=== PATIENT | male | born 1945 | race Caucasian/White ===

== ENCOUNTER 2017-01-07 08:58 | Observation (INO) | payer MEDICARE ==
--- NOTE | 2017-01-07 10:46 | RAD ---
INDICATION: Fever COMPARISON: Chest x-ray June 26, 2014 TECHNIQUE: An AP portable view obtained at 1020 hours is submitted. FINDINGS: Bones/Soft Tissues: There are no acute bony findings. Cardiomediastinal: The cardiomediastinal silhouette is normal. Lungs: There are no infiltrates. Pleura: There are no pleural effusions. Other: None IMPRESSION: NO ACTIVE DISEASE.
[2017-01-07 11:28] LABS: Hematocrit 38 % (42-52); Hemoglobin 12.6 g/dl (14.0-18.0); Mean Corpuscular HGB Conc 33 g/dl (31-36); Mean Corpuscular Hemoglobin 28 pg (27-31); Mean Corpuscular Volume 83 fL (80-94); Mean Platelet Volume 9 um3 (7.4-10.4); Red Blood Count 4.56 10^6/ul (4.0-5.4); Red Cell Distribution Width 15 % (10.5-15); White Blood Count 7.1 10^3/ul (3.5-10.8)
[2017-01-07 11:40] LABS: Albumin 4.1 g/dL (3.2-5.2); BUN/Creatinine Ratio 28.5 (8-20); Calcium 10.4 mg/dL (8.6-10.3); EGFR African American 23.3 (>60); EGFR Non-African American 18.1 (>60); Globulin 3.6 g/dL (2-4); Potassium 4.5 mmol/L (3.5-5.0); Total Bilirubin 0.5 mg/dL (0.2-1.0); Total Protein 7.7 g/dL (6.4-8.9)
[2017-01-07 11:42] LABS: Troponin I 0.01 ng/mL (<0.04)
[2017-01-07] MEDS ORDERED: cefTRIAXone(*) 1 GM in NS 0.9% 50 ML* 50 ML IVPB ONE (11:47)
[2017-01-07] MEDS ORDERED: NS 0.9% 1000 ML* 1,000 ML IV ONE (11:47)
[2017-01-07] MEDS ORDERED: oxyCODONE/Acetamin 5/325 MG* TAB PO ONE (12:12)
[2017-01-07 12:40] LABS: Urine Bacteria 3+ (Absent); Urine Bilirubin Negative (Negative); Urine Glucose Negative (Negative); Urine Nitrite Negative (Negative)
[2017-01-07] MEDS: Pregabalin CAP(*) 50 MG PO SCH ×2 (15:16→21:33)
[2017-01-07] MEDS: Heparin VIAL(*) 5000 UNITS/ML VIAL (FIVE THOUSAND) SUBCUT SCH ×2 (15:16→21:33)
[2017-01-07] MEDS: NS 0.9% 1000 ML* 1,000 ML IV SCH (17:54)
--- NOTE | 2017-01-07 22:29 | HP ---
CC: Dr. Griffiths* HISTORY AND PHYSICAL: DATE OF ADMISSION: 01/07/17 PRIMARY CARE PROVIDER: Dr. Griffiths. ATTENDING PHYSICIAN WHILE IN THE HOSPITAL: Ashley Harper DO* (report dictated by Alejandro Montiel NP). CHIEF COMPLAINT: Altered mental status. HISTORY OF PRESENT ILLNESS: Mr. Merino is a 71-year-old male patient. He has a history of ependymoma tumor of the spinal cord, wheelchair bound and self- cathed and has chronic pain secondary to this and is on chronic narcotics. He has a history of hypertension, GERD, anemia, MATY. In addition to this, he has a history of carotid artery disease, hyperlipidemia, and BPH. He came into the ER today. Sunday, he has been complaining of having increasing pain in his back. He saw his primary pain specialist and the patient was changed from Opana to morphine ER 30 mg b.i.d. The patient did well on Sunday according to the , he was tolerating it well but then on Sunday, she noticed that he was a little bit more confused, having trouble with the month which he normally does, but he was not as quick to respond and he was not acting himself. On Sunday, he was very drowsy. She felt that she probably should have brought him in last night, but she was hopeful that he would get better. What really made her concerned is today they were talking about him self-cathing and apparently she believes he had not self- cathed in probably 24 hours because he forgot. He could not do it and that was alarming to her because he has been self-cathing for at least 10 years and because of this, they were concerned. Yesterday, he was complaining that he just could not get warm. He needed extra blankets throughout the day. She was worried that maybe he had a fever. There was no nausea or vomiting. He denied having any changes in his urine of it being cloudy or having any foul odor, but nonetheless, there was concern because his mentation was not at his baseline. There was no facial droop. There was no difficulty with word finding. No weakness to one side. The patient's brought him in today via the private vehicle. He was evaluated and it was noted that he appeared to be in acute renal failure, it looked like he had a urinary tract infection and because of these findings, we were asked to evaluate for admission. PAST MEDICAL HISTORY: Significant for: 1. Hypertension. 2. GERD. 3. Anemia. 4. MATY. 5. Carotid artery disease. 6. Ependymoma tumor of the cord. 7. Hyperlipidemia. 8. BPH. PAST SURGICAL HISTORY: 1. He has had an appendectomy. 2. Back surgery x4. 3. Tonsillectomy. HOME MEDICATIONS: According to the list that we were able to obtain include: 1. Norvasc 5 mg p.o. daily. 2. Metamucil 500 mg p.o. 4 times a day as needed. 3. Lyrica 150 mg p.o. t.i.d. 4. Potassium 10 mEq p.o. daily. 5. Prilosec 40 mg daily. 6. Benicar 5 mg daily. 7. Morphine ER 30 mg p.o. b.i.d. 8. Garlic 1 capsule p.o. b.i.d. 9. Lasix 2 tablets p.o. b.i.d. 10. Folic acid 400 mcg p.o. daily. 11. Fish oil 2000 units p.o. b.i.d. 12. B12 1000 mcg p.o. daily. 13. Vitamin D3 2000 units p.o. b.i.d. 14. Calcium polycarbophil tablet 825 mg p.o. b.i.d. 15. Aspirin 81 mg daily. ALLERGIES: To medications include CHICKEN, VANILLA EXTRACT and ATORVASTATIN. FAMILY HISTORY: Father did have a history of Parkinson's. Mother who is at the age of 98 and is still alive, she is actually hospitalized currently according to the patient. SOCIAL HISTORY: The patient does not smoke. He does not drink. Surrogate decision maker is his . REVIEW OF SYSTEMS: There was complaints of chills. There is a documented fever here. There is no significant weight change. There was no double vision. There is no ear discharge. No rhinorrhea. There was no sore throat. There was no thyroid enlargement. There was no report of chest pain. There was no orthopnea. There was no nocturnal dyspnea. There was no abdominal pain. There was no back pain. There was no flank pain. There was no dysuria or frequency. No loss of consciousness, no pruritus and no skin ulcerations. Review of 14 systems completed, all others negative. PHYSICAL EXAMINATION GENERAL: At this time, Mr. Merino is a 71-year-old male patient, he appears to be well nourished, well developed. He does not appear to be in any acute distress. He is awake and he is alert. VITAL SIGNS: Blood pressure 139/70, pulse 86, respirations 20, O2 sat 96%, initial temperature was 100. HEENT: Head is atraumatic and normocephalic. Eyes: EOMs are intact. Sclerae anicteric and not pale. Throat: Oral mucosa appears to be dry. No oropharyngeal erythema. NECK: Supple. LUNGS: Clear to auscultation bilaterally. No wheezes, rales, or rhonchi. HEART: Sounds S1 and S2. Regular rate and rhythm. No murmurs, rubs, or gallops. ABDOMEN: Soft. It was flat. Nontender. Bowel sounds present. EXTREMITIES: Pulses +2 throughout. He can move the lower extremities with the upper extremities with 5/5 strength. NEUROLOGIC: The patient is awake. He is alert. He is oriented x3. Tongue is midline. Saw Grinder were equal. No gross focal deficits. SKIN: Intact. LABORATORY DATA: Labs today revealed WBC 7.1, RBC of 4.56, hemoglobin 12.6, hematocrit 38, platelet count 189,000. The INR was 0.94. PTT is 32.1. Sodium was 135, potassium 4.5, chloride 99, bicarbonate was 26, BUN was 96, creatinine was 3.37 and baseline is 2.4, glucose 109, lactic 0.6, calcium 10.4. Total bilirubin 0.5. AST 13, ALT 12, alkaline phosphatase 21, troponin 0.01, albumin of 4.1. Urine showed 1+ leukocyte esterase, 3+ bacteria. He did have a chest x- ray obtained today which under my review, I do not appreciate any acute infiltrates. Official report is pending. Old medical records were reviewed. ASSESSMENT AND PLAN: Mr. Merino is a 71-year-old male patient coming into the ER today with complaints of altered mental status. He will be admitted under observation status for: 1. Altered mental status. I suspect that this is multifactorial. It is probably related to the morphine ER. With his renal failure, the metabolites probably built up and then he became confused. In addition to this, he stopped straight cathing, it looks like he developed a urinary tract infection. He had a low grade fever here and that probably threw him into acute renal failure, so at this point I am going to hold his morphine ER. We can touch base with Dr. Castro tomorrow to see what we should do if we should reduce this dose. I am going to put him on Rocephin and hydrate the patient and we will continue to follow. He is returning to his baseline slowly. I will get neuro checks every 4 hours, but it sounds like this was a delirium most likely secondary to polypharmacy and maybe urinary tract infection. 2. Urinary tract infection. At this point, again I will put him on Rocephin. 3. Acute renal failure. This probably is postobstructive because he cannot empty his bladder from neurogenic bladder. I am going to send off the FeNa. He is draining urine now. We will repeat his labs tomorrow. His potassium is fine. If this is not coming down, we could consider imaging the kidneys, but at this point he is not having any pain and he is making urine, so we will monitor this and get a FeNa. 4. Hypertension. Continue medications as prescribed. 5. Gastroesophageal reflux disease. Continue medications as prescribed. 6. History of anemia. The H and H is stable. 7. Obstructive sleep apnea. I have ordered CPAP. 9. Carotid artery disease. Continue with secondary prevention. He is on an aspirin, continue this. 10. Chronic pain secondary to the spinal tumor. Again, we will hold the morphine ER today. We will probably touch base with Dr. Castro tomorrow and see if he has any recommendations for dose reduction. 11. Benign prostatic hypertrophy. He can follow with Dr. Castaneda. 12. Hyperlipidemia. Continue his current medical regimen. 13. DVT prophylaxis. He is high risk. He was placed on heparin subcu. 14. Code status. Full code. 14. Fluids, electrolytes, and nutrition. He can have a regular diet. TIME SPENT: Time spent on the admission was 60 minutes, greater than half the time was spent [id number] with the patient obtaining my history of physical; the other half time was spent going over the plan of care with the patient and implementing plan of care. I did discuss the plan of care with my attending, Dr. Harper, she is in agreement. ALEJANDRO MONTIEL NP [id number]/[facility] #: [id number] [facility]ITALCharl[facility]
[2017-01-08] MEDS: NS 0.9% 1000 ML* 1,000 ML IV SCH (04:31)
[2017-01-08] MEDS: Heparin VIAL(*) 5000 UNITS/ML VIAL (FIVE THOUSAND) SUBCUT SCH ×2 (06:08→13:02)
[2017-01-08 06:42] LABS: Hematocrit 34 % (42-52); Mean Corpuscular HGB Conc 33 g/dl (31-36); Mean Corpuscular Hemoglobin 28 pg (27-31); Mean Corpuscular Volume 84 fL (80-94); Mean Platelet Volume 9 um3 (7.4-10.4); Red Blood Count 3.99 10^6/ul (4.0-5.4); Red Cell Distribution Width 15 % (10.5-15); White Blood Count 5.8 10^3/ul (3.5-10.8)
[2017-01-08 07:01] LABS: BUN/Creatinine Ratio 33.6 (8-20); Calcium 9.8 mg/dL (8.6-10.3); EGFR African American 31.2 (>60); EGFR Non-African American 24.2 (>60)
[2017-01-08 07:03] LABS: Potassium 4.1 mmol/L (3.5-5.0)
[2017-01-08] MEDS ORDERED: oxyCODONE TAB* 5 MG TAB PO PRN ×3 (08:08→14:00)
[2017-01-08] MEDS ORDERED: amLODIPine TAB* 5 MG PO SCH (09:00)
[2017-01-08] MEDS ORDERED: Aspirin Low Dose CHEW TAB* 81 MG PO SCH (09:00)
[2017-01-08] MEDS ORDERED: Omeprazole CAP* 20 MG PO SCH (09:00)
[2017-01-08 09:20] VITALS: BP 185/63
[2017-01-08] MEDS ORDERED: Polyethylene Glycol 3350* 17 GM PACKET PO PRN (09:44)
[2017-01-08] MEDS ORDERED: Senna TAB PO ONE (09:44)
[2017-01-08] MEDS: Pregabalin CAP(*) 50 MG PO SCH ×2 (09:58→13:01)
[2017-01-08] MEDS ORDERED: Valsartan TAB* 40 MG PO SCH (10:00)
[2017-01-08] MEDS: Acetaminophen TAB* 325 MG PO PRN ×2 (10:00→15:15)
[2017-01-08] MEDS ORDERED: Furosemide TAB* 20 MG PO SCH (10:00)
[2017-01-08] MEDS ORDERED: cefTRIAXone VIAL(*) 1,000 MG in NS 0.9% 50 ML* 50 ML IVPB SCH (12:00)
[2017-01-08] MEDS: Psyllium PAK PO SCH ×2 (13:00→15:17)
[2017-01-08] MEDS ORDERED: Cyclobenzaprine TAB* 10 MG PO ONE (13:02)
--- NOTE | 2017-01-08 15:29 | DCNOTE ---
Patient seen a number of times throughout the day. Pain medications changed to Oxycodone [address] Castro and then to 20 mg with good effect. Also tolerated flexeril. Fischer was removed and patient was able to straight cath himself. On exam, RRR, s1 and s2 present, no m/g/r, abd obese, mild distension, soft, BS+ , lungs CTA B/L Renal function returned to baseline. Will discharge home with Oxycodone 20 mg PO q4h and low dose flexeril. Will f/u with PCP and Dr. Diallo as an outpatient. Has appt in late January for spinal cord stimulator.
--- NOTE | 2017-01-09 10:36 | DS ---
CC: Dr. Griffiths; Dr. Yassine Castro DISCHARGE SUMMARY: DATE OF ADMISSION: 01/07/17 DATE OF DISCHARGE: 01/08/17 PRIMARY CARE PHYSICIAN: Dr. Griffiths. PRINCIPAL DISCHARGE DIAGNOSES: 1. Acute on chronic kidney disease secondary to urinary retention. 2. Altered mental status likely due to narcotics. SECONDARY DIAGNOSES: 1. Chronic back pain due to ependymoma of the spinal cord. 2. Hypertension. 3. Gastroesophageal reflux disease. 4. Anemia. 5. Obstructive sleep apnea. 6. Coronary artery disease. 7. Hyperlipidemia. 8. Benign prostatic hypertrophy. DISCHARGE MEDICATION REGIMEN: 1. Tylenol 650 mg by mouth every 4 hours as needed for pain. 2. Flexeril 5 mg by mouth 3 times daily as needed for pain. 3. Oxycodone 20 mg by mouth every 4 hours as needed for pain. 4. Amlodipine 5 mg by mouth daily. 5. Potassium chloride 10 mEq by mouth daily. 6. Lyrica 150 mg by mouth 3 times daily. 7. Omeprazole 40 mg by mouth daily. 8. Garlic 1 capsule by mouth 3 times daily. 9. Lasix 40 mg by mouth 3 times daily. 10. Aspirin 81 mg by mouth daily. 11. Olmesartan 5 mg by mouth daily. 12. Folic acid 400 mcg by mouth daily. 13. Cholecalciferol 2000 units by mouth 2 times daily. 14. Vitamin B12 1000 mcg by mouth daily. 15. Calcium polycarbophil 825 mg by mouth 3 times daily. 16. Psyllium 500 mg by mouth 4 times daily as needed for constipation. 17. Fish oil 2000 mg by mouth 2 times daily. STUDIES DONE DURING HOSPITALIZATION: Chest x-ray, impression: No active disease. HISTORY OF PRESENT ILLNESS AND HOSPITAL SUMMARY: Please see the full history and physical by Alejandro newsome NP for full details. Briefly, Mr. Merino is a 71-year- old male with a past medical histor y as above, who presented to the hospital after a few days of increasing confusion, drowsiness, and inability to self-cath. This was in the context of a recent change in patient's long-term pain medi cations from Opana to extended release morphine. This was after the patient's called Dr. Yonatan valencia and stated that he was having significant increase in his pain. On admission to the hospital, t he patient's mental status was starting to clear. He was noted to have increased BUN and creatinine from his baseline, which was likely due to the patient's inability to self-cath at home due to his altered mental status and confusion. A Fischer was placed with improvement in the patient's renal fun ction, which was nearly back to baseline. I spoke with Dr. Castro on the phone and decision was m garrett to transition the patient to oxycodone 15 mg, short acting to see how that handle the pain. It seemed to make it nearly tolerable and the decision was made to increase the dose to 20 mg every 4 h ours as the discharge regimen. We will also send the patient home on Flexeril. The patient was able to help transfer himself to his wheelchair, was able to straight cath on his ow n after the Fischer was removed and also had a bowel movement here in the hospital. The patient and h is family are agreeable to discharge home with this current regimen, and the patient will need to fo llow up with Dr. Castro as well as the PCP, Dr. Griffiths as an outpatient. TIME SPENT: Total time spent on this discharge 45 minutes. This is the summary of the hospitalization, please see the full medical record for further details. [id number]/[facility] #: [id number]
--- NOTE | 2017-01-14 23:13 | ED ---
Salena Fulton Auryana, scribed for Jassi Espinosa MD on 01/07/17 at 1121 . Altered Mental Status - HPI Summary HPI Summary: 71 year old male presents with AMS. reports that he found the patient sleeping in his wheelchair by the toliet - and hadn't catheterized - reports that patient hasn't been catheterizing himself as much as he should. is primary historian. reports that 5 days ago his medication was changed to morphine PO once a day 30 mg - reports pain was worsening. She also reports that the patient has a decreased appetite and chills - unsure of fever. He reports back pain. He denies vomiting, diarrhea, cough, SOB/trouble breathing, or any chest pain or tightness. 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 - History Of Current Complaint Chief Complaint: EDAltMentalStatus Stated Complaint: AMS Time Seen by Provider: 01/07/17 09:58 Hx Obtained From: Patient, Family/Jumpbasting Canvas Baster - Onset/Duration: Still Present Timing: Constant Severity Initially: Mild Severity Currently: Mild Character: Confusion, Responsiveness - INCREASED SLEEPING Aggravating Factor(s): Medication Change - NOW ON MORPHINE Associated Signs And Symptoms: Negative: Negative - DECREASED APPETITE, CHILLS, AND INCREASED SLEEPINESS AND CONFUSION, BACK PAIN - Allergies/Home Medications Allergies/Adverse Reactions: Allergies Allergy/AdvReac Type Severity Reaction Status Date / Time Chicken Allergy Allergy Severe Hives Verified 01/07/17 10:20 Vanilla Allergy Severe Hives Verified 01/07/17 10:20 Wheat Extract Allergy Severe Hives Verified 01/07/17 10:20 Atorvastatin [From Lipitor] Allergy See Comment Verified 01/07/17 10:20 GRAPES Allergy Severe Hives Uncoded 01/07/17 10:20 Home Medications: Home Medications Calcium Polycarbophil TAB* 825 mg PO BID 01/07/17 [History Confirmed 01/07/17] Fish Oil 2,000 mg PO BID 01/07/17 [History Confirmed 01/07/17] PMH/Surg Hx/FS Hx/Imm Hx Endocrine/Hematology History: Denies: Hx Diabetes Cardiovascular History: Reports: Hx Hypercholesterolemia, Hx Hypertension Denies: Hx Pacemaker/ICD Respiratory History: Reports: Hx Sleep Apnea - new DX severe MATY 02/2013, Other Respiratory Problems/Disorders - LATENT TB GI History: Reports: Other GI Disorders - neurogenic bowel History: Reports: Hx Renal Disease, Other Problems/Disorders - neurogenic bladder Musculoskeletal History: Reports: Other Musculoskeletal History - chronic back pain Denies: Hx Rheumatoid Arthritis, Hx Osteoporosis Sensory History: Reports: Hx Contacts or Glasses, Hx Hearing Problem Denies: Hx Hearing Aid Opthamlomology History: Reports: Hx Contacts or Glasses Neurological History: Reports: Hx Spinal Cord Injury, Other Neuro Impairments/ Disorders - Ependymoma tumor w/ destruction of vertebrae Psychiatric History: Denies: Hx Panic Disorder - Cancer History Cancer Type, 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, BRAIN Hx Chemotherapy: No Hx Radiation Therapy: Yes - 1970 - Surgical History Surgery Procedure, Year, and Place: SPINAL SURGERY - 4 SURGERIES FROM [id number] (EPENDYMOMA), APPENDECTOMY 12/21 - Rt ENDARTERECTOMY 2014, TONSILLECTOMY ( as a child) Hx Anesthesia Reactions: No - Immunization History Date of Tetanus Vaccine: PT STATES UNSURE Infectious Disease History: No Infectious Disease History: Reports: Hx Hepatitis - as a child Denies: History Other Infectious Disease, Traveled Outside the [place] in Last 30 Days - Family History Known Family History: Positive: Other - NO GI ISSUES - Social History Occupation: Retired Alcohol Use: Weekly Alcohol Amount: one a week Substance Use Type: Reports: None Substance Use Comment - Amount & Last Used: tramadol Hx Tobacco Use: No Smoking Status (MU): Never Smoked Tobacco Have You Smoked in the Last Year: No Review of Systems Positive: Chills. Negative: Fever Eyes: Negative Negative: Erythema ENT: Negative Negative: Sore Throat Cardiovascular: Negative Negative: Chest Pain Respiratory: Negative Negative: Shortness Of Breath, Cough Positive: Other - decreased appetite . Negative: Abdominal Pain, Vomiting, Nausea Genitourinary: Negative Positive: no symptoms reported. Negative: dysuria, hematuria Musculoskeletal: Negative Negative: Myalgia, Edema Skin: Negative Negative: Rash Neurological: Negative, Other - no dizziness Positive: Other - AMS All Other Systems Reviewed And Are Negative: Yes Physical Exam - Summary Physical Exam Summary: Constitutional: Well-developed, Well-nourished, Alert. (-) Distressed Skin: Warm, Dry HENT: Normocephalic; Atraumatic Eyes: Conjunctiva normal Neck: Musculoskeletal ROM normal neck. (-) JVD, (-) Stridor, (-) Tracheal deviation Cardio: Rhythm regular, rate normal, Heart sounds normal; Intact distal pulses; The pedal pulses are 2+ and symmetric. Radial pulses are 2+ and symmetric. (-) Murmur Pulmonary/Chest wall: Effort normal. (-) Respiratory distress, (-) Wheezes, (-) Rales Abd: Soft, (-) Tenderness, (-) Guarding, (-) Rebound. ABD somewhat distended. Musculoskeletal: (-) Edema. Back is hot to touch. No movement in the Lower ext. Lymph: (-) Cervical adenopathy Neuro: Alert, Oriented x3 Psych: Mood and affect Normal Triage Information Reviewed: Yes Vital Signs On Initial Exam: Initial Vitals Temp Pulse Resp BP Pulse Ox 100 F 100 17 159/90 93 01/07/17 08:59 01/07/17 08:59 01/07/17 08:59 01/07/17 08:59 01/07/17 08:59 Vital Signs Reviewed: Yes Head/Face: Positive: Normal Head/Face Inspection Eyes: Positive: Normal ENT: Positive: Normal ENT inspection Neck: Positive: Supple, Nontender, No Lymphadenopathy Respiratory/Lung Sounds: Positive: Clear to Auscultation Cardiovascular: Positive: Normal Abdomen Description: Positive: Nontender Bowel Sounds: Positive: Present Male Genital Exam: Positive: normal genitalia, normal prostate, no hernia Musculoskeletal: Positive: Normal, Strength/ROM Intact Neurological: Positive: Normal Psychiatric: Positive: Normal - Willard Coma Scale Best Eye Response: 4 - Spontaneous Best Motor Response: 6 - Obeys Commands Best Verbal Response: 5 - Oriented Diagnostics - Vital Signs Vital Signs Temp Pulse Resp BP Pulse Ox 01/07/17 09:30 156/74 01/07/17 09:21 95 168/64 93 01/07/17 09:19 83 90 01/07/17 08:59 100 F 100 17 159/90 93 - Laboratory Lab Results: Lab Results 01/07/17 01/07/17 01/07/17 Range/Units 11:10 11:10 11:10 WBC 7.1 (3.5-10.8) 10^3/ul RBC 4.56 (4.0-5.4) 10^6/ul Hgb 12.6 L (14.0-18.0) g/dl Hct 38 L (42-52) % MCV 83 (80-94) fL MCH 28 (27-31) pg MCHC 33 (31-36) g/dl RDW 15 (10.5-15) % Plt Count 189 (150-450) 10^3/ul MPV 9 (7.4-10.4) um3 Neut % (Auto) 64.6 (38-83) % Lymph % (Auto) 14.5 L (25-47) % [place] % (Auto) 17.6 H (1-9) % Eos % (Auto) 1.8 (0-6) % Baso % (Auto) 1.5 (0-2) % Absolute Neuts (auto) 4.6 (1.5-7.7) 10^3/ul Absolute Lymphs (auto) 1.0 (1.0-4.8) 10^3/ul Absolute Monos (auto) 1.2 H (0-0.8) 10^3/ul Absolute Eos (auto) 0.1 (0-0.6) 10^3/ul Absolute Basos (auto) 0.1 (0-0.2) 10^3/ul Absolute Nucleated RBC 0 10^3/ul Nucleated RBC % 0 INR (Anticoag Therapy) 0.94 (0.89-1.11) APTT 32.1 (26.0-36.3) seconds Sodium 135 (133-145) mmol/L Potassium 4.5 (3.5-5.0) mmol/L Chloride 99 L (101-111) mmol/L Carbon Dioxide 26 (22-32) mmol/L Anion Gap 10 (2-11) mmol/L BUN 96 H (6-24) mg/dL Creatinine 3.37 H (0.67-1.17) mg/dL Est GFR ( Amer) 23.3 (>60) Est GFR (Non-Af Amer) 18.1 (>60) BUN/Creatinine Ratio 28.5 H (8-20) Glucose 109 H (70-100) mg/dL Lactic Acid (0.5-2.0) mmol/L Calcium 10.4 H (8.6-10.3) mg/dL Total Bilirubin 0.50 (0.2-1.0) mg/dL AST 13 (13-39) U/L ALT 12 (7-52) U/L Alkaline Phosphatase 71 (34-104) U/L Troponin I 0.01 (<0.04) ng/mL Total Protein 7.7 (6.4-8.9) g/dL Albumin 4.1 (3.2-5.2) g/dL Globulin 3.6 (2-4) g/dL Albumin/Globulin Ratio 1.1 (1-3) Urine Color Urine Appearance Urine pH (5-9) Ur Specific [place] (1.010-1.030) Urine Protein (Negative) Urine Ketones (Negative) Urine Blood (Negative) Urine Nitrate (Negative) Urine Bilirubin (Negative) Urine Urobilinogen (Negative) Ur Leukocyte Esterase (Negative) Urine WBC (Auto) (Absent) Urine RBC (Auto) (Absent) Ur Squamous Epith Cells (Absent) Urine Bacteria (Absent) Urine Glucose (Negative) 01/07/17 01/07/17 Range/Units 11:10 12:05 WBC (3.5-10.8) 10^3/ul RBC (4.0-5.4) 10^6/ul Hgb (14.0-18.0) g/dl Hct (42-52) % MCV (80-94) fL MCH (27-31) pg MCHC (31-36) g/dl RDW (10.5-15) % Plt Count (150-450) 10^3/ul MPV (7.4-10.4) um3 Neut % (Auto) (38-83) % Lymph % (Auto) (25-47) % [place] % (Auto) (1-9) % Eos % (Auto) (0-6) % Baso % (Auto) (0-2) % Absolute Neuts (auto) (1.5-7.7) 10^3/ul Absolute Lymphs (auto) (1.0-4.8) 10^3/ul Absolute Monos (auto) (0-0.8) 10^3/ul Absolute Eos (auto) (0-0.6) 10^3/ul Absolute Basos (auto) (0-0.2) 10^3/ul Absolute Nucleated RBC 10^3/ul Nucleated RBC % INR (Anticoag Therapy) (0.89-1.11) APTT (26.0-36.3) seconds Sodium (133-145) mmol/L Potassium (3.5-5.0) mmol/L Chloride (101-111) mmol/L Carbon Dioxide (22-32) mmol/L Anion Gap (2-11) mmol/L BUN (6-24) mg/dL Creatinine (0.67-1.17) mg/dL Est GFR ( Amer) (>60) Est GFR (Non-Af Amer) (>60) BUN/Creatinine Ratio (8-20) Glucose (70-100) mg/dL Lactic Acid 0.6 (0.5-2.0) mmol/L Calcium (8.6-10.3) mg/dL Total Bilirubin (0.2-1.0) mg/dL AST (13-39) U/L ALT (7-52) U/L Alkaline Phosphatase (34-104) U/L Troponin I (<0.04) ng/mL Total Protein (6.4-8.9) g/dL Albumin (3.2-5.2) g/dL Globulin (2-4) g/dL Albumin/Globulin Ratio (1-3) Urine Color Yellow Urine Appearance Clear Urine pH 5.0 (5-9) Ur Specific [place] 1.009 L (1.010-1.030) Urine Protein Negative (Negative) Urine Ketones Negative (Negative) Urine Blood Negative (Negative) Urine Nitrate Negative (Negative) Urine Bilirubin Negative (Negative) Urine Urobilinogen Negative (Negative) Ur Leukocyte Esterase 1+ H (Negative) Urine WBC (Auto) Trace(0-5/hpf) (Absent) Urine RBC (Auto) Absent (Absent) Ur Squamous Epith Cells Present H (Absent) Urine Bacteria 3+ H (Absent) Urine Glucose Negative (Negative) Result Diagrams: 01/08/17 06:18 01/08/17 06:18 Lab Statement: Any lab studies that have been ordered have been reviewed, and results considered in the medical decision making process. - Radiology CXR Xray Interpretation: No Acute Changes Radiology Interpretation Completed By: Radiologist Altered Mental Statu Course/Dx - Course Course Of Treatment: 71 year old male presents with AMS. reports that he found the patient sleeping in his wheelchair by the toliet - and hadn't catheterized - reports that patient hasn't been catheterizing himself as much as he should. is primary historian. reports that 5 days ago his medication was changed to morphine PO once a day 30 mg - reports pain was worsening. She also reports that the patient has a decreased appetite and chills - unsure of fever. He reports back pain. He denies vomiting, diarrhea, cough, SOB/trouble breathing, or any chest pain or tightness. 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 Blood work WNL except Low HGB/HCT, Ca 10.4, Glucose 109, Cl- 99. NML coagulation studies. NML lactic acid. UA contaminated. CXR - NAD. DDx: U.T.I., sepsis, obstructive renal failure, medication adverse effect. Dx: post obstructive renal failure and delirium. Patient will be admitted to [facility] - by Alejandro Montiel. Patient refused Spinal tap offered by Alejandro Montiel due to spinal tumor and multiple surgeries. - Diagnoses Differential Diagnosis/HQI/PQRI: Sepsis, Other - U.T.I. OBSTRUCTIVE RENAL FAILURE, MEDICATION ADVERSE EFFECT Discharge Diagnoses: OBSTRUCTIVE RENAL FAILURE, Delirium - Provider Notifications Discussed Care Of Patient With: Alejandro Montiel Time Discussed With Above Provider: 14:44 - AGREES TO ADMIT Discharge - Discharge Plan Condition: Good Disposition: ADMITTED TO [facility] The documentation as recorded by the Salena rodriguez Auryana accurately reflects the service I personally performed and the decisions made by , Jassi Espinosa MD.
== END 2017-01-08 17:20 | disposition home or self-care (01) ==
LOC: ED 08:58 → MED 13:00
PROVIDERS: ADMIT Hospitalist; ATTEND Hospitalist
DX: N17.9 Acute kidney failure, unspecified (principal); N40.1 Benign prostatic hyperplasia with lower urinary tract symptoms; R33.9 Retention of urine, unspecified; I10 Essential (primary) hypertension; R41.82 Altered mental status, unspecified; K21.9 Gastro-esophageal reflux disease without esophagitis; D64.9 Anemia, unspecified; G47.33 Obstructive sleep apnea (adult) (pediatric); I25.10 Atherosclerotic heart disease of native coronary artery without angina pectoris; C41.2 Malignant neoplasm of vertebral column; G89.29 Other chronic pain; E78.5 Hyperlipidemia, unspecified; Z79.899 Other long term (current) drug therapy; Z88.8 Allergy status to other drugs, medicaments and biological substances
CPT/HCPCS: 36415; 71010; 80048; 80053; 81003; 81015; 82570; 83605; 84300; 84484; 85025; 85610; 85730; 87040; 87077; 87086; 87186; 94660; 96361; 96365; 96372; 99284; A9270-GY; G0378; J0696; J1644

== ENCOUNTER 2017-02-12 08:46 | Inpatient (IN) | payer MEDICARE ==
[2017-02-12] MEDS ORDERED: NS 0.9% 1000 ML* 1,000 ML IV ONE (09:40)
[2017-02-12 09:48] LABS: Hematocrit 32 % (42-52); Hemoglobin 10.5 g/dl (14.0-18.0); Mean Corpuscular HGB Conc 33 g/dl (31-36); Mean Corpuscular Hemoglobin 27 pg (27-31); Mean Corpuscular Volume 82 fL (80-94); Mean Platelet Volume 9 um3 (7.4-10.4); Red Blood Count 3.88 10^6/ul (4.0-5.4); Red Cell Distribution Width 16 % (10.5-15); White Blood Count 9.6 10^3/ul (3.5-10.8)
[2017-02-12 10:03] LABS: Albumin 2.9 g/dL (3.2-5.2); BUN/Creatinine Ratio 25.7 (8-20); C Reactive Protein 95.45 mg/L (< 5.00); Calcium 9.4 mg/dL (8.6-10.3); EGFR Non-African American 20.2 (>60); Potassium 4.7 mmol/L (3.5-5.0); Total Bilirubin 0.5 mg/dL (0.2-1.0); Total Protein 5.9 g/dL (6.4-8.9)
[2017-02-12 10:05] LABS: Troponin I 0.03 ng/mL (<0.04)
--- NOTE | 2017-02-12 10:34 | RAD ---
Indication: Weakness. Single frontal view of the chest performed at 1005 hours was reviewed. Comparison is made with previous exam dated January 07, 2017. Cardiomegaly is noted. Airspace disease is noted in the right lung field which may represent pneumonia. IMPRESSION: SUGGESTED OF OF RIGHT-SIDED PNEUMONIA. LEFT LUNG FIELD IS CLEAR.
[2017-02-12 10:53] LABS: Urine Bacteria 1+ (Absent); Urine Bilirubin Negative (Negative); Urine Glucose Negative (Negative); Urine Nitrite Negative (Negative)
[2017-02-12 10:54] LABS: Benzodiazepine Urine Screen None Detected (None Detect)
[2017-02-12 10:58] LABS: Erythrocyte Sed Rate 83 mm/Hr (0-40)
--- NOTE | 2017-02-12 11:34 | RAD ---
HISTORY: Altered mental status COMPARISONS: MRI of the brain dated February 18, 2015 TECHNIQUE: Multiple contiguous axial CT scans were obtained of the head without intravenous contrast. FINDINGS: HEMORRHAGE/INFARCT: There is no hemorrhage or acute infarct. MASSES/SHIFT: There is no mass or shift. EXTRA-AXIAL SPACES: There are no extra-axial fluid collections. SULCI AND VENTRICLES: The sulci and ventricles are normal in size and position for the patient's stated age. CEREBRUM: There are no focal parenchymal abnormalities. BRAINSTEM: There are no focal parenchymal abnormalities. CEREBELLUM: There are no focal parenchymal abnormalities. VESSELS: The vessels are grossly normal. PARANASAL SINUSES: The paranasal sinuses are clear. ORBITS: The orbits are unremarkable. BONES AND SOFT TISSUE: No bone or soft tissue abnormalities are noted. OTHER: None IMPRESSION: NO ACUTE INTRACRANIAL PATHOLOGY.
[2017-02-12] MEDS ORDERED: Loperamide CAP* 2 MG PO PRN (12:25)
[2017-02-12] MEDS: Pregabalin CAP(*) 50 MG PO SCH ×2 (14:33→22:05)
[2017-02-12] MEDS: NS 0.9% 1000 ML* 1,000 ML IV SCH (14:34)
[2017-02-12] MEDS: Heparin VIAL(*) 5000 UNITS/ML VIAL (FIVE THOUSAND) SUBCUT SCH ×2 (14:34→22:05)
[2017-02-12] MEDS: Levofloxacin 750 MG IVPREMIX(* 750 MG/150 ML BAG IVPB SCH (14:35)
[2017-02-12] MEDS: oxyCODONE TAB* 5 MG TAB PO PRN (15:48)
--- NOTE | 2017-02-12 16:16 | HP ---
CC: Dr. Griffiths * [facility] MEDICINE HISTORY AND PHYSICAL: DATE OF ADMISSION: 02/12/17 PRIMARY CARE PHYSICIAN: Dr. Griffiths. ATTENDING PHYSICIAN: Nicanor Luong MD * (dictation provided by Steve Barr NP.). CHIEF COMPLAINT: Weakness and confusion. HISTORY OF PRESENT ILLNESS: Mr. Merino is a 71-year-old male with a past medical history of ependymoma to the spine with chronic back pain who is now wheelchair bound. He also has a neurogenic bladder with chronic Fischer; hypertension; GERD; asthma; obstructive sleep apnea, on BiPAP; coronary artery disease, and hyperlipidemia. He was planned to go to [place], [facility] for the implantation of a nerve stimulator to his back to help with chronic back pain. His reports that over the past few months, the patient has had increasing back pain. He, in the past 3 weeks, has also been having diarrhea. She reports that his stool is soft, but not watery. He is incontinent of stool and will fill several Depends, 3 to 5 per day. They have reviewed this with their neurologists, who instructed them to start Imodium. Despite the diarrhea, he was feeling okay yesterday. However, today the patient's noted that he was confused and very weak. He was unable to help with any bed mobility per usual. She called EMS who confirmed the patient's weakness and noted that he was having difficulty even holding his head up when they arrived. In the emergency room, Mr. Merino was given 2 L of IV fluids and with that his mentation has been improved and he is much more awake and alert. He is oriented x3. His white count is normal. He has anemia of 10.5, which is a bit less than he was back on 01/26/17, when he was 12.3. However, his stool occult blood is negative. His ESR is 83. His CRP is 95.45. Sodium is a low at 128. His BUN and creatinine are slightly up from baseline at 79 and 3.07 respectively. His chest x-ray shows a right-sided pneumonia. His O2 saturation is currently normal on room air. PAST MEDICAL HISTORY: 1. Ependymoma to the spine, found in his early 20s with multiple surgeries, now with chronic pain and inability to ambulate. 2. Chronic Fischer, secondary to neurogenic bladder. 3. Hypertension. 4. GERD. 5. Asthma. 6. Obstructive sleep apnea with BiPAP. 7. Coronary artery disease. 8. Hyperlipidemia. 9. BPH. MEDICATIONS: 1. Tylenol 650 mg p.o. q.i.d. p.r.n. 2. Folic acid 400 mcg p.o. daily. 3. Furosemide 40 mg p.o. b.i.d. 4. Olmesartan 5 mg p.o. daily. 5. Potassium chloride 10 mEq p.o. daily. 6. Aspirin 81 mg p.o. daily. 7. Cholecalciferol 5000 units p.o. daily. 8. Cyanocobalamin 1000 mcg p.o. daily. 9. Ferrous gluconate 325 mg p.o. b.i.d. 10. Imodium 2 mg p.o. q. 4 hours p.r.n. 11. Omeprazole 40 mg p.o. daily. 12. Oxycodone 20 mg p.o. q. 4 hours p.r.n. 13. Pregabalin 150 mg p.o. t.i.d. 14. Amlodipine 5 mg p.o. daily. ALLERGIES: To CHICKEN, VANILLA, WEED EXTRACT, ATORVASTATIN, and GRAPES. FAMILY HISTORY: Father had a history of Parkinson's. Mother is alive at 99. SOCIAL HISTORY: No reported alcohol, tobacco, or drug use. The patient lives with his , who is is his healthcare proxy. REVIEW OF SYSTEMS: Constitutional: No fevers, no chills, no unintended weight loss. Cardiac: No chest pain. Positive for chronic lower extremity edema. Respiratory: No cough. No hemoptysis. No shortness of breath. GI: No nausea , or vomiting. Positive for soft stools. No abdominal pain. Tolerating oral intake well. : No gross hematuria or dysuria. The patient has a chronic indwelling Fischer. Neuro: Positive for weakness to bilateral lower extremities. Eyes: No visual complaints. ENT: No dysphagia. Musculoskeletal : No arthralgias or myalgias. Skin: No rashes or lesions. Psych: No depression or anxiety. PHYSICAL EXAMINATION GENERAL: Mr. Merino is lying in the bed, he is in no acute distress. VITAL SIGNS: Blood pressure 108/64, heart rate 90, temperature 99.1, respiratory rate 15, O2 saturation 98% on 3 L nasal cannula, and down on 94% on room air. LUNGS: The patient has rhonchi on the right side in the base. HEART: S1 and S2. No murmur, rub, or gallop and regular. ABDOMEN: Soft and nontender with bowel sounds present x4. EXTREMITIES: Positive for 1+ edema in the feet. NEUROLOGIC: He is alert. He is oriented x3. He moves his upper extremities well and has weakness in bilateral lower extremities. There is no fascial asymmetry or focal weakness. Extraocular movements are intact. SKIN: Is intact grossly. He does have what appears to be a healing blood blister to his left heel, no open areas there are drainage. DIAGNOSTIC STUDIES/LABORATORY DATA: Sodium 128, potassium 4.7, chloride 95, serum bicarbonate 25, BUN 79, creatinine 3.7, glucose 133, lactic acid 1.2, alk phos 123, CRP 95.45. WBC 9.6, hemoglobin 10.5, hematocrit 32, platelet count 198, ESR 83. Urine shows 3+ leuk esterase, 1+ bacteria. Tox screen is positive for opiates. Chest x-ray shows right-sided pneumonia. CT of the brain shows no acute abnormality. EKG shows sinus rhythm with heart rate of 80s and no overt evidence of ischemia. ASSESSMENT: Mr. Merino is a 71-year-old male with a past medical history of ependymoma, which was found when he was in his 20s with multiple surgeries and now chronic back pain and inability to ambulate as well as a chronic Fischer due to neurogenic bladder, hypertension, asthma, obstructive sleep apnea, and coronary artery disease, who presents to hospital today with concern for weakness and confusion. Our plans are for observation in the hospital for the followin. Weakness and confusion: I suspect that this secondary to pneumonia and dehydration. The patient has improved greatly since being in the emergency room and receiving IV fluids. His chest x-ray notes a pneumonia on the right and his lungs demonstrate rhonchi to ausculation as well. He also appears dehydrated with a low sodium and a slight increase in his BUN and creatinine. Our plans will be to treat with Levaquin. The patient has recent admission to the hospital back in January; however, he is not severely ill and I think Levaquin is an appropriate antibiotic based on the most recent guidelines for healthcare associated pneumonia and our pathogen profile here in the hospital. The patient is non-hypoxic and not requiring any oxygen. Blood cultures have been sent. 2. Anemia: The patient's hemoglobin and hematocrit are down slightly from his baseline. His stool occult blood is negative. He is on iron supplementation at home and folic acid as well as B12. I think, this is likely secondary to chronic illness and I do not see any overt evidence of bleeding. 3. Hyponatremia: Again, I think this is secondary to dehydration. Plan to replete with normal saline and recheck in the a.m. 4. [id number] kidney disease stage 3: Plan is to treat with intravenous fluids and recheck in the a.m. His home furosemide will be held. 5. Question urinary tract infection: The patient does have 3+ leuk esterase and 1+ bacteria; however, he has a chronic indwelling Fischer making it difficult to interpret these findings. Regardless, he is being started on Levaquin for a suspected pneumonia which should cover most urinary pathogens. Plan to monitor and adjust based on clinical course. 6. Hypertension: The patient's blood pressure is now 90s systolically. Plan to hold amlodipine, furosemide, olmesartan, and provide IV fluids. 7. Obstructive sleep apnea: The patient will have his home BiPAP. 8. Coronary artery disease: The patient will continue on aspirin. 9. Diarrhea: The patient reports having multiple soft stools at home. He does have Imodium available p.r.n. He has no nausea. No abdominal pain. He is tolerating oral intake well. I do not think any imaging is indicated at this point, but will be vigilant and monitor his diarrhea while he is inpatient. 10. Chronic back pain: Continue his oxycodone and Lyrica. 11. DVT prophylaxis with heparin subcutaneous. 12. Disposition to the telemetry floor for observation for pneumonia. TIME SPENT: Approximately 60 minutes was spent in the admission of this patient , more than half the time was spent with the patient at the bedside reviewing the events leading up to his hospitalization, performing the physical examination, and reviewing the plan of care. STEVE BARR NP [id number]/[facility] #: [id number] VALERI
--- NOTE | 2017-02-12 18:13 | ED ---
Arabella Fulton Rebecca, scribed for Jose Eduardo Floyd MD on 02/12/17 at 0949 . Altered Mental Status - HPI Summary HPI Summary: Pt is a 71 y/o M BIBA who presents to ED for concerns over AMS characterized as disorientation. reports she woke him up this morning at approximately 0700 because he is scheduled to have a lumbar spinal stimulator put in place in [place] today. Upon waking up he was disoriented and noted chills. states his sx have improved since onset. Denies cough and fever. reports that the only change in his routine is that he recently had Immodium per PCP orders. Has had a visitng nurse the last 4 weeks. PMHx ependymoma tumor. - History Of Current Complaint Chief Complaint: EDAltMentalStatus Stated Complaint: AMS/WEAKNESS Time Seen by Provider: 02/12/17 09:36 Hx Obtained From: Patient, Family/Wardrobe Specialist - Onset/Duration: Suddenly - 0700 this morning Timing: Constant Severity Initially: Moderate Severity Currently: Mild Character: Confusion Aggravating Factor(s): Nothing Alleviating Factor(s): Nothing Associated Signs And Symptoms: Negative: Fever - Allergies/Home Medications Allergies/Adverse Reactions: Allergies Allergy/AdvReac Type Severity Reaction Status Date / Time Chicken Allergy Allergy Severe Hives Verified 01/07/17 10:20 Vanilla Allergy Severe Hives Verified 01/07/17 10:20 Wheat Extract Allergy Severe Hives Verified 01/07/17 10:20 Atorvastatin [From Lipitor] Allergy See Comment Verified 01/07/17 10:20 GRAPES Allergy Severe Hives Uncoded 01/07/17 10:20 Home Medications: Home Medications Acetaminophen [Acetaminophen ER] 650 mg PO QID PRN 02/12/17 [History Confirmed 02/12/17] Cholecalciferol [Vitamin D3 Ultra Strength] 5,000 unit PO DAILY 02/12/17 [ History Confirmed 02/12/17] Cyanocobalamin TAB* [Vitamin B12 TAB*] 1,000 mcg PO DAILY 02/12/17 [History Confirmed 02/12/17] Ferrous Gluconate TAB* [Fergon TAB*] 324 mg PO BID 02/12/17 [History Confirmed 02/12/17] Folic Acid 400 mcg PO DAILY 02/12/17 [History Confirmed 02/12/17] Loperamide CAP* [Imodium CAP*] 2 mg PO Q4H PRN 02/12/17 [History Confirmed 02/12] Olmesartan (NF) [Benicar (NF)] 5 mg PO DAILY 02/12/17 [History Confirmed ] Omeprazole CAP* [Prilosec CAP* 20 MG] 40 mg PO DAILY 02/12/17 [History Confirmed 02/12/17] Potassium Chloride [Klor-Con Sprinkle] 10 meq PO DAILY 02/12/17 [History Confirmed 02/12/17] Pregabalin CAP(*) [Lyrica CAP(*)] 150 mg PO TID 02/12/17 [History Confirmed 01/22] PMH/Surg Hx/FS Hx/Imm Hx Endocrine/Hematology History: Denies: Hx Diabetes Cardiovascular History: Reports: Hx Hypercholesterolemia, Hx Hypertension Denies: Hx Pacemaker/ICD Respiratory History: Reports: Hx Sleep Apnea - new DX severe MATY 02/2013, Other Respiratory Problems/Disorders - LATENT TB GI History: Reports: Other GI Disorders - neurogenic bowel History: Reports: Hx Renal Disease, Other Problems/Disorders - neurogenic bladder Musculoskeletal History: Reports: Other Musculoskeletal History - chronic back pain Denies: Hx Rheumatoid Arthritis, Hx Osteoporosis Sensory History: Reports: Hx Contacts or Glasses, Hx Hearing Problem Denies: Hx Hearing Aid Opthamlomology History: Reports: Hx Contacts or Glasses Neurological History: Reports: Hx Spinal Cord Injury, Other Neuro Impairments/ Disorders - Ependymoma tumor w/ destruction of vertebrae Psychiatric History: Denies: Hx Panic Disorder - Cancer History Cancer Type, 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, BRAIN Hx Chemotherapy: No Hx Radiation Therapy: Yes - 1970 - Surgical History Surgery Procedure, Year, and Place: SPINAL SURGERY - 4 SURGERIES FROM [id number] (EPENDYMOMA), APPENDECTOMY 12/21 - Rt ENDARTERECTOMY 2014, TONSILLECTOMY ( as a child) Hx Anesthesia Reactions: No - Immunization History Date of Tetanus Vaccine: PT STATES UNSURE Infectious Disease History: Reports: Hx Hepatitis - as a child Denies: History Other Infectious Disease, Traveled Outside the [place] in Last 30 Days - Family History Known Family History: Positive: Other - NO GI ISSUES - Social History Alcohol Use: Weekly Alcohol Amount: one a week Substance Use Type: Reports: None Substance Use Comment - Amount & Last Used: tramadol Hx Tobacco Use: No Smoking Status (MU): Never Smoked Tobacco Have You Smoked in the Last Year: No Review of Systems Positive: Chills. Negative: Fever Negative: Cough Neurological: Other - AMS - disorientation/confusion All Other Systems Reviewed And Are Negative: Yes Physical Exam - Summary Physical Exam Summary: VITAL SIGNS: Reviewed. GENERAL: ~Patient is a well-developed and nourished male who is lying comfortable in the stretcher. ~Patient is not in any acute respiratory distress. HEAD AND FACE: No signs of trauma. ~No ecchymosis, hematomas or skull depressions. No sinus tenderness. EYES: PERRLA, EOMI x 2, No injected conjunctiva, no nystagmus. EARS: Hearing grossly intact. Ear canals and tympanic membranes are within normal limits. MOUTH: Oropharynx within normal limits. NECK: Supple, trachea is midline, no adenopathy, no JVD, no carotid bruit, no c- spine tenderness, neck with full ROM. CHEST: Symmetric, no tenderness at palpation LUNGS: Clear to auscultation bilaterally. No wheezing or crackles. CVS: Regular rate and rhythm, S1 and S2 present, no murmurs or gallops appreciated. ABDOMEN: Soft, non-tender. No signs of distention. No rebound no guarding, and no masses palpated. Bowel sounds are normal. Has an indwelling arriaga catheter. EXTREMITIES: FROM in all major joints, no edema, no cyanosis or clubbing. NEURO: Alert and oriented x 2. No acute neurological deficits. Speech is normal and follows commands. Paralysis frm the waist down. SKIN: Dry and warm GCS: 15 Triage Information Reviewed: Yes Vital Signs On Initial Exam: Initial Vitals Temp Pulse Resp BP Pulse Ox 99.9 F 97 20 102/48 90 02/12/17 09:09 02/12/17 09:09 02/12/17 09:09 02/12/17 09:09 02/12/17 09:09 Vital Signs Reviewed: Yes Diagnostics - Vital Signs Vital Signs Temp Pulse Resp BP Pulse Ox 02/12/17 09:09 99.9 F 97 20 102/48 90 - Laboratory Lab Results: Lab Results 02/12/17 02/12/17 02/12/17 Range/Units 09:30 09:30 09:30 WBC 9.6 (3.5-10.8) 10^3/ul RBC 3.88 L (4.0-5.4) 10^6/ul Hgb 10.5 L (14.0-18.0) g/dl Hct 32 L (42-52) % MCV 82 (80-94) fL MCH 27 (27-31) pg MCHC 33 (31-36) g/dl RDW 16 H (10.5-15) % Plt Count 198 (150-450) 10^3/ul MPV 9 (7.4-10.4) um3 Neut % (Auto) 83.1 H (38-83) % Lymph % (Auto) 3.9 L (25-47) % [place] % (Auto) 12.5 H (1-9) % Eos % (Auto) 0.2 (0-6) % Baso % (Auto) 0.3 (0-2) % Absolute Neuts (auto) 8.0 H (1.5-7.7) 10^3/ul Absolute Lymphs (auto) 0.4 L (1.0-4.8) 10^3/ul Absolute Monos (auto) 1.2 H (0-0.8) 10^3/ul Absolute Eos (auto) 0 (0-0.6) 10^3/ul Absolute Basos (auto) 0 (0-0.2) 10^3/ul Absolute Nucleated RBC 0.01 10^3/ul Nucleated RBC % 0.1 ESR 83 H (0-40) mm/Hr INR (Anticoag Therapy) 0.98 (0.89-1.11) APTT 26.9 (26.0-36.3) seconds Sodium 128 L (133-145) mmol/L Potassium 4.7 (3.5-5.0) mmol/L Chloride 95 L (101-111) mmol/L Carbon Dioxide 25 (22-32) mmol/L Anion Gap 8 (2-11) mmol/L BUN 79 H (6-24) mg/dL Creatinine 3.07 H (0.67-1.17) mg/dL Est GFR ( Amer) 26.0 (>60) Est GFR (Non-Af Amer) 20.2 (>60) BUN/Creatinine Ratio 25.7 H (8-20) Glucose 133 H (70-100) mg/dL Lactic Acid (0.5-2.0) mmol/L Calcium 9.4 (8.6-10.3) mg/dL Total Bilirubin 0.50 (0.2-1.0) mg/dL AST 25 (13-39) U/L ALT 18 (7-52) U/L Alkaline Phosphatase 123 H (34-104) U/L Total Creatine Kinase 19 (10-223) U/L Troponin I 0.03 (<0.04) ng/mL C-Reactive Protein 95.45 H (< 5.00) mg/L B-Natriuretic Peptide ( - 100) pg/mL Total Protein 5.9 L (6.4-8.9) g/dL Albumin 2.9 L (3.2-5.2) g/dL Globulin 3.0 (2-4) g/dL Albumin/Globulin Ratio 1.0 (1-3) Urine Color Urine Appearance Urine pH (5-9) Ur Specific [place] (1.010-1.030) Urine Protein (Negative) Urine Ketones (Negative) Urine Blood (Negative) Urine Nitrate (Negative) Urine Bilirubin (Negative) Urine Urobilinogen (Negative) Ur Leukocyte Esterase (Negative) Urine WBC (Auto) (Absent) Urine RBC (Auto) (Absent) Urine Bacteria (Absent) Urine Glucose (Negative) Urine Opiates Screen (None Detect) Ur Barbiturates Screen (None Detect) Ur Phencyclidine Scrn (None Detect) Ur Amphetamines Screen (None Detect) U Benzodiazepines Scrn (None Detect) Urine Cocaine Screen (None Detect) U Cannabinoids Screen (None Detect) 02/12/17 02/12/17 02/12/17 Range/Units 09:30 09:30 10:15 WBC (3.5-10.8) 10^3/ul RBC (4.0-5.4) 10^6/ul Hgb (14.0-18.0) g/dl Hct (42-52) % MCV (80-94) fL MCH (27-31) pg MCHC (31-36) g/dl RDW (10.5-15) % Plt Count (150-450) 10^3/ul MPV (7.4-10.4) um3 Neut % (Auto) (38-83) % Lymph % (Auto) (25-47) % [place] % (Auto) (1-9) % Eos % (Auto) (0-6) % Baso % (Auto) (0-2) % Absolute Neuts (auto) (1.5-7.7) 10^3/ul Absolute Lymphs (auto) (1.0-4.8) 10^3/ul Absolute Monos (auto) (0-0.8) 10^3/ul Absolute Eos (auto) (0-0.6) 10^3/ul Absolute Basos (auto) (0-0.2) 10^3/ul Absolute Nucleated RBC 10^3/ul Nucleated RBC % ESR (0-40) mm/Hr INR (Anticoag Therapy) (0.89-1.11) APTT (26.0-36.3) seconds Sodium (133-145) mmol/L Potassium (3.5-5.0) mmol/L Chloride (101-111) mmol/L Carbon Dioxide (22-32) mmol/L Anion Gap (2-11) mmol/L BUN (6-24) mg/dL Creatinine (0.67-1.17) mg/dL Est GFR ( Amer) (>60) Est GFR (Non-Af Amer) (>60) BUN/Creatinine Ratio (8-20) Glucose (70-100) mg/dL Lactic Acid 1.2 (0.5-2.0) mmol/L Calcium (8.6-10.3) mg/dL Total Bilirubin (0.2-1.0) mg/dL AST (13-39) U/L ALT (7-52) U/L Alkaline Phosphatase (34-104) U/L Total Creatine Kinase (10-223) U/L Troponin I (<0.04) ng/mL C-Reactive Protein (< 5.00) mg/L B-Natriuretic Peptide 30 ( - 100) pg/mL Total Protein (6.4-8.9) g/dL Albumin (3.2-5.2) g/dL Globulin (2-4) g/dL Albumin/Globulin Ratio (1-3) Urine Color Yellow Urine Appearance Cloudy Urine pH 5.0 (5-9) Ur Specific [place] 1.008 L (1.010-1.030) Urine Protein Negative (Negative) Urine Ketones Negative (Negative) Urine Blood 1+ H (Negative) Urine Nitrate Negative (Negative) Urine Bilirubin Negative (Negative) Urine Urobilinogen Negative (Negative) Ur Leukocyte Esterase 3+ H (Negative) Urine WBC (Auto) Trace(0-5/hpf) (Absent) Urine RBC (Auto) Absent (Absent) Urine Bacteria 1+ H (Absent) Urine Glucose Negative (Negative) Urine Opiates Screen (None Detect) Ur Barbiturates Screen (None Detect) Ur Phencyclidine Scrn (None Detect) Ur Amphetamines Screen (None Detect) U Benzodiazepines Scrn (None Detect) Urine Cocaine Screen (None Detect) U Cannabinoids Screen (None Detect) 02/12/17 Range/Units 10:15 WBC (3.5-10.8) 10^3/ul RBC (4.0-5.4) 10^6/ul Hgb (14.0-18.0) g/dl Hct (42-52) % MCV (80-94) fL MCH (27-31) pg MCHC (31-36) g/dl RDW (10.5-15) % Plt Count (150-450) 10^3/ul MPV (7.4-10.4) um3 Neut % (Auto) (38-83) % Lymph % (Auto) (25-47) % [place] % (Auto) (1-9) % Eos % (Auto) (0-6) % Baso % (Auto) (0-2) % Absolute Neuts (auto) (1.5-7.7) 10^3/ul Absolute Lymphs (auto) (1.0-4.8) 10^3/ul Absolute Monos (auto) (0-0.8) 10^3/ul Absolute Eos (auto) (0-0.6) 10^3/ul Absolute Basos (auto) (0-0.2) 10^3/ul Absolute Nucleated RBC 10^3/ul Nucleated RBC % ESR (0-40) mm/Hr INR (Anticoag Therapy) (0.89-1.11) APTT (26.0-36.3) seconds Sodium (133-145) mmol/L Potassium (3.5-5.0) mmol/L Chloride (101-111) mmol/L Carbon Dioxide (22-32) mmol/L Anion Gap (2-11) mmol/L BUN (6-24) mg/dL Creatinine (0.67-1.17) mg/dL Est GFR ( Amer) (>60) Est GFR (Non-Af Amer) (>60) BUN/Creatinine Ratio (8-20) Glucose (70-100) mg/dL Lactic Acid (0.5-2.0) mmol/L Calcium (8.6-10.3) mg/dL Total Bilirubin (0.2-1.0) mg/dL AST (13-39) U/L ALT (7-52) U/L Alkaline Phosphatase (34-104) U/L Total Creatine Kinase (10-223) U/L Troponin I (<0.04) ng/mL C-Reactive Protein (< 5.00) mg/L B-Natriuretic Peptide ( - 100) pg/mL Total Protein (6.4-8.9) g/dL Albumin (3.2-5.2) g/dL Globulin (2-4) g/dL Albumin/Globulin Ratio (1-3) Urine Color Urine Appearance Urine pH (5-9) Ur Specific [place] (1.010-1.030) Urine Protein (Negative) Urine Ketones (Negative) Urine Blood (Negative) Urine Nitrate (Negative) Urine Bilirubin (Negative) Urine Urobilinogen (Negative) Ur Leukocyte Esterase (Negative) Urine WBC (Auto) (Absent) Urine RBC (Auto) (Absent) Urine Bacteria (Absent) Urine Glucose (Negative) Urine Opiates Screen Presumptive positive H (None Detect) Ur Barbiturates Screen None detected (None Detect) Ur Phencyclidine Scrn None detected (None Detect) Ur Amphetamines Screen None detected (None Detect) U Benzodiazepines Scrn None detected (None Detect) Urine Cocaine Screen None detected (None Detect) U Cannabinoids Screen None detected (None Detect) Result Diagrams: 02/12/17 09:30 02/12/17 09:30 Lab Statement: Any lab studies that have been ordered have been reviewed, and results considered in the medical decision making process. - Radiology CXR Xray Interpretation: Positive (See Comments) - SUGGESTED OF OF RIGHT-SIDED PNEUMONIA. LEFT LUNG FIELD IS CLEAR. Radiology Interpretation Completed By: Radiologist - CT Brain CT CT Interpretation: No Acute Changes - NO ACUTE INTRACRANIAL PATHOLOGY CT Interpretation Completed By: Radiologist - EKG 1052 Cardiac Rate: NL - 83 bpm EKG Rhythm: Sinus Rhythm EKG Interpretation: Q waves in 3 and aVF, No ST elevation Altered Mental Statu Course/Dx - Course Assessment/Plan: Pt is a 71 y/o M BIBA who presents to ED for concerns over AMS characterized as disorientation. reports she woke him up this morning at approximately 0700 because he is scheduled to have a lumbar spinal stimulator put in place in [place] today. Upon waking up he was disoriented and noted chills. states his sx have improved since onset. Denies cough and fever. reports that the only change in his routine is that he recently had Immodium per PCP orders. Has had a visitng nurse the last 4 weeks. PMHx ependymoma tumor. Test results shows acute on chronic renal failure, hyponatremia of 128, CRP of 95.45. UA positive for UTI. CXR shows right lower lobe PNA. Head CT shows no acute intracranial pathology. In the ER course, the pt was started on 2 L of IV fluids and given Zosyn for the PNA and UTI. At this point, I disclosed the case with Dr. Luong who accepted pt for admission. At this point, the patient is hemodynamically stable and A&Ox3. - Diagnoses Differential Diagnosis/HQI/PQRI: Hypoglycemia, Hypoxia, Sepsis, Other - UTI, Pneumonia Discharge Diagnoses: UTI (urinary tract infection), Sepsis, PNA (pneumonia) - Provider Notifications Discussed Care Of Patient With: Nicanor Luong Time Discussed With Above Provider: 11:30 Instructed by Provider To: Other - Accepts pt for admission Discharge - Discharge Plan Condition: Stable Disposition: ADMITTED TO [facility] The documentation as recorded by the Arabella rodriguez Rebecca accurately reflects the service I personally performed and the decisions made by me, Jose Eduardo Floyd MD.
[2017-02-12] MEDS: Ferrous Gluconate TAB* 324 MG TAB PO SCH (22:05)
[2017-02-13] MEDS: NS 0.9% 1000 ML* 1,000 ML IV SCH (03:54)
[2017-02-13] MEDS: Heparin VIAL(*) 5000 UNITS/ML VIAL (FIVE THOUSAND) SUBCUT SCH ×3 (05:31→22:48)
[2017-02-13 05:39] LABS: Hematocrit 30 % (42-52); Hemoglobin 9.8 g/dl (14.0-18.0); Mean Corpuscular HGB Conc 33 g/dl (31-36); Mean Corpuscular Hemoglobin 27 pg (27-31); Mean Corpuscular Volume 83 fL (80-94); Mean Platelet Volume 9 um3 (7.4-10.4); Red Blood Count 3.61 10^6/ul (4.0-5.4); Red Cell Distribution Width 16 % (10.5-15); White Blood Count 10.8 10^3/ul (3.5-10.8)
[2017-02-13 05:40] LABS: Add Diff/Slide Review? Slide Review Added; Comments Flag Yes
[2017-02-13 05:53] LABS: Calcium 9.6 mg/dL (8.6-10.3); EGFR Non-African American 24.9 (>60); Potassium 4.7 mmol/L (3.5-5.0)
[2017-02-13] MEDS ORDERED: Levofloxacin 750 MG IVPREMIX(* 750 MG/150 ML BAG IVPB SCH (09:00)
[2017-02-13] MEDS ORDERED: amLODIPine TAB* 5 MG PO SCH (09:00)
[2017-02-13] MEDS: Cholecalciferol TAB* 1000 UNITS PO SCH (09:10)
[2017-02-13] MEDS: Ferrous Gluconate TAB* 324 MG TAB PO SCH ×2 (09:10→22:48)
[2017-02-13] MEDS: Omeprazole CAP* 20 MG PO SCH (09:11)
[2017-02-13] MEDS: Pregabalin CAP(*) 50 MG PO SCH ×3 (09:12→22:47)
[2017-02-13] MEDS: Cyanocobalamin TAB* 500 MCG PO SCH (09:13)
[2017-02-13] MEDS: Aspirin Low Dose CHEW TAB* 81 MG PO SCH (09:14)
[2017-02-13] MEDS: Potassium Chlor TAB* 10 MEQ TAB.ER PO SCH (09:14)
[2017-02-13] MEDS ORDERED: Loperamide CAP* 2 MG PO ONE (10:13)
--- NOTE | 2017-02-13 10:50 | PN ---
Subjective Date of Service: 02/13/17 Interval History: Mr. Merino is a patient with a PMH of ependymoma presented to the ED yesterday with concern for weakness and confusion. He reports loose to watery stools over the past 2 weeks; his states he has to change his Depends 3-5 times a day due to significant incontinence. She has given immodium once or twice with little effect. No accompanying fever, abd pain, n/v. In regards to the pt's weakness and confusion, his reports improvement this AM. Patient denies CP, SOB. He has had 2-3 episodes of loose stool this morning. No other complaints at this time. Family History: Unchanged from Admission Social History: Unchanged from Admission Past Medical History: Unchanged from Admission Objective Active Medications: Aspirin (Aspirin Low Dose Tab*) 81 mg PO DAILY [facility] Last Admin: 02/13/17 09:14 Dose: 81 mg Cholecalciferol (Vitamin D Tab*) 5,000 units PO DAILY [facility] Last Admin: 02/13/17 09:10 Dose: 5,000 units Cyanocobalamin (Vitamin B12 Tab*) 1,000 mcg PO DAILY [facility] Last Admin: 02/13/17 09:13 Dose: 1,000 mcg Ferrous Gluconate (Fergon Tab*) 324 mg PO BID [facility] Last Admin: 02/13/17 09:10 Dose: 324 mg Heparin Sodium (Porcine) (Heparin Vial(*)) 5,000 units SUBCUT Q8HR [facility] Last Admin: 02/13/17 05:31 Dose: 5,000 units Levofloxacin/Dextrose (Levaquin 750 Mg Ivpremix(*)) 750 mg in 150 mls @ 100 mls /hr IVPB Q48H [facility] Last Admin: 02/12/17 14:35 Dose: 100 mls/hr Lactated Ringer's (Lactated Ringers 1000 Ml Bag*) 1,000 mls @ 100 mls/hr IV ONCE ONE Stop: 02/13/17 20:36 Lactobacillus Rhamnosus (Culturelle*) 1 cap PO BID [facility] Loperamide HCl (Imodium Cap*) 2 mg PO Q4H PRN PRN Reason: DIARRHEA Omeprazole (Prilosec Cap*) 40 mg PO DAILY@0730 [facility] Last Admin: 02/13/17 09:11 Dose: 40 mg Oxycodone HCl (Roxycodone Tab*) 20 mg PO Q4H PRN PRN Reason: PAIN Last Admin: 02/12/17 15:48 Dose: 20 mg Potassium Chloride (Klor Con Er Tab*) 10 meq PO DAILY [facility] Last Admin: 02/13/17 09:14 Dose: 10 meq Pregabalin (Lyrica Cap(*)) 150 mg PO TID [facility] Last Admin: 02/13/17 09:12 Dose: 150 mg Vital Signs 02/12/17 02/12/17 02/12/17 13:31 14:33 15:21 Temperature 97.7 F 97.7 F Pulse Rate 89 114 Respiratory 16 16 16 Rate Blood Pressure 126/50 109/54 (mmHg) O2 Sat by Pulse 95 94 Oximetry 02/12/17 02/12/17 02/12/17 15:48 16:33 17:39 Temperature Pulse Rate Respiratory 16 16 Rate Blood Pressure (mmHg) O2 Sat by Pulse 94 Oximetry 02/12/17 02/12/17 02/12/17 17:48 19:12 20:00 Temperature 98.4 F Pulse Rate 91 Respiratory 18 16 Rate Blood Pressure 116/52 (mmHg) O2 Sat by Pulse 93 93 Oximetry 02/12/17 02/12/17 02/13/17 22:05 23:29 00:05 Temperature 98.8 F Pulse Rate 88 Respiratory 18 20 16 Rate Blood Pressure 132/52 (mmHg) O2 Sat by Pulse 93 Oximetry 02/13/17 02/13/17 04:31 09:12 Temperature Pulse Rate 81 Respiratory 20 18 Rate Blood Pressure 140/58 (mmHg) O2 Sat by Pulse 94 Oximetry Oxygen Devices in Use Now: None Appearance: Male patient, OOB to wheelchair, in NAD Eyes: No Scleral Icterus Ears/Nose/Mouth/Throat: Clear Oropharnyx, Mucous Membranes Moist Neck: NL Appearance and Movements; NL JVP Respiratory: Symmetrical Chest Expansion and Respiratory Effort, - - rhonchi in right base Cardiovascular: NL Sounds; No Murmurs; No JVD, RRR Abdominal: NL Sounds; No Tenderness; No Distention Extremities: - - +1 pedal edema Neurological: Alert and Oriented x 3, - - good upper extremity strength, patient can pull self across for transfer, BLE weakness Lines/Tubes/Other Access: Clean, Dry and Intact Peripheral IV Result Diagrams: 02/13/17 05:14 02/13/17 05:14 Additional Lab and Data: Lab Results 02/12/17 02/12/17 02/12/17 Range/Units 09:30 09:30 09:30 WBC 9.6 (3.5-10.8) 10^3/ul RBC 3.88 L (4.0-5.4) 10^6/ul Hgb 10.5 L (14.0-18.0) g/dl Hct 32 L (42-52) % MCV 82 (80-94) fL MCH 27 (27-31) pg MCHC 33 (31-36) g/dl RDW 16 H (10.5-15) % Plt Count 198 (150-450) 10^3/ul MPV 9 (7.4-10.4) um3 Neut % (Auto) 83.1 H (38-83) % Lymph % (Auto) 3.9 L (25-47) % Branch % (Auto) 12.5 H (1-9) % Eos % (Auto) 0.2 (0-6) % Baso % (Auto) 0.3 (0-2) % Absolute Neuts (auto) 8.0 H (1.5-7.7) 10^3/ul Absolute Lymphs (auto) 0.4 L (1.0-4.8) 10^3/ul Absolute Monos (auto) 1.2 H (0-0.8) 10^3/ul Absolute Eos (auto) 0 (0-0.6) 10^3/ul Absolute Basos (auto) 0 (0-0.2) 10^3/ul Absolute Nucleated RBC 0.01 10^3/ul Nucleated RBC % 0.1 ESR 83 H (0-40) mm/Hr INR (Anticoag Therapy) 0.98 (0.89-1.11) APTT 26.9 (26.0-36.3) seconds Sodium 128 L (133-145) mmol/L Potassium 4.7 (3.5-5.0) mmol/L Chloride 95 L (101-111) mmol/L Carbon Dioxide 25 (22-32) mmol/L Anion Gap 8 (2-11) mmol/L BUN 79 H (6-24) mg/dL Creatinine 3.07 H (0.67-1.17) mg/dL Est GFR ( Amer) 26.0 (>60) Est GFR (Non-Af Amer) 20.2 (>60) BUN/Creatinine Ratio 25.7 H (8-20) Glucose 133 H (70-100) mg/dL Lactic Acid (0.5-2.0) mmol/L Calcium 9.4 (8.6-10.3) mg/dL Total Bilirubin 0.50 (0.2-1.0) mg/dL AST 25 (13-39) U/L ALT 18 (7-52) U/L Alkaline Phosphatase 123 H (34-104) U/L Total Creatine Kinase 19 (10-223) U/L Troponin I 0.03 (<0.04) ng/mL C-Reactive Protein 95.45 H (< 5.00) mg/L B-Natriuretic Peptide ( - 100) pg/mL Total Protein 5.9 L (6.4-8.9) g/dL Albumin 2.9 L (3.2-5.2) g/dL Globulin 3.0 (2-4) g/dL Albumin/Globulin Ratio 1.0 (1-3) Urine Color Urine Appearance Urine pH (5-9) Ur Specific Dexter (1.010-1.030) Urine Protein (Negative) Urine Ketones (Negative) Urine Blood (Negative) Urine Nitrate (Negative) Urine Bilirubin (Negative) Urine Urobilinogen (Negative) Ur Leukocyte Esterase (Negative) Urine WBC (Auto) (Absent) Urine RBC (Auto) (Absent) Urine Bacteria (Absent) Urine Glucose (Negative) Urine Opiates Screen (None Detect) Ur Barbiturates Screen (None Detect) Ur Phencyclidine Scrn (None Detect) Ur Amphetamines Screen (None Detect) U Benzodiazepines Scrn (None Detect) Urine Cocaine Screen (None Detect) U Cannabinoids Screen (None Detect) 02/12/17 02/12/17 02/12/17 Range/Units 09:30 09:30 10:15 WBC (3.5-10.8) 10^3/ul RBC (4.0-5.4) 10^6/ul Hgb (14.0-18.0) g/dl Hct (42-52) % MCV (80-94) fL MCH (27-31) pg MCHC (31-36) g/dl RDW (10.5-15) % Plt Count (150-450) 10^3/ul MPV (7.4-10.4) um3 Neut % (Auto) (38-83) % Lymph % (Auto) (25-47) % Branch % (Auto) (1-9) % Eos % (Auto) (0-6) % Baso % (Auto) (0-2) % Absolute Neuts (auto) (1.5-7.7) 10^3/ul Absolute Lymphs (auto) (1.0-4.8) 10^3/ul Absolute Monos (auto) (0-0.8) 10^3/ul Absolute Eos (auto) (0-0.6) 10^3/ul Absolute Basos (auto) (0-0.2) 10^3/ul Absolute Nucleated RBC 10^3/ul Nucleated RBC % ESR (0-40) mm/Hr INR (Anticoag Therapy) (0.89-1.11) APTT (26.0-36.3) seconds Sodium (133-145) mmol/L Potassium (3.5-5.0) mmol/L Chloride (101-111) mmol/L Carbon Dioxide (22-32) mmol/L Anion Gap (2-11) mmol/L BUN (6-24) mg/dL Creatinine (0.67-1.17) mg/dL Est GFR ( Amer) (>60) Est GFR (Non-Af Amer) (>60) BUN/Creatinine Ratio (8-20) Glucose (70-100) mg/dL Lactic Acid 1.2 (0.5-2.0) mmol/L Calcium (8.6-10.3) mg/dL Total Bilirubin (0.2-1.0) mg/dL AST (13-39) U/L ALT (7-52) U/L Alkaline Phosphatase (34-104) U/L Total Creatine Kinase (10-223) U/L Troponin I (<0.04) ng/mL C-Reactive Protein (< 5.00) mg/L B-Natriuretic Peptide 30 ( - 100) pg/mL Total Protein (6.4-8.9) g/dL Albumin (3.2-5.2) g/dL Globulin (2-4) g/dL Albumin/Globulin Ratio (1-3) Urine Color Yellow Urine Appearance Cloudy Urine pH 5.0 (5-9) Ur Specific Dexter 1.008 L (1.010-1.030) Urine Protein Negative (Negative) Urine Ketones Negative (Negative) Urine Blood 1+ H (Negative) Urine Nitrate Negative (Negative) Urine Bilirubin Negative (Negative) Urine Urobilinogen Negative (Negative) Ur Leukocyte Esterase 3+ H (Negative) Urine WBC (Auto) Trace(0-5/hpf) (Absent) Urine RBC (Auto) Absent (Absent) Urine Bacteria 1+ H (Absent) Urine Glucose Negative (Negative) Urine Opiates Screen (None Detect) Ur Barbiturates Screen (None Detect) Ur Phencyclidine Scrn (None Detect) Ur Amphetamines Screen (None Detect) U Benzodiazepines Scrn (None Detect) Urine Cocaine Screen (None Detect) U Cannabinoids Screen (None Detect) 02/12/17 Range/Units 10:15 WBC (3.5-10.8) 10^3/ul RBC (4.0-5.4) 10^6/ul Hgb (14.0-18.0) g/dl Hct (42-52) % MCV (80-94) fL MCH (27-31) pg MCHC (31-36) g/dl RDW (10.5-15) % Plt Count (150-450) 10^3/ul MPV (7.4-10.4) um3 Neut % (Auto) (38-83) % Lymph % (Auto) (25-47) % Branch % (Auto) (1-9) % Eos % (Auto) (0-6) % Baso % (Auto) (0-2) % Absolute Neuts (auto) (1.5-7.7) 10^3/ul Absolute Lymphs (auto) (1.0-4.8) 10^3/ul Absolute Monos (auto) (0-0.8) 10^3/ul Absolute Eos (auto) (0-0.6) 10^3/ul Absolute Basos (auto) (0-0.2) 10^3/ul Absolute Nucleated RBC 10^3/ul Nucleated RBC % ESR (0-40) mm/Hr INR (Anticoag Therapy) (0.89-1.11) APTT (26.0-36.3) seconds Sodium (133-145) mmol/L Potassium (3.5-5.0) mmol/L Chloride (101-111) mmol/L Carbon Dioxide (22-32) mmol/L Anion Gap (2-11) mmol/L BUN (6-24) mg/dL Creatinine (0.67-1.17) mg/dL Est GFR ( Amer) (>60) Est GFR (Non-Af Amer) (>60) BUN/Creatinine Ratio (8-20) Glucose (70-100) mg/dL Lactic Acid (0.5-2.0) mmol/L Calcium (8.6-10.3) mg/dL Total Bilirubin (0.2-1.0) mg/dL AST (13-39) U/L ALT (7-52) U/L Alkaline Phosphatase (34-104) U/L Total Creatine Kinase (10-223) U/L Troponin I (<0.04) ng/mL C-Reactive Protein (< 5.00) mg/L B-Natriuretic Peptide ( - 100) pg/mL Total Protein (6.4-8.9) g/dL Albumin (3.2-5.2) g/dL Globulin (2-4) g/dL Albumin/Globulin Ratio (1-3) Urine Color Urine Appearance Urine pH (5-9) Ur Specific Dexter (1.010-1.030) Urine Protein (Negative) Urine Ketones (Negative) Urine Blood (Negative) Urine Nitrate (Negative) Urine Bilirubin (Negative) Urine Urobilinogen (Negative) Ur Leukocyte Esterase (Negative) Urine WBC (Auto) (Absent) Urine RBC (Auto) (Absent) Urine Bacteria (Absent) Urine Glucose (Negative) Urine Opiates Screen Presumptive positive H (None Detect) Ur Barbiturates Screen None detected (None Detect) Ur Phencyclidine Scrn None detected (None Detect) Ur Amphetamines Screen None detected (None Detect) U Benzodiazepines Scrn None detected (None Detect) Urine Cocaine Screen None detected (None Detect) U Cannabinoids Screen None detected (None Detect) Assess/Plan/Problems-Billing Assessment: Mr. 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 - Patient Problems (1) Community acquired pneumonia Code(s): J18.9 - PNEUMONIA, UNSPECIFIED ORGANISM Comment: Right sided pneumonia Afebrile, no supplemental O2 needs Continue levofloxacin (2) Altered mental status Code(s): R41.82 - ALTERED MENTAL STATUS, UNSPECIFIED Comment: With weakness Now improved Suspect secondary to new pna as well as dehydration from diarrhea Continue IV hydration Levofloxacin for treatment of CAP (3) Anemia Code(s): D64.9 - ANEMIA, UNSPECIFIED Comment: No s/s of bleeding HH stable, suspect mild drop secondary to dilution Stool occult negative Suspect anemia of chronic disease Continue iron supplementation, B12, folate Continue outpt follow-up (4) Hyponatremia Code(s): E87.1 - HYPO-OSMOLALITY AND HYPONATREMIA Comment: Improving Suspect secondary to volume depletion Continue IVF (5) Acute kidney injury Code(s): N17.9 - ACUTE KIDNEY FAILURE, UNSPECIFIED Comment: Improving Acute on chronic injury (pt with stage III CKD) Continue IVF Suspect secondary to hypovolemia (6) CKD (chronic kidney disease), stage III Code(s): N18.3 - CHRONIC KIDNEY DISEASE, STAGE 3 (MODERATE) Comment: Baseline creatinine 2.1 to 2.5 Avoid nephrotoxic medications (7) UTI (urinary tract infection) Status: Acute Comment: UA with positive leukocyte esterase Patient with chronic indwelling arriaga catheter Await urine cx Levofloxacin for CAP will cover urinary pathogens (8) HTN (hypertension) Code(s): I10 - ESSENTIAL (PRIMARY) HYPERTENSION Comment: Normotensive Resume furosemide, olmesartan, and amlodipine when BP allows (9) MATY (obstructive sleep apnea) Code(s): G47.33 - OBSTRUCTIVE SLEEP APNEA (ADULT) (PEDIATRIC) Comment: Continue home BiPAP use. (10) CAD (coronary artery disease) Code(s): I25.10 - ATHSCL HEART DISEASE OF [place] CORONARY ARTERY W/O ANG PCTRS Comment: Continue ASA. (11) Diarrhea Code(s): R19.7 - DIARRHEA, UNSPECIFIED Comment: Persistent diarrhea x 2-3 weeks No concurrent fever, abd pain, n/v Check legionella antigen, stool culture, ova and parasites Continue prn loperamide. (12) Chronic back pain Code(s): M54.9 - DORSALGIA, UNSPECIFIED; G89.29 - OTHER CHRONIC PAIN Comment: Secondary to ependymoma Continue oxycodone and pregabalin. (13) Ependymoma Code(s): C71.9 - MALIGNANT NEOPLASM OF BRAIN, UNSPECIFIED Comment: To the spine (dx in patient's 20s) With concurrent chronic back pain and inability to ambulate S/p multiple surgeries (14) DVT prophylaxis Comment: SQ heparin Status and Disposition: OBV admit. Dc to home when medically stable.
[2017-02-13] MEDS: oxyCODONE TAB* 5 MG TAB PO PRN ×2 (10:57→14:55)
[2017-02-13] MEDS: Lactobacillus Acidophilu (GG)* 1 CAP CAP PO SCH ×2 (11:40→22:47)
[2017-02-14] MEDS: Heparin VIAL(*) 5000 UNITS/ML VIAL (FIVE THOUSAND) SUBCUT SCH ×2 (05:37→12:50)
[2017-02-14] MEDS: Omeprazole CAP* 20 MG PO SCH (05:39)
[2017-02-14 06:59] LABS: Hematocrit 29 % (42-52); Hemoglobin 9.3 g/dl (14.0-18.0); Mean Corpuscular HGB Conc 32 g/dl (31-36); Mean Corpuscular Hemoglobin 26 pg (27-31); Mean Corpuscular Volume 82 fL (80-94); Mean Platelet Volume 8 um3 (7.4-10.4); Red Blood Count 3.54 10^6/ul (4.0-5.4); Red Cell Distribution Width 16 % (10.5-15); White Blood Count 7.9 10^3/ul (3.5-10.8)
[2017-02-14 07:20] LABS: BUN/Creatinine Ratio 27.5 (8-20); C Reactive Protein 185.28 mg/L (< 5.00); Calcium 10.2 mg/dL (8.6-10.3); EGFR African American 35.7 (>60); EGFR Non-African American 27.8 (>60); Potassium 4.8 mmol/L (3.5-5.0)
--- NOTE | 2017-02-14 08:57 | PN ---
Subjective Date of Service: 02/14/17 Interval History: Called to patient's bedside for report of AMS. Mr. Merino was reportedly at baseline mental status around 0800. Around 0820, patient noted to have pulled his IVs out and was trying to stand and ambulate. He was oriented x 0. Confusion appeared to resolve by the time I arrived, patient has no recollection of event, but is able to identify his and that he is in the hospital. His notes that the patient has had progressive confusion at home but this appeared different. No significant VS changes, but patient's did note that his pain medication is not the same as at home, where he takes around the clock Tylenol and oxycodone. Patient currently denies any complaints, including pain, but he is notably restless and continues to try to readjust himself in bed. Family History: Unchanged from Admission Social History: Unchanged from Admission Past Medical History: Unchanged from Admission Objective Active Medications: Aspirin (Aspirin Low Dose Tab*) 81 mg PO DAILY [facility] Last Admin: 02/13/17 09:14 Dose: 81 mg Cholecalciferol (Vitamin D Tab*) 5,000 units PO DAILY [facility] Last Admin: 02/13/17 09:10 Dose: 5,000 units Cyanocobalamin (Vitamin B12 Tab*) 1,000 mcg PO DAILY [facility] Last Admin: 02/13/17 09:13 Dose: 1,000 mcg Ferrous Gluconate (Fergon Tab*) 324 mg PO BID [facility] Last Admin: 02/13/17 22:48 Dose: 324 mg Heparin Sodium (Porcine) (Heparin Vial(*)) 5,000 units SUBCUT Q8HR [facility] Last Admin: 02/14/17 05:37 Dose: 5,000 units Levofloxacin/Dextrose (Levaquin 750 Mg Ivpremix(*)) 750 mg in 150 mls @ 100 mls /hr IVPB Q48H [facility] Last Admin: 02/12/17 14:35 Dose: 100 mls/hr Lactobacillus Rhamnosus (Culturelle*) 1 cap PO BID [facility] Last Admin: 02/13/17 22:47 Dose: 1 cap Loperamide HCl (Imodium Cap*) 2 mg PO Q4H PRN PRN Reason: DIARRHEA Omeprazole (Prilosec Cap*) 40 mg PO DAILY@0730 [facility] Last Admin: 02/14/17 05:39 Dose: 40 mg Potassium Chloride (Klor Con Er Tab*) 10 meq PO DAILY [facility] Last Admin: 02/13/17 09:14 Dose: 10 meq Pregabalin (Lyrica Cap(*)) 150 mg PO TID [facility] Last Admin: 02/13/17 22:47 Dose: 150 mg Vital Signs 02/13/17 02/13/17 02/13/17 14:55 14:56 15:23 Temperature 98.3 F Pulse Rate 92 Respiratory 16 16 25 Rate Blood Pressure 159/77 (mmHg) O2 Sat by Pulse 97 Oximetry 02/13/17 02/13/17 02/13/17 16:55 20:00 20:07 Temperature 98.8 F Pulse Rate 107 Respiratory 15 14 22 Rate Blood Pressure 119/65 (mmHg) O2 Sat by Pulse 97 93 Oximetry 02/13/17 02/13/17 02/14/17 22:47 23:14 04:14 Temperature 98.5 F Pulse Rate 76 76 Respiratory 12 15 17 Rate Blood Pressure 116/49 120/45 (mmHg) O2 Sat by Pulse 95 94 Oximetry 02/14/17 02/14/17 02/14/17 07:17 08:35 08:37 Temperature 97.5 F Pulse Rate 83 80 Respiratory 19 20 Rate Blood Pressure 122/47 126/56 (mmHg) O2 Sat by Pulse 95 95 93 Oximetry Oxygen Devices in Use Now: None Appearance: Older male patient, sitting up in bed, restless Eyes: No Scleral Icterus Ears/Nose/Mouth/Throat: Clear Oropharnyx, Mucous Membranes Moist Neck: NL Appearance and Movements; NL JVP Respiratory: Symmetrical Chest Expansion and Respiratory Effort, Clear to Auscultation Cardiovascular: NL Sounds; No Murmurs; No JVD, RRR Abdominal: NL Sounds; No Tenderness; No Distention Skin: - - left heel blister, weeping serous fluid Neurological: - - Alert, oriented to self, place, following commands Nutrition: Taking PO's Result Diagrams: 02/14/17 06:44 02/14/17 06:44 Additional Lab and Data: Lab Results 02/12/17 02/12/17 02/12/17 Range/Units 09:30 09:30 09:30 WBC 9.6 (3.5-10.8) 10^3/ul RBC 3.88 L (4.0-5.4) 10^6/ul Hgb 10.5 L (14.0-18.0) g/dl Hct 32 L (42-52) % MCV 82 (80-94) fL MCH 27 (27-31) pg MCHC 33 (31-36) g/dl RDW 16 H (10.5-15) % Plt Count 198 (150-450) 10^3/ul MPV 9 (7.4-10.4) um3 Neut % (Auto) 83.1 H (38-83) % Lymph % (Auto) 3.9 L (25-47) % [place] % (Auto) 12.5 H (1-9) % Eos % (Auto) 0.2 (0-6) % Baso % (Auto) 0.3 (0-2) % Absolute Neuts (auto) 8.0 H (1.5-7.7) 10^3/ul Absolute Lymphs (auto) 0.4 L (1.0-4.8) 10^3/ul Absolute Monos (auto) 1.2 H (0-0.8) 10^3/ul Absolute Eos (auto) 0 (0-0.6) 10^3/ul Absolute Basos (auto) 0 (0-0.2) 10^3/ul Absolute Nucleated RBC 0.01 10^3/ul Nucleated RBC % 0.1 ESR 83 H (0-40) mm/Hr INR (Anticoag Therapy) 0.98 (0.89-1.11) APTT 26.9 (26.0-36.3) seconds Sodium 128 L (133-145) mmol/L Potassium 4.7 (3.5-5.0) mmol/L Chloride 95 L (101-111) mmol/L Carbon Dioxide 25 (22-32) mmol/L Anion Gap 8 (2-11) mmol/L BUN 79 H (6-24) mg/dL Creatinine 3.07 H (0.67-1.17) mg/dL Est GFR ( Amer) 26.0 (>60) Est GFR (Non-Af Amer) 20.2 (>60) BUN/Creatinine Ratio 25.7 H (8-20) Glucose 133 H (70-100) mg/dL Lactic Acid (0.5-2.0) mmol/L Calcium 9.4 (8.6-10.3) mg/dL Total Bilirubin 0.50 (0.2-1.0) mg/dL AST 25 (13-39) U/L ALT 18 (7-52) U/L Alkaline Phosphatase 123 H (34-104) U/L Total Creatine Kinase 19 (10-223) U/L Troponin I 0.03 (<0.04) ng/mL C-Reactive Protein 95.45 H (< 5.00) mg/L B-Natriuretic Peptide ( - 100) pg/mL Total Protein 5.9 L (6.4-8.9) g/dL Albumin 2.9 L (3.2-5.2) g/dL Globulin 3.0 (2-4) g/dL Albumin/Globulin Ratio 1.0 (1-3) Urine Color Urine Appearance Urine pH (5-9) Ur Specific [place] (1.010-1.030) Urine Protein (Negative) Urine Ketones (Negative) Urine Blood (Negative) Urine Nitrate (Negative) Urine Bilirubin (Negative) Urine Urobilinogen (Negative) Ur Leukocyte Esterase (Negative) Urine WBC (Auto) (Absent) Urine RBC (Auto) (Absent) Urine Bacteria (Absent) Urine Glucose (Negative) Urine Opiates Screen (None Detect) Ur Barbiturates Screen (None Detect) Ur Phencyclidine Scrn (None Detect) Ur Amphetamines Screen (None Detect) U Benzodiazepines Scrn (None Detect) Urine Cocaine Screen (None Detect) U Cannabinoids Screen (None Detect) 02/12/17 02/12/17 02/12/17 Range/Units 09:30 09:30 10:15 WBC (3.5-10.8) 10^3/ul RBC (4.0-5.4) 10^6/ul Hgb (14.0-18.0) g/dl Hct (42-52) % MCV (80-94) fL MCH (27-31) pg MCHC (31-36) g/dl RDW (10.5-15) % Plt Count (150-450) 10^3/ul MPV (7.4-10.4) um3 Neut % (Auto) (38-83) % Lymph % (Auto) (25-47) % [place] % (Auto) (1-9) % Eos % (Auto) (0-6) % Baso % (Auto) (0-2) % Absolute Neuts (auto) (1.5-7.7) 10^3/ul Absolute Lymphs (auto) (1.0-4.8) 10^3/ul Absolute Monos (auto) (0-0.8) 10^3/ul Absolute Eos (auto) (0-0.6) 10^3/ul Absolute Basos (auto) (0-0.2) 10^3/ul Absolute Nucleated RBC 10^3/ul Nucleated RBC % ESR (0-40) mm/Hr INR (Anticoag Therapy) (0.89-1.11) APTT (26.0-36.3) seconds Sodium (133-145) mmol/L Potassium (3.5-5.0) mmol/L Chloride (101-111) mmol/L Carbon Dioxide (22-32) mmol/L Anion Gap (2-11) mmol/L BUN (6-24) mg/dL Creatinine (0.67-1.17) mg/dL Est GFR ( Amer) (>60) Est GFR (Non-Af Amer) (>60) BUN/Creatinine Ratio (8-20) Glucose (70-100) mg/dL Lactic Acid 1.2 (0.5-2.0) mmol/L Calcium (8.6-10.3) mg/dL Total Bilirubin (0.2-1.0) mg/dL AST (13-39) U/L ALT (7-52) U/L Alkaline Phosphatase (34-104) U/L Total Creatine Kinase (10-223) U/L Troponin I (<0.04) ng/mL C-Reactive Protein (< 5.00) mg/L B-Natriuretic Peptide 30 ( - 100) pg/mL Total Protein (6.4-8.9) g/dL Albumin (3.2-5.2) g/dL Globulin (2-4) g/dL Albumin/Globulin Ratio (1-3) Urine Color Yellow Urine Appearance Cloudy Urine pH 5.0 (5-9) Ur Specific [place] 1.008 L (1.010-1.030) Urine Protein Negative (Negative) Urine Ketones Negative (Negative) Urine Blood 1+ H (Negative) Urine Nitrate Negative (Negative) Urine Bilirubin Negative (Negative) Urine Urobilinogen Negative (Negative) Ur Leukocyte Esterase 3+ H (Negative) Urine WBC (Auto) Trace(0-5/hpf) (Absent) Urine RBC (Auto) Absent (Absent) Urine Bacteria 1+ H (Absent) Urine Glucose Negative (Negative) Urine Opiates Screen (None Detect) Ur Barbiturates Screen (None Detect) Ur Phencyclidine Scrn (None Detect) Ur Amphetamines Screen (None Detect) U Benzodiazepines Scrn (None Detect) Urine Cocaine Screen (None Detect) U Cannabinoids Screen (None Detect) 02/12/17 Range/Units 10:15 WBC (3.5-10.8) 10^3/ul RBC (4.0-5.4) 10^6/ul Hgb (14.0-18.0) g/dl Hct (42-52) % MCV (80-94) fL MCH (27-31) pg MCHC (31-36) g/dl RDW (10.5-15) % Plt Count (150-450) 10^3/ul MPV (7.4-10.4) um3 Neut % (Auto) (38-83) % Lymph % (Auto) (25-47) % [place] % (Auto) (1-9) % Eos % (Auto) (0-6) % Baso % (Auto) (0-2) % Absolute Neuts (auto) (1.5-7.7) 10^3/ul Absolute Lymphs (auto) (1.0-4.8) 10^3/ul Absolute Monos (auto) (0-0.8) 10^3/ul Absolute Eos (auto) (0-0.6) 10^3/ul Absolute Basos (auto) (0-0.2) 10^3/ul Absolute Nucleated RBC 10^3/ul Nucleated RBC % ESR (0-40) mm/Hr INR (Anticoag Therapy) (0.89-1.11) APTT (26.0-36.3) seconds Sodium (133-145) mmol/L Potassium (3.5-5.0) mmol/L Chloride (101-111) mmol/L Carbon Dioxide (22-32) mmol/L Anion Gap (2-11) mmol/L BUN (6-24) mg/dL Creatinine (0.67-1.17) mg/dL Est GFR ( Amer) (>60) Est GFR (Non-Af Amer) (>60) BUN/Creatinine Ratio (8-20) Glucose (70-100) mg/dL Lactic Acid (0.5-2.0) mmol/L Calcium (8.6-10.3) mg/dL Total Bilirubin (0.2-1.0) mg/dL AST (13-39) U/L ALT (7-52) U/L Alkaline Phosphatase (34-104) U/L Total Creatine Kinase (10-223) U/L Troponin I (<0.04) ng/mL C-Reactive Protein (< 5.00) mg/L B-Natriuretic Peptide ( - 100) pg/mL Total Protein (6.4-8.9) g/dL Albumin (3.2-5.2) g/dL Globulin (2-4) g/dL Albumin/Globulin Ratio (1-3) Urine Color Urine Appearance Urine pH (5-9) Ur Specific [place] (1.010-1.030) Urine Protein (Negative) Urine Ketones (Negative) Urine Blood (Negative) Urine Nitrate (Negative) Urine Bilirubin (Negative) Urine Urobilinogen (Negative) Ur Leukocyte Esterase (Negative) Urine WBC (Auto) (Absent) Urine RBC (Auto) (Absent) Urine Bacteria (Absent) Urine Glucose (Negative) Urine Opiates Screen Presumptive positive H (None Detect) Ur Barbiturates Screen None detected (None Detect) Ur Phencyclidine Scrn None detected (None Detect) Ur Amphetamines Screen None detected (None Detect) U Benzodiazepines Scrn None detected (None Detect) Urine Cocaine Screen None detected (None Detect) U Cannabinoids Screen None detected (None Detect) Assess/Plan/Problems-Billing Assessment: Mr. 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 - Patient Problems (1) Community acquired pneumonia Code(s): J18.9 - PNEUMONIA, UNSPECIFIED ORGANISM Comment: Right sided pneumonia Afebrile, no supplemental O2 needs Continue levofloxacin (2) Altered mental status Code(s): R41.82 - ALTERED MENTAL STATUS, UNSPECIFIED Comment: Recurrence of AMS Suspect secondary to pain Check CT brain, neuro checks Continue supportive care Levofloxacin for treatment of CAP (3) Anemia Code(s): D64.9 - ANEMIA, UNSPECIFIED Comment: No s/s of bleeding HH stable, suspect mild drop secondary to dilution Stool occult negative Suspect anemia of chronic disease Continue iron supplementation, B12, folate Continue outpt follow-up (4) Hyponatremia Code(s): E87.1 - HYPO-OSMOLALITY AND HYPONATREMIA Comment: Resolved Suspect secondary to volume depletion (5) Acute kidney injury Code(s): N17.9 - ACUTE KIDNEY FAILURE, UNSPECIFIED Comment: Resolved Acute on chronic injury (pt with stage III CKD) Suspect secondary to hypovolemia (6) CKD (chronic kidney disease), stage III Code(s): N18.3 - CHRONIC KIDNEY DISEASE, STAGE 3 (MODERATE) Comment: Creatinine within baseline Baseline creatinine 2.1 to 2.5 Avoid nephrotoxic medications (7) UTI (urinary tract infection) Status: Acute Comment: UA with positive leukocyte esterase Patient with chronic indwelling arriaga catheter Await urine cx Levofloxacin for CAP will cover urinary pathogens (8) HTN (hypertension) Code(s): I10 - ESSENTIAL (PRIMARY) HYPERTENSION Comment: Normotensive Resume furosemide, olmesartan, and amlodipine when BP allows (9) MATY (obstructive sleep apnea) Code(s): G47.33 - OBSTRUCTIVE SLEEP APNEA (ADULT) (PEDIATRIC) Comment: Continue home BiPAP use. (10) CAD (coronary artery disease) Code(s): I25.10 - ATHSCL HEART DISEASE OF [place] CORONARY ARTERY W/O ANG PCTRS Comment: Continue ASA. (11) Diarrhea Code(s): R19.7 - DIARRHEA, UNSPECIFIED Comment: Persistent diarrhea x 2-3 weeks No concurrent fever, abd pain, n/v Legionella antigen negative Stool culture, ova and parasites pending Continue prn loperamide. (12) Chronic back pain Code(s): M54.9 - DORSALGIA, UNSPECIFIED; G89.29 - OTHER CHRONIC PAIN Comment: Secondary to ependymoma Continue oxycodone and pregabalin. Patient takes standing acetaminophen and oxycodone q4h at home. (13) Ependymoma Code(s): C71.9 - MALIGNANT NEOPLASM OF BRAIN, UNSPECIFIED Comment: To the spine (dx in patient's 20s) With concurrent chronic back pain and inability to ambulate S/p multiple surgeries (14) DVT prophylaxis Comment: SQ heparin Status and Disposition: Inpatient admit. Dc to home when medically stable.
[2017-02-14] MEDS: Cyanocobalamin TAB* 500 MCG PO SCH (10:09)
[2017-02-14] MEDS: Ferrous Gluconate TAB* 324 MG TAB PO SCH (10:10)
[2017-02-14] MEDS: Potassium Chlor TAB* 10 MEQ TAB.ER PO SCH (10:10)
[2017-02-14] MEDS: Cholecalciferol TAB* 1000 UNITS PO SCH (10:10)
[2017-02-14] MEDS: Pregabalin CAP(*) 50 MG PO SCH (10:10)
[2017-02-14] MEDS: oxyCODONE TAB* 5 MG TAB PO SCH ×3 (10:11→18:19)
[2017-02-14] MEDS: Acetaminophen TAB* 325 MG PO SCH ×3 (10:12→18:19)
[2017-02-14] MEDS: Aspirin Low Dose CHEW TAB* 81 MG PO SCH (10:12)
--- NOTE | 2017-02-14 12:17 | RAD ---
HISTORY: Altered mental status COMPARISONS: February 22, 2017 TECHNIQUE: Multiple contiguous axial CT scans were obtained of the head without intravenous contrast. FINDINGS: HEMORRHAGE/INFARCT: There is no hemorrhage or acute infarct. MASSES/SHIFT: There is no mass or shift. EXTRA-AXIAL SPACES: There are no extra-axial fluid collections. SULCI AND VENTRICLES: The sulci and ventricles are normal in size and position for the patient's stated age. CEREBRUM: There are no focal parenchymal abnormalities. BRAINSTEM: There are no focal parenchymal abnormalities. CEREBELLUM: There are no focal parenchymal abnormalities. VESSELS: The vessels are grossly normal. PARANASAL SINUSES: The paranasal sinuses are clear. ORBITS: The orbits are unremarkable. BONES AND SOFT TISSUE: No bone or soft tissue abnormalities are noted. OTHER: None IMPRESSION: NO ACUTE INTRACRANIAL PATHOLOGY.
[2017-02-14] MEDS: Lactobacillus Acidophilu (GG)* 1 CAP CAP PO SCH (12:51)
[2017-02-14] MEDS: Levofloxacin 750 MG IVPREMIX(* 750 MG/150 ML BAG IVPB SCH ×2 (12:53→13:29)
[2017-02-14 16:41] VITALS: BP 124/47
[2017-02-14] MEDS ORDERED: ceFUROXime TAB(*) 250 MG PO ONE (17:04)
--- NOTE | 2017-02-15 00:52 | DS ---
CC: Dr. Griffiths * DISCHARGE SUMMARY: DATE OF ADMISSION: 02/12/17 DATE OF DISCHARGE: 02/14/17 PROVIDER: Nat Robert NP. ATTENDING PHYSICIAN: Alma Alexandra MD * (dictated by Nat Robert NP). PRIMARY CARE PROVIDER: Dr. Griffiths. PRIMARY DISCHARGE DIAGNOSES: 1. Right-sided pneumonia. 2. Weakness and confusion. 3. Acute on chronic kidney injury. SECONDARY DISCHARGE DIAGNOSES: 1. Ependymoma to the spine with chronic pain and inability to ambulate. 2. Neurogenic bladder with chronic Arriaga. 3. Hypertension. 4. Gastroesophageal reflux disease. 5. Asthma. 6. Obstructive sleep apnea with BiPAP. 7. Coronary artery disease. 8. Hyperlipidemia. 9. Benign prostatic hypertrophy. 10. Chronic kidney disease. HOME MEDICATIONS AT DISCHARGE: 1. Loperamide 2 mg q. 4 hours p.r.n. 2. Vitamin B12 of 1000 mcg daily. 3. Aspirin 81 mg daily. 4. Potassium 10 mEq daily. 5. Cholecalciferol 5000 units daily. 6. Folic acid 400 mcg daily. 7. Ferrous gluconate 324 mg b.i.d. 8. Omeprazole 40 mg daily. 9. Amlodipine 5 mg daily. 10. Olmesartan 5 mg daily. 11. Pregabalin 150 mg t.i.d. 12. Oxycodone 20 mg q.4 hours around the clock. 13. Acetaminophen 650 mg q.4 hours around the clock. NEW MEDICATIONS AT DISCHARGE: Levofloxacin 750 mg q.48 hours x1 additional dose. Note: The patient was previously on furosemide 40 mg b.i.d., which has been held. At his discharge, the patient is to review resumption of this medication when he follows up with his PCP, given that he has diarrhea and has had reduced p.o. intake. The patient has been normotensive here in the hospital, and there was concern for further dehydration with the furosemide. HOSPITAL COURSE OF STAY: For full details, please refer to the H and P provided by Elisa Barr on 02/12/17. In summary, Mr. Merino is a gentleman with a past medical history, as previously stated, who has had increasing back pain and, over the past 3 weeks, also been having diarrhea. Prior to admission, the patient's noted that he was confused and very weak. In the emergency room , the patient was given 2 L of fluids, and it was noted his mentation improved. He had a negative stool occult; however, his CRP and ESR were elevated and he had a low sodium at 128. The patient also had increase in renal function from his baseline and, hence, the patient was admitted with concern for weakness and confusion secondary to pneumonia and dehydration. The patient was started on Levaquin, which has been renally dosed for q.48 hours. He has been non-hypoxic on room air and not requiring any oxygen. He has been afebrile. No leukocytosis has been noted. Here in the hospital, patient had some recurrent episodes of diarrhea. We did send for some stool studies which included a stool culture with no growth thus far. It was negative for cryptosporidium and Giardia as well as ova and parasites. We also checked the Legionella and S-pneumoniae antigen from the urine which were both negative. The patient has no abdominal pain, no associated nausea, vomiting and, again, no fever or leukocytosis. It seems to be persistent diarrhea with an unclear etiology. The patient has been given Imodium, which has decreased the frequency and severity of the diarrhea, and the patient has started a probiotic. The patient's presentation is not consistent with a Clostridium difficile infection. The patient is nontoxic appearing. On the morning of 02/14/17, patient was noted to be alert and oriented. Then a few minutes later, nurse came back in room and noted that the patient had pulled out his IVs and was markedly disoriented. This lasted for a few minutes , and the patient was able to be reoriented and returned back to his baseline state with no recollection of the incident. CT of the brain was negative following this event and further neurological checks over the course of the day have been negative as well. The patient has remained within his baseline. The patient's states that he does have periods of confusion like this at home and he does not typically like tubes such as IVs and Arriaga catheters and frequently picks at these on a regular basis. Initially the plan was to keep the patient overnight until 02/15/17; however, his did request for him to come home. She feels that the episode this morning is consistent with his previous episodes at home and, with the negative CT of the brain and no further episodes over the course of the day, she feels safe bringing him home. She feels like he will recover better there, as opposed to a continued stay here in the hospital. In regards to pneumonia, patient will be continued on Levaquin to complete a 5- day course. Prescription was sent to the patient's pharmacy. In terms of patient's anemia, he has a mildly decreased H and H which may be reflective of some dilutional anemia here in the hospital secondary to fluids, but they are roughly within patient's baseline. Again, he has a negative stool occult, this appears to be anemia of chronic disease. The patient is already on iron supplementation as well as vitamin B12 and Arriaga which he should continue. The patient's hyponatremia has resolved. This is likely secondary to dehydration. The patient's creatinine has returned to baseline. There was a question of UTI given positive leukocyte esterase and bacteria in his UA; the patient's urine culture showed few (1 to 10,000) colony count of citrobacter, which likely represents a colonization, given the patient's chronic arriaga and previous UTI with the same bacteria. Sensitivities shows intermediate susceptibility with levofloxacin. However, in weighing out the clinical significance of this finding with the patient's diarrhea, further antibiotic treatment for the urine culture has been held at this time. Also, the patient's feels that the patient's diarrhea may have coincided with discharge from his last hospital admission in January, where the patient received antibiotics and subsequently has had persistent diarrhea since then. In regards to patient's hypertension, he has been normotensive and slightly hypotensive here. We have held his home antihypertensives since his blood pressure started to drift back up to normal. Patient's was advised to check his blood pressures at home and to call the PCP if concern for low blood pressure. Again, we have held his furosemide, given his recent dehydration and low p.o. intake as well as diarrhea. CONCERNS AT DISCHARGE: Mr. Merino will be discharged home under the care of his . He is to follow up with his PCP within next 5 to 7 days. Patient should continue his home Levaquin dosing until completion. DIET: May resume previous diet. ACTIVITY: As tolerated. CONDITION: Improved, stable. DISPOSITION: To home. TIME SPENT: Time spent on this discharge was approximately 45 minutes. Again, this is only a brief summary of the patient's hospital course of stay. For full details, please refer to the full medical record. If you have any further questions or need further assistance, please feel free to contact me at . NAT ROBERT NP [id number]/CPS #: [id number] VALERI
== END 2017-02-14 18:25 | disposition home health service (06) | DRG 194 ==
LOC: ED 08:46 → MEDTELE 12:19 → MED 02-13 11:55 → OBSVTOIN 02-13 14:00
PROVIDERS: ADMIT Internal Medicine; ATTEND Internal Medicine
DX: J18.9 Pneumonia, unspecified organism (principal); K59.2 Neurogenic bowel, not elsewhere classified; N17.9 Acute kidney failure, unspecified; I95.9 Hypotension, unspecified; C41.2 Malignant neoplasm of vertebral column; E87.1 Hypo-osmolality and hyponatremia; N18.3 Chronic kidney disease, stage 3 (moderate); D63.8 Anemia in other chronic diseases classified elsewhere; E78.00 Pure hypercholesterolemia, unspecified; G47.33 Obstructive sleep apnea (adult) (pediatric); N31.9 Neuromuscular dysfunction of bladder, unspecified; G89.29 Other chronic pain; M54.9 Dorsalgia, unspecified; H91.90 Unspecified hearing loss, unspecified ear; I25.10 Atherosclerotic heart disease of native coronary artery without angina pectoris; J45.909 Unspecified asthma, uncomplicated; E78.5 Hyperlipidemia, unspecified; N40.0 Benign prostatic hyperplasia without lower urinary tract symptoms; K21.9 Gastro-esophageal reflux disease without esophagitis; E86.0 Dehydration; I12.9 Hypertensive chronic kidney disease with stage 1 through stage 4 chronic kidney disease, or unspecified chronic kidney disease; R19.7 Diarrhea, unspecified; Z79.82 Long term (current) use of aspirin; Z88.8 Allergy status to other drugs, medicaments and biological substances; Z91.018 Allergy to other foods; Z92.3 Personal history of irradiation; Z72.89 Other problems related to lifestyle; Z99.3 Dependence on wheelchair
CPT/HCPCS: 36415; 70450; 71010; 80048; 80053; 80307; 81003; 81015; 82270; 82550; 83605; 83880; 84484; 85025; 85610; 85652; 85730; 86140; 87040; 87045; 87046; 87077; 87086; 87177; 87186; 87209; 87328; 87329; 87899; 93005; 94760; A9270-GY; G0378; J1644; J2543

== ENCOUNTER 2017-03-09 20:43 | Inpatient (IN) | payer MEDICARE ==
[2017-03-09] MEDS ORDERED: NS 0.9% 1000 ML*IV.FLUID IV ONE (21:08)
--- NOTE | 2017-03-09 21:43 | RAD ---
Indication: Fever, sepsis. Single frontal view of the chest performed at 2118 hours was reviewed. Comparison is made with previous exam dated February 12, 2017. No mediastinal shift is noted. There is cardiomegaly noted. Lung swift appear clear. IMPRESSION: CARDIOMEGALY. NO DEFINITE PNEUMONIA IS IDENTIFIED.
[2017-03-09 21:48] LABS: Hematocrit 29 % (42-52); Hemoglobin 9.6 g/dl (14.0-18.0); Mean Corpuscular HGB Conc 33 g/dl (31-36); Mean Corpuscular Hemoglobin 26 pg (27-31); Mean Corpuscular Volume 79 fL (80-94); Mean Platelet Volume 7 um3 (7.4-10.4); Red Blood Count 3.72 10^6/ul (4.0-5.4); Red Cell Distribution Width 16 % (10.5-15)
[2017-03-09 21:52] LABS: Add Diff/Slide Review? Manual Diff Added; Comments Flag Yes
[2017-03-09 21:59] LABS: Albumin 3.1 g/dL (3.2-5.2); BUN/Creatinine Ratio 23.7 (8-20); C Reactive Protein 285.1 mg/L (< 5.00); EGFR Non-African American 38.1 (>60); Globulin 3.4 g/dL (2-4); Potassium 4.2 mmol/L (3.5-5.0); Total Bilirubin 0.6 mg/dL (0.2-1.0); Total Protein 6.5 g/dL (6.4-8.9)
[2017-03-09 22:01] LABS: Troponin I 0.01 ng/mL (<0.04)
[2017-03-09 22:29] LABS: Add Path Review? YES; Eosinophils % 2 % (0-6)
[2017-03-09 22:37] LABS: Immature Granulocytes 1 % (0-9); Microcytosis 1+; Neutrophil % 79 % (38-83)
[2017-03-09 22:42] LABS: Urine Bacteria 1+ (Absent); Urine Bilirubin Negative (Negative); Urine Glucose Negative (Negative); Urine Nitrite Negative (Negative)
--- NOTE | 2017-03-09 23:04 | ED ---
Brionna Fulton Alfonso, scribed for Jax Stroud MD on 03/09/17 at 2110 . Complex/Multi-Sys Presentation - HPI Summary HPI Summary: This patient is a 71 year old M [facility]IBA to [facility] accompanied by for AMS since this morning. Per , he was completely unresponsive between 1200 and 1900 and barely made sense. The patient rates the pain 0/10 in severity. Symptoms alleviated by removing fentanyl patch. reports fever, intermittent unresponsiveness, and bed sores. Pt started on fentanyl patches one week ago. - History Of Current Complaint Chief Complaint: EDGeneral Time Seen by Provider: 03/09/17 20:52 Hx Obtained From: Patient, Family/Lens Marker Onset/Duration: Sudden Onset, Lasting Hours, Still Present Timing: Constant Severity Currently: Moderate Severity Initially: Mild Alleviating Factor(s): removing fentanyl patch Associated Signs And Symptoms: Positive: Other - fever, intermittent unresponsiveness, and bed sores Related History: Recent Hospitalization - Allergies/Home Medications Allergies/Adverse Reactions: Allergies Allergy/AdvReac Type Severity Reaction Status Date / Time Atorvastatin [From Lipitor] Allergy See Comment Verified 02/28/17 14:18 PMH/Surg Hx/FS Hx/Imm Hx Endocrine/Hematology History: Denies: Hx Diabetes Cardiovascular History: Reports: Hx Hypercholesterolemia, Hx Hypertension Denies: Hx Pacemaker/ICD Respiratory History: Reports: Hx Sleep Apnea - new DX severe MATY 02/2013, Other Respiratory Problems/Disorders - LATENT TB GI History: Reports: Hx Gastroesophageal Reflux Disease, Other GI Disorders - neurogenic bowel History: Reports: Hx Renal Disease, Other Problems/Disorders - neurogenic bladder Musculoskeletal History: Reports: Hx Back Problems, Other Musculoskeletal History - chronic back pain Denies: Hx Rheumatoid Arthritis, Hx Osteoporosis Sensory History: Reports: Hx Contacts or Glasses, Hx Hearing Problem, Other Sensory Impairments - color blind Denies: Hx Hearing Aid Opthamlomology History: Reports: Hx Contacts or Glasses, Other Sensory Impairments - color blind Neurological History: Reports: Hx Spinal Cord Injury, Other Neuro Impairments/ Disorders - Ependymoma tumor w/ destruction of vertebrae Psychiatric History: Denies: Hx Panic Disorder - Cancer History Cancer Type, 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, BRAIN Hx Chemotherapy: No Hx Radiation Therapy: Yes - 1970 - Surgical History Surgery Procedure, Year, and Place: SPINAL SURGERY - 4 SURGERIES FROM [id number] (EPENDYMOMA), APPENDECTOMY 12/21 - Rt ENDARTERECTOMY 2015, TONSILLECTOMY ( as a child) Hx Anesthesia Reactions: No - Immunization History Date of Tetanus Vaccine: PT STATES UNSURE Infectious Disease History: No Infectious Disease History: Reports: Hx Hepatitis - as a child Denies: Hx of Known/Suspected MRSA, History Other Infectious Disease, Traveled Outside the [place] in Last 30 Days - Family History Known Family History: Positive: Other - NO GI ISSUES - Social History Alcohol Use: None Alcohol Amount: one a week Substance Use Type: Reports: Prescribed Substance Use Comment - Amount & Last Used: tramadol Hx Tobacco Use: No Smoking Status (MU): Unknown if Ever Smoked Have You Smoked in the Last Year: No Review of Systems Positive: Fever Positive: Other - bed sores Neurological: Other - AMS, intermittent unresponsiveness All Other Systems Reviewed And Are Negative: Yes Physical Exam Triage Information Reviewed: Yes Vital Signs On Initial Exam: Initial Vitals Temp 101.5 F 03/09/17 20:47 Vital Signs Reviewed: Yes Appearance: Positive: Well-Appearing, No Pain Distress Skin: Positive: Warm, Skin Color Reflects Adequate Perfusion, Dry, Other - Extensive sacral decubitus ulcer Head/Face: Positive: Normal Head/Face Inspection Eyes: Positive: Normal ENT: Positive: Normal ENT inspection Neck: Positive: Supple, Nontender Respiratory/Lung Sounds: Positive: Clear to Auscultation, Breath Sounds Present Cardiovascular: Positive: RRR Abdomen Description: Positive: Nontender, Soft Bowel Sounds: Positive: Present Musculoskeletal: Positive: Normal Neurological: Positive: Normal, Alert, Oriented to Person Place, Time, CN Intact II-III Psychiatric: Positive: Affect/Mood Appropriate Diagnostics - Vital Signs Vital Signs Temp Pulse Resp BP Pulse Ox 03/09/17 20:55 102.1 F 106 21 103/40 93 03/09/17 20:47 101.5 F - Laboratory Lab Results: Lab Results 03/09/17 03/09/17 03/09/17 Range/Units 21:35 21:35 21:35 WBC 16.0 H (3.5-10.8) 10^3/ul RBC 3.72 L (4.0-5.4) 10^6/ul Hgb 9.6 L (14.0-18.0) g/dl Hct 29 L (42-52) % MCV 79 L (80-94) fL MCH 26 L (27-31) pg MCHC 33 (31-36) g/dl RDW 16 H (10.5-15) % Plt Count 437 (150-450) 10^3/ul MPV 7 L (7.4-10.4) um3 Immature Gran % (Auto) 1 (0-9) % Absolute Neuts (auto) 12.3 H (1.5-7.7) 10^3/ul Absolute Lymphs (auto) 1.3 (1.0-4.8) 10^3/ul Absolute Monos (auto) 2.1 H (0-0.8) 10^3/ul Absolute Eos (auto) 0.2 (0-0.6) 10^3/ul Absolute Basos (auto) 0.1 (0-0.2) 10^3/ul Absolute Nucleated RBC 0 10^3/ul Neutrophils % 79 (38-83) % Band Neutrophils % 1 (0-8) % Lymphocytes % 7 L (25-47) % Monocytes % 11 (0-13) % Eosinophils % 2 (0-6) % Metamyelocytes % Not Reportable Normal RBC Morphology Not Reportable Microcytosis 1+ Hem Pathologist Commnt Pending INR (Anticoag Therapy) 1.05 (0.89-1.11) Sodium 133 (133-145) mmol/L Potassium 4.2 (3.5-5.0) mmol/L Chloride 97 L (101-111) mmol/L Carbon Dioxide 29 (22-32) mmol/L Anion Gap 7 (2-11) mmol/L BUN 42 H (6-24) mg/dL Creatinine 1.77 H (0.67-1.17) mg/dL Est GFR ( Amer) 49.0 (>60) Est GFR (Non-Af Amer) 38.1 (>60) BUN/Creatinine Ratio 23.7 H (8-20) Glucose 125 H (70-100) mg/dL Lactic Acid (0.5-2.0) mmol/L Calcium 10.0 (8.6-10.3) mg/dL Total Bilirubin 0.60 (0.2-1.0) mg/dL AST 12 L (13-39) U/L ALT 9 (7-52) U/L Alkaline Phosphatase 190 H (34-104) U/L Troponin I 0.01 (<0.04) ng/mL C-Reactive Protein 285.10 H (< 5.00) mg/L Total Protein 6.5 (6.4-8.9) g/dL Albumin 3.1 L (3.2-5.2) g/dL Globulin 3.4 (2-4) g/dL Albumin/Globulin Ratio 0.9 L (1-3) Urine Color Urine Appearance Urine pH (5-9) Ur Specific Barker (1.010-1.030) Urine Protein (Negative) Urine Ketones (Negative) Urine Blood (Negative) Urine Nitrate (Negative) Urine Bilirubin (Negative) Urine Urobilinogen (Negative) Ur Leukocyte Esterase (Negative) Urine WBC (Auto) (Absent) Urine RBC (Auto) (Absent) Urine Bacteria (Absent) Hyaline Casts (Absent) Urine Glucose (Negative) 03/09/17 03/09/17 Range/Units 21:53 22:13 WBC (3.5-10.8) 10^3/ul RBC (4.0-5.4) 10^6/ul Hgb (14.0-18.0) g/dl Hct (42-52) % MCV (80-94) fL MCH (27-31) pg MCHC (31-36) g/dl RDW (10.5-15) % Plt Count (150-450) 10^3/ul MPV (7.4-10.4) um3 Immature Gran % (Auto) (0-9) % Absolute Neuts (auto) (1.5-7.7) 10^3/ul Absolute Lymphs (auto) (1.0-4.8) 10^3/ul Absolute Monos (auto) (0-0.8) 10^3/ul Absolute Eos (auto) (0-0.6) 10^3/ul Absolute Basos (auto) (0-0.2) 10^3/ul Absolute Nucleated RBC 10^3/ul Neutrophils % (38-83) % Band Neutrophils % (0-8) % Lymphocytes % (25-47) % Monocytes % (0-13) % Eosinophils % (0-6) % Metamyelocytes % Normal RBC Morphology Microcytosis Hem Pathologist Commnt INR (Anticoag Therapy) (0.89-1.11) Sodium (133-145) mmol/L Potassium (3.5-5.0) mmol/L Chloride (101-111) mmol/L Carbon Dioxide (22-32) mmol/L Anion Gap (2-11) mmol/L BUN (6-24) mg/dL Creatinine (0.67-1.17) mg/dL Est GFR ( Amer) (>60) Est GFR (Non-Af Amer) (>60) BUN/Creatinine Ratio (8-20) Glucose (70-100) mg/dL Lactic Acid 0.8 (0.5-2.0) mmol/L Calcium (8.6-10.3) mg/dL Total Bilirubin (0.2-1.0) mg/dL AST (13-39) U/L ALT (7-52) U/L Alkaline Phosphatase (34-104) U/L Troponin I (<0.04) ng/mL C-Reactive Protein (< 5.00) mg/L Total Protein (6.4-8.9) g/dL Albumin (3.2-5.2) g/dL Globulin (2-4) g/dL Albumin/Globulin Ratio (1-3) Urine Color Yellow Urine Appearance Clear Urine pH 5.0 (5-9) Ur Specific Barker 1.009 L (1.010-1.030) Urine Protein Negative (Negative) Urine Ketones Negative (Negative) Urine Blood Negative (Negative) Urine Nitrate Negative (Negative) Urine Bilirubin Negative (Negative) Urine Urobilinogen Negative (Negative) Ur Leukocyte Esterase 1+ H (Negative) Urine WBC (Auto) 2+(11-20/hpf) H (Absent) Urine RBC (Auto) Trace(0-2/hpf) (Absent) Urine Bacteria 1+ H (Absent) Hyaline Casts Present H (Absent) Urine Glucose Negative (Negative) Result Diagrams: 03/09/17 21:35 03/09/17 21:35 Lab Statement: Any lab studies that have been ordered have been reviewed, and results considered in the medical decision making process. - Radiology CXR Radiology Interpretation Completed By: Radiologist - CARDIOMEGALY. NO DEFINITE PNEUMONIA IS IDENTIFIED. ED physician has reviewed this radiology report and agrees. Complex Multi-Symp Course/Dx Course Of Treatment: Mr. Merino was brought into the ED by his . He met sepsis criteria and was given IV NS as well as broad spectrum antibiotics. He has bad sacral decubiti and this may be the source. - Diagnoses Provider Diagnoses: Severe sepsis - Physician Notifications Discussed Care Of Patient With: Vicente Rowland Time Discussed With Above Provider: 22:39 Instructed by Provider To: Other - Consulted Dr. Rowland (hospitalist) who agrees to admit. - Critical Care Time Critical Care Time: 30-74 min Discharge - Discharge Plan Condition: Stable Disposition: ADMITTED TO [facility] Referrals: Molly Griffiths MD [Primary Care Provider] - The documentation as recorded by the Brionna rodriguez Alfonso accurately reflects the service I personally performed and the decisions made by me, Jax Stroud MD.
[2017-03-10] MEDS ORDERED: Acetaminophen TAB* 325 MG PO PRN (00:47)
[2017-03-10] MEDS: Enoxaparin(*) 40 MG/0.4 ML SYR SUBCUT SCH (03:07)
[2017-03-10] MEDS: NS 0.9% 1000 ML* 1,000 ML IV SCH ×3 (03:25→21:56)
[2017-03-10] MEDS: fentaNYL Patch Check Q Shift 1 NOTE SCH ×2 (07:06→18:52)
[2017-03-10] MEDS ORDERED: Furosemide TAB* 40 MG PO SCH (09:00)
[2017-03-10] MEDS: Omeprazole CAP* 20 MG PO SCH (09:24)
[2017-03-10] MEDS: Cyanocobalamin TAB* 500 MCG PO SCH (09:24)
[2017-03-10] MEDS: Aspirin Low Dose CHEW TAB* 81 MG PO SCH (09:24)
[2017-03-10] MEDS: Ferrous Gluconate TAB* 324 MG TAB PO SCH ×2 (09:25→21:56)
[2017-03-10] MEDS: Pregabalin CAP(*) 50 MG PO SCH ×3 (09:26→21:56)
[2017-03-10] MEDS: fentaNYL PATCH 75 MCG/HR* 75 MCG TRANSDERM SCH (09:28)
[2017-03-10] MEDS: Potassium Chlor TAB* 10 MEQ TAB.ER PO SCH (09:29)
[2017-03-10] MEDS: Cholecalciferol TAB* 1000 UNITS PO SCH (09:29)
[2017-03-10] MEDS: FOLIC ACID 400 MCG PO SCH (09:32)
--- NOTE | 2017-03-10 12:16 | HP ---
CC: Dr. Griffiths HISTORY AND PHYSICAL: DATE OF ADMISSION: 03/10/17 CHIEF COMPLAINT: Confusion. HISTORY OF PRESENT ILLNESS: Mr. Merino is a 71-year-old man with long history of ependymoma of the spine, which led to chronic back pain and paresis of lower extremities. He is currently wheelchair bound. Apparently, this whole process began in his 20s. He lives at home with his who cares for him. She is the main source of history. He was brought in by ambulance this evening to the emergency department because of decreased responsiveness and decreased p.o. intake over about a 2-day period. He has had also increased weakness and inability to transfer with transfer slide that she normally can use with him. She has not noticed any fevers at home. He has not had any new pains but he is essentially insensate from the waist down. His reports that he developed decubitus ulcers that began during his hospital stay on 02/12 less than a month ago here. Visiting nurse have been helping with the pressure ulcers at home. He has been referred to the wound clinic but that visit has not occurred yet. Patient has chronic pain and sees Dr. Castro at the pain clinic. He is on a fentanyl patch and recently was started on oral oxycodone liquid. She states the pain is 9/10 with movement and 4/10 to 5/10 at rest. Review of the chart showed he was admitted from February 12 to this hospital with potential sepsis due to urinary tract infection caused by indwelling Fischer catheter. He also had diarrhea at the time and acute kidney injury, which responded to fluid. PAST MEDICAL HISTORY: 1. Neurogenic bladder caused by ependymoma and repeat surgeries for this. 2. Hypertension. 3. GERD. 4. Obstructive sleep apnea, on BIPAP. 5. Coronary artery disease. 6. Hyperlipidemia. 7. BPH. 8. Asthma. 9. Chronic kidney disease, stage 3. Last creatinine clearance is 44. PAST SURGICAL HISTORY: He has had 4 spinal surgeries at [facility] for this ependymoma over the years. The patient also had an appendectomy after a ruptured appendix and during that operation his bladder was nicked and required repair. He had a right carotid endarterectomy in 2014. MEDICATIONS ON ADMISSION: 1. Acetaminophen 650 q. 4 hours p.r.n. pain or fever. 2. Aspirin 81 mg p.o. daily. 3. Vitamin D 5000 units p.o. daily. 4. Vitamin B12 1000 mcg p.o. daily. 5. Ferrous gluconate 324 mg p.o. b.i.d. 6. Folic acid 400 mcg p.o. daily. 7. Furosemide 40 mg p.o. b.i.d. 8. Omeprazole 40 mg p.o. daily. 9. Oxycodone 10 mg p.o. q. 4 hours p.r.n. breakthrough pain. 10. Potassium chloride 10 mEq p.o. daily. 11. Lyrica 150 mg p.o. t.i.d. 12. Fentanyl patch 75 mcg topically daily. ALLERGIES: LIPITOR, CHICKEN, VANILLA, and GRAPES. FAMILY HISTORY: Notable for father who of Parkinson's disease. Mother is alive at age 99. SOCIAL HISTORY: He is disabled. He is . His is his healthcare proxy. He does not smoke, no alcohol or drug use. REVIEW OF SYSTEMS: Patient denies any fevers, anorexia. Patient denies any chest pain or palpitations. Patient denies any cough or shortness of breath. Patient does admit to diarrhea for 6 weeks but denies any nausea, vomiting, or abdominal pain. His neurologic complaints are stable. He is insensate from the waist down. Remainder of all 14-point review of systems negative other than mentioned in the HPI. PHYSICAL EXAMINATION GENERAL: He is alert, in no acute distress. VITAL SIGNS: Temperature is 38.9, pulse 106, respirations 21, blood pressure is 103/40, oxygen saturation is 92% on room air. HEENT: Head is normocephalic, atraumatic. Sclerae anicteric. Pupils equal, round, and reactive to light and accommodation. Oropharynx is dry. No lesions. NECK: No carotid bruit. No thyromegaly. No cervical adenopathy. LUNGS: Clear to auscultation and percussion bilaterally. HEART: Tachycardic. Regular rhythm without murmurs. ABDOMEN: Soft, nontender, positive bowel sounds. No hepatosplenomegaly. EXTREMITIES: There is trace edema in bilateral lower extremities. NEUROLOGIC: Muscle strength is absent in the lower extremities. He has no sensation to light touch or pinprick from about L3 down. He is alert. He is oriented to hospital, his name, and date. SKIN: Notable for 2 x 5 x 1 cm deep sacral decubitus ulcer that appears to be stage III with purulent discharge. There is also an approximately 7 x 7 cm area on the left heel that with a combination of a healing ulcer and callus with no open moist areas. ASSESSMENT AND PLAN: A 71-year-old man presenting with sepsis. The source of this sepsis may be the sacral decubitus ulcer versus urinary tract infection versus abdominal infection such as colitis or diverticulitis. The patient will be admitted inpatient and given 30 mg/kg infusion of crystalloid fluid and then continuous maintenance fluids. He is started empirically on Zosyn for polymicrobial infection and this will continue until wound or urine or blood cultures prove helpful. The wound needs to be addressed by a wound consult in the hospital and referral to wound clinic on discharge. The heel ulcer could also be debrided and addressed while he is here. For his chronic kidney disease, his creatinine appears within his normal limit at this point. We will continue his antihypertensives and he gets plenty of fluids, but hold off on diuretics. Code status is full. He is high risk of deep venous thrombosis given his bedbound status and his weight, so he will have to continue his Lovenox while he is here in the hospital to prevent deep venous thrombosis. [id number]/[facility] #: [id number] VALERI
--- NOTE | 2017-03-10 12:28 | PN ---
Subjective Date of Service: 03/10/17 Interval History: Patient seen and examined at bedside. Pt states that he is feeling well today, Pt's reports that he had decreased responsiveness when she called EMS. Denies fever, chills, shortness of breath, chest discomfort, N/V. Pt has frequent lose stools that he is unaware of. Pt's has been cleaning area with saline and then using Silvadene or Santyl on the wound. Family History: Unchanged from Admission Social History: Unchanged from Admission Past Medical History: Unchanged from Admission Objective Active Medications: Acetaminophen (Tylenol Tab*) 650 mg PO Q4H PRN Reason: PAIN Aspirin (Aspirin Low Dose Tab*) 81 mg PO DAILY RADHA Cholecalciferol (Vitamin D Tab*) 5,000 units PO DAILY RADHA Cyanocobalamin (Vitamin B12 Tab*) 1,000 mcg PO DAILY RADHA Enoxaparin Sodium (Lovenox(*)) 40 mg SUBCUT Q24H RADHA Fentanyl (Duragesic Patch 75 Mcg/Hr*) 75 mcg TRANSDERM Q72HR RADHA Ferrous Gluconate (Fergon Tab*) 324 mg PO BID RADHA Sodium Chloride (Ns 0.9% 1000 Ml*) 1,000 mls @ 125 mls/hr IV PER RATE RADHA Piperacillin Sod/Tazobactam (Sod 3.375 gm/ Sodium Chloride) 100 mls @ 25 mls/ hr IVPB Q8H [facility] Non Formulary Med* ( (Folic Acid 400 Mcg)) 400 mcg PO DAILY RADHA Omeprazole (Prilosec Cap*) 40 mg PO DAILY@0730 RADHA Oxycodone HCl (Roxycodone Tab*) 10 mg PO Q4H PRN Reason: PAIN Pharmacy Profile Note (Fentanyl Patch Check Q Shift) 0 note N/A 0700,1900 RADHA Potassium Chloride (Klor Con Er Tab*) 10 meq PO DAILY RADHA Pregabalin (Lyrica Cap(*)) 150 mg PO TID RADHA Vital Signs 03/10/17 03/10/17 03/10/17 01:00 01:22 01:31 Temperature 99.9 F Pulse Rate 101 97 Respiratory 17 16 Rate Blood Pressure 98/35 (mmHg) O2 Sat by Pulse 96 94 Oximetry 03/10/17 03/10/17 03/10/17 02:22 02:45 07:39 Temperature 98.6 F 99.0 F Pulse Rate 104 88 Respiratory 20 20 16 Rate Blood Pressure 127/56 139/57 (mmHg) O2 Sat by Pulse 98 100 Oximetry 03/10/17 03/10/17 03/10/17 09:26 09:30 11:27 Temperature 99.0 F Pulse Rate 86 Respiratory 16 16 16 Rate Blood Pressure 146/61 (mmHg) O2 Sat by Pulse 100 99 Oximetry Oxygen Devices in Use Now: Nasal Cannula - 2 L Appearance: NAD, laying in bed Ears/Nose/Mouth/Throat: Mucous Membranes Moist Respiratory: Symmetrical Chest Expansion and Respiratory Effort, Clear to Auscultation Cardiovascular: NL Sounds; No Murmurs; No JVD, RRR Abdominal: NL Sounds; No Tenderness; No Distention Extremities: No Edema Skin: - - Deep sacral wound ~ 8 (h) x 3 (w at the widest point) cm, with yellow sough and areas of eschar. Larger open area ~ 11 (h) x 10.5 (w) cm. Area of eschar at ~ 1 oclock 2 x2 cm. Erythema around open area. Left heel with healing ulcer and blackened callus. Neurological: Alert and Oriented x 3 Lines/Tubes/Other Access: Clean, Dry and Intact Peripheral IV - site benign Nutrition: Taking PO's Result Diagrams: 03/09/17 21:35 03/09/17 21:35 Additional Lab and Data: Assess/Plan/Problems-Billing Assessment: Mr. 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 - Patient Problems (1) Sepsis Comment: - Meeting SIRS criteria on admission (Tachycardia, tachypnea, fever, leukocytosis) - Pt not meeting qSofa criteria on admission or at this time - No longer meeting SIRS criteria (tachycardia and tachypnea resolved, afebrile ) (2) Pressure ulcer of sacral region, stage 3 Code(s): L89.153 - PRESSURE ULCER OF SACRAL REGION, STAGE 3 SNOMED Code(s): 324061600 Comment: - Wound consult pending - Surgical consult pending - Continue Zosyn (3) CKD (chronic kidney disease), stage III Code(s): N18.3 - CHRONIC KIDNEY DISEASE, STAGE 3 (MODERATE) SNOMED Code(s): 359527865 Comment: - Creatinine within baseline - Baseline creatinine 2.1 to 2.5 - Avoid nephrotoxic medications (4) Anemia Code(s): D64.9 - ANEMIA, UNSPECIFIED SNOMED Code(s): 379809908 Comment: - No s/s of bleeding - Suspect anemia of chronic disease - Continue iron supplementation, B12, folate (5) CAD (coronary artery disease) Code(s): I25.10 - ATHSCL HEART DISEASE OF [place] CORONARY ARTERY W/O ANG PCTRS SNOMED Code(s): 47082927 Comment: - Continue ASA. (6) Ependymoma Code(s): C71.9 - MALIGNANT NEOPLASM OF BRAIN, UNSPECIFIED SNOMED Code(s): 215289829 Comment: - To the spine (dx in patient's 20s) - With concurrent chronic back pain and inability to ambulate - S/p multiple surgeries (7) Chronic back pain Code(s): M54.9 - DORSALGIA, UNSPECIFIED; G89.29 - OTHER CHRONIC PAIN SNOMED Code(s): 295230077 Comment: - Secondary to ependymoma - Continue oxycodone, pregabalin and fentanyl patch (8) HTN (hypertension) Code(s): I10 - ESSENTIAL (PRIMARY) HYPERTENSION SNOMED Code(s): 15763590 Comment: - Normotensive - Continue furosemide, olmesartan, and amlodipine (9) MATY (obstructive sleep apnea) Code(s): G47.33 - OBSTRUCTIVE SLEEP APNEA (ADULT) (PEDIATRIC) SNOMED Code(s): 12857127 Comment: - Continue home BiPAP use. (10) DVT prophylaxis Code(s): MLD7456 - SNOMED Code(s): 969871906 Comment: - Lovenox (11) Full code status Code(s): Z78.9 - OTHER SPECIFIED HEALTH STATUS SNOMED Code(s): 259387743 Status and Disposition: Inpatient. Estimated length of stay >3 days, discharge to home when medically stable.
--- NOTE | 2017-03-10 18:24 | OP ---
CC: Deon Degroot MD; Dr. Griffiths OPERATIVE REPORT: DATE OF OPERATION: 03/10/17 DATE OF : 45 SURGEON: Deon Degroot MD. PRE-OP DIAGNOSIS: Sacral decubitus ulcer. POST-OP DIAGNOSIS: Sacral decubitus ulcer. OPERATIVE PROCEDURE: Debridement of sacral decubitus ulcer. INDICATIONS: The patient is a 71-year-old male, who has had multiple spinal problems and multiple s urgeries in the past, who had a recent hospitalization, did spend a lot of time in bed and is now br ought back with fevers and a decubitus ulcer. I have been asked to consult on the wound by the hosp italist service. He has exhibited some signs of sepsis and so there was concern for underlying infe ction. On examination, he is an overweight appearing male with a sacral decubitus ulcer of approximately 3 x 5 cm, although there are multiple areas surrounding this that have erythema and an area to the rig ht of this that looks like an ulcer may form. At the center of this ulcer is an area of approximatel y 2.5 x 4 cm of faria necrotic tissue that feels soft and soupy underneath. I discussed this with the patient and with his and I think it is worth debriding this tissue to ensure that there is not an undrained pocket beneath, therefore sharp debridement is carried out ov er approximately 2 x 4 cm and this piece of tissue is sent for culture. Underneath, I encountered f iber connective tissue. The wound tracks laterally to the right side to a maximum of about 3 cm tow ards this secondary area noted above. It does not completely communicate with this area as yet. I discussed with the hospitalist service the placement of appropriate wound care and we will have the wound clinic service weigh in, in the next couple of days. Additionally, consideration should be given to MRI of the region to assess for possible osteomyeliti s unless he seems to show a dramatic clinical improvement. [id number]/[facility] #: [id number]
[2017-03-10] MEDS ORDERED: Diphenoxylat/Atrop 2.5-0.025M* 1 TAB PO PRN (20:19)
[2017-03-11] MEDS: Enoxaparin(*) 40 MG/0.4 ML SYR SUBCUT SCH (01:58)
[2017-03-11] MEDS: oxyCODONE TAB* 5 MG TAB PO PRN (02:31)
[2017-03-11] MEDS: NS 0.9% 1000 ML* 1,000 ML IV SCH ×2 (06:05→16:45)
[2017-03-11 07:04] LABS: Hematocrit 24 % (42-52); Hemoglobin 7.8 g/dl (14.0-18.0); Mean Corpuscular HGB Conc 33 g/dl (31-36); Mean Corpuscular Hemoglobin 26 pg (27-31); Mean Corpuscular Volume 80 fL (80-94); Mean Platelet Volume 7 um3 (7.4-10.4); Red Blood Count 2.97 10^6/ul (4.0-5.4); Red Cell Distribution Width 16 % (10.5-15); White Blood Count 12.4 10^3/ul (3.5-10.8)
[2017-03-11] MEDS: fentaNYL Patch Check Q Shift 1 NOTE SCH ×2 (07:27→18:46)
[2017-03-11] MEDS: Omeprazole CAP* 20 MG PO SCH (08:48)
[2017-03-11] MEDS: Potassium Chlor TAB* 10 MEQ TAB.ER PO SCH (08:49)
[2017-03-11] MEDS: Cyanocobalamin TAB* 500 MCG PO SCH (08:49)
[2017-03-11] MEDS: Pregabalin CAP(*) 50 MG PO SCH ×3 (08:49→21:46)
[2017-03-11] MEDS: FOLIC ACID 400 MCG PO SCH (08:49)
[2017-03-11] MEDS: Ferrous Gluconate TAB* 324 MG TAB PO SCH ×2 (08:49→21:47)
[2017-03-11] MEDS: Aspirin Low Dose CHEW TAB* 81 MG PO SCH (08:49)
[2017-03-11] MEDS: Cholecalciferol TAB* 1000 UNITS PO SCH (08:49)
[2017-03-11] MEDS: Folic Acid TAB* 1 MG PO SCH (10:36)
--- NOTE | 2017-03-11 13:34 | PN ---
Subjective Date of Service: 03/11/17 Interval History: Patient seen and examined at bedside. No complaints at this time. Denies fever, chills, shortness of breath, chest discomfort, N/V/D. Pt is INC stool and has no sensation that he is going. He is being turned frequently. Family History: Unchanged from Admission Social History: Unchanged from Admission Past Medical History: Unchanged from Admission Objective Active Medications: Acetaminophen (Tylenol Tab*) 650 mg PO Q4H PRN Reason: PAIN Aspirin (Aspirin Low Dose Tab*) 81 mg PO DAILY RADHA Cholecalciferol (Vitamin D Tab*) 5,000 units PO DAILY RADHA Cyanocobalamin (Vitamin B12 Tab*) 1,000 mcg PO DAILY RADHA Diphenoxylate HCl/Atropine (Lomotil Tab*) 1 tab PO BID PRN Reason: DIARRHEA Enoxaparin Sodium (Lovenox(*)) 40 mg SUBCUT Q24H RADHA Fentanyl (Duragesic Patch 75 Mcg/Hr*) 75 mcg TRANSDERM Q72HR RADHA Ferrous Gluconate (Fergon Tab*) 324 mg PO BID RADHA Folic Acid (Folvite Tab*) 0.5 mg PO DAILY RADHA Sodium Chloride (Ns 0.9% 1000 Ml*) 1,000 mls @ 125 mls/hr IV PER RATE RADHA Piperacillin Sod/Tazobactam (Sod 3.375 gm/ Sodium Chloride) 100 mls @ 25 mls/ hr IVPB Q8H RADHA Omeprazole (Prilosec Cap*) 40 mg PO DAILY@0730 RADHA Oxycodone HCl (Roxycodone Tab*) 10 mg PO Q4H PRN Reason: PAIN Pharmacy Profile Note (Fentanyl Patch Check Q Shift) 0 note N/A 0700,1900 RADHA Potassium Chloride (Klor Con Er Tab*) 10 meq PO DAILY RADHA Pregabalin (Lyrica Cap(*)) 150 mg PO TID RADHA Vital Signs 03/10/17 03/10/17 03/10/17 14:50 15:38 19:38 Temperature 99.2 F 99.8 F Pulse Rate 84 94 Respiratory 16 17 16 Rate Blood Pressure 124/53 125/38 (mmHg) O2 Sat by Pulse 98 98 Oximetry 03/10/17 03/10/17 03/10/17 22:49 23:26 23:56 Temperature 99.7 F Pulse Rate 85 Respiratory 16 18 16 Rate Blood Pressure 127/47 (mmHg) O2 Sat by Pulse 98 Oximetry 03/11/17 03/11/17 03/11/17 02:31 04:13 04:35 Temperature 99.4 F Pulse Rate 73 Respiratory 16 18 18 Rate Blood Pressure 96/31 (mmHg) O2 Sat by Pulse 96 Oximetry 03/11/17 03/11/17 03/11/17 07:24 08:35 08:49 Temperature 98.1 F Pulse Rate 78 Respiratory 16 16 16 Rate Blood Pressure 131/50 (mmHg) O2 Sat by Pulse 95 Oximetry 03/11/17 03/11/17 10:49 11:27 Temperature 98.4 F Pulse Rate 77 Respiratory 16 16 Rate Blood Pressure 111/47 (mmHg) O2 Sat by Pulse 96 Oximetry Oxygen Devices in Use Now: None Appearance: NAD, laying in bed Ears/Nose/Mouth/Throat: Mucous Membranes Moist Respiratory: Symmetrical Chest Expansion and Respiratory Effort, Clear to Auscultation Cardiovascular: NL Sounds; No Murmurs; No JVD, RRR Abdominal: NL Sounds; No Tenderness; No Distention Extremities: No Edema Neurological: Alert and Oriented x 3, NL Muscle Strength and Tone Lines/Tubes/Other Access: Clean, Dry and Intact Peripheral IV - site benign Nutrition: Taking PO's Result Diagrams: 03/11/17 06:54 03/09/17 21:35 Additional Lab and Data: Picture taken 03/11 prior to bedside debridement Microbiology and Other Data: Microbiology 03/10/17 13:40 Wound Gram Stain - Final Tissue - Other Tissue Culture - Preliminary Bacteroides Vulgatus Skin and Soft Tissue MRSA/MSSA (PCR - Final Mrsa Negative S.aureus Negative Assess/Plan/Problems-Billing Assessment: Mr. 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 - Patient Problems (1) Sepsis Comment: - Meeting SIRS criteria on admission (Tachycardia, tachypnea, fever, leukocytosis) - Pt not meeting qSofa criteria on admission or at this time - No longer meeting SIRS criteria (tachycardia and tachypnea resolved, afebrile) - Leukocytosis improving (2) Pressure ulcer of sacral region, stage 3 Code(s): L89.153 - PRESSURE ULCER OF SACRAL REGION, STAGE 3 SNOMED Code(s): 782925746 Comment: - S/P bedside debridement 03/10 - Wound consult pending - Surgical consult, appreciate input - Continue Zosyn (3) CKD (chronic kidney disease), stage III Code(s): N18.3 - CHRONIC KIDNEY DISEASE, STAGE 3 (MODERATE) SNOMED Code(s): 926818387 Comment: - Creatinine within baseline - Baseline creatinine 2.1 to 2.5 - Avoid nephrotoxic medications (4) Anemia Code(s): D64.9 - ANEMIA, UNSPECIFIED SNOMED Code(s): 127047684 Comment: - No s/s of bleeding - Suspect anemia of chronic disease - Continue iron supplementation, B12, folate (5) CAD (coronary artery disease) Code(s): I25.10 - ATHSCL HEART DISEASE OF [place] CORONARY ARTERY W/O ANG PCTRS SNOMED Code(s): 80403185 Comment: - Continue ASA. (6) Ependymoma Code(s): C71.9 - MALIGNANT NEOPLASM OF BRAIN, UNSPECIFIED SNOMED Code(s): 832068317 Comment: - To the spine (dx in patient's 20s) - With concurrent chronic back pain and inability to ambulate - S/p multiple surgeries (7) Chronic back pain Code(s): M54.9 - DORSALGIA, UNSPECIFIED; G89.29 - OTHER CHRONIC PAIN SNOMED Code(s): 704693394 Comment: - Secondary to ependymoma - Continue oxycodone, pregabalin and fentanyl patch (8) HTN (hypertension) Code(s): I10 - ESSENTIAL (PRIMARY) HYPERTENSION SNOMED Code(s): 08391951 Comment: - Normotensive - Continue furosemide and amlodipine (9) MATY (obstructive sleep apnea) Code(s): G47.33 - OBSTRUCTIVE SLEEP APNEA (ADULT) (PEDIATRIC) SNOMED Code(s): 35078046 Comment: - Continue home BiPAP use. (10) DVT prophylaxis Code(s): GBE3158 - SNOMED Code(s): 723496965 Comment: - Lovenox (11) Full code status Code(s): Z78.9 - OTHER SPECIFIED HEALTH STATUS SNOMED Code(s): 645528835 Status and Disposition: Inpatient. Estimated length of stay >3 days, discharge to home when medically stable.
[2017-03-12] MEDS: Enoxaparin(*) 40 MG/0.4 ML SYR SUBCUT SCH (00:37)
[2017-03-12 06:42] LABS: Hematocrit 26 % (42-52); Hemoglobin 8.7 g/dl (14.0-18.0); Mean Corpuscular HGB Conc 33 g/dl (31-36); Mean Corpuscular Hemoglobin 26 pg (27-31); Mean Corpuscular Volume 80 fL (80-94); Mean Platelet Volume 7 um3 (7.4-10.4); Red Cell Distribution Width 17 % (10.5-15); White Blood Count 11.8 10^3/ul (3.5-10.8)
[2017-03-12 06:52] LABS: BUN/Creatinine Ratio 17.1 (8-20); Calcium 9.8 mg/dL (8.6-10.3); EGFR African American 51.4 (>60); EGFR Non-African American 39.9 (>60); Potassium 3.9 mmol/L (3.5-5.0)
[2017-03-12] MEDS: fentaNYL Patch Check Q Shift 1 NOTE SCH ×2 (06:53→19:23)
--- NOTE | 2017-03-12 08:49 | PN ---
Subjective Date of Service: 03/12/17 Interval History: Patient seen and examined at bedside. Pt states that he feels ok. Denies fever, chills, shortness of breath, chest discomfort, N/V. Pt has frequent soft stools. Family History: Unchanged from Admission Social History: Unchanged from Admission Past Medical History: Unchanged from Admission Objective Active Medications: Acetaminophen (Tylenol Tab*) 650 mg PO Q4H PRN Reason: PAIN Aspirin (Aspirin Low Dose Tab*) 81 mg PO DAILY RADHA Cholecalciferol (Vitamin D Tab*) 5,000 units PO DAILY RADHA Cyanocobalamin (Vitamin B12 Tab*) 1,000 mcg PO DAILY RADHA Diphenoxylate HCl/Atropine (Lomotil Tab*) 1 tab PO BID PRN Reason: DIARRHEA Enoxaparin Sodium (Lovenox(*)) 40 mg SUBCUT Q24H RADHA Fentanyl (Duragesic Patch 75 Mcg/Hr*) 75 mcg TRANSDERM Q72HR RADHA Ferrous Gluconate (Fergon Tab*) 324 mg PO BID RADHA Folic Acid (Folvite Tab*) 0.5 mg PO DAILY RADHA Piperacillin Sod/Tazobactam (Sod 3.375 gm/ Sodium Chloride) 100 mls @ 25 mls/ hr IVPB Q8H RADHA Sodium Chloride (Ns 0.9% 1000 Ml*) 1,000 mls @ 75 mls/hr IV PER RATE RADHA Omeprazole (Prilosec Cap*) 40 mg PO DAILY@0730 RADHA Oxycodone HCl (Roxycodone Tab*) 10 mg PO Q4H PRN Reason: PAIN Pharmacy Profile Note (Fentanyl Patch Check Q Shift) 0 note N/A 0700,1900 RADHA Potassium Chloride (Klor Con Er Tab*) 10 meq PO DAILY RADHA Pregabalin (Lyrica Cap(*)) 150 mg PO TID RADHA Vital Signs 03/11/17 03/11/17 03/11/17 08:49 10:49 11:27 Temperature 98.4 F Pulse Rate 77 Respiratory 16 16 16 Rate Blood Pressure 111/47 (mmHg) O2 Sat by Pulse 96 Oximetry 03/11/17 03/11/17 03/11/17 14:17 15:36 16:17 Temperature 100.9 F Pulse Rate 92 Respiratory 16 18 16 Rate Blood Pressure 146/55 (mmHg) O2 Sat by Pulse 95 Oximetry 03/11/17 03/11/17 03/11/17 19:30 20:58 21:18 Temperature 99.6 F 100.0 F Pulse Rate 87 86 Respiratory 16 16 16 Rate Blood Pressure 135/55 129/51 (mmHg) O2 Sat by Pulse 95 96 Oximetry 03/11/17 03/11/17 03/11/17 21:46 23:46 23:53 Temperature 99.1 F Pulse Rate 79 Respiratory 16 16 16 Rate Blood Pressure 134/41 (mmHg) O2 Sat by Pulse 95 Oximetry 03/12/17 03:48 Temperature 98.5 F Pulse Rate 78 Respiratory 16 Rate Blood Pressure 151/53 (mmHg) O2 Sat by Pulse 96 Oximetry Oxygen Devices in Use Now: None Appearance: NAD, laying in bed Ears/Nose/Mouth/Throat: Mucous Membranes Moist Respiratory: Symmetrical Chest Expansion and Respiratory Effort, Clear to Auscultation Cardiovascular: NL Sounds; No Murmurs; No JVD, RRR Abdominal: NL Sounds; No Tenderness; No Distention Extremities: No Edema Skin: - - Large sacral wound, see attached pictures Neurological: Alert and Oriented x 3 Lines/Tubes/Other Access: Clean, Dry and Intact Peripheral IV - site benign Nutrition: Taking PO's Result Diagrams: 03/12/17 06:29 03/12/17 06:29 Additional Lab and Data: Picture taken 03/12 Microbiology and Other Data: Microbiology 03/10/17 13:40 Wound Gram Stain - Final Tissue - Other Tissue Culture - Preliminary Bacteroides Vulgatus Skin and Soft Tissue MRSA/MSSA (PCR - Final Mrsa Negative S.aureus Negative Assess/Plan/Problems-Billing Assessment: Mr. 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 - Patient Problems (1) Sepsis Comment: - Meeting SIRS criteria on admission (Tachycardia, tachypnea, fever, leukocytosis) - Pt not meeting qSofa criteria on admission or at this time - No longer meeting SIRS criteria (tachycardia and tachypnea resolved, afebrile) - Leukocytosis and CRP improving (2) Pressure ulcer of sacral region, stage 3 Code(s): L89.153 - PRESSURE ULCER OF SACRAL REGION, STAGE 3 SNOMED Code(s): 437122947 Comment: - S/P bedside debridement 03/10 - Wound consult pending - Surgical consult, appreciate input - Continue Zosyn (3) CKD (chronic kidney disease), stage III Code(s): N18.3 - CHRONIC KIDNEY DISEASE, STAGE 3 (MODERATE) SNOMED Code(s): 452106356 Comment: - Creatinine within baseline - Baseline creatinine 2.1 to 2.5 - Avoid nephrotoxic medications (4) Anemia Code(s): D64.9 - ANEMIA, UNSPECIFIED SNOMED Code(s): 933582708 Comment: - No s/s of bleeding - Suspect anemia of chronic disease - Received 1 U PRBCs yesterday - Continue iron supplementation, B12, folate (5) CAD (coronary artery disease) Code(s): I25.10 - ATHSCL HEART DISEASE OF [place] CORONARY ARTERY W/O ANG PCTRS SNOMED Code(s): 40905193 Comment: - Continue ASA. (6) Ependymoma Code(s): C71.9 - MALIGNANT NEOPLASM OF BRAIN, UNSPECIFIED SNOMED Code(s): 426664119 Comment: - To the spine (dx in patient's 20s) - With concurrent chronic back pain and inability to ambulate - S/p multiple surgeries (7) Chronic back pain Code(s): M54.9 - DORSALGIA, UNSPECIFIED; G89.29 - OTHER CHRONIC PAIN SNOMED Code(s): 822855137 Comment: - Secondary to ependymoma - Continue oxycodone, pregabalin and fentanyl patch (8) HTN (hypertension) Code(s): I10 - ESSENTIAL (PRIMARY) HYPERTENSION SNOMED Code(s): 39723632 Comment: - Normotensive - Continue furosemide and amlodipine (9) MATY (obstructive sleep apnea) Code(s): G47.33 - OBSTRUCTIVE SLEEP APNEA (ADULT) (PEDIATRIC) SNOMED Code(s): 88379531 Comment: - Continue home BiPAP use. (10) DVT prophylaxis Code(s): BND0983 - SNOMED Code(s): 437188286 Comment: - Lovenox (11) Full code status Code(s): Z78.9 - OTHER SPECIFIED HEALTH STATUS SNOMED Code(s): 002409395 Status and Disposition: Inpatient. Estimated length of stay >3 days, discharge to home when medically stable.
[2017-03-12] MEDS: Pregabalin CAP(*) 50 MG PO SCH ×3 (09:24→21:16)
[2017-03-12] MEDS: Cyanocobalamin TAB* 500 MCG PO SCH (09:25)
[2017-03-12] MEDS: Cholecalciferol TAB* 1000 UNITS PO SCH (09:26)
[2017-03-12] MEDS: Potassium Chlor TAB* 10 MEQ TAB.ER PO SCH (09:26)
[2017-03-12] MEDS: Aspirin Low Dose CHEW TAB* 81 MG PO SCH (09:26)
[2017-03-12] MEDS: Omeprazole CAP* 20 MG PO SCH (09:26)
[2017-03-12] MEDS: oxyCODONE TAB* 5 MG TAB PO PRN ×2 (09:27→17:59)
[2017-03-12] MEDS: Folic Acid TAB* 1 MG PO SCH (09:27)
[2017-03-12] MEDS: Ferrous Gluconate TAB* 324 MG TAB PO SCH ×2 (09:31→21:15)
[2017-03-12] MEDS: NS 0.9% 1000 ML* 1,000 ML IV SCH (15:47)
--- NOTE | 2017-03-12 16:02 | CONS ---
CC: [facility]; Dr. Griffiths in [place] * CONSULTATION REPORT: DATE OF CONSULT: 03/12/17 REFERRING PROVIDER: Vicente Rowland MD REASON FOR CONSULTATION: Sacral decubitus. HISTORY OF PRESENT ILLNESS: Mr. Kavon Merino is a 71-year-old gentleman with a long history of an ependymoma of the lower spine that has resulted in chronic low back pain and paresthesia and neuropathy of the lower extremities. He is currently wheelchair bound. He has had multiple lower back surgeries in [place] in [place]; however, most recently back in the . He lives at home with his . He says for the last 4 years now, he has been wheelchair bound and transfers only from bed to chair with her assistance as well as his upper body strength and a slider. He, apparently, was admitted and treated for dehydration and diarrhea earlier this summer here at [facility] and developed a sacral decubitus. He was at home and she noted that he had some mental status change with fevers and poor oral intake over a 48-hour period, presented to the emergency room, and was found to have septic parameters. He was admitted and started on IV antibiotics, cultures were taken. He was noted to have a sacral decubitus. Dr. Degroot performed a limited decubitus debridement upon admission. This showed no undrained abscess. There is still some nonviable tissue; however, and undermining. Cultures were obtained, which showed multi-organisms and can be seen in the microbiology report. He is presently on Zosyn and the wound is being dressed daily with an Aquacel silver dressing. PAST MEDICAL HISTORY: 1. Ependymoma of the lower spine. 2. Neurogenic bladder. 3. Hypertension. 4. Gastroesophageal reflux. 5. Obstructive sleep apnea. 6. History of coronary artery disease. 7. Hyperlipidemia. 8. Asthma. 9. Chronic kidney disease, stage 3. PAST SURGICAL HISTORY: 1. Four spinal surgeries at [facility] in the . 2. Appendectomy. 3. Right carotid endarterectomy. MEDICATIONS: Included: 1. Tylenol. 2. Aspirin. 3. Vitamin D. 4. Lasix. 5. Omeprazole. 6. Oxycodone. 7. Potassium. 8. Lyrica. 9. Fentanyl. ALLERGIES: LIPITOR, CHICKEN, VANILLA, and GRAPES. SOCIAL HISTORY: He is disabled. He is . His is his healthcare proxy. 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 He does not smoke or use alcohol. PHYSICAL EXAM: Temperature 99, pulse 74, blood pressure 144/56. General: He is an elderly male. He is awake, alert, conversive, quite pleasant, appears to be in no apparent distress. On the lower back, he has several midline incisions from about the L2 level down to the coccygeal area, which are quite deep and furrowed. There is a sacral decubitus at the lower midline with some necrotic nonviable tissue as well as some eschar as well as undermining. There is no significant surrounding erythema or redness. There is a mild odor, but there is no purulence noted or what appears to be undrained abscess. There is no tracking that extends down towards the anus. IMPRESSION: Sacral decubitus. This, apparently, developed from a recent hospitalization. He is wheelchair bound and non-ambulatory and has no sensation from the upper waist area down. The wound was minimally debrided, still has nonviable tissue, but this was done initially to rule out any underlying abscess or cause of his sepsis. PLAN: I discussed all the findings with the patient and his at the bedside in detail. This is a complicated and chronic problem made worse by his neuropathy and wheelchair bound/bedbound status. I emphasized to them that this will be a difficult and challenging wound to treat and what I would recommend initially would be a more extensive debridement to remove all of the nonviable tissue and adequately stage the ulcer so that we can begin adequate wound care such as either a wound VAC or more intensive wound care dressings. This also will most certainly require a plastic surgical consultation, especially in light of his bedbound status to try to prevent further recurrence. For now, the wound will be dressed with wet-to-dry 4x4 gauze. Continue the offloading program at present. We will keep him n.p.o. after midnight and hold his subcutaneous heparin and plan for an operative debridement tomorrow with limited anesthesia. All of the above was discussed with the patient and his and their questions were answered. [id number]/[facility] #: [id number] VALERI
[2017-03-12] MEDS ORDERED: Albuterol 2.5 MG/3 ML NEB.SOL* (0.083%) INH ONE (18:21)
[2017-03-12] MEDS ORDERED: Albuterol 2.5 MG/3 ML NEB.SOL* (0.083%) ONE (18:24)
--- NOTE | 2017-03-12 19:42 | RAD ---
Indication: Fever, dyspnea, wheezing. Comparison: March 09, 2017 Technique: Upright AP 1845 hours Report: Bilateral alveolar consolidation most confluent in the RIGHT mid and bilateral medial lower lung zones. Negative for pleural effusions. The heart, pulmonary vasculature, and mediastinal contours are unremarkable. IMPRESSION: The constellation of findings given the clinical context is most consistent with bronchopneumonia.
[2017-03-12] MEDS ORDERED: Vancomycin(*) 1,250 MG in NS 0.9% 250 ML* 250 ML IVPB ONE (21:00)
--- NOTE | 2017-03-12 22:05 | PN ---
Hospitalist Progress Note 1809: Received a call from the [facility] staff that the patient was complaining of shortness of breath. VS obtained: Pt noted to be febrile. Lung sounds with wheezing noted throughout. Pt in NAD. Pt received an albuterol treatment and stated improvement in his SOB. Chest xray obtained - RADIOLOGIST's IMPRESSION: The constellation of findings given the clinical context is most consistent with bronchopneumonia. Will start the patient on Vanco in addition to Zosyn for possible hospital acquired PNA. Will also check urine for S. Pneumo and Legionella antigens and attempt to obtain a sputum culture.
[2017-03-12] MEDS ORDERED: Vancomycin per Pharmacy* NOTE FOLLOW UP PRN (22:51)
[2017-03-13] MEDS: fentaNYL Patch Check Q Shift 1 NOTE SCH ×2 (07:01→19:03)
[2017-03-13 07:08] LABS: Hematocrit 26 % (42-52); Hemoglobin 8.6 g/dl (14.0-18.0); Mean Corpuscular HGB Conc 33 g/dl (31-36); Mean Corpuscular Hemoglobin 26 pg (27-31); Mean Corpuscular Volume 79 fL (80-94); Mean Platelet Volume 7 um3 (7.4-10.4); Red Blood Count 3.26 10^6/ul (4.0-5.4); Red Cell Distribution Width 16 % (10.5-15); White Blood Count 11.5 10^3/ul (3.5-10.8)
[2017-03-13 07:19] LABS: Calcium 9.7 mg/dL (8.6-10.3); EGFR Non-African American 45.1 (>60); Potassium 3.9 mmol/L (3.5-5.0)
[2017-03-13] MEDS: Folic Acid TAB* 1 MG PO SCH (09:33)
[2017-03-13] MEDS: Cholecalciferol TAB* 1000 UNITS PO SCH (09:33)
[2017-03-13] MEDS: Ferrous Gluconate TAB* 324 MG TAB PO SCH ×2 (09:33→21:34)
[2017-03-13] MEDS: Aspirin Low Dose CHEW TAB* 81 MG PO SCH (09:33)
[2017-03-13] MEDS: Potassium Chlor TAB* 10 MEQ TAB.ER PO SCH (09:33)
[2017-03-13] MEDS: Cyanocobalamin TAB* 500 MCG PO SCH (09:33)
[2017-03-13] MEDS: Omeprazole CAP* 20 MG PO SCH (09:46)
[2017-03-13] MEDS: Pregabalin CAP(*) 50 MG PO SCH ×3 (09:46→21:31)
[2017-03-13] MEDS: fentaNYL PATCH 75 MCG/HR* 75 MCG TRANSDERM SCH (10:27)
--- NOTE | 2017-03-13 11:09 | PN ---
Progress Note - Progress Note Date of Service: 03/13/17 SOAP: Subjective: No changes overnight Objective: Temp Pulse Resp BP Pulse Ox 97.7 F 70 16 157/59 95 03/13/17 07:20 03/13/17 07:20 03/13/17 09:46 03/13/17 07:20 03/13/17 07:20 Sacral dressing intact Assessment: Sacral decubitus Plan: Debridement of sacral decubitus today. The procedure was discussed with the patient and his and the risks of, but not limited to, of bleeding, infection, pain, further surgical intervention depending on clinical course, the risks of anesthesia and DVT were all discussed. I once again emphasized to them the challenging nature of treating and healing sacral pressure ulcers and prolonged course involved to achieve healing of these ulcers.
[2017-03-13] MEDS: Vancomycin(*) 1,000 MG in NS 0.9% 250 ML* 250 ML IVPB SCH ×2 (11:10→22:22)
[2017-03-13] MEDS ORDERED: Lidocaine 1% MPF wEPI 200,000* 30 ML SDV ONE (11:53)
[2017-03-13] MEDS ORDERED: Bupivacaine 0.5% SDV PF* 30 ML VIAL ONE (11:53)
[2017-03-13] MEDS ORDERED: Midazolam* 1 MG/ML 5 ML VIAL (5 MG) ONE (12:05)
[2017-03-13] MEDS ORDERED: fentaNYL* 50 MCG/ML 2 ML VIAL (100 MCG VIAL) ONE ×2 (12:25→12:55)
[2017-03-13] MEDS ORDERED: Midazolam* 1 MG/ML 2 ML VIAL (2 MG) ONE (12:40)
--- NOTE | 2017-03-13 13:19 | SURGPN ---
Brief Operative Note - Surgery Procedures: Procedures OPERATIVE REPORT PRE-OP: Sacral pressure ulcer POST-OP: Same-grade IV PROCEDURE: Debridement of sacral pressure ulcer with deep tissue culture SURGEON: MD Eden ANESTHESIA:Local with [facility] Dr. Metz ASST: none IVF: min EBL: min SPECIMEN: Deep tissue ulcer for culture DRAIN: none WOUND CLASS: 4 COMPLICATIONS: none TO PACU
[2017-03-13] MEDS ORDERED: Ondansetron INJ* 2 MG/ML VIAL IV PRN (14:14)
[2017-03-13] MEDS ORDERED: fentaNYL* 50 MCG/ML 2 ML VIAL (100 MCG VIAL) IV PRN (14:14)
[2017-03-13] MEDS: Albuterol/Ipratropium NEB.SOL* Albuterol 2.5 MG/Ipratropium 0.5 MG 3 ML INH PRN (15:51)
[2017-03-13] MEDS: oxyCODONE TAB* 5 MG TAB PO PRN ×2 (16:08→21:34)
--- NOTE | 2017-03-13 17:41 | PN ---
Subjective Date of Service: 03/13/17 Interval History: Started on vancomycin last night after SOB and CXR with right and b/l medial lower lobe alveolar infiltrates. No current SOB or coughing. to OR today for sharp debridement Family History: Unchanged from Admission Social History: Unchanged from Admission Past Medical History: Unchanged from Admission Objective Active Medications: Acetaminophen (Tylenol Tab*) 650 mg PO Q4H PRN PRN Reason: PAIN Albuterol/Ipratropium (Duoneb (Albuterol 2.5 Mg/Ipratropium 0.5 Mg)) 1 neb INH Q4H PRN PRN Reason: SOB/WHEEZING Last Admin: 03/13/17 15:51 Dose: 1 neb Aspirin (Aspirin Low Dose Tab*) 81 mg PO DAILY [facility] Last Admin: 03/13/17 09:33 Dose: Not Given Cholecalciferol (Vitamin D Tab*) 5,000 units PO DAILY [facility] Last Admin: 03/13/17 09:33 Dose: Not Given Cyanocobalamin (Vitamin B12 Tab*) 1,000 mcg PO DAILY [facility] Last Admin: 03/13/17 09:33 Dose: Not Given Diphenoxylate HCl/Atropine (Lomotil Tab*) 1 tab PO BID PRN PRN Reason: DIARRHEA Last Admin: 03/10/17 20:49 Dose: 1 tab Enoxaparin Sodium (Lovenox(*)) 40 mg SUBCUT Q24H [facility] Fentanyl (Duragesic Patch 75 Mcg/Hr*) 75 mcg TRANSDERM Q72HR [facility] Last Admin: 03/13/17 10:27 Dose: 75 mcg Fentanyl Citrate (Fentanyl*) 25 mcg IV Q2M PRN PRN Reason: PAIN - MODERATE Stop: 03/14/17 17:00 Ferrous Gluconate (Fergon Tab*) 324 mg PO BID [facility] Last Admin: 03/13/17 09:33 Dose: Not Given Folic Acid (Folvite Tab*) 0.5 mg PO DAILY [facility] Last Admin: 03/13/17 09:33 Dose: Not Given Piperacillin Sod/Tazobactam (Sod 3.375 gm/ Sodium Chloride) 100 mls @ 200 mls/ hr IVPB Q6H [facility] Last Admin: 03/13/17 16:08 Dose: 200 mls/hr Vancomycin HCl 1,000 mg/ (Sodium Chloride) 250 mls @ 166.667 mls/hr IVPB Q12H [facility] Last Admin: 03/13/17 11:10 Dose: 166.667 mls/hr Omeprazole (Prilosec Cap*) 40 mg PO DAILY@0730 [facility] Last Admin: 03/13/17 09:46 Dose: 40 mg Oxycodone HCl (Roxycodone Tab*) 10 mg PO Q4H PRN PRN Reason: PAIN Last Admin: 03/13/17 16:08 Dose: 10 mg Pharmacy Consult (Vancomycin Per Pharmacy*) 1 note FOLLOW UP . PRN PRN Reason: PER PROTOCOL Pharmacy Profile Note (Fentanyl Patch Check Q Shift) 0 note N/A 0700,1900 [facility] Last Admin: 03/13/17 07:01 Dose: 1 note Pharmacy Profile Note (Vancomycin Trough Check) 1 note FOLLOW UP 929 ONE Stop: 03/14/17 09:31 Potassium Chloride (Klor Con Er Tab*) 10 meq PO DAILY [facility] Last Admin: 03/13/17 09:33 Dose: Not Given Pregabalin (Lyrica Cap(*)) 150 mg PO TID [facility] Last Admin: 03/13/17 16:06 Dose: Not Given Vital Signs 03/12/17 03/12/17 03/12/17 17:41 17:59 18:11 Temperature Pulse Rate 98 Respiratory 16 16 18 Rate Blood Pressure 155/57 (mmHg) O2 Sat by Pulse 95 Oximetry 03/12/17 03/12/17 03/12/17 18:35 19:44 19:59 Temperature 99.8 F Pulse Rate 100 91 Respiratory 24 16 Rate Blood Pressure 145/57 (mmHg) O2 Sat by Pulse 98 Oximetry 03/12/17 03/12/17 03/12/17 21:10 21:16 22:58 Temperature Pulse Rate Respiratory 16 18 15 Rate Blood Pressure (mmHg) O2 Sat by Pulse Oximetry 03/13/17 03/13/17 03/13/17 00:10 03:29 07:20 Temperature 99.7 F 100.0 F 97.7 F Pulse Rate 78 75 70 Respiratory 16 16 10 Rate Blood Pressure 147/54 152/54 157/59 (mmHg) O2 Sat by Pulse 96 94 95 Oximetry 03/13/17 03/13/17 03/13/17 08:00 09:46 13:15 Temperature 99.1 F Pulse Rate 76 Respiratory 16 16 16 Rate Blood Pressure 140/69 (mmHg) O2 Sat by Pulse 90 Oximetry 03/13/17 03/13/17 03/13/17 13:30 14:00 14:15 Temperature Pulse Rate 77 76 80 Respiratory 18 16 16 Rate Blood Pressure 152/68 157/67 165/68 (mmHg) O2 Sat by Pulse 98 95 95 Oximetry 03/13/17 03/13/17 03/13/17 14:42 15:06 15:17 Temperature 98.2 F 98.3 F Pulse Rate 81 87 80 Respiratory 16 16 20 Rate Blood Pressure 173/79 153/78 175/80 (mmHg) O2 Sat by Pulse 95 96 100 Oximetry 03/13/17 03/13/17 03/13/17 15:33 15:54 16:08 Temperature 98.3 F Pulse Rate 80 88 Respiratory 20 18 16 Rate Blood Pressure 175/80 (mmHg) O2 Sat by Pulse 100 95 Oximetry 03/13/17 16:24 Temperature 100.4 F Pulse Rate 88 Respiratory 15 Rate Blood Pressure 151/71 (mmHg) O2 Sat by Pulse 97 Oximetry Oxygen Devices in Use Now: None Appearance: chronically ill appearing. in pre-op wedged to right side. Pleasant in no acute distress Eyes: No Scleral Icterus, PERRLA Ears/Nose/Mouth/Throat: Mucous Membranes Moist Neck: NL Appearance and Movements; NL JVP Respiratory: Symmetrical Chest Expansion and Respiratory Effort, Clear to Auscultation, - - Anteriorly clear to auscultation bilaterally, no wheezing rales or rhonchi Cardiovascular: NL Sounds; No Murmurs; No JVD, RRR Abdominal: NL Sounds; No Tenderness; No Distention, No Hepatosplenomegaly Extremities: No Edema, No Clubbing, Cyanosis Skin: - - sacral decub. see photo from previous day Neurological: Alert and Oriented x 3, NL Muscle Strength and Tone Lines/Tubes/Other Access: Clean, Dry and Intact Arriaga Nutrition: Taking PO's Result Diagrams: 03/13/17 06:53 03/13/17 06:53 Additional Lab and Data: Picture taken 03/12 Microbiology and Other Data: Microbiology 03/10/17 13:40 Wound Gram Stain - Final Tissue - Other Tissue Culture - Preliminary Bacteroides Vulgatus Skin and Soft Tissue MRSA/MSSA (PCR - Final Mrsa Negative S.aureus Negative Assess/Plan/Problems-Billing Assessment: Mr. 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 PNA. On zosyn and vancomycin - Patient Problems (1) Sacral decubitus ulcer, stage IV Current Visit: Yes Status: Acute Code(s): L89.154 - PRESSURE ULCER OF SACRAL REGION, STAGE 4 SNOMED Code(s): 473900696 Comment: - S/P OR sharp debridement 03/13 and bedside debridement 03/10 - Wound consult - appreciate Surgical assistance. May need plastic surgery - Continue Zosyn (also on vancomycin), f/u deep tissue cultures - bacteroides, clostridium and E Faecalis from initial cultures (stool) (2) Pneumonia Current Visit: Yes Status: Acute Code(s): J18.9 - PNEUMONIA, UNSPECIFIED ORGANISM SNOMED Code(s): 008872791 Comment: Continue vancomycin and zosyn for HCAP. Consider sputum culture. (3) Paraplegia Current Visit: Yes Status: Acute Code(s): G82.20 - PARAPLEGIA, UNSPECIFIED SNOMED Code(s): 41238120 Comment: frequent turning, skin care. Pain control with home fentanyl 75mcg patch and oxycodone 10mg q4 prn, acetaminophen 650mg q6 prn. (4) Sepsis Current Visit: Yes Status: Acute Comment: - Meeting SIRS criteria on admission (Tachycardia, tachypnea, fever, leukocytosis) - Pt not meeting qSofa criteria on admission or at this time - No longer meeting SIRS criteria (tachycardia and tachypnea resolved, afebrile) - Leukocytosis and CRP improving (5) Anemia Current Visit: No Status: Chronic Code(s): D64.9 - ANEMIA, UNSPECIFIED SNOMED Code(s): 483155422 Comment: - No s/s of bleeding - Suspect anemia of chronic disease - Received 1 U PRBCs 03/11 - Continue iron supplementation, B12, folate Status and Disposition: Inpatient. Estimated length of stay >3 days, discharge to home when medically stable. Attending: Madan Tolentino
[2017-03-13] MEDS: Enoxaparin(*) 40 MG/0.4 ML SYR SUBCUT SCH (21:36)
[2017-03-14] MEDS: fentaNYL Patch Check Q Shift 1 NOTE SCH ×2 (07:11→18:58)
[2017-03-14] MEDS: Cholecalciferol TAB* 1000 UNITS PO SCH (07:49)
[2017-03-14] MEDS: Folic Acid TAB* 1 MG PO SCH (07:49)
[2017-03-14] MEDS: Ferrous Gluconate TAB* 324 MG TAB PO SCH ×2 (07:50→21:15)
[2017-03-14] MEDS: oxyCODONE TAB* 5 MG TAB PO PRN ×2 (07:50→17:52)
[2017-03-14] MEDS: Omeprazole CAP* 20 MG PO SCH (07:50)
[2017-03-14] MEDS: Cyanocobalamin TAB* 500 MCG PO SCH (07:50)
[2017-03-14] MEDS: Aspirin Low Dose CHEW TAB* 81 MG PO SCH (07:50)
[2017-03-14] MEDS: Potassium Chlor TAB* 10 MEQ TAB.ER PO SCH (07:50)
[2017-03-14] MEDS: Pregabalin CAP(*) 50 MG PO SCH ×3 (07:50→21:15)
[2017-03-14] MEDS ORDERED: Vancomycin Trough Check NOTE FOLLOW UP ONE (09:30)
[2017-03-14] MEDS: Vancomycin(*) 1,000 MG in NS 0.9% 250 ML* 250 ML IVPB SCH ×2 (10:40→23:11)
[2017-03-14 13:58] LABS: Hematocrit 28 % (42-52); Hemoglobin 9.1 g/dl (14.0-18.0); Mean Corpuscular HGB Conc 33 g/dl (31-36); Mean Corpuscular Hemoglobin 27 pg (27-31); Mean Corpuscular Volume 82 fL (80-94); Mean Platelet Volume 8 um3 (7.4-10.4); Red Blood Count 3.42 10^6/ul (4.0-5.4); Red Cell Distribution Width 17 % (10.5-15); White Blood Count 9.9 10^3/ul (3.5-10.8)
[2017-03-14 14:28] LABS: BUN/Creatinine Ratio 16.4 (8-20); Calcium 9.4 mg/dL (8.6-10.3); EGFR African American 61.2 (>60); EGFR Non-African American 47.6 (>60); Potassium 3.9 mmol/L (3.5-5.0)
--- NOTE | 2017-03-14 16:36 | OP ---
CC: Dr. Griffiths * DATE OF OPERATION: 03/13/17 - ROOM #349 DATE OF : 45 SURGEON: Stanislaw Harmon MD. ANESTHESIA: Local with monitored anesthesia care. ANESTHESIOLOGIST: Dr. Metz. PRE-OP DIAGNOSIS: Unstaged sacral pressure ulcer. POST-OP DIAGNOSIS: Stage IV sacral pressure ulcer. OPERATIVE PROCEDURE: Debridement of stage IV pressure ulcer with cultures. ESTIMATED BLOOD LOSS: Minimal. SPECIMEN: Deep tissue for Gram stain and culture. DRAINS: None. WOUND CLASSIFICATION: IV. COMPLICATIONS: None. BRIEF HISTORY: Mr. Kavon Merino is a 71-year-old gentleman with history of a benign lower spinal cord tumor, which has resulted in him becoming wheelchair and bedbound. He developed a sacral pressure ulcer in the last 6 weeks, was admitted with sepsis, does have an open unstaged sacral decubitus, which is now to be taken to the operating room for debridement as initial portion of his treatment plan. The procedure was discussed with the patient and his , the risk but not limited to bleeding, infection, recurrence, discomfort, further surgical intervention depending on clinical course and findings, prolonged healing with the understanding that plastic surgical consultation will most likely be necessary and once again emphasized them the difficulty and frustration of achieving healing in this type of situation. DESCRIPTION OF PROCEDURE: Written informed consent was obtained, preoperative antibiotics had been administered. He was taken to the operating room. I did not stevo the site due to its midline location. The patient was placed in the left lateral decubitus position and the lower back and buttocks were prepped and draped in the usual sterile fashion. Time-out verification was completed. I next proceeded to debride sharply as well as with cautery the eschar and nonviable tissue over the low midline. There was a separate area of eschar to the right several centimeters and these tunneled together. I thus removed the skin bridge between the two and carried down the debridement to some healthy muscle and fat which bled. Several 3-0 Polysorb sutures were used to control bleeding throughout the dissection. The wound extended down more inferiorly as well. This was all debrided to healthy bleeding tissue. I did not expose bone at the lower sacral coccygeal area; however, there was fibrous tissue at the base with scar tissue from his previous surgeries. I did take a deep culture to send for Gram stain and culture. Once I felt that an adequate debridement was performed and hemostasis was assured, the wound was irrigated with saline. It was then packed with a moist 4- inch Kerlix and covered with dry ABD pads. The patient tolerated the procedure well, was taken to the recovery room in stable condition. [id number]/[facility] #: [id number] MTDD
--- NOTE | 2017-03-14 17:16 | PN ---
Subjective Date of Service: 03/14/17 Interval History: Tolerated sharp debridement. Attests to adequate pain control. No nausea. Hgb improved to 9.1/ Deep tissue positive for E Faecalis and Bacteroides vulgatus to date. GS with GPC in chains. SOB last night and got albuterol ( notice head to be leaning to side) Family History: Unchanged from Admission Social History: Unchanged from Admission Past Medical History: Unchanged from Admission Objective Active Medications: Acetaminophen (Tylenol Tab*) 650 mg PO Q4H PRN PRN Reason: PAIN Albuterol/Ipratropium (Duoneb (Albuterol 2.5 Mg/Ipratropium 0.5 Mg)) 1 neb INH Q4H PRN PRN Reason: SOB/WHEEZING Last Admin: 03/13/17 15:51 Dose: 1 neb Aspirin (Aspirin Low Dose Tab*) 81 mg PO DAILY [facility] Last Admin: 03/14/17 07:50 Dose: 81 mg Cholecalciferol (Vitamin D Tab*) 5,000 units PO DAILY [facility] Last Admin: 03/14/17 07:49 Dose: 5,000 units Cyanocobalamin (Vitamin B12 Tab*) 1,000 mcg PO DAILY [facility] Last Admin: 03/14/17 07:50 Dose: 1,000 mcg Diphenoxylate HCl/Atropine (Lomotil Tab*) 1 tab PO BID PRN PRN Reason: DIARRHEA Last Admin: 03/10/17 20:49 Dose: 1 tab Enoxaparin Sodium (Lovenox(*)) 40 mg SUBCUT Q24H [facility] Last Admin: 03/13/17 21:36 Dose: 40 mg Fentanyl (Duragesic Patch 75 Mcg/Hr*) 75 mcg TRANSDERM Q72HR [facility] Last Admin: 03/13/17 10:27 Dose: 75 mcg Ferrous Gluconate (Fergon Tab*) 324 mg PO BID [facility] Last Admin: 03/14/17 07:50 Dose: 324 mg Folic Acid (Folvite Tab*) 0.5 mg PO DAILY [facility] Last Admin: 03/14/17 07:49 Dose: 0.5 mg Piperacillin Sod/Tazobactam (Sod 3.375 gm/ Sodium Chloride) 100 mls @ 200 mls/ hr IVPB Q6H [facility] Last Admin: 03/14/17 15:30 Dose: 200 mls/hr Vancomycin HCl 1,000 mg/ (Sodium Chloride) 250 mls @ 166.667 mls/hr IVPB Q12H [facility] Last Admin: 03/14/17 10:40 Dose: 166.667 mls/hr Omeprazole (Prilosec Cap*) 40 mg PO DAILY@0730 [facility] Last Admin: 03/14/17 07:50 Dose: 40 mg Oxycodone HCl (Roxycodone Tab*) 10 mg PO Q4H PRN PRN Reason: PAIN Last Admin: 03/14/17 07:50 Dose: 10 mg Pharmacy Consult (Vancomycin Per Pharmacy*) 1 note FOLLOW UP . PRN PRN Reason: PER PROTOCOL Pharmacy Profile Note (Fentanyl Patch Check Q Shift) 0 note N/A 0700,1900 [facility] Last Admin: 03/14/17 07:11 Dose: 1 note Pharmacy Profile Note (Vancomycin Trough Check) 1 note FOLLOW UP ONCE ONE Stop: 03/16/17 09:31 Potassium Chloride (Klor Con Er Tab*) 10 meq PO DAILY [facility] Last Admin: 03/14/17 07:50 Dose: 10 meq Pregabalin (Lyrica Cap(*)) 150 mg PO TID [facility] Last Admin: 03/14/17 15:30 Dose: 150 mg Vital Signs 03/13/17 03/13/17 03/13/17 17:16 18:08 19:35 Temperature 100.8 F 99.5 F Pulse Rate 80 92 Respiratory 12 18 14 Rate Blood Pressure 137/59 161/68 (mmHg) O2 Sat by Pulse 96 93 Oximetry 03/13/17 03/13/17 03/13/17 21:00 21:16 21:31 Temperature 99.4 F Pulse Rate 88 Respiratory 18 20 18 Rate Blood Pressure 161/54 (mmHg) O2 Sat by Pulse 93 Oximetry 03/13/17 03/13/17 03/14/17 21:34 23:31 00:42 Temperature 100.0 F Pulse Rate 78 Respiratory 18 18 20 Rate Blood Pressure 157/72 (mmHg) O2 Sat by Pulse 93 Oximetry 03/14/17 03/14/17 03/14/17 03:18 07:15 07:28 Temperature 100.3 F 98.5 F Pulse Rate 76 73 Respiratory 18 18 Rate Blood Pressure 158/60 149/58 (mmHg) O2 Sat by Pulse 94 94 94 Oximetry 03/14/17 03/14/17 03/14/17 07:50 08:00 09:50 Temperature Pulse Rate Respiratory 16 16 16 Rate Blood Pressure (mmHg) O2 Sat by Pulse 94 Oximetry 03/14/17 03/14/17 03/14/17 11:39 15:30 15:39 Temperature 98.4 F 98.5 F Pulse Rate 78 85 Respiratory 18 16 16 Rate Blood Pressure 126/40 123/45 (mmHg) O2 Sat by Pulse 93 94 Oximetry Oxygen Devices in Use Now: None Appearance: chronically ill appearing Eyes: No Scleral Icterus, PERRLA Ears/Nose/Mouth/Throat: NL Teeth, Lips, Gums, Mucous Membranes Moist Neck: NL Appearance and Movements; NL JVP, Trachea Midline Respiratory: Symmetrical Chest Expansion and Respiratory Effort, Clear to Auscultation, - - no wheezing, rales or rhonchi appreciated. Cardiovascular: NL Sounds; No Murmurs; No JVD, RRR Abdominal: NL Sounds; No Tenderness; No Distention Extremities: No Edema, No Clubbing, Cyanosis Skin: - - wound vac covering sacrum ~5cm diameter Neurological: Alert and Oriented x 3, - - paraplegic at waist with no sensation or muscle stength. Lines/Tubes/Other Access: Clean, Dry and Intact Arriaga, Clean, Dry and Intact Other Access - Wound vac Result Diagrams: 03/14/17 13:30 03/14/17 13:30 Additional Lab and Data: Laboratory Results - last 24 hr 03/14/17 03/14/17 03/14/17 09:33 13:30 13:30 WBC 9.9 RBC 3.42 L Hgb 9.1 L Hct 28 L MCV 82 MCH 27 MCHC 33 RDW 17 H Plt Count 365 MPV 8 Neut % (Auto) 62.0 Lymph % (Auto) 20.5 L [place] % (Auto) 12.6 H Eos % (Auto) 3.7 Baso % (Auto) 1.2 Absolute Neuts (auto) 6.2 Absolute Lymphs (auto) 2.0 Absolute Monos (auto) 1.3 H Absolute Eos (auto) 0.4 Absolute Basos (auto) 0.1 Absolute Nucleated RBC 0.01 Nucleated RBC % 0.1 Sodium 142 Potassium 3.9 Chloride 112 H Carbon Dioxide 22 Anion Gap 8 BUN 24 Creatinine 1.46 H Est GFR ( Amer) 61.2 Est GFR (Non-Af Amer) 47.6 BUN/Creatinine Ratio 16.4 Glucose 139 H Calcium 9.4 Vancomycin Trough 15.0 Microbiology and Other Data: Microbiology 03/13/17 12:52 Wound Gram Stain - Final Tissue - Other Tissue Culture - Preliminary Enterococcus Faecalis Bacteroides Vulgatus Skin and Soft Tissue MRSA/MSSA (PCR - Final Mrsa Negative S.aureus Negative 03/09/17 22:00 Aerobic Blood Culture - Preliminary Blood Venous No Growth Day 4 Anaerobic Blood Culture - Preliminary No Growth Day 4 Blood Culture - Final 03/09/17 21:53 Aerobic Blood Culture - Preliminary Blood Venous No Growth Day 4 Anaerobic Blood Culture - Preliminary No Growth Day 4 Blood Culture - Final Assess/Plan/Problems-Billing Assessment: Mr. Merino is a 71 yo male with PMH significant for ependymoma s/p 4 surgeries c /b progressive paraparaplegia and debilitating parasthesias, neurogenic bladder with chronic indwelling arriaga, HTN, GERD, MATY with BiPAP, CAD, HLD and BPH with recent copious diarrhea since tx with cipro for UTI, who presented to the emergency room with sepsis and stage IV sacral decubitus ulcer. bilateral HCAP. On zosyn and vancomycin. s/p debridement and now with wound vac. - Patient Problems (1) Sacral decubitus ulcer, stage IV Current Visit: Yes Status: Acute Code(s): L89.154 - PRESSURE ULCER OF SACRAL REGION, STAGE 4 SNOMED Code(s): 597447029 Comment: - S/P OR sharp debridement 03/13 and bedside debridement 03/10 - Wound consult appreciated. Wound vacc applied, will try "veriflow" saline washes tomorrow, - appreciate Surgical assistance. - Plastic surgery Dr. Busch consulted, will talkd to Dr. Harmon. However seems like for wound flap may have to go to [place] or [facility] - Continue Zosyn (also on vancomycin), f/u deep tissue cultures - bacteroides, clostridium and E Faecalis from initial cultures and E Faecalis + Bacteroidies vulgatus in deep culture. - ID consulted (Carlie) as likely will need long course of antibiotics. - appreciate Nutrition recs to support healing (2) Pneumonia Current Visit: Yes Status: Acute Code(s): J18.9 - PNEUMONIA, UNSPECIFIED ORGANISM SNOMED Code(s): 389792811 Comment: Continue vancomycin and zosyn for HCAP. MRSA nares pending (3) Diarrhea Current Visit: No Status: Acute Code(s): R19.7 - DIARRHEA, UNSPECIFIED SNOMED Code(s): 51034465 Comment: Persistent diarrhea ~6 weeks after ciprofloxacin course for UTI. Prior to that was never an issue and patient was not incontinent of stool. Given sepsis presentation and continued low grade fevers will check for C-diff. Continue prn loperamide for now, stop if C-diff positive. probiotics/Culturelle Consider rectal tube if interferring with wound vacc and healing (4) Paraplegia Current Visit: Yes Status: Acute Code(s): G82.20 - PARAPLEGIA, UNSPECIFIED SNOMED Code(s): 40986033 Comment: frequent turning, skin care. Pain control with home fentanyl 75mcg patch and oxycodone 10mg q4 prn, acetaminophen 650mg q6 prn, lyrica. Planned for spinal stimulator implantation with Dr. Staton ([facility]) eventually (5) Sepsis Current Visit: Yes Status: Acute Comment: - Meeting SIRS criteria on admission (Tachycardia, tachypnea, fever, leukocytosis) - Pt not meeting qSofa criteria on admission or at this time - tachycardia and tachypnea resolved, has had low grade fevers - Leukocytosis improving (6) Anemia Current Visit: No Status: Chronic Code(s): D64.9 - ANEMIA, UNSPECIFIED SNOMED Code(s): 548646901 Comment: - No s/s of bleeding - Received 1 U PRBCs 03/11 - Continue iron supplementation, B12, folate. However likely anemia of chronic diseases with elevated ferritin 365, iron 29 last month. Status and Disposition: Inpatient, surgical floor. Attending: Madan Tolentino
[2017-03-14] MEDS: Albuterol/Ipratropium NEB.SOL* Albuterol 2.5 MG/Ipratropium 0.5 MG 3 ML INH PRN (17:55)
[2017-03-14] MEDS: Lactobacillus Acidophilu (GG)* 1 CAP CAP PO SCH (21:15)
[2017-03-14] MEDS: Enoxaparin(*) 40 MG/0.4 ML SYR SUBCUT SCH (21:16)
--- NOTE | 2017-03-14 23:00 | PN ---
Progress Note - Progress Note Date of Service: 03/14/17 Note: cross cover note notified for +c. diff added IV flagyl TID to medications to begin now
[2017-03-15] MEDS: metroNIDAZOLE IV 500 MG/100ML* 500 MG/100 ML BAG IVPB SCH ×2 (00:57→08:15)
[2017-03-15 06:15] LABS: Hematocrit 26 % (42-52); Hemoglobin 8.8 g/dl (14.0-18.0); Mean Corpuscular HGB Conc 33 g/dl (31-36); Mean Corpuscular Hemoglobin 27 pg (27-31); Mean Corpuscular Volume 80 fL (80-94); Mean Platelet Volume 7 um3 (7.4-10.4); Red Blood Count 3.29 10^6/ul (4.0-5.4); Red Cell Distribution Width 16 % (10.5-15)
[2017-03-15 06:29] LABS: Calcium 9.8 mg/dL (8.6-10.3); EGFR Non-African American 52.1 (>60); Potassium 3.7 mmol/L (3.5-5.0)
[2017-03-15] MEDS: fentaNYL Patch Check Q Shift 1 NOTE SCH ×2 (06:58→18:47)
[2017-03-15] MEDS: Omeprazole CAP* 20 MG PO SCH (08:16)
[2017-03-15] MEDS: Vancomycin(*) 1,000 MG in NS 0.9% 250 ML* 250 ML IVPB SCH ×2 (10:15→22:24)
[2017-03-15] MEDS: Potassium Chlor TAB* 10 MEQ TAB.ER PO SCH (10:17)
[2017-03-15] MEDS: Lactobacillus Acidophilu (GG)* 1 CAP CAP PO SCH ×2 (10:19→21:14)
[2017-03-15] MEDS: Aspirin Low Dose CHEW TAB* 81 MG PO SCH (10:19)
[2017-03-15] MEDS: Folic Acid TAB* 1 MG PO SCH (10:19)
[2017-03-15] MEDS: Cholecalciferol TAB* 1000 UNITS PO SCH (10:19)
[2017-03-15] MEDS: Cyanocobalamin TAB* 500 MCG PO SCH (10:20)
[2017-03-15] MEDS: Ferrous Gluconate TAB* 324 MG TAB PO SCH ×2 (10:20→21:15)
[2017-03-15] MEDS: Pregabalin CAP(*) 50 MG PO SCH ×3 (10:20→21:15)
--- NOTE | 2017-03-15 11:19 | PN ---
Progress Note - Progress Note Date of Service: 03/15/17 Note: Surgery Progress: S: no c/o; had + C diff (though states his BMs are less frequent); VAC in place- plan for change later this afternoon Current Medications Acetaminophen (Tylenol Tab*) 650 mg PO Q4H PRN PRN Reason: PAIN Albuterol/Ipratropium (Duoneb (Albuterol 2.5 Mg/Ipratropium 0.5 Mg)) 1 neb INH Q4H PRN PRN Reason: SOB/WHEEZING Last Admin: 03/14/17 17:55 Dose: 1 neb Aspirin (Aspirin Low Dose Tab*) 81 mg PO DAILY [facility] Last Admin: 03/15/17 10:19 Dose: 81 mg Cholecalciferol (Vitamin D Tab*) 5,000 units PO DAILY [facility] Last Admin: 03/15/17 10:19 Dose: 5,000 units Cyanocobalamin (Vitamin B12 Tab*) 1,000 mcg PO DAILY [facility] Last Admin: 03/15/17 10:20 Dose: 1,000 mcg Diphenoxylate HCl/Atropine (Lomotil Tab*) 1 tab PO BID PRN PRN Reason: DIARRHEA Last Admin: 03/10/17 20:49 Dose: 1 tab Enoxaparin Sodium (Lovenox(*)) 40 mg SUBCUT Q24H [facility] Last Admin: 03/14/17 21:16 Dose: 40 mg Fentanyl (Duragesic Patch 75 Mcg/Hr*) 75 mcg TRANSDERM Q72HR [facility] Last Admin: 03/13/17 10:27 Dose: 75 mcg Ferrous Gluconate (Fergon Tab*) 324 mg PO BID [facility] Last Admin: 03/15/17 10:20 Dose: 324 mg Folic Acid (Folvite Tab*) 0.5 mg PO DAILY [facility] Last Admin: 03/15/17 10:19 Dose: 0.5 mg Piperacillin Sod/Tazobactam (Sod 3.375 gm/ Sodium Chloride) 100 mls @ 200 mls/ hr IVPB Q6H [facility] Last Admin: 03/15/17 10:26 Dose: 200 mls/hr Vancomycin HCl 1,000 mg/ (Sodium Chloride) 250 mls @ 166.667 mls/hr IVPB Q12H [facility] Last Admin: 03/15/17 10:15 Dose: 166.667 mls/hr Metronidazole/Sodium Chloride (Flagyl 500 Mg Ivpb*) 500 mg in 100 mls @ 100 mls /hr IVPB Q8H [facility] Last Admin: 03/15/17 08:15 Dose: 100 mls/hr Lactobacillus Rhamnosus (Culturelle*) 1 cap PO BID [facility] Last Admin: 03/15/17 10:19 Dose: 1 cap Omeprazole (Prilosec Cap*) 40 mg PO DAILY@0730 [facility] Last Admin: 03/15/17 08:16 Dose: 40 mg Oxycodone HCl (Roxycodone Tab*) 10 mg PO Q4H PRN PRN Reason: PAIN Last Admin: 03/14/17 17:52 Dose: 10 mg Pharmacy Consult (Vancomycin Per Pharmacy*) 1 note FOLLOW UP . PRN PRN Reason: PER PROTOCOL Pharmacy Profile Note (Fentanyl Patch Check Q Shift) 0 note N/A 0700,1900 [facility] Last Admin: 03/15/17 06:58 Dose: 1 note Pharmacy Profile Note (Vancomycin Trough Check) 1 note FOLLOW UP ONCE ONE Stop: 03/16/17 09:31 Potassium Chloride (Klor Con Er Tab*) 10 meq PO DAILY [facility] Last Admin: 03/15/17 10:17 Dose: 10 meq Pregabalin (Lyrica Cap(*)) 150 mg PO TID [facility] Last Admin: 03/15/17 10:20 Dose: 150 mg O: Vital Signs - 8 hr 03/15/17 03/15/17 03/15/17 04:24 07:50 10:20 Temperature 98.2 F Pulse Rate 70 Respiratory 16 18 18 Rate Blood Pressure 145/67 (mmHg) O2 Sat by Pulse 98 Oximetry No PE performed (I will try to be available to look at wound at the time of VAC change) A/P: s/p debridement of sacral decub Cont abx per hosp Wound care- VAC
--- NOTE | 2017-03-15 15:05 | CONS ---
CONSULTATION REPORT: DATE OF CONSULTATION: 03/15/17. REQUESTING PHYSICIAN: Dr. Tolentino. CONSULTING SERVICE: Infectious Disease. REASON FOR CONSULTATION: Decubitus ulcer. IMPRESSION: 1. Sacral decubitus ulcer in the setting of neurologic deficits of the lower extremity. He has been less mobile over approximately the last 6 or 8 weeks. There is a concern that these developed during his last hospital stay, I would say it is more likely this is something that developed over or longer period of time and may have become more evident soon after the last hospital stay. He has had debridement of necrotic tissue, cultures deeper have grown Enterococcus bacteroides. I do suspect a wound infection and acute osteomyelitis. 2. He has had 6 to 8 weeks of diarrhea that has been getting better over the last couple of weeks. C. diff test was done last night was positive, I think is a false positive given the consistency of small semi-formed stools, which is not consistent with C. diff diarrhea. 3. Citrobacter in the urine is likely always colonized by his Fischer catheter. 4. Right-sided infiltrate, persistent since February, this could be a resolving infiltrate, could be underlying mass. RECOMMENDATIONS: Continue Zosyn, although decrease it to every 8 hours. We will stop his IV Flagyl. Follow his bowel movements. Also stop his antimotility agents. I discussed with his that it would be reasonable to consider a course of IV antibiotics initially for acute osteomyelitis of the sacrum. 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 He is able to transfer, but over the last 6 to 8 weeks he has had difficulty transferring and he has been less mobile, he has had episodes of unresponsiveness. This required initially hospital stay, was felt to be morphine- related sedation. He was discharged on oral antibiotics for a possible urinary tract infection, came back again in early February with unresponsiveness, treated for pneumonia with Levaquin. Throughout that time, he had been having diarrhea, which was quite voluminous and liquid. It is actually getting better over the last few days or couple of weeks actually with smaller semi-formed stools. He came into the hospital again with weakness. Chest x-ray showed a right-sided infiltrate. Urine culture grew citrobacter. He had a large decubitus ulcer, which has been debrided twice, once at the bedside and once in the OR. Cultures as above. It was near to bone, but clearly not all the way to bone. PAST MEDICAL HISTORY: 1. Ependymoma of the spine, status post multiple spinal surgeries. 2. Hypertension. 3. Gastroesophageal reflux disease. 4. Obstructive sleep apnea, on BiPAP. 5. Coronary artery disease. 6. Hyperlipidemia. 7. Benign prostatic hypertrophy. 8. Chronic Fischer catheter. 9. Asthma 10. Chronic kidney disease stage 3. 11. Status post 4 spine surgeries for ependymoma. 12. Status post appendectomy, complicated by bladder injury, status post repair. 13. Status post right carotid endarterectomy in 2015. 14. Left extremity paresis. MEDICATIONS: 1. Tylenol. 2. Albuterol. 3. Aspirin. 4. Cholecalciferol. 5. Cyanocobalamin. 6. Ferrous gluconate. 7. Folic acid. 8. Omeprazole. 9. Lactobacillus. 10. Zosyn 3.375 g IV every 6 hours. 11. Vancomycin 1 g every 12 hours. ALLERGIES: LIPITOR. FAMILY HISTORY: Noncontributory. SOCIAL HISTORY: He lives outside of [place] with his . No travel. REVIEW OF SYSTEMS: All negative to full review of systems, except as noted above. PHYSICAL EXAM: Vital Signs: Temperature 36.8, heart rate 70, respiratory rate 16, blood pressure 145/67, and O2 sat 98% on room air. In general, he is awake and not in distress. HEENT: There is no conjunctival hemorrhage. Oropharynx without lesions. Neck is supple without nuchal rigidity. Lymph Nodes: No inguinal, axillary, or epitrochlear lymphadenopathy. Heart has regular rate and rhythm without murmurs, rubs, or gallops. Lungs: Clear to auscultation bilaterally. Abdomen: Soft, nontender, nondistended. Bowel sounds present. Skin: There is no rash or splinter hemorrhages. There is a sacral decubitus ulcer, which is obscured by VAC dressing. There is no surrounding erythema. Neurologic: He does not have sensation in his lower extremities. LABORATORY DATA: Creatinine 1.3, CRP 230, white blood cell count 10, hemoglobin 8, platelets 356. Urinalysis shows no blood, nitrites, there is 1+ leukocyte esterase. Vancomycin trough 15. Please see impressions and recommendations as outlined above, which I have discussed with Dr. Tolentino. Thanks for asking me to see Mr. Martinezson in consultation. [id number]/[facility] #: [id number] VALERI
--- NOTE | 2017-03-15 15:58 | RAD ---
INDICATION: Pneumonia versus mass. COMPARISON: Comparison is made with a prior CT angiogram of the chest from November 09, 2014 and a prior chest x-ray study from March 12, 2017. TECHNIQUE: A CT scan of the chest was performed without intravenous contrast. Contiguous axial sections were obtained from the lung apices through the lung bases. Images were reconstructed in the coronal and sagittal planes. FINDINGS: There are small bilateral pleural effusions and small dependent bilateral lower lobe infiltrates. There are mildly enlarged mediastinal lymph nodes measuring up to 1.5 cm in transverse dimension in the aorticopulmonary window region. These are slightly more prominent than on the prior study. The heart is within normal limits in size. There are coronary artery calcifications present. No pericardial effusion is present. The thoracic aorta is normal in caliber. There is mild calcific plaque present. Images of the upper abdomen demonstrate cholelithiasis. No significant focal osseous abnormality is seen. IMPRESSION: 1. SMALL BILATERAL PLEURAL EFFUSIONS AND DEPENDENT BILATERAL LOWER LOBE INFILTRATES SUGGESTIVE OF ATELECTASIS. 2. MILDLY ENLARGED MEDIASTINAL LYMPH NODES. 3. CHOLELITHIASIS.
--- NOTE | 2017-03-15 19:22 | PN ---
Subjective Date of Service: 03/15/17 Interval History: Cdiff positive. IV flagyl started by crosscover. ID consultation obtained who thought false positive. CT chest obtained. Family History: Unchanged from Admission Social History: Unchanged from Admission Past Medical History: Unchanged from Admission Objective Active Medications: Acetaminophen (Tylenol Tab*) 650 mg PO Q4H PRN PRN Reason: PAIN Albuterol/Ipratropium (Duoneb (Albuterol 2.5 Mg/Ipratropium 0.5 Mg)) 1 neb INH Q4H PRN PRN Reason: SOB/WHEEZING Last Admin: 03/14/17 17:55 Dose: 1 neb Aspirin (Aspirin Low Dose Tab*) 81 mg PO DAILY [facility] Last Admin: 03/15/17 10:19 Dose: 81 mg Cholecalciferol (Vitamin D Tab*) 5,000 units PO DAILY [facility] Last Admin: 03/15/17 10:19 Dose: 5,000 units Cyanocobalamin (Vitamin B12 Tab*) 1,000 mcg PO DAILY [facility] Last Admin: 03/15/17 10:20 Dose: 1,000 mcg Enoxaparin Sodium (Lovenox(*)) 40 mg SUBCUT Q24H [facility] Last Admin: 03/14/17 21:16 Dose: 40 mg Fentanyl (Duragesic Patch 75 Mcg/Hr*) 75 mcg TRANSDERM Q72HR [facility] Last Admin: 03/13/17 10:27 Dose: 75 mcg Ferrous Gluconate (Fergon Tab*) 324 mg PO BID [facility] Last Admin: 03/15/17 10:20 Dose: 324 mg Folic Acid (Folvite Tab*) 0.5 mg PO DAILY [facility] Last Admin: 03/15/17 10:19 Dose: 0.5 mg Piperacillin Sod/Tazobactam (Sod 3.375 gm/ Sodium Chloride) 100 mls @ 200 mls/ hr IVPB Q6H [facility] Last Admin: 03/15/17 16:23 Dose: 200 mls/hr Vancomycin HCl 1,000 mg/ (Sodium Chloride) 250 mls @ 166.667 mls/hr IVPB Q12H [facility] Last Admin: 03/15/17 10:15 Dose: 166.667 mls/hr Lactobacillus Rhamnosus (Culturelle*) 1 cap PO BID [facility] Last Admin: 03/15/17 10:19 Dose: 1 cap Omeprazole (Prilosec Cap*) 40 mg PO DAILY@0730 [facility] Last Admin: 03/15/17 08:16 Dose: 40 mg Oxycodone HCl (Roxycodone Tab*) 10 mg PO Q4H PRN PRN Reason: PAIN Last Admin: 03/14/17 17:52 Dose: 10 mg Pharmacy Consult (Vancomycin Per Pharmacy*) 1 note FOLLOW UP . PRN PRN Reason: PER PROTOCOL Pharmacy Profile Note (Fentanyl Patch Check Q Shift) 0 note N/A [id number] [facility] Last Admin: 03/15/17 18:47 Dose: 1 note Pharmacy Profile Note (Vancomycin Trough Check) 1 note FOLLOW UP ONCE ONE Stop: 03/16/17 09:31 Potassium Chloride (Klor Con Er Tab*) 10 meq PO DAILY [facility] Last Admin: 03/15/17 10:17 Dose: 10 meq Pregabalin (Lyrica Cap(*)) 150 mg PO TID [facility] Last Admin: 03/15/17 13:44 Dose: 150 mg Vital Signs 03/14/17 03/14/17 03/14/17 19:22 19:41 19:52 Temperature 98.1 F Pulse Rate 87 Respiratory 16 16 16 Rate Blood Pressure 148/52 (mmHg) O2 Sat by Pulse 94 Oximetry 03/14/17 03/14/17 03/14/17 21:15 23:15 23:40 Temperature 98.5 F Pulse Rate 78 Respiratory 16 20 20 Rate Blood Pressure 168/72 (mmHg) O2 Sat by Pulse 96 Oximetry 03/15/17 03/15/17 03/15/17 04:24 07:50 08:00 Temperature 98.2 F 97.7 F Pulse Rate 70 Respiratory 16 18 Rate Blood Pressure 145/67 (mmHg) O2 Sat by Pulse 98 Oximetry 03/15/17 03/15/17 03/15/17 08:23 10:20 11:39 Temperature Pulse Rate 82 70 Respiratory 17 18 16 Rate Blood Pressure 140/57 (mmHg) O2 Sat by Pulse 96 98 Oximetry 03/15/17 03/15/17 03/15/17 11:40 12:19 13:44 Temperature 98.5 F Pulse Rate 84 Respiratory 16 18 Rate Blood Pressure 156/61 (mmHg) O2 Sat by Pulse 98 95 Oximetry 03/15/17 03/15/17 03/15/17 15:44 15:51 16:03 Temperature 100.5 F Pulse Rate 79 Respiratory 18 16 Rate Blood Pressure 171/79 (mmHg) O2 Sat by Pulse 95 Oximetry Oxygen Devices in Use Now: None Appearance: chronically ill appearing in no acute distress Ears/Nose/Mouth/Throat: NL Teeth, Lips, Gums, Mucous Membranes Moist Neck: NL Appearance and Movements; NL JVP, Trachea Midline Respiratory: Symmetrical Chest Expansion and Respiratory Effort, Clear to Auscultation Cardiovascular: NL Sounds; No Murmurs; No JVD, RRR, No Edema Abdominal: NL Sounds; No Tenderness; No Distention Extremities: No Edema, No Clubbing, Cyanosis Skin: - - wound vacc on sacral decub Neurological: Alert and Oriented x 3, - - paraplegic waist down Nutrition: Taking PO's Result Diagrams: 03/15/17 05:59 03/15/17 05:59 Additional Lab and Data: Laboratory Results - last 24 hr 03/15/17 03/15/17 05:59 05:59 WBC 10.0 RBC 3.29 L Hgb 8.8 L Hct 26 L MCV 80 MCH 27 MCHC 33 RDW 16 H Plt Count 356 MPV 7 L Neut % (Auto) 60.8 Lymph % (Auto) 18.9 L [place] % (Auto) 13.0 H Eos % (Auto) 6.1 H Baso % (Auto) 1.2 Absolute Neuts (auto) 6.1 Absolute Lymphs (auto) 1.9 Absolute Monos (auto) 1.3 H Absolute Eos (auto) 0.6 Absolute Basos (auto) 0.1 Absolute Nucleated RBC 0 Nucleated RBC % 0 Sodium 143 Potassium 3.7 Chloride 112 H Carbon Dioxide 26 Anion Gap 5 BUN 23 Creatinine 1.35 H Est GFR ( Amer) 67.0 Est GFR (Non-Af Amer) 52.1 BUN/Creatinine Ratio 17.0 Glucose 103 H Calcium 9.8 Microbiology and Other Data: Microbiology 03/13/17 12:52 Wound Gram Stain - Final Tissue - Other Tissue Culture - Preliminary Enterococcus Faecalis Bacteroides Vulgatus Skin and Soft Tissue MRSA/MSSA (PCR - Final Mrsa Negative S.aureus Negative 03/14/17 21:10 Stool Gross Appearance - Final Stool C. difficile DNA Amplification - Final 027 Presumptive NEGATIVE Toxigenic C.diff POSITIVE 03/09/17 22:00 Aerobic Blood Culture - Final Blood Venous No Growth Day 5 Anaerobic Blood Culture - Final No Growth Day 5 Blood Culture - Final 03/09/17 21:53 Aerobic Blood Culture - Final Blood Venous No Growth Day 5 Anaerobic Blood Culture - Final No Growth Day 5 Blood Culture - Final Assess/Plan/Problems-Billing Assessment: Mr. Merino is a 71 yo male with PMH significant for ependymoma s/p 4 surgeries c /b progressive paraparaplegia and debilitating parasthesias, neurogenic bladder with chronic indwelling arriaga, HTN, GERD, MATY with BiPAP, CAD, HLD and BPH with recent copious diarrhea since tx with cipro for UTI, who presented to the emergency room with sepsis and stage IV sacral decubitus ulcer. Bilateral HCAP (improved on CT scan). On zosyn and vancomycin. s/p debridement and now with wound vac. Cdiff was positive but ID thinks false positive - Patient Problems (1) Sacral decubitus ulcer, stage IV Current Visit: Yes Status: Acute Code(s): L89.154 - PRESSURE ULCER OF SACRAL REGION, STAGE 4 SNOMED Code(s): 762644793 Comment: - S/P OR sharp debridement 03/13 and bedside debridement 03/10 - Wound consult appreciated. Wound vacc applied, will try "veriflow" saline washes today - appreciate Surgical assistance. - Plastic surgery Dr. Busch consulted, will talkd to Dr. Harmon. However seems like for wound flap may have to go to [place] or [place] in [place] - Continue Zosyn (also on vancomycin), f/u deep tissue cultures - bacteroides, clostridium and E Faecalis from initial cultures and E Faecalis + Bacteroidies vulgatus in deep culture. - appreciate ID recs, likely will need long course of IV antibiotics for potential osteo. - appreciate Nutrition recs to support healing (2) Pneumonia Current Visit: Yes Status: Acute Code(s): J18.9 - PNEUMONIA, UNSPECIFIED ORGANISM SNOMED Code(s): 610589961 Comment: Continue vancomycin and zosyn for HCAP. MRSA nares pending (3) Diarrhea Current Visit: No Status: Acute Code(s): R19.7 - DIARRHEA, UNSPECIFIED SNOMED Code(s): 00901869 Comment: Persistent diarrhea ~6 weeks after ciprofloxacin course for UTI. Prior to that was never an issue and patient was not incontinent of stool. Given sepsis presentation and continued low grade fevers C-diff was checked and postive. ID thinks false positive, stopped flagyl. monitor stool. probiotics/Culturelle Consider rectal tube if interferring with wound vacc and healing (4) Paraplegia Current Visit: Yes Status: Acute Code(s): G82.20 - PARAPLEGIA, UNSPECIFIED SNOMED Code(s): 89260970 Comment: frequent turning, skin care. Pain control with home fentanyl 75mcg patch and oxycodone 10mg q4 prn, acetaminophen 650mg q6 prn, lyrica. Planned for spinal stimulator implantation with Dr. Staton ([facility]) eventually (5) Sepsis Current Visit: Yes Status: Acute Comment: - Meeting SIRS criteria on admission (Tachycardia, tachypnea, fever, leukocytosis) - Pt not meeting qSofa criteria on admission or at this time - tachycardia and tachypnea resolved, has had low grade fevers - Leukocytosis resolved (6) Anemia Current Visit: No Status: Chronic Code(s): D64.9 - ANEMIA, UNSPECIFIED SNOMED Code(s): 417733859 Comment: - No s/s of bleeding - Received 1 U PRBCs 03/11 - Continue iron supplementation, B12, folate. However likely anemia of chronic diseases with elevated ferritin 365, iron 29 last month. Status and Disposition: Inpatient, surgical floor. Target discharge ?sunday Attending: Madan Tolentino
[2017-03-15] MEDS: Enoxaparin(*) 40 MG/0.4 ML SYR SUBCUT SCH (19:55)
[2017-03-15] MEDS ORDERED: Ondansetron INJ* 2 MG/ML VIAL IV PRN (21:32)
[2017-03-15] MEDS ORDERED: Ondansetron INJ* 2 MG/ML VIAL ONE (21:34)
[2017-03-16] MEDS: hydrALAZINE IV* 20 MG/ML VIAL IV PRN ×2 (05:17→16:49)
[2017-03-16] MEDS: Pregabalin CAP(*) 50 MG PO SCH ×4 (09:01→21:42)
[2017-03-16] MEDS: Omeprazole CAP* 20 MG PO SCH (09:01)
[2017-03-16] MEDS: Cyanocobalamin TAB* 500 MCG PO SCH (09:02)
[2017-03-16] MEDS: Cholecalciferol TAB* 1000 UNITS PO SCH (09:02)
[2017-03-16] MEDS: Folic Acid TAB* 1 MG PO SCH (09:02)
[2017-03-16] MEDS: Ferrous Gluconate TAB* 324 MG TAB PO SCH ×2 (09:02→21:42)
[2017-03-16] MEDS: Potassium Chlor TAB* 10 MEQ TAB.ER PO SCH (09:02)
[2017-03-16] MEDS: Aspirin Low Dose CHEW TAB* 81 MG PO SCH (09:02)
[2017-03-16] MEDS: Lactobacillus Acidophilu (GG)* 1 CAP CAP PO SCH ×2 (09:02→21:42)
[2017-03-16] MEDS: Furosemide TAB* 40 MG PO SCH ×2 (09:03→16:49)
[2017-03-16] MEDS ORDERED: Vancomycin Trough Check NOTE FOLLOW UP ONE (09:30)
[2017-03-16] MEDS: fentaNYL PATCH 75 MCG/HR* 75 MCG TRANSDERM SCH (09:32)
[2017-03-16] MEDS: Vancomycin(*) 1,000 MG in NS 0.9% 250 ML* 250 ML IVPB SCH (09:38)
[2017-03-16 10:16] LABS: Hematocrit 33 % (42-52); Hemoglobin 10.8 g/dl (14.0-18.0); Mean Corpuscular HGB Conc 33 g/dl (31-36); Mean Corpuscular Hemoglobin 26 pg (27-31); Mean Corpuscular Volume 80 fL (80-94); Mean Platelet Volume 7 um3 (7.4-10.4); Red Blood Count 4.16 10^6/ul (4.0-5.4); Red Cell Distribution Width 17 % (10.5-15); White Blood Count 11.3 10^3/ul (3.5-10.8)
[2017-03-16 10:39] LABS: BUN/Creatinine Ratio 16.3 (8-20); Calcium 10.3 mg/dL (8.6-10.3); EGFR Non-African American 52.1 (>60); Potassium 3.7 mmol/L (3.5-5.0)
[2017-03-16] MEDS: fentaNYL Patch Check Q Shift 1 NOTE SCH ×2 (11:39→19:01)
--- NOTE | 2017-03-16 12:50 | PN ---
Progress Note - Progress Note Date of Service: 03/15/17 Note: Surgery Note Addendum: S: wound check at time of VAC change 03/15/17 O: wound was not measured by myself, but is approximately 8 x 12 cm w/ ~ 3cm undermining in the inferior aspect. There is some shaggy debris over the sacrum ; otherwise the wound is generally clean and viable. The surrounding skin does have some mild erythema and maceration. Nursing is applying barrier cream for protection.
--- NOTE | 2017-03-16 16:49 | PN ---
Subjective Date of Service: 03/16/17 Interval History: Veriflow applied yesterday. 3 loose but not watery stools. CT chest w/ atelectasis but no clear evidence of pneumonia (vancomycin stopped). Denies SOB or cough. No chest pain. Tmax 100.3 overnight. Hgb improved to 10.8. reports hx of h pylori infection last year that was treated. Was planning f/u with [facility]. Hypertensive to 198/98 and got prn hydralazine. Family History: Unchanged from Admission Social History: Unchanged from Admission Past Medical History: Unchanged from Admission Objective Active Medications: Acetaminophen (Tylenol Tab*) 650 mg PO Q4H PRN PRN Reason: PAIN Last Admin: 03/15/17 21:41 Dose: 650 mg Albuterol/Ipratropium (Duoneb (Albuterol 2.5 Mg/Ipratropium 0.5 Mg)) 1 neb INH Q4H PRN PRN Reason: SOB/WHEEZING Last Admin: 03/14/17 17:55 Dose: 1 neb Aspirin (Aspirin Low Dose Tab*) 81 mg PO DAILY [facility] Last Admin: 03/16/17 09:02 Dose: 81 mg Cholecalciferol (Vitamin D Tab*) 5,000 units PO DAILY [facility] Last Admin: 03/16/17 09:02 Dose: 5,000 units Cyanocobalamin (Vitamin B12 Tab*) 1,000 mcg PO DAILY [facility] Last Admin: 03/16/17 09:02 Dose: 1,000 mcg Enoxaparin Sodium (Lovenox(*)) 40 mg SUBCUT Q24H [facility] Last Admin: 03/15/17 19:55 Dose: 40 mg Fentanyl (Duragesic Patch 75 Mcg/Hr*) 75 mcg TRANSDERM Q72HR [facility] Last Admin: 03/16/17 09:32 Dose: 75 mcg Ferrous Gluconate (Fergon Tab*) 324 mg PO BID [facility] Last Admin: 03/16/17 09:02 Dose: 324 mg Folic Acid (Folvite Tab*) 0.5 mg PO DAILY [facility] Last Admin: 03/16/17 09:02 Dose: 0.5 mg Furosemide (Lasix Tab*) 40 mg PO 0800,1700 [facility] Last Admin: 03/16/17 09:03 Dose: 40 mg Hydralazine HCl (Apresoline Iv*) 10 mg IV Q4H PRN PRN Reason: Systolic >170 Last Admin: 03/16/17 05:17 Dose: 10 mg Piperacillin Sod/Tazobactam (Sod 3.375 gm/ Sodium Chloride) 100 mls @ 25 mls/ hr IVPB 0600,1400,2200 [facility] Last Admin: 03/16/17 14:07 Dose: 25 mls/hr Lactobacillus Rhamnosus (Culturelle*) 1 cap PO BID [facility] Last Admin: 03/16/17 09:02 Dose: 1 cap Omeprazole (Prilosec Cap*) 40 mg PO DAILY@0730 [facility] Last Admin: 03/16/17 09:01 Dose: 40 mg Ondansetron HCl (Zofran Inj*) 4 mg IV Q6H PRN PRN Reason: NAUSEA Oxycodone HCl (Roxycodone Tab*) 10 mg PO Q4H PRN PRN Reason: PAIN Last Admin: 03/14/17 17:52 Dose: 10 mg Pharmacy Profile Note (Fentanyl Patch Check Q Shift) 0 note N/A 0700,1900 [facility] Last Admin: 03/16/17 11:39 Dose: Not Given Potassium Chloride (Klor Con Er Tab*) 10 meq PO DAILY [facility] Last Admin: 03/16/17 09:02 Dose: 10 meq Pregabalin (Lyrica Cap(*)) 150 mg PO TID [facility] Last Admin: 03/16/17 16:44 Dose: Not Given Vital Signs 03/15/17 03/15/17 03/15/17 20:00 21:15 21:37 Temperature 100.2 F Pulse Rate 93 Respiratory 16 16 Rate Blood Pressure (mmHg) O2 Sat by Pulse 97 Oximetry 03/15/17 03/16/17 03/16/17 23:15 00:17 04:04 Temperature 98.2 F Pulse Rate 84 94 Respiratory 16 Rate Blood Pressure 161/76 (mmHg) O2 Sat by Pulse 91 95 Oximetry 03/16/17 03/16/17 03/16/17 04:27 04:35 06:08 Temperature 100.3 F Pulse Rate 89 Respiratory 17 Rate Blood Pressure 198/98 175/78 (mmHg) O2 Sat by Pulse 94 Oximetry 03/16/17 03/16/17 03/16/17 08:00 09:01 11:01 Temperature 98.4 F Pulse Rate 77 Respiratory 16 16 16 Rate Blood Pressure 142/52 (mmHg) O2 Sat by Pulse 96 Oximetry 03/16/17 03/16/17 03/16/17 11:37 15:01 15:02 Temperature 98.0 F Pulse Rate 94 95 Respiratory 16 16 Rate Blood Pressure 150/41 (mmHg) O2 Sat by Pulse 95 94 95 Oximetry Oxygen Devices in Use Now: None Appearance: Chronically ill appearing, in no acute distress. Eyes: No Scleral Icterus, PERRLA Ears/Nose/Mouth/Throat: NL Teeth, Lips, Gums, Mucous Membranes Moist Neck: NL Appearance and Movements; NL JVP, Trachea Midline Respiratory: Symmetrical Chest Expansion and Respiratory Effort - slight rales at right base (laterally) Cardiovascular: NL Sounds; No Murmurs; No JVD, RRR Extremities: - - slight edema Skin: - - ~5cm wound fac on sacral decub. Saline infusing. Neurological: Alert and Oriented x 3, - - paraplegic below waist. Lines/Tubes/Other Access: Clean, Dry and Intact Arriaga Nutrition: Taking PO's Result Diagrams: 03/16/17 09:49 03/16/17 09:49 Additional Lab and Data: Laboratory Results - last 24 hr 03/16/17 03/16/17 03/16/17 09:49 09:49 09:49 WBC 11.3 H RBC 4.16 Hgb 10.8 L Hct 33 L MCV 80 MCH 26 L MCHC 33 RDW 17 H Plt Count 483 H D MPV 7 L Neut % (Auto) 67.5 Lymph % (Auto) 19.1 L [place] % (Auto) 9.6 H Eos % (Auto) 2.6 Baso % (Auto) 1.2 Absolute Neuts (auto) 7.7 Absolute Lymphs (auto) 2.2 Absolute Monos (auto) 1.1 H Absolute Eos (auto) 0.3 Absolute Basos (auto) 0.1 Absolute Nucleated RBC 0.01 Nucleated RBC % 0.1 Sodium 143 Potassium 3.7 Chloride 110 Carbon Dioxide 25 Anion Gap 8 BUN 22 Creatinine 1.35 H Est GFR ( Amer) 67.0 Est GFR (Non-Af Amer) 52.1 BUN/Creatinine Ratio 16.3 Glucose 138 H Calcium 10.3 Vancomycin Trough 24.4 Microbiology and Other Data: Microbiology 03/13/17 12:52 Wound Gram Stain - Final Tissue - Other Tissue Culture - Preliminary Enterococcus Faecalis Bacteroides Vulgatus Skin and Soft Tissue MRSA/MSSA (PCR - Final Mrsa Negative S.aureus Negative Assess/Plan/Problems-Billing Assessment: Mr. Merino is a 71 yo male with PMH significant for ependymoma s/p 4 surgeries and spinal fractures after fall c/b progressive paraplegia and debilitating parasthesias, neurogenic bladder with chronic indwelling arriaga, HTN, GERD, MATY with BiPAP, CAD, HLD and BPH with recent diarrhea since tx with cipro for UTI, who presented to the emergency room with sepsis and stage IV sacral decubitus ulcer. On zosyn. s/p vancomycin for suspected HCAP, recent CT chest w/ atelectasis. s/p debridement and now with wound vac w/ saline infusion. Cdiff was positive but ID thinks false positive given character of stool. Low grade fevers. - Patient Problems (1) Sacral decubitus ulcer, stage IV Current Visit: Yes Status: Acute Code(s): L89.154 - PRESSURE ULCER OF SACRAL REGION, STAGE 4 SNOMED Code(s): 392990725 Comment: - S/P OR sharp debridement 03/13 and bedside debridement 03/10 - Wound consult appreciated. Wound vacc applied w/ "veriflow" saline washes ( placed 03/15), possible change 03/17 vs 03/19. - appreciate Surgical assistance. - Plastic surgery Dr. Busch consulted, will talk to Dr. Harmon. However seems like for wound flap may have to go to [place] or [place] in [place] - Continue Zosyn, likely multiweek course for potential osteo. PICC before discharge - bacteroides, clostridium and E Faecalis from initial cultures and E Faecalis + Bacteroidies vulgatus in deep culture. - appreciate Nutrition recs to support healing (2) Pneumonia Current Visit: Yes Status: Acute Code(s): J18.9 - PNEUMONIA, UNSPECIFIED ORGANISM SNOMED Code(s): 493799179 Comment: suspected HCAP based on SOB and CXR R>L infiltrates. s/p 3 days vancomycin (already on zosyn) but stopped 03/[address] chest more consistent with atelectasis. Appreciate ID recs. MRSA nares pending (?still) (3) Diarrhea Current Visit: No Status: Acute Code(s): R19.7 - DIARRHEA, UNSPECIFIED SNOMED Code(s): 39559180 Comment: Persistent diarrhea ~6 weeks after ciprofloxacin course for UTI. Prior to that was never an issue and patient was not incontinent of stool. Given sepsis presentation and continued low grade fevers C-diff was checked and postive. ID thinks false positive, stopped flagyl. monitor stool probiotics/Culturelle Consider rectal tube if interferring with wound vacc and healing (4) Paraplegia Current Visit: Yes Status: Acute Code(s): G82.20 - PARAPLEGIA, UNSPECIFIED SNOMED Code(s): 85034220 Comment: frequent turning, skin care. Pain control with home fentanyl 75mcg patch and oxycodone 10mg q4 prn, acetaminophen 650mg q6 prn, lyrica. Planned for spinal stimulator implantation with Dr. Staton ([place]) eventually (5) Sepsis Current Visit: Yes Status: Acute Comment: - Meeting SIRS criteria on admission (Tachycardia, tachypnea, fever, leukocytosis) - Pt not meeting qSofa criteria on admission or at this time - tachycardia and tachypnea resolved - Leukocytosis and fevers (low grade) currently. (6) Anemia Current Visit: No Status: Chronic Code(s): D64.9 - ANEMIA, UNSPECIFIED SNOMED Code(s): 447525942 Comment: - improved - Hx of h pyrlori infection last year s/p treatment - No s/s of bleeding - Received 1 U PRBCs 03/11 - Continue iron supplementation, B12, folate. However likely anemia of chronic diseases with elevated ferritin 365, iron 29 last month. Status and Disposition: Inpatient, surgical floor. [facility] discharge Monday 03/19. PMRU declined so likely to home. Attending: Madan Tolentino
[2017-03-16] MEDS: Enoxaparin(*) 40 MG/0.4 ML SYR SUBCUT SCH (21:43)
[2017-03-17] MEDS: hydrALAZINE IV* 20 MG/ML VIAL IV PRN (00:02)
[2017-03-17] MEDS: fentaNYL Patch Check Q Shift 1 NOTE SCH ×2 (07:23→18:53)
[2017-03-17] MEDS: Omeprazole CAP* 20 MG PO SCH (07:38)
[2017-03-17 08:18] LABS: Hematocrit 30 % (42-52); Hemoglobin 9.9 g/dl (14.0-18.0); Mean Corpuscular HGB Conc 33 g/dl (31-36); Mean Corpuscular Hemoglobin 26 pg (27-31); Mean Corpuscular Volume 80 fL (80-94); Mean Platelet Volume 8 um3 (7.4-10.4); Red Blood Count 3.73 10^6/ul (4.0-5.4); Red Cell Distribution Width 17 % (10.5-15); White Blood Count 10.5 10^3/ul (3.5-10.8)
[2017-03-17 08:32] LABS: BUN/Creatinine Ratio 15.3 (8-20); EGFR African American 65.9 (>60); EGFR Non-African American 51.2 (>60); Potassium 3.7 mmol/L (3.5-5.0)
[2017-03-17] MEDS: Lactobacillus Acidophilu (GG)* 1 CAP CAP PO SCH ×2 (08:51→20:23)
[2017-03-17] MEDS: Folic Acid TAB* 1 MG PO SCH (08:51)
[2017-03-17] MEDS: Furosemide TAB* 40 MG PO SCH ×2 (08:52→17:41)
[2017-03-17] MEDS: Ferrous Gluconate TAB* 324 MG TAB PO SCH ×2 (08:54→20:22)
[2017-03-17] MEDS: Cyanocobalamin TAB* 500 MCG PO SCH (08:55)
[2017-03-17] MEDS: Potassium Chlor TAB* 10 MEQ TAB.ER PO SCH (08:56)
[2017-03-17] MEDS: Pregabalin CAP(*) 50 MG PO SCH ×3 (08:57→20:22)
[2017-03-17] MEDS: Aspirin Low Dose CHEW TAB* 81 MG PO SCH (08:58)
[2017-03-17] MEDS: Cholecalciferol TAB* 1000 UNITS PO SCH (08:58)
--- NOTE | 2017-03-17 16:58 | PN ---
Subjective Date of Service: 03/17/17 Interval History: patient reports he is feeling better today - he experienced an episode of vomiting last night with nausea that resolved overnight with some mild nausea returning this am (no further vomiting), now nausea resolved this evening. Denies abdominal pain. Diarrhea is resolving - 2 formed small stools today. Reports little appetite. No fever or chills. Denies SOB/CP. Reports his pain is controlled at bedside during visit with lots of questions. She reports hx of bleeding ulcer in the past. No current signs of bleeding - denies bloody/melena stools. Family History: Unchanged from Admission Social History: Unchanged from Admission Past Medical History: Unchanged from Admission Objective Active Medications: Acetaminophen (Tylenol Tab*) 650 mg PO Q4H PRN PRN Reason: PAIN Last Admin: 03/15/17 21:41 Dose: 650 mg Albuterol/Ipratropium (Duoneb (Albuterol 2.5 Mg/Ipratropium 0.5 Mg)) 1 neb INH Q4H PRN PRN Reason: SOB/WHEEZING Last Admin: 03/14/17 17:55 Dose: 1 neb Aspirin (Aspirin Low Dose Tab*) 81 mg PO DAILY [facility] Last Admin: 03/17/17 08:58 Dose: 81 mg Cholecalciferol (Vitamin D Tab*) 5,000 units PO DAILY [facility] Last Admin: 03/17/17 08:58 Dose: 5,000 units Cyanocobalamin (Vitamin B12 Tab*) 1,000 mcg PO DAILY [facility] Last Admin: 03/17/17 08:55 Dose: 1,000 mcg Enoxaparin Sodium (Lovenox(*)) 40 mg SUBCUT Q24H [facility] Last Admin: 03/16/17 21:43 Dose: 40 mg Ferrous Gluconate (Fergon Tab*) 324 mg PO BID [facility] Last Admin: 03/17/17 08:54 Dose: 324 mg Folic Acid (Folvite Tab*) 0.5 mg PO DAILY [facility] Last Admin: 03/17/17 08:51 Dose: 0.5 mg Furosemide (Lasix Tab*) 40 mg PO 0800,1700 [facility] Last Admin: 03/17/17 08:52 Dose: 40 mg Hydralazine HCl (Apresoline Iv*) 10 mg IV Q4H PRN PRN Reason: Systolic >170 Last Admin: 03/17/17 00:02 Dose: 10 mg Piperacillin Sod/Tazobactam (Sod 3.375 gm/ Sodium Chloride) 100 mls @ 25 mls/ hr IVPB 0600,1400,2200 [facility] Last Admin: 03/17/17 14:47 Dose: 25 mls/hr Lactobacillus Rhamnosus (Culturelle*) 1 cap PO BID [facility] Last Admin: 03/17/17 08:51 Dose: 1 cap Omeprazole (Prilosec Cap*) 40 mg PO DAILY@0730 [facility] Last Admin: 03/17/17 07:38 Dose: 40 mg Ondansetron HCl (Zofran Inj*) 4 mg IV Q6H PRN PRN Reason: NAUSEA Last Admin: 03/16/17 22:26 Dose: 4 mg Pharmacy Profile Note (Fentanyl Patch Check Q Shift) 0 note N/A 0700,1900 [facility] Last Admin: 03/17/17 07:23 Dose: 1 note Potassium Chloride (Klor Con Er Tab*) 10 meq PO DAILY [facility] Last Admin: 03/17/17 08:56 Dose: 10 meq Pregabalin (Lyrica Cap(*)) 150 mg PO TID [facility] Last Admin: 03/17/17 14:47 Dose: 150 mg Vital Signs 03/16/17 03/16/17 03/16/17 19:32 21:30 21:42 Temperature 98.6 F Pulse Rate 88 Respiratory 18 16 16 Rate Blood Pressure 153/55 (mmHg) O2 Sat by Pulse 96 Oximetry 03/16/17 03/16/17 03/16/17 23:16 23:23 23:42 Temperature 99.1 F Pulse Rate 93 92 Respiratory 14 14 Rate Blood Pressure 191/85 176/71 (mmHg) O2 Sat by Pulse 93 Oximetry 03/17/17 03/17/17 03/17/17 01:25 03:41 03:43 Temperature 98.6 F Pulse Rate 93 78 Respiratory 16 Rate Blood Pressure 154/62 178/78 160/72 (mmHg) O2 Sat by Pulse 95 Oximetry 03/17/17 03/17/17 03/17/17 08:00 08:06 08:57 Temperature 98.7 F Pulse Rate 84 Respiratory 16 14 17 Rate Blood Pressure 185/85 (mmHg) O2 Sat by Pulse 97 Oximetry 03/17/17 03/17/17 03/17/17 10:57 12:20 14:47 Temperature 98.1 F Pulse Rate 71 Respiratory 16 16 16 Rate Blood Pressure 145/51 (mmHg) O2 Sat by Pulse 96 Oximetry 03/17/17 15:47 Temperature 98.7 F Pulse Rate 79 Respiratory 14 Rate Blood Pressure 161/63 (mmHg) O2 Sat by Pulse 97 Oximetry Oxygen Devices in Use Now: None Appearance: chronically ill appearing 71 yo male A+O x3 in NAD Eyes: No Scleral Icterus, PERRLA Ears/Nose/Mouth/Throat: NL Teeth, Lips, Gums, Mucous Membranes Moist Respiratory: Symmetrical Chest Expansion and Respiratory Effort, Clear to Auscultation Cardiovascular: NL Sounds; No Murmurs; No JVD, RRR, - - trace LE edema b/l Abdominal: - - obese, soft, nondistended, NL BS x4 Extremities: No Clubbing, Cyanosis Skin: - - sacral decub with wound vac intact - no signs of redness surround wound vac noted Neurological: Alert and Oriented x 3, - - paraplegia Lines/Tubes/Other Access: Clean, Dry and Intact Arriaga - clear yellow urine, Clean, Dry and Intact Peripheral IV Nutrition: Taking PO's Result Diagrams: 03/17/17 07:47 03/17/17 07:47 Additional Lab and Data: Laboratory Results - last 24 hr 03/16/17 03/16/17 03/16/17 09:49 09:49 09:49 WBC 11.3 H RBC 4.16 Hgb 10.8 L Hct 33 L MCV 80 MCH 26 L MCHC 33 RDW 17 H Plt Count 483 H D MPV 7 L Neut % (Auto) 67.5 Lymph % (Auto) 19.1 L [place] % (Auto) 9.6 H Eos % (Auto) 2.6 Baso % (Auto) 1.2 Absolute Neuts (auto) 7.7 Absolute Lymphs (auto) 2.2 Absolute Monos (auto) 1.1 H Absolute Eos (auto) 0.3 Absolute Basos (auto) 0.1 Absolute Nucleated RBC 0.01 Nucleated RBC % 0.1 Sodium 143 Potassium 3.7 Chloride 110 Carbon Dioxide 25 Anion Gap 8 BUN 22 Creatinine 1.35 H Est GFR ( Amer) 67.0 Est GFR (Non-Af Amer) 52.1 BUN/Creatinine Ratio 16.3 Glucose 138 H Calcium 10.3 Vancomycin Trough 24.4 Microbiology and Other Data: Microbiology 03/13/17 12:52 Wound Gram Stain - Final Tissue - Other Tissue Culture - Preliminary Enterococcus Faecalis Bacteroides Vulgatus Skin and Soft Tissue MRSA/MSSA (PCR - Final Mrsa Negative S.aureus Negative Assess/Plan/Problems-Billing Assessment: Mr. Merino is a 71 yo male with PMH significant for ependymoma s/p 4 surgeries and spinal fractures after fall c/b progressive paraplegia and debilitating parasthesias, neurogenic bladder with chronic indwelling arriaga, HTN, GERD, MATY with BiPAP, CAD, HLD and BPH with recent diarrhea since tx with cipro for UTI, who presented to the emergency room with sepsis and stage IV sacral decubitus ulcer. On zosyn. s/p vancomycin for suspected HCAP, recent CT chest w/ atelectasis. s/p debridement and now with wound vac w/ saline infusion. Cdiff was positive but ID thinks false positive given character of stool. Low grade fevers. - Patient Problems (1) Sepsis Comment: - Meeting SIRS criteria on admission (Tachycardia, tachypnea, fever, leukocytosis) - Pt not meeting qSofa criteria on admission or at this time - tachycardia and tachypnea resolved - Leukocytosis and fevers resolved (2) Sacral decubitus ulcer, stage IV Comment: - S/P OR sharp debridement 03/13 and bedside debridement 03/10 - Wound consult appreciated. Wound vacc applied w/ "veriflow" saline washes ( placed 03/15), possible change 03/18 - appreciate Surgical assistance. - Plastic surgery Dr. Busch consulted, will talk to Dr. Harmon. However seems like for wound flap may have to go to [place] or [place] in [place] - Appreciate ID consult. Continue Zosyn, likely multiweek course for potential osteo. PICC before discharge - bacteroides, clostridium and E Faecalis from initial cultures and E Faecalis + Bacteroidies vulgatus in deep culture. - appreciate Nutrition recs to support healing (3) Diarrhea Comment: Persistent diarrhea ~6 weeks after ciprofloxacin course for UTI. Prior to that was never an issue and patient was not incontinent of stool. Given sepsis presentation and continued low grade fevers C-diff was checked and postive. ID thinks false positive, stopped flagyl. monitor stool which are currently improving Continue probiotics/Culturelle (4) CAD (coronary artery disease) Comment: - asymptomatic - Continue ASA. (5) Pneumonia Comment: suspected HCAP based on SOB and CXR R>L infiltrates. s/p 3 days vancomycin (already on zosyn) but stopped 03/[address] chest more consistent with atelectasis. Appreciate ID consult (6) CKD (chronic kidney disease), stage III Comment: - Creatinine within baseline - Baseline creatinine 2.1 to 2.5 - Avoid nephrotoxic medications (7) Chronic back pain Comment: - Secondary to ependymoma - Continue oxycodone, pregabalin and fentanyl patch (8) HTN (hypertension) Comment: - Normotensive - Continue furosemide and amlodipine (9) MATY (obstructive sleep apnea) Comment: - Continue home BiPAP use. (10) Paraplegia Comment: frequent turning, skin care. Pain control with home fentanyl 75mcg patch and oxycodone 10mg q4 prn, acetaminophen 650mg q6 prn, lyrica. Planned for spinal stimulator implantation with Dr. Staton ([facility]) eventually (11) Anemia Comment: - improved - Hx of h pyrlori infection last year s/p treatment - No s/s of bleeding - Received 1 U PRBCs 03/11 - Continue iron supplementation, B12, folate. However likely anemia of chronic diseases with elevated ferritin 365, iron 29 last month. -send stool for occult blood with hx of bleeding gastric ulcer (12) Full code status (13) DVT prophylaxis Comment: - Lovenox Status and Disposition: Inpatient, surgical floor. [facility] discharge Monday 03/19. PMRU declined; per she has a meeting with Dr. Swanson Sunday to discuss PMRU decline. does not feel that she can care for him at home by herself and refuses correction placement for rehab
[2017-03-17] MEDS: Enoxaparin(*) 40 MG/0.4 ML SYR SUBCUT SCH (20:22)
[2017-03-18] MEDS: fentaNYL Patch Check Q Shift 1 NOTE SCH ×2 (07:18→18:34)
--- NOTE | 2017-03-18 08:51 | PN ---
Progress Note - Progress Note Date of Service: 03/18/17 Note: Surgery Mr. Merino had the VAC changed today. Vital Signs 03/17/17 03/17/17 03/17/17 08:57 10:57 12:20 Temperature 98.1 F Pulse Rate 71 Respiratory 17 16 16 Rate Blood Pressure 145/51 (mmHg) O2 Sat by Pulse 96 Oximetry 03/17/17 03/17/17 03/17/17 14:47 15:47 16:00 Temperature 98.7 F Pulse Rate 79 Respiratory 16 14 Rate Blood Pressure 161/63 (mmHg) O2 Sat by Pulse 97 97 Oximetry 03/17/17 03/17/17 03/17/17 16:47 19:42 20:22 Temperature 98.7 F Pulse Rate 69 Respiratory 16 14 14 Rate Blood Pressure 159/67 (mmHg) O2 Sat by Pulse 97 Oximetry 03/17/17 03/18/17 03/18/17 21:53 00:16 03:07 Temperature 99.1 F 99.3 F Pulse Rate 67 64 Respiratory 14 17 16 Rate Blood Pressure 163/75 138/51 (mmHg) O2 Sat by Pulse 98 96 Oximetry Wound has some adherent slough on base with granulation at wound edges. Compared to photo Mrs. Merino had in phone, this is an improvement. No undrained collections. Measurements ~8 x 12 x 2 cm. Intake & Output 03/17/17 03/18/17 03/18/17 22:59 06:59 14:59 Intake Total 600 50 Output Total 1600 1350 Balance -1000 -1300 Intake: Oral 600 50 Output: Wound Vac 500 Fischer 1600 850 Other: Estimated Stool Amount Small A/P: Some improvement; continue current management.
[2017-03-18] MEDS: Omeprazole CAP* 20 MG PO SCH (10:37)
[2017-03-18] MEDS: Ferrous Gluconate TAB* 324 MG TAB PO SCH ×2 (10:37→20:37)
[2017-03-18] MEDS: Cyanocobalamin TAB* 500 MCG PO SCH (10:37)
[2017-03-18] MEDS: Aspirin Low Dose CHEW TAB* 81 MG PO SCH (10:37)
[2017-03-18] MEDS: Folic Acid TAB* 1 MG PO SCH (10:37)
[2017-03-18] MEDS: Cholecalciferol TAB* 1000 UNITS PO SCH (10:37)
[2017-03-18] MEDS: Lactobacillus Acidophilu (GG)* 1 CAP CAP PO SCH ×2 (10:37→20:37)
[2017-03-18] MEDS: Pregabalin CAP(*) 50 MG PO SCH ×3 (10:38→20:37)
[2017-03-18] MEDS: Potassium Chlor TAB* 10 MEQ TAB.ER PO SCH (10:38)
[2017-03-18 10:56] LABS: Hematocrit 36 % (42-52); Hemoglobin 11.8 g/dl (14.0-18.0); Mean Corpuscular HGB Conc 33 g/dl (31-36); Mean Corpuscular Hemoglobin 26 pg (27-31); Mean Corpuscular Volume 81 fL (80-94); Mean Platelet Volume 8 um3 (7.4-10.4); Red Blood Count 4.46 10^6/ul (4.0-5.4); Red Cell Distribution Width 18 % (10.5-15); White Blood Count 10.8 10^3/ul (3.5-10.8)
[2017-03-18 10:58] LABS: Comments Flag Yes
[2017-03-18] MEDS: Furosemide TAB* 40 MG PO SCH ×2 (11:03→17:45)
[2017-03-18 11:06] LABS: BUN/Creatinine Ratio 17.6 (8-20); Calcium 10.4 mg/dL (8.6-10.3); EGFR Non-African American 45.1 (>60); Magnesium 2.6 mg/dL (1.9-2.7); Potassium 3.9 mmol/L (3.5-5.0)
[2017-03-18] MEDS ORDERED: NS 0.9% 1000 ML* 1,000 ML IV SCH (14:00)
--- NOTE | 2017-03-18 18:32 | PN ---
Subjective Date of Service: 03/18/17 Interval History: Patient offers no complaints today. at bedside, states he had a "good day" . Pt reports less pain. Wound vac was changed and Dr. Anthony surgeon evaluated wound - appears to be improving per wifes previous photo of wound. Plan to continue course of treatment. is hoping he will be admitted to [facility] as he is too weak to go home and she refuses other rehabs. No fevers or chills. No further N/V. Reports decreased appetite but states this is not unusual for him. Little fluid PO intake - per she has to really encourage him. Appears dry on todays labs, pt reports his mouth is dry and tacky today. Denies SOB/CP. Family History: Unchanged from Admission Social History: Unchanged from Admission Past Medical History: Unchanged from Admission Objective Active Medications: Acetaminophen (Tylenol Tab*) 650 mg PO Q4H PRN PRN Reason: PAIN Last Admin: 03/15/17 21:41 Dose: 650 mg Albuterol/Ipratropium (Duoneb (Albuterol 2.5 Mg/Ipratropium 0.5 Mg)) 1 neb INH Q4H PRN PRN Reason: SOB/WHEEZING Last Admin: 03/14/17 17:55 Dose: 1 neb Aspirin (Aspirin Low Dose Tab*) 81 mg PO DAILY [facility] Last Admin: 03/18/17 10:37 Dose: 81 mg Cholecalciferol (Vitamin D Tab*) 5,000 units PO DAILY [facility] Last Admin: 03/18/17 10:37 Dose: 5,000 units Cyanocobalamin (Vitamin B12 Tab*) 1,000 mcg PO DAILY [facility] Last Admin: 03/18/17 10:37 Dose: 1,000 mcg Enoxaparin Sodium (Lovenox(*)) 40 mg SUBCUT Q24H [facility] Last Admin: 03/17/17 20:22 Dose: 40 mg Ferrous Gluconate (Fergon Tab*) 324 mg PO BID [facility] Last Admin: 03/18/17 10:37 Dose: 324 mg Folic Acid (Folvite Tab*) 0.5 mg PO DAILY [facility] Last Admin: 03/18/17 10:37 Dose: 0.5 mg Furosemide (Lasix Tab*) 40 mg PO 0800,1700 [facility] Last Admin: 03/18/17 17:45 Dose: 40 mg Hydralazine HCl (Apresoline Iv*) 10 mg IV Q4H PRN PRN Reason: Systolic >170 Last Admin: 03/17/17 00:02 Dose: 10 mg Piperacillin Sod/Tazobactam (Sod 3.375 gm/ Sodium Chloride) 100 mls @ 25 mls/ hr IVPB 0600,1400,2200 [facility] Last Admin: 03/18/17 14:46 Dose: 25 mls/hr Sodium Chloride (Ns 0.9% 1000 Ml*) 1,000 mls @ 100 mls/hr IV PER RATE [facility] Stop: 03/18/17 23:59 Last Admin: 03/18/17 14:46 Dose: 100 mls/hr Lactobacillus Rhamnosus (Culturelle*) 1 cap PO BID [facility] Last Admin: 03/18/17 10:37 Dose: 1 cap Omeprazole (Prilosec Cap*) 40 mg PO DAILY@0730 [facility] Last Admin: 03/18/17 10:37 Dose: 40 mg Ondansetron HCl (Zofran Inj*) 4 mg IV Q6H PRN PRN Reason: NAUSEA Last Admin: 03/16/17 22:26 Dose: 4 mg Pharmacy Profile Note (Fentanyl Patch Check Q Shift) 0 note N/A 0700,1900 [facility] Last Admin: 03/18/17 07:18 Dose: 1 note Potassium Chloride (Klor Con Er Tab*) 10 meq PO DAILY [facility] Last Admin: 03/18/17 10:38 Dose: 10 meq Pregabalin (Lyrica Cap(*)) 150 mg PO TID [facility] Last Admin: 03/18/17 14:46 Dose: 150 mg Vital Signs 03/17/17 03/17/17 03/17/17 19:42 20:22 21:53 Temperature 98.7 F Pulse Rate 69 Respiratory 14 14 14 Rate Blood Pressure 159/67 (mmHg) O2 Sat by Pulse 97 Oximetry 03/18/17 03/18/17 03/18/17 00:16 03:07 07:54 Temperature 99.1 F 99.3 F 98.5 F Pulse Rate 67 64 63 Respiratory 17 16 14 Rate Blood Pressure 163/75 138/51 150/66 (mmHg) O2 Sat by Pulse 98 96 96 Oximetry 03/18/17 03/18/17 03/18/17 08:00 10:38 11:23 Temperature 99.0 F Pulse Rate 81 Respiratory 14 18 18 Rate Blood Pressure 169/51 (mmHg) O2 Sat by Pulse 96 96 Oximetry 03/18/17 03/18/17 03/18/17 12:38 14:46 15:21 Temperature 98.6 F Pulse Rate 108 Respiratory 18 16 18 Rate Blood Pressure 146/44 (mmHg) O2 Sat by Pulse 97 Oximetry 03/18/17 03/18/17 16:00 16:46 Temperature Pulse Rate Respiratory 16 Rate Blood Pressure (mmHg) O2 Sat by Pulse 97 Oximetry Oxygen Devices in Use Now: None Appearance: chronically ill appearing 71 yo male laying in bed in NAD; A+O x3 Eyes: No Scleral Icterus, PERRLA Ears/Nose/Mouth/Throat: NL Teeth, Lips, Gums, - - Dry MM Neck: NL Appearance and Movements; NL JVP Respiratory: Symmetrical Chest Expansion and Respiratory Effort, Clear to Auscultation Cardiovascular: NL Sounds; No Murmurs; No JVD, RRR, No Edema Abdominal: NL Sounds; No Tenderness; No Distention Extremities: - - trace LE edema b/l Skin: - - sacral wound with wound vac intact - no noted foul odor or surrounding erythema. Neurological: Alert and Oriented x 3, - - paraplegia to LE's Lines/Tubes/Other Access: Clean, Dry and Intact Peripheral IV Nutrition: Taking PO's Result Diagrams: 03/18/17 09:45 03/18/17 09:45 Additional Lab and Data: Laboratory Results - last 24 hr 03/16/17 03/16/17 03/16/17 09:49 09:49 09:49 WBC 11.3 H RBC 4.16 Hgb 10.8 L Hct 33 L MCV 80 MCH 26 L MCHC 33 RDW 17 H Plt Count 483 H D MPV 7 L Neut % (Auto) 67.5 Lymph % (Auto) 19.1 L [place] % (Auto) 9.6 H Eos % (Auto) 2.6 Baso % (Auto) 1.2 Absolute Neuts (auto) 7.7 Absolute Lymphs (auto) 2.2 Absolute Monos (auto) 1.1 H Absolute Eos (auto) 0.3 Absolute Basos (auto) 0.1 Absolute Nucleated RBC 0.01 Nucleated RBC % 0.1 Sodium 143 Potassium 3.7 Chloride 110 Carbon Dioxide 25 Anion Gap 8 BUN 22 Creatinine 1.35 H Est GFR ( Amer) 67.0 Est GFR (Non-Af Amer) 52.1 BUN/Creatinine Ratio 16.3 Glucose 138 H Calcium 10.3 Vancomycin Trough 24.4 Microbiology and Other Data: Microbiology 03/13/17 12:52 Wound Gram Stain - Final Tissue - Other Tissue Culture - Preliminary Enterococcus Faecalis Bacteroides Vulgatus Skin and Soft Tissue MRSA/MSSA (PCR - Final Mrsa Negative S.aureus Negative Assess/Plan/Problems-Billing Assessment: Mr. Merino is a 71 yo male with PMH significant for ependymoma s/p 4 surgeries and spinal fractures after fall c/b progressive paraplegia and debilitating parasthesias, neurogenic bladder with chronic indwelling arriaga, HTN, GERD, MATY with BiPAP, CAD, HLD and BPH with recent diarrhea since tx with cipro for UTI, who presented to the emergency room with sepsis and stage IV sacral decubitus ulcer. On zosyn. s/p vancomycin for suspected HCAP, recent CT chest w/ atelectasis. s/p debridement and now with wound vac w/ saline infusion. Cdiff was positive but ID thinks false positive given character of stool. Low grade fevers. - Patient Problems (1) Sepsis Comment: - Resolved. Meeting SIRS criteria on admission (Tachycardia, tachypnea , fever, leukocytosis) - tachycardia and tachypnea resolved - Leukocytosis and fevers resolved (2) Sacral decubitus ulcer, stage IV Comment: - S/P OR sharp debridement 03/13 and bedside debridement 03/10 - Wound consult appreciated. Wound vacc applied w/ "veriflow" saline washes ( placed 03/15), Change today 03/18 - wound appears to be improving - appreciate Surgical assistance. - Plastic surgery Dr. Busch consulted, will talk to surgery. However seems like for wound flap may have to go to [facility] or [facility] in [place] - Appreciate ID consult. Continue Zosyn, likely multiweek course for potential osteo. PICC to be placed tomorrow - bacteroides, clostridium and E Faecalis from initial cultures and E Faecalis + Bacteroidies vulgatus in deep culture. - appreciate Nutrition recs to support healing (3) Dehydration Comment: patient appaers dry today with Dry mm, elevated HH. platlets, calcium, creatinine - plan to hold lasix and given 1L NS. Recheck labs in am (4) Diarrhea Comment: Persistent diarrhea ~6 weeks after ciprofloxacin course for UTI. Prior to that was never an issue and patient was not incontinent of stool. Given sepsis presentation and continued low grade fevers C-diff was checked and postive. ID thinks false positive, stopped flagyl. monitor stool which are currently improving and diarhhea has resolved Continue probiotics/Culturelle (5) CAD (coronary artery disease) Comment: - asymptomatic - Continue ASA. (6) Pneumonia Comment: suspected HCAP based on SOB and CXR R>L infiltrates. s/p 3 days vancomycin (already on zosyn) but stopped 03/[address] chest more consistent with atelectasis. Appreciate ID consult (7) CKD (chronic kidney disease), stage III Comment: - Creatinine within baseline - Baseline creatinine 2.1 to 2.5 - Avoid nephrotoxic medications (8) Chronic back pain Comment: - Secondary to ependymoma - Continue oxycodone, pregabalin and fentanyl patch (9) HTN (hypertension) Comment: - Normotensive - Home meds furosemide and amlodipine - hold lasix appears dry today (10) MATY (obstructive sleep apnea) Comment: - Continue home BiPAP use. (11) Paraplegia Comment: frequent turning, skin care. Pain control with home fentanyl 75mcg patch and oxycodone 10mg q4 prn, acetaminophen 650mg q6 prn, lyrica. Planned for spinal stimulator implantation with Dr. Staton ([facility]) eventually (12) Anemia Comment: - improved - Hx of h pyrlori infection last year s/p treatment - No s/s of bleeding - Received 1 U PRBCs 03/11 - Continue iron supplementation, B12, folate. However likely anemia of chronic diseases with elevated ferritin 365, iron 29 last month. -send stool for occult blood with hx of bleeding gastric ulcer (13) Full code status (14) DVT prophylaxis Comment: - Lovenox Status and Disposition: Inpatient, surgical floor. Target discharge 03/19 or 03/20? PMRU declined; per she has a meeting with Dr. Swanson Sunday to discuss PMRU decline. does not feel that she can care for him at home by herself and refuses skilled nursing placement for rehab
[2017-03-18] MEDS: hydrALAZINE IV* 20 MG/ML VIAL IV PRN (20:07)
[2017-03-18] MEDS: Enoxaparin(*) 40 MG/0.4 ML SYR SUBCUT SCH (20:37)
[2017-03-18] MEDS: oxyCODONE TAB* 5 MG TAB PO PRN (23:31)
[2017-03-19] MEDS: hydrALAZINE IV* 20 MG/ML VIAL IV PRN (03:23)
[2017-03-19] MEDS: fentaNYL Patch Check Q Shift 1 NOTE SCH (07:07)
[2017-03-19] MEDS: Omeprazole CAP* 20 MG PO SCH (07:41)
[2017-03-19 08:29] LABS: Hematocrit 32 % (42-52); Hemoglobin 10.7 g/dl (14.0-18.0); Mean Corpuscular HGB Conc 33 g/dl (31-36); Mean Corpuscular Hemoglobin 26 pg (27-31); Mean Corpuscular Volume 80 fL (80-94); Mean Platelet Volume 7 um3 (7.4-10.4); Red Blood Count 4.03 10^6/ul (4.0-5.4); Red Cell Distribution Width 18 % (10.5-15); White Blood Count 10.1 10^3/ul (3.5-10.8)
[2017-03-19 08:50] LABS: BUN/Creatinine Ratio 19.4 (8-20); Calcium 10.1 mg/dL (8.6-10.3); EGFR African American 57.1 (>60); EGFR Non-African American 44.4 (>60); Potassium 3.2 mmol/L (3.5-5.0)
--- NOTE | 2017-03-19 09:12 | PN ---
Subjective Date of Service: 03/19/17 Interval History: Patient seen and examined at bedside. Mr. Merino reportedly had some nausea and vomiting overnight but is now resting comfortably. His , Deedee Merino, is at bedside. He denies any chest pain, difficulty breathing. He reports minimal pain to the wound vac site. Ms. Merino expressed concern for patient's deconditioning; she has a plan to meet with Dr. Castro today to discuss PMRU admission possibility. She is in agreement with PT/OT but would like to see patient participate more. She is concerned that she will not be able to manage him independently at home if he is unable to help her. She does not want him in a intermediate. Family History: Unchanged from Admission Social History: Unchanged from Admission Past Medical History: Unchanged from Admission Objective Active Medications: Acetaminophen (Tylenol Tab*) 650 mg PO Q4H PRN PRN Reason: PAIN Last Admin: 03/15/17 21:41 Dose: 650 mg Albuterol/Ipratropium (Duoneb (Albuterol 2.5 Mg/Ipratropium 0.5 Mg)) 1 neb INH Q4H PRN PRN Reason: SOB/WHEEZING Last Admin: 03/14/17 17:55 Dose: 1 neb Aspirin (Aspirin Low Dose Tab*) 81 mg PO DAILY [facility] Last Admin: 03/18/17 10:37 Dose: 81 mg Cholecalciferol (Vitamin D Tab*) 5,000 units PO DAILY [facility] Last Admin: 03/18/17 10:37 Dose: 5,000 units Cyanocobalamin (Vitamin B12 Tab*) 1,000 mcg PO DAILY [facility] Last Admin: 03/18/17 10:37 Dose: 1,000 mcg Enoxaparin Sodium (Lovenox(*)) 40 mg SUBCUT Q24H [facility] Last Admin: 03/18/17 20:37 Dose: 40 mg Ferrous Gluconate (Fergon Tab*) 324 mg PO BID [facility] Last Admin: 03/18/17 20:37 Dose: 324 mg Folic Acid (Folvite Tab*) 0.5 mg PO DAILY [facility] Last Admin: 03/18/17 10:37 Dose: 0.5 mg Hydralazine HCl (Apresoline Iv*) 10 mg IV Q4H PRN PRN Reason: Systolic >170 Last Admin: 03/19/17 03:23 Dose: 10 mg Piperacillin Sod/Tazobactam (Sod 3.375 gm/ Sodium Chloride) 100 mls @ 25 mls/ hr IVPB 0600,1400,2200 [facility] Last Admin: 03/19/17 05:39 Dose: 25 mls/hr Lactobacillus Rhamnosus (Culturelle*) 1 cap PO BID [facility] Last Admin: 03/18/17 20:37 Dose: 1 cap Omeprazole (Prilosec Cap*) 40 mg PO DAILY@0730 [facility] Last Admin: 03/19/17 07:41 Dose: 40 mg Ondansetron HCl (Zofran Inj*) 4 mg IV Q6H PRN PRN Reason: NAUSEA Last Admin: 03/16/17 22:26 Dose: 4 mg Oxycodone HCl (Roxycodone Tab*) 5 mg PO Q4H PRN PRN Reason: PAIN Last Admin: 03/18/17 23:31 Dose: 5 mg Pharmacy Profile Note (Fentanyl Patch Check Q Shift) 0 note N/A 0700,1900 [facility] Last Admin: 03/19/17 07:07 Dose: 1 note Potassium Chloride (Klor Con Er Tab*) 10 meq PO DAILY [facility] Last Admin: 03/18/17 10:38 Dose: 10 meq Pregabalin (Lyrica Cap(*)) 150 mg PO TID [facility] Last Admin: 03/18/17 20:37 Dose: 150 mg Vital Signs 03/18/17 03/18/17 03/18/17 10:38 11:23 12:38 Temperature 99.0 F Pulse Rate 81 Respiratory 18 18 18 Rate Blood Pressure 169/51 (mmHg) O2 Sat by Pulse 96 Oximetry 03/18/17 03/18/17 03/18/17 14:46 15:21 16:00 Temperature 98.6 F Pulse Rate 108 Respiratory 16 18 Rate Blood Pressure 146/44 (mmHg) O2 Sat by Pulse 97 97 Oximetry 03/18/17 03/18/17 03/18/17 16:46 20:01 20:37 Temperature 99.4 F Pulse Rate 100 Respiratory 16 16 15 Rate Blood Pressure 205/88 (mmHg) O2 Sat by Pulse 97 Oximetry 03/18/17 03/18/17 03/18/17 20:38 22:37 23:31 Temperature Pulse Rate 102 Respiratory 15 15 Rate Blood Pressure 179/65 (mmHg) O2 Sat by Pulse Oximetry 03/18/17 03/19/17 03/19/17 23:37 01:31 03:13 Temperature 98.4 F 98.8 F Pulse Rate 86 75 Respiratory 16 14 16 Rate Blood Pressure 160/65 190/75 (mmHg) O2 Sat by Pulse 97 97 Oximetry 03/19/17 03/19/17 04:15 08:00 Temperature 98.5 F Pulse Rate 71 Respiratory 16 16 Rate Blood Pressure 145/46 (mmHg) O2 Sat by Pulse 97 97 Oximetry Oxygen Devices in Use Now: None Appearance: Older male patient, lying in bed, in NAD Eyes: No Scleral Icterus Ears/Nose/Mouth/Throat: Clear Oropharnyx, - - oral mucosa somewhat dry Neck: NL Appearance and Movements; NL JVP Respiratory: Symmetrical Chest Expansion and Respiratory Effort, Clear to Auscultation Cardiovascular: NL Sounds; No Murmurs; No JVD, RRR Abdominal: NL Sounds; No Tenderness; No Distention Extremities: No Clubbing, Cyanosis, - - trace LE edema Skin: - - sacral wound with wound vac intact; serous drainage noted in wound vac collection container, no foul order or surrounding erythema noted Neurological: - - Alert, oriented x 3 but forgetful. Paraplegia - BLE Lines/Tubes/Other Access: Clean, Dry and Intact Peripheral IV Nutrition: Taking PO's Result Diagrams: 03/19/17 08:16 03/19/17 08:16 Additional Lab and Data: Laboratory Results - last 24 hr 03/16/17 03/16/17 03/16/17 09:49 09:49 09:49 WBC 11.3 H RBC 4.16 Hgb 10.8 L Hct 33 L MCV 80 MCH 26 L MCHC 33 RDW 17 H Plt Count 483 H D MPV 7 L Neut % (Auto) 67.5 Lymph % (Auto) 19.1 L [place] % (Auto) 9.6 H Eos % (Auto) 2.6 Baso % (Auto) 1.2 Absolute Neuts (auto) 7.7 Absolute Lymphs (auto) 2.2 Absolute Monos (auto) 1.1 H Absolute Eos (auto) 0.3 Absolute Basos (auto) 0.1 Absolute Nucleated RBC 0.01 Nucleated RBC % 0.1 Sodium 143 Potassium 3.7 Chloride 110 Carbon Dioxide 25 Anion Gap 8 BUN 22 Creatinine 1.35 H Est GFR ( Amer) 67.0 Est GFR (Non-Af Amer) 52.1 BUN/Creatinine Ratio 16.3 Glucose 138 H Calcium 10.3 Vancomycin Trough 24.4 Microbiology and Other Data: Microbiology 03/13/17 12:52 Wound Gram Stain - Final Tissue - Other Tissue Culture - Preliminary Enterococcus Faecalis Bacteroides Vulgatus Skin and Soft Tissue MRSA/MSSA (PCR - Final Mrsa Negative S.aureus Negative Assess/Plan/Problems-Billing Assessment: Mr. Merino is a 71 yo male with PMH significant for ependymoma s/p 4 surgeries and spinal fractures after fall c/b progressive paraplegia and debilitating parasthesias, neurogenic bladder with chronic indwelling arriaga, HTN, GERD, MATY with BiPAP, CAD, HLD and BPH with recent diarrhea since tx with cipro for UTI, who presented to the emergency room with sepsis and stage IV sacral decubitus ulcer. On zosyn. s/p vancomycin for suspected HCAP, recent CT chest w/ atelectasis. s/p debridement and now with wound vac w/ saline infusion. Cdiff was positive but ID thinks false positive given character of stool. Low grade fevers. - Patient Problems (1) Sacral decubitus ulcer, stage IV Code(s): L89.154 - PRESSURE ULCER OF SACRAL REGION, STAGE 4 Comment: s/p OR sharp debridement 03/13 and bedside debridement 03/10 Wound consult appreciated. Wound vac applied w/ "veriflow" saline washes ( placed 03/15) Wound appears to be improving, per re-eval 03/18 Appreciate surgery consult Plastic surgery Dr. Busch consulted, will talk to surgery. However, pt will likely need to go to [facility] or [facility] for wound flap. Appreciate ID consult - bacteroides, clostridium, and E. faecalis from wound cx Continue Zosyn, likely multiweek course for potential osteo. PICC placed. Appreciate nutrition recommendations to support healing. (2) Sepsis Comment: Resolved. Meets SIRS criteria on admission (tachycardia, tachypnea, fever, leukocytosis) Meets SOFA criteria on admission with qSOFA of 2 for low SBP, tachypnea. (3) Dehydration Code(s): E86.0 - DEHYDRATION Comment: Patient still appears to be somewhat dry, given oral mucosa Labs with concern for elevated HH, thrombocytosis, calcium, creatinine Continue to hold furosemide, give additional liter fluid today. (4) Diarrhea Code(s): R19.7 - DIARRHEA, UNSPECIFIED Comment: Persistent diarrhea ~6 weeks after ciprofloxacin course for UTI. Prior to that was never an issue and patient was not incontinent of stool. Given sepsis presentation and cont low grade fevers C-diff was checked and postive. ID thinks false positive, stopped metronidazole. Stool is improving, repeat C. diff PCR sent. Continue probiotic. (5) CAD (coronary artery disease) Code(s): I25.10 - ATHSCL HEART DISEASE OF [place] CORONARY ARTERY W/O ANG PCTRS Comment: Asymptomatic Continue ASA. (6) Pneumonia Code(s): J18.9 - PNEUMONIA, UNSPECIFIED ORGANISM Comment: Suspicion for HCAP, secondary to SOB and CXR R>L infiltrates. S/p 3 days vancomycin (already on Zosyn) but stopped 03/[address] chest more consistent with atelectasis. Appreciate ID consult. (7) CKD (chronic kidney disease), stage III Code(s): N18.3 - CHRONIC KIDNEY DISEASE, STAGE 3 (MODERATE) Comment: Creatinine within baseline Baseline creatinine appears to be between 1.3 and 1.5 Avoid nephrotoxic medications (8) Chronic back pain Code(s): M54.9 - DORSALGIA, UNSPECIFIED; G89.29 - OTHER CHRONIC PAIN Comment: Secondary to ependymoma Continue oxycodone, pregabalin, and acetaminophen. (9) HTN (hypertension) Code(s): I10 - ESSENTIAL (PRIMARY) HYPERTENSION Comment: Somewhat hypertensive Furosemide held with concern for dehydration Continue amlodipine Prn hydralazine for SBP >180 Resume furosemide when patient hemodynamically stable (10) MATY (obstructive sleep apnea) Code(s): G47.33 - OBSTRUCTIVE SLEEP APNEA (ADULT) (PEDIATRIC) Comment: Continue home BiPAP use. (11) Paraplegia Code(s): G82.20 - PARAPLEGIA, UNSPECIFIED Comment: Secondary to ependymoma Cont with skin precautions - frequent turning, skin care. Cont pain management Plan for spinal stimulator implantation with Dr. Staton ([place]) eventually (12) Anemia Code(s): D64.9 - ANEMIA, UNSPECIFIED Comment: Improved, s/p 1 unit PRBC / Hx of h pyrlori infection last year s/p treatment No s/s of bleeding Continue iron supplementation, B12, folate. Likely anemia of chronic disease, with elevated ferritin 365, iron 29 last month. Stool occult negative 03/11 (13) Ependymoma Code(s): C71.9 - MALIGNANT NEOPLASM OF BRAIN, UNSPECIFIED Comment: To the spine (dx in patient's 20s) With concurrent chronic back pain and inability to ambulate S/p multiple surgeries (14) DVT prophylaxis Comment: Lovenox (15) Full code status Code(s): Z78.9 - OTHER SPECIFIED HEALTH STATUS Status and Disposition: Inpatient, surgical floor. Discharge planning in progress; to meet with Dr. Castro regarding PMRU admission. Doesn't feel she can manage him at home by herself currently. Refusing intermediate placement.
[2017-03-19] MEDS: Aspirin Low Dose CHEW TAB* 81 MG PO SCH (09:29)
[2017-03-19] MEDS: Pregabalin CAP(*) 50 MG PO SCH ×3 (09:29→20:32)
[2017-03-19] MEDS: Lactobacillus Acidophilu (GG)* 1 CAP CAP PO SCH ×2 (09:29→20:33)
[2017-03-19] MEDS: Ferrous Gluconate TAB* 324 MG TAB PO SCH ×2 (09:29→20:33)
[2017-03-19] MEDS: Potassium Chlor TAB* 10 MEQ TAB.ER PO SCH (09:29)
[2017-03-19] MEDS: Cholecalciferol TAB* 1000 UNITS PO SCH (09:29)
[2017-03-19] MEDS: Cyanocobalamin TAB* 500 MCG PO SCH (09:29)
[2017-03-19] MEDS: Folic Acid TAB* 1 MG PO SCH (09:30)
[2017-03-19] MEDS ORDERED: NS 0.9% w/ 40 Meq KCL 1000 ML* 1,000 ML IV SCH (15:00)
[2017-03-19] MEDS: oxyCODONE TAB* 5 MG TAB PO PRN (20:32)
[2017-03-19] MEDS: Enoxaparin(*) 40 MG/0.4 ML SYR SUBCUT SCH (20:33)
[2017-03-20] MEDS: fentaNYL Patch Check Q Shift 1 NOTE SCH ×3 (02:47→19:12)
[2017-03-20 06:03] LABS: Hematocrit 28 % (42-52); Hemoglobin 9.3 g/dl (14.0-18.0); Mean Corpuscular HGB Conc 33 g/dl (31-36); Mean Corpuscular Hemoglobin 27 pg (27-31); Mean Corpuscular Volume 81 fL (80-94); Mean Platelet Volume 7 um3 (7.4-10.4); Red Blood Count 3.48 10^6/ul (4.0-5.4); Red Cell Distribution Width 18 % (10.5-15); White Blood Count 9.9 10^3/ul (3.5-10.8)
[2017-03-20 06:14] LABS: BUN/Creatinine Ratio 17.8 (8-20); Calcium 9.6 mg/dL (8.6-10.3); EGFR African American 53.9 (>60); EGFR Non-African American 41.9 (>60); Potassium 3.8 mmol/L (3.5-5.0)
[2017-03-20] MEDS: Omeprazole CAP* 20 MG PO SCH (07:09)
[2017-03-20] MEDS: Pregabalin CAP(*) 50 MG PO SCH ×3 (09:16→20:09)
[2017-03-20] MEDS: Cyanocobalamin TAB* 500 MCG PO SCH (09:16)
[2017-03-20] MEDS: Cholecalciferol TAB* 1000 UNITS PO SCH (09:16)
--- NOTE | 2017-03-20 09:16 | PN ---
Subjective Date of Service: 03/20/17 Interval History: Patient seen and examined at bedside. Mr. Merino is participating with OT in AM care. Denies any significant pain, CP, SOB. No n/v overnight. Discussed dc planning with . Possibility for PMRU admission, depending on PT /OT evals this AM. Family History: Unchanged from Admission Social History: Unchanged from Admission Past Medical History: Unchanged from Admission Objective Active Medications: Acetaminophen (Tylenol Tab*) 650 mg PO Q4H PRN PRN Reason: PAIN Last Admin: 03/15/17 21:41 Dose: 650 mg Albuterol/Ipratropium (Duoneb (Albuterol 2.5 Mg/Ipratropium 0.5 Mg)) 1 neb INH Q4H PRN PRN Reason: SOB/WHEEZING Last Admin: 03/14/17 17:55 Dose: 1 neb Aspirin (Aspirin Low Dose Tab*) 81 mg PO DAILY [facility] Last Admin: 03/19/17 09:29 Dose: 81 mg Cholecalciferol (Vitamin D Tab*) 5,000 units PO DAILY [facility] Last Admin: 03/19/17 09:29 Dose: 5,000 units Cyanocobalamin (Vitamin B12 Tab*) 1,000 mcg PO DAILY [facility] Last Admin: 03/19/17 09:29 Dose: 1,000 mcg Enoxaparin Sodium (Lovenox(*)) 40 mg SUBCUT Q24H [facility] Last Admin: 03/19/17 20:33 Dose: 40 mg Ferrous Gluconate (Fergon Tab*) 324 mg PO BID [facility] Last Admin: 03/19/17 20:33 Dose: 324 mg Folic Acid (Folvite Tab*) 0.5 mg PO DAILY [facility] Last Admin: 03/19/17 09:30 Dose: 0.5 mg Heparin Sodium (Porcine) (Heparin Flush Picc/Ml/Cvc(*)) 1 - 3 ml FLUSH 0600, 1800 [facility] PRN Reason: Protocol Last Admin: 03/20/17 05:40 Dose: 1 ml Hydralazine HCl (Apresoline Iv*) 10 mg IV Q4H PRN PRN Reason: Systolic >170 Last Admin: 03/19/17 03:23 Dose: 10 mg Piperacillin Sod/Tazobactam (Sod 3.375 gm/ Sodium Chloride) 100 mls @ 200 mls/ hr IVPB Q6H [facility] Last Admin: 03/20/17 03:09 Dose: 200 mls/hr Lactobacillus Rhamnosus (Culturelle*) 1 cap PO BID [facility] Last Admin: 03/19/17 20:33 Dose: 1 cap Omeprazole (Prilosec Cap*) 40 mg PO DAILY@0730 [facility] Last Admin: 03/20/17 07:09 Dose: 40 mg Ondansetron HCl (Zofran Inj*) 4 mg IV Q6H PRN PRN Reason: NAUSEA Last Admin: 03/16/17 22:26 Dose: 4 mg Oxycodone HCl (Roxycodone Tab*) 5 mg PO Q4H PRN PRN Reason: PAIN Last Admin: 03/19/17 20:32 Dose: 5 mg Pharmacy Profile Note (Fentanyl Patch Check Q Shift) 0 note N/A 0700,1900 [facility] Last Admin: 03/20/17 07:14 Dose: 1 note Potassium Chloride (Klor Con Er Tab*) 10 meq PO DAILY [facility] Last Admin: 03/19/17 09:29 Dose: 10 meq Pregabalin (Lyrica Cap(*)) 150 mg PO TID [facility] Last Admin: 03/19/17 20:32 Dose: 150 mg Vital Signs 03/19/17 03/19/17 03/19/17 09:29 11:12 11:29 Temperature 98.7 F Pulse Rate 90 Respiratory 18 16 14 Rate Blood Pressure 143/39 (mmHg) O2 Sat by Pulse 98 Oximetry 03/19/17 03/19/17 03/19/17 14:31 15:43 16:00 Temperature 99.3 F Pulse Rate 88 Respiratory 16 16 Rate Blood Pressure 145/54 (mmHg) O2 Sat by Pulse 95 95 Oximetry 03/19/17 03/19/17 03/19/17 16:31 19:58 20:00 Temperature 99.6 F Pulse Rate 96 Respiratory 16 18 18 Rate Blood Pressure 131/58 (mmHg) O2 Sat by Pulse 97 Oximetry 03/19/17 03/19/17 03/19/17 20:32 22:32 23:30 Temperature 98.7 F Pulse Rate 88 Respiratory 18 14 14 Rate Blood Pressure 161/69 (mmHg) O2 Sat by Pulse 99 Oximetry 03/20/17 03/20/17 03/20/17 03:47 04:22 08:26 Temperature 97.8 F 97.9 F Pulse Rate 70 88 79 Respiratory 16 16 16 Rate Blood Pressure 138/56 147/51 (mmHg) O2 Sat by Pulse 98 99 100 Oximetry Oxygen Devices in Use Now: None Appearance: Male patient, lying in bed, NAD Eyes: No Scleral Icterus Ears/Nose/Mouth/Throat: Mucous Membranes Moist Neck: NL Appearance and Movements; NL JVP Respiratory: Symmetrical Chest Expansion and Respiratory Effort, Clear to Auscultation Cardiovascular: NL Sounds; No Murmurs; No JVD, RRR Abdominal: NL Sounds; No Tenderness; No Distention Extremities: No Edema Skin: - - Wound vac in place with serous drainage Neurological: Alert and Oriented x 3 Lines/Tubes/Other Access: Clean, Dry and Intact Peripheral IV Nutrition: Taking PO's Result Diagrams: 03/20/17 05:47 03/20/17 05:47 Additional Lab and Data: Laboratory Results - last 24 hr 03/16/17 03/16/17 03/16/17 09:49 09:49 09:49 WBC 11.3 H RBC 4.16 Hgb 10.8 L Hct 33 L MCV 80 MCH 26 L MCHC 33 RDW 17 H Plt Count 483 H D MPV 7 L Neut % (Auto) 67.5 Lymph % (Auto) 19.1 L [place] % (Auto) 9.6 H Eos % (Auto) 2.6 Baso % (Auto) 1.2 Absolute Neuts (auto) 7.7 Absolute Lymphs (auto) 2.2 Absolute Monos (auto) 1.1 H Absolute Eos (auto) 0.3 Absolute Basos (auto) 0.1 Absolute Nucleated RBC 0.01 Nucleated RBC % 0.1 Sodium 143 Potassium 3.7 Chloride 110 Carbon Dioxide 25 Anion Gap 8 BUN 22 Creatinine 1.35 H Est GFR ( Amer) 67.0 Est GFR (Non-Af Amer) 52.1 BUN/Creatinine Ratio 16.3 Glucose 138 H Calcium 10.3 Vancomycin Trough 24.4 Microbiology and Other Data: Microbiology 03/13/17 12:52 Wound Gram Stain - Final Tissue - Other Tissue Culture - Preliminary Enterococcus Faecalis Bacteroides Vulgatus Skin and Soft Tissue MRSA/MSSA (PCR - Final Mrsa Negative S.aureus Negative Assess/Plan/Problems-Billing Assessment: Mr. Merino is a 71 yo male with PMH significant for ependymoma s/p 4 surgeries and spinal fractures after fall c/b progressive paraplegia and debilitating parasthesias, neurogenic bladder with chronic indwelling arriaga, HTN, GERD, MATY with BiPAP, CAD, HLD and BPH with recent diarrhea since tx with cipro for UTI, who presented to the emergency room with sepsis and stage IV sacral decubitus ulcer. On zosyn. s/p vancomycin for suspected HCAP, recent CT chest w/ atelectasis. s/p debridement and now with wound vac w/ saline infusion. Cdiff was positive but ID thinks false positive given character of stool. Low grade fevers. - Patient Problems (1) Sacral decubitus ulcer, stage IV Code(s): L89.154 - PRESSURE ULCER OF SACRAL REGION, STAGE 4 Comment: s/p OR sharp debridement 03/13 and bedside debridement 03/10 Wound consult appreciated. Wound vac applied w/ "veriflow" saline washes ( placed 03/15) Wound appears to be improving, per re-eval 03/18 Appreciate surgery consult Plastic surgery Dr. Busch consulted, will talk to surgery. However, pt will likely need to go to [place] or [place] in [place] for wound flap. Appreciate ID consult - bacteroides, clostridium, and E. faecalis from wound cx Continue Zosyn, likely multiweek course for potential osteo. PICC placed. Appreciate nutrition recommendations to support healing. (2) Sepsis Comment: Resolved. Meets SIRS criteria on admission (tachycardia, tachypnea, fever, leukocytosis) Meets SOFA criteria on admission with qSOFA of 2 for low SBP, tachypnea. (3) Dehydration Code(s): E86.0 - DEHYDRATION Comment: Resolving Will hold furosemide Resume tomorrow at daily dosing (previously BID) (4) Diarrhea Code(s): R19.7 - DIARRHEA, UNSPECIFIED Comment: Persistent diarrhea ~6 weeks after ciprofloxacin course for UTI. Prior to that was never an issue and patient was not incontinent of stool. Given sepsis presentation and cont low grade fevers C-diff was checked and postive. ID thinks false positive, stopped metronidazole. Stool is improving Continue probiotic. (5) CAD (coronary artery disease) Code(s): I25.10 - ATHSCL HEART DISEASE OF [place] CORONARY ARTERY W/O ANG PCTRS Comment: Asymptomatic Continue ASA. (6) Pneumonia Code(s): J18.9 - PNEUMONIA, UNSPECIFIED ORGANISM Comment: Suspicion for HCAP, secondary to SOB and CXR R>L infiltrates. S/p 3 days vancomycin (already on Zosyn) but stopped 03/[address] chest more consistent with atelectasis. Appreciate ID consult. (7) CKD (chronic kidney disease), stage III Code(s): N18.3 - CHRONIC KIDNEY DISEASE, STAGE 3 (MODERATE) Comment: Creatinine within baseline Baseline creatinine appears to be between 1.3 and 1.5 Avoid nephrotoxic medications (8) Chronic back pain Code(s): M54.9 - DORSALGIA, UNSPECIFIED; G89.29 - OTHER CHRONIC PAIN Comment: Secondary to ependymoma Continue oxycodone, pregabalin, and acetaminophen. (9) HTN (hypertension) Code(s): I10 - ESSENTIAL (PRIMARY) HYPERTENSION Comment: Mostly normotensive Continue amlodipine Prn hydralazine for SBP >180 Resume furosemide when patient hemodynamically stable (10) MATY (obstructive sleep apnea) Code(s): G47.33 - OBSTRUCTIVE SLEEP APNEA (ADULT) (PEDIATRIC) Comment: Continue home BiPAP use. (11) Paraplegia Code(s): G82.20 - PARAPLEGIA, UNSPECIFIED Comment: Secondary to ependymoma Cont with skin precautions - frequent turning, skin care. Cont pain management Plan for spinal stimulator implantation with Dr. Staton ([place]) eventually (12) Anemia Code(s): D64.9 - ANEMIA, UNSPECIFIED Comment: Improved, s/p 1 unit PRBC / Hx of h pyrlori infection last year s/p treatment No s/s of bleeding Continue iron supplementation, B12, folate. Likely anemia of chronic disease, with elevated ferritin 365, iron 29 last month. Stool occult negative 03/11 (13) Ependymoma Code(s): C71.9 - MALIGNANT NEOPLASM OF BRAIN, UNSPECIFIED Comment: To the spine (dx in patient's 20s) With concurrent chronic back pain and inability to ambulate S/p multiple surgeries (14) DVT prophylaxis Comment: Lovenox (15) Full code status Code(s): Z78.9 - OTHER SPECIFIED HEALTH STATUS Status and Disposition: Inpatient, surgical floor. Discharge planning in progress; to meet with Dr. Castro regarding PMRU admission. Doesn't feel she can manage him at home by herself currently. Refusing fdc placement.
[2017-03-20] MEDS: Ferrous Gluconate TAB* 324 MG TAB PO SCH ×2 (09:17→20:09)
[2017-03-20] MEDS: Potassium Chlor TAB* 10 MEQ TAB.ER PO SCH (09:17)
[2017-03-20] MEDS: Aspirin Low Dose CHEW TAB* 81 MG PO SCH (09:17)
[2017-03-20] MEDS: Folic Acid TAB* 1 MG PO SCH (09:17)
[2017-03-20] MEDS: Lactobacillus Acidophilu (GG)* 1 CAP CAP PO SCH ×2 (09:17→20:38)
[2017-03-20] MEDS: oxyCODONE TAB* 5 MG TAB PO PRN ×2 (11:50→22:27)
[2017-03-20] MEDS ORDERED: fentaNYL PATCH 75 MCG/HR* 75 MCG TRANSDERM SCH (20:00)
[2017-03-20] MEDS: Enoxaparin(*) 40 MG/0.4 ML SYR SUBCUT SCH (20:10)
[2017-03-20] MEDS ORDERED: fentaNYL* 50 MCG/ML 2 ML VIAL (100 MCG VIAL) IV ONE (23:19)
[2017-03-21] MEDS: oxyCODONE TAB* 5 MG TAB PO PRN (02:34)
[2017-03-21 04:34] LABS: Hematocrit 30 % (42-52); Hemoglobin 9.9 g/dl (14.0-18.0)
[2017-03-21] MEDS ORDERED: fentaNYL Patch Check Q Shift 1 NOTE SCH (07:00)
[2017-03-21] MEDS: Ferrous Gluconate TAB* 324 MG TAB PO SCH (08:24)
[2017-03-21] MEDS: Lactobacillus Acidophilu (GG)* 1 CAP CAP PO SCH (08:24)
[2017-03-21] MEDS: Cyanocobalamin TAB* 500 MCG PO SCH (08:24)
[2017-03-21] MEDS: Pregabalin CAP(*) 50 MG PO SCH ×2 (08:24→14:14)
[2017-03-21] MEDS: Aspirin Low Dose CHEW TAB* 81 MG PO SCH (08:24)
[2017-03-21] MEDS: Potassium Chlor TAB* 10 MEQ TAB.ER PO SCH (08:25)
[2017-03-21] MEDS: Omeprazole CAP* 20 MG PO SCH (08:25)
[2017-03-21] MEDS: Cholecalciferol TAB* 1000 UNITS PO SCH (08:25)
[2017-03-21] MEDS: Folic Acid TAB* 1 MG PO SCH (08:26)
--- NOTE | 2017-03-21 08:51 | PN ---
Subjective Date of Service: 03/21/17 Interval History: Patient seen and examined at bedside. , Deedee, is also at bedside. Patient reportedly missed a Fentanyl patch change and became agitated overnight and pulled out his PICC line. Fentanyl patch replaced and patient now reports good pain control. Denies n/v. No other complaint. Family History: Unchanged from Admission Social History: Unchanged from Admission Past Medical History: Unchanged from Admission Objective Active Medications: Acetaminophen (Tylenol Tab*) 650 mg PO Q4H PRN PRN Reason: PAIN Last Admin: 03/15/17 21:41 Dose: 650 mg Albuterol/Ipratropium (Duoneb (Albuterol 2.5 Mg/Ipratropium 0.5 Mg)) 1 neb INH Q4H PRN PRN Reason: SOB/WHEEZING Last Admin: 03/14/17 17:55 Dose: 1 neb Aspirin (Aspirin Low Dose Tab*) 81 mg PO DAILY [facility] Last Admin: 03/21/17 08:24 Dose: 81 mg Cholecalciferol (Vitamin D Tab*) 5,000 units PO DAILY [facility] Last Admin: 03/21/17 08:25 Dose: 5,000 units Cyanocobalamin (Vitamin B12 Tab*) 1,000 mcg PO DAILY [facility] Last Admin: 03/21/17 08:24 Dose: 1,000 mcg Enoxaparin Sodium (Lovenox(*)) 40 mg SUBCUT Q24H [facility] Last Admin: 03/20/17 20:10 Dose: 40 mg Fentanyl (Duragesic Patch 75 Mcg/Hr*) 75 mcg TRANSDERM Q72H [facility] Last Admin: 03/20/17 20:35 Dose: 75 mcg Ferrous Gluconate (Fergon Tab*) 324 mg PO BID [facility] Last Admin: 03/21/17 08:24 Dose: 324 mg Folic Acid (Folvite Tab*) 0.5 mg PO DAILY [facility] Last Admin: 03/21/17 08:26 Dose: 0.5 mg Furosemide (Lasix Tab*) 40 mg PO DAILY [facility] Last Admin: 03/21/17 08:25 Dose: 40 mg Heparin Sodium (Porcine) (Heparin Flush Picc/Ml/Cvc(*)) 1 - 3 ml FLUSH 0600, 1800 [facility] PRN Reason: Protocol Last Admin: 03/21/17 04:15 Dose: 1 ml Hydralazine HCl (Apresoline Iv*) 10 mg IV Q4H PRN PRN Reason: Systolic >170 Last Admin: 03/19/17 03:23 Dose: 10 mg Piperacillin Sod/Tazobactam (Sod 3.375 gm/ Sodium Chloride) 100 mls @ 200 mls/ hr IVPB Q6H [facility] Last Admin: 03/21/17 02:35 Dose: 200 mls/hr Lactobacillus Rhamnosus (Culturelle*) 1 cap PO BID [facility] Last Admin: 03/21/17 08:24 Dose: 1 cap Omeprazole (Prilosec Cap*) 40 mg PO DAILY@0730 [facility] Last Admin: 03/21/17 08:25 Dose: 40 mg Ondansetron HCl (Zofran Inj*) 4 mg IV Q6H PRN PRN Reason: NAUSEA Last Admin: 03/16/17 22:26 Dose: 4 mg Oxycodone HCl (Roxycodone Tab*) 5 mg PO Q4H PRN PRN Reason: PAIN Last Admin: 03/21/17 02:34 Dose: 5 mg Pharmacy Profile Note (Fentanyl Patch Check Q Shift) 1 note N/A 0700,1900 [facility] Potassium Chloride (Klor Con Er Tab*) 10 meq PO DAILY [facility] Last Admin: 03/21/17 08:25 Dose: 10 meq Pregabalin (Lyrica Cap(*)) 150 mg PO TID [facility] Last Admin: 03/21/17 08:24 Dose: 150 mg Vital Signs 03/20/17 03/20/17 03/20/17 09:16 11:11 11:50 Temperature Pulse Rate Respiratory 16 16 16 Rate Blood Pressure (mmHg) O2 Sat by Pulse Oximetry 03/20/17 03/20/17 03/20/17 12:00 13:50 14:18 Temperature 97.5 F Pulse Rate 72 Respiratory 16 16 16 Rate Blood Pressure 138/50 (mmHg) O2 Sat by Pulse 98 Oximetry 03/20/17 03/20/17 03/20/17 15:48 16:18 20:00 Temperature 99.9 F Pulse Rate 94 Respiratory 14 16 16 Rate Blood Pressure 132/44 (mmHg) O2 Sat by Pulse 96 Oximetry 03/20/17 03/20/17 03/20/17 20:09 20:15 22:09 Temperature 99.1 F Pulse Rate 91 Respiratory 16 16 18 Rate Blood Pressure 163/55 (mmHg) O2 Sat by Pulse 95 Oximetry 03/20/17 03/20/17 03/21/17 22:27 23:46 00:32 Temperature 99.4 F Pulse Rate 80 Respiratory 18 16 18 Rate Blood Pressure 166/76 (mmHg) O2 Sat by Pulse 97 Oximetry 03/21/17 03/21/17 03/21/17 00:46 02:34 02:40 Temperature Pulse Rate 80 Respiratory 16 18 16 Rate Blood Pressure (mmHg) O2 Sat by Pulse 97 Oximetry 03/21/17 03/21/17 03/21/17 04:29 04:34 07:25 Temperature 98.5 F 98.5 F Pulse Rate 79 75 Respiratory 18 18 16 Rate Blood Pressure 165/57 170/76 (mmHg) O2 Sat by Pulse 97 97 Oximetry 03/21/17 08:24 Temperature Pulse Rate Respiratory 16 Rate Blood Pressure (mmHg) O2 Sat by Pulse Oximetry Oxygen Devices in Use Now: None Appearance: Pleasant male patient, lying in bed, responding appropriately, NAD Eyes: No Scleral Icterus Ears/Nose/Mouth/Throat: Clear Oropharnyx, Mucous Membranes Moist Neck: NL Appearance and Movements; NL JVP Respiratory: Symmetrical Chest Expansion and Respiratory Effort, Clear to Auscultation Cardiovascular: NL Sounds; No Murmurs; No JVD, RRR Skin: - - Stage IV sacral ulcer with wound vac in place, serous drainage noted in wound vac collection container Neurological: Alert and Oriented x 3 Nutrition: Taking PO's Result Diagrams: 03/21/17 04:10 03/20/17 05:47 Additional Lab and Data: Laboratory Results - last 24 hr 03/16/17 03/16/17 03/16/17 09:49 09:49 09:49 WBC 11.3 H RBC 4.16 Hgb 10.8 L Hct 33 L MCV 80 MCH 26 L MCHC 33 RDW 17 H Plt Count 483 H D MPV 7 L Neut % (Auto) 67.5 Lymph % (Auto) 19.1 L [place] % (Auto) 9.6 H Eos % (Auto) 2.6 Baso % (Auto) 1.2 Absolute Neuts (auto) 7.7 Absolute Lymphs (auto) 2.2 Absolute Monos (auto) 1.1 H Absolute Eos (auto) 0.3 Absolute Basos (auto) 0.1 Absolute Nucleated RBC 0.01 Nucleated RBC % 0.1 Sodium 143 Potassium 3.7 Chloride 110 Carbon Dioxide 25 Anion Gap 8 BUN 22 Creatinine 1.35 H Est GFR ( Amer) 67.0 Est GFR (Non-Af Amer) 52.1 BUN/Creatinine Ratio 16.3 Glucose 138 H Calcium 10.3 Vancomycin Trough 24.4 Microbiology and Other Data: Microbiology 03/13/17 12:52 Wound Gram Stain - Final Tissue - Other Tissue Culture - Preliminary Enterococcus Faecalis Bacteroides Vulgatus Skin and Soft Tissue MRSA/MSSA (PCR - Final Mrsa Negative S.aureus Negative Assess/Plan/Problems-Billing Assessment: Mr. Merino is a 71 yo male with PMH significant for ependymoma s/p 4 surgeries and spinal fractures after fall c/b progressive paraplegia and debilitating parasthesias, neurogenic bladder with chronic indwelling arriaga, HTN, GERD, MATY with BiPAP, CAD, HLD and BPH with recent diarrhea since tx with cipro for UTI, who presented to the emergency room with sepsis and stage IV sacral decubitus ulcer. On zosyn. s/p vancomycin for suspected HCAP, recent CT chest w/ atelectasis. s/p debridement and now with wound vac w/ saline infusion. Cdiff was positive but ID thinks false positive given character of stool. Low grade fevers. - Patient Problems (1) Sacral decubitus ulcer, stage IV Code(s): L89.154 - PRESSURE ULCER OF SACRAL REGION, STAGE 4 Comment: s/p OR sharp debridement 03/13 and bedside debridement 03/10 Wound consult appreciated. Wound vac applied w/ "veriflow" saline washes ( placed 03/15) Wound appears to be improving Appreciate surgery consult Plastic surgery Dr. Busch consulted, will talk to surgery. However, pt will likely need to go to [place] or [facility] for wound flap. Appreciate ID consult - bacteroides, clostridium, and E. faecalis from wound cx Continue Zosyn, likely multiweek course for potential osteo. PICC placed. Appreciate nutrition recommendations to support healing. (2) Sepsis Comment: Resolved. Meets SIRS criteria on admission (tachycardia, tachypnea, fever, leukocytosis) Meets SOFA criteria on admission with qSOFA of 2 for low SBP, tachypnea. (3) Diarrhea Code(s): R19.7 - DIARRHEA, UNSPECIFIED Comment: Persistent diarrhea ~6 weeks after ciprofloxacin course for UTI. Prior to that was never an issue and patient was not incontinent of stool. Given sepsis presentation and cont low grade fevers C-diff was checked and postive. ID thinks false positive, stopped metronidazole. Stool is improving Continue probiotic. (4) CAD (coronary artery disease) Code(s): I25.10 - ATHSCL HEART DISEASE OF [place] CORONARY ARTERY W/O ANG PCTRS Comment: Asymptomatic Continue ASA. (5) CKD (chronic kidney disease), stage III Code(s): N18.3 - CHRONIC KIDNEY DISEASE, STAGE 3 (MODERATE) Comment: Creatinine within baseline Baseline creatinine appears to be between 1.3 and 1.5 Avoid nephrotoxic medications (6) Chronic back pain Code(s): M54.9 - DORSALGIA, UNSPECIFIED; G89.29 - OTHER CHRONIC PAIN Comment: Secondary to ependymoma Continue oxycodone, pregabalin, and acetaminophen. (7) HTN (hypertension) Code(s): I10 - ESSENTIAL (PRIMARY) HYPERTENSION Comment: Mostly normotensive Continue amlodipine Prn hydralazine for SBP >180 Resume furosemide, dosing decreased from BID to daily - monitor for dehydration (8) MATY (obstructive sleep apnea) Code(s): G47.33 - OBSTRUCTIVE SLEEP APNEA (ADULT) (PEDIATRIC) Comment: Continue home BiPAP use. (9) Paraplegia Code(s): G82.20 - PARAPLEGIA, UNSPECIFIED Comment: Secondary to ependymoma Cont with skin precautions - frequent turning, skin care. Cont pain management Plan for spinal stimulator implantation with Dr. Staton ([place]) eventually (10) Anemia Code(s): D64.9 - ANEMIA, UNSPECIFIED Comment: Stable HH s/p 1 unit PRBC / Hx of h pyrlori infection last year s/p treatment No s/s of bleeding Continue iron supplementation, B12, folate. Likely anemia of chronic disease, with elevated ferritin 365, iron 29 last month. Stool occult negative 03/11 (11) Ependymoma Code(s): C71.9 - MALIGNANT NEOPLASM OF BRAIN, UNSPECIFIED Comment: To the spine (dx in patient's 20s) With concurrent chronic back pain and inability to ambulate S/p multiple surgeries (12) DVT prophylaxis Comment: Lovenox (13) Full code status Code(s): Z78.9 - OTHER SPECIFIED HEALTH STATUS Status and Disposition: Inpatient, surgical floor. Plan for dc to [facility] pending approval.
[2017-03-21] MEDS ORDERED: Furosemide TAB* 40 MG PO SCH (09:00)
[2017-03-21] MEDS ORDERED: Silver Nitrate/Potassium Nitr* 1 EA STICK TOPICAL ONE (09:30)
--- NOTE | 2017-03-21 12:17 | PN ---
Progress Note - Progress Note Date of Service: 03/21/17 SOAP: Subjective: He is without complaint today Objective: Temp Pulse Resp BP Pulse Ox 98.5 F 75 16 170/76 97 03/21/17 07:25 03/21/17 07:25 03/21/17 08:24 03/21/17 07:25 03/21/17 07:25 PEX: Wound vac removed from sacral pressure ulcer. Wound bed noted to have some dry and dessicated tissue at base overlying the mid -line bony area and some necrotic fat more laterally that was debrided to healthy tissue. There is bone exposed at the midline. No new tracking or abscess noted. No odor. Assessment: Sacral decubitus Plan: Continue Wound VAC IV antibiotics Transfer to rehab today He is OK to sit up for periods of time in a chair for upper extremity exercises.
[2017-03-21] MEDS: hydrALAZINE IV* 20 MG/ML VIAL IV PRN (14:15)
[2017-03-21 14:27] VITALS: BP 186/60
--- NOTE | 2017-03-22 09:42 | DS ---
CC: Dr. Griffiths * MEDICINE DISCHARGE SUMMARY: DATE OF ADMISSION: 03/10/17 DATE OF DISCHARGE: 03/21/17 PRIMARY CARE PHYSICIAN: Dr. Griffiths. PROVIDER: Nat Robert NP ATTENDING PHYSICIAN: Silva Chang MD *(as dictated by Nat Robert NP ). CONSULTING PHYSICIANS: 1. Dr. Stanislaw Harmon, Surgery. 2. Dr. Jeevan Sexton, Infectious Disease. 3. Dr. Yassine Castro, Physiatry. PRIMARY DISCHARGE DIAGNOSES: 1. Stage 4 decubitus ulcer. 2. Sepsis. 3. Persistent diarrhea. SECONDARY DISCHARGE DIAGNOSES: 1. History of ependymoma, status post multiple surgeries. 2. Chronic back pain secondary to ependymoma. 3. Neurogenic bladder. 4. Chronic kidney disease, stage 3. 5. Hypertension. 6. Gastroesophageal reflux disease. 7. Obstructive sleep apnea, on BiPAP. 8. Coronary artery disease. 9. Hyperlipidemia. 10. Benign prostatic hypertrophy. 11. Asthma. CURRENT MEDICATIONS: 1. Tylenol 650 mg q.4 hours p.r.n. 2. DuoNebs 1 nebulizer treatment q.4 hours p.r.n. 3. Aspirin 81 mg daily. 4. Cholecalciferol 5000 units daily. 5. Cyanocobalamin 1000 mcg daily. 6. Lovenox 40 mg q.24 hours for DVT prophylaxis. 7. Fentanyl 75 mcg transdermally q.72 hours. 8. Ferrous gluconate 324 mg b.i.d. 9. Folic acid 0.5 mg daily. 10. Furosemide 40 mg daily. 11. Heparin flushes per protocol for PICC line. 12. Hydralazine 10 mg q.4 hours IV p.r.n. blood pressure. 13. Culturelle 1 capsule b.i.d. 14. Omeprazole 40 mg daily. 15. Ondansetron 4 mg q.6 hours p.r.n. 16. Oxycodone 5 mg q.4 hours p.r.n. 17. Zosyn 3.375 g q.6 hours. 18. Potassium chloride 10 mEq daily. 19. Pregabalin 150 mg b.i.d. NOTE: These are medications patient received in the hospital. HOSPITAL COURSE OF STAY: For full details, please refer to the H and P provided by Dr. Rowland on 03/10/17. In summary, Mr. Merino is a 71-year-old male who has a history as previously indicated. The patient is wheelchair bound. The patient has had recurrent diarrhea at home and was recently treated in the hospital from February 12 to with UTI and pneumonia. The patient went home with persistent diarrhea, came back to the hospital with concern for confusion and noted worsening wound to the sacrum. Upon admission, the patient was noted to be septic and was started on antibiotic therapy. Surgery was consulted for the patient's sacral wound, which had concern secondary to the extensive size and depth of the wound. He was taken to the OR for debridement and was started on a wound VAC. ID also consulted given the patient's multiple issues, which included persistent diarrhea that has been ongoing since January as well as the sacral decubitus ulcer and concern for urinary bacteria and a right-sided infiltrate. He was treated with Flagyl for positive Clostridium difficile PCR but this was thought to be a false positive as patient's diarrhea has been improving spontaneously. Mr. Merino has been continued on Zosyn primarily for treatment of his sacral decubitus ulcer as there is also concern for acute osteomyelitis of the sacrum. The patient at this point continued antibiotic treatment and with the wound VAC, the wound has been improving. The patient's sepsis has resolved with antibiotics and fluid resuscitation. Plan is now for the patient to go to [facility] for further rehabilitation and to help maximize and optimize the patient's upper body strength, so that he may return home. The patient's does not want the patient to go to a senior care and is insistent that he go home and is in agreement with [facility] in the interim until the patient is able to be discharged to home. DIET: Heart healthy diet. ACTIVITY: As tolerated. CONDITION: Improved. DISPOSITION: To [facility]. TIME SPENT: Time spent on this discharge was approximately 60 minutes. This is only a brief summarization of a very complex and extended length of stay. Please feel free to call me with any questions. NAT ROBERT NP [id number]/CPS #: [id number] [facility]
== END 2017-03-21 14:20 | DRG 853 ==
LOC: ED 20:43 → SSU 03-10 00:43
PROVIDERS: ADMIT Internal Medicine; ATTEND Internal Medicine
PROC: 0JB70ZZ Excision of Back Subcutaneous Tissue and Fascia, Open Approach (ICD-10-PCS; 2017-03-10)
PROC: 30233N1 Transfusion of Nonautologous Red Blood Cells into Peripheral Vein, Percutaneous Approach (ICD-10-PCS; 2017-03-11)
PROC: 0KBN0ZZ Excision of Right Hip Muscle, Open Approach (ICD-10-PCS; principal; 2017-03-13 12:00)
PROC: 0JB70ZZ Excision of Back Subcutaneous Tissue and Fascia, Open Approach (ICD-10-PCS; 2017-03-21)
DX: A41.9 Sepsis, unspecified organism (principal); J18.9 Pneumonia, unspecified organism; L89.154 Pressure ulcer of sacral region, stage 4; A04.7 Enterocolitis due to Clostridium difficile; C41.2 Malignant neoplasm of vertebral column; K59.2 Neurogenic bowel, not elsewhere classified; L89.153 Pressure ulcer of sacral region, stage 3; G82.20 Paraplegia, unspecified; N31.9 Neuromuscular dysfunction of bladder, unspecified; M86.18 Other acute osteomyelitis, other site; G81.94 Hemiplegia, unspecified affecting left nondominant side; B95.2 Enterococcus as the cause of diseases classified elsewhere; G62.9 Polyneuropathy, unspecified; N18.3 Chronic kidney disease, stage 3 (moderate); L89.629 Pressure ulcer of left heel, unspecified stage; H53.50 Unspecified color vision deficiencies; G89.29 Other chronic pain; M54.9 Dorsalgia, unspecified; H91.90 Unspecified hearing loss, unspecified ear; G47.33 Obstructive sleep apnea (adult) (pediatric); K21.9 Gastro-esophageal reflux disease without esophagitis; E78.5 Hyperlipidemia, unspecified; N40.0 Benign prostatic hyperplasia without lower urinary tract symptoms; I12.9 Hypertensive chronic kidney disease with stage 1 through stage 4 chronic kidney disease, or unspecified chronic kidney disease; R20.8 Other disturbances of skin sensation; B96.6 Bacteroides fragilis [B. fragilis] as the cause of diseases classified elsewhere; E66.3 Overweight; D53.9 Nutritional anemia, unspecified; E86.0 Dehydration; I25.10 Atherosclerotic heart disease of native coronary artery without angina pectoris; J45.909 Unspecified asthma, uncomplicated; Z99.3 Dependence on wheelchair; Z74.01 Bed confinement status; Z79.82 Long term (current) use of aspirin; Z86.19 Personal history of other infectious and parasitic diseases; Z92.3 Personal history of irradiation; Z88.8 Allergy status to other drugs, medicaments and biological substances; Z86.11 Personal history of tuberculosis; Z79.01 Long term (current) use of anticoagulants; Z68.31 Body mass index [BMI] 31.0-31.9, adult
CPT/HCPCS: 36415; 71010; 71250; 80048; 80053; 80202; 81003; 81015; 82270; 82272; 83605; 83735; 84484; 85014; 85018; 85025; 85060; 85610; 86140; 86850; 86900; 86901; 86922; 87040; 87070; 87076; 87077; 87086; 87185; 87186; 87205; 87493; 87640; 87641; 87899; 93005; 94640; 94760; A9270-GY; C1751; J0360; J1650; J2001; J2250; J2405; J2543; J3010; J3370; J3480; P9040

== ENCOUNTER 2017-03-20 11:59 | Inpatient (IN) | payer MEDICARE ==
[2017-03-21] MEDS ORDERED: Bisacodyl SUPP* 10 MG SUPP PR PRN (15:58)
[2017-03-21] MEDS ORDERED: Docusate CAP* 100 MG PO PRN (15:58)
[2017-03-21] MEDS ORDERED: Senna TAB PO PRN (15:58)
[2017-03-21] MEDS ORDERED: Acetaminophen TAB* 325 MG PO PRN (15:58)
[2017-03-21] MEDS ORDERED: Ondansetron ODT TAB* 4 MG PO PRN (16:11)
[2017-03-21] MEDS ORDERED: Zosyn per Pharmacy* NOTE FOLLOW UP SCH (17:00)
[2017-03-21] MEDS ORDERED: fentaNYL PATCH 75 MCG/HR* 75 MCG TRANSDERM SCH (17:00)
[2017-03-21] MEDS ORDERED: fentaNYL Patch Check Q Shift 1 NOTE SCH (19:00)
[2017-03-21] MEDS: Pregabalin CAP(*) 50 MG PO SCH (20:15)
[2017-03-21] MEDS: Lactobacillus Acidophilu (GG)* 1 CAP CAP PO SCH (21:28)
--- NOTE | 2017-03-21 22:58 | HP ---
ADMISSION HISTORY AND PHYSICAL: DATE OF ADMISSION: 03/21/17 REASON FOR ADMISSION: Sepsis secondary to an infected decubitus ulcer in a paraplegic. HISTORY OF PRESENT ILLNESS: Kavon Merino is a 71-year-old man. 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 He had debulking surgeries done many years ago. He had 2 debulking surgeries. Radiation and chemotherapy were tried, which did not help. He then had 2 subsequent debulking surgeries. He has been known to me since 2011. He has paraplegia secondary to the tumor. When I first met him in 2011, he was able to walk, but over the years, has become less and less ambulatory as the tumor has progressed. He has significant pain in his back, which radiates down both legs. This past summer, his pain has gotten significantly worse. I had seen him in late December and had increased his pain medications. Unfortunately, the increase in pain medications left him confused and the patient stopped catheterizing himself. He went into acute renal failure and was hospitalized over January 09. His medications were adjusted and he had an indwelling Fischer shortly thereafter. The patient has had a trial of a spinal cord stimulator, which was effective. The permanent pacemaker was supposed to be placed, but because of his illnesses this summer, he was not able to get to [place] to have the implantable stim done. The patient has seen multiple pain clinics including the one in [place], as well as Dr. Wagner, and the pain clinic in [place]. When he last saw me on 02/28/17, he was still having significant pain and we decided to try him on a Duragesic patch. We initially tried him on 25 mcg an hour. His primary care doctor then doubled the dose to 50 mcg an hour. He was then increased again to 75 mcg an hour. This seemed to provide him some level of relief. The patient, however, developed a bedsore in early February 2017. The bedsore increased in size as he became more bedridden when it became very very painful for him to transfer out of bed. The patient was brought to the hospital acutely on 03/10/17 by his when he was febrile and confused. The was having trouble keeping the bedsore clean as the patient was having diarrhea at home. The patient was brought to the emergency room on 03/10/17 and was admitted with probable sepsis , which was felt to be secondary to an infected decubitus ulcer. The patient was admitted to [facility] and started on broad-spectrum antibiotics. He was seen by the surgeons as well as by Dr. Jeevan Sexton. The surgeons debrided the wound on 3 separate occasions. A wound VAC was placed. The patient was positive for C. difficile on the acute medical service , but Dr. Sexton felt that it was a false positive given that his stools were becoming more formed. Dr. Sexton recommended decreasing the Zosyn to every 8 hours and stopping his IV Flagyl. The patient was weak and given the course of the past 2 weeks and lost a great deal of strength in his upper body and was not able to transfer him out of bed. He is now being admitted to inpatient rehab to work on transfers and sitting balance so they might go home. His will be trained in helping manage the patient in bed, in keeping his bottom clean. PAST MEDICAL HISTORY: As mentioned is significant for the ependymoma. He also has hypertension, gastro-esophageal reflux disease, obstructive sleep apnea, coronary artery disease, chronic kidney disease stage 3. He has had carotid endarterectomy on the right side in 2015. He is paraplegic with neurogenic bowel and bladder as a result of his tumor. CURRENT MEDICATIONS: Include: 1. Aspirin a day. 2. He is on Culturelle. 3. Duragesic patch. 4. He is on folic acid. 5. Lasix. 6. Klor-Con. 7. Lovenox. 8. Lyrica. 9. Prilosec. 10. Zosyn. 11. He is also on oxycodone for pain. ALLERGIES: To LIPITOR. SOCIAL HISTORY: He is a nonsmoker, nondrinker. Lives with his in a one- story house. His does most of the caregiving, but Obi prior to admission was independent in transferring. He has a wheelchair at home as well as a Roho cushion and a gel cushion. They were planning to get an electric wheelchair. REVIEW OF SYSTEMS: The patient reports no current shortness of breath or chest pain. PHYSICAL EXAMINATION VITAL SIGNS: The patient's temperature is 100.1, blood pressure is 159/64, pulse is 88, respirations 16. HEENT: His extraocular movements are intact. Tongue is midline. NECK: Supple. LUNGS: Sound clear to auscultation bilaterally. HEART: Sounds are regular. S1 and S2 audible. ABDOMEN: Soft and nontender. BACK: His back was examined. He has a wound VAC in place over his buttock region. EXTREMITIES: They have decreased tone in his lower extremities. Upper extremities have normal muscle, bulk and tone. Peripheral pulses are intact. NEUROLOGIC: He is awake, alert and oriented. Muscle strength in his upper extremities is about 4+/5. Lower extremities is trace to 0. FUNCTIONAL EXAM: The patient transfers independent. ASSESSMENT: Paraplegia with superimposed weakness secondary to sepsis from an infected decubitus ulcer. PLAN: Integrate him into a comprehensive and therapeutic rehab program with the following goals: 1. Physical Therapy will see the patient. They are going to work on functional transfer training, wheelchair mobilities and train the on use of a Laila. 2. Occupational Therapy will see the patient, work on his activities of daily living, upper body strengthening and again training the in activities of daily living and keeping his bottom clean. 3. Lovenox for DVT prophylaxis. 4. Adequate analgesia, we are going to continue his fentanyl as well as his p.r.n. oxycodone. 5. Continue the Lyrica for neuropathic pain. 6. Continue IV Zosyn for now. 7. ID followup as indicated. 8. donor services technician will be closely involved to make sure any equipment and home IV antibiotics were in place prior to discharge. 9. Training of the and other nursing needs such as changing Fischer catheter and flushing PICC line. 10. Advance directives: The patient's is his surrogate decision maker. He is a full code. 11. Home with appropriate services. ESTIMATED LENGTH OF STAY: 14 days. [id number]/CPS #: [id number] [facility]
[2017-03-21] MEDS: fentaNYL Patch Check Q Shift 1 NOTE SCH (23:12)
[2017-03-22] MEDS: Omeprazole CAP* 20 MG PO SCH (06:44)
[2017-03-22] MEDS: fentaNYL Patch Check Q Shift 1 NOTE SCH ×3 (07:04→22:58)
[2017-03-22] MEDS: Enoxaparin(*) 40 MG/0.4 ML SYR SUBCUT SCH (09:19)
[2017-03-22] MEDS: Cyanocobalamin TAB* 500 MCG PO SCH (09:21)
[2017-03-22] MEDS: Pregabalin CAP(*) 50 MG PO SCH ×3 (09:21→20:51)
[2017-03-22] MEDS: Ferrous Gluconate TAB* 324 MG TAB PO SCH ×2 (09:21→20:51)
[2017-03-22] MEDS: Cholecalciferol TAB* 1000 UNITS PO SCH (09:21)
[2017-03-22] MEDS: Furosemide TAB* 40 MG PO SCH (09:21)
[2017-03-22] MEDS: Lactobacillus Acidophilu (GG)* 1 CAP CAP PO SCH ×2 (09:22→20:52)
[2017-03-22] MEDS: Potassium Chlor TAB* 10 MEQ TAB.ER PO SCH (09:22)
[2017-03-22] MEDS: Aspirin EC Low Dose* 81 MG TAB.EC PO SCH (09:22)
[2017-03-22] MEDS: Folic Acid TAB* 1 MG PO SCH (09:22)
--- NOTE | 2017-03-22 11:25 | PN ---
Progress Note - Progress Note Date of Service: 03/22/17 SOAP: Subjective: CC: sacral wound HPI: 71 year old man with sacral decubitus ulcer, s/p debridement and vac. Loose stool x1 today and yesterday, decreased appetite. No fever or rash. Objective: [] Vital Signs Temp 37.2 C 03/22/17 06:26 Pulse 75 03/22/17 06:26 Resp 18 03/22/17 09:21 BP 148/62 03/22/17 06:26 Pulse Ox 98 03/22/17 06:26 Intake & Output 03/21/17 03/22/17 03/22/17 18:59 06:59 18:59 Intake Total 100 125 360 Output Total 750 850 Balance -650 -725 360 Weight 210 lb Intake: IV Fluids 20 ABX - ZOSYN 20 IVPB 105 ABX - ZOSYN 105 Oral 100 360 Output: Fischer 750 850 Other: Estimated Void Medium # Bowel Movements 1 1 Estimated Stool Amount Medium Small # Voids 1 Gen:awake, no distress HEENT:PERRL, MMM Neck:Supple Heart:RRR no murmur Lungs:CTA BL Abd:+BS soft non distended Skin: no rash MSK: sacral vac dressing sacral cx: Bacteroides, Enterococcus Assessment: 1. polymicrobial sacral wound infection with acute osteomyelitis 2. diarrhea, most likely zosyn side effect 3. paraplegia Plan: 1. change zosyn to ceftriaxone 2gm daily and flagyl 500 mg IV Q12hrs ; day 05/29 -28 of IV antibiotics followed by PO treatment 2. vacc dressing per surgery 25 minutes floor time >50% face to face counseling regarding diarrhea mgmt and abx treatment, coordinating with Dr Castro
[2017-03-22] MEDS: metroNIDAZOLE IV 500 MG/100ML* 500 MG/100 ML BAG IVPB SCH (17:59)
[2017-03-23] MEDS: metroNIDAZOLE IV 500 MG/100ML* 500 MG/100 ML BAG IVPB SCH ×2 (05:24→18:03)
[2017-03-23 05:37] LABS: Hematocrit 29 % (42-52); Hemoglobin 9.6 g/dl (14.0-18.0); Mean Corpuscular HGB Conc 33 g/dl (31-36); Mean Corpuscular Hemoglobin 27 pg (27-31); Mean Corpuscular Volume 82 fL (80-94); Mean Platelet Volume 8 um3 (7.4-10.4); Red Blood Count 3.57 10^6/ul (4.0-5.4); Red Cell Distribution Width 19 % (10.5-15); White Blood Count 9.5 10^3/ul (3.5-10.8)
[2017-03-23 05:48] LABS: BUN/Creatinine Ratio 21.6 (8-20); Calcium 9.8 mg/dL (8.6-10.3); EGFR African American 60.3 (>60); EGFR Non-African American 46.9 (>60); Globulin 2.8 g/dL (2-4); Potassium 3.8 mmol/L (3.5-5.0); Total Bilirubin 0.4 mg/dL (0.2-1.0); Total Protein 5.8 g/dL (6.4-8.9)
[2017-03-23] MEDS: Omeprazole CAP* 20 MG PO SCH (06:45)
[2017-03-23] MEDS: fentaNYL Patch Check Q Shift 1 NOTE SCH ×3 (06:55→22:58)
[2017-03-23] MEDS: Enoxaparin(*) 40 MG/0.4 ML SYR SUBCUT SCH (07:56)
[2017-03-23] MEDS: Potassium Chlor TAB* 10 MEQ TAB.ER PO SCH (07:58)
[2017-03-23] MEDS: Cyanocobalamin TAB* 500 MCG PO SCH (07:58)
[2017-03-23] MEDS: Cholecalciferol TAB* 1000 UNITS PO SCH (07:58)
[2017-03-23] MEDS: Aspirin EC Low Dose* 81 MG TAB.EC PO SCH (07:58)
[2017-03-23] MEDS: Folic Acid TAB* 1 MG PO SCH (07:58)
[2017-03-23] MEDS: Lactobacillus Acidophilu (GG)* 1 CAP CAP PO SCH ×2 (07:58→20:50)
[2017-03-23] MEDS: Pregabalin CAP(*) 50 MG PO SCH ×3 (07:59→20:50)
[2017-03-23] MEDS: Furosemide TAB* 40 MG PO SCH (07:59)
[2017-03-23] MEDS: Ferrous Gluconate TAB* 324 MG TAB PO SCH ×2 (07:59→20:50)
[2017-03-23] MEDS ORDERED: Influenza VAC *QUAD* 2017-18* 0.5 ML SYRINGE IM ONE (08:58)
[2017-03-23] MEDS: oxyCODONE TAB* 5 MG TAB PO PRN ×2 (13:37→19:37)
[2017-03-23] MEDS: fentaNYL PATCH 75 MCG/HR* 75 MCG TRANSDERM SCH (20:44)
[2017-03-24] MEDS: metroNIDAZOLE IV 500 MG/100ML* 500 MG/100 ML BAG IVPB SCH ×2 (05:39→17:43)
[2017-03-24] MEDS: Omeprazole CAP* 20 MG PO SCH (07:04)
[2017-03-24] MEDS: fentaNYL Patch Check Q Shift 1 NOTE SCH ×4 (07:13→22:47)
[2017-03-24] MEDS: Enoxaparin(*) 40 MG/0.4 ML SYR SUBCUT SCH (07:52)
[2017-03-24] MEDS: oxyCODONE ORAL.SOLN* 5 MG/5 ML UDC PO PRN (07:52)
[2017-03-24] MEDS ORDERED: Influenza VAC *QUAD* 2017-18* 0.5 ML SYRINGE IM ONE (09:00)
[2017-03-24] MEDS: Psyllium PAK PO SCH (09:11)
[2017-03-24] MEDS: Furosemide TAB* 40 MG PO SCH (09:12)
[2017-03-24] MEDS: Pregabalin CAP(*) 50 MG PO SCH ×3 (09:12→20:48)
[2017-03-24] MEDS: Cyanocobalamin TAB* 500 MCG PO SCH (09:12)
[2017-03-24] MEDS: Potassium Chlor TAB* 10 MEQ TAB.ER PO SCH (09:12)
[2017-03-24] MEDS: Lactobacillus Acidophilu (GG)* 1 CAP CAP PO SCH ×2 (09:12→20:49)
[2017-03-24] MEDS: Ferrous Gluconate TAB* 324 MG TAB PO SCH ×2 (09:12→20:49)
[2017-03-24] MEDS: Aspirin EC Low Dose* 81 MG TAB.EC PO SCH (09:12)
[2017-03-24] MEDS: Folic Acid TAB* 1 MG PO SCH (09:13)
[2017-03-24] MEDS: Cholecalciferol TAB* 1000 UNITS PO SCH (09:13)
[2017-03-24] MEDS: oxyCODONE TAB* 5 MG TAB PO PRN (12:21)
[2017-03-25] MEDS: metroNIDAZOLE IV 500 MG/100ML* 500 MG/100 ML BAG IVPB SCH ×2 (05:28→17:58)
[2017-03-25] MEDS: Omeprazole CAP* 20 MG PO SCH (06:43)
[2017-03-25] MEDS: fentaNYL Patch Check Q Shift 1 NOTE SCH ×3 (06:52→23:04)
[2017-03-25] MEDS: Enoxaparin(*) 40 MG/0.4 ML SYR SUBCUT SCH (08:42)
[2017-03-25] MEDS: Psyllium PAK PO SCH (08:43)
[2017-03-25] MEDS: Folic Acid TAB* 1 MG PO SCH (08:44)
[2017-03-25] MEDS: Potassium Chlor TAB* 10 MEQ TAB.ER PO SCH (08:44)
[2017-03-25] MEDS: Aspirin EC Low Dose* 81 MG TAB.EC PO SCH (08:45)
[2017-03-25] MEDS: Furosemide TAB* 40 MG PO SCH (08:45)
[2017-03-25] MEDS: Lactobacillus Acidophilu (GG)* 1 CAP CAP PO SCH ×2 (08:45→20:54)
[2017-03-25] MEDS: Cyanocobalamin TAB* 500 MCG PO SCH (08:45)
[2017-03-25] MEDS: Cholecalciferol TAB* 1000 UNITS PO SCH (08:45)
[2017-03-25] MEDS: Ferrous Gluconate TAB* 324 MG TAB PO SCH ×2 (08:45→20:54)
[2017-03-25] MEDS: Pregabalin CAP(*) 50 MG PO SCH ×3 (08:45→20:54)
[2017-03-25] MEDS: oxyCODONE ORAL.SOLN* 5 MG/5 ML UDC PO PRN (17:13)
[2017-03-25] MEDS: oxyCODONE TAB* 5 MG TAB PO PRN (20:52)
[2017-03-26] MEDS: metroNIDAZOLE IV 500 MG/100ML* 500 MG/100 ML BAG IVPB SCH ×2 (05:27→17:56)
[2017-03-26] MEDS: Omeprazole CAP* 20 MG PO SCH (06:51)
[2017-03-26] MEDS: fentaNYL Patch Check Q Shift 1 NOTE SCH ×3 (07:10→23:28)
[2017-03-26] MEDS: Psyllium PAK PO SCH (09:01)
[2017-03-26] MEDS: Enoxaparin(*) 40 MG/0.4 ML SYR SUBCUT SCH (09:02)
[2017-03-26] MEDS: Aspirin EC Low Dose* 81 MG TAB.EC PO SCH (09:03)
[2017-03-26] MEDS: Potassium Chlor TAB* 10 MEQ TAB.ER PO SCH (09:03)
[2017-03-26] MEDS: Ferrous Gluconate TAB* 324 MG TAB PO SCH ×2 (09:03→19:58)
[2017-03-26] MEDS: Lactobacillus Acidophilu (GG)* 1 CAP CAP PO SCH ×2 (09:03→19:58)
[2017-03-26] MEDS: Cyanocobalamin TAB* 500 MCG PO SCH (09:04)
[2017-03-26] MEDS: Folic Acid TAB* 1 MG PO SCH (09:04)
[2017-03-26] MEDS: Furosemide TAB* 40 MG PO SCH (09:04)
[2017-03-26] MEDS: Pregabalin CAP(*) 50 MG PO SCH ×3 (09:05→19:58)
[2017-03-26] MEDS: Cholecalciferol TAB* 1000 UNITS PO SCH (09:05)
--- NOTE | 2017-03-26 11:04 | PN ---
Progress Note - Progress Note Date of Service: 03/26/17 SOAP: Subjective: CC: sacral wound HPI: 71 year old man with sacral decubitus ulcer, s/p debridement and vac. Loose stools , less frequent. Rash on left hip and abdomen, not itchy. thinks fungal. Objective: [] Vital Signs Temp 36.8 C 03/26/17 05:54 Pulse 79 03/26/17 05:54 Resp 18 03/26/17 09:05 BP 137/55 03/26/17 05:54 Pulse Ox 97 03/26/17 05:54 Intake & Output 03/25/17 03/26/17 03/26/17 18:59 06:59 18:59 Intake Total 993 358 230 Output Total 900 1300 Balance 93 -942 230 Intake: IV Fluids 15 60 ABX - CEFTRIAXONE 20 Flagyl 15 40 IVPB 98 298 ABX - CEFTRIAXONE 100 Flagyl 98 198 Oral 880 230 Output: Fischer 900 1300 Other: # Bowel Movements 1 Estimated Stool Amount Small Gen:awake, no distress HEENT:PERRL, MMM Neck:Supple Heart:RRR no murmur Lungs:CTA BL Abd:+BS soft non distended Skin: left hip there is an erythematous patch w scale, a couple of scattered erythematous macules on abdomen MSK: sacral vac dressing sacral cx: Bacteroides, Enterococcus Assessment: 1. polymicrobial sacral wound infection with acute osteomyelitis 2. diarrhea, most likely zosyn side effect, improving 3. paraplegia 4. rash, dermatitis ?fungal Plan: 1. ceftriaxone 2gm daily and flagyl 500 mg IV Q12hrs ; day 14/28 of IV antibiotics followed by PO treatment 2. vac dressing per surgery 3. antifungal/corticosteroid ointment 35 minutes floor time >50% face to face counseling regarding abx treatment
[2017-03-26] MEDS: Nystatin CREAM* 15 GM TUBE TOPICAL SCH ×2 (12:23→21:38)
[2017-03-26] MEDS: Triamcinolone 0.025% OINT * 15 GM TUBE TOPICAL SCH ×2 (12:23→21:38)
[2017-03-26] MEDS: oxyCODONE ORAL.SOLN* 5 MG/5 ML UDC PO PRN (12:30)
[2017-03-26] MEDS: oxyCODONE TAB* 5 MG TAB PO PRN ×2 (17:04→21:01)
[2017-03-26] MEDS: fentaNYL PATCH 75 MCG/HR* 75 MCG TRANSDERM SCH (19:40)
[2017-03-27] MEDS: metroNIDAZOLE IV 500 MG/100ML* 500 MG/100 ML BAG IVPB SCH ×2 (05:33→18:40)
[2017-03-27 06:39] LABS: Hematocrit 30 % (42-52); Mean Corpuscular HGB Conc 33 g/dl (31-36); Mean Corpuscular Hemoglobin 27 pg (27-31); Mean Corpuscular Volume 82 fL (80-94); Mean Platelet Volume 9 um3 (7.4-10.4); Red Blood Count 3.69 10^6/ul (4.0-5.4); Red Cell Distribution Width 20 % (10.5-15); White Blood Count 8.4 10^3/ul (3.5-10.8)
[2017-03-27 06:55] LABS: BUN/Creatinine Ratio 26.9 (8-20); Calcium 10.2 mg/dL (8.6-10.3); EGFR African American 61.7 (>60); Potassium 4.1 mmol/L (3.5-5.0)
[2017-03-27] MEDS: Omeprazole CAP* 20 MG PO SCH (07:21)
[2017-03-27] MEDS: fentaNYL Patch Check Q Shift 1 NOTE SCH ×3 (07:23→23:19)
--- NOTE | 2017-03-27 07:54 | PN ---
Progress Note - Progress Note Date of Service: 03/26/17 SOAP: Subjective: Out of sequence note-patient seen on 03/26/17, this note written 03/27 He is without complaint today Was OOB for a little while today His is present at the bedside Objective: Afebrile Sacral decubiti--wound is clean without odor or purulence. The surrounding skin shows some irritation. The base of the wound and some of the hidalgo are dry with dessicated tissue that is dry and fibrous. Exposed bone is present. The ulcer was debrided sharply to bleeding tissue in some areas Assessment: Sacral decubitus with osteomyelitis. I think the ulcer needs more frequent debridement and the VAC is not keeping the ulcer clean and it is drying out the ulcer bed. Plan: D/C VAC for now and start BIB wet to dry NS packing for wound care. All discussed with at the bedside.
[2017-03-27] MEDS: Zinc Sulfate CAP* 220 MG PO SCH (08:52)
[2017-03-27] MEDS: Pregabalin CAP(*) 50 MG PO SCH ×3 (08:53→20:08)
[2017-03-27] MEDS: Psyllium PAK PO SCH (08:53)
[2017-03-27] MEDS: Potassium Chlor TAB* 10 MEQ TAB.ER PO SCH (08:54)
[2017-03-27] MEDS: Furosemide TAB* 40 MG PO SCH (08:54)
[2017-03-27] MEDS: Lactobacillus Acidophilu (GG)* 1 CAP CAP PO SCH ×2 (08:54→20:08)
[2017-03-27] MEDS: Folic Acid TAB* 1 MG PO SCH (08:54)
[2017-03-27] MEDS: Cholecalciferol TAB* 1000 UNITS PO SCH (08:54)
[2017-03-27] MEDS: Ascorbic Acid TAB* 500 MG PO SCH (08:54)
[2017-03-27] MEDS: Ferrous Gluconate TAB* 324 MG TAB PO SCH ×2 (08:54→20:09)
[2017-03-27] MEDS: Cyanocobalamin TAB* 500 MCG PO SCH (08:55)
[2017-03-27] MEDS: Aspirin EC Low Dose* 81 MG TAB.EC PO SCH (08:55)
[2017-03-27] MEDS: Enoxaparin(*) 40 MG/0.4 ML SYR SUBCUT SCH (08:56)
[2017-03-27] MEDS: oxyCODONE ORAL.SOLN* 5 MG/5 ML UDC PO PRN ×2 (08:58→17:26)
[2017-03-27] MEDS: Nystatin CREAM* 15 GM TUBE TOPICAL SCH ×2 (09:00→22:05)
[2017-03-27] MEDS: Triamcinolone 0.025% OINT * 15 GM TUBE TOPICAL SCH ×2 (09:00→22:05)
[2017-03-27] MEDS: oxyCODONE TAB* 5 MG TAB PO PRN (13:07)
--- NOTE | 2017-03-27 16:17 | PN ---
Progress Note - Progress Note Date of Service: 03/27/17 SOAP: Subjective: CC: sacral wound HPI: 71 year old man with sacral decubitus ulcer, s/p debridement and vac. Loose stools , more solid, 1-3 times per day. Rash on left hip and abdomen, about the same. Vac removed by Dr Harmon today. No fever or rash. Objective: [] Vital Signs Temp 36.7 C 03/27/17 06:04 Pulse 96 03/27/17 15:48 Resp 16 03/27/17 15:48 BP 149/70 03/27/17 06:04 Pulse Ox 98 03/27/17 09:00 Intake & Output 03/26/17 03/27/17 03/27/17 18:59 06:59 18:59 Intake Total 820 120 460 Output Total 1350 925 Balance -530 -805 460 Intake: IV Fluids 20 Flagyl 20 IVPB 100 Flagyl 100 Oral 820 460 Output: Fischer 1350 925 Other: Estimated Void Medium # Bowel Movements 1 1 Estimated Stool Amount Small Small # Voids 1 Gen:awake, no distress HEENT:PERRL, MMM Neck:Supple Heart:RRR no murmur Lungs:CTA BL Abd:+BS soft non distended Skin: left hip there is an erythematous patch w scale MSK: sacral ulcer no erythema or drainage sacral cx: Bacteroides, Enterococcus Assessment: 1. polymicrobial sacral wound infection with acute osteomyelitis 2. diarrhea, most likely zosyn side effect, improving 3. paraplegia 4. rash, dermatitis ?fungal Plan: 1. ceftriaxone 2gm daily and flagyl 500 mg IV Q12hrs ; day 1528 of IV antibiotics followed by PO treatment. Orders written for outpatient IV antibiotics when ready for discharge. 2.wound dressing per surgery 3. antifungal/corticosteroid ointment
[2017-03-28] MEDS: metroNIDAZOLE IV 500 MG/100ML* 500 MG/100 ML BAG IVPB SCH ×2 (05:36→18:05)
[2017-03-28] MEDS: fentaNYL Patch Check Q Shift 1 NOTE SCH ×3 (06:51→23:13)
[2017-03-28] MEDS: oxyCODONE ORAL.SOLN* 5 MG/5 ML UDC PO PRN ×2 (07:48→17:13)
[2017-03-28] MEDS: Cholecalciferol TAB* 1000 UNITS PO SCH (09:37)
[2017-03-28] MEDS: Zinc Sulfate CAP* 220 MG PO SCH (09:37)
[2017-03-28] MEDS: Aspirin EC Low Dose* 81 MG TAB.EC PO SCH (09:37)
[2017-03-28] MEDS: Ferrous Gluconate TAB* 324 MG TAB PO SCH ×2 (09:38→21:43)
[2017-03-28] MEDS: Lactobacillus Acidophilu (GG)* 1 CAP CAP PO SCH ×2 (09:38→21:43)
[2017-03-28] MEDS: Potassium Chlor TAB* 10 MEQ TAB.ER PO SCH (09:38)
[2017-03-28] MEDS: Omeprazole CAP* 20 MG PO SCH (09:38)
[2017-03-28] MEDS: Folic Acid TAB* 1 MG PO SCH (09:38)
[2017-03-28] MEDS: Cyanocobalamin TAB* 500 MCG PO SCH (09:38)
[2017-03-28] MEDS: Furosemide TAB* 40 MG PO SCH (09:38)
[2017-03-28] MEDS: Ascorbic Acid TAB* 500 MG PO SCH (09:38)
[2017-03-28] MEDS: Pregabalin CAP(*) 50 MG PO SCH ×3 (09:39→21:43)
[2017-03-28] MEDS: Psyllium PAK PO SCH (09:39)
[2017-03-28] MEDS: Enoxaparin(*) 40 MG/0.4 ML SYR SUBCUT SCH (09:42)
[2017-03-28] MEDS: Triamcinolone 0.025% OINT * 15 GM TUBE TOPICAL SCH ×2 (09:46→21:44)
[2017-03-28] MEDS: Nystatin CREAM* 15 GM TUBE TOPICAL SCH ×2 (09:46→21:44)
[2017-03-28 10:45] LABS: C Reactive Protein 28.74 mg/L (< 5.00)
--- NOTE | 2017-03-28 11:27 | PN ---
Progress Note - Progress Note Date of Service: 03/28/17 SOAP: Subjective: Patient seen in Rehab Unit with at bedside He has been tolerating dressing changes and has no complaints. He is sitting up to eat and for short periods of exercise. Objective: Temp Pulse Resp BP Pulse Ox 98.1 F 76 18 127/69 96 03/28/17 05:49 03/28/17 05:49 03/28/17 09:46 03/28/17 05:49 03/28/17 09:45 PEX: Sacral wound is much septic tank cleaner with less fibrin and less dessication of the tissues than noted on Sunday. There remains some areas of necrotic fat mainly on the right side. There is no odor or purulence and there is no tracking noted. There is bone exposed over the midline. The surrounding skin is healthy without redness or breakdown. Wound was sharply debrided-bleeding controlled with sutures and pressure. Ulcer repacked with wet to dry gauze and covered with ABD pad. Assessment: Sacral pressure ulcer. The ulcer appears much healthier after 48 hours of wet to dry dressing and discontinuation of the wound vac. Plan: Will continue wet to dry dressings bid for now as this seems to be debriding the ulcer well. Continue IV antibiotics Offloading-allowing sitting up only for meals and exercise. I discussed all of the above with the patient and his and impressed upon them once again the complicated nature of wound care involved with pressure ulcers and the expected time frame for healing which can be up to 18 months with slow progress which can be frustrating to both patient and surgeon. I also discussed the importance of early Plastic Surgical consultation for opinion regarding wound care and his candidacy for possible wound flap or reconstruction. This service is not available here at [facility] and he would need to be seen at a tertiary care center. For now we will continue present daily wound care with sharp debridements as necessary and he will continue with his rehabilitation plan. I discussed his care with both Dr. Sexton and Dr. Pacheco this morning.
--- NOTE | 2017-03-28 11:29 | PN ---
Progress Note - Progress Note Date of Service: 03/28/17 SOAP: Subjective: CC: sacral wound HPI: 71 year old man with sacral decubitus ulcer, s/p debridement and vac. Soft stools 1-3 times per day. Rash on left hip and abdomen, about the same. Seen and examined with Dr Harmon. No fever or rash. Objective: [] Gen:awake, no distress HEENT:PERRL, MMM Neck:Supple Heart:RRR no murmur Lungs:CTA BL Abd:+BS soft non distended Skin: left hip there is an erythematous patch w scale MSK: right sacral ulcer no erythema or drainage sacral cx: Bacteroides, Enterococcus Laboratory Results - last 24 hr 03/27/17 05:35 C-Reactive Protein 28.74 H Assessment: 1. polymicrobial sacral wound infection with acute osteomyelitis 2. diarrhea, improving 3. paraplegia 4. rash, dermatitis ?fungal Plan: 1. ceftriaxone 2gm daily and flagyl 500 mg IV Q12hrs ; day 16/28 of IV antibiotics followed by PO treatment. Orders written for outpatient IV antibiotics when ready for discharge. 2.imodium prn 3. antifungal/corticosteroid ointment 35 minutes floor time >50% with patient and in counseling regarding next steps in treatment including plastics evaluation.
[2017-03-28] MEDS: oxyCODONE TAB* 5 MG TAB PO PRN (12:27)
[2017-03-28] MEDS ORDERED: Loperamide CAP* 2 MG PO PRN (17:02)
[2017-03-29] MEDS: metroNIDAZOLE IV 500 MG/100ML* 500 MG/100 ML BAG IVPB SCH (05:37)
[2017-03-29] MEDS: Omeprazole CAP* 20 MG PO SCH (06:45)
[2017-03-29] MEDS: fentaNYL Patch Check Q Shift 1 NOTE SCH ×2 (06:46→16:41)
[2017-03-29 06:52] VITALS: BP 129/61
[2017-03-29] MEDS: oxyCODONE ORAL.SOLN* 5 MG/5 ML UDC PO PRN ×2 (08:09→09:11)
[2017-03-29] MEDS ORDERED: Psyllium PAK PO SCH (09:00)
[2017-03-29] MEDS: Aspirin EC Low Dose* 81 MG TAB.EC PO SCH (09:02)
[2017-03-29] MEDS: Folic Acid TAB* 1 MG PO SCH (09:03)
[2017-03-29] MEDS: Pregabalin CAP(*) 50 MG PO SCH ×2 (09:03→14:08)
[2017-03-29] MEDS: Furosemide TAB* 40 MG PO SCH (09:04)
[2017-03-29] MEDS: Ferrous Gluconate TAB* 324 MG TAB PO SCH (09:04)
[2017-03-29] MEDS: Cyanocobalamin TAB* 500 MCG PO SCH (09:05)
[2017-03-29] MEDS: Cholecalciferol TAB* 1000 UNITS PO SCH (09:06)
[2017-03-29] MEDS: Potassium Chlor TAB* 10 MEQ TAB.ER PO SCH (09:06)
[2017-03-29] MEDS: Ascorbic Acid TAB* 500 MG PO SCH (09:06)
[2017-03-29] MEDS: Lactobacillus Acidophilu (GG)* 1 CAP CAP PO SCH (09:08)
[2017-03-29] MEDS: Enoxaparin(*) 40 MG/0.4 ML SYR SUBCUT SCH (09:09)
[2017-03-29] MEDS ORDERED: oxyCODONE TAB* 5 MG TAB PO PRN (09:51)
--- NOTE | 2017-03-29 10:14 | PN ---
Progress Note - Progress Note Date of Service: 03/29/17 SOAP: Subjective: CC: sacral wound HPI: 71 year old man with sacral decubitus ulcer, s/p debridement and vac. Soft stools few times per day, no liquid stools. Rash on left hip smaller. No fever or rash. Objective: [] Vital Signs Temp 36.9 C 03/29/17 06:51 Pulse 73 03/29/17 06:51 Resp 18 03/29/17 09:11 BP 129/61 03/29/17 06:51 Pulse Ox 97 03/29/17 06:51 Intake & Output 03/28/17 03/29/17 03/29/17 18:59 06:59 18:59 Intake Total 280 200 Output Total 1250 Balance 280 -1250 200 Intake: Oral 280 200 Output: Fischer 1250 Other: # Bowel Movements 2 Estimated Stool Amount Small Gen:awake, no distress HEENT:PERRL, MMM Neck:Supple Heart:RRR no murmur Lungs:CTA BL Abd:+BS soft non distended Skin: left hip there is an erythematous patch w scale MSK: right sacral ulcer no erythema or drainage sacral cx: Bacteroides, Enterococcus Laboratory Results - last 24 hr 03/27/17 05:35 C-Reactive Protein 28.74 H Assessment: 1. polymicrobial sacral wound infection with acute osteomyelitis 2. paraplegia 3. rash, dermatitis ?fungal Plan: 1. ceftriaxone 2gm daily and flagyl 500 mg IV Q12hrs ; day of IV antibiotics followed by PO treatment. 2.imodium prn 3. antifungal/corticosteroid ointment 35 minutes floor time >50% with patient and in counseling regarding next steps in treatment and wound management. Discussed with Dr Harmon.
[2017-03-29] MEDS: Zinc Sulfate CAP* 220 MG PO SCH (12:02)
[2017-03-29] MEDS: Triamcinolone 0.025% OINT * 15 GM TUBE TOPICAL SCH (12:04)
[2017-03-29] MEDS: Nystatin CREAM* 15 GM TUBE TOPICAL SCH (12:04)
[2017-03-29] MEDS ORDERED: metroNIDAZOLE TAB* 250 MG PO SCH (21:00)
--- NOTE | 2017-03-30 09:52 | TRS ---
TRANSFER SUMMARY: DATE OF ADMISSION: 03/21/17 DATE OF TRANSFER: 03/29/17 DISCHARGE DIAGNOSES: 1. Ependymoma with paraplegia. 2. Decubitus ulcer. 3. Sepsis. 4. Neurogenic bladder. 5. Neurogenic bowel. 6. Diarrhea. 7. Obstructive sleep apnea. 8. Chronic kidney disease stage 3. 9. Asthma. HISTORY OF PRESENT ILLNESS AND HOSPITAL COURSE: For complete history of the events leading up to his rehab stay, please see the history and physical dictated by me on 03/21/17. While on the rehab unit, the patient was seen in followup by Dr. Sexton from Infectious Disease. His antibiotics were changed to ceftriaxone and Flagyl. This was to help deal with his diarrhea. This was successful in helping slow his diarrhea. In addition, Metamucil was added as a bulking agent. This also seemed to help with his diarrhea. His wound did not change greatly while on the rehab unit. It remained a large deep decubitus ulcer but looked clean in appearance. His VAC dressing was discontinued by Dr. Harmon who saw him in followup while on the rehab unit. He was changed to wet to dry normal saline packing for wound care. The patient had developed a rash over his skin which appeared to be either allergic or fungal in appearance. He was given a steroid cream, triamcinolone cream, and later was tried on an antifungal agent for this. While on the rehab unit the patient worked on transferring out of bed and sitting up. Because of pain he was only able to sit up for about half an hour. Transfers were dependent using a Laila lift. He did attempt a slide board transfer, but it was felt with decubitus ulcers slide boards were not in his best interest. The patient worked with physical therapy and occupational therapy while on the rehab unit. He made modest gains. As mentioned, he was able to sit up for about a half an hour with therapists. The patient worked on his activities of daily living as well. He was able to make sudden gains with upper body dressing, but remained totally dependent for lower body dressing. Due to his diarrhea, he had a lot of difficulty with toileting himself and was not able to make gains in that area. He remained with a Fischer catheter while on the rehab unit. It was decided that the patient should go to a swing bed in order to undergo continued nursing care, as it did not seem that the patient's would be able to take him home at the present time. Further arrangements for pressure relieving bed will be made on the swing bed unit. The patient will continue on IV antibiotics as well as oral Flagyl. He will also continue on wet to dry dressings. DISCHARGE DIET: Regular. DISCHARGE MEDICATIONS: 1. Vitamin C 500 mg daily. 2. Aspirin 81 mg daily. 3. Ceftriaxone 2 g intravenously daily. 4. Vitamin D 5000 units daily. 5. Vitamin B12 of 1000 units daily. 6. Lovenox 40 mg subcutaneously every day. 7. Fentanyl patch 75 mcg an hour applying to the skin and changing every 72 hours. 8. Folic acid 0.5 mg daily. 9. Iron, ferrous gluconate 324 mg twice a day. 10. Lasix 40 mg daily. 11. Culturelle 1 capsule twice a day. 12. Imodium 2 mg every 4 hours as needed. 13. Flagyl 500 mg twice a day. 14. Nystatin cream to his rash twice a day. 15. Prilosec 40 mg daily. 16. Oxycodone oral solution 5 mg every 6 hours prior to transfers and oxycodone 5 mg every 4 hours as needed for moderate to severe pain. 17. Potassium chloride tablets 10 mEq daily. 18. Lyrica 150 mg 3 times a day. 19. Metamucil 1 packet daily. 20. Zinc sulfate 220 mg daily. 21. Triamcinolone cream to the rash twice a day. SERVICES AFTER DISCHARGE: Physical therapy will work with the patient at wound care. FOLLOWUP: The patient can follow up with Dr. Griffiths his primary care doctor after discharge from the swing bed unit. He will be seen by Dr. Harmon and Dr. Sexton as well as by the hospitalist service. [id number]/[id number] #: [id number] MTDD
== END 2017-03-29 17:50 | disposition swing bed (61) | DRG 570 ==
LOC: PMRU 03-21 14:27
PROVIDERS: ADMIT Physical Medicine & Rehabilitation; ATTEND Physical Medicine & Rehabilitation
PROC: 2W15X6Z Compression of Back using Pressure Dressing (ICD-10-PCS; 2017-03-21)
PROC: F07Z5ZZ Bed Mobility Treatment (ICD-10-PCS; 2017-03-21)
PROC: F07Z8ZZ Transfer Training Treatment (ICD-10-PCS; 2017-03-21)
PROC: F07Z4ZZ Wheelchair Mobility Treatment (ICD-10-PCS; 2017-03-21)
PROC: F08Z0ZZ Bathing/Showering Techniques Treatment (ICD-10-PCS; 2017-03-21)
PROC: F08Z1ZZ Dressing Techniques Treatment (ICD-10-PCS; 2017-03-21)
PROC: F08Z3ZZ Feeding/Eating Treatment (ICD-10-PCS; 2017-03-21)
PROC: 02HV33Z Insertion of Infusion Device into Superior Vena Cava, Percutaneous Approach (ICD-10-PCS; 2017-03-21)
PROC: 0JB70ZZ Excision of Back Subcutaneous Tissue and Fascia, Open Approach (ICD-10-PCS; principal; 2017-03-28)
DX: L89.153 Pressure ulcer of sacral region, stage 3 (principal); L89.154 Pressure ulcer of sacral region, stage 4; G82.20 Paraplegia, unspecified; C41.2 Malignant neoplasm of vertebral column; K59.2 Neurogenic bowel, not elsewhere classified; I13.10 Hypertensive heart and chronic kidney disease without heart failure, with stage 1 through stage 4 chronic kidney disease, or unspecified chronic kidney disease; M46.28 Osteomyelitis of vertebra, sacral and sacrococcygeal region; N31.9 Neuromuscular dysfunction of bladder, unspecified; L08.9 Local infection of the skin and subcutaneous tissue, unspecified; R19.7 Diarrhea, unspecified; G47.33 Obstructive sleep apnea (adult) (pediatric); N18.3 Chronic kidney disease, stage 3 (moderate); I25.10 Atherosclerotic heart disease of native coronary artery without angina pectoris; K21.9 Gastro-esophageal reflux disease without esophagitis; J45.909 Unspecified asthma, uncomplicated; Z79.82 Long term (current) use of aspirin; Z79.891 Long term (current) use of opiate analgesic; Z79.899 Other long term (current) drug therapy; Z88.8 Allergy status to other drugs, medicaments and biological substances; B96.89 Other specified bacterial agents as the cause of diseases classified elsewhere; R21 Rash and other nonspecific skin eruption; B96.6 Bacteroides fragilis [B. fragilis] as the cause of diseases classified elsewhere; B95.2 Enterococcus as the cause of diseases classified elsewhere
CPT/HCPCS: 36415; 80048; 80053; 85025; 86140; 90686; A9270-GY; J0696; J1642; J1650; J2543

== ENCOUNTER 2017-03-29 13:04 | Inpatient (IN) | payer MEDICARE ==
[2017-03-29] MEDS ORDERED: Docusate CAP* 100 MG PO PRN (17:50)
[2017-03-29] MEDS ORDERED: Bisacodyl SUPP* 10 MG SUPP PR PRN (17:50)
[2017-03-29] MEDS ORDERED: Acetaminophen TAB* 325 MG PO PRN (17:52)
[2017-03-29] MEDS ORDERED: Ondansetron ODT TAB* 4 MG PO PRN (17:53)
[2017-03-29] MEDS: fentaNYL PATCH 75 MCG/HR* 75 MCG TRANSDERM SCH (19:18)
[2017-03-29] MEDS: fentaNYL Patch Check Q Shift 1 NOTE SCH (19:21)
[2017-03-29] MEDS: Lactobacillus Acidophilu (GG)* 1 CAP CAP PO SCH (21:42)
[2017-03-29] MEDS: Ferrous Gluconate TAB* 324 MG TAB PO SCH (21:42)
[2017-03-29] MEDS: Pregabalin CAP(*) 50 MG PO SCH (21:43)
[2017-03-29] MEDS: metroNIDAZOLE TAB* 250 MG PO SCH (21:43)
[2017-03-29] MEDS: Triamcinolone 0.025% OINT * 15 GM TUBE TOPICAL SCH (21:45)
[2017-03-29] MEDS: Nystatin CREAM* 15 GM TUBE TOPICAL SCH (21:45)
[2017-03-30] MEDS: Omeprazole CAP* 20 MG PO SCH (05:48)
[2017-03-30 05:52] LABS: Hematocrit 30 % (42-52); Hemoglobin 9.9 g/dl (14.0-18.0); Mean Corpuscular HGB Conc 33 g/dl (31-36); Mean Corpuscular Hemoglobin 27 pg (27-31); Mean Corpuscular Volume 82 fL (80-94); Mean Platelet Volume 8 um3 (7.4-10.4); Red Blood Count 3.64 10^6/ul (4.0-5.4); Red Cell Distribution Width 19 % (10.5-15); White Blood Count 7.9 10^3/ul (3.5-10.8)
[2017-03-30 06:17] LABS: Calcium 9.9 mg/dL (8.6-10.3); EGFR African American 72.6 (>60); EGFR Non-African American 56.4 (>60); Globulin 2.7 g/dL (2-4); Potassium 4.1 mmol/L (3.5-5.0); Total Bilirubin 0.3 mg/dL (0.2-1.0); Total Protein 5.7 g/dL (6.4-8.9)
[2017-03-30] MEDS: fentaNYL Patch Check Q Shift 1 NOTE SCH ×2 (07:13→18:41)
[2017-03-30] MEDS: Cholecalciferol TAB* 1000 UNITS PO SCH (09:17)
[2017-03-30] MEDS: Zinc Sulfate CAP* 220 MG PO SCH (09:17)
[2017-03-30] MEDS: Aspirin EC Low Dose* 81 MG TAB.EC PO SCH (09:17)
[2017-03-30] MEDS: Lactobacillus Acidophilu (GG)* 1 CAP CAP PO SCH ×2 (09:18→20:07)
[2017-03-30] MEDS: Cyanocobalamin TAB* 500 MCG PO SCH (09:18)
[2017-03-30] MEDS: Furosemide TAB* 40 MG PO SCH (09:18)
[2017-03-30] MEDS: Potassium Chlor TAB* 10 MEQ TAB.ER PO SCH (09:18)
[2017-03-30] MEDS: metroNIDAZOLE TAB* 250 MG PO SCH ×2 (09:18→20:07)
[2017-03-30] MEDS: Pregabalin CAP(*) 50 MG PO SCH ×3 (09:18→20:52)
[2017-03-30] MEDS: Psyllium PAK PO SCH (09:19)
[2017-03-30] MEDS: Folic Acid TAB* 1 MG PO SCH (09:24)
[2017-03-30] MEDS: Ferrous Gluconate TAB* 324 MG TAB PO SCH ×2 (09:25→20:07)
[2017-03-30] MEDS: Triamcinolone 0.025% OINT * 15 GM TUBE TOPICAL SCH ×2 (09:27→20:09)
[2017-03-30] MEDS: Nystatin CREAM* 15 GM TUBE TOPICAL SCH ×2 (09:27→20:10)
[2017-03-30] MEDS: oxyCODONE ORAL.SOLN* 5 MG/5 ML UDC PO PRN ×2 (13:17→20:08)
--- NOTE | 2017-03-30 18:08 | PN ---
Subjective Date of Service: 03/30/17 Interval History: . Extensive meetings with patient and family Now on [facility] for continued rehabilitation, pain control, wound care Nursing staff is vigilantly turning patient Discussed a few items - goal to use wheelchair to bring patient outside -- will discuss with rehab team - ongoing wound care supervised/led by Dr. Harmon - ongoing PT/OT daily - frequent (1-2 hr max) turning and positioning - vigilant nutrition - protein is a must! - DME arrangements for discharge -- I discussed a mobile wheelchair with patient today. . Family History: Unchanged from Admission Social History: Unchanged from Admission Past Medical History: Unchanged from Admission Objective Active Medications: . Acetaminophen (Tylenol Tab*) 650 mg PO Q6H PRN PRN Reason: FEVER/PAIN Aspirin (Aspirin Ec Low Dose*) 81 mg PO DAILY [facility] Last Admin: 03/30/17 09:17 Dose: 81 mg Bisacodyl (Dulcolax Supp*) 10 mg [place] DAILY PRN PRN Reason: CONSTIPATION Cholecalciferol (Vitamin D Tab*) 5,000 units PO DAILY [facility] Last Admin: 03/30/17 09:17 Dose: 5,000 units Cyanocobalamin (Vitamin B12 Tab*) 1,000 mcg PO DAILY [facility] Last Admin: 03/30/17 09:18 Dose: 1,000 mcg Docusate Sodium (Colace Cap*) 100 mg PO BID PRN PRN Reason: CONSTIPATION Fentanyl (Duragesic Patch 75 Mcg/Hr*) 75 mcg TRANSDERM Q72H [facility] Last Admin: 03/29/17 19:18 Dose: 75 mcg Ferrous Gluconate (Fergon Tab*) 324 mg PO BID [facility] Last Admin: 03/30/17 09:25 Dose: 324 mg Folic Acid (Folvite Tab*) 0.5 mg PO DAILY [facility] Last Admin: 03/30/17 09:24 Dose: 0.5 mg Furosemide (Lasix Tab*) 40 mg PO DAILY [facility] Last Admin: 03/30/17 09:18 Dose: 40 mg Heparin Sodium (Porcine) (Heparin Flush Picc/Ml/Cvc(*)) 1 ml FLUSH 0600,1800 RADHA PRN Reason: Protocol Last Admin: 03/30/17 17:49 Dose: Not Given Ceftriaxone Sodium 2 gm/ (Sodium Chloride) 100 mls @ 200 mls/hr IVPB DAILY [facility] Last Admin: 03/30/17 09:18 Dose: 200 mls/hr Lactobacillus Rhamnosus (Culturelle*) 1 cap PO BID [facility] Last Admin: 03/30/17 09:18 Dose: 1 cap Loperamide HCl (Imodium Cap*) 2 mg PO .SEE DIRECTIONS PRN PRN Reason: DIARRHEA Metronidazole (Flagyl Tab*) 500 mg PO BID [facility] Last Admin: 03/30/17 09:18 Dose: 500 mg Nystatin (Nystatin Cream*) 1 applic TOPICAL BID [facility] Last Admin: 03/30/17 09:27 Dose: 1 applic Omeprazole (Prilosec Cap*) 40 mg PO DAILY@0600 [facility] Last Admin: 03/30/17 05:48 Dose: 40 mg Ondansetron HCl (Zofran Odt Tab*) 4 mg PO Q8H PRN PRN Reason: NAUSEA/VOMITING Oxycodone HCl (Oxycodone Oral.Soln*) 5 mg PO Q6H PRN PRN Reason: PAIN - MODERATE TO SEVERE Last Admin: 03/30/17 13:17 Dose: 5 mg Oxycodone HCl (Roxycodone Tab*) 5 mg PO Q4H PRN PRN Reason: PAIN - MODERATE TO SEVERE Pharmacy Profile Note (Fentanyl Patch Check Q Shift) 1 note N/A 0700,1900 [facility] Last Admin: 03/30/17 07:13 Dose: 1 note Potassium Chloride (Klor Con Er Tab*) 10 meq PO DAILY [facility] Last Admin: 03/30/17 09:18 Dose: 10 meq Pregabalin (Lyrica Cap(*)) 150 mg PO TID [facility] Last Admin: 03/30/17 13:18 Dose: 150 mg Psyllium Hydrophilic Mucilloid (Metamucil Young*) 1 pkt PO DAILY [facility] Last Admin: 03/30/17 09:19 Dose: 1 pkt Triamcinolone Acetonide (Triamcinolone 0.025% Oint *) 1 applic TOPICAL BID [facility] Last Admin: 03/30/17 09:27 Dose: 1 applic Zinc Sulfate (Zinc-220 Cap*) 220 mg PO DAILY [facility] Last Admin: 03/30/17 09:17 Dose: 220 mg . Vital Signs 03/29/17 03/29/17 03/29/17 18:29 19:48 21:25 Temperature 98.6 F 99.0 F Pulse Rate 85 84 Respiratory 18 16 16 Rate Blood Pressure 130/48 154/60 (mmHg) O2 Sat by Pulse 97 97 Oximetry 03/29/17 03/29/17 03/29/17 21:43 21:50 23:40 Temperature 98.5 F Pulse Rate 85 Respiratory 16 16 14 Rate Blood Pressure 133/52 (mmHg) O2 Sat by Pulse 93 Oximetry Oxygen Devices in Use Now: Nasal Cannula Appearance: better spirits today. A&Ox3. Eyes: No Scleral Icterus Ears/Nose/Mouth/Throat: Clear Oropharnyx Neck: Trachea Midline Respiratory: Symmetrical Chest Expansion and Respiratory Effort Cardiovascular: NL Sounds; No Murmurs; No JVD Abdominal: NL Sounds; No Tenderness; No Distention Lymphatic: No Cervical Adenopathy Extremities: - - poor lower extremity muscle bulk. Skin: - - large covered sacral decubitus ulcer. Not undressed on my visit. Neurological: Alert and Oriented x 3, NL Sensation Lines/Tubes/Other Access: Clean, Dry and Intact PICC Line Nutrition: Taking PO's Result Diagrams: 03/30/17 05:40 03/30/17 05:40 Assess/Plan/Problems-Billing . Assessment: 71 yo man with extreme pain chronically secondary to ependymoma. Now with large sacral decubitus ulcer associated with pressure injury. Accompanying debilitation associated with recent hospitalization. - Patient Problems (1) Back pain Current Visit: No Status: Chronic Priority: High Code(s): M54.9 - DORSALGIA, UNSPECIFIED Comment: - continue opiate regimen. - assess for over sedation daily (2) Sacral decubitus ulcer, stage IV Current Visit: No Status: Chronic Priority: High Code(s): L89.154 - PRESSURE ULCER OF SACRAL REGION, STAGE 4 Comment: - continuing wound care - appreciate nutrition recommendations to support healing. (3) CKD (chronic kidney disease), stage III Current Visit: No Status: Chronic Code(s): N18.3 - CHRONIC KIDNEY DISEASE, STAGE 3 (MODERATE) SNOMED Code(s): 989557143 Comment: Creatinine within baseline Baseline creatinine appears to be between 1.3 and 1.5 Avoid nephrotoxic medications (4) Ependymoma Current Visit: No Status: Chronic Priority: High Code(s): C71.9 - MALIGNANT NEOPLASM OF BRAIN, UNSPECIFIED Comment: - To the spine (dx in patient's 20s) - With concurrent chronic back pain and inability to ambulate - s/p multiple surgeries - back anatomy puts patient at much higher risk for pressure ulcer formation, as does high opiate requirements and fragility with easily atained infections ( pneumonia / urinary tract infections). UTI's in particular are a high risk given his neurogenic bladder and indwelling arriaga catheter.
[2017-03-30] MEDS: oxyCODONE TAB* 5 MG TAB PO PRN (18:26)
[2017-03-30] MEDS: Loperamide CAP* 2 MG PO PRN (20:08)
[2017-03-31] MEDS: Omeprazole CAP* 20 MG PO SCH (06:04)
[2017-03-31] MEDS: fentaNYL Patch Check Q Shift 1 NOTE SCH ×2 (06:49→18:51)
[2017-03-31] MEDS: Lactobacillus Acidophilu (GG)* 1 CAP CAP PO SCH ×2 (09:18→20:56)
[2017-03-31] MEDS: Cyanocobalamin TAB* 500 MCG PO SCH (09:18)
[2017-03-31] MEDS: metroNIDAZOLE TAB* 250 MG PO SCH ×2 (09:18→20:56)
[2017-03-31] MEDS: Zinc Sulfate CAP* 220 MG PO SCH (09:18)
[2017-03-31] MEDS: Potassium Chlor TAB* 10 MEQ TAB.ER PO SCH (09:18)
[2017-03-31] MEDS: Cholecalciferol TAB* 1000 UNITS PO SCH (09:18)
[2017-03-31] MEDS: Folic Acid TAB* 1 MG PO SCH (09:18)
[2017-03-31] MEDS: Aspirin EC Low Dose* 81 MG TAB.EC PO SCH (09:18)
[2017-03-31] MEDS: Ferrous Gluconate TAB* 324 MG TAB PO SCH ×2 (09:19→20:56)
[2017-03-31] MEDS: Pregabalin CAP(*) 50 MG PO SCH ×3 (09:19→21:26)
[2017-03-31] MEDS: Furosemide TAB* 40 MG PO SCH (09:19)
[2017-03-31] MEDS: Nystatin CREAM* 15 GM TUBE TOPICAL SCH ×2 (09:24→21:25)
[2017-03-31] MEDS: Psyllium PAK PO SCH (09:24)
[2017-03-31] MEDS: Triamcinolone 0.025% OINT * 15 GM TUBE TOPICAL SCH ×2 (09:25→21:25)
--- NOTE | 2017-03-31 12:18 | ADMNOTE ---
Subjective Date of Service: 03/29/17 Interval History: . Extensive meeting with patient's , Deedee Merino, to outline the goals of this hospitalization. In essence, the patient will receive ongoing wound care and engage in ongoing rehabilitation efforts for the ultimate goal of returning to the ambulatory environment. He is currently requiring a level of care that is not possible to deliver with his current home resources. Large pressure ulcer in sacral area, well defined prior to now with aggressive nursing and surgical involvement. At this time, Mr. Merino is depressed and debilitated, but otherwise at his baseline. He has a current pain regimen that is effective at achieving adequate pain control while not altering his sensorium and putting him at risk for associated complications. His supine positioning has created tendency for vomiting, and so his daily intake will be split into 6 smaller meals. Also, nutrition efforts ongoing to increase amount of protein for better wound healing. he is on an array of vitamins to promote skin healing. He is on an aggressive turning and positioning schedule (no longer than every 2 hours, but more frequently if possible). Uses night BiPAP for MATY. Patient may be experiencing some adjustment disorder / demoralization / depression relating to his current situation. His reports she has never seen him cry in over 40 years, but has now seen him very tearful recently. PAST MEDICAL HISTORY - Ependymoma - Large, Stage IV sacral decubitus ulcer - Sepsis secondary to decubitus ulcer, now resolved - Neurogenic bowel and bladder - History of multiple back surgeries - Obstructive Sleep Apnea - on home BiPAP - Chronic Renal failure - Stage III - Intrinsic Asthma - Diarrhea associated with antibiotics (not C. Diff) Family History: Unchanged from Admission Social History: Unchanged from Admission - no changes noted Past Medical History: Unchanged from Admission Review of Systems - Measurements Intake and Output: . Intake and Output Last 24 Hours 03/29/17 03/30/17 03/31/17 04/01/17 06:59 06:59 06:59 06:59 Intake Total 600 1580 780 Output Total 725 1950 Balance -125 -370 780 Weight 97.522 kg Intake: IV Fluids 40 NS (0.9%) 40 IVPB 50 ABX - CEFTRIAXONE 50 Oral 600 1490 780 Output: Arriaga 725 1950 Other: Date of Last Bowel 03/30/17 Movement # Bowel Movements 1 Estimated Stool Amount Small - Review of Systems Constitutional Symptoms: Negative: Weight Gain Dermatology: Positive: Skin Lesions - large sacral debubitus ulcer HEENT: Negative: Change in Hearing Eyes: Positive: Normal Thyroid: Positive: Normal Pulmonary: Positive: Asthma Negative: Cough, Hemoptysis, Wheezing Cardiology: Positive: Normal Gastroenterology: Positive: Other - loose stools Genital - Urinary: Positive: Other - urinary catheter in place Endocrinology: Positive: Normal Hematologic/Lymphatic: Positive: Anemia - baseline Neurology: Positive: Normal, Other - 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 Allergic/Immunologic: Positive: Athsma Negative: Hx Anaphylaxis, Hx Angioedema Objective Active Medications: Acetaminophen (Tylenol Tab*) 650 mg PO Q6H PRN PRN Reason: FEVER/PAIN Aspirin (Aspirin Ec Low Dose*) 81 mg PO DAILY [facility] Last Admin: 03/31/17 09:18 Dose: 81 mg Bisacodyl (Dulcolax Supp*) 10 mg [place] DAILY PRN PRN Reason: CONSTIPATION Cholecalciferol (Vitamin D Tab*) 5,000 units PO DAILY [facility] Last Admin: 03/31/17 09:18 Dose: 5,000 units Cyanocobalamin (Vitamin B12 Tab*) 1,000 mcg PO DAILY [facility] Last Admin: 03/31/17 09:18 Dose: 1,000 mcg Docusate Sodium (Colace Cap*) 100 mg PO BID PRN PRN Reason: CONSTIPATION Fentanyl (Duragesic Patch 75 Mcg/Hr*) 75 mcg TRANSDERM Q72H [facility] Last Admin: 03/29/17 19:18 Dose: 75 mcg Ferrous Gluconate (Fergon Tab*) 324 mg PO BID [facility] Last Admin: 03/31/17 09:19 Dose: 324 mg Folic Acid (Folvite Tab*) 0.5 mg PO DAILY [facility] Last Admin: 03/31/17 09:18 Dose: 0.5 mg Furosemide (Lasix Tab*) 40 mg PO DAILY [facility] Last Admin: 03/31/17 09:19 Dose: 40 mg Heparin Sodium (Porcine) (Heparin Flush Picc/Ml/Cvc(*)) 1 ml FLUSH 0600,1800 RADHA PRN Reason: Protocol Last Admin: 03/31/17 10:54 Dose: 1 ml Ceftriaxone Sodium 2 gm/ (Sodium Chloride) 100 mls @ 200 mls/hr IVPB DAILY [facility] Last Admin: 03/31/17 09:24 Dose: 200 mls/hr Lactobacillus Rhamnosus (Culturelle*) 1 cap PO BID [facility] Last Admin: 03/31/17 09:18 Dose: 1 cap Loperamide HCl (Imodium Cap*) 2 mg PO .SEE DIRECTIONS PRN PRN Reason: DIARRHEA Last Admin: 03/30/17 20:08 Dose: 2 mg Metronidazole (Flagyl Tab*) 500 mg PO BID [facility] Last Admin: 03/31/17 09:18 Dose: 500 mg Nystatin (Nystatin Cream*) 1 applic TOPICAL BID [facility] Last Admin: 03/31/17 09:24 Dose: 1 applic Omeprazole (Prilosec Cap*) 40 mg PO DAILY@0600 [facility] Last Admin: 03/31/17 06:04 Dose: 40 mg Ondansetron HCl (Zofran Odt Tab*) 4 mg PO Q8H PRN PRN Reason: NAUSEA/VOMITING Oxycodone HCl (Oxycodone Oral.Soln*) 5 mg PO Q6H PRN PRN Reason: PAIN - MODERATE TO SEVERE Last Admin: 03/30/17 20:08 Dose: 5 mg Oxycodone HCl (Roxycodone Tab*) 5 mg PO Q4H PRN PRN Reason: PAIN - MODERATE TO SEVERE Last Admin: 03/30/17 18:26 Dose: 5 mg Pharmacy Profile Note (Fentanyl Patch Check Q Shift) 1 note N/A 0700,1900 [facility] Last Admin: 03/31/17 06:49 Dose: 1 note Potassium Chloride (Klor Con Er Tab*) 10 meq PO DAILY [facility] Last Admin: 03/31/17 09:18 Dose: 10 meq Pregabalin (Lyrica Cap(*)) 150 mg PO TID [facility] Last Admin: 03/31/17 09:19 Dose: 150 mg Psyllium Hydrophilic Mucilloid (Metamucil Young*) 1 pkt PO DAILY [facility] Last Admin: 03/31/17 09:24 Dose: Not Given Triamcinolone Acetonide (Triamcinolone 0.025% Oint *) 1 applic TOPICAL BID [facility] Last Admin: 03/31/17 09:25 Dose: 1 applic Zinc Sulfate (Zinc-220 Cap*) 220 mg PO DAILY [facility] Last Admin: 03/31/17 09:18 Dose: 220 mg Vital Signs 03/30/17 03/30/17 03/30/17 13:17 13:18 15:17 Temperature Pulse Rate Respiratory 18 18 18 Rate Blood Pressure (mmHg) O2 Sat by Pulse Oximetry 03/30/17 03/30/17 03/30/17 15:18 15:57 18:26 Temperature 98.6 F Pulse Rate 81 Respiratory 18 15 18 Rate Blood Pressure 145/55 (mmHg) O2 Sat by Pulse 97 Oximetry Oxygen Devices in Use Now: Nasal Cannula Eyes: No Scleral Icterus Ears/Nose/Mouth/Throat: Clear Oropharnyx Neck: Trachea Midline Respiratory: Symmetrical Chest Expansion and Respiratory Effort Cardiovascular: NL Sounds; No Murmurs; No JVD Abdominal: NL Sounds; No Tenderness; No Distention Lymphatic: No Cervical Adenopathy Extremities: - - sascral decubitus ulcer - stage IV Skin: - - sacral decubitus ulcer- stage IV Neurological: Alert and Oriented x 3 Lines/Tubes/Other Access: Clean, Dry and Intact Peripheral IV Nutrition: Taking PO's Result Diagrams: 03/30/17 05:40 03/30/17 05:40 Assess/Plan/Problems-Billing . Assessment: 71 yo man with extreme pain chronically secondary to ependymoma. Now with large sacral decubitus ulcer associated with pressure injury. Accompanying debilitation associated with recent hospitalization. - Patient Problems (1) Back pain Current Visit: No Status: Chronic Priority: High Code(s): M54.9 - DORSALGIA, UNSPECIFIED Comment: - continue opiate regimen. - assess for over sedation daily (2) Sacral decubitus ulcer, stage IV Current Visit: No Status: Chronic Priority: High Code(s): L89.154 - PRESSURE ULCER OF SACRAL REGION, STAGE 4 Comment: - continuing wound care - appreciate nutrition recommendations to support healing. (3) CKD (chronic kidney disease), stage III Current Visit: No Status: Chronic Code(s): N18.3 - CHRONIC KIDNEY DISEASE, STAGE 3 (MODERATE) SNOMED Code(s): 084335544 Comment: Creatinine within baseline Baseline creatinine appears to be between 1.3 and 1.5 Avoid nephrotoxic medications (4) Ependymoma Current Visit: No Status: Chronic Priority: High Code(s): C71.9 - MALIGNANT NEOPLASM OF BRAIN, UNSPECIFIED Comment: - To the spine (dx in patient's 20s) - With concurrent chronic back pain and inability to ambulate - s/p multiple surgeries - back anatomy puts patient at much higher risk for pressure ulcer formation, as does high opiate requirements and fragility with easily acquired infections ( pneumonia / urinary tract infections). UTI's in particular are a high risk given his neurogenic bladder and indwelling arriaga catheter.
--- NOTE | 2017-03-31 12:35 | PN ---
Subjective Date of Service: 03/31/17 Interval History: . Rounded on patient in early AM. Was sleeping peacefully -- had just been turned by nursing -- wound looked about the same, by report (did not see it today) Plan for possibly using wheelchair to go outside for a short while...honoring the pressure-avoidance goal. He does have a wheelchair cushion that is quite effective, and that would be used. Re-iterated that goal for next week is to work out how to attain plastic surgery consult as outpatient. . Family History: Unchanged from Admission Social History: Unchanged from Admission - no changes noted Past Medical History: Unchanged from Admission Objective Active Medications: . Acetaminophen (Tylenol Tab*) 650 mg PO Q6H PRN PRN Reason: FEVER/PAIN Aspirin (Aspirin Ec Low Dose*) 81 mg PO DAILY [facility] Last Admin: 03/31/17 09:18 Dose: 81 mg Bisacodyl (Dulcolax Supp*) 10 mg [place] DAILY PRN PRN Reason: CONSTIPATION Cholecalciferol (Vitamin D Tab*) 5,000 units PO DAILY [facility] Last Admin: 03/31/17 09:18 Dose: 5,000 units Cyanocobalamin (Vitamin B12 Tab*) 1,000 mcg PO DAILY [facility] Last Admin: 03/31/17 09:18 Dose: 1,000 mcg Docusate Sodium (Colace Cap*) 100 mg PO BID PRN PRN Reason: CONSTIPATION Fentanyl (Duragesic Patch 75 Mcg/Hr*) 75 mcg TRANSDERM Q72H [facility] Last Admin: 03/29/17 19:18 Dose: 75 mcg Ferrous Gluconate (Fergon Tab*) 324 mg PO BID [facility] Last Admin: 03/31/17 09:19 Dose: 324 mg Folic Acid (Folvite Tab*) 0.5 mg PO DAILY [facility] Last Admin: 03/31/17 09:18 Dose: 0.5 mg Furosemide (Lasix Tab*) 40 mg PO DAILY [facility] Last Admin: 03/31/17 09:19 Dose: 40 mg Heparin Sodium (Porcine) (Heparin Flush Picc/Ml/Cvc(*)) 1 ml FLUSH 0600,1800 RADHA PRN Reason: Protocol Last Admin: 03/31/17 10:54 Dose: 1 ml Ceftriaxone Sodium 2 gm/ (Sodium Chloride) 100 mls @ 200 mls/hr IVPB DAILY [facility] Last Admin: 03/31/17 09:24 Dose: 200 mls/hr Lactobacillus Rhamnosus (Culturelle*) 1 cap PO BID [facility] Last Admin: 03/31/17 09:18 Dose: 1 cap Loperamide HCl (Imodium Cap*) 2 mg PO .SEE DIRECTIONS PRN PRN Reason: DIARRHEA Last Admin: 03/30/17 20:08 Dose: 2 mg Metronidazole (Flagyl Tab*) 500 mg PO BID [facility] Last Admin: 03/31/17 09:18 Dose: 500 mg Nystatin (Nystatin Cream*) 1 applic TOPICAL BID [facility] Last Admin: 03/31/17 09:24 Dose: 1 applic Omeprazole (Prilosec Cap*) 40 mg PO DAILY@0600 [facility] Last Admin: 03/31/17 06:04 Dose: 40 mg Ondansetron HCl (Zofran Odt Tab*) 4 mg PO Q8H PRN PRN Reason: NAUSEA/VOMITING Oxycodone HCl (Oxycodone Oral.Soln*) 5 mg PO Q6H PRN PRN Reason: PAIN - MODERATE TO SEVERE Last Admin: 03/30/17 20:08 Dose: 5 mg Oxycodone HCl (Roxycodone Tab*) 5 mg PO Q4H PRN PRN Reason: PAIN - MODERATE TO SEVERE Last Admin: 03/30/17 18:26 Dose: 5 mg Pharmacy Profile Note (Fentanyl Patch Check Q Shift) 1 note N/A 0700,1900 [facility] Last Admin: 03/31/17 06:49 Dose: 1 note Potassium Chloride (Klor Con Er Tab*) 10 meq PO DAILY [facility] Last Admin: 03/31/17 09:18 Dose: 10 meq Pregabalin (Lyrica Cap(*)) 150 mg PO TID [facility] Last Admin: 03/31/17 09:19 Dose: 150 mg Psyllium Hydrophilic Mucilloid (Metamucil Young*) 1 pkt PO DAILY [facility] Last Admin: 03/31/17 09:24 Dose: Not Given Triamcinolone Acetonide (Triamcinolone 0.025% Oint *) 1 applic TOPICAL BID [facility] Last Admin: 03/31/17 09:25 Dose: 1 applic Zinc Sulfate (Zinc-220 Cap*) 220 mg PO DAILY [facility] Last Admin: 03/31/17 09:18 Dose: 220 mg . Vital Signs 03/31/17 03/31/17 03/31/17 00:08 03:20 07:27 Temperature 97.7 F 97.5 F Pulse Rate 74 72 Respiratory 16 16 18 Rate Blood Pressure 120/56 111/55 (mmHg) O2 Sat by Pulse 93 98 Oximetry 03/31/17 03/31/17 03/31/17 07:57 09:19 10:58 Temperature 98.2 F Pulse Rate 72 Respiratory 14 18 18 Rate Blood Pressure 129/60 (mmHg) O2 Sat by Pulse 91 Oximetry Oxygen Devices in Use Now: Nasal Cannula Appearance: NAD; lying on side, sleeping Eyes: No Scleral Icterus Ears/Nose/Mouth/Throat: Clear Oropharnyx Neck: Trachea Midline Respiratory: Symmetrical Chest Expansion and Respiratory Effort Cardiovascular: NL Sounds; No Murmurs; No JVD Abdominal: NL Sounds; No Tenderness; No Distention Lymphatic: No Cervical Adenopathy Extremities: No Edema, - - paraplegic Skin: - - large Stage IV sacaral ulcer- dressed Neurological: Alert and Oriented x 3 - but sleeping when I entered Lines/Tubes/Other Access: Clean, Dry and Intact PICC Line Nutrition: Taking PO's Result Diagrams: 03/30/17 05:40 03/30/17 05:40 Assess/Plan/Problems-Billing . Assessment: 71 yo man with extreme pain chronically secondary to Ependymoma. Now with large sacral decubitus ulcer associated with pressure injury. Accompanying debilitation associated with recent hospitalization. - Patient Problems (1) Back pain Current Visit: No Status: Chronic Priority: High Code(s): M54.9 - DORSALGIA, UNSPECIFIED Comment: - continue opiate regimen. - assess for over sedation daily (2) Sacral decubitus ulcer, stage IV Current Visit: No Status: Chronic Priority: High Code(s): L89.154 - PRESSURE ULCER OF SACRAL REGION, STAGE 4 Comment: - continuing wound care - appreciate nutrition recommendations to support healing. (3) CKD (chronic kidney disease), stage III Current Visit: No Status: Chronic Code(s): N18.3 - CHRONIC KIDNEY DISEASE, STAGE 3 (MODERATE) SNOMED Code(s): 448653389 Comment: Creatinine within baseline Baseline creatinine appears to be between 1.3 and 1.5 Avoid nephrotoxic medications (4) Ependymoma Current Visit: No Status: Chronic Priority: High Code(s): C71.9 - MALIGNANT NEOPLASM OF BRAIN, UNSPECIFIED Comment: - To the spine (dx in patient's 20s) - With concurrent chronic back pain and inability to ambulate - s/p multiple surgeries - back anatomy puts patient at much higher risk for pressure ulcer formation, as does high opiate requirements and fragility with easily acquired infections ( pneumonia / urinary tract infections). UTI's in particular are a high risk given his neurogenic bladder and indwelling arriaga catheter. (5) Neurogenic bowel Current Visit: Yes Status: Chronic Priority: High Code(s): K59.2 - NEUROGENIC BOWEL, NOT ELSEWHERE CLASSIFIED Comment: - vigilant efforts to keep sacral area clean, conducive to wound healing. (6) Neurogenic bladder Current Visit: Yes Status: Chronic Priority: High Code(s): N31.9 - NEUROMUSCULAR DYSFUNCTION OF BLADDER, UNSPECIFIED Comment: - Indwelling urinary catheter. (7) Chronic indwelling Arriaga catheter Current Visit: Yes Status: Chronic Priority: High Code(s): Z92.89 - PERSONAL HISTORY OF OTHER MEDICAL TREATMENT Comment: - high risk of UTI - currently on ABX
[2017-03-31] MEDS: oxyCODONE ORAL.SOLN* 5 MG/5 ML UDC PO PRN ×2 (13:30→20:10)
[2017-03-31] MEDS ORDERED: oxyCODONE ORAL.SOLN* 5 MG/5 ML UDC PO ONE (15:26)
[2017-04-01] MEDS: Omeprazole CAP* 20 MG PO SCH (06:24)
[2017-04-01] MEDS: oxyCODONE ORAL.SOLN* 5 MG/5 ML UDC PO PRN ×3 (06:32→17:28)
[2017-04-01] MEDS: fentaNYL Patch Check Q Shift 1 NOTE SCH ×2 (07:28→18:56)
[2017-04-01] MEDS: Cyanocobalamin TAB* 500 MCG PO SCH (08:50)
[2017-04-01] MEDS: Psyllium PAK PO SCH (08:50)
[2017-04-01] MEDS: Ferrous Gluconate TAB* 324 MG TAB PO SCH ×2 (08:51→22:08)
[2017-04-01] MEDS: Pregabalin CAP(*) 50 MG PO SCH ×3 (08:51→22:08)
[2017-04-01] MEDS: Folic Acid TAB* 1 MG PO SCH (08:51)
[2017-04-01] MEDS: Lactobacillus Acidophilu (GG)* 1 CAP CAP PO SCH ×2 (08:51→22:07)
[2017-04-01] MEDS: Cholecalciferol TAB* 1000 UNITS PO SCH (08:51)
[2017-04-01] MEDS: Potassium Chlor TAB* 10 MEQ TAB.ER PO SCH (08:51)
[2017-04-01] MEDS: Zinc Sulfate CAP* 220 MG PO SCH (08:51)
[2017-04-01] MEDS: metroNIDAZOLE TAB* 250 MG PO SCH ×2 (08:51→22:08)
[2017-04-01] MEDS: Aspirin EC Low Dose* 81 MG TAB.EC PO SCH (08:51)
[2017-04-01] MEDS: Furosemide TAB* 40 MG PO SCH (08:52)
[2017-04-01] MEDS: Nystatin CREAM* 15 GM TUBE TOPICAL SCH ×2 (08:53→21:58)
[2017-04-01] MEDS: Triamcinolone 0.025% OINT * 15 GM TUBE TOPICAL SCH ×2 (08:53→21:58)
--- NOTE | 2017-04-01 10:14 | PN ---
Progress Note - Progress Note Date of Service: 04/01/17 SOAP: Subjective: Without complaint Ate a good breakfast Objective: Temp Pulse Resp BP Pulse Ox 98.3 F 77 20 153/71 96 04/01/17 07:22 04/01/17 07:22 04/01/17 08:51 04/01/17 07:22 04/01/17 07:22 PEX: Sacral ulcer clean without odor or purulence. Much improved granulation tissue and less necrotic fat. Still with bony exposure at midline. Dimensions about the same. Packing changed. Assessment: Sacral pressure ulcer Plan: Continue BID packing change Will need some more debridement this week IV abx
--- NOTE | 2017-04-01 12:19 | PN ---
Subjective Date of Service: 04/01/17 Interval History: . Pt in good spirits sitting at side of bed eating breakfast pain reasonably well-controlled ulcer looked good as per surgery will have family meeting later today. may go outside daily in wheelchair... Family History: Unchanged from Admission Social History: Unchanged from Admission - no changes noted Past Medical History: Unchanged from Admission Objective Active Medications: . Acetaminophen (Tylenol Tab*) 650 mg PO Q6H PRN PRN Reason: FEVER/PAIN Aspirin (Aspirin Ec Low Dose*) 81 mg PO DAILY [facility] Last Admin: 04/01/17 08:51 Dose: 81 mg Bisacodyl (Dulcolax Supp*) 10 mg DE DAILY PRN PRN Reason: CONSTIPATION Cholecalciferol (Vitamin D Tab*) 5,000 units PO DAILY [facility] Last Admin: 04/01/17 08:51 Dose: 5,000 units Cyanocobalamin (Vitamin B12 Tab*) 1,000 mcg PO DAILY [facility] Last Admin: 04/01/17 08:50 Dose: 1,000 mcg Docusate Sodium (Colace Cap*) 100 mg PO BID PRN PRN Reason: CONSTIPATION Fentanyl (Duragesic Patch 75 Mcg/Hr*) 75 mcg TRANSDERM Q72H [facility] Last Admin: 03/29/17 19:18 Dose: 75 mcg Ferrous Gluconate (Fergon Tab*) 324 mg PO BID [facility] Last Admin: 04/01/17 08:51 Dose: 324 mg Folic Acid (Folvite Tab*) 0.5 mg PO DAILY [facility] Last Admin: 04/01/17 08:51 Dose: 0.5 mg Furosemide (Lasix Tab*) 40 mg PO DAILY [facility] Last Admin: 04/01/17 08:52 Dose: 40 mg Heparin Sodium (Porcine) (Heparin Flush Picc/Ml/Cvc(*)) 1 ml FLUSH 0600,1800 [facility] PRN Reason: Protocol Last Admin: 04/01/17 10:18 Dose: 1 ml Ceftriaxone Sodium 2 gm/ (Sodium Chloride) 100 mls @ 200 mls/hr IVPB DAILY [facility] Last Admin: 04/01/17 08:45 Dose: 200 mls/hr Lactobacillus Rhamnosus (Culturelle*) 1 cap PO BID [facility] Last Admin: 04/01/17 08:51 Dose: 1 cap Loperamide HCl (Imodium Cap*) 2 mg PO .SEE DIRECTIONS PRN PRN Reason: DIARRHEA Last Admin: 03/30/17 20:08 Dose: 2 mg Metronidazole (Flagyl Tab*) 500 mg PO BID [facility] Last Admin: 04/01/17 08:51 Dose: 500 mg Nystatin (Nystatin Cream*) 1 applic TOPICAL BID [facility] Last Admin: 04/01/17 08:53 Dose: 1 applic Omeprazole (Prilosec Cap*) 40 mg PO DAILY@0600 [facility] Last Admin: 04/01/17 06:24 Dose: 40 mg Ondansetron HCl (Zofran Odt Tab*) 4 mg PO Q8H PRN PRN Reason: NAUSEA/VOMITING Oxycodone HCl (Oxycodone Oral.Soln*) 5 mg PO Q6H PRN PRN Reason: PAIN - MODERATE TO SEVERE Last Admin: 04/01/17 11:56 Dose: 5 mg Oxycodone HCl (Roxycodone Tab*) 5 mg PO Q4H PRN PRN Reason: PAIN - MODERATE TO SEVERE Last Admin: 03/30/17 18:26 Dose: 5 mg Pharmacy Profile Note (Fentanyl Patch Check Q Shift) 1 note N/A 0700,1900 [facility] Last Admin: 04/01/17 07:28 Dose: 1 note Potassium Chloride (Klor Con Er Tab*) 10 meq PO DAILY [facility] Last Admin: 04/01/17 08:51 Dose: 10 meq Pregabalin (Lyrica Cap(*)) 150 mg PO TID [facility] Last Admin: 04/01/17 08:51 Dose: 150 mg Psyllium Hydrophilic Mucilloid (Metamucil Young*) 1 pkt PO DAILY [facility] Last Admin: 04/01/17 08:50 Dose: 1 pkt Triamcinolone Acetonide (Triamcinolone 0.025% Oint *) 1 applic TOPICAL BID [facility] Last Admin: 04/01/17 08:53 Dose: 1 applic Zinc Sulfate (Zinc-220 Cap*) 220 mg PO DAILY [facility] Last Admin: 04/01/17 08:51 Dose: 220 mg . Vital Signs 04/01/17 04/01/17 04/01/17 08:29 08:51 10:47 Temperature Pulse Rate Respiratory 18 20 20 Rate Blood Pressure (mmHg) O2 Sat by Pulse Oximetry 04/01/17 11:56 Temperature Pulse Rate Respiratory 18 Rate Blood Pressure (mmHg) O2 Sat by Pulse Oximetry Oxygen Devices in Use Now: Nasal Cannula Appearance: NAD today Eyes: No Scleral Icterus Ears/Nose/Mouth/Throat: Clear Oropharnyx Neck: NL Appearance and Movements; NL JVP Respiratory: Symmetrical Chest Expansion and Respiratory Effort Cardiovascular: NL Sounds; No Murmurs; No JVD Extremities: - - paraplegic Skin: - - sacral decubitus ulcer described by surgical team - packed - wet - dry dressing changes Neurological: Alert and Oriented x 3 Lines/Tubes/Other Access: Clean, Dry and Intact PICC Line Nutrition: Taking PO's Result Diagrams: 03/30/17 05:40 03/30/17 05:40 Assess/Plan/Problems-Billing . Assessment: 71 yo man with extreme pain chronically secondary to Ependymoma. Now with large sacral decubitus ulcer associated with pressure injury. Accompanying debilitation associated with recent hospitalization. - Patient Problems (1) Back pain Current Visit: No Status: Chronic Priority: High Code(s): M54.9 - DORSALGIA, UNSPECIFIED Comment: - continue opiate regimen. - assess for over sedation daily - may give 7.5 mg oxycodone before wheelchair transfer (2) Sacral decubitus ulcer, stage IV Current Visit: No Status: Chronic Priority: High Code(s): L89.154 - PRESSURE ULCER OF SACRAL REGION, STAGE 4 Comment: - continuing wound care - appreciate nutrition recommendations to support healing. (3) CKD (chronic kidney disease), stage III Current Visit: No Status: Chronic Code(s): N18.3 - CHRONIC KIDNEY DISEASE, STAGE 3 (MODERATE) SNOMED Code(s): 857145261 Comment: Creatinine within baseline Baseline creatinine appears to be between 1.3 and 1.5 Avoid nephrotoxic medications (4) Ependymoma Current Visit: No Status: Chronic Priority: High Code(s): C71.9 - MALIGNANT NEOPLASM OF BRAIN, UNSPECIFIED Comment: - To the spine (dx in patient's 20s) - With concurrent chronic back pain and inability to ambulate - s/p multiple surgeries - back anatomy puts patient at much higher risk for pressure ulcer formation, as does high opiate requirements and fragility with easily acquired infections ( pneumonia / urinary tract infections). UTI's in particular are a high risk given his neurogenic bladder and indwelling arriaga catheter. (5) Neurogenic bowel Current Visit: Yes Status: Chronic Priority: High Code(s): K59.2 - NEUROGENIC BOWEL, NOT ELSEWHERE CLASSIFIED Comment: - vigilant efforts to keep sacral area clean, conducive to wound healing. (6) Neurogenic bladder Current Visit: Yes Status: Chronic Priority: High Code(s): N31.9 - NEUROMUSCULAR DYSFUNCTION OF BLADDER, UNSPECIFIED Comment: - Indwelling urinary catheter. (7) Chronic indwelling Arriaga catheter Current Visit: Yes Status: Chronic Priority: High Code(s): Z92.89 - PERSONAL HISTORY OF OTHER MEDICAL TREATMENT Comment: - high risk of UTI - currently on ABX
[2017-04-01] MEDS ORDERED: oxyCODONE ORAL.SOLN* 5 MG/5 ML UDC PO PRN (13:00)
[2017-04-01] MEDS: oxyCODONE TAB* 5 MG TAB PO PRN ×2 (13:55→18:29)
[2017-04-01] MEDS: fentaNYL PATCH 75 MCG/HR* 75 MCG TRANSDERM SCH (17:22)
[2017-04-02] MEDS: oxyCODONE ORAL.SOLN* 5 MG/5 ML UDC PO PRN ×3 (00:13→12:32)
[2017-04-02] MEDS: Omeprazole CAP* 20 MG PO SCH (06:16)
[2017-04-02] MEDS: fentaNYL Patch Check Q Shift 1 NOTE SCH ×2 (06:56→18:42)
[2017-04-02] MEDS: Psyllium PAK PO SCH (09:19)
[2017-04-02] MEDS: Potassium Chlor TAB* 10 MEQ TAB.ER PO SCH (09:20)
[2017-04-02] MEDS: Ferrous Gluconate TAB* 324 MG TAB PO SCH ×2 (09:20→21:29)
[2017-04-02] MEDS: Furosemide TAB* 40 MG PO SCH (09:20)
[2017-04-02] MEDS: Cyanocobalamin TAB* 500 MCG PO SCH (09:20)
[2017-04-02] MEDS: Zinc Sulfate CAP* 220 MG PO SCH (09:21)
[2017-04-02] MEDS: Aspirin EC Low Dose* 81 MG TAB.EC PO SCH (09:21)
[2017-04-02] MEDS: metroNIDAZOLE TAB* 250 MG PO SCH ×2 (09:21→21:29)
[2017-04-02] MEDS: Folic Acid TAB* 1 MG PO SCH (09:21)
[2017-04-02] MEDS: Pregabalin CAP(*) 50 MG PO SCH ×3 (09:22→21:29)
[2017-04-02] MEDS: Lactobacillus Acidophilu (GG)* 1 CAP CAP PO SCH ×2 (09:22→21:30)
[2017-04-02] MEDS: Cholecalciferol TAB* 1000 UNITS PO SCH (09:22)
[2017-04-02] MEDS: Nystatin CREAM* 15 GM TUBE TOPICAL SCH ×2 (11:52→21:35)
[2017-04-02] MEDS: Triamcinolone 0.025% OINT * 15 GM TUBE TOPICAL SCH ×2 (11:52→21:35)
--- NOTE | 2017-04-02 12:31 | PN ---
Subjective - Subjective Reason for Note: Progress Note History: 71 year old man with sacral decubitus ulcer, no sacral pain, fever, rash. Bowel movements soft. Eating fine. No problems with PICC. Active Problems: Active Problems Acute osteomyelitis of sacrum (Acute) M46.28 Chronic indwelling Fischer catheter (Chronic) Z92.89 - high risk of UTI - currently on ABX Neurogenic bladder (Chronic) N31.9 - Indwelling urinary catheter. Neurogenic bowel (Chronic) K59.2 - vigilant efforts to keep sacral area clean, conducive to wound healing. Sacral decubitus ulcer, stage IV (Chronic) L89.154 - continuing wound care - appreciate nutrition recommendations to support healing. Current Medications: Current Medications Acetaminophen (Tylenol Tab*) 650 mg PO Q6H PRN PRN Reason: FEVER/PAIN Aspirin (Aspirin Ec Low Dose*) 81 mg PO DAILY [facility] Last Admin: 04/02/17 09:21 Dose: 81 mg Bisacodyl (Dulcolax Supp*) 10 mg [place] DAILY PRN PRN Reason: CONSTIPATION Cholecalciferol (Vitamin D Tab*) 5,000 units PO DAILY [facility] Last Admin: 04/02/17 09:22 Dose: 5,000 units Cyanocobalamin (Vitamin B12 Tab*) 1,000 mcg PO DAILY [facility] Last Admin: 04/02/17 09:20 Dose: 1,000 mcg Docusate Sodium (Colace Cap*) 100 mg PO BID PRN PRN Reason: CONSTIPATION Fentanyl (Duragesic Patch 75 Mcg/Hr*) 75 mcg TRANSDERM Q72H [facility] Last Admin: 04/01/17 17:22 Dose: 75 mcg Ferrous Gluconate (Fergon Tab*) 324 mg PO BID [facility] Last Admin: 04/02/17 09:20 Dose: 324 mg Folic Acid (Folvite Tab*) 0.5 mg PO DAILY [facility] Last Admin: 04/02/17 09:21 Dose: 0.5 mg Furosemide (Lasix Tab*) 40 mg PO DAILY [facility] Last Admin: 04/02/17 09:20 Dose: 40 mg Heparin Sodium (Porcine) (Heparin Flush Picc/Ml/Cvc(*)) 1 ml FLUSH 0600,1800 [facility] PRN Reason: Protocol Last Admin: 04/02/17 10:27 Dose: 1 ml Ceftriaxone Sodium 2 gm/ (Sodium Chloride) 100 mls @ 200 mls/hr IVPB DAILY [facility] Last Admin: 04/02/17 09:19 Dose: 200 mls/hr Lactobacillus Rhamnosus (Culturelle*) 1 cap PO BID [facility] Last Admin: 04/02/17 09:22 Dose: 1 cap Loperamide HCl (Imodium Cap*) 2 mg PO .SEE DIRECTIONS PRN PRN Reason: DIARRHEA Last Admin: 03/30/17 20:08 Dose: 2 mg Metronidazole (Flagyl Tab*) 500 mg PO BID [facility] Last Admin: 04/02/17 09:21 Dose: 500 mg Nystatin (Nystatin Cream*) 1 applic TOPICAL BID [facility] Last Admin: 04/02/17 11:52 Dose: 1 applic Omeprazole (Prilosec Cap*) 40 mg PO DAILY@0600 [facility] Last Admin: 04/02/17 06:16 Dose: 40 mg Ondansetron HCl (Zofran Odt Tab*) 4 mg PO Q8H PRN PRN Reason: NAUSEA/VOMITING Oxycodone HCl (Oxycodone Oral.Soln*) 5 mg PO Q6H PRN PRN Reason: PAIN - MODERATE TO SEVERE Last Admin: 04/02/17 06:15 Dose: 5 mg Oxycodone HCl (Roxycodone Tab*) 5 mg PO Q4H PRN PRN Reason: PAIN - MODERATE TO SEVERE Last Admin: 04/01/17 18:29 Dose: 5 mg Oxycodone HCl (Oxycodone Oral.Soln*) 7.5 mg PO Q24H PRN PRN Reason: SEE COMMENT Pharmacy Profile Note (Fentanyl Patch Check Q Shift) 1 note N/A 0700,1900 [facility] Last Admin: 04/02/17 06:56 Dose: 1 note Potassium Chloride (Klor Con Er Tab*) 10 meq PO DAILY [facility] Last Admin: 04/02/17 09:20 Dose: 10 meq Pregabalin (Lyrica Cap(*)) 150 mg PO TID [facility] Last Admin: 04/02/17 09:22 Dose: 150 mg Psyllium Hydrophilic Mucilloid (Metamucil Allegra*) 1 pkt PO DAILY [facility] Last Admin: 04/02/17 09:19 Dose: 1 pkt Triamcinolone Acetonide (Triamcinolone 0.025% Oint *) 1 applic TOPICAL BID [facility] Last Admin: 04/02/17 11:52 Dose: 1 applic Zinc Sulfate (Zinc-220 Cap*) 220 mg PO DAILY [facility] Last Admin: 04/02/17 09:21 Dose: 220 mg - Review of Systems Constitutional Symptoms: Yes: Weakness, No: Weight Gain Dermatology: Normal: Yes, Rash: No HEENT: Yes Normal, No Change in Hearing Eyes: Positive: Normal Thyroid: Positive: Normal Pulmonary: Positive: Normal Cardiology: Positive: Normal Genital - Urinary: Positive: Normal Endocrinology: Positive: Normal Neurology: Positive: Normal Psychiatry: Positive: Normal - Continue ceftriaxone/flagyl; CRP, CBC, CMP ordered for 04/03. Home Medications: Home Medications Medication Instructions Recorded Confirmed Type Aspirin Low Dose CHEW TAB* 81 mg PO DAILY 03/20/14 03/30/17 History [Aspirin Low Dose TAB*] Acetaminophen [Acetaminophen ER] 650 mg PO Q4HR PRN 02/12/17 03/30/17 History Cholecalciferol [Vitamin D3 Ultra 5,000 unit PO DAILY 02/12/17 03/30/17 History Strength] Cyanocobalamin TAB* [Vitamin B12 1,000 mcg PO DAILY 02/12/17 03/30/17 History TAB*] Ferrous Gluconate TAB* [Fergon 324 mg PO BID 02/12/17 03/30/17 History TAB*] Folic Acid 400 mcg PO DAILY 02/12/17 03/30/17 History Omeprazole CAP* [Prilosec CAP* 20 40 mg PO DAILY 02/12/17 03/30/17 History MG] Potassium Chloride [Klor-Con 10 meq PO DAILY 02/12/17 03/30/17 History Sprinkle] Pregabalin CAP(*) [Lyrica CAP(*)] 150 mg PO TID 02/12/17 03/30/17 History Furosemide TAB* [Lasix TAB*] 40 mg PO BID 02/28/17 03/30/17 History Oxycodone TAB(NF) [Oxycodone HCl 10 mg PO Q4H PRN MDD 100 mg 03/09/17 03/30/17 History 10 MG] fentaNYL PATCH 75 MCG/HR* 1 applic TRANSDERM Q72HR 03/09/17 03/30/17 History [Duragesic PATCH 75 Mcg/Hr*] Acetaminophen TAB* [Tylenol TAB*] 650 mg PO Q6H PRN #0 tab 03/29/17 03/30/17 Rx Ascorbic Acid TAB* [Vitamin C 500 mg PO DAILY tab 03/29/17 03/30/17 Rx TAB*] Aspirin EC Low Dose* [Ecotrin EC 81 mg PO DAILY tab.ec 03/29/17 03/30/17 Rx Low Dose 81 MG*] Cholecalciferol TAB* [Vitamin D 5,000 units PO DAILY tab 03/29/17 03/30/17 Rx TAB*] Cyanocobalamin TAB* [Vitamin B12 1,000 mcg PO DAILY tab 03/29/17 03/30/17 Rx TAB*] Docusate CAP* [Colace Cap*] 100 mg PO BID PRN #0 cap 03/29/17 03/30/17 Rx Enoxaparin(*) [Lovenox(*)] 40 mg SUBCUT Q24H syringe 03/29/17 03/30/17 Rx Ferrous Gluconate TAB* [Fergon 324 mg PO BID tab 03/29/17 03/30/17 Rx TAB*] Folic Acid TAB* [Folvite TAB*] 0.5 mg PO DAILY tab 03/29/17 03/30/17 Rx Furosemide TAB* [Lasix TAB*] 40 mg PO DAILY tab 03/29/17 03/30/17 Rx Heparin FLUSH PICC/ML/CVC(*) 1 ml FLUSH 0600,1800 syringe 03/29/17 03/30/17 Rx Lactobacillus Acidophilu (GG)* 1 cap PO BID cap 03/29/17 03/30/17 Rx [Culturelle*] Loperamide CAP* [Imodium CAP*] 2 mg PO .SEE DIRECTIONS PRN #0 cap 03/29/1703/30 Rx Nystatin CREAM* 1 applic TOPICAL BID tube 03/29/17 03/30/17 Rx Omeprazole CAP* [Prilosec CAP* 20 40 mg PO DAILY@0700 cap 03/29/17 03/30/17 Rx MG] Ondansetron ODT TAB* [Zofran 4 MG 4 mg PO Q8H PRN #0 tab 03/29/17 03/30/17 Rx Odt TAB*] Potassium Chlor TAB* [Klor Con ER 10 meq PO DAILY tab.er 03/29/17 03/30/17 Rx TAB 10 MEQ*] Pregabalin CAP(*) [Lyrica CAP(*)] 150 mg PO TID cap MDD 450 mg 03/29/17 Rx Psyllium ALLEGRA* [Metamucil ALLEGRA*] 1 pkt PO DAILY packet 03/29/17 03/30/17 Rx Triamcinolone 0.025% OINT * 1 applic TOPICAL BID gm 03/29/17 03/30/17 Rx Zinc Sulfate CAP* [Zinc-220 CAP*] 220 mg PO DAILY cap 03/29/17 03/30/17 Rx fentaNYL PATCH 75 MCG/HR* 75 mcg TRANSDERM Q72H patch MDD 1 03/29/17 03/30/17 Rx [Duragesic PATCH 75 Mcg/Hr*] patch fentaNYL Patch Check Q Shift 1 note N/A 0700,1500,2300 note 03/29/17 03/30/17 Rx [Fentanyl Patch Check Q Shift] metroNIDAZOLE TAB* [Flagyl 250 mg 500 mg PO BID tab 03/29/17 03/30/17 Rx TAB*] oxyCODONE TAB* [Roxycodone TAB 5 5 mg PO Q4H PRN #0 tab MDD 6 pills 03/29/17 Rx mg*] Allergies: Allergies Allergy/AdvReac Type Severity Reaction Status Date / Time Atorvastatin [From Lipitor] Allergy See Comment Verified 02/28/17 14:18 Objective - Vital Signs Vital Signs: Vital Signs 04/01/17 04/01/17 04/01/17 13:54 13:55 13:56 Temperature Pulse Rate Respiratory 18 18 18 Rate Blood Pressure (mmHg) O2 Sat by Pulse Oximetry 04/01/17 04/01/17 04/01/17 15:26 15:54 15:55 Temperature 37.3 C Pulse Rate 89 Respiratory 18 18 18 Rate Blood Pressure 140/49 (mmHg) O2 Sat by Pulse 96 Oximetry 04/01/17 04/01/17 04/01/17 17:28 18:29 19:25 Temperature Pulse Rate Respiratory 18 18 16 Rate Blood Pressure (mmHg) O2 Sat by Pulse Oximetry 04/01/17 04/01/17 04/01/17 19:28 20:29 22:08 Temperature Pulse Rate Respiratory 16 16 16 Rate Blood Pressure (mmHg) O2 Sat by Pulse Oximetry 04/01/17 04/02/17 04/02/17 23:29 00:08 00:13 Temperature 37.0 C Pulse Rate 91 Respiratory 16 16 16 Rate Blood Pressure 133/62 (mmHg) O2 Sat by Pulse 96 Oximetry 04/02/17 04/02/17 04/02/17 02:13 04:00 06:15 Temperature 37.2 C Pulse Rate 76 Respiratory 14 14 14 Rate Blood Pressure 161/66 (mmHg) O2 Sat by Pulse 97 Oximetry 04/02/17 04/02/17 04/02/17 07:20 07:58 08:15 Temperature 36.7 C Pulse Rate 71 Respiratory 18 18 18 Rate Blood Pressure 136/66 (mmHg) O2 Sat by Pulse 94 Oximetry 04/02/17 04/02/17 09:22 11:22 Temperature Pulse Rate Respiratory 18 18 Rate Blood Pressure (mmHg) O2 Sat by Pulse Oximetry - Intake and Output Intake and Output: Intake & Output 03/31/17 04/01/17 04/02/17 04/03/17 06:59 06:59 06:59 06:59 Intake Total 1580 1949 1939 620 Output Total 1949 1899 1699 Balance -370 50 240 620 Intake: IV Fluids 40 NS (0.9%) 40 IVPB 50 ABX - CEFTRIAXONE 50 Oral 1490 1949 1939 620 Output: Fischer 1949 1899 1699 Other: Date of Last Bowel 03/30/17 Movement # Bowel Movements 1 3 3 Estimated Stool Amount Small Small Medium Small ADLs: Meal Record Start: 03/29/17 18: 29 Freq: Status: Active Created 03/29/17 18:29 System (Rec: 03/29/17 18:29 System [id number]) Document 03/30/17 09:55 [id number] (Rec: 03/30/17 09:55 [id number] SSU-C19) Document 03/30/17 13:42 [id number] (Rec: 03/30/17 13:42 [id number] SSU-C19) Document 03/31/17 10:00 [id number] (Rec: 03/31/17 10:16 [id number] SSU-C06) Document 04/01/17 10:39 [id number] (Rec: 04/01/17 10:39 [id number] SSU-C11) Document 04/01/17 14:01 [id number] (Rec: 04/01/17 14:02 [id number] SSU-C11) Document 04/01/17 18:57 [id number] (Rec: 04/01/17 18:57 [id number] SSU-C19) Document 04/02/17 09:28 [id number] (Rec: 04/02/17 09:29 [id number] SSU-C01) Intake and Output Start: 03/29/17 18: 29 Freq: DAILY@0600,1400,2200 Status: Active Created 03/29/17 18:29 System (Rec: 03/29/17 18:29 System [id number]) Document 03/29/17 22:35 [id number] (Rec: 03/29/17 22:35 [id number] SSU-C19) Document 03/29/17 22:45 [id number] (Rec: 03/30/17 02:40 [id number] SSU-C44) Document 03/30/17 01:45 [id number] (Rec: 03/30/17 02:39 [id number] SSU-C44) Document 03/30/17 05:56 [id number] (Rec: 03/30/17 05:57 [id number] SSU-C03) Document 03/30/17 08:00 [id number] (Rec: 03/30/17 12:33 [id number] SSU-C19) Document 03/30/17 12:45 [id number] (Rec: 03/30/17 12:46 [id number] SSU-C19) Document 03/30/17 14:00 [id number] (Rec: 03/30/17 14:40 [id number] SSU-C19) Document 03/30/17 20:00 [id number] (Rec: 03/30/17 20:57 [id number] SSU-C01) Document 03/30/17 22:00 [id number] (Rec: 03/30/17 22:23 [id number] SSU-C11) Document 03/31/17 06:00 [id number] (Rec: 03/31/17 06:22 [id number] SSU-M13) Document 03/31/17 11:15 [id number] (Rec: 03/31/17 14:12 [id number] SSU-C06) Document 03/31/17 17:42 [id number] (Rec: 03/31/17 17:43 [id number] SSU-C04) Document 03/31/17 22:00 [id number] (Rec: 03/31/17 22:18 [id number] SSU-C19) Document 04/01/17 05:35 [id number] (Rec: 04/01/17 05:35 [id number] SSU-C20) Document 04/01/17 14:00 [id number] (Rec: 04/01/17 14:26 [id number] SSU-C11) Document 04/01/17 22:00 [id number] (Rec: 04/01/17 22:51 [id number] SSU-C19) Document 04/02/17 06:00 [id number] (Rec: 04/02/17 06:18 [id number] SSU-C03) Assessment - Problem List Assessment: Patient Problems Acute osteomyelitis of sacrum (Acute) Chronic indwelling Fischer catheter (Chronic) Neurogenic bladder (Chronic) Neurogenic bowel (Chronic) Sacral decubitus ulcer, stage IV (Chronic) DVT prophylaxis (Acute) Dehydration (Acute) Diarrhea (Acute) Fever (Acute) Full code status (Acute) Hyponatremia (Acute) Pneumonia (Acute) Pressure ulcer of sacral region, stage 3 (Acute) Sepsis (Acute) Anemia (Chronic) Back pain (Chronic) CAD (coronary artery disease) (Chronic) CKD (chronic kidney disease), stage III (Chronic) Chronic back pain (Chronic) Ependymoma (Chronic) HTN (hypertension) (Chronic) MATY (obstructive sleep apnea) (Chronic) Paraplegia (Chronic) Assessment/Plan - Plan Plan: same antibiotics, labs 04/03 35 minutes floor time >50% face to face discussing antibiotic treatment plans
--- NOTE | 2017-04-02 17:39 | PN ---
Subjective Date of Service: 04/02/17 Interval History: Patient has no acute complaints overnight. Pain in sacral wound well controlled. Patient denies CP, SOB, Abdominal Pain, N/V. Patient unable to feel body from waist down. Plan discussed at length with family and they are anxiously waiting the plastic surgery telemedicine consult and are moderately satisfied with the care here, but would like more turning and repositioning and would like a more concerted effort to accomplish the 6 meals a day plan. Family History: Unchanged from Admission Social History: Unchanged from Admission - no changes noted Past Medical History: Unchanged from Admission Objective Active Medications: Acetaminophen (Tylenol Tab*) 650 mg PO Q6H PRN PRN Reason: FEVER/PAIN Aspirin (Aspirin Ec Low Dose*) 81 mg PO DAILY [facility] Last Admin: 04/02/17 09:21 Dose: 81 mg Bisacodyl (Dulcolax Supp*) 10 mg [place] DAILY PRN PRN Reason: CONSTIPATION Cholecalciferol (Vitamin D Tab*) 5,000 units PO DAILY [facility] Last Admin: 04/02/17 09:22 Dose: 5,000 units Cyanocobalamin (Vitamin B12 Tab*) 1,000 mcg PO DAILY [facility] Last Admin: 04/02/17 09:20 Dose: 1,000 mcg Docusate Sodium (Colace Cap*) 100 mg PO BID PRN PRN Reason: CONSTIPATION Fentanyl (Duragesic Patch 75 Mcg/Hr*) 75 mcg TRANSDERM Q72H [facility] Last Admin: 04/01/17 17:22 Dose: 75 mcg Ferrous Gluconate (Fergon Tab*) 324 mg PO BID [facility] Last Admin: 04/02/17 09:20 Dose: 324 mg Folic Acid (Folvite Tab*) 0.5 mg PO DAILY [facility] Last Admin: 04/02/17 09:21 Dose: 0.5 mg Furosemide (Lasix Tab*) 40 mg PO DAILY [facility] Last Admin: 04/02/17 09:20 Dose: 40 mg Heparin Sodium (Porcine) (Heparin Flush Picc/Ml/Cvc(*)) 1 ml FLUSH 0600,1800 [facility] PRN Reason: Protocol Last Admin: 04/02/17 10:27 Dose: 1 ml Ceftriaxone Sodium 2 gm/ (Sodium Chloride) 100 mls @ 200 mls/hr IVPB DAILY [facility] Last Admin: 04/02/17 09:19 Dose: 200 mls/hr Lactobacillus Rhamnosus (Culturelle*) 1 cap PO BID [facility] Last Admin: 04/02/17 09:22 Dose: 1 cap Loperamide HCl (Imodium Cap*) 2 mg PO .SEE DIRECTIONS PRN PRN Reason: DIARRHEA Last Admin: 03/30/17 20:08 Dose: 2 mg Metronidazole (Flagyl Tab*) 500 mg PO BID [facility] Last Admin: 04/02/17 09:21 Dose: 500 mg Nystatin (Nystatin Cream*) 1 applic TOPICAL BID [facility] Last Admin: 04/02/17 11:52 Dose: 1 applic Omeprazole (Prilosec Cap*) 40 mg PO DAILY@0600 [facility] Last Admin: 04/02/17 06:16 Dose: 40 mg Ondansetron HCl (Zofran Odt Tab*) 4 mg PO Q8H PRN PRN Reason: NAUSEA/VOMITING Oxycodone HCl (Oxycodone Oral.Soln*) 5 mg PO Q6H PRN PRN Reason: PAIN - MODERATE TO SEVERE Last Admin: 04/02/17 12:32 Dose: 5 mg Oxycodone HCl (Roxycodone Tab*) 5 mg PO Q4H PRN PRN Reason: PAIN - MODERATE TO SEVERE Last Admin: 04/01/17 18:29 Dose: 5 mg Oxycodone HCl (Oxycodone Oral.Soln*) 7.5 mg PO Q24H PRN PRN Reason: SEE COMMENT Pharmacy Profile Note (Fentanyl Patch Check Q Shift) 1 note N/A 0700,1900 [facility] Last Admin: 04/02/17 06:56 Dose: 1 note Potassium Chloride (Klor Con Er Tab*) 10 meq PO DAILY [facility] Last Admin: 04/02/17 09:20 Dose: 10 meq Pregabalin (Lyrica Cap(*)) 150 mg PO TID [facility] Last Admin: 04/02/17 14:03 Dose: 150 mg Psyllium Hydrophilic Mucilloid (Metamucil Young*) 1 pkt PO DAILY [facility] Last Admin: 04/02/17 09:19 Dose: 1 pkt Triamcinolone Acetonide (Triamcinolone 0.025% Oint *) 1 applic TOPICAL BID [facility] Last Admin: 04/02/17 11:52 Dose: 1 applic Zinc Sulfate (Zinc-220 Cap*) 220 mg PO DAILY [facility] Last Admin: 04/02/17 09:21 Dose: 220 mg Vital Signs 04/01/17 04/01/17 04/01/17 18:29 19:25 19:28 Temperature Pulse Rate Respiratory 18 16 16 Rate Blood Pressure (mmHg) O2 Sat by Pulse Oximetry 04/01/17 04/01/17 04/01/17 20:29 22:08 23:29 Temperature 98.6 F Pulse Rate 91 Respiratory 16 16 16 Rate Blood Pressure 133/62 (mmHg) O2 Sat by Pulse 96 Oximetry 04/02/17 04/02/17 04/02/17 00:08 00:13 02:13 Temperature Pulse Rate Respiratory 16 16 14 Rate Blood Pressure (mmHg) O2 Sat by Pulse Oximetry 04/02/17 04/02/17 04/02/17 04:00 06:15 07:20 Temperature 98.9 F 98.0 F Pulse Rate 76 71 Respiratory 14 14 18 Rate Blood Pressure 161/66 136/66 (mmHg) O2 Sat by Pulse 97 94 Oximetry 04/02/17 04/02/17 04/02/17 07:58 08:15 09:22 Temperature Pulse Rate Respiratory 18 18 18 Rate Blood Pressure (mmHg) O2 Sat by Pulse Oximetry 04/02/17 04/02/17 04/02/17 11:11 11:22 12:32 Temperature 97.2 F Pulse Rate 75 Respiratory 18 18 18 Rate Blood Pressure 134/55 (mmHg) O2 Sat by Pulse 97 Oximetry 04/02/17 04/02/17 04/02/17 14:03 14:32 16:23 Temperature 98.9 F Pulse Rate 82 Respiratory 18 18 16 Rate Blood Pressure 111/34 (mmHg) O2 Sat by Pulse 95 Oximetry Oxygen Devices in Use Now: Nasal Cannula Appearance: Patient is a 71yo male who appears stated age and is sitting alertly in the hospital bed propped up on pillows. Eyes: No Scleral Icterus, PERRLA Ears/Nose/Mouth/Throat: NL Teeth, Lips, Gums, Mucous Membranes Moist Neck: NL Appearance and Movements; NL JVP Respiratory: Symmetrical Chest Expansion and Respiratory Effort, Clear to Auscultation Cardiovascular: NL Sounds; No Murmurs; No JVD, RRR, No Edema Abdominal: No Hepatosplenomegaly, - - BS present and normoactive in all 4 quadrants. Abdomen moderately distended. Nontender to palpation. Lymphatic: No Cervical Adenopathy Skin: - - Patient has an approximately 5urt9ca (Did not measure) ulcer on his lower back with granulation tissue and a small amount of slough. Patient has an unstageable ulcer covered by black dissicated skin on his right foot. Neurological: Alert and Oriented x 3, - - Pharmacy Operations Specialist strength preserved in B/L upper extremities. Patient unable to move his legs or feel anything from the waist down. Result Diagrams: 03/30/17 05:40 03/30/17 05:40 Assess/Plan/Problems-Billing . Assessment: 71 yo man with extreme pain chronically secondary to Ependymoma. Now with large sacral decubitus ulcer which has been debrided and is healing nicely. Accompanying debilitation associated with recent hospitalization having a negative effect on patient's mental state. Patient currently euthymic. - Patient Problems (1) Acute osteomyelitis of sacrum Current Visit: Yes Status: Acute Code(s): M46.28 - OSTEOMYELITIS OF VERTEBRA , SACRAL AND SACROCOCCYGEAL REGION SNOMED Code(s): 958098682 Comment: Continue Ceftriaxone and flagyl at current doses per ID. (2) Chronic indwelling Fischer catheter Current Visit: Yes Status: Chronic Priority: High Code(s): Z92.89 - PERSONAL HISTORY OF OTHER MEDICAL TREATMENT SNOMED Code(s): 349881363 Comment: High risk of UTI - currently on ABX, no current evidence of UTI. (3) Neurogenic bladder Current Visit: Yes Status: Chronic Priority: High Code(s): N31.9 - NEUROMUSCULAR DYSFUNCTION OF BLADDER, UNSPECIFIED SNOMED Code(s): 217425399 Comment: Indwelling urinary catheter, no sign of current UTI. (4) Neurogenic bowel Current Visit: Yes Status: Chronic Priority: High Code(s): K59.2 - NEUROGENIC BOWEL, NOT ELSEWHERE CLASSIFIED SNOMED Code(s): 892528352 Comment: Having frequent loose bowel movements. Frequent pericare to prevent skin breakdown. Flagyl to help with diarrhea. (5) Sacral decubitus ulcer, stage IV Current Visit: Yes Status: Chronic Priority: High Code(s): L89.154 - PRESSURE ULCER OF SACRAL REGION, STAGE 4 SNOMED Code(s): 711104082 Comment: Continuing wound care, will need continued debridement per surgery Appreciate nutrition recommendations to support healing, attempt for 6 small protein rich meals daily and continue vitamins. (6) DVT prophylaxis Current Visit: No Status: Acute Code(s): UYC9175 - SNOMED Code(s): 329153737 Comment: Lovenox SCDs in bed. (7) Diarrhea Current Visit: No Status: Acute Code(s): R19.7 - DIARRHEA, UNSPECIFIED SNOMED Code(s): 12133534 Comment: Persistent diarrhea, Likely ABX associated but not Cdiff. Continue Flagyl, Probiotic, Metamucil, and Immodium. (8) Chronic back pain Current Visit: No Status: Chronic Code(s): M54.9 - DORSALGIA, UNSPECIFIED; G89.29 - OTHER CHRONIC PAIN SNOMED Code(s): 601551948 Comment: Secondary to ependymoma Continue pregabalin, and acetaminophen. Continue opiate regimen. Assess for oversedation frequently. May have hydrocodone 7.5mg for transfers. (9) MATY (obstructive sleep apnea) Current Visit: No Status: Chronic Code(s): G47.33 - OBSTRUCTIVE SLEEP APNEA (ADULT) (PEDIATRIC) SNOMED Code(s): 60154555 Comment: Continue home BiPAP use. (10) Paraplegia Current Visit: No Status: Chronic Code(s): G82.20 - PARAPLEGIA, UNSPECIFIED SNOMED Code(s): 57483596 Comment: Secondary to ependymoma Cont with skin precautions - frequent turning, skin care. Cont pain management Plan for spinal stimulator implantation with Dr. Staton ([place]) eventually (11) Full code status Current Visit: No Status: Acute Code(s): Z78.9 - OTHER SPECIFIED HEALTH STATUS SNOMED Code(s): 440400675 Status and Disposition: Awaiting plastic surgery consult. Plan is to return home when able to do so functionally. Attending: Ashley Harper
[2017-04-02] MEDS: Enoxaparin(*) 40 MG/0.4 ML SYR SUBCUT SCH (18:21)
[2017-04-02] MEDS ORDERED: oxyCODONE ORAL.SOLN* 5 MG/5 ML UDC PO PRN (18:29)
[2017-04-03] MEDS: oxyCODONE ORAL.SOLN* 5 MG/5 ML UDC PO PRN ×2 (04:26→10:37)
[2017-04-03] MEDS: Omeprazole CAP* 20 MG PO SCH (06:08)
[2017-04-03] MEDS: fentaNYL Patch Check Q Shift 1 NOTE SCH ×2 (06:59→19:03)
[2017-04-03 07:08] LABS: Albumin 3.2 g/dL (3.2-5.2); BUN/Creatinine Ratio 28.1 (8-20); C Reactive Protein 16.92 mg/L (< 5.00); Calcium 9.9 mg/dL (8.6-10.3); EGFR African American 64.8 (>60); EGFR Non-African American 50.4 (>60); Globulin 2.7 g/dL (2-4); Total Bilirubin 0.3 mg/dL (0.2-1.0); Total Protein 5.9 g/dL (6.4-8.9)
[2017-04-03 08:12] LABS: Hematocrit 34 % (42-52); Mean Corpuscular HGB Conc 33 g/dl (31-36); Mean Corpuscular Hemoglobin 27 pg (27-31); Mean Corpuscular Volume 83 fL (80-94); Mean Platelet Volume 8 um3 (7.4-10.4); Red Blood Count 4.07 10^6/ul (4.0-5.4); Red Cell Distribution Width 20 % (10.5-15); White Blood Count 8.1 10^3/ul (3.5-10.8)
[2017-04-03] MEDS: Cyanocobalamin TAB* 500 MCG PO SCH (09:25)
[2017-04-03] MEDS: Aspirin EC Low Dose* 81 MG TAB.EC PO SCH (09:25)
[2017-04-03] MEDS: Lactobacillus Acidophilu (GG)* 1 CAP CAP PO SCH ×2 (09:25→22:31)
[2017-04-03] MEDS: Loperamide CAP* 2 MG PO PRN ×3 (09:25→22:31)
[2017-04-03] MEDS: Furosemide TAB* 40 MG PO SCH (09:25)
[2017-04-03] MEDS: Potassium Chlor TAB* 10 MEQ TAB.ER PO SCH (09:25)
[2017-04-03] MEDS: Psyllium PAK PO SCH (09:27)
[2017-04-03] MEDS: Pregabalin CAP(*) 50 MG PO SCH ×3 (09:27→22:31)
[2017-04-03] MEDS: Ferrous Gluconate TAB* 324 MG TAB PO SCH ×2 (09:27→22:32)
[2017-04-03] MEDS: Cholecalciferol TAB* 1000 UNITS PO SCH (09:28)
[2017-04-03] MEDS: metroNIDAZOLE TAB* 250 MG PO SCH ×2 (09:28→22:31)
[2017-04-03] MEDS: Zinc Sulfate CAP* 220 MG PO SCH (09:29)
[2017-04-03] MEDS: Folic Acid TAB* 1 MG PO SCH (09:47)
[2017-04-03] MEDS: oxyCODONE TAB* 5 MG TAB PO PRN ×2 (09:48→14:08)
[2017-04-03] MEDS ORDERED: oxyCODONE ORAL.SOLN* 5 MG/5 ML UDC PO PRN ×2 (10:12→10:27)
[2017-04-03] MEDS: Triamcinolone 0.025% OINT * 15 GM TUBE TOPICAL SCH ×2 (11:10→22:33)
[2017-04-03] MEDS: Nystatin CREAM* 15 GM TUBE TOPICAL SCH ×2 (11:15→22:32)
[2017-04-03] MEDS: oxyCODONE ORAL.SOLN* 5 MG/5 ML UDC PO SCH ×2 (12:20→16:57)
[2017-04-03] MEDS: fentaNYL PATCHs 100 MCG/HR TRANSDERM SCH ×2 (14:40→18:35)
--- NOTE | 2017-04-03 14:56 | PN ---
Subjective Date of Service: 04/03/17 Interval History: Patient was woken up at 0400 to receive his liquid oxycodone and was then unable to receive the dose before breakfast. Patient in 8/10 pain when sitting up. Patient has little pain from ulcer. Patient denies CP, SOB, Abdominal pain, F/C. No other new pain. Family talking with SW about telemedicine plastic surgery consult from [facility]. Scheduled for next week. Treatment plan discussed at length with family. Family History: Unchanged from Admission Social History: Unchanged from Admission - no changes noted Past Medical History: Unchanged from Admission Objective Active Medications: Acetaminophen (Tylenol Tab*) 650 mg PO Q6H PRN PRN Reason: FEVER/PAIN Aspirin (Aspirin Ec Low Dose*) 81 mg PO DAILY [facility] Last Admin: 04/03/17 09:25 Dose: 81 mg Bisacodyl (Dulcolax Supp*) 10 mg [place] DAILY PRN PRN Reason: CONSTIPATION Cholecalciferol (Vitamin D Tab*) 5,000 units PO DAILY [facility] Last Admin: 04/03/17 09:28 Dose: 5,000 units Cyanocobalamin (Vitamin B12 Tab*) 1,000 mcg PO DAILY [facility] Last Admin: 04/03/17 09:25 Dose: 1,000 mcg Docusate Sodium (Colace Cap*) 100 mg PO BID PRN PRN Reason: CONSTIPATION Enoxaparin Sodium (Lovenox(*)) 40 mg SUBCUT Q24H [facility] Last Admin: 04/02/17 18:21 Dose: 40 mg Fentanyl (Duragesic Patch 100 Mcg/Hr *) 100 mcg TRANSDERM Q72H [facility] Last Admin: 04/03/17 14:40 Dose: 100 mcg Ferrous Gluconate (Fergon Tab*) 324 mg PO BID [facility] Last Admin: 04/03/17 09:27 Dose: 324 mg Folic Acid (Folvite Tab*) 0.5 mg PO DAILY [facility] Last Admin: 04/03/17 09:47 Dose: 0.5 mg Furosemide (Lasix Tab*) 40 mg PO DAILY [facility] Last Admin: 04/03/17 09:25 Dose: 40 mg Heparin Sodium (Porcine) (Heparin Flush Picc/Ml/Cvc(*)) 1 ml FLUSH 0600,1800 [facility] PRN Reason: Protocol Last Admin: 04/03/17 06:10 Dose: 1 ml Ceftriaxone Sodium 2 gm/ (Sodium Chloride) 100 mls @ 200 mls/hr IVPB DAILY [facility] Last Admin: 04/03/17 09:28 Dose: 200 mls/hr Lactobacillus Rhamnosus (Culturelle*) 1 cap PO BID [facility] Last Admin: 04/03/17 09:25 Dose: 1 cap Loperamide HCl (Imodium Cap*) 2 mg PO .SEE DIRECTIONS PRN PRN Reason: DIARRHEA Last Admin: 04/03/17 14:06 Dose: 2 mg Metronidazole (Flagyl Tab*) 500 mg PO BID [facility] Last Admin: 04/03/17 09:28 Dose: 500 mg Nystatin (Nystatin Cream*) 1 applic TOPICAL BID [facility] Last Admin: 04/03/17 11:15 Dose: 1 applic Omeprazole (Prilosec Cap*) 40 mg PO DAILY@0600 [facility] Last Admin: 04/03/17 06:08 Dose: 40 mg Ondansetron HCl (Zofran Odt Tab*) 4 mg PO Q8H PRN PRN Reason: NAUSEA/VOMITING Oxycodone HCl (Roxycodone Tab*) 5 mg PO Q4H PRN PRN Reason: PAIN - MODERATE TO SEVERE Last Admin: 04/03/17 14:08 Dose: 5 mg Oxycodone HCl (Oxycodone Oral.Soln*) 7.5 mg PO AC [facility] Last Admin: 04/03/17 12:20 Dose: 7.5 mg Oxycodone HCl (Oxycodone Oral.Soln*) 7.5 mg PO DAILY PRN PRN Reason: PAIN Pharmacy Profile Note (Fentanyl Patch Check Q Shift) 1 note N/A 0700,1900 [facility] Last Admin: 04/03/17 06:59 Dose: 1 note Potassium Chloride (Klor Con Er Tab*) 10 meq PO DAILY [facility] Last Admin: 04/03/17 09:25 Dose: 10 meq Pregabalin (Lyrica Cap(*)) 150 mg PO TID [facility] Last Admin: 04/03/17 14:07 Dose: 150 mg Psyllium Hydrophilic Mucilloid (Metamucil Young*) 1 pkt PO DAILY [facility] Last Admin: 04/03/17 09:27 Dose: 1 pkt Triamcinolone Acetonide (Triamcinolone 0.025% Oint *) 1 applic TOPICAL BID [facility] Last Admin: 04/03/17 11:10 Dose: 1 applic Zinc Sulfate (Zinc-220 Cap*) 220 mg PO DAILY [facility] Last Admin: 04/03/17 09:29 Dose: 220 mg Vital Signs 04/02/17 04/02/17 04/02/17 16:23 20:00 20:24 Temperature 98.9 F 99.4 F Pulse Rate 82 88 Respiratory 16 16 Rate Blood Pressure 111/34 157/68 (mmHg) O2 Sat by Pulse 95 95 Oximetry 04/02/17 04/02/17 04/02/17 21:29 23:29 23:54 Temperature 98.3 F Pulse Rate 80 Respiratory 16 17 18 Rate Blood Pressure 128/57 (mmHg) O2 Sat by Pulse 96 Oximetry 04/03/17 04/03/17 04/03/17 04:03 04:26 06:26 Temperature 97.8 F Pulse Rate 69 Respiratory 16 17 16 Rate Blood Pressure 123/50 (mmHg) O2 Sat by Pulse 95 Oximetry 04/03/17 04/03/17 04/03/17 08:00 08:02 09:25 Temperature 98.4 F Pulse Rate 76 Respiratory 16 16 16 Rate Blood Pressure 114/59 (mmHg) O2 Sat by Pulse 97 Oximetry 04/03/17 04/03/17 04/03/17 09:27 09:48 10:37 Temperature Pulse Rate Respiratory 16 16 16 Rate Blood Pressure (mmHg) O2 Sat by Pulse Oximetry 04/03/17 04/03/17 04/03/17 11:48 12:20 14:06 Temperature Pulse Rate Respiratory 16 16 16 Rate Blood Pressure (mmHg) O2 Sat by Pulse Oximetry 04/03/17 04/03/17 04/03/17 14:07 14:08 14:40 Temperature Pulse Rate Respiratory 16 16 16 Rate Blood Pressure (mmHg) O2 Sat by Pulse Oximetry Oxygen Devices in Use Now: None Appearance: Patient is a 71yo male who appears stated age and is lying in the bed propped on pillows and in NAD. Eyes: No Scleral Icterus, PERRLA Ears/Nose/Mouth/Throat: NL Teeth, Lips, Gums, Clear Oropharnyx, Mucous Membranes Moist Neck: NL Appearance and Movements; NL JVP, Trachea Midline Respiratory: Symmetrical Chest Expansion and Respiratory Effort, Clear to Auscultation Cardiovascular: NL Sounds; No Murmurs; No JVD, RRR, No Edema Abdominal: No Hepatosplenomegaly, - - Normoactive sounds present in all 4 quadrants. Slight tenderness to palpation over RUQ. Moderately distended. Lymphatic: No Cervical Adenopathy Extremities: No Clubbing, Cyanosis Skin: - - Stable decubitus ulcer. Heel ulcer no change Neurological: Alert and Oriented x 3, - - Unable to feel from the waist down. Pleasant mood without sedation. Result Diagrams: 04/03/17 07:56 04/03/17 06:37 Additional Lab and Data: 04/03/17 04/03/17 06:37 07:56 WBC 8.1 RBC 4.07 Hgb 11.0 L Hct 34 L MCV 83 MCH 27 MCHC 33 RDW 20 H Plt Count 210 MPV 8 Sodium 139 Potassium 4.0 Chloride 104 Carbon Dioxide 29 Anion Gap 6 BUN 39 H Creatinine 1.39 H Est GFR ( Amer) 64.8 Est GFR (Non-Af Amer) 50.4 BUN/Creatinine Ratio 28.1 H Glucose 103 H Calcium 9.9 Total Bilirubin 0.30 AST 12 L ALT 9 Alkaline Phosphatase 69 C-Reactive Protein 16.92 H Total Protein 5.9 L Albumin 3.2 Globulin 2.7 Albumin/Globulin Ratio 1.2 Assess/Plan/Problems-Billing . Assessment: 71 yo man with extreme pain chronically secondary to Ependymoma. Now with large sacral decubitus ulcer which has been debrided and is healing nicely. Accompanying debilitation associated with recent hospitalization having a negative effect on patient's mental state. Patient currently euthymic. - Patient Problems (1) Acute osteomyelitis of sacrum Current Visit: Yes Status: Acute Code(s): M46.28 - OSTEOMYELITIS OF VERTEBRA , SACRAL AND SACROCOCCYGEAL REGION SNOMED Code(s): 299698953 Comment: Continue Ceftriaxone and flagyl at current doses per ID. no signs of systemic or local infection (2) Chronic indwelling Fischer catheter Current Visit: Yes Status: Chronic Priority: High Code(s): Z92.89 - PERSONAL HISTORY OF OTHER MEDICAL TREATMENT SNOMED Code(s): 140640820 Comment: High risk of UTI - currently on ABX, no current evidence of UTI. (3) Neurogenic bladder Current Visit: Yes Status: Chronic Priority: High Code(s): N31.9 - NEUROMUSCULAR DYSFUNCTION OF BLADDER, UNSPECIFIED SNOMED Code(s): 134344010 Comment: Indwelling urinary catheter, no sign of current UTI. (4) Neurogenic bowel Current Visit: Yes Status: Chronic Priority: High Code(s): K59.2 - NEUROGENIC BOWEL, NOT ELSEWHERE CLASSIFIED SNOMED Code(s): 610147936 Comment: Having frequent loose bowel movements. Frequent pericare to prevent skin breakdown. Flagyl to help with diarrhea. Immodium after loose bowel movements. Metamucil for bulking. (5) Sacral decubitus ulcer, stage IV Current Visit: Yes Status: Chronic Priority: High Code(s): L89.154 - PRESSURE ULCER OF SACRAL REGION, STAGE 4 SNOMED Code(s): 675747981 Comment: Continuing wound care, will need continued debridement per surgery Appreciate nutrition recommendations to support healing, attempt for 6 small protein rich meals daily and continue vitamins. (6) DVT prophylaxis Current Visit: No Status: Acute Code(s): YMB0498 - SNOMED Code(s): 696176268 Comment: Lovenox SCDs in bed. (7) Diarrhea Current Visit: No Status: Acute Code(s): R19.7 - DIARRHEA, UNSPECIFIED SNOMED Code(s): 52861023 Comment: Persistent diarrhea, Likely ABX associated but not Cdiff. Continue Flagyl, Probiotic, Metamucil, and Immodium. (8) Chronic back pain Current Visit: No Status: Chronic Code(s): M54.9 - DORSALGIA, UNSPECIFIED; G89.29 - OTHER CHRONIC PAIN SNOMED Code(s): 544181336 Comment: Secondary to ependymoma Continue pregabalin, and acetaminophen. Change oxycodone liquid to 7.5mg AC with one dose PRN for transfer. Increase fentanyl patch to 100mcg daily. Appreciate input from pain control. (9) MATY (obstructive sleep apnea) Current Visit: No Status: Chronic Code(s): G47.33 - OBSTRUCTIVE SLEEP APNEA (ADULT) (PEDIATRIC) SNOMED Code(s): 26304825 Comment: Continue home BiPAP use. (10) Paraplegia Current Visit: No Status: Chronic Code(s): G82.20 - PARAPLEGIA, UNSPECIFIED SNOMED Code(s): 81377716 Comment: Secondary to ependymoma Cont with skin precautions - frequent turning, skin care. Cont pain management Plan for spinal stimulator implantation with Dr. Staton ([place]) eventually (11) Full code status Current Visit: No Status: Acute Code(s): Z78.9 - OTHER SPECIFIED HEALTH STATUS SNOMED Code(s): 885044391 Status and Disposition: Awaiting plastic surgery consult. Plan is to return home when able to do so functionally.
[2017-04-03] MEDS: fentaNYL PATCH 75 MCG/HR* 75 MCG TRANSDERM SCH (18:47)
[2017-04-03] MEDS: Enoxaparin(*) 40 MG/0.4 ML SYR SUBCUT SCH (18:54)
[2017-04-04] MEDS: Omeprazole CAP* 20 MG PO SCH (05:54)
[2017-04-04 06:32] LABS: Hematocrit 31 % (42-52); Hemoglobin 10.1 g/dl (14.0-18.0); Mean Corpuscular HGB Conc 33 g/dl (31-36); Mean Corpuscular Hemoglobin 28 pg (27-31); Mean Corpuscular Volume 83 fL (80-94); Mean Platelet Volume 9 um3 (7.4-10.4); Red Blood Count 3.68 10^6/ul (4.0-5.4); Red Cell Distribution Width 20 % (10.5-15); White Blood Count 8.2 10^3/ul (3.5-10.8)
[2017-04-04 06:48] LABS: BUN/Creatinine Ratio 30.5 (8-20); Calcium 9.5 mg/dL (8.6-10.3); EGFR African American 69.4 (>60); EGFR Non-African American 53.9 (>60); Potassium 4.1 mmol/L (3.5-5.0)
[2017-04-04] MEDS: fentaNYL Patch Check Q Shift 1 NOTE SCH ×2 (07:00→19:11)
[2017-04-04] MEDS: oxyCODONE ORAL.SOLN* 5 MG/5 ML UDC PO SCH ×3 (07:33→16:33)
[2017-04-04] MEDS: Loperamide CAP* 2 MG PO PRN ×2 (08:27→12:50)
[2017-04-04] MEDS: Psyllium PAK PO SCH (09:10)
[2017-04-04] MEDS: Aspirin EC Low Dose* 81 MG TAB.EC PO SCH (09:11)
[2017-04-04] MEDS: metroNIDAZOLE TAB* 250 MG PO SCH ×2 (09:11→20:10)
[2017-04-04] MEDS: Cyanocobalamin TAB* 500 MCG PO SCH (09:11)
[2017-04-04] MEDS: Potassium Chlor TAB* 10 MEQ TAB.ER PO SCH (09:11)
[2017-04-04] MEDS: Zinc Sulfate CAP* 220 MG PO SCH (09:11)
[2017-04-04] MEDS: Lactobacillus Acidophilu (GG)* 1 CAP CAP PO SCH ×2 (09:11→20:09)
[2017-04-04] MEDS: Cholecalciferol TAB* 1000 UNITS PO SCH (09:11)
[2017-04-04] MEDS: Folic Acid TAB* 1 MG PO SCH (09:11)
[2017-04-04] MEDS: Ferrous Gluconate TAB* 324 MG TAB PO SCH ×2 (09:12→20:10)
[2017-04-04] MEDS: Furosemide TAB* 40 MG PO SCH (09:12)
[2017-04-04] MEDS: Pregabalin CAP(*) 50 MG PO SCH ×3 (09:26→20:09)
[2017-04-04] MEDS: Nystatin CREAM* 15 GM TUBE TOPICAL SCH ×2 (09:27→20:11)
[2017-04-04] MEDS: Triamcinolone 0.025% OINT * 15 GM TUBE TOPICAL SCH ×2 (09:27→20:11)
[2017-04-04] MEDS: oxyCODONE TAB* 5 MG TAB PO PRN ×2 (09:54→18:27)
[2017-04-04] MEDS ORDERED: oxyCODONE ORAL.SOLN* 5 MG/5 ML UDC PO PRN (10:38)
--- NOTE | 2017-04-04 11:48 | PN ---
Progress Note - Progress Note Date of Service: 04/04/17 SOAP: Subjective: He is without complaint today Nurses report no new problems Objective: Temp Pulse Resp BP Pulse Ox 97.8 F 81 18 135/66 96 04/04/17 07:32 04/04/17 07:32 04/04/17 10:10 04/04/17 07:32 04/04/17 07:32 PEX: Sacral pressure ulcer is clean without odor or purulence. The surrounding skin is clean and pink without maceration or breakdown. At the midline there is exposed fascia over the bone which is clean and shows no evidence of granulation tissue overlying this area. The remainder of the ulcer has some areas of dried and necrotic fat that requires debridement but is superficial and does not track or significantly undermine. Sharp debridement was performed using scissors of any non-viable tissue and bleeding was moderate and was controlled with pressure. Laboratory Results - last 24 hr 04/04/17 04/04/17 06:00 06:00 WBC 8.2 RBC 3.68 L Hgb 10.1 L Hct 31 L MCV 83 MCH 28 MCHC 33 RDW 20 H Plt Count 208 MPV 9 Neut % (Auto) 49.5 Lymph % (Auto) 31.1 [place] % (Auto) 14.2 H Eos % (Auto) 3.8 Baso % (Auto) 1.4 Absolute Neuts (auto) 4.0 Absolute Lymphs (auto) 2.5 Absolute Monos (auto) 1.2 H Absolute Eos (auto) 0.3 Absolute Basos (auto) 0.1 Absolute Nucleated RBC 0 Nucleated RBC % 0 Sodium 142 Potassium 4.1 Chloride 106 Carbon Dioxide 31 Anion Gap 5 BUN 40 H Creatinine 1.31 H Est GFR ( Amer) 69.4 Est GFR (Non-Af Amer) 53.9 BUN/Creatinine Ratio 30.5 H Glucose 90 Calcium 9.5 Assessment: Sacral pressure ulcer-Stage 4--slow continued improvement. Plan: Will add Santyl twice daily to wound bed to assist with debridement and continue wet-to-dry NS moist gauze packing bid. The ulcer shows continued improvement and size measurements were also taken at this time. I will discuss with the patient's .
[2017-04-04] MEDS: Ascorbic Acid TAB* 500 MG PO SCH (11:53)
--- NOTE | 2017-04-04 12:45 | PN ---
Subjective Date of Service: 04/04/17 Interval History: Called in evening on 01/02 about oversedation in patient with decreases in appetite around the evening meal. Fentanyl patch decreased brady to 75mcg at that time. No new complaints overnight, pain levels with movement consistent with previous days with no subjective improvement with increase in oxycodone dose. in agreement with increase in dose again. Family History: Unchanged from Admission Social History: Unchanged from Admission - no changes noted Past Medical History: Unchanged from Admission Objective Active Medications: Acetaminophen (Tylenol Tab*) 650 mg PO Q6H PRN PRN Reason: FEVER/PAIN Ascorbic Acid (Vitamin C Tab*) 500 mg PO DAILY [facility] Last Admin: 04/04/17 11:53 Dose: 500 mg Aspirin (Aspirin Ec Low Dose*) 81 mg PO DAILY [facility] Last Admin: 04/04/17 09:11 Dose: 81 mg Bisacodyl (Dulcolax Supp*) 10 mg [place] DAILY PRN PRN Reason: CONSTIPATION Cholecalciferol (Vitamin D Tab*) 5,000 units PO DAILY [facility] Last Admin: 04/04/17 09:11 Dose: 5,000 units Collagenase (Santyl 250 Mg/Gm Oint*) 1 applic TOPICAL .SEE INSTRUCTIONS [facility] Cyanocobalamin (Vitamin B12 Tab*) 1,000 mcg PO DAILY [facility] Last Admin: 04/04/17 09:11 Dose: 1,000 mcg Docusate Sodium (Colace Cap*) 100 mg PO BID PRN PRN Reason: CONSTIPATION Enoxaparin Sodium (Lovenox(*)) 40 mg SUBCUT Q24H [facility] Last Admin: 04/03/17 18:54 Dose: 40 mg Fentanyl (Duragesic Patch 75 Mcg/Hr*) 75 mcg TRANSDERM Q72H [facility] Last Admin: 04/03/17 18:47 Dose: 75 mcg Ferrous Gluconate (Fergon Tab*) 324 mg PO BID [facility] Last Admin: 04/04/17 09:12 Dose: 324 mg Folic Acid (Folvite Tab*) 0.5 mg PO DAILY [facility] Last Admin: 04/04/17 09:11 Dose: 0.5 mg Furosemide (Lasix Tab*) 40 mg PO DAILY [facility] Last Admin: 04/04/17 09:12 Dose: 40 mg Heparin Sodium (Porcine) (Heparin Flush Picc/Ml/Cvc(*)) 1 ml FLUSH 0600,1800 [facility] PRN Reason: Protocol Last Admin: 04/04/17 10:06 Dose: 1 ml Ceftriaxone Sodium 2 gm/ (Sodium Chloride) 100 mls @ 200 mls/hr IVPB DAILY [facility] Last Admin: 04/04/17 09:12 Dose: 200 mls/hr Lactobacillus Rhamnosus (Culturelle*) 1 cap PO BID [facility] Last Admin: 04/04/17 09:11 Dose: 1 cap Loperamide HCl (Imodium Cap*) 2 mg PO .SEE DIRECTIONS PRN PRN Reason: DIARRHEA Last Admin: 04/04/17 08:27 Dose: 2 mg Metronidazole (Flagyl Tab*) 500 mg PO BID [facility] Last Admin: 04/04/17 09:11 Dose: 500 mg Nystatin (Nystatin Cream*) 1 applic TOPICAL BID [facility] Last Admin: 04/04/17 09:27 Dose: 1 applic Omeprazole (Prilosec Cap*) 40 mg PO DAILY@0600 [facility] Last Admin: 04/04/17 05:54 Dose: 40 mg Ondansetron HCl (Zofran Odt Tab*) 4 mg PO Q8H PRN PRN Reason: NAUSEA/VOMITING Oxycodone HCl (Roxycodone Tab*) 5 mg PO Q4H PRN PRN Reason: PAIN - MODERATE TO SEVERE Last Admin: 04/04/17 09:54 Dose: 5 mg Oxycodone HCl (Oxycodone Oral.Soln*) 10 mg PO DAILY PRN PRN Reason: PAIN Oxycodone HCl (Oxycodone Oral.Soln*) 10 mg PO AC [facility] Last Admin: 04/04/17 11:53 Dose: 10 mg Pharmacy Profile Note (Fentanyl Patch Check Q Shift) 1 note N/A 0700,1900 [facility] Last Admin: 04/04/17 07:00 Dose: 1 note Potassium Chloride (Klor Con Er Tab*) 10 meq PO DAILY [facility] Last Admin: 04/04/17 09:11 Dose: 10 meq Pregabalin (Lyrica Cap(*)) 150 mg PO TID [facility] Last Admin: 04/04/17 09:26 Dose: 150 mg Psyllium Hydrophilic Mucilloid (Metamucil Young*) 1 pkt PO DAILY [facility] Last Admin: 04/04/17 09:10 Dose: 1 pkt Triamcinolone Acetonide (Triamcinolone 0.025% Oint *) 1 applic TOPICAL BID [facility] Last Admin: 04/04/17 09:27 Dose: 1 applic Zinc Sulfate (Zinc-220 Cap*) 220 mg PO DAILY [facility] Last Admin: 04/04/17 09:11 Dose: 220 mg Vital Signs 04/03/17 04/03/17 04/03/17 13:50 14:06 14:07 Temperature 99.4 F Pulse Rate 93 Respiratory 18 16 16 Rate Blood Pressure 161/78 (mmHg) O2 Sat by Pulse 98 Oximetry 04/03/17 04/03/17 04/03/17 14:08 14:40 15:37 Temperature 98.3 F Pulse Rate 88 Respiratory 16 16 14 Rate Blood Pressure 131/62 (mmHg) O2 Sat by Pulse 94 Oximetry 04/03/17 04/03/17 04/03/17 16:08 16:57 18:35 Temperature Pulse Rate Respiratory 16 14 16 Rate Blood Pressure (mmHg) O2 Sat by Pulse Oximetry 04/03/17 04/03/17 04/03/17 18:57 20:15 20:39 Temperature 98.9 F Pulse Rate 92 Respiratory 16 15 16 Rate Blood Pressure 149/67 (mmHg) O2 Sat by Pulse 96 Oximetry 04/03/17 04/04/17 04/04/17 22:31 00:09 00:31 Temperature 98.4 F Pulse Rate 85 Respiratory 16 16 14 Rate Blood Pressure 139/47 (mmHg) O2 Sat by Pulse 93 Oximetry 04/04/17 04/04/17 04/04/17 04:38 07:32 07:33 Temperature 98.1 F 97.8 F Pulse Rate 70 81 Respiratory 16 16 18 Rate Blood Pressure 131/55 135/66 (mmHg) O2 Sat by Pulse 94 96 Oximetry 04/04/17 04/04/17 04/04/17 08:00 08:27 09:26 Temperature Pulse Rate Respiratory 18 16 16 Rate Blood Pressure (mmHg) O2 Sat by Pulse Oximetry 04/04/17 04/04/17 04/04/17 09:33 09:54 10:10 Temperature Pulse Rate Respiratory 18 18 18 Rate Blood Pressure (mmHg) O2 Sat by Pulse Oximetry 04/04/17 04/04/17 04/04/17 11:04 11:26 11:53 Temperature 97.7 F Pulse Rate 81 Respiratory 18 16 18 Rate Blood Pressure 151/55 (mmHg) O2 Sat by Pulse 97 Oximetry 04/04/17 11:54 Temperature Pulse Rate Respiratory 18 Rate Blood Pressure (mmHg) O2 Sat by Pulse Oximetry Oxygen Devices in Use Now: None Appearance: Patient is a 71yo male who appears stated age sitting comfortably in the hospital bed in [facility]. Eyes: No Scleral Icterus, PERRLA Ears/Nose/Mouth/Throat: NL Teeth, Lips, Gums, Clear Oropharnyx, Mucous Membranes Moist, - - No carotid bruit auscultated. Neck: NL Appearance and Movements; NL JVP, Trachea Midline Respiratory: Symmetrical Chest Expansion and Respiratory Effort, Clear to Auscultation Cardiovascular: NL Sounds; No Murmurs; No JVD, RRR, No Edema Abdominal: No Hepatosplenomegaly, - - Abdomen distended with normal BS in all 4 quadrants. Non-tender to palpation. Lymphatic: No Cervical Adenopathy Extremities: No Edema, No Clubbing, Cyanosis Skin: No Nodules or Sclerosis, - - Unable to see wound today. Ecchymosis noted on abdomen. Skin on heels beginning to peel without bleeding or breakdown. Neurological: Alert and Oriented x 3, - - Patient paralyzed and insensate from waist down. Result Diagrams: 04/04/17 06:00 04/04/17 06:00 Additional Lab and Data: 04/03/17 04/03/17 06:37 07:56 WBC 8.1 RBC 4.07 Hgb 11.0 L Hct 34 L MCV 83 MCH 27 MCHC 33 RDW 20 H Plt Count 210 MPV 8 Sodium 139 Potassium 4.0 Chloride 104 Carbon Dioxide 29 Anion Gap 6 BUN 39 H Creatinine 1.39 H Est GFR ( Amer) 64.8 Est GFR (Non-Af Amer) 50.4 BUN/Creatinine Ratio 28.1 H Glucose 103 H Calcium 9.9 Total Bilirubin 0.30 AST 12 L ALT 9 Alkaline Phosphatase 69 C-Reactive Protein 16.92 H Total Protein 5.9 L Albumin 3.2 Globulin 2.7 Albumin/Globulin Ratio 1.2 Assess/Plan/Problems-Billing . Assessment: 71 yo man with extreme pain chronically secondary to Ependymoma. Now with large sacral decubitus ulcer which has been debrided and is healing nicely. Accompanying debilitation associated with recent hospitalization having a negative effect on patient's mental state. Patient currently euthymic. - Patient Problems (1) Acute osteomyelitis of sacrum Current Visit: Yes Status: Acute Code(s): M46.28 - OSTEOMYELITIS OF VERTEBRA , SACRAL AND SACROCOCCYGEAL REGION SNOMED Code(s): 734381684 Comment: Continue Ceftriaxone and flagyl at current doses per ID. no signs of systemic or local infection (2) Chronic indwelling Fischer catheter Current Visit: Yes Status: Chronic Priority: High Code(s): Z92.89 - PERSONAL HISTORY OF OTHER MEDICAL TREATMENT SNOMED Code(s): 555583481 Comment: High risk of UTI - currently on ABX, no current evidence of UTI. (3) Neurogenic bladder Current Visit: Yes Status: Chronic Priority: High Code(s): N31.9 - NEUROMUSCULAR DYSFUNCTION OF BLADDER, UNSPECIFIED SNOMED Code(s): 961310782 Comment: Indwelling urinary catheter, no sign of current UTI. (4) Neurogenic bowel Current Visit: Yes Status: Chronic Priority: High Code(s): K59.2 - NEUROGENIC BOWEL, NOT ELSEWHERE CLASSIFIED SNOMED Code(s): 416434711 Comment: Having frequent loose bowel movements. Frequent pericare to prevent skin breakdown. Flagyl to help with diarrhea. Immodium after loose bowel movements. Metamucil for bulking. Stool becoming more formed per nursing staff. (5) Sacral decubitus ulcer, stage IV Current Visit: Yes Status: Chronic Priority: High Code(s): L89.154 - PRESSURE ULCER OF SACRAL REGION, STAGE 4 SNOMED Code(s): 871359828 Comment: Continuing wound care, debrided today by Dr Harmon, will start Santyl treatment. Continue wet to dry dressings. Appreciate input from surgery. Appreciate nutrition recommendations to support healing, attempt for 6 small protein rich meals daily and continue vitamins. Vitamin C started today per nutrition and . (6) DVT prophylaxis Current Visit: No Status: Acute Code(s): RZL6766 - SNOMED Code(s): 362245253 Comment: Lovenox SCDs in bed. (7) Diarrhea Current Visit: No Status: Acute Code(s): R19.7 - DIARRHEA, UNSPECIFIED SNOMED Code(s): 56010054 Comment: Persistent diarrhea, Likely ABX associated but not Cdiff. Continue Flagyl, Probiotic, Metamucil, and Immodium. (8) Chronic back pain Current Visit: No Status: Chronic Code(s): M54.9 - DORSALGIA, UNSPECIFIED; G89.29 - OTHER CHRONIC PAIN SNOMED Code(s): 004262721 Comment: Secondary to ependymoma Continue pregabalin, and acetaminophen. Change oxycodone liquid to 10mg AC with one dose PRN for transfer. Reduce Fentanyl patch to 75mcg. (9) MATY (obstructive sleep apnea) Current Visit: No Status: Chronic Code(s): G47.33 - OBSTRUCTIVE SLEEP APNEA (ADULT) (PEDIATRIC) SNOMED Code(s): 58773119 Comment: Continue home BiPAP use. (10) Paraplegia Current Visit: No Status: Chronic Code(s): G82.20 - PARAPLEGIA, UNSPECIFIED SNOMED Code(s): 92651053 Comment: Secondary to ependymoma Cont with skin precautions - frequent turning, skin care. Cont pain management Plan for spinal stimulator implantation with Dr. Staton ([place]) eventually (11) Full code status Current Visit: No Status: Acute Code(s): Z78.9 - OTHER SPECIFIED HEALTH STATUS SNOMED Code(s): 533162714 Status and Disposition: Awaiting plastic surgery consult. Plan is to return home when able to do so functionally.
[2017-04-04] MEDS ORDERED: Diphenoxylat/Atrop 2.5-0.025M* 1 TAB ONE (14:37)
[2017-04-04] MEDS: Diphenoxylat/Atrop 2.5-0.025M* 1 TAB PO SCH ×3 (14:40→20:10)
[2017-04-04] MEDS: Enoxaparin(*) 40 MG/0.4 ML SYR SUBCUT SCH (17:54)
[2017-04-04] MEDS: Collagenase 250 MG/GM OINT* 30 GM TOPICAL SCH (20:10)
[2017-04-05] MEDS: Omeprazole CAP* 20 MG PO SCH (05:55)
[2017-04-05 06:21] LABS: Hematocrit 30 % (42-52); Hemoglobin 10.1 g/dl (14.0-18.0); Mean Corpuscular HGB Conc 34 g/dl (31-36); Mean Corpuscular Hemoglobin 28 pg (27-31); Mean Corpuscular Volume 83 fL (80-94); Mean Platelet Volume 8 um3 (7.4-10.4); Red Cell Distribution Width 20 % (10.5-15); White Blood Count 7.9 10^3/ul (3.5-10.8)
[2017-04-05 06:36] LABS: BUN/Creatinine Ratio 26.8 (8-20); Calcium 9.6 mg/dL (8.6-10.3); EGFR African American 65.3 (>60); EGFR Non-African American 50.8 (>60)
[2017-04-05] MEDS: fentaNYL Patch Check Q Shift 1 NOTE SCH ×2 (06:49→19:11)
[2017-04-05] MEDS: oxyCODONE ORAL.SOLN* 5 MG/5 ML UDC PO SCH ×3 (07:48→16:55)
[2017-04-05] MEDS: Triamcinolone 0.025% OINT * 15 GM TUBE TOPICAL SCH ×2 (08:05→20:30)
[2017-04-05] MEDS: Nystatin CREAM* 15 GM TUBE TOPICAL SCH ×2 (08:06→20:30)
[2017-04-05] MEDS: Collagenase 250 MG/GM OINT* 30 GM TOPICAL SCH ×2 (08:07→20:30)
[2017-04-05] MEDS: Aspirin EC Low Dose* 81 MG TAB.EC PO SCH (09:37)
[2017-04-05] MEDS: Cholecalciferol TAB* 1000 UNITS PO SCH (09:37)
[2017-04-05] MEDS: Lactobacillus Acidophilu (GG)* 1 CAP CAP PO SCH ×2 (09:37→20:05)
[2017-04-05] MEDS: Zinc Sulfate CAP* 220 MG PO SCH (09:37)
[2017-04-05] MEDS: Folic Acid TAB* 1 MG PO SCH (09:38)
[2017-04-05] MEDS: Diphenoxylat/Atrop 2.5-0.025M* 1 TAB PO SCH ×4 (09:38→20:05)
[2017-04-05] MEDS: Potassium Chlor TAB* 10 MEQ TAB.ER PO SCH (09:38)
[2017-04-05] MEDS: Furosemide TAB* 40 MG PO SCH (09:39)
[2017-04-05] MEDS: metroNIDAZOLE TAB* 250 MG PO SCH ×2 (09:39→20:05)
[2017-04-05] MEDS: Pregabalin CAP(*) 50 MG PO SCH ×3 (09:39→20:05)
[2017-04-05] MEDS: Ferrous Gluconate TAB* 324 MG TAB PO SCH ×2 (09:39→20:05)
[2017-04-05] MEDS: Ascorbic Acid TAB* 500 MG PO SCH (09:39)
[2017-04-05] MEDS: Cyanocobalamin TAB* 500 MCG PO SCH (09:39)
--- NOTE | 2017-04-05 11:13 | PN ---
Progress Note - Progress Note Date of Service: 04/05/17 SOAP: Subjective: CC: decubitus ulcer HPI: 71 year old man with decubitus ulcer, feeling better and eating. No fever , rash, or diarrhea. Objective: [] Vital Signs Temp 36.8 C 04/05/17 06:51 Pulse 75 04/05/17 06:51 Resp 18 04/05/17 09:39 BP 157/62 04/05/17 06:51 Pulse Ox 98 04/05/17 06:51 Intake & Output 04/04/17 04/05/17 04/05/17 18:59 06:59 18:59 Intake Total 1260 200 129 Output Total 650 800 Balance 610 -600 129 Intake: IV Fluids 20 129 ABX - CEFTRIAXONE 109 NS (0.9%) 20 20 IVPB 110 ABX - CEFTRIAXONE 110 Oral 1130 200 Output: Fischer 650 800 Other: # Bowel Movements 1 Estimated Stool Amount Medium Gen:awake, no distress HEENT:no thrush Heart:RRR no murmur Lungs:CTA BL Abd:+BS NTND soft Skin: no rash Laboratory Results - last 24 hr 04/05/17 04/05/17 06:00 06:00 WBC 7.9 RBC 3.60 L Hgb 10.1 L Hct 30 L MCV 83 MCH 28 MCHC 34 RDW 20 H Plt Count 174 MPV 8 Neut % (Auto) 46.3 Lymph % (Auto) 34.0 [place] % (Auto) 14.0 H Eos % (Auto) 4.2 Baso % (Auto) 1.5 Absolute Neuts (auto) 3.6 Absolute Lymphs (auto) 2.7 Absolute Monos (auto) 1.1 H Absolute Eos (auto) 0.3 Absolute Basos (auto) 0.1 Absolute Nucleated RBC 0 Nucleated RBC % 0.1 Sodium 140 Potassium 4.0 Chloride 105 Carbon Dioxide 32 Anion Gap 3 BUN 37 H Creatinine 1.38 H Est GFR ( Amer) 65.3 Est GFR (Non-Af Amer) 50.8 BUN/Creatinine Ratio 26.8 H Glucose 98 Calcium 9.6 Assessment: 1. acute osteomyelitis, sacrum 2. sacral decubitus ulcer 3. elevated CRP, improving Plan: 1. continue ceftriaxone and flagyl day and then PO antibiotics.
[2017-04-05] MEDS ORDERED: oxyCODONE TAB* 5 MG TAB PO PRN (15:31)
[2017-04-05] MEDS: Enoxaparin(*) 40 MG/0.4 ML SYR SUBCUT SCH (17:40)
--- NOTE | 2017-04-05 20:23 | PN ---
Subjective Date of Service: 04/05/17 Interval History: Pt with phantom pains in legs/feet with prolonged sitting, more so than the low back pain. Video sent to Dr. Yassine Blankenship of [facility] ( Plastic Surgery) by Dr. Pacheco of sacral decub. BMs still frequent with position changes. Family History: Unchanged from Admission Social History: Unchanged from Admission - no changes noted Past Medical History: Unchanged from Admission Objective Active Medications: Acetaminophen (Tylenol Tab*) 650 mg PO Q6H PRN PRN Reason: FEVER/PAIN Ascorbic Acid (Vitamin C Tab*) 500 mg PO DAILY [facility] Last Admin: 04/05/17 09:39 Dose: 500 mg Aspirin (Aspirin Ec Low Dose*) 81 mg PO DAILY [facility] Last Admin: 04/05/17 09:37 Dose: 81 mg Bisacodyl (Dulcolax Supp*) 10 mg [place] DAILY PRN PRN Reason: CONSTIPATION Cholecalciferol (Vitamin D Tab*) 5,000 units PO DAILY [facility] Last Admin: 04/05/17 09:37 Dose: 5,000 units Collagenase (Santyl 250 Mg/Gm Oint*) 1 applic TOPICAL .SEE INSTRUCTIONS [facility] Last Admin: 04/05/17 08:07 Dose: 1 applic Cyanocobalamin (Vitamin B12 Tab*) 1,000 mcg PO DAILY [facility] Last Admin: 04/05/17 09:39 Dose: 1,000 mcg Diphenoxylate HCl/Atropine (Lomotil Tab*) 1 tab PO QID [facility] Last Admin: 04/05/17 20:05 Dose: 1 tab Docusate Sodium (Colace Cap*) 100 mg PO BID PRN PRN Reason: CONSTIPATION Enoxaparin Sodium (Lovenox(*)) 40 mg SUBCUT Q24H [facility] Last Admin: 04/05/17 17:40 Dose: 40 mg Fentanyl (Duragesic Patch 75 Mcg/Hr*) 75 mcg TRANSDERM Q72H [facility] Last Admin: 04/03/17 18:47 Dose: 75 mcg Ferrous Gluconate (Fergon Tab*) 324 mg PO BID [facility] Last Admin: 04/05/17 20:05 Dose: 324 mg Folic Acid (Folvite Tab*) 0.5 mg PO DAILY [facility] Last Admin: 04/05/17 09:38 Dose: 0.5 mg Furosemide (Lasix Tab*) 40 mg PO DAILY [facility] Last Admin: 04/05/17 09:39 Dose: 40 mg Heparin Sodium (Porcine) (Heparin Flush Picc/Ml/Cvc(*)) 1 ml FLUSH 0600,1800 [facility] PRN Reason: Protocol Last Admin: 04/05/17 17:41 Dose: 1 ml Ceftriaxone Sodium 2 gm/ (Sodium Chloride) 100 mls @ 200 mls/hr IVPB DAILY [facility] Last Admin: 04/05/17 09:32 Dose: 200 mls/hr Lactobacillus Rhamnosus (Culturelle*) 1 cap PO BID [facility] Last Admin: 04/05/17 20:05 Dose: 1 cap Metronidazole (Flagyl Tab*) 500 mg PO BID [facility] Last Admin: 04/05/17 20:05 Dose: 500 mg Nystatin (Nystatin Cream*) 1 applic TOPICAL BID [facility] Last Admin: 04/05/17 08:06 Dose: 1 applic Omeprazole (Prilosec Cap*) 40 mg PO DAILY@0600 [facility] Last Admin: 04/05/17 05:55 Dose: 40 mg Ondansetron HCl (Zofran Odt Tab*) 4 mg PO Q8H PRN PRN Reason: NAUSEA/VOMITING Oxycodone HCl (Oxycodone Oral.Soln*) 10 mg PO DAILY PRN PRN Reason: PAIN Oxycodone HCl (Oxycodone Oral.Soln*) 10 mg PO AC [facility] Last Admin: 04/05/17 16:55 Dose: 10 mg Oxycodone HCl (Roxycodone Tab*) 5 mg PO Q4H PRN PRN Reason: PAIN Pharmacy Profile Note (Fentanyl Patch Check Q Shift) 1 note N/A 0700,1900 [facility] Last Admin: 04/05/17 19:11 Dose: 1 note Potassium Chloride (Klor Con Er Tab*) 10 meq PO DAILY [facility] Last Admin: 04/05/17 09:38 Dose: 10 meq Pregabalin (Lyrica Cap(*)) 150 mg PO TID [facility] Last Admin: 04/05/17 20:05 Dose: 150 mg Triamcinolone Acetonide (Triamcinolone 0.025% Oint *) 1 applic TOPICAL BID [facility] Last Admin: 04/05/17 08:05 Dose: 1 applic Zinc Sulfate (Zinc-220 Cap*) 220 mg PO DAILY [facility] Last Admin: 04/05/17 09:37 Dose: 220 mg Vital Signs 04/04/17 04/05/17 04/05/17 22:09 00:08 04:12 Temperature 97.6 F 98.3 F Pulse Rate 71 75 Respiratory 14 16 16 Rate Blood Pressure 151/63 148/62 (mmHg) O2 Sat by Pulse 97 97 Oximetry 04/05/17 04/05/17 04/05/17 06:51 07:48 08:00 Temperature 98.2 F Pulse Rate 75 Respiratory 14 18 18 Rate Blood Pressure 157/62 (mmHg) O2 Sat by Pulse 98 Oximetry 04/05/17 04/05/17 04/05/17 09:38 09:39 11:19 Temperature Pulse Rate Respiratory 18 18 18 Rate Blood Pressure (mmHg) O2 Sat by Pulse Oximetry 04/05/17 04/05/17 04/05/17 11:20 11:58 12:34 Temperature 98.4 F Pulse Rate 78 Respiratory 18 18 Rate Blood Pressure (mmHg) O2 Sat by Pulse 98 Oximetry 04/05/17 04/05/17 04/05/17 13:00 13:52 13:53 Temperature 98.4 F Pulse Rate 77 Respiratory 16 16 18 Rate Blood Pressure 145/68 (mmHg) O2 Sat by Pulse 97 Oximetry 04/05/17 04/05/17 04/05/17 15:52 16:25 16:54 Temperature 98.3 F Pulse Rate 84 Respiratory 18 18 18 Rate Blood Pressure 163/69 (mmHg) O2 Sat by Pulse 98 Oximetry 04/05/17 04/05/17 04/05/17 16:55 18:26 20:05 Temperature Pulse Rate Respiratory 18 16 16 Rate Blood Pressure (mmHg) O2 Sat by Pulse Oximetry Oxygen Devices in Use Now: None Appearance: No acute distress. Eyes: No Scleral Icterus, PERRLA Ears/Nose/Mouth/Throat: NL Teeth, Lips, Gums, Mucous Membranes Moist Neck: NL Appearance and Movements; NL JVP, Trachea Midline Respiratory: Symmetrical Chest Expansion and Respiratory Effort, Clear to Auscultation Cardiovascular: NL Sounds; No Murmurs; No JVD, RRR, No Edema Abdominal: NL Sounds; No Tenderness; No Distention, No Hepatosplenomegaly Extremities: No Edema Skin: - - stage IV sacrad decub 10x9cm, few cms deep as seen on video Neurological: Alert and Oriented x 3, - - no sensation(other than phantom pains ) below waist; paraplegic Result Diagrams: 04/05/17 06:00 04/05/17 06:00 Additional Lab and Data: Laboratory Results - last 24 hr 04/05/17 04/05/17 06:00 06:00 WBC 7.9 RBC 3.60 L Hgb 10.1 L Hct 30 L MCV 83 MCH 28 MCHC 34 RDW 20 H Plt Count 174 MPV 8 Neut % (Auto) 46.3 Lymph % (Auto) 34.0 [place] % (Auto) 14.0 H Eos % (Auto) 4.2 Baso % (Auto) 1.5 Absolute Neuts (auto) 3.6 Absolute Lymphs (auto) 2.7 Absolute Monos (auto) 1.1 H Absolute Eos (auto) 0.3 Absolute Basos (auto) 0.1 Absolute Nucleated RBC 0 Nucleated RBC % 0.1 Sodium 140 Potassium 4.0 Chloride 105 Carbon Dioxide 32 Anion Gap 3 BUN 37 H Creatinine 1.38 H Est GFR ( Amer) 65.3 Est GFR (Non-Af Amer) 50.8 BUN/Creatinine Ratio 26.8 H Glucose 98 Calcium 9.6 Assess/Plan/Problems-Billing . Assessment: 71 yo man with extreme pain and paraplegia chronically secondary to Ependymoma. Now with large Stage IV sacral decubitus ulcer which has been debrided and is slowly healing. Seeking Plastic surgery consultation at [facility] for possible flap. - Patient Problems (1) Acute osteomyelitis of sacrum Current Visit: Yes Status: Acute Code(s): M46.28 - OSTEOMYELITIS OF VERTEBRA , SACRAL AND SACROCOCCYGEAL REGION SNOMED Code(s): 584446152 Comment: Continue Ceftriaxone and flagyl at current doses per ID. no signs of systemic or local infection (2) Chronic back pain Current Visit: No Status: Chronic Code(s): M54.9 - DORSALGIA, UNSPECIFIED; G89.29 - OTHER CHRONIC PAIN SNOMED Code(s): 562043020 Comment: Secondary to ependymoma and sacral decub Continue pregabalin, and acetaminophen. oxycodone liquid to 10mg AC with one dose PRN for transfer. Fentanyl patch to 75mcg. (3) Chronic indwelling Fischer catheter Current Visit: Yes Status: Chronic Priority: High Code(s): Z92.89 - PERSONAL HISTORY OF OTHER MEDICAL TREATMENT SNOMED Code(s): 552965617 Comment: High risk of UTI - currently on ABX, no current evidence of UTI. (4) Neurogenic bladder Current Visit: Yes Status: Chronic Priority: High Code(s): N31.9 - NEUROMUSCULAR DYSFUNCTION OF BLADDER, UNSPECIFIED SNOMED Code(s): 153210954 Comment: Indwelling urinary catheter, no sign of current UTI. (5) Neurogenic bowel Current Visit: Yes Status: Chronic Priority: High Code(s): K59.2 - NEUROGENIC BOWEL, NOT ELSEWHERE CLASSIFIED SNOMED Code(s): 742784002 Comment: Having frequent loose bowel movements. Frequent pericare to prevent skin breakdown. Flagyl to help with diarrhea. Immodium after loose bowel movements. Metamucil for bulking. (6) Sacral decubitus ulcer, stage IV Current Visit: Yes Status: Chronic Priority: High Code(s): L89.154 - PRESSURE ULCER OF SACRAL REGION, STAGE 4 SNOMED Code(s): 077644656 Comment: Seeking plastic surgery consultation to [facility] (Yassine Blankenship MD) Continuing wound care, debrided 04/[address] Harmon, continue Santyl treatment. Continue wet to dry dressings. Appreciate input from surgery. Appreciate nutrition recommendations to support healing, attempt for 6 small protein rich meals daily and continue vitamins. Vitamin C started per nutrition and . (7) DVT prophylaxis Current Visit: No Status: Acute Code(s): YQS1558 - SNOMED Code(s): 653333678 Comment: Lovenox SCDs in bed. (8) Diarrhea Current Visit: No Status: Acute Code(s): R19.7 - DIARRHEA, UNSPECIFIED SNOMED Code(s): 68972619 Comment: Persistent diarrhea, Likely ABX associated. ID thinks not Cdiff. Continue Flagyl , Probiotic, Metamucil, and Immodium. Status and Disposition: f/u plastic surgery consult. Plan is to return home when able to do so functionally. Attending: Madan Tolentino
[2017-04-06] MEDS: Omeprazole CAP* 20 MG PO SCH (05:49)
[2017-04-06] MEDS: fentaNYL Patch Check Q Shift 1 NOTE SCH ×2 (06:58→18:53)
[2017-04-06] MEDS: oxyCODONE ORAL.SOLN* 5 MG/5 ML UDC PO SCH ×3 (08:32→16:45)
[2017-04-06] MEDS: Ferrous Gluconate TAB* 324 MG TAB PO SCH ×2 (09:23→21:59)
[2017-04-06] MEDS: Zinc Sulfate CAP* 220 MG PO SCH (09:23)
[2017-04-06] MEDS: Aspirin EC Low Dose* 81 MG TAB.EC PO SCH (09:23)
[2017-04-06] MEDS: Diphenoxylat/Atrop 2.5-0.025M* 1 TAB PO SCH ×4 (09:23→21:58)
[2017-04-06] MEDS: Furosemide TAB* 40 MG PO SCH (09:24)
[2017-04-06] MEDS: Ascorbic Acid TAB* 500 MG PO SCH (09:25)
[2017-04-06] MEDS: Potassium Chlor TAB* 10 MEQ TAB.ER PO SCH (09:25)
[2017-04-06] MEDS: Pregabalin CAP(*) 50 MG PO SCH ×3 (09:25→21:59)
[2017-04-06] MEDS: Cyanocobalamin TAB* 500 MCG PO SCH (09:25)
[2017-04-06] MEDS: Lactobacillus Acidophilu (GG)* 1 CAP CAP PO SCH ×2 (09:25→22:00)
[2017-04-06] MEDS: metroNIDAZOLE TAB* 250 MG PO SCH ×2 (09:25→21:58)
[2017-04-06] MEDS: Cholecalciferol TAB* 1000 UNITS PO SCH (09:25)
[2017-04-06] MEDS: Folic Acid TAB* 1 MG PO SCH (09:26)
--- NOTE | 2017-04-06 10:05 | PN ---
Progress Note - Progress Note Date of Service: 04/06/17 SOAP: Subjective: CC: decubitus ulcer HPI: 71 year old man with sacral decubitus ulcer, feeling better and eating. No fever, rash, or diarrhea, small soft stool 2-3 times per day. Appetite good. Bilateral heel pressure ulcers, present a few weeks, no pain or redness. Objective: [] Vital Signs Temp 36.8 C 04/06/17 06:01 Pulse 74 04/06/17 07:45 Resp 16 04/06/17 09:25 BP 126/52 04/06/17 07:45 Pulse Ox 96 04/06/17 07:45 Intake & Output 04/05/17 04/06/17 04/06/17 18:59 06:59 18:59 Intake Total 1509 240 Output Total 1250 500 Balance 259 -260 Intake: IV Fluids 129 ABX - CEFTRIAXONE 109 NS (0.9%) 20 Oral 1380 240 Output: Fischer 1250 500 Other: # Bowel Movements 1 Estimated Stool Amount Small Gen:awake, no distress HEENT:no thrush Heart:RRR no murmur Lungs:CTA BL Abd:+BS NTND soft Skin: no rash MSK: sacrum bandaged; BL medial heal 4 cm purple discoloration and eschar Assessment: 1. acute osteomyelitis, sacrum 2. 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 elevated CRP, improving Plan: 1. continue ceftriaxone and flagyl day and then PO antibiotics. Labs next week. Wound care.
[2017-04-06] MEDS: Nystatin CREAM* 15 GM TUBE TOPICAL SCH ×2 (10:22→22:00)
[2017-04-06] MEDS: Triamcinolone 0.025% OINT * 15 GM TUBE TOPICAL SCH (10:22)
[2017-04-06] MEDS: Collagenase 250 MG/GM OINT* 30 GM TOPICAL SCH (11:20)
--- NOTE | 2017-04-06 11:38 | PN ---
Progress Note - Progress Note Date of Service: 04/06/17 SOAP: Subjective: No complaints today Objective: Temp Pulse Resp BP Pulse Ox 98.2 F 74 16 126/52 96 04/06/17 06:01 04/06/17 07:45 04/06/17 10:32 04/06/17 07:45 04/06/17 07:45 PEX: Sacral decubitus remains clean with evidence of granulation tissue formation. No odor or purulence. Midline still with fibrous tissue overlying bone, no exposed bone noted now. Still with some fibrin in areas. Minimal sharp debridement today at bedside. Minimal bleeding controlled with pressure. Assessment: Sacral pressure ulcer Plan: Continue present wound care regimen-Santyl and wet to dry BID. IV anbx.
[2017-04-06] MEDS ORDERED: Clobetasol 0.05% OINT* 30 GM TUBE TOPICAL SCH (17:00)
[2017-04-06] MEDS: ECONAZOLE 1% TOPICAL SCH (17:34)
[2017-04-06] MEDS: CLOBETASOL 0.05% TOPICAL SCH (17:34)
[2017-04-06] MEDS: fentaNYL PATCH 75 MCG/HR* 75 MCG TRANSDERM SCH (18:24)
[2017-04-06] MEDS: Enoxaparin(*) 40 MG/0.4 ML SYR SUBCUT SCH (18:27)
--- NOTE | 2017-04-06 19:21 | PN ---
Subjective Date of Service: 04/06/17 Interval History: minimal sharp debridement at bedside by Dr. Harmon. no exposed bone seen. brought in some home creams for his hemorrhoids, chest rash and toe fungus. Family History: Unchanged from Admission Social History: Unchanged from Admission - no changes noted Past Medical History: Unchanged from Admission Objective Active Medications: Acetaminophen (Tylenol Tab*) 650 mg PO Q6H PRN PRN Reason: FEVER/PAIN Ascorbic Acid (Vitamin C Tab*) 500 mg PO DAILY [facility] Last Admin: 04/06/17 09:25 Dose: 500 mg Aspirin (Aspirin Ec Low Dose*) 81 mg PO DAILY [facility] Last Admin: 04/06/17 09:23 Dose: 81 mg Bisacodyl (Dulcolax Supp*) 10 mg [place] DAILY PRN PRN Reason: CONSTIPATION Cholecalciferol (Vitamin D Tab*) 5,000 units PO DAILY [facility] Last Admin: 04/06/17 09:25 Dose: 5,000 units Clobetasol Propionate (Clobetasol 0.05% Oint*) 1 applic TOPICAL DAILY [facility] Last Admin: 04/06/17 17:34 Dose: Not Given Collagenase (Santyl 250 Mg/Gm Oint*) 1 applic TOPICAL .SEE INSTRUCTIONS [facility] Last Admin: 04/06/17 11:20 Dose: 1 applic Cyanocobalamin (Vitamin B12 Tab*) 1,000 mcg PO DAILY [facility] Last Admin: 04/06/17 09:25 Dose: 1,000 mcg Diphenoxylate HCl/Atropine (Lomotil Tab*) 1 tab PO QID [facility] Last Admin: 04/06/17 16:45 Dose: 1 tab Docusate Sodium (Colace Cap*) 100 mg PO BID PRN PRN Reason: CONSTIPATION Econazole Nitrate (Econazole 1 % Cream (Nf)) 1 applic TOPICAL DAILY [facility] Last Admin: 04/06/17 17:34 Dose: Not Given Enoxaparin Sodium (Lovenox(*)) 40 mg SUBCUT Q24H [facility] Last Admin: 04/06/17 18:27 Dose: 40 mg Fentanyl (Duragesic Patch 75 Mcg/Hr*) 75 mcg TRANSDERM Q72H [facility] Last Admin: 04/06/17 18:24 Dose: 75 mcg Ferrous Gluconate (Fergon Tab*) 324 mg PO BID [facility] Last Admin: 04/06/17 09:23 Dose: 324 mg Folic Acid (Folvite Tab*) 0.5 mg PO DAILY [facility] Last Admin: 04/06/17 09:26 Dose: 0.5 mg Furosemide (Lasix Tab*) 40 mg PO DAILY [facility] Last Admin: 04/06/17 09:24 Dose: 40 mg Heparin Sodium (Porcine) (Heparin Flush Picc/Ml/Cvc(*)) 1 ml FLUSH 0600,1800 [facility] PRN Reason: Protocol Last Admin: 04/06/17 18:27 Dose: 1 ml Hydrocortisone (Hydrocortisone 2.5% Cream(Nf)) 1 applic TOPICAL TID [facility] Ceftriaxone Sodium 2 gm/ (Sodium Chloride) 100 mls @ 200 mls/hr IVPB DAILY [facility] Last Admin: 04/06/17 09:19 Dose: 200 mls/hr Lactobacillus Rhamnosus (Culturelle*) 1 cap PO BID [facility] Last Admin: 04/06/17 09:25 Dose: 1 cap Metronidazole (Flagyl Tab*) 500 mg PO BID [facility] Last Admin: 04/06/17 09:25 Dose: 500 mg Nystatin (Nystatin Cream*) 1 applic TOPICAL BID [facility] Last Admin: 04/06/17 10:22 Dose: 1 applic Omeprazole (Prilosec Cap*) 40 mg PO DAILY@0600 [facility] Last Admin: 04/06/17 05:49 Dose: 40 mg Ondansetron HCl (Zofran Odt Tab*) 4 mg PO Q8H PRN PRN Reason: NAUSEA/VOMITING Oxycodone HCl (Oxycodone Oral.Soln*) 10 mg PO DAILY PRN PRN Reason: PAIN Oxycodone HCl (Oxycodone Oral.Soln*) 10 mg PO AC [facility] Last Admin: 04/06/17 16:45 Dose: 10 mg Oxycodone HCl (Roxycodone Tab*) 5 mg PO Q4H PRN PRN Reason: PAIN Pharmacy Profile Note (Fentanyl Patch Check Q Shift) 1 note N/A 0700,1900 [facility] Last Admin: 04/06/17 18:53 Dose: 1 note Potassium Chloride (Klor Con Er Tab*) 10 meq PO DAILY [facility] Last Admin: 04/06/17 09:25 Dose: 10 meq Pregabalin (Lyrica Cap(*)) 150 mg PO TID [facility] Last Admin: 04/06/17 13:40 Dose: 150 mg Zinc Sulfate (Zinc-220 Cap*) 220 mg PO DAILY [facility] Last Admin: 04/06/17 09:23 Dose: 220 mg Vital Signs 04/05/17 04/05/17 04/05/17 20:00 20:05 20:08 Temperature 98.6 F Pulse Rate 83 Respiratory 18 16 18 Rate Blood Pressure 142/55 (mmHg) O2 Sat by Pulse 97 Oximetry 04/05/17 04/06/17 04/06/17 22:05 00:10 05:55 Temperature 98.4 F 98.2 F Pulse Rate 83 73 Respiratory 16 16 16 Rate Blood Pressure 159/67 137/60 (mmHg) O2 Sat by Pulse 95 95 Oximetry 04/06/17 04/06/17 04/06/17 06:01 07:45 08:20 Temperature 98.2 F 98.1 F Pulse Rate 73 74 Respiratory 16 15 18 Rate Blood Pressure 137/60 126/52 (mmHg) O2 Sat by Pulse 95 96 Oximetry 04/06/17 04/06/17 04/06/17 08:32 09:23 09:25 Temperature Pulse Rate Respiratory 18 16 16 Rate Blood Pressure (mmHg) O2 Sat by Pulse Oximetry 04/06/17 04/06/17 04/06/17 10:32 11:23 11:47 Temperature Pulse Rate Respiratory 16 18 18 Rate Blood Pressure (mmHg) O2 Sat by Pulse Oximetry 04/06/17 04/06/17 04/06/17 12:07 13:39 13:40 Temperature 98.0 F Pulse Rate 76 Respiratory 16 18 18 Rate Blood Pressure 155/68 (mmHg) O2 Sat by Pulse 98 Oximetry 04/06/17 04/06/17 04/06/17 15:35 15:37 16:45 Temperature 97.7 F Pulse Rate 81 Respiratory 16 17 16 Rate Blood Pressure 132/47 (mmHg) O2 Sat by Pulse 98 Oximetry 04/06/17 18:45 Temperature Pulse Rate Respiratory 18 Rate Blood Pressure (mmHg) O2 Sat by Pulse Oximetry Oxygen Devices in Use Now: None Appearance: No acute distress. Ears/Nose/Mouth/Throat: NL Teeth, Lips, Gums, Mucous Membranes Moist Respiratory: Symmetrical Chest Expansion and Respiratory Effort, Clear to Auscultation Cardiovascular: NL Sounds; No Murmurs; No JVD, RRR, - - 1+ edema Abdominal: NL Sounds; No Tenderness; No Distention Extremities: - - 1+ edema Skin: - - lacy faint rash on abdomen. pink rectangular scaley patch on left hip. sacral stage IV decub Neurological: Alert and Oriented x 3, - - paraplegic Result Diagrams: 04/05/17 06:00 04/05/17 06:00 Additional Lab and Data: Laboratory Results - last 24 hr 04/05/17 04/05/17 06:00 06:00 WBC 7.9 RBC 3.60 L Hgb 10.1 L Hct 30 L MCV 83 MCH 28 MCHC 34 RDW 20 H Plt Count 174 MPV 8 Neut % (Auto) 46.3 Lymph % (Auto) 34.0 [place] % (Auto) 14.0 H Eos % (Auto) 4.2 Baso % (Auto) 1.5 Absolute Neuts (auto) 3.6 Absolute Lymphs (auto) 2.7 Absolute Monos (auto) 1.1 H Absolute Eos (auto) 0.3 Absolute Basos (auto) 0.1 Absolute Nucleated RBC 0 Nucleated RBC % 0.1 Sodium 140 Potassium 4.0 Chloride 105 Carbon Dioxide 32 Anion Gap 3 BUN 37 H Creatinine 1.38 H Est GFR ( Amer) 65.3 Est GFR (Non-Af Amer) 50.8 BUN/Creatinine Ratio 26.8 H Glucose 98 Calcium 9.6 Assess/Plan/Problems-Billing . Assessment: 71 yo man with extreme pain and paraplegia chronically secondary to Ependymoma. Now with large Stage IV sacral decubitus ulcer which has been debrided and is slowly healing. Plastic surgery consultation at [facility] for possible flap. - Patient Problems (1) Acute osteomyelitis of sacrum Current Visit: Yes Status: Acute Code(s): M46.28 - OSTEOMYELITIS OF VERTEBRA , SACRAL AND SACROCOCCYGEAL REGION SNOMED Code(s): 729001516 Comment: Continue Ceftriaxone and flagyl at current doses per ID. no signs of systemic or local infection (2) Chronic back pain Current Visit: No Status: Chronic Code(s): M54.9 - DORSALGIA, UNSPECIFIED; G89.29 - OTHER CHRONIC PAIN SNOMED Code(s): 955006202 Comment: Secondary to ependymoma and sacral decub Continue pregabalin, and acetaminophen. oxycodone liquid to 10mg AC with one dose PRN for transfer. Fentanyl patch to 75mcg. (3) Chronic indwelling Fischer catheter Current Visit: Yes Status: Chronic Priority: High Code(s): Z92.89 - PERSONAL HISTORY OF OTHER MEDICAL TREATMENT SNOMED Code(s): 301304266 Comment: High risk of UTI - currently on ABX, no current evidence of UTI. (4) Neurogenic bladder Current Visit: Yes Status: Chronic Priority: High Code(s): N31.9 - NEUROMUSCULAR DYSFUNCTION OF BLADDER, UNSPECIFIED SNOMED Code(s): 494776448 Comment: Indwelling urinary catheter, no sign of current UTI. (5) Neurogenic bowel Current Visit: Yes Status: Chronic Priority: High Code(s): K59.2 - NEUROGENIC BOWEL, NOT ELSEWHERE CLASSIFIED SNOMED Code(s): 489423759 Comment: loose bowel movements with repositiong. Frequent pericare to prevent skin breakdown. Flagyl to help with diarrhea. Immodium after loose bowel movements. Metamucil for bulking. (6) Sacral decubitus ulcer, stage IV Current Visit: Yes Status: Chronic Priority: High Code(s): L89.154 - PRESSURE ULCER OF SACRAL REGION, STAGE 4 SNOMED Code(s): 310320844 Comment: Seeking plastic surgery consultation to [facility] (Yassine Blankenship MD) Continuing wound care, debrided 04/[address] Harmon, continue Santyl treatment. Continue wet to dry dressings. Appreciate input from surgery. Appreciate nutrition recommendations to support healing, attempt for 6 small protein rich meals daily and continue vitamins. Vitamin C started per nutrition and . (7) DVT prophylaxis Current Visit: No Status: Acute Code(s): JJG7916 - SNOMED Code(s): 929182691 Comment: Lovenox SCDs in bed. (8) Diarrhea Current Visit: No Status: Acute Code(s): R19.7 - DIARRHEA, UNSPECIFIED SNOMED Code(s): 55830826 Comment: Persistent diarrhea, Likely ABX associated. ID thinks not Cdiff. Continue Flagyl , Probiotic, Metamucil, and Immodium. Status and Disposition: f/u plastic surgery consult. Plan is to return home when able to do so functionally. Attending: Madan Tolentino
[2017-04-06] MEDS ORDERED: Hydrocortisone 2.5% CREAM(NF) 30 GM TUBE TOPICAL SCH (21:00)
[2017-04-06] MEDS: HYDROCORTISONE 2.5% TOPICAL SCH (23:01)
[2017-04-07] MEDS: Omeprazole CAP* 20 MG PO SCH (06:29)
[2017-04-07] MEDS: fentaNYL Patch Check Q Shift 1 NOTE SCH ×2 (07:19→18:46)
[2017-04-07] MEDS: oxyCODONE ORAL.SOLN* 5 MG/5 ML UDC PO SCH ×3 (07:59→17:13)
[2017-04-07] MEDS: ECONAZOLE 1% TOPICAL SCH (08:12)
[2017-04-07] MEDS: Nystatin CREAM* 15 GM TUBE TOPICAL SCH ×2 (08:14→21:10)
[2017-04-07] MEDS: CLOBETASOL 0.05% TOPICAL SCH (08:17)
[2017-04-07] MEDS: HYDROCORTISONE 2.5% TOPICAL SCH ×3 (08:22→22:08)
[2017-04-07] MEDS: Lactobacillus Acidophilu (GG)* 1 CAP CAP PO SCH ×2 (09:27→21:00)
[2017-04-07] MEDS: Folic Acid TAB* 1 MG PO SCH (09:27)
[2017-04-07] MEDS: Aspirin EC Low Dose* 81 MG TAB.EC PO SCH (09:28)
[2017-04-07] MEDS: Pregabalin CAP(*) 50 MG PO SCH ×3 (09:28→21:01)
[2017-04-07] MEDS: Zinc Sulfate CAP* 220 MG PO SCH (09:28)
[2017-04-07] MEDS: Ferrous Gluconate TAB* 324 MG TAB PO SCH ×2 (09:28→21:01)
[2017-04-07] MEDS: Cyanocobalamin TAB* 500 MCG PO SCH (09:29)
[2017-04-07] MEDS: Furosemide TAB* 40 MG PO SCH (09:29)
[2017-04-07] MEDS: Potassium Chlor TAB* 10 MEQ TAB.ER PO SCH (09:30)
[2017-04-07] MEDS: Ascorbic Acid TAB* 500 MG PO SCH (09:30)
[2017-04-07] MEDS: metroNIDAZOLE TAB* 250 MG PO SCH ×2 (09:30→21:01)
[2017-04-07] MEDS: Diphenoxylat/Atrop 2.5-0.025M* 1 TAB PO SCH ×4 (09:30→22:09)
[2017-04-07] MEDS: Cholecalciferol TAB* 1000 UNITS PO SCH (09:30)
[2017-04-07] MEDS: Collagenase 250 MG/GM OINT* 30 GM TOPICAL SCH (09:55)
[2017-04-07 09:58] LABS: Hematocrit 30 % (42-52); Mean Corpuscular HGB Conc 33 g/dl (31-36); Mean Corpuscular Hemoglobin 27 pg (27-31); Mean Corpuscular Volume 83 fL (80-94); Mean Platelet Volume 9 um3 (7.4-10.4); Red Blood Count 3.64 10^6/ul (4.0-5.4); Red Cell Distribution Width 20 % (10.5-15); White Blood Count 8.3 10^3/ul (3.5-10.8)
[2017-04-07 10:07] LABS: Albumin 2.9 g/dL (3.2-5.2); C Reactive Protein 17.82 mg/L (< 5.00); Calcium 9.5 mg/dL (8.6-10.3); EGFR African American 68.8 (>60); EGFR Non-African American 53.5 (>60); Globulin 2.7 g/dL (2-4); Potassium 4.1 mmol/L (3.5-5.0); Total Bilirubin 0.3 mg/dL (0.2-1.0); Total Protein 5.6 g/dL (6.4-8.9)
--- NOTE | 2017-04-07 16:48 | PN ---
Subjective Date of Service: 04/07/17 Interval History: Bowel movements slightly firmer, still incontinent with any transfer. Home creams being applied by RNs. Phantom pain in knee but overall pleased with pain regimen. Family History: Unchanged from Admission Social History: Unchanged from Admission - no changes noted Past Medical History: Unchanged from Admission Objective Active Medications: Acetaminophen (Tylenol Tab*) 650 mg PO Q6H PRN PRN Reason: FEVER/PAIN Ascorbic Acid (Vitamin C Tab*) 500 mg PO DAILY [facility] Last Admin: 04/07/17 09:30 Dose: 500 mg Aspirin (Aspirin Ec Low Dose*) 81 mg PO DAILY [facility] Last Admin: 04/07/17 09:28 Dose: 81 mg Bisacodyl (Dulcolax Supp*) 10 mg [place] DAILY PRN PRN Reason: CONSTIPATION Cholecalciferol (Vitamin D Tab*) 5,000 units PO DAILY [facility] Last Admin: 04/07/17 09:30 Dose: 5,000 units Clobetasol Propionate (Clobetasol 0.05% Oint*) 1 applic TOPICAL DAILY [facility] Last Admin: 04/07/17 08:17 Dose: 1 applic Collagenase (Santyl 250 Mg/Gm Oint*) 1 applic TOPICAL .SEE INSTRUCTIONS [facility] Last Admin: 04/07/17 09:55 Dose: 1 applic Cyanocobalamin (Vitamin B12 Tab*) 1,000 mcg PO DAILY [facility] Last Admin: 04/07/17 09:29 Dose: 1,000 mcg Diphenoxylate HCl/Atropine (Lomotil Tab*) 1 tab PO QID [facility] Last Admin: 04/07/17 12:54 Dose: 1 tab Docusate Sodium (Colace Cap*) 100 mg PO BID PRN PRN Reason: CONSTIPATION Econazole Nitrate (Econazole 1 % Cream (Nf)) 1 applic TOPICAL DAILY [facility] Last Admin: 04/07/17 08:12 Dose: 1 applic Enoxaparin Sodium (Lovenox(*)) 40 mg SUBCUT Q24H [facility] Last Admin: 04/06/17 18:27 Dose: 40 mg Fentanyl (Duragesic Patch 75 Mcg/Hr*) 75 mcg TRANSDERM Q72H [facility] Last Admin: 04/06/17 18:24 Dose: 75 mcg Ferrous Gluconate (Fergon Tab*) 324 mg PO BID [facility] Last Admin: 04/07/17 09:28 Dose: 324 mg Folic Acid (Folvite Tab*) 0.5 mg PO DAILY [facility] Last Admin: 04/07/17 09:27 Dose: 0.5 mg Furosemide (Lasix Tab*) 40 mg PO DAILY [facility] Last Admin: 04/07/17 09:29 Dose: 40 mg Heparin Sodium (Porcine) (Heparin Flush Picc/Ml/Cvc(*)) 1 ml FLUSH 0600,1800 [facility] PRN Reason: Protocol Last Admin: 04/07/17 10:28 Dose: 1 ml Hydrocortisone (Hydrocortisone 2.5% Cream(Nf)) 1 applic TOPICAL TID [facility] Last Admin: 04/07/17 15:55 Dose: 1 applic Ceftriaxone Sodium 2 gm/ (Sodium Chloride) 100 mls @ 200 mls/hr IVPB DAILY [facility] Last Admin: 04/07/17 09:28 Dose: 200 mls/hr Lactobacillus Rhamnosus (Culturelle*) 1 cap PO BID [facility] Last Admin: 04/07/17 09:27 Dose: 1 cap Metronidazole (Flagyl Tab*) 500 mg PO BID [facility] Last Admin: 04/07/17 09:30 Dose: 500 mg Nystatin (Nystatin Cream*) 1 applic TOPICAL BID [facility] Last Admin: 04/07/17 08:14 Dose: 1 applic Omeprazole (Prilosec Cap*) 40 mg PO DAILY@0600 [facility] Last Admin: 04/07/17 06:29 Dose: 40 mg Ondansetron HCl (Zofran Odt Tab*) 4 mg PO Q8H PRN PRN Reason: NAUSEA/VOMITING Oxycodone HCl (Oxycodone Oral.Soln*) 10 mg PO DAILY PRN PRN Reason: PAIN Oxycodone HCl (Oxycodone Oral.Soln*) 10 mg PO AC [facility] Last Admin: 04/07/17 11:50 Dose: 10 mg Oxycodone HCl (Roxycodone Tab*) 5 mg PO Q4H PRN PRN Reason: PAIN Pharmacy Profile Note (Fentanyl Patch Check Q Shift) 1 note N/A 0700,1900 [facility] Last Admin: 04/07/17 07:19 Dose: 1 note Potassium Chloride (Klor Con Er Tab*) 10 meq PO DAILY [facility] Last Admin: 04/07/17 09:30 Dose: 10 meq Pregabalin (Lyrica Cap(*)) 150 mg PO TID [facility] Last Admin: 04/07/17 14:33 Dose: 150 mg Zinc Sulfate (Zinc-220 Cap*) 220 mg PO DAILY [facility] Last Admin: 04/07/17 09:28 Dose: 220 mg Vital Signs 04/06/17 04/06/17 04/06/17 16:45 18:45 20:00 Temperature Pulse Rate Respiratory 16 18 18 Rate Blood Pressure (mmHg) O2 Sat by Pulse Oximetry 04/06/17 04/06/17 04/06/17 21:58 21:59 23:52 Temperature 98.7 F Pulse Rate 74 Respiratory 18 18 18 Rate Blood Pressure 137/55 (mmHg) O2 Sat by Pulse 96 Oximetry 04/06/17 04/06/17 04/07/17 23:58 23:59 00:06 Temperature 97.7 F Pulse Rate 74 Respiratory 16 16 15 Rate Blood Pressure 152/69 (mmHg) O2 Sat by Pulse 97 Oximetry 04/07/17 04/07/17 04/07/17 03:56 07:34 07:59 Temperature 97.9 F 98.2 F Pulse Rate 74 72 Respiratory 16 16 16 Rate Blood Pressure 140/57 136/63 (mmHg) O2 Sat by Pulse 94 97 Oximetry 04/07/17 04/07/17 04/07/17 09:28 09:30 09:59 Temperature Pulse Rate Respiratory 16 16 16 Rate Blood Pressure (mmHg) O2 Sat by Pulse Oximetry 04/07/17 04/07/17 04/07/17 11:50 12:54 13:50 Temperature Pulse Rate Respiratory 16 16 16 Rate Blood Pressure (mmHg) O2 Sat by Pulse Oximetry 04/07/17 14:33 Temperature Pulse Rate Respiratory 16 Rate Blood Pressure (mmHg) O2 Sat by Pulse Oximetry Oxygen Devices in Use Now: None Appearance: No acute distress. Ears/Nose/Mouth/Throat: NL Teeth, Lips, Gums, Mucous Membranes Moist Neck: NL Appearance and Movements; NL JVP, Trachea Midline Respiratory: Symmetrical Chest Expansion and Respiratory Effort, Clear to Auscultation Cardiovascular: NL Sounds; No Murmurs; No JVD, RRR Abdominal: NL Sounds; No Tenderness; No Distention, No Hepatosplenomegaly Extremities: No Clubbing, Cyanosis, - - trace edema, wearing NIKKI hose. Skin: - - sacral decub stage IV. improved rash on abdomen. Neurological: Alert and Oriented x 3, - - paraplegia below waist. Result Diagrams: 04/07/17 06:15 04/07/17 06:15 Additional Lab and Data: Laboratory Results - last 24 hr 04/05/17 04/05/17 06:00 06:00 WBC 7.9 RBC 3.60 L Hgb 10.1 L Hct 30 L MCV 83 MCH 28 MCHC 34 RDW 20 H Plt Count 174 MPV 8 Neut % (Auto) 46.3 Lymph % (Auto) 34.0 [place] % (Auto) 14.0 H Eos % (Auto) 4.2 Baso % (Auto) 1.5 Absolute Neuts (auto) 3.6 Absolute Lymphs (auto) 2.7 Absolute Monos (auto) 1.1 H Absolute Eos (auto) 0.3 Absolute Basos (auto) 0.1 Absolute Nucleated RBC 0 Nucleated RBC % 0.1 Sodium 140 Potassium 4.0 Chloride 105 Carbon Dioxide 32 Anion Gap 3 BUN 37 H Creatinine 1.38 H Est GFR ( Amer) 65.3 Est GFR (Non-Af Amer) 50.8 BUN/Creatinine Ratio 26.8 H Glucose 98 Calcium 9.6 Assess/Plan/Problems-Billing . Assessment: 71 yo man with extreme pain and paraplegia chronically secondary to Ependymoma. P/w large Stage IV sacral decubitus ulcer which has been debrided multiple times. Failed wound vac in [facility] and back inpatient. Plastic surgery consultation at [facility] for possible flap. - Patient Problems (1) Acute osteomyelitis of sacrum Current Visit: Yes Status: Acute Code(s): M46.28 - OSTEOMYELITIS OF VERTEBRA , SACRAL AND SACROCOCCYGEAL REGION SNOMED Code(s): 815112878 Comment: Continue Ceftriaxone and flagyl at current doses per ID. no signs of systemic or local infection (2) Chronic back pain Current Visit: No Status: Chronic Code(s): M54.9 - DORSALGIA, UNSPECIFIED; G89.29 - OTHER CHRONIC PAIN SNOMED Code(s): 960667655 Comment: Secondary to ependymoma and sacral decub Continue pregabalin, and acetaminophen. oxycodone liquid to 10mg AC with one dose PRN for transfer. Fentanyl patch to 75mcg. (3) Chronic indwelling Fischer catheter Current Visit: Yes Status: Chronic Priority: High Code(s): Z92.89 - PERSONAL HISTORY OF OTHER MEDICAL TREATMENT SNOMED Code(s): 192984673 Comment: High risk of UTI - currently on ABX, no current evidence of UTI. (4) Neurogenic bladder Current Visit: Yes Status: Chronic Priority: High Code(s): N31.9 - NEUROMUSCULAR DYSFUNCTION OF BLADDER, UNSPECIFIED SNOMED Code(s): 655723380 Comment: Indwelling urinary catheter, no sign of current UTI. (5) Neurogenic bowel Current Visit: Yes Status: Chronic Priority: High Code(s): K59.2 - NEUROGENIC BOWEL, NOT ELSEWHERE CLASSIFIED SNOMED Code(s): 038998917 Comment: loose bowel movements with repositioning. Frequent pericare to prevent skin breakdown. Flagyl to help with diarrhea. Immodium after loose bowel movements. Metamucil for bulking. (6) Sacral decubitus ulcer, stage IV Current Visit: Yes Status: Chronic Priority: High Code(s): L89.154 - PRESSURE ULCER OF SACRAL REGION, STAGE 4 SNOMED Code(s): 998817478 Comment: Plastic surgery consultation to [facility] (Yassine Blankenship MD) Continuing wound care, debrided 04/[address] Harmon, continue Santyl treatment. Continue wet to dry dressings. Appreciate input from surgery. Appreciate nutrition recommendations to support healing, attempt for 6 small protein rich meals daily and continue vitamins. Vitamin C started per nutrition and . (7) DVT prophylaxis Current Visit: No Status: Acute Code(s): CNR7107 - SNOMED Code(s): 686181349 Comment: Lovenox SCDs in bed. (8) Diarrhea Current Visit: No Status: Acute Code(s): R19.7 - DIARRHEA, UNSPECIFIED SNOMED Code(s): 43672888 Comment: Persistent loose BMs though more formed today, Likely ABX associated. ID thinks not Cdiff. Continue Flagyl, Probiotic, Metamucil, and Immodium. Status and Disposition: f/u plastic surgery consult. Plan is to return home vs potential transfer for plastic surgery flap surgery in [place]. Attending: Madan Tolentino
[2017-04-07] MEDS: Enoxaparin(*) 40 MG/0.4 ML SYR SUBCUT SCH (18:20)
[2017-04-08] MEDS: Omeprazole CAP* 20 MG PO SCH (06:02)
[2017-04-08] MEDS: fentaNYL Patch Check Q Shift 1 NOTE SCH ×2 (07:04→19:04)
[2017-04-08] MEDS: oxyCODONE ORAL.SOLN* 5 MG/5 ML UDC PO SCH ×3 (08:03→16:40)
[2017-04-08] MEDS: Cholecalciferol TAB* 1000 UNITS PO SCH (08:06)
[2017-04-08] MEDS: Lactobacillus Acidophilu (GG)* 1 CAP CAP PO SCH ×2 (08:07→20:56)
[2017-04-08] MEDS: metroNIDAZOLE TAB* 250 MG PO SCH ×2 (08:07→20:56)
[2017-04-08] MEDS: Diphenoxylat/Atrop 2.5-0.025M* 1 TAB PO SCH ×4 (08:08→20:56)
[2017-04-08] MEDS: Potassium Chlor TAB* 10 MEQ TAB.ER PO SCH (08:08)
[2017-04-08] MEDS: Zinc Sulfate CAP* 220 MG PO SCH (08:09)
[2017-04-08] MEDS: Ferrous Gluconate TAB* 324 MG TAB PO SCH ×2 (08:09→20:56)
[2017-04-08] MEDS: Furosemide TAB* 40 MG PO SCH (08:09)
[2017-04-08] MEDS: Cyanocobalamin TAB* 500 MCG PO SCH (08:10)
[2017-04-08] MEDS: Aspirin EC Low Dose* 81 MG TAB.EC PO SCH (08:10)
[2017-04-08] MEDS: Pregabalin CAP(*) 50 MG PO SCH ×3 (08:10→20:56)
[2017-04-08] MEDS: Folic Acid TAB* 1 MG PO SCH (08:13)
[2017-04-08] MEDS: Ascorbic Acid TAB* 500 MG PO SCH (08:13)
[2017-04-08] MEDS: ECONAZOLE 1% TOPICAL SCH (08:28)
[2017-04-08] MEDS: CLOBETASOL 0.05% TOPICAL SCH (08:29)
[2017-04-08] MEDS: Nystatin CREAM* 15 GM TUBE TOPICAL SCH ×2 (08:32→20:59)
[2017-04-08] MEDS: HYDROCORTISONE 2.5% TOPICAL SCH ×3 (08:34→20:57)
--- NOTE | 2017-04-08 14:45 | PN ---
Subjective Date of Service: 04/08/17 Interval History: Patient has no acute complaints. Pain 4/10 when seated on 2 different occasions. Patient states that his diarrhea has much improved. Patient will talk to the surgeon in [facility] again tomorrow and they are pleased with the plan of action. Family History: Unchanged from Admission Social History: Unchanged from Admission - no changes noted Past Medical History: Unchanged from Admission Objective Active Medications: Acetaminophen (Tylenol Tab*) 650 mg PO Q6H PRN PRN Reason: FEVER/PAIN Ascorbic Acid (Vitamin C Tab*) 500 mg PO DAILY [facility] Last Admin: 04/08/17 08:13 Dose: 500 mg Aspirin (Aspirin Ec Low Dose*) 81 mg PO DAILY [facility] Last Admin: 04/08/17 08:10 Dose: 81 mg Bisacodyl (Dulcolax Supp*) 10 mg [place] DAILY PRN PRN Reason: CONSTIPATION Cholecalciferol (Vitamin D Tab*) 5,000 units PO DAILY [facility] Last Admin: 04/08/17 08:06 Dose: 5,000 units Clobetasol Propionate (Clobetasol 0.05% Oint*) 1 applic TOPICAL DAILY [facility] Last Admin: 04/08/17 08:29 Dose: 1 applic Collagenase (Santyl 250 Mg/Gm Oint*) 1 applic TOPICAL .SEE INSTRUCTIONS [facility] Last Admin: 04/07/17 09:55 Dose: 1 applic Cyanocobalamin (Vitamin B12 Tab*) 1,000 mcg PO DAILY [facility] Last Admin: 04/08/17 08:10 Dose: 1,000 mcg Diphenoxylate HCl/Atropine (Lomotil Tab*) 1 tab PO QID [facility] Last Admin: 04/08/17 12:59 Dose: 1 tab Docusate Sodium (Colace Cap*) 100 mg PO BID PRN PRN Reason: CONSTIPATION Econazole Nitrate (Econazole 1 % Cream (Nf)) 1 applic TOPICAL DAILY [facility] Last Admin: 04/08/17 08:28 Dose: 1 applic Enoxaparin Sodium (Lovenox(*)) 40 mg SUBCUT Q24H [facility] Last Admin: 04/07/17 18:20 Dose: 40 mg Fentanyl (Duragesic Patch 75 Mcg/Hr*) 75 mcg TRANSDERM Q72H [facility] Last Admin: 04/06/17 18:24 Dose: 75 mcg Ferrous Gluconate (Fergon Tab*) 324 mg PO BID [facility] Last Admin: 04/08/17 08:09 Dose: 324 mg Folic Acid (Folvite Tab*) 0.5 mg PO DAILY [facility] Last Admin: 04/08/17 08:13 Dose: 0.5 mg Furosemide (Lasix Tab*) 40 mg PO DAILY [facility] Last Admin: 04/08/17 08:09 Dose: 40 mg Heparin Sodium (Porcine) (Heparin Flush Picc/Ml/Cvc(*)) 1 ml FLUSH 0600,1800 [facility] PRN Reason: Protocol Last Admin: 04/08/17 11:17 Dose: 1 ml Hydrocortisone (Hydrocortisone 2.5% Cream(Nf)) 1 applic TOPICAL TID [facility] Last Admin: 04/08/17 14:03 Dose: 1 applic Ceftriaxone Sodium 2 gm/ (Sodium Chloride) 100 mls @ 200 mls/hr IVPB DAILY [facility] Last Admin: 04/08/17 08:23 Dose: 200 mls/hr Lactobacillus Rhamnosus (Culturelle*) 1 cap PO BID [facility] Last Admin: 04/08/17 08:07 Dose: 1 cap Metronidazole (Flagyl Tab*) 500 mg PO BID [facility] Last Admin: 04/08/17 08:07 Dose: 500 mg Nystatin (Nystatin Cream*) 1 applic TOPICAL BID [facility] Last Admin: 04/08/17 08:32 Dose: 1 applic Omeprazole (Prilosec Cap*) 40 mg PO DAILY@0600 [facility] Last Admin: 04/08/17 06:02 Dose: 40 mg Ondansetron HCl (Zofran Odt Tab*) 4 mg PO Q8H PRN PRN Reason: NAUSEA/VOMITING Oxycodone HCl (Oxycodone Oral.Soln*) 10 mg PO DAILY PRN PRN Reason: PAIN Oxycodone HCl (Oxycodone Oral.Soln*) 10 mg PO AC [facility] Last Admin: 04/08/17 11:52 Dose: 10 mg Oxycodone HCl (Roxycodone Tab*) 5 mg PO Q4H PRN PRN Reason: PAIN Pharmacy Profile Note (Fentanyl Patch Check Q Shift) 1 note N/A 0700,1900 [facility] Last Admin: 04/08/17 07:04 Dose: 1 note Potassium Chloride (Klor Con Er Tab*) 10 meq PO DAILY [facility] Last Admin: 04/08/17 08:08 Dose: 10 meq Pregabalin (Lyrica Cap(*)) 150 mg PO TID [facility] Last Admin: 04/08/17 14:07 Dose: 150 mg Zinc Sulfate (Zinc-220 Cap*) 220 mg PO DAILY [facility] Last Admin: 04/08/17 08:09 Dose: 220 mg Vital Signs 04/07/17 04/07/17 04/07/17 15:29 17:07 17:13 Temperature 98.6 F Pulse Rate 82 Respiratory 12 16 18 Rate Blood Pressure 137/65 (mmHg) O2 Sat by Pulse 97 Oximetry 04/07/17 04/07/17 04/07/17 19:07 19:13 19:36 Temperature 98.0 F Pulse Rate 80 Respiratory 17 17 18 Rate Blood Pressure 156/66 (mmHg) O2 Sat by Pulse 96 Oximetry 04/07/17 04/07/17 04/07/17 20:00 21:01 22:09 Temperature Pulse Rate Respiratory 17 17 17 Rate Blood Pressure (mmHg) O2 Sat by Pulse Oximetry 04/07/17 04/08/17 04/08/17 23:01 00:09 00:26 Temperature 98.7 F Pulse Rate 77 Respiratory 16 16 16 Rate Blood Pressure 118/64 (mmHg) O2 Sat by Pulse 98 Oximetry 04/08/17 04/08/17 04/08/17 04:46 07:59 08:00 Temperature 97.9 F 98.8 F Pulse Rate 72 72 Respiratory 17 16 16 Rate Blood Pressure 143/67 147/73 (mmHg) O2 Sat by Pulse 96 98 Oximetry 04/08/17 04/08/17 04/08/17 08:03 08:08 08:10 Temperature Pulse Rate Respiratory 16 16 16 Rate Blood Pressure (mmHg) O2 Sat by Pulse Oximetry 04/08/17 04/08/17 04/08/17 10:03 11:24 11:52 Temperature 98.5 F Pulse Rate 81 Respiratory 16 16 16 Rate Blood Pressure 158/65 (mmHg) O2 Sat by Pulse 96 Oximetry 04/08/17 04/08/17 04/08/17 12:59 13:52 14:07 Temperature Pulse Rate Respiratory 16 16 16 Rate Blood Pressure (mmHg) O2 Sat by Pulse Oximetry Oxygen Devices in Use Now: None Appearance: Patient is a 71yo male who appears stated age laying confortably in the bed in [facility]. Eyes: No Scleral Icterus, PERRLA Ears/Nose/Mouth/Throat: NL Teeth, Lips, Gums, Clear Oropharnyx, Mucous Membranes Moist Neck: NL Appearance and Movements; NL JVP Respiratory: Symmetrical Chest Expansion and Respiratory Effort, Clear to Auscultation Cardiovascular: NL Sounds; No Murmurs; No JVD, RRR, No Edema Abdominal: NL Sounds; No Tenderness; No Distention, No Hepatosplenomegaly Lymphatic: No Cervical Adenopathy Extremities: No Edema, No Clubbing, Cyanosis, - - CDI bandage on lower back. Neurological: Alert and Oriented x 3, - - paralyzed and insensate from waist down. Result Diagrams: 04/07/17 06:15 04/07/17 06:15 Additional Lab and Data: Laboratory Results - last 24 hr 04/05/17 04/05/17 06:00 06:00 WBC 7.9 RBC 3.60 L Hgb 10.1 L Hct 30 L MCV 83 MCH 28 MCHC 34 RDW 20 H Plt Count 174 MPV 8 Neut % (Auto) 46.3 Lymph % (Auto) 34.0 [place] % (Auto) 14.0 H Eos % (Auto) 4.2 Baso % (Auto) 1.5 Absolute Neuts (auto) 3.6 Absolute Lymphs (auto) 2.7 Absolute Monos (auto) 1.1 H Absolute Eos (auto) 0.3 Absolute Basos (auto) 0.1 Absolute Nucleated RBC 0 Nucleated RBC % 0.1 Sodium 140 Potassium 4.0 Chloride 105 Carbon Dioxide 32 Anion Gap 3 BUN 37 H Creatinine 1.38 H Est GFR ( Amer) 65.3 Est GFR (Non-Af Amer) 50.8 BUN/Creatinine Ratio 26.8 H Glucose 98 Calcium 9.6 Assess/Plan/Problems-Billing . Assessment: 71 yo man with extreme pain and paraplegia chronically secondary to Ependymoma. P/w large Stage IV sacral decubitus ulcer which has been debrided multiple times. Failed wound vac in PMRU and back inpatient. Plastic surgery consultation at [facility] for possible flap. - Patient Problems (1) Acute osteomyelitis of sacrum Current Visit: Yes Status: Acute Code(s): M46.28 - OSTEOMYELITIS OF VERTEBRA , SACRAL AND SACROCOCCYGEAL REGION SNOMED Code(s): 471099260 Comment: Continue Ceftriaxone and flagyl at current doses per ID. no signs of systemic or local infection (2) Chronic indwelling Fischer catheter Current Visit: Yes Status: Chronic Priority: High Code(s): Z92.89 - PERSONAL HISTORY OF OTHER MEDICAL TREATMENT SNOMED Code(s): 376055803 Comment: High risk of UTI - currently on ABX, no current evidence of UTI. (3) Neurogenic bladder Current Visit: Yes Status: Chronic Priority: High Code(s): N31.9 - NEUROMUSCULAR DYSFUNCTION OF BLADDER, UNSPECIFIED SNOMED Code(s): 311989348 Comment: Indwelling urinary catheter, no sign of current UTI. (4) Neurogenic bowel Current Visit: Yes Status: Chronic Priority: High Code(s): K59.2 - NEUROGENIC BOWEL, NOT ELSEWHERE CLASSIFIED SNOMED Code(s): 238385187 Comment: loose bowel movements with repositioning. Frequent pericare to prevent skin breakdown. Flagyl to help with diarrhea. Lomotil after loose bowel movements. (5) Sacral decubitus ulcer, stage IV Current Visit: Yes Status: Chronic Priority: High Code(s): L89.154 - PRESSURE ULCER OF SACRAL REGION, STAGE 4 SNOMED Code(s): 128075746 Comment: Plastic surgery consultation to [facility] (Yassine Blankenship MD) Continuing wound care, debrided 04/[address] Harmon, continue Santyl treatment. Continue wet to dry dressings. Appreciate input from surgery. Appreciate nutrition recommendations to support healing, attempt for 6 small protein rich meals daily and continue vitamins. Vitamin C started per nutrition and . (6) DVT prophylaxis Current Visit: No Status: Acute Code(s): WJO2685 - SNOMED Code(s): 968375361 Comment: Lovenox TEDs in bed. (7) Diarrhea Current Visit: No Status: Acute Code(s): R19.7 - DIARRHEA, UNSPECIFIED SNOMED Code(s): 37821722 Comment: BMs more formed per patient. Diarrhea Likely ABX associated. ID thinks not Cdiff. Continue Flagyl, Probiotic, and Lomotil (8) Chronic back pain Current Visit: No Status: Chronic Code(s): M54.9 - DORSALGIA, UNSPECIFIED; G89.29 - OTHER CHRONIC PAIN SNOMED Code(s): 139363488 Comment: Secondary to ependymoma and sacral decub Continue pregabalin, and acetaminophen. oxycodone liquid to 10mg AC with one dose PRN for transfer. Fentanyl patch to 75mcg. Pain better controlled with sitting (9) MATY (obstructive sleep apnea) Current Visit: No Status: Chronic Code(s): G47.33 - OBSTRUCTIVE SLEEP APNEA (ADULT) (PEDIATRIC) SNOMED Code(s): 12522688 Comment: Continue home BiPAP use. (10) Paraplegia Current Visit: No Status: Chronic Code(s): G82.20 - PARAPLEGIA, UNSPECIFIED SNOMED Code(s): 88698828 Comment: Secondary to ependymoma Cont with skin precautions - frequent turning, skin care. Cont pain management Plan for spinal stimulator implantation with Dr. Staton ([place]) eventually (11) Full code status Current Visit: No Status: Acute Code(s): Z78.9 - OTHER SPECIFIED HEALTH STATUS SNOMED Code(s): 552424811 Status and Disposition: f/u plastic surgery consult. Plan is to return home vs potential transfer for plastic surgery flap surgery in [place].
[2017-04-08] MEDS: Enoxaparin(*) 40 MG/0.4 ML SYR SUBCUT SCH (18:19)
[2017-04-09] MEDS: Omeprazole CAP* 20 MG PO SCH (06:09)
[2017-04-09] MEDS: fentaNYL Patch Check Q Shift 1 NOTE SCH ×2 (07:03→19:09)
[2017-04-09] MEDS: oxyCODONE ORAL.SOLN* 5 MG/5 ML UDC PO SCH ×3 (07:25→16:56)
[2017-04-09] MEDS: Lactobacillus Acidophilu (GG)* 1 CAP CAP PO SCH ×2 (09:01→21:28)
[2017-04-09] MEDS: Aspirin EC Low Dose* 81 MG TAB.EC PO SCH (09:01)
[2017-04-09] MEDS: Ascorbic Acid TAB* 500 MG PO SCH (09:01)
[2017-04-09] MEDS: Cyanocobalamin TAB* 500 MCG PO SCH (09:01)
[2017-04-09] MEDS: metroNIDAZOLE TAB* 250 MG PO SCH ×2 (09:01→21:29)
[2017-04-09] MEDS: Furosemide TAB* 40 MG PO SCH (09:01)
[2017-04-09] MEDS: Potassium Chlor TAB* 10 MEQ TAB.ER PO SCH (09:02)
[2017-04-09] MEDS: Diphenoxylat/Atrop 2.5-0.025M* 1 TAB PO SCH ×4 (09:02→21:27)
[2017-04-09] MEDS: Zinc Sulfate CAP* 220 MG PO SCH (09:02)
[2017-04-09] MEDS: Ferrous Gluconate TAB* 324 MG TAB PO SCH ×2 (09:02→21:29)
[2017-04-09] MEDS: Pregabalin CAP(*) 50 MG PO SCH ×3 (09:03→21:29)
[2017-04-09] MEDS: Folic Acid TAB* 1 MG PO SCH (09:03)
[2017-04-09] MEDS: Cholecalciferol TAB* 1000 UNITS PO SCH (09:03)
[2017-04-09] MEDS: CLOBETASOL 0.05% TOPICAL SCH (10:42)
[2017-04-09] MEDS: ECONAZOLE 1% TOPICAL SCH ×2 (10:54→17:00)
[2017-04-09] MEDS: Collagenase 250 MG/GM OINT* 30 GM TOPICAL SCH (10:54)
[2017-04-09] MEDS: HYDROCORTISONE 2.5% TOPICAL SCH ×3 (10:54→21:34)
[2017-04-09] MEDS: Nystatin CREAM* 15 GM TUBE TOPICAL SCH ×2 (10:55→21:42)
--- NOTE | 2017-04-09 14:54 | PN ---
Subjective Date of Service: 04/09/17 Interval History: Patient has no acute complaints. Patient's pain is consistent with previous days with no sedation. Patient's wound is healing well and the process of consulting with the plastic surgeon in [place] is ongoing through Dr. Pacheco. Family History: Unchanged from Admission Social History: Unchanged from Admission - no changes noted Past Medical History: Unchanged from Admission Objective Active Medications: Acetaminophen (Tylenol Tab*) 650 mg PO Q6H PRN PRN Reason: FEVER/PAIN Ascorbic Acid (Vitamin C Tab*) 500 mg PO DAILY [facility] Last Admin: 04/09/17 09:01 Dose: 500 mg Aspirin (Aspirin Ec Low Dose*) 81 mg PO DAILY [facility] Last Admin: 04/09/17 09:01 Dose: 81 mg Bisacodyl (Dulcolax Supp*) [address] DAILY PRN PRN Reason: CONSTIPATION Cholecalciferol (Vitamin D Tab*) 5,000 units PO DAILY [facility] Last Admin: 04/09/17 09:03 Dose: 5,000 units Clobetasol Propionate (Clobetasol 0.05% Oint*) 1 applic TOPICAL DAILY [facility] Last Admin: 04/09/17 10:42 Dose: 1 applic Collagenase (Santyl 250 Mg/Gm Oint*) 1 applic TOPICAL .SEE INSTRUCTIONS [facility] Last Admin: 04/09/17 10:54 Dose: 1 applic Cyanocobalamin (Vitamin B12 Tab*) 1,000 mcg PO DAILY [facility] Last Admin: 04/09/17 09:01 Dose: 1,000 mcg Diphenoxylate HCl/Atropine (Lomotil Tab*) 1 tab PO QID [facility] Last Admin: 04/09/17 13:44 Dose: 1 tab Docusate Sodium (Colace Cap*) 100 mg PO BID PRN PRN Reason: CONSTIPATION Econazole Nitrate (Econazole 1 % Cream (Nf)) 1 applic TOPICAL DAILY@1700 [facility] Enoxaparin Sodium (Lovenox(*)) 40 mg SUBCUT Q24H [facility] Last Admin: 04/08/17 18:19 Dose: 40 mg Fentanyl (Duragesic Patch 75 Mcg/Hr*) 75 mcg TRANSDERM Q72H [facility] Last Admin: 04/06/17 18:24 Dose: 75 mcg Ferrous Gluconate (Fergon Tab*) 324 mg PO BID [facility] Last Admin: 04/09/17 09:02 Dose: 324 mg Folic Acid (Folvite Tab*) 0.5 mg PO DAILY [facility] Last Admin: 04/09/17 09:03 Dose: 0.5 mg Furosemide (Lasix Tab*) 40 mg PO DAILY [facility] Last Admin: 04/09/17 09:01 Dose: 40 mg Heparin Sodium (Porcine) (Heparin Flush Picc/Ml/Cvc(*)) 1 ml FLUSH 0600,1800 [facility] PRN Reason: Protocol Last Admin: 04/09/17 10:11 Dose: 1 ml Hydrocortisone (Hydrocortisone 2.5% Cream(Nf)) 1 applic TOPICAL TID [facility] Last Admin: 04/09/17 13:44 Dose: 1 applic Ceftriaxone Sodium 2 gm/ (Sodium Chloride) 100 mls @ 200 mls/hr IVPB DAILY [facility] Last Admin: 04/09/17 09:04 Dose: 200 mls/hr Lactobacillus Rhamnosus (Culturelle*) 1 cap PO BID [facility] Last Admin: 04/09/17 09:01 Dose: 1 cap Metronidazole (Flagyl Tab*) 500 mg PO BID [facility] Last Admin: 04/09/17 09:01 Dose: 500 mg Nystatin (Nystatin Cream*) 1 applic TOPICAL BID [facility] Last Admin: 04/09/17 10:55 Dose: 1 applic Omeprazole (Prilosec Cap*) 40 mg PO DAILY@0600 [facility] Last Admin: 04/09/17 06:09 Dose: 40 mg Ondansetron HCl (Zofran Odt Tab*) 4 mg PO Q8H PRN PRN Reason: NAUSEA/VOMITING Oxycodone HCl (Oxycodone Oral.Soln*) 10 mg PO DAILY PRN PRN Reason: PAIN Oxycodone HCl (Oxycodone Oral.Soln*) 10 mg PO AC [facility] Last Admin: 04/09/17 12:01 Dose: 10 mg Oxycodone HCl (Roxycodone Tab*) 5 mg PO Q4H PRN PRN Reason: PAIN Pharmacy Profile Note (Fentanyl Patch Check Q Shift) 1 note N/A 0700,1900 [facility] Last Admin: 04/09/17 07:03 Dose: 1 note Potassium Chloride (Klor Con Er Tab*) 10 meq PO DAILY [facility] Last Admin: 04/09/17 09:02 Dose: 10 meq Pregabalin (Lyrica Cap(*)) 150 mg PO TID [facility] Last Admin: 04/09/17 13:44 Dose: 150 mg Zinc Sulfate (Zinc-220 Cap*) 220 mg PO DAILY [facility] Last Admin: 04/09/17 09:02 Dose: 220 mg Vital Signs 04/08/17 04/08/17 04/08/17 14:52 15:37 16:07 Temperature 98.6 F Pulse Rate 85 Respiratory 16 16 16 Rate Blood Pressure 151/57 (mmHg) O2 Sat by Pulse 96 Oximetry 04/08/17 04/08/17 04/08/17 16:38 16:40 18:38 Temperature Pulse Rate Respiratory 16 16 16 Rate Blood Pressure (mmHg) O2 Sat by Pulse Oximetry 04/08/17 04/08/17 04/08/17 20:00 20:56 21:36 Temperature 98.6 F Pulse Rate 82 Respiratory 16 16 16 Rate Blood Pressure 148/65 (mmHg) O2 Sat by Pulse 95 Oximetry 04/08/17 04/09/17 04/09/17 22:56 00:12 04:08 Temperature 99.0 F 97.9 F Pulse Rate 77 71 Respiratory 16 16 16 Rate Blood Pressure 166/79 133/59 (mmHg) O2 Sat by Pulse 94 95 Oximetry 04/09/17 04/09/17 04/09/17 07:25 07:43 08:10 Temperature 98.0 F Pulse Rate 70 Respiratory 16 16 16 Rate Blood Pressure 149/70 (mmHg) O2 Sat by Pulse 98 Oximetry 04/09/17 04/09/17 04/09/17 09:02 09:03 09:25 Temperature Pulse Rate Respiratory 18 18 18 Rate Blood Pressure (mmHg) O2 Sat by Pulse Oximetry 04/09/17 04/09/17 04/09/17 11:02 11:03 12:01 Temperature Pulse Rate Respiratory 18 18 18 Rate Blood Pressure (mmHg) O2 Sat by Pulse Oximetry 04/09/17 04/09/17 13:44 14:01 Temperature Pulse Rate Respiratory 18 18 Rate Blood Pressure (mmHg) O2 Sat by Pulse Oximetry Oxygen Devices in Use Now: None Appearance: Patient is a 71yo male who appears stated age sitting comfortably in bed in [facility]. Eyes: No Scleral Icterus, PERRLA Ears/Nose/Mouth/Throat: NL Teeth, Lips, Gums, Clear Oropharnyx, Mucous Membranes Moist Neck: NL Appearance and Movements; NL JVP, Trachea Midline Respiratory: Symmetrical Chest Expansion and Respiratory Effort, Clear to Auscultation Cardiovascular: NL Sounds; No Murmurs; No JVD, RRR, No Edema Abdominal: No Hepatosplenomegaly, - - Normal sounds, nontender, slightly distended with no interval change from previous examinations. Lymphatic: No Cervical Adenopathy Extremities: No Edema Skin: - - Intertriginous redness in groin. Scaly annular ulcers on left hip. Neurological: Alert and Oriented x 3, - - Paralyzed and insensate from waist down. CN II-XII intact. No other weakness. Result Diagrams: 04/07/17 06:15 04/07/17 06:15 Additional Lab and Data: Laboratory Results - last 24 hr 04/05/17 04/05/17 06:00 06:00 WBC 7.9 RBC 3.60 L Hgb 10.1 L Hct 30 L MCV 83 MCH 28 MCHC 34 RDW 20 H Plt Count 174 MPV 8 Neut % (Auto) 46.3 Lymph % (Auto) 34.0 [place] % (Auto) 14.0 H Eos % (Auto) 4.2 Baso % (Auto) 1.5 Absolute Neuts (auto) 3.6 Absolute Lymphs (auto) 2.7 Absolute Monos (auto) 1.1 H Absolute Eos (auto) 0.3 Absolute Basos (auto) 0.1 Absolute Nucleated RBC 0 Nucleated RBC % 0.1 Sodium 140 Potassium 4.0 Chloride 105 Carbon Dioxide 32 Anion Gap 3 BUN 37 H Creatinine 1.38 H Est GFR ( Amer) 65.3 Est GFR (Non-Af Amer) 50.8 BUN/Creatinine Ratio 26.8 H Glucose 98 Calcium 9.6 Assess/Plan/Problems-Billing . Assessment: 71 yo man with extreme pain and paraplegia chronically secondary to Ependymoma. P/w large Stage IV sacral decubitus ulcer which has been debrided multiple times. Failed wound vac in PMRU and back inpatient. Plastic surgery consultation at [facility] for possible flap. - Patient Problems (1) Acute osteomyelitis of sacrum Current Visit: Yes Status: Acute Code(s): M46.28 - OSTEOMYELITIS OF VERTEBRA , SACRAL AND SACROCOCCYGEAL REGION SNOMED Code(s): 575762226 Comment: Continue Ceftriaxone and flagyl at current doses per ID. no signs of systemic or local infection (2) Chronic indwelling Fischer catheter Current Visit: Yes Status: Chronic Priority: High Code(s): Z92.89 - PERSONAL HISTORY OF OTHER MEDICAL TREATMENT SNOMED Code(s): 271604639 Comment: High risk of UTI - currently on ABX, no current evidence of UTI. (3) Neurogenic bladder Current Visit: Yes Status: Chronic Priority: High Code(s): N31.9 - NEUROMUSCULAR DYSFUNCTION OF BLADDER, UNSPECIFIED SNOMED Code(s): 413118496 Comment: Indwelling urinary catheter, no sign of current UTI. (4) Neurogenic bowel Current Visit: Yes Status: Chronic Priority: High Code(s): K59.2 - NEUROGENIC BOWEL, NOT ELSEWHERE CLASSIFIED SNOMED Code(s): 739922828 Comment: loose bowel movements with repositioning. Frequent pericare to prevent skin breakdown. Flagyl to help with diarrhea. Lomotil after loose bowel movements. Patient states that he feels the diarrhea is slowing down, but this is not the impression of the nursing staff. (5) Sacral decubitus ulcer, stage IV Current Visit: Yes Status: Chronic Priority: High Code(s): L89.154 - PRESSURE ULCER OF SACRAL REGION, STAGE 4 SNOMED Code(s): 324464658 Comment: Plastic surgery consultation to [facility] (Yassine Blankenship MD) Continuing wound care, debrided 04/[address] Harmon, continue Santyl treatment. Continue wet to dry dressings. Appreciate input from surgery. Appreciate nutrition recommendations to support healing, attempt for 6 small protein rich meals daily and continue vitamins. Vitamin C started per nutrition and . (6) DVT prophylaxis Current Visit: No Status: Acute Code(s): MXI1737 - SNOMED Code(s): 112746365 Comment: Lovenox TEDs in bed. (7) Diarrhea Current Visit: No Status: Acute Code(s): R19.7 - DIARRHEA, UNSPECIFIED SNOMED Code(s): 36295527 Comment: BMs more formed per patient. Diarrhea Likely ABX associated. ID thinks not Cdiff. Continue Flagyl, Probiotic, and Lomotil (8) Chronic back pain Current Visit: No Status: Chronic Code(s): M54.9 - DORSALGIA, UNSPECIFIED; G89.29 - OTHER CHRONIC PAIN SNOMED Code(s): 647661355 Comment: Secondary to ependymoma and sacral decub Continue pregabalin, and acetaminophen. oxycodone liquid to 10mg AC with one dose PRN for transfer. Fentanyl patch to 75mcg. Pain better controlled with sitting (9) MATY (obstructive sleep apnea) Current Visit: No Status: Chronic Code(s): G47.33 - OBSTRUCTIVE SLEEP APNEA (ADULT) (PEDIATRIC) SNOMED Code(s): 63623640 Comment: Continue home BiPAP use. (10) Paraplegia Current Visit: No Status: Chronic Code(s): G82.20 - PARAPLEGIA, UNSPECIFIED SNOMED Code(s): 48549589 Comment: Secondary to ependymoma Cont with skin precautions - frequent turning, skin care. Cont pain management Plan for spinal stimulator implantation with Dr. Staton ([place]) eventually (11) Full code status Current Visit: No Status: Acute Code(s): Z78.9 - OTHER SPECIFIED HEALTH STATUS SNOMED Code(s): 753478683 (12) Tinea corporis Current Visit: Yes Status: Acute Code(s): B35.4 - TINEA CORPORIS SNOMED Code(s): 11624638 Comment: Annular scaly lesion on hip spreading consistent with tinea corporis. Nystatin cream not effective against lesion. Will trial patient's home antifungal cream. Status and Disposition: f/u plastic surgery consult. Plan is to return home vs potential transfer for plastic surgery flap surgery in [place].
[2017-04-09] MEDS: fentaNYL PATCH 75 MCG/HR* 75 MCG TRANSDERM SCH (17:28)
[2017-04-09] MEDS: Enoxaparin(*) 40 MG/0.4 ML SYR SUBCUT SCH (17:31)
[2017-04-10] MEDS: Omeprazole CAP* 20 MG PO SCH (05:25)
[2017-04-10] MEDS: fentaNYL Patch Check Q Shift 1 NOTE SCH ×2 (07:17→18:37)
[2017-04-10] MEDS: oxyCODONE ORAL.SOLN* 5 MG/5 ML UDC PO SCH ×3 (08:08→17:15)
[2017-04-10] MEDS: Ascorbic Acid TAB* 500 MG PO SCH (08:12)
[2017-04-10] MEDS: Ferrous Gluconate TAB* 324 MG TAB PO SCH ×2 (08:12→22:39)
[2017-04-10] MEDS: Cholecalciferol TAB* 1000 UNITS PO SCH (08:12)
[2017-04-10] MEDS: Folic Acid TAB* 1 MG PO SCH (08:13)
[2017-04-10] MEDS: metroNIDAZOLE TAB* 250 MG PO SCH ×2 (08:13→22:38)
[2017-04-10] MEDS: Aspirin EC Low Dose* 81 MG TAB.EC PO SCH (08:13)
[2017-04-10] MEDS: Lactobacillus Acidophilu (GG)* 1 CAP CAP PO SCH ×2 (08:13→22:39)
[2017-04-10] MEDS: Diphenoxylat/Atrop 2.5-0.025M* 1 TAB PO SCH ×4 (08:13→22:39)
[2017-04-10] MEDS: Cyanocobalamin TAB* 500 MCG PO SCH (08:13)
[2017-04-10] MEDS: Pregabalin CAP(*) 50 MG PO SCH ×3 (08:14→22:38)
[2017-04-10] MEDS: Furosemide TAB* 40 MG PO SCH (08:14)
[2017-04-10] MEDS: Potassium Chlor TAB* 10 MEQ TAB.ER PO SCH (08:15)
[2017-04-10] MEDS: Zinc Sulfate CAP* 220 MG PO SCH (08:15)
[2017-04-10] MEDS: CLOBETASOL 0.05% TOPICAL SCH (10:22)
[2017-04-10] MEDS: HYDROCORTISONE 2.5% TOPICAL SCH ×3 (10:45→22:46)
[2017-04-10] MEDS: Nystatin CREAM* 15 GM TUBE TOPICAL SCH ×2 (10:46→22:54)
--- NOTE | 2017-04-10 14:15 | PN ---
Subjective Date of Service: 04/10/17 Interval History: This is a 71 yo paraplegic gentleman with a prolonged hospital stay for treatment of a large sacral decubitus ulcer complicated by sacral osteomyelitis. s/p debridement by Dr Hramon 04/06. Pending plastics consultation at [facility] for possible skin flap. Patient offers no new complaints today. His pain is adequately controlled. He has started to take his meals outside his room which he seems to appreciate. Recent wound pictures reviewed with his . Objective Active Medications: Acetaminophen (Tylenol Tab*) 650 mg PO Q6H PRN PRN Reason: FEVER/PAIN Ascorbic Acid (Vitamin C Tab*) 500 mg PO DAILY [facility] Last Admin: 04/10/17 08:12 Dose: 500 mg Aspirin (Aspirin Ec Low Dose*) 81 mg PO DAILY [facility] Last Admin: 04/10/17 08:13 Dose: 81 mg Bisacodyl (Dulcolax Supp*) 10 mg NC DAILY PRN PRN Reason: CONSTIPATION Cholecalciferol (Vitamin D Tab*) 5,000 units PO DAILY [facility] Last Admin: 04/10/17 08:12 Dose: 5,000 units Clobetasol Propionate (Clobetasol 0.05% Oint*) 1 applic TOPICAL DAILY [facility] Last Admin: 04/10/17 10:22 Dose: 1 applic Collagenase (Santyl 250 Mg/Gm Oint*) 1 applic TOPICAL .SEE INSTRUCTIONS [facility] Last Admin: 04/09/17 10:54 Dose: 1 applic Cyanocobalamin (Vitamin B12 Tab*) 1,000 mcg PO DAILY [facility] Last Admin: 04/10/17 08:13 Dose: 1,000 mcg Diphenoxylate HCl/Atropine (Lomotil Tab*) 1 tab PO QID [facility] Last Admin: 04/10/17 08:13 Dose: 1 tab Docusate Sodium (Colace Cap*) 100 mg PO BID PRN PRN Reason: CONSTIPATION Econazole Nitrate (Econazole 1 % Cream (Nf)) 1 applic TOPICAL DAILY@1700 [facility] Last Admin: 04/09/17 17:00 Dose: 1 applic Enoxaparin Sodium (Lovenox(*)) 40 mg SUBCUT Q24H [facility] Last Admin: 04/09/17 17:31 Dose: 40 mg Fentanyl (Duragesic Patch 75 Mcg/Hr*) 75 mcg TRANSDERM Q72H [facility] Last Admin: 04/09/17 17:28 Dose: 75 mcg Ferrous Gluconate (Fergon Tab*) 324 mg PO BID [facility] Last Admin: 04/10/17 08:12 Dose: 324 mg Folic Acid (Folvite Tab*) 0.5 mg PO DAILY [facility] Last Admin: 04/10/17 08:13 Dose: 0.5 mg Furosemide (Lasix Tab*) 40 mg PO DAILY [facility] Last Admin: 04/10/17 08:14 Dose: 40 mg Heparin Sodium (Porcine) (Heparin Flush Picc/Ml/Cvc(*)) 1 ml FLUSH 0600,1800 [facility] PRN Reason: Protocol Last Admin: 04/10/17 10:22 Dose: 1 ml Hydrocortisone (Hydrocortisone 2.5% Cream(Nf)) 1 applic TOPICAL TID [facility] Last Admin: 04/10/17 10:45 Dose: 1 applic Ceftriaxone Sodium 2 gm/ (Sodium Chloride) 100 mls @ 200 mls/hr IVPB DAILY [facility] Last Admin: 04/10/17 08:24 Dose: 200 mls/hr Lactobacillus Rhamnosus (Culturelle*) 1 cap PO BID [facility] Last Admin: 04/10/17 08:13 Dose: 1 cap Metronidazole (Flagyl Tab*) 500 mg PO BID [facility] Last Admin: 04/10/17 08:13 Dose: 500 mg Nystatin (Nystatin Cream*) 1 applic TOPICAL BID [facility] Last Admin: 04/10/17 10:46 Dose: 1 applic Omeprazole (Prilosec Cap*) 40 mg PO DAILY@0600 [facility] Last Admin: 04/10/17 05:25 Dose: 40 mg Ondansetron HCl (Zofran Odt Tab*) 4 mg PO Q8H PRN PRN Reason: NAUSEA/VOMITING Oxycodone HCl (Oxycodone Oral.Soln*) 10 mg PO DAILY PRN PRN Reason: PAIN Oxycodone HCl (Oxycodone Oral.Soln*) 10 mg PO AC [facility] Last Admin: 04/10/17 11:26 Dose: 10 mg Oxycodone HCl (Roxycodone Tab*) 5 mg PO Q4H PRN PRN Reason: PAIN Pharmacy Profile Note (Fentanyl Patch Check Q Shift) 1 note N/A 0700,1900 [facility] Last Admin: 04/10/17 07:17 Dose: 1 note Potassium Chloride (Klor Con Er Tab*) 10 meq PO DAILY [facility] Last Admin: 04/10/17 08:15 Dose: 10 meq Pregabalin (Lyrica Cap(*)) 150 mg PO TID [facility] Last Admin: 04/10/17 08:14 Dose: 150 mg Zinc Sulfate (Zinc-220 Cap*) 220 mg PO DAILY [facility] Last Admin: 04/10/17 08:15 Dose: 220 mg Vital Signs: Temp Pulse Resp BP Pulse Ox 98.5 F 79 16 145/71 95 04/10/17 03:16 04/10/17 03:16 04/10/17 11:26 04/10/17 03:16 04/10/17 03:16 Oxygen Devices in Use Now: None Appearance: Well appearing elderly gentleman in [facility]. Accompanied by his and other family members Respiratory: Symmetrical Chest Expansion and Respiratory Effort, Clear to Auscultation Cardiovascular: NL Sounds; No Murmurs; No JVD, RRR Abdominal: NL Sounds; No Tenderness; No Distention Extremities: No Edema Skin: - - wound pictures reviewed, but not directly visualized Neurological: Alert and Oriented x 3 Result Diagrams: 04/07/17 06:15 04/07/17 06:15 Additional Lab and Data: . Assess/Plan/Problems-Billing . Assessment: 71 yo man with extreme pain and paraplegia chronically secondary to Ependymoma. P/w large Stage IV sacral decubitus ulcer which has been debrided multiple times. Failed wound vac in PMRU and back inpatient. Plastic surgery consultation at [facility] for possible flap. - Patient Problems (1) Acute osteomyelitis of sacrum Comment: Continue Ceftriaxone and flagyl at current doses per ID. No evidence of new sepsis (2) Sacral decubitus ulcer, stage IV Comment: Plastic surgery consultation to [facility] (Yassine Blankenship MD) Continuing wound care, debrided 04/[address] Harmon, continue Santyl treatment. Continue wet to dry dressings. Appreciate input from surgery. Patient's had a question about using Medihoney as opposed to Santyl, deferred to surgery to answer Appreciate nutrition recommendations to support healing, attempt for 6 small protein rich meals daily and continue vitamins. Vitamin C started per nutrition and . (3) Neurogenic bladder Comment: With chronic indwelling urinary catheter (4) Neurogenic bowel Comment: loose bowel movements with repositioning. Frequent pericare to prevent skin breakdown. Flagyl and prn lomotil for diarrhea Patient states that he feels the diarrhea is slowing down (5) CKD (chronic kidney disease), stage III Comment: Cr near baseline, no acute exacerbation (6) Chronic back pain Comment: Secondary to ependymoma and sacral decub Continue pregabalin, and acetaminophen. oxycodone liquid to 10mg AC with one dose PRN for transfer. Fentanyl patch to 75mcg. Pain better controlled with sitting (7) HTN (hypertension) Comment: Normotensive, cont home anthypertensive medications (8) MATY (obstructive sleep apnea) Comment: Continue home BiPAP use. (9) Paraplegia Comment: Secondary to ependymoma (10) DVT prophylaxis Comment: Lovenox TEDs in bed. (11) Full code status Status and Disposition: Inpatient. Pending plastic surgery consult
[2017-04-10] MEDS: Enoxaparin(*) 40 MG/0.4 ML SYR SUBCUT SCH (17:16)
[2017-04-10] MEDS: ECONAZOLE 1% TOPICAL SCH (17:24)
[2017-04-11] MEDS: Omeprazole CAP* 20 MG PO SCH (06:10)
[2017-04-11 06:48] LABS: Hematocrit 32 % (42-52); Hemoglobin 10.5 g/dl (14.0-18.0); Mean Corpuscular HGB Conc 33 g/dl (31-36); Mean Corpuscular Hemoglobin 28 pg (27-31); Mean Corpuscular Volume 84 fL (80-94); Mean Platelet Volume 8 um3 (7.4-10.4); Red Blood Count 3.76 10^6/ul (4.0-5.4); Red Cell Distribution Width 20 % (10.5-15); White Blood Count 7.7 10^3/ul (3.5-10.8)
[2017-04-11] MEDS: fentaNYL Patch Check Q Shift 1 NOTE SCH ×2 (06:56→18:58)
[2017-04-11 06:59] LABS: BUN/Creatinine Ratio 32.5 (8-20); Calcium 9.6 mg/dL (8.6-10.3); EGFR African American 74.6 (>60)
[2017-04-11] MEDS: oxyCODONE ORAL.SOLN* 5 MG/5 ML UDC PO SCH ×3 (07:45→17:09)
[2017-04-11 08:13] LABS: C Reactive Protein 16.66 mg/L (< 5.00)
[2017-04-11] MEDS: Cholecalciferol TAB* 1000 UNITS PO SCH (09:39)
[2017-04-11] MEDS: Diphenoxylat/Atrop 2.5-0.025M* 1 TAB PO SCH ×4 (09:40→20:10)
[2017-04-11] MEDS: Zinc Sulfate CAP* 220 MG PO SCH (09:40)
[2017-04-11] MEDS: Lactobacillus Acidophilu (GG)* 1 CAP CAP PO SCH ×2 (09:40→20:11)
[2017-04-11] MEDS: Ferrous Gluconate TAB* 324 MG TAB PO SCH ×2 (09:40→20:11)
[2017-04-11] MEDS: Aspirin EC Low Dose* 81 MG TAB.EC PO SCH (09:41)
[2017-04-11] MEDS: Pregabalin CAP(*) 50 MG PO SCH ×3 (09:41→20:11)
[2017-04-11] MEDS: metroNIDAZOLE TAB* 250 MG PO SCH ×2 (09:41→20:11)
[2017-04-11] MEDS: Cyanocobalamin TAB* 500 MCG PO SCH (09:41)
[2017-04-11] MEDS: Furosemide TAB* 40 MG PO SCH (09:41)
[2017-04-11] MEDS: Ascorbic Acid TAB* 500 MG PO SCH (09:42)
[2017-04-11] MEDS: Folic Acid TAB* 1 MG PO SCH (09:42)
[2017-04-11] MEDS: Potassium Chlor TAB* 10 MEQ TAB.ER PO SCH (09:42)
[2017-04-11] MEDS: HYDROCORTISONE 2.5% TOPICAL SCH ×3 (09:47→20:10)
[2017-04-11] MEDS: CLOBETASOL 0.05% TOPICAL SCH (09:47)
[2017-04-11] MEDS: Nystatin CREAM* 15 GM TUBE TOPICAL SCH ×2 (11:21→20:10)
--- NOTE | 2017-04-11 11:48 | PN ---
Progress Note - Progress Note Date of Service: 04/11/17 SOAP: Subjective: CC: decubitus ulcer HPI: 71 year old man with sacral decubitus ulcer, feeling better and eating. No fever, rash, or diarrhea. Appetite good. Wound care continues for sacral and calacaneal wounds. Not painful in those locations. Objective: [] Vital Signs Temp 36.7 C 04/11/17 08:12 Pulse 79 04/11/17 08:12 Resp 18 04/11/17 11:45 BP 159/80 04/11/17 08:12 Pulse Ox 100 04/11/17 08:12 Intake & Output 04/10/17 04/11/17 04/11/17 18:59 06:59 18:59 Intake Total 740 1380 Output Total 300 900 Balance 440 480 Intake: Oral 740 1380 Output: Fischer 300 900 Other: # Bowel Movements 1 Estimated Stool Amount Medium Small Gen:awake, no distress HEENT:no thrush Heart:RRR no murmur Lungs:CTA BL Abd:+BS NTND soft Skin: no rash MSK: sacral decubitus ulcer with granulation tissue; lateral fibrinous material over bone, no surrounding erythema, minimum drainage; BL medial heal 4 cm purple discoloration and eschar Assessment: 1. acute osteomyelitis, sacrum 2. 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 elevated CRP Plan: 1. continue ceftriaxone and flagyl day 28 today, had planned to change to oral antibiotics, case being reviewed by plastics in [place], if they are planning intervention, they may have a preference on IV vs PO antibiotics. Seen and discussed with Dr Harmon.
--- NOTE | 2017-04-11 11:48 | PN ---
Progress Note - Progress Note Date of Service: 04/11/17 SOAP: Subjective: Without complaint Objective: Temp Pulse Resp BP Pulse Ox 98.1 F 79 16 159/80 100 04/11/17 08:12 04/11/17 08:12 04/11/17 09:41 04/11/17 08:12 04/11/17 08:12 Intake & Output 04/09/17 04/10/17 04/11/17 04/12/17 06:59 06:59 06:59 06:59 Intake Total 1230 1810 2120 Output Total 1700 205 1200 Balance -470 -240 920 Intake: IVPB 130 ABX - CEFTRIAXONE 100 NS (0.9%) 30 Oral 1230 1680 2120 Output: Urine 750 Fischer 950 205 1200 Other: Date of Last Bowel 04/08/17 Movement # Bowel Movements 1 2 1 Estimated Stool Amount Small Medium Medium Small PEX: Comfortable Sacral decubitus ulcer is clean without odor, non-viable tissue. There is now evidence of granulation tissue present. Midline overlying the bony prominence remains with exposed fibrous tissue and a small amount of exposed bone. Ulcer debrided sharply of a small amount of slough along the [place]. Minimal bleeding controlled with pressure. Assessment: Sacral decubitus Plan: Will stop Santyl and start Medihoney to wound bed and cover with gauze packing and ABD pad. I do not think that Santyl is required anymore. Will continue close observation IV abx The ulcer is now ready for wound vac that I think would be a good option but the patient's is reluctant to use the vac at this time. Case discussed with Dr. Sexton. Patient's present in room during exam and care discussed with her.
--- NOTE | 2017-04-11 13:55 | PN ---
Subjective Date of Service: 04/11/17 Interval History: Patient offers no acute complaints. Pain control is adequate. Objective Active Medications: Acetaminophen (Tylenol Tab*) 650 mg PO Q6H PRN PRN Reason: FEVER/PAIN Ascorbic Acid (Vitamin C Tab*) 500 mg PO DAILY [facility] Last Admin: 04/11/17 09:42 Dose: 500 mg Aspirin (Aspirin Ec Low Dose*) 81 mg PO DAILY [facility] Last Admin: 04/11/17 09:41 Dose: 81 mg Bisacodyl (Dulcolax Supp*) 10 mg ND DAILY PRN PRN Reason: CONSTIPATION Cholecalciferol (Vitamin D Tab*) 5,000 units PO DAILY [facility] Last Admin: 04/11/17 09:39 Dose: 5,000 units Clobetasol Propionate (Clobetasol 0.05% Oint*) 1 applic TOPICAL DAILY [facility] Last Admin: 04/11/17 09:47 Dose: 1 applic Cyanocobalamin (Vitamin B12 Tab*) 1,000 mcg PO DAILY [facility] Last Admin: 04/11/17 09:41 Dose: 1,000 mcg Diphenoxylate HCl/Atropine (Lomotil Tab*) 1 tab PO QID [facility] Last Admin: 04/11/17 09:40 Dose: 1 tab Docusate Sodium (Colace Cap*) 100 mg PO BID PRN PRN Reason: CONSTIPATION Econazole Nitrate (Econazole 1 % Cream (Nf)) 1 applic TOPICAL DAILY@1700 [facility] Last Admin: 04/10/17 17:24 Dose: 1 applic Enoxaparin Sodium (Lovenox(*)) 40 mg SUBCUT Q24H [facility] Last Admin: 04/10/17 17:16 Dose: 40 mg Fentanyl (Duragesic Patch 75 Mcg/Hr*) 75 mcg TRANSDERM Q72H [facility] Last Admin: 04/09/17 17:28 Dose: 75 mcg Ferrous Gluconate (Fergon Tab*) 324 mg PO BID [facility] Last Admin: 04/11/17 09:40 Dose: 324 mg Folic Acid (Folvite Tab*) 0.5 mg PO DAILY [facility] Last Admin: 04/11/17 09:42 Dose: 0.5 mg Furosemide (Lasix Tab*) 40 mg PO DAILY [facility] Last Admin: 04/11/17 09:41 Dose: 40 mg Heparin Sodium (Porcine) (Heparin Flush Picc/Ml/Cvc(*)) 1 ml FLUSH 0600,1800 [facility] PRN Reason: Protocol Last Admin: 04/11/17 10:58 Dose: 1 ml Hydrocortisone (Hydrocortisone 2.5% Cream(Nf)) 1 applic TOPICAL TID [facility] Last Admin: 04/11/17 09:47 Dose: 1 applic Ceftriaxone Sodium 2 gm/ (Sodium Chloride) 100 mls @ 200 mls/hr IVPB DAILY [facility] Last Admin: 04/11/17 09:42 Dose: 200 mls/hr Lactobacillus Rhamnosus (Culturelle*) 1 cap PO BID [facility] Last Admin: 04/11/17 09:40 Dose: 1 cap Metronidazole (Flagyl Tab*) 500 mg PO BID [facility] Last Admin: 04/11/17 09:41 Dose: 500 mg Nystatin (Nystatin Cream*) 1 applic TOPICAL BID [facility] Last Admin: 04/11/17 11:21 Dose: 1 applic Omeprazole (Prilosec Cap*) 40 mg PO DAILY@0600 [facility] Last Admin: 04/11/17 06:10 Dose: 40 mg Ondansetron HCl (Zofran Odt Tab*) 4 mg PO Q8H PRN PRN Reason: NAUSEA/VOMITING Oxycodone HCl (Oxycodone Oral.Soln*) 10 mg PO AC [facility] Last Admin: 04/11/17 11:45 Dose: 10 mg Oxycodone HCl (Roxycodone Tab*) 5 mg PO Q4H PRN PRN Reason: PAIN Pharmacy Profile Note (Fentanyl Patch Check Q Shift) 1 note N/A 0700,1900 [facility] Last Admin: 04/11/17 06:56 Dose: 1 note Potassium Chloride (Klor Con Er Tab*) 10 meq PO DAILY [facility] Last Admin: 04/11/17 09:42 Dose: 10 meq Pregabalin (Lyrica Cap(*)) 150 mg PO TID [facility] Last Admin: 04/11/17 09:41 Dose: 150 mg Zinc Sulfate (Zinc-220 Cap*) 220 mg PO DAILY [facility] Last Admin: 04/11/17 09:40 Dose: 220 mg Vital Signs: Temp Pulse Resp BP Pulse Ox 98.1 F 80 16 148/67 99 04/11/17 12:03 04/11/17 12:03 04/11/17 12:03 04/11/17 12:03 04/11/17 12:03 Oxygen Devices in Use Now: None Appearance: Well appearing elderly gentleman in NAD accompanied by his Respiratory: Symmetrical Chest Expansion and Respiratory Effort, Clear to Auscultation Cardiovascular: NL Sounds; No Murmurs; No JVD, RRR Abdominal: NL Sounds; No Tenderness; No Distention Extremities: No Edema Skin: - - see surgery notes, would not directly visualized Neurological: Alert and Oriented x 3 Result Diagrams: 04/11/17 06:32 04/11/17 06:32 Additional Lab and Data: . Assess/Plan/Problems-Billing . Assessment: 71 yo man with extreme pain and paraplegia chronically secondary to Ependymoma. P/w large Stage IV sacral decubitus ulcer which has been debrided multiple times. Failed wound vac in PMRU and back inpatient. Plastic surgery consultation at [facility] for possible flap. - Patient Problems (1) Acute osteomyelitis of sacrum Comment: Continue Ceftriaxone and flagyl at current doses per ID. No evidence of new sepsis (2) Sacral decubitus ulcer, stage IV Comment: Plastic surgery consultation to [facility] (Yassine Blankenship MD) is pending Continuing wound care per surgery recommendations, debrided 04/[address] Harmon , recommend changing from Santyl to Medihoney, no residual non-viable tissue Appreciate nutrition recommendations to support healing, attempt for 6 small protein rich meals daily and continue vitamins. Vitamin C started per nutrition and . (3) Neurogenic bladder Comment: With chronic indwelling urinary catheter (4) Neurogenic bowel Comment: loose bowel movements with repositioning. Frequent pericare to prevent skin breakdown. Flagyl and prn lomotil for diarrhea Patient states that he feels the diarrhea is slowing down (5) CKD (chronic kidney disease), stage III Comment: Cr near baseline, no acute exacerbation (6) Chronic back pain Comment: Secondary to ependymoma and sacral decub Continue pregabalin, and acetaminophen. oxycodone liquid to 10mg AC with one dose PRN for transfer. Fentanyl patch to 75mcg. Pain better controlled with sitting (7) HTN (hypertension) Comment: Normotensive, cont home anthypertensive medications (8) MATY (obstructive sleep apnea) Comment: Continue home BiPAP use. (9) Paraplegia Comment: Secondary to ependymoma (10) DVT prophylaxis Comment: Lovenox TEDs in bed. (11) Full code status Status and Disposition: Inpatient. Pending plastic surgery consult
[2017-04-11] MEDS: ECONAZOLE 1% TOPICAL SCH (17:13)
[2017-04-11] MEDS: Enoxaparin(*) 40 MG/0.4 ML SYR SUBCUT SCH (18:36)
[2017-04-12] MEDS: Omeprazole CAP* 20 MG PO SCH (05:52)
[2017-04-12] MEDS: fentaNYL Patch Check Q Shift 1 NOTE SCH ×2 (07:14→19:27)
[2017-04-12] MEDS: oxyCODONE ORAL.SOLN* 5 MG/5 ML UDC PO SCH ×3 (08:04→16:51)
[2017-04-12] MEDS: HYDROCORTISONE 2.5% TOPICAL SCH ×3 (08:10→21:55)
[2017-04-12] MEDS: Nystatin CREAM* 15 GM TUBE TOPICAL SCH ×2 (08:10→21:56)
[2017-04-12] MEDS: CLOBETASOL 0.05% TOPICAL SCH (08:10)
[2017-04-12] MEDS: Folic Acid TAB* 1 MG PO SCH (09:26)
[2017-04-12] MEDS: Diphenoxylat/Atrop 2.5-0.025M* 1 TAB PO SCH ×4 (09:26→21:57)
[2017-04-12] MEDS: Cholecalciferol TAB* 1000 UNITS PO SCH (09:26)
[2017-04-12] MEDS: Furosemide TAB* 40 MG PO SCH (09:26)
[2017-04-12] MEDS: Pregabalin CAP(*) 50 MG PO SCH ×3 (09:26→21:57)
[2017-04-12] MEDS: Cyanocobalamin TAB* 500 MCG PO SCH (09:26)
[2017-04-12] MEDS: metroNIDAZOLE TAB* 250 MG PO SCH ×2 (09:27→21:56)
[2017-04-12] MEDS: Ferrous Gluconate TAB* 324 MG TAB PO SCH ×2 (09:27→21:57)
[2017-04-12] MEDS: Aspirin EC Low Dose* 81 MG TAB.EC PO SCH (09:27)
[2017-04-12] MEDS: Potassium Chlor TAB* 10 MEQ TAB.ER PO SCH (09:27)
[2017-04-12] MEDS: Ascorbic Acid TAB* 500 MG PO SCH (09:27)
[2017-04-12] MEDS: Lactobacillus Acidophilu (GG)* 1 CAP CAP PO SCH ×2 (09:29→21:57)
[2017-04-12] MEDS: Zinc Sulfate CAP* 220 MG PO SCH (09:29)
--- NOTE | 2017-04-12 15:24 | PN ---
Subjective Date of Service: 04/12/17 Interval History: Patient offers no acute complaints. Pain control is good. No nausea, SOB. Objective Active Medications: Acetaminophen (Tylenol Tab*) 650 mg PO Q6H PRN PRN Reason: FEVER/PAIN Ascorbic Acid (Vitamin C Tab*) 500 mg PO DAILY [facility] Last Admin: 04/12/17 09:27 Dose: 500 mg Aspirin (Aspirin Ec Low Dose*) 81 mg PO DAILY [facility] Last Admin: 04/12/17 09:27 Dose: 81 mg Bisacodyl (Dulcolax Supp*) 10 mg [place] DAILY PRN PRN Reason: CONSTIPATION Cholecalciferol (Vitamin D Tab*) 5,000 units PO DAILY [facility] Last Admin: 04/12/17 09:26 Dose: 5,000 units Clobetasol Propionate (Clobetasol 0.05% Oint*) 1 applic TOPICAL DAILY [facility] Last Admin: 04/12/17 08:10 Dose: 1 applic Cyanocobalamin (Vitamin B12 Tab*) 1,000 mcg PO DAILY [facility] Last Admin: 04/12/17 09:26 Dose: 1,000 mcg Diphenoxylate HCl/Atropine (Lomotil Tab*) 1 tab PO QID [facility] Last Admin: 04/12/17 14:10 Dose: 1 tab Docusate Sodium (Colace Cap*) 100 mg PO BID PRN PRN Reason: CONSTIPATION Econazole Nitrate (Econazole 1 % Cream (Nf)) 1 applic TOPICAL 2100 RADHA Enoxaparin Sodium (Lovenox(*)) 40 mg SUBCUT Q24H [facility] Last Admin: 04/11/17 18:36 Dose: 40 mg Fentanyl (Duragesic Patch 75 Mcg/Hr*) 75 mcg TRANSDERM Q72H [facility] Last Admin: 04/09/17 17:28 Dose: 75 mcg Ferrous Gluconate (Fergon Tab*) 324 mg PO BID [facility] Last Admin: 04/12/17 09:27 Dose: 324 mg Folic Acid (Folvite Tab*) 0.5 mg PO DAILY [facility] Last Admin: 04/12/17 09:26 Dose: 0.5 mg Furosemide (Lasix Tab*) 40 mg PO DAILY [facility] Last Admin: 04/12/17 09:26 Dose: 40 mg Heparin Sodium (Porcine) (Heparin Flush Picc/Ml/Cvc(*)) 1 ml FLUSH 0600,1800 [facility] PRN Reason: Protocol Last Admin: 04/12/17 11:13 Dose: 1 ml Hydrocortisone (Hydrocortisone 2.5% Cream(Nf)) 1 applic TOPICAL TID [facility] Last Admin: 04/12/17 08:10 Dose: 1 applic Ceftriaxone Sodium 2 gm/ (Sodium Chloride) 100 mls @ 200 mls/hr IVPB DAILY [facility] Last Admin: 04/12/17 09:27 Dose: 200 mls/hr Lactobacillus Rhamnosus (Culturelle*) 1 cap PO BID [facility] Last Admin: 04/12/17 09:29 Dose: 1 cap Metronidazole (Flagyl Tab*) 500 mg PO BID [facility] Last Admin: 04/12/17 09:27 Dose: 500 mg Nystatin (Nystatin Cream*) 1 applic TOPICAL BID [facility] Last Admin: 04/12/17 08:10 Dose: Not Given Omeprazole (Prilosec Cap*) 40 mg PO DAILY@0600 [facility] Last Admin: 04/12/17 05:52 Dose: 40 mg Ondansetron HCl (Zofran Odt Tab*) 4 mg PO Q8H PRN PRN Reason: NAUSEA/VOMITING Oxycodone HCl (Oxycodone Oral.Soln*) 10 mg PO AC [facility] Last Admin: 04/12/17 11:51 Dose: 10 mg Oxycodone HCl (Roxycodone Tab*) 5 mg PO Q4H PRN PRN Reason: PAIN Pharmacy Profile Note (Fentanyl Patch Check Q Shift) 1 note N/A 0700,1900 [facility] Last Admin: 04/12/17 07:14 Dose: 1 note Potassium Chloride (Klor Con Er Tab*) 10 meq PO DAILY [facility] Last Admin: 04/12/17 09:27 Dose: 10 meq Pregabalin (Lyrica Cap(*)) 150 mg PO TID [facility] Last Admin: 04/12/17 14:10 Dose: 150 mg Zinc Sulfate (Zinc-220 Cap*) 220 mg PO DAILY [facility] Last Admin: 04/12/17 09:29 Dose: 220 mg Vital Signs: Temp Pulse Resp BP Pulse Ox 98.5 F 76 16 136/69 97 04/12/17 08:03 04/12/17 08:03 04/12/17 14:10 04/12/17 08:03 04/12/17 08:03 Oxygen Devices in Use Now: None Appearance: Well appearing gentleman in NAD. Respiratory: Symmetrical Chest Expansion and Respiratory Effort, Clear to Auscultation Cardiovascular: NL Sounds; No Murmurs; No JVD, RRR Abdominal: NL Sounds; No Tenderness; No Distention Extremities: No Edema Skin: No Rash or Ulcers Neurological: Alert and Oriented x 3 Result Diagrams: 04/11/17 06:32 04/11/17 06:32 Additional Lab and Data: . Assess/Plan/Problems-Billing . Assessment: 71 yo man with extreme pain and paraplegia chronically secondary to Ependymoma. P/w large Stage IV sacral decubitus ulcer which has been debrided multiple times. Failed wound vac in PMRU and back inpatient. Plastic surgery consultation at [facility] for possible flap. - Patient Problems (1) Acute osteomyelitis of sacrum Comment: Continue Ceftriaxone and flagyl at current doses per ID. No evidence of new sepsis (2) Sacral decubitus ulcer, stage IV Comment: Plastic surgery consultation to [facility] (Yassine Blankenship MD) is pending Continuing wound care per surgery recommendations, debrided 04/[address] Harmon , recommend changing from Santyl to Medihoney, no residual non-viable tissue Appreciate nutrition recommendations to support healing, attempt for 6 small protein rich meals daily and continue vitamins. Vitamin C started per nutrition and . (3) Neurogenic bladder Comment: With chronic indwelling urinary catheter (4) Neurogenic bowel Comment: loose bowel movements with repositioning. Frequent pericare to prevent skin breakdown. Flagyl and prn lomotil for diarrhea (5) CKD (chronic kidney disease), stage III Comment: Cr near baseline, no acute exacerbation (6) Chronic back pain Comment: Secondary to ependymoma and sacral decub Continue pregabalin, and acetaminophen. oxycodone liquid to 10mg AC with one dose PRN for transfer. Fentanyl patch to 75mcg. Pain better controlled with sitting (7) HTN (hypertension) Comment: Normotensive, cont home anthypertensive medications (8) MATY (obstructive sleep apnea) Comment: Continue home BiPAP use. (9) Paraplegia Comment: Secondary to ependymoma (10) DVT prophylaxis Comment: Lovenox TEDs in bed. (11) Full code status Status and Disposition: Inpatient. Pending plastic surgery consult
[2017-04-12] MEDS: Enoxaparin(*) 40 MG/0.4 ML SYR SUBCUT SCH (16:52)
[2017-04-12] MEDS: fentaNYL PATCH 75 MCG/HR* 75 MCG TRANSDERM SCH (19:24)
[2017-04-12] MEDS: ECONAZOLE 1% TOPICAL SCH (22:22)
[2017-04-13] MEDS: Omeprazole CAP* 20 MG PO SCH (05:53)
[2017-04-13] MEDS: fentaNYL Patch Check Q Shift 1 NOTE SCH ×2 (06:58→20:06)
[2017-04-13] MEDS: oxyCODONE ORAL.SOLN* 5 MG/5 ML UDC PO SCH ×3 (08:52→17:30)
[2017-04-13] MEDS: Potassium Chlor TAB* 10 MEQ TAB.ER PO SCH (09:11)
[2017-04-13] MEDS: Ferrous Gluconate TAB* 324 MG TAB PO SCH ×2 (09:11→20:21)
[2017-04-13] MEDS: Pregabalin CAP(*) 50 MG PO SCH ×3 (09:12→20:21)
[2017-04-13] MEDS: Furosemide TAB* 40 MG PO SCH (09:12)
[2017-04-13] MEDS: Cholecalciferol TAB* 1000 UNITS PO SCH (09:13)
[2017-04-13] MEDS: metroNIDAZOLE TAB* 250 MG PO SCH ×2 (09:16→20:20)
[2017-04-13] MEDS: Ascorbic Acid TAB* 500 MG PO SCH (09:17)
[2017-04-13] MEDS: Aspirin EC Low Dose* 81 MG TAB.EC PO SCH (09:17)
[2017-04-13] MEDS: Cyanocobalamin TAB* 500 MCG PO SCH (09:18)
[2017-04-13] MEDS: Folic Acid TAB* 1 MG PO SCH (09:18)
[2017-04-13] MEDS: Diphenoxylat/Atrop 2.5-0.025M* 1 TAB PO SCH ×4 (09:20→20:21)
[2017-04-13] MEDS: Zinc Sulfate CAP* 220 MG PO SCH (09:24)
[2017-04-13] MEDS: Lactobacillus Acidophilu (GG)* 1 CAP CAP PO SCH ×2 (09:24→20:20)
[2017-04-13] MEDS: HYDROCORTISONE 2.5% TOPICAL SCH ×3 (10:37→20:16)
[2017-04-13] MEDS: Nystatin CREAM* 15 GM TUBE TOPICAL SCH ×2 (11:06→20:16)
[2017-04-13] MEDS: CLOBETASOL 0.05% TOPICAL SCH (11:06)
--- NOTE | 2017-04-13 14:05 | PN ---
Progress Note - Progress Note Date of Service: 04/13/17 SOAP: Subjective: CC: decubitus ulcer HPI: 71 year old man with sacral decubitus ulcer, feeling better and eating. No fever, rash, or diarrhea. No pain. Up this morning for breakfast. Objective: [] Vital Signs Temp 36.3 C 04/13/17 11:35 Pulse 82 04/13/17 11:35 Resp 14 04/13/17 13:54 BP 146/62 04/13/17 11:35 Pulse Ox 96 04/13/17 11:35 Intake & Output 04/12/17 04/13/17 04/13/17 18:59 06:59 18:59 Intake Total 1460 1100 240 Output Total 400 1350 Balance 1060 -250 240 Intake: Oral 1460 1100 240 Output: Fischer 400 1350 Other: # Bowel Movements 1 1 Estimated Stool Amount Small Medium Gen:awake, no distress HEENT:no thrush Heart:RRR no murmur Lungs:CTA BL Abd:+BS NTND soft Skin: no rash Assessment: 1. acute osteomyelitis, sacrum 2. 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 elevated CRP Plan: 1. continue ceftriaxone and flagyl day 30, CRP next week if still decreasing will change to PO.
--- NOTE | 2017-04-13 16:10 | PN ---
Subjective Date of Service: 04/13/17 Interval History: Patient has no new complaints. Pain 4/10 at rest after repositioning. Patient denies any change in pain overall. Plastic surgery consult still pending. Family History: Unchanged from Admission Social History: Unchanged from Admission - no changes noted Past Medical History: Unchanged from Admission Objective Active Medications: Acetaminophen (Tylenol Tab*) 650 mg PO Q6H PRN PRN Reason: FEVER/PAIN Ascorbic Acid (Vitamin C Tab*) 500 mg PO DAILY [facility] Last Admin: 04/13/17 09:17 Dose: 500 mg Aspirin (Aspirin Ec Low Dose*) 81 mg PO DAILY [facility] Last Admin: 04/13/17 09:17 Dose: 81 mg Bisacodyl (Dulcolax Supp*) 10 mg CO DAILY PRN PRN Reason: CONSTIPATION Cholecalciferol (Vitamin D Tab*) 5,000 units PO DAILY [facility] Last Admin: 04/13/17 09:13 Dose: 5,000 units Clobetasol Propionate (Clobetasol 0.05% Oint*) 1 applic TOPICAL DAILY [facility] Last Admin: 04/13/17 11:06 Dose: 1 applic Cyanocobalamin (Vitamin B12 Tab*) 1,000 mcg PO DAILY [facility] Last Admin: 04/13/17 09:18 Dose: 1,000 mcg Diphenoxylate HCl/Atropine (Lomotil Tab*) 1 tab PO QID [facility] Last Admin: 04/13/17 13:54 Dose: 1 tab Docusate Sodium (Colace Cap*) 100 mg PO BID PRN PRN Reason: CONSTIPATION Econazole Nitrate (Econazole 1 % Cream (Nf)) 1 applic TOPICAL 2100 [facility] Last Admin: 04/12/17 22:22 Dose: 1 applic Enoxaparin Sodium (Lovenox(*)) 40 mg SUBCUT Q24H [facility] Last Admin: 04/12/17 16:52 Dose: 40 mg Fentanyl (Duragesic Patch 75 Mcg/Hr*) 75 mcg TRANSDERM Q72H [facility] Last Admin: 04/12/17 19:24 Dose: 75 mcg Ferrous Gluconate (Fergon Tab*) 324 mg PO BID [facility] Last Admin: 04/13/17 09:11 Dose: 324 mg Folic Acid (Folvite Tab*) 0.5 mg PO DAILY [facility] Last Admin: 04/13/17 09:18 Dose: 0.5 mg Furosemide (Lasix Tab*) 40 mg PO DAILY [facility] Last Admin: 04/13/17 09:12 Dose: 40 mg Heparin Sodium (Porcine) (Heparin Flush Picc/Ml/Cvc(*)) 1 ml FLUSH 0600,1800 [facility] PRN Reason: Protocol Last Admin: 04/13/17 05:53 Dose: 1 ml Hydrocortisone (Hydrocortisone 2.5% Cream(Nf)) 1 applic TOPICAL TID [facility] Last Admin: 04/13/17 14:16 Dose: 1 applic Ceftriaxone Sodium 2 gm/ (Sodium Chloride) 100 mls @ 200 mls/hr IVPB DAILY [facility] Last Admin: 04/13/17 09:30 Dose: 200 mls/hr Lactobacillus Rhamnosus (Culturelle*) 1 cap PO BID [facility] Last Admin: 04/13/17 09:24 Dose: 1 cap Metronidazole (Flagyl Tab*) 500 mg PO BID [facility] Last Admin: 04/13/17 09:16 Dose: 500 mg Nystatin (Nystatin Cream*) 1 applic TOPICAL BID [facility] Last Admin: 04/13/17 11:06 Dose: 1 applic Omeprazole (Prilosec Cap*) 40 mg PO DAILY@0600 [facility] Last Admin: 04/13/17 05:53 Dose: 40 mg Ondansetron HCl (Zofran Odt Tab*) 4 mg PO Q8H PRN PRN Reason: NAUSEA/VOMITING Oxycodone HCl (Oxycodone Oral.Soln*) 10 mg PO AC [facility] Last Admin: 04/13/17 11:54 Dose: 10 mg Pharmacy Profile Note (Fentanyl Patch Check Q Shift) 1 note N/A 0700,1900 [facility] Last Admin: 04/13/17 06:58 Dose: 1 note Potassium Chloride (Klor Con Er Tab*) 10 meq PO DAILY [facility] Last Admin: 04/13/17 09:11 Dose: 10 meq Pregabalin (Lyrica Cap(*)) 150 mg PO TID [facility] Last Admin: 04/13/17 14:15 Dose: 150 mg Zinc Sulfate (Zinc-220 Cap*) 220 mg PO DAILY [facility] Last Admin: 04/13/17 09:24 Dose: 220 mg Vital Signs 04/12/17 04/12/17 04/12/17 16:05 16:51 18:51 Temperature Pulse Rate Respiratory 18 16 16 Rate Blood Pressure (mmHg) O2 Sat by Pulse Oximetry 04/12/17 04/12/17 04/12/17 20:22 21:50 21:57 Temperature 98.6 F Pulse Rate 81 Respiratory 18 16 16 Rate Blood Pressure 160/65 (mmHg) O2 Sat by Pulse 94 Oximetry 04/12/17 04/13/17 04/13/17 23:57 00:16 07:21 Temperature 98.2 F 97.8 F Pulse Rate 73 70 Respiratory 16 16 16 Rate Blood Pressure 150/75 129/53 (mmHg) O2 Sat by Pulse 95 97 Oximetry 04/13/17 04/13/17 04/13/17 08:00 08:52 09:12 Temperature Pulse Rate Respiratory 16 16 16 Rate Blood Pressure (mmHg) O2 Sat by Pulse Oximetry 04/13/17 04/13/17 04/13/17 09:20 10:52 11:35 Temperature 97.3 F Pulse Rate 82 Respiratory 16 16 16 Rate Blood Pressure 146/62 (mmHg) O2 Sat by Pulse 96 Oximetry 04/13/17 04/13/17 04/13/17 11:54 13:54 14:15 Temperature Pulse Rate Respiratory 16 16 14 Rate Blood Pressure (mmHg) O2 Sat by Pulse Oximetry 04/13/17 15:32 Temperature Pulse Rate Respiratory 14 Rate Blood Pressure (mmHg) O2 Sat by Pulse Oximetry Oxygen Devices in Use Now: None Appearance: Patient is a 71yo male who appears stated age sitting comfortably in bed in [facility]. Eyes: No Scleral Icterus, PERRLA Ears/Nose/Mouth/Throat: NL Teeth, Lips, Gums, Clear Oropharnyx, Mucous Membranes Moist Neck: NL Appearance and Movements; NL JVP Respiratory: Symmetrical Chest Expansion and Respiratory Effort, Clear to Auscultation Cardiovascular: NL Sounds; No Murmurs; No JVD, RRR, No Edema Abdominal: No Hepatosplenomegaly, - - Distended, unchanged from previous exams. BS present and normoactive in all 4 quadrants. Lymphatic: No Cervical Adenopathy Extremities: No Edema Skin: No Nodules or Sclerosis, - - Rash consistent with tinea corporis present but diminished on left hip. Neurological: Alert and Oriented x 3, - - Paralyzed and insensate from waist down. Result Diagrams: 04/11/17 06:32 04/11/17 06:32 Additional Lab and Data: . Assess/Plan/Problems-Billing . Assessment: 71 yo man with extreme pain and paraplegia chronically secondary to Ependymoma. P/w large Stage IV sacral decubitus ulcer which has been debrided multiple times. Failed wound vac in PMRU and back inpatient. Plastic surgery consultation at [facility] for possible flap. - Patient Problems (1) Acute osteomyelitis of sacrum Current Visit: Yes Status: Acute Code(s): M46.28 - OSTEOMYELITIS OF VERTEBRA , SACRAL AND SACROCOCCYGEAL REGION SNOMED Code(s): 304531896 Comment: Continue Ceftriaxone and flagyl at current doses per ID. No evidence of new sepsis (2) Chronic indwelling Fischer catheter Current Visit: Yes Status: Chronic Priority: High Code(s): Z92.89 - PERSONAL HISTORY OF OTHER MEDICAL TREATMENT SNOMED Code(s): 734738203 Comment: High risk of UTI - currently on ABX, no current evidence of UTI. (3) Neurogenic bladder Current Visit: Yes Status: Chronic Priority: High Code(s): N31.9 - NEUROMUSCULAR DYSFUNCTION OF BLADDER, UNSPECIFIED SNOMED Code(s): 588241578 Comment: With chronic indwelling urinary catheter (4) Neurogenic bowel Current Visit: Yes Status: Chronic Priority: High Code(s): K59.2 - NEUROGENIC BOWEL, NOT ELSEWHERE CLASSIFIED SNOMED Code(s): 756860172 Comment: loose bowel movements with repositioning. Frequent pericare to prevent skin breakdown. Flagyl and prn lomotil for diarrhea (5) Sacral decubitus ulcer, stage IV Current Visit: Yes Status: Chronic Priority: High Code(s): L89.154 - PRESSURE ULCER OF SACRAL REGION, STAGE 4 SNOMED Code(s): 961993667 Comment: Plastic surgery consultation to [facility] (Yassine Blankenship MD) is pending Continuing wound care per surgery recommendations, debrided 04/[address] Harmon , recommend changed from Santyl to Medihoney. Wound not visualized by author today. Appreciate nutrition recommendations to support healing, attempt for 6 small protein rich meals daily and continue vitamins. Vitamin C started per nutrition and . (6) DVT prophylaxis Current Visit: No Status: Acute Code(s): DVF1901 - SNOMED Code(s): 119152699 Comment: Lovenox TEDs in bed. (7) Diarrhea Current Visit: No Status: Acute Code(s): R19.7 - DIARRHEA, UNSPECIFIED SNOMED Code(s): 68655879 Comment: BMs more formed per patient. Diarrhea Likely ABX associated. ID thinks not Cdiff. Continue Flagyl, Probiotic, and Lomotil (8) Chronic back pain Current Visit: No Status: Chronic Code(s): M54.9 - DORSALGIA, UNSPECIFIED; G89.29 - OTHER CHRONIC PAIN SNOMED Code(s): 033341212 Comment: Secondary to ependymoma and sacral decub Continue pregabalin, and acetaminophen. oxycodone liquid to 10mg AC with one dose PRN for transfer. Fentanyl patch at 75mcg. Pain stable and tolerable with sitting. (9) MATY (obstructive sleep apnea) Current Visit: No Status: Chronic Code(s): G47.33 - OBSTRUCTIVE SLEEP APNEA (ADULT) (PEDIATRIC) SNOMED Code(s): 34022686 Comment: Continue home BiPAP use. (10) Paraplegia Current Visit: No Status: Chronic Code(s): G82.20 - PARAPLEGIA, UNSPECIFIED SNOMED Code(s): 94377369 Comment: Secondary to ependymoma Patient able to transfer with slide board today. (11) Full code status Current Visit: No Status: Acute Code(s): Z78.9 - OTHER SPECIFIED HEALTH STATUS SNOMED Code(s): 749059788 (12) Tinea corporis Current Visit: Yes Status: Acute Code(s): B35.4 - TINEA CORPORIS SNOMED Code(s): 29972612 Comment: Annular scaly lesion on hip spreading consistent with tinea corporis. Nystatin cream not effective against lesion. Will trial patient's home antifungal cream. Status and Disposition: Inpatient. Pending plastic surgery consult
[2017-04-13] MEDS: Enoxaparin(*) 40 MG/0.4 ML SYR SUBCUT SCH (18:36)
[2017-04-13] MEDS: ECONAZOLE 1% TOPICAL SCH (20:12)
[2017-04-14] MEDS: Omeprazole CAP* 20 MG PO SCH (06:04)
[2017-04-14] MEDS: fentaNYL Patch Check Q Shift 1 NOTE SCH ×2 (06:58→18:53)
[2017-04-14] MEDS: oxyCODONE ORAL.SOLN* 5 MG/5 ML UDC PO SCH ×3 (07:49→17:18)
[2017-04-14] MEDS: Cholecalciferol TAB* 1000 UNITS PO SCH (09:05)
[2017-04-14] MEDS: Ascorbic Acid TAB* 500 MG PO SCH (09:06)
[2017-04-14] MEDS: Zinc Sulfate CAP* 220 MG PO SCH (09:06)
[2017-04-14] MEDS: Lactobacillus Acidophilu (GG)* 1 CAP CAP PO SCH ×2 (09:06→23:03)
[2017-04-14] MEDS: Ferrous Gluconate TAB* 324 MG TAB PO SCH ×2 (09:06→23:03)
[2017-04-14] MEDS: Diphenoxylat/Atrop 2.5-0.025M* 1 TAB PO SCH ×4 (09:06→23:03)
[2017-04-14] MEDS: Potassium Chlor TAB* 10 MEQ TAB.ER PO SCH (09:06)
[2017-04-14] MEDS: Aspirin EC Low Dose* 81 MG TAB.EC PO SCH (09:06)
[2017-04-14] MEDS: Cyanocobalamin TAB* 500 MCG PO SCH (09:07)
[2017-04-14] MEDS: Folic Acid TAB* 1 MG PO SCH (09:07)
[2017-04-14] MEDS: metroNIDAZOLE TAB* 250 MG PO SCH ×2 (09:07→23:03)
[2017-04-14] MEDS: Pregabalin CAP(*) 50 MG PO SCH ×3 (09:07→23:04)
[2017-04-14] MEDS: Furosemide TAB* 40 MG PO SCH (09:07)
[2017-04-14] MEDS: HYDROCORTISONE 2.5% TOPICAL SCH ×3 (09:34→20:30)
[2017-04-14] MEDS: Nystatin CREAM* 15 GM TUBE TOPICAL SCH ×2 (09:34→20:30)
[2017-04-14] MEDS: CLOBETASOL 0.05% TOPICAL SCH (09:34)
--- NOTE | 2017-04-14 15:49 | PN ---
Subjective Date of Service: 04/14/17 Interval History: Patient has no new complaints overnight. Plastic surgeon from [facility] had emergency surgery and was unable to speak to family yesterday. No other concerns at this time. Family History: Unchanged from Admission Social History: Unchanged from Admission - no changes noted Past Medical History: Unchanged from Admission Objective Active Medications: Acetaminophen (Tylenol Tab*) 650 mg PO Q6H PRN PRN Reason: FEVER/PAIN Ascorbic Acid (Vitamin C Tab*) 500 mg PO DAILY [facility] Last Admin: 04/14/17 09:06 Dose: 500 mg Aspirin (Aspirin Ec Low Dose*) 81 mg PO DAILY [facility] Last Admin: 04/14/17 09:06 Dose: 81 mg Bisacodyl (Dulcolax Supp*) 10 mg MD DAILY PRN PRN Reason: CONSTIPATION Cholecalciferol (Vitamin D Tab*) 5,000 units PO DAILY [facility] Last Admin: 04/14/17 09:05 Dose: 5,000 units Clobetasol Propionate (Clobetasol 0.05% Oint*) 1 applic TOPICAL DAILY [facility] Last Admin: 04/14/17 09:34 Dose: 1 applic Cyanocobalamin (Vitamin B12 Tab*) 1,000 mcg PO DAILY [facility] Last Admin: 04/14/17 09:07 Dose: 1,000 mcg Diphenoxylate HCl/Atropine (Lomotil Tab*) 1 tab PO QID [facility] Last Admin: 04/14/17 12:50 Dose: 1 tab Docusate Sodium (Colace Cap*) 100 mg PO BID PRN PRN Reason: CONSTIPATION Econazole Nitrate (Econazole 1 % Cream (Nf)) 1 applic TOPICAL 2100 [facility] Last Admin: 04/13/17 20:12 Dose: 1 applic Enoxaparin Sodium (Lovenox(*)) 40 mg SUBCUT Q24H [facility] Last Admin: 04/13/17 18:36 Dose: 40 mg Fentanyl (Duragesic Patch 75 Mcg/Hr*) 75 mcg TRANSDERM Q72H [facility] Last Admin: 04/12/17 19:24 Dose: 75 mcg Ferrous Gluconate (Fergon Tab*) 324 mg PO BID [facility] Last Admin: 04/14/17 09:06 Dose: 324 mg Folic Acid (Folvite Tab*) 0.5 mg PO DAILY [facility] Last Admin: 04/14/17 09:07 Dose: 0.5 mg Furosemide (Lasix Tab*) 40 mg PO DAILY [facility] Last Admin: 04/14/17 09:07 Dose: 40 mg Heparin Sodium (Porcine) (Heparin Flush Picc/Ml/Cvc(*)) 1 ml FLUSH 0600,1800 [facility] PRN Reason: Protocol Last Admin: 04/14/17 10:07 Dose: 1 ml Hydrocortisone (Hydrocortisone 2.5% Cream(Nf)) 1 applic TOPICAL TID [facility] Last Admin: 04/14/17 14:22 Dose: 1 applic Ceftriaxone Sodium 2 gm/ (Sodium Chloride) 100 mls @ 200 mls/hr IVPB DAILY [facility] Last Admin: 04/14/17 09:05 Dose: 200 mls/hr Lactobacillus Rhamnosus (Culturelle*) 1 cap PO BID [facility] Last Admin: 04/14/17 09:06 Dose: 1 cap Metronidazole (Flagyl Tab*) 500 mg PO BID [facility] Last Admin: 04/14/17 09:07 Dose: 500 mg Nystatin (Nystatin Cream*) 1 applic TOPICAL BID [facility] Last Admin: 04/14/17 09:34 Dose: 1 applic Omeprazole (Prilosec Cap*) 40 mg PO DAILY@0600 [facility] Last Admin: 04/14/17 06:04 Dose: 40 mg Ondansetron HCl (Zofran Odt Tab*) 4 mg PO Q8H PRN PRN Reason: NAUSEA/VOMITING Oxycodone HCl (Oxycodone Oral.Soln*) 10 mg PO AC [facility] Last Admin: 04/14/17 11:45 Dose: 10 mg Pharmacy Profile Note (Fentanyl Patch Check Q Shift) 1 note N/A 0700,1900 [facility] Last Admin: 04/14/17 06:58 Dose: 1 note Potassium Chloride (Klor Con Er Tab*) 10 meq PO DAILY [facility] Last Admin: 04/14/17 09:06 Dose: 10 meq Pregabalin (Lyrica Cap(*)) 150 mg PO TID [facility] Last Admin: 04/14/17 14:19 Dose: 150 mg Zinc Sulfate (Zinc-220 Cap*) 220 mg PO DAILY [facility] Last Admin: 04/14/17 09:06 Dose: 220 mg Vital Signs 04/13/17 04/13/17 04/13/17 17:30 17:31 19:30 Temperature Pulse Rate Respiratory 18 16 16 Rate Blood Pressure (mmHg) O2 Sat by Pulse Oximetry 04/13/17 04/13/17 04/13/17 19:31 20:00 20:21 Temperature Pulse Rate Respiratory 16 16 16 Rate Blood Pressure (mmHg) O2 Sat by Pulse Oximetry 04/13/17 04/14/17 04/14/17 22:21 00:09 04:06 Temperature 98.9 F 98.4 F Pulse Rate 78 69 Respiratory 16 16 16 Rate Blood Pressure 139/55 120/52 (mmHg) O2 Sat by Pulse 96 95 Oximetry 04/14/17 04/14/17 04/14/17 07:45 07:49 08:00 Temperature 97.5 F Pulse Rate 73 Respiratory 16 16 18 Rate Blood Pressure 127/58 (mmHg) O2 Sat by Pulse 96 Oximetry 04/14/17 04/14/17 04/14/17 09:06 09:07 09:49 Temperature Pulse Rate Respiratory 18 18 18 Rate Blood Pressure (mmHg) O2 Sat by Pulse Oximetry 04/14/17 04/14/17 04/14/17 11:06 11:07 11:45 Temperature Pulse Rate Respiratory 18 18 16 Rate Blood Pressure (mmHg) O2 Sat by Pulse Oximetry 04/14/17 04/14/17 04/14/17 12:50 13:45 14:19 Temperature Pulse Rate Respiratory 18 18 18 Rate Blood Pressure (mmHg) O2 Sat by Pulse Oximetry Oxygen Devices in Use Now: None Appearance: Patient is a 71yo male who appears stated age sitting comfortably in the bed in [facility]. Eyes: No Scleral Icterus, PERRLA Ears/Nose/Mouth/Throat: NL Teeth, Lips, Gums, Clear Oropharnyx, Mucous Membranes Moist Neck: NL Appearance and Movements; NL JVP, Trachea Midline Respiratory: Symmetrical Chest Expansion and Respiratory Effort, Clear to Auscultation Cardiovascular: NL Sounds; No Murmurs; No JVD, RRR, No Edema Abdominal: No Hepatosplenomegaly, - - Normal exam except for moderate distention which is stable from previous exam. Lymphatic: No Cervical Adenopathy Extremities: No Edema Skin: No Nodules or Sclerosis, - - Improved ulcer consistent with tinea corporis on left hip. Neurological: Alert and Oriented x 3, - - Paralyzed and insensate from waist down. Result Diagrams: 04/11/17 06:32 04/11/17 06:32 Additional Lab and Data: . Assess/Plan/Problems-Billing . Assessment: 71 yo man with extreme pain and paraplegia chronically secondary to Ependymoma. P/w large Stage IV sacral decubitus ulcer which has been debrided multiple times. Failed wound vac in PMRU and back inpatient. Plastic surgery consultation at [facility] for possible flap. - Patient Problems (1) Acute osteomyelitis of sacrum Current Visit: Yes Status: Acute Code(s): M46.28 - OSTEOMYELITIS OF VERTEBRA , SACRAL AND SACROCOCCYGEAL REGION SNOMED Code(s): 435754213 Comment: Continue Ceftriaxone and flagyl at current doses per ID. No evidence of new sepsis (2) Chronic indwelling Fischer catheter Current Visit: Yes Status: Chronic Priority: High Code(s): Z92.89 - PERSONAL HISTORY OF OTHER MEDICAL TREATMENT SNOMED Code(s): 695126473 Comment: High risk of UTI - currently on ABX, no current evidence of UTI. (3) Neurogenic bladder Current Visit: Yes Status: Chronic Priority: High Code(s): N31.9 - NEUROMUSCULAR DYSFUNCTION OF BLADDER, UNSPECIFIED SNOMED Code(s): 459533933 Comment: With chronic indwelling urinary catheter (4) Neurogenic bowel Current Visit: Yes Status: Chronic Priority: High Code(s): K59.2 - NEUROGENIC BOWEL, NOT ELSEWHERE CLASSIFIED SNOMED Code(s): 650440081 Comment: loose bowel movements with repositioning. Frequent pericare to prevent skin breakdown. Flagyl and prn lomotil for diarrhea (5) Sacral decubitus ulcer, stage IV Current Visit: Yes Status: Chronic Priority: High Code(s): L89.154 - PRESSURE ULCER OF SACRAL REGION, STAGE 4 SNOMED Code(s): 276785308 Comment: Plastic surgery consultation to [facility] (Yassine Blankenship MD) is pending Continuing wound care per surgery recommendations, debrided 04/[address] Harmon , recommend changed from Santyl to Medihoney. Wound not visualized by author today. Appreciate nutrition recommendations to support healing, attempt for 6 small protein rich meals daily and continue vitamins. Vitamin C started per nutrition and . (6) DVT prophylaxis Current Visit: No Status: Acute Code(s): XTO8640 - SNOMED Code(s): 263195116 Comment: Lovenox TEDs in bed. (7) Diarrhea Current Visit: No Status: Acute Code(s): R19.7 - DIARRHEA, UNSPECIFIED SNOMED Code(s): 15069758 Comment: BMs consistently loose per nursing staff. Continued assiduous charlene-care. Diarrhea Likely ABX associated. ID thinks not Cdiff. Continue Flagyl, Probiotic , and Lomotil (8) Chronic back pain Current Visit: No Status: Chronic Code(s): M54.9 - DORSALGIA, UNSPECIFIED; G89.29 - OTHER CHRONIC PAIN SNOMED Code(s): 432542840 Comment: Secondary to ependymoma and sacral decub Continue pregabalin, and acetaminophen. oxycodone liquid to 10mg AC with one dose PRN for transfer. Fentanyl patch at 75mcg. Pain stable and tolerable with sitting. (9) MATY (obstructive sleep apnea) Current Visit: No Status: Chronic Code(s): G47.33 - OBSTRUCTIVE SLEEP APNEA (ADULT) (PEDIATRIC) SNOMED Code(s): 41874934 Comment: Continue home BiPAP use. (10) Paraplegia Current Visit: No Status: Chronic Code(s): G82.20 - PARAPLEGIA, UNSPECIFIED SNOMED Code(s): 73487561 Comment: Secondary to ependymoma Patient able to transfer with slide board today. (11) Full code status Current Visit: No Status: Acute Code(s): Z78.9 - OTHER SPECIFIED HEALTH STATUS SNOMED Code(s): 529135869 (12) Tinea corporis Current Visit: Yes Status: Acute Code(s): B35.4 - TINEA CORPORIS SNOMED Code(s): 60380634 Comment: Improving annular scaly lesion on hip spreading consistent with tinea corporis. Nystatin cream not effective against lesion. Will trial patient's home antifungal cream. Status and Disposition: Inpatient. Pending plastic surgery consult
[2017-04-14] MEDS: Enoxaparin(*) 40 MG/0.4 ML SYR SUBCUT SCH (17:18)
[2017-04-14] MEDS: ECONAZOLE 1% TOPICAL SCH (23:07)
[2017-04-15] MEDS: Omeprazole CAP* 20 MG PO SCH (06:26)
[2017-04-15] MEDS: fentaNYL Patch Check Q Shift 1 NOTE SCH ×2 (06:51→18:56)
[2017-04-15] MEDS: CLOBETASOL 0.05% TOPICAL SCH (08:04)
[2017-04-15] MEDS: HYDROCORTISONE 2.5% TOPICAL SCH ×3 (08:05→20:36)
[2017-04-15] MEDS: Nystatin CREAM* 15 GM TUBE TOPICAL SCH ×2 (08:05→20:36)
[2017-04-15] MEDS: Folic Acid TAB* 1 MG PO SCH (08:25)
[2017-04-15] MEDS: metroNIDAZOLE TAB* 250 MG PO SCH ×2 (08:26→20:36)
[2017-04-15] MEDS: Ferrous Gluconate TAB* 324 MG TAB PO SCH ×2 (08:26→20:35)
[2017-04-15] MEDS: Lactobacillus Acidophilu (GG)* 1 CAP CAP PO SCH ×2 (08:26→20:36)
[2017-04-15] MEDS: Aspirin EC Low Dose* 81 MG TAB.EC PO SCH (08:26)
[2017-04-15] MEDS: Ascorbic Acid TAB* 500 MG PO SCH (08:26)
[2017-04-15] MEDS: Diphenoxylat/Atrop 2.5-0.025M* 1 TAB PO SCH ×4 (08:26→20:36)
[2017-04-15] MEDS: Cholecalciferol TAB* 1000 UNITS PO SCH (08:26)
[2017-04-15] MEDS: Potassium Chlor TAB* 10 MEQ TAB.ER PO SCH (08:27)
[2017-04-15] MEDS: Furosemide TAB* 40 MG PO SCH (08:27)
[2017-04-15] MEDS: Cyanocobalamin TAB* 500 MCG PO SCH (08:27)
[2017-04-15] MEDS: Zinc Sulfate CAP* 220 MG PO SCH (08:27)
[2017-04-15] MEDS: Pregabalin CAP(*) 50 MG PO SCH ×3 (08:37→20:35)
[2017-04-15] MEDS: oxyCODONE ORAL.SOLN* 5 MG/5 ML UDC PO SCH ×3 (08:38→17:12)
--- NOTE | 2017-04-15 15:12 | PN ---
Subjective Date of Service: 04/15/17 Interval History: No new complaints. Patient's not in today yet. Pain controlled. Patient in good spirits. Family History: Unchanged from Admission Social History: Unchanged from Admission - no changes noted Past Medical History: Unchanged from Admission Objective Active Medications: Acetaminophen (Tylenol Tab*) 650 mg PO Q6H PRN PRN Reason: FEVER/PAIN Ascorbic Acid (Vitamin C Tab*) 500 mg PO DAILY [facility] Last Admin: 04/15/17 08:26 Dose: 500 mg Aspirin (Aspirin Ec Low Dose*) 81 mg PO DAILY [facility] Last Admin: 04/15/17 08:26 Dose: 81 mg Bisacodyl (Dulcolax Supp*) 10 mg [place] DAILY PRN PRN Reason: CONSTIPATION Cholecalciferol (Vitamin D Tab*) 5,000 units PO DAILY [facility] Last Admin: 04/15/17 08:26 Dose: 5,000 units Clobetasol Propionate (Clobetasol 0.05% Oint*) 1 applic TOPICAL DAILY [facility] Last Admin: 04/15/17 08:04 Dose: 1 applic Cyanocobalamin (Vitamin B12 Tab*) 1,000 mcg PO DAILY [facility] Last Admin: 04/15/17 08:27 Dose: 1,000 mcg Diphenoxylate HCl/Atropine (Lomotil Tab*) 1 tab PO QID [facility] Last Admin: 04/15/17 14:43 Dose: 1 tab Docusate Sodium (Colace Cap*) 100 mg PO BID PRN PRN Reason: CONSTIPATION Econazole Nitrate (Econazole 1 % Cream (Nf)) 1 applic TOPICAL 2100 [facility] Last Admin: 04/14/17 23:07 Dose: 1 applic Enoxaparin Sodium (Lovenox(*)) 40 mg SUBCUT Q24H [facility] Last Admin: 04/14/17 17:18 Dose: 40 mg Fentanyl (Duragesic Patch 75 Mcg/Hr*) 75 mcg TRANSDERM Q72H [facility] Last Admin: 04/12/17 19:24 Dose: 75 mcg Ferrous Gluconate (Fergon Tab*) 324 mg PO BID [facility] Last Admin: 04/15/17 08:26 Dose: 324 mg Folic Acid (Folvite Tab*) 0.5 mg PO DAILY [facility] Last Admin: 04/15/17 08:25 Dose: 0.5 mg Furosemide (Lasix Tab*) 40 mg PO DAILY [facility] Last Admin: 04/15/17 08:27 Dose: 40 mg Heparin Sodium (Porcine) (Heparin Flush Picc/Ml/Cvc(*)) 1 ml FLUSH 0600,1800 [facility] PRN Reason: Protocol Last Admin: 04/15/17 12:11 Dose: 1 ml Hydrocortisone (Hydrocortisone 2.5% Cream(Nf)) 1 applic TOPICAL TID [facility] Last Admin: 04/15/17 08:05 Dose: 1 applic Ceftriaxone Sodium 2 gm/ (Sodium Chloride) 100 mls @ 200 mls/hr IVPB DAILY [facility] Last Admin: 04/15/17 08:38 Dose: 200 mls/hr Lactobacillus Rhamnosus (Culturelle*) 1 cap PO BID [facility] Last Admin: 04/15/17 08:26 Dose: 1 cap Metronidazole (Flagyl Tab*) 500 mg PO BID [facility] Last Admin: 04/15/17 08:26 Dose: 500 mg Nystatin (Nystatin Cream*) 1 applic TOPICAL BID [facility] Last Admin: 04/15/17 08:05 Dose: 1 applic Omeprazole (Prilosec Cap*) 40 mg PO DAILY@0600 [facility] Last Admin: 04/15/17 06:26 Dose: 40 mg Ondansetron HCl (Zofran Odt Tab*) 4 mg PO Q8H PRN PRN Reason: NAUSEA/VOMITING Oxycodone HCl (Oxycodone Oral.Soln*) 10 mg PO AC [facility] Last Admin: 04/15/17 12:11 Dose: 10 mg Pharmacy Profile Note (Fentanyl Patch Check Q Shift) 1 note N/A 0700,1900 [facility] Last Admin: 04/15/17 06:51 Dose: 1 note Potassium Chloride (Klor Con Er Tab*) 10 meq PO DAILY [facility] Last Admin: 04/15/17 08:27 Dose: 10 meq Pregabalin (Lyrica Cap(*)) 150 mg PO TID [facility] Last Admin: 04/15/17 14:43 Dose: 150 mg Zinc Sulfate (Zinc-220 Cap*) 220 mg PO DAILY [facility] Last Admin: 04/15/17 08:27 Dose: 220 mg Vital Signs 04/14/17 04/14/17 04/14/17 16:04 17:18 19:18 Temperature 98.5 F Pulse Rate 81 Respiratory 14 17 16 Rate Blood Pressure 148/68 (mmHg) O2 Sat by Pulse 97 Oximetry 04/14/17 04/14/17 04/14/17 20:03 23:03 23:04 Temperature 98.6 F Pulse Rate 86 Respiratory 16 16 16 Rate Blood Pressure 151/51 (mmHg) O2 Sat by Pulse 96 Oximetry 04/14/17 04/15/17 04/15/17 23:15 00:01 00:40 Temperature 98.3 F Pulse Rate 78 Respiratory 16 14 14 Rate Blood Pressure 141/54 (mmHg) O2 Sat by Pulse 96 Oximetry 04/15/17 04/15/17 04/15/17 04:00 08:07 08:26 Temperature 97.9 F Pulse Rate 73 75 Respiratory 16 14 16 Rate Blood Pressure 141/64 142/56 (mmHg) O2 Sat by Pulse 99 97 Oximetry 04/15/17 04/15/17 04/15/17 08:37 08:38 10:26 Temperature Pulse Rate Respiratory 16 16 16 Rate Blood Pressure (mmHg) O2 Sat by Pulse Oximetry 04/15/17 04/15/17 04/15/17 10:38 12:11 12:16 Temperature 98.0 F Pulse Rate 78 Respiratory 16 16 18 Rate Blood Pressure 171/74 (mmHg) O2 Sat by Pulse 98 Oximetry 04/15/17 14:43 Temperature Pulse Rate Respiratory 16 Rate Blood Pressure (mmHg) O2 Sat by Pulse Oximetry Oxygen Devices in Use Now: None Appearance: Patient is a 71yo male who appears stated age sitting comfortably in the bed in [facility]. Eyes: No Scleral Icterus, PERRLA Ears/Nose/Mouth/Throat: NL Teeth, Lips, Gums, Clear Oropharnyx, Mucous Membranes Moist Neck: NL Appearance and Movements; NL JVP, Trachea Midline Respiratory: Symmetrical Chest Expansion and Respiratory Effort, Clear to Auscultation Cardiovascular: NL Sounds; No Murmurs; No JVD, RRR, No Edema Abdominal: No Hepatosplenomegaly, - - Distended, otherwise normal exam. Lymphatic: No Cervical Adenopathy Extremities: No Edema Skin: - - Stable rash on left hip. Area covered by black dry skin on left ankle. Slight blanchable red area on right ankle. Neurological: Alert and Oriented x 3, - - Paralyzed and insensate from waist down. Result Diagrams: 04/11/17 06:32 04/11/17 06:32 Additional Lab and Data: . Assess/Plan/Problems-Billing . Assessment: 71 yo man with extreme pain and paraplegia chronically secondary to Ependymoma. P/w large Stage IV sacral decubitus ulcer which has been debrided multiple times. Failed wound vac in PMRU and back inpatient. Plastic surgery consultation at [facility] for possible flap. - Patient Problems (1) Acute osteomyelitis of sacrum Current Visit: Yes Status: Acute Code(s): M46.28 - OSTEOMYELITIS OF VERTEBRA , SACRAL AND SACROCOCCYGEAL REGION SNOMED Code(s): 654320803 Comment: Continue Ceftriaxone and flagyl at current doses per ID. No evidence of new sepsis (2) Chronic indwelling Fischer catheter Current Visit: Yes Status: Chronic Priority: High Code(s): Z92.89 - PERSONAL HISTORY OF OTHER MEDICAL TREATMENT SNOMED Code(s): 444569797 Comment: High risk of UTI - currently on ABX, no current evidence of UTI. (3) Neurogenic bladder Current Visit: Yes Status: Chronic Priority: High Code(s): N31.9 - NEUROMUSCULAR DYSFUNCTION OF BLADDER, UNSPECIFIED SNOMED Code(s): 940779476 Comment: With chronic indwelling urinary catheter (4) Neurogenic bowel Current Visit: Yes Status: Chronic Priority: High Code(s): K59.2 - NEUROGENIC BOWEL, NOT ELSEWHERE CLASSIFIED SNOMED Code(s): 404057366 Comment: loose bowel movements with repositioning. Frequent pericare to prevent skin breakdown. Flagyl and prn lomotil for diarrhea (5) Sacral decubitus ulcer, stage IV Current Visit: Yes Status: Chronic Priority: High Code(s): L89.154 - PRESSURE ULCER OF SACRAL REGION, STAGE 4 SNOMED Code(s): 735833189 Comment: Plastic surgery consultation to [facility] (Yassine Blankenship MD) is pending Continuing wound care per surgery recommendations, debrided 04/[address] Harmon , recommend changed from Santyl to Medihoney. Wound not visualized by author today. Appreciate nutrition recommendations to support healing, attempt for 6 small protein rich meals daily and continue vitamins. Vitamin C started per nutrition and . (6) DVT prophylaxis Current Visit: No Status: Acute Code(s): FCC7688 - SNOMED Code(s): 067701687 Comment: Lovenox TEDs in bed. (7) Diarrhea Current Visit: No Status: Acute Code(s): R19.7 - DIARRHEA, UNSPECIFIED SNOMED Code(s): 84995566 Comment: BMs consistently loose per nursing staff, single formed stool. Continued assiduous charlene-care. Diarrhea Likely ABX associated. ID thinks not Cdiff. Continue Flagyl, Probiotic, and Lomotil (8) Chronic back pain Current Visit: No Status: Chronic Code(s): M54.9 - DORSALGIA, UNSPECIFIED; G89.29 - OTHER CHRONIC PAIN SNOMED Code(s): 517815984 Comment: Secondary to ependymoma and sacral decub Continue pregabalin, and acetaminophen. oxycodone liquid to 10mg AC with one dose PRN for transfer. Fentanyl patch at 75mcg. Pain stable and tolerable with sitting. (9) MATY (obstructive sleep apnea) Current Visit: No Status: Chronic Code(s): G47.33 - OBSTRUCTIVE SLEEP APNEA (ADULT) (PEDIATRIC) SNOMED Code(s): 21940551 Comment: Continue home BiPAP use. (10) Paraplegia Current Visit: No Status: Chronic Code(s): G82.20 - PARAPLEGIA, UNSPECIFIED SNOMED Code(s): 26488888 Comment: Secondary to ependymoma Patient able to transfer with slide board. (11) Full code status Current Visit: No Status: Acute Code(s): Z78.9 - OTHER SPECIFIED HEALTH STATUS SNOMED Code(s): 269236738 (12) Tinea corporis Current Visit: Yes Status: Acute Code(s): B35.4 - TINEA CORPORIS SNOMED Code(s): 46688868 Comment: Improving annular scaly lesion on hip spreading consistent with tinea corporis. Nystatin cream not effective against lesion. Will trial patient's home antifungal cream. Status and Disposition: Inpatient. Pending plastic surgery consult
[2017-04-15] MEDS: fentaNYL PATCH 75 MCG/HR* 75 MCG TRANSDERM SCH (17:13)
[2017-04-15] MEDS: Enoxaparin(*) 40 MG/0.4 ML SYR SUBCUT SCH (17:13)
[2017-04-15] MEDS: ECONAZOLE 1% TOPICAL SCH (20:37)
[2017-04-16] MEDS: Omeprazole CAP* 20 MG PO SCH (05:55)
[2017-04-16] MEDS: fentaNYL Patch Check Q Shift 1 NOTE SCH ×2 (07:17→18:49)
[2017-04-16] MEDS: oxyCODONE ORAL.SOLN* 5 MG/5 ML UDC PO SCH ×3 (08:04→16:59)
[2017-04-16] MEDS: Folic Acid TAB* 1 MG PO SCH (09:32)
[2017-04-16] MEDS: Cholecalciferol TAB* 1000 UNITS PO SCH (09:32)
[2017-04-16] MEDS: Diphenoxylat/Atrop 2.5-0.025M* 1 TAB PO SCH ×4 (09:32→20:56)
[2017-04-16] MEDS: Aspirin EC Low Dose* 81 MG TAB.EC PO SCH (09:32)
[2017-04-16] MEDS: Cyanocobalamin TAB* 500 MCG PO SCH (09:33)
[2017-04-16] MEDS: Ascorbic Acid TAB* 500 MG PO SCH (09:33)
[2017-04-16] MEDS: Ferrous Gluconate TAB* 324 MG TAB PO SCH ×2 (09:33→20:57)
[2017-04-16] MEDS: Furosemide TAB* 40 MG PO SCH (09:33)
[2017-04-16] MEDS: metroNIDAZOLE TAB* 250 MG PO SCH ×2 (09:33→20:56)
[2017-04-16] MEDS: Potassium Chlor TAB* 10 MEQ TAB.ER PO SCH (09:33)
[2017-04-16] MEDS: Pregabalin CAP(*) 50 MG PO SCH ×3 (09:33→20:56)
[2017-04-16] MEDS: Lactobacillus Acidophilu (GG)* 1 CAP CAP PO SCH ×2 (09:37→20:56)
[2017-04-16] MEDS: Zinc Sulfate CAP* 220 MG PO SCH (09:38)
[2017-04-16] MEDS: HYDROCORTISONE 2.5% TOPICAL SCH ×3 (10:29→21:05)
[2017-04-16] MEDS: Nystatin CREAM* 15 GM TUBE TOPICAL SCH ×2 (11:40→21:05)
[2017-04-16] MEDS: CLOBETASOL 0.05% TOPICAL SCH (11:40)
--- NOTE | 2017-04-16 15:20 | PN ---
Subjective Date of Service: 04/16/17 Interval History: Patient has no new complaints. No new on [facility] consult, tomorrow will hopefully be the day to answer questions. Family History: Unchanged from Admission Social History: Unchanged from Admission - no changes noted Past Medical History: Unchanged from Admission Objective Active Medications: Acetaminophen (Tylenol Tab*) 650 mg PO Q6H PRN PRN Reason: FEVER/PAIN Ascorbic Acid (Vitamin C Tab*) [address] [facility] Last Admin: 04/16/17 09:33 Dose: 500 mg Aspirin (Aspirin Ec Low Dose*) [address] [facility] Last Admin: 04/16/17 09:32 Dose: 81 mg Bisacodyl (Dulcolax Supp*) 10 mg [place] DAILY PRN PRN Reason: CONSTIPATION Cholecalciferol (Vitamin D Tab*) 5,[address] [facility] Last Admin: 04/16/17 09:32 Dose: 5,000 units Clobetasol Propionate (Clobetasol 0.05% Oint*) [address] [facility] Last Admin: 04/16/17 11:40 Dose: 1 applic Cyanocobalamin (Vitamin B12 Tab*) 1,[address] [facility] Last Admin: 04/16/17 09:33 Dose: 1,000 mcg Diphenoxylate HCl/Atropine (Lomotil Tab*) [address] [facility] Last Admin: 04/16/17 14:18 Dose: 1 tab Docusate Sodium (Colace Cap*) 100 mg PO BID PRN PRN Reason: CONSTIPATION Econazole Nitrate (Econazole 1 % Cream (Nf)) [address] [facility] Last Admin: 04/15/17 20:37 Dose: 1 applic Enoxaparin Sodium (Lovenox(*)) [address] [facility] Last Admin: 04/15/17 17:13 Dose: 40 mg Fentanyl (Duragesic Patch 75 Mcg/Hr*) [address] [facility] Last Admin: 04/15/17 17:13 Dose: 75 mcg Ferrous Gluconate (Fergon Tab*) [address] [facility] Last Admin: 04/16/17 09:33 Dose: 324 mg Folic Acid (Folvite Tab*) 0.[address] [facility] Last Admin: 04/16/17 09:32 Dose: 0.5 mg Furosemide (Lasix Tab*) [address] [facility] Last Admin: 04/16/17 09:33 Dose: 40 mg Heparin Sodium (Porcine) (Heparin Flush Picc/Ml/Cvc(*)) 1 ml FLUSH 0600,1800 [facility] PRN Reason: Protocol Last Admin: 04/16/17 11:00 Dose: 1 ml Hydrocortisone (Hydrocortisone 2.5% Cream(Nf)) [address] [facility] Last Admin: 04/16/17 14:20 Dose: 1 applic Ceftriaxone Sodium 2 gm/ (Sodium Chloride) 100 mls @ 200 mls/hr IVPB DAILY [facility] Last Admin: 04/16/17 10:06 Dose: 200 mls/hr Lactobacillus Rhamnosus (Culturelle*) [address] [facility] Last Admin: 04/16/17 09:37 Dose: 1 cap Metronidazole (Flagyl Tab*) [address] [facility] Last Admin: 04/16/17 09:33 Dose: 500 mg Nystatin (Nystatin Cream*) [address] [facility] Last Admin: 04/16/17 11:40 Dose: 1 applic Omeprazole (Prilosec Cap*) 40 mg PO DAILY@0600 [facility] Last Admin: 04/16/17 05:55 Dose: 40 mg Ondansetron HCl (Zofran Odt Tab*) 4 mg PO Q8H PRN PRN Reason: NAUSEA/VOMITING Oxycodone HCl (Oxycodone Oral.Soln*) [address] [facility] Last Admin: 04/16/17 12:02 Dose: 10 mg Pharmacy Profile Note (Fentanyl Patch Check Q Shift) 1 note N/A 0700,1900 [facility] Last Admin: 04/16/17 07:17 Dose: 1 note Potassium Chloride (Klor Con Er Tab*) [address] [facility] Last Admin: 04/16/17 09:33 Dose: 10 meq Pregabalin (Lyrica Cap(*)) [address] [facility] Last Admin: 04/16/17 14:18 Dose: 150 mg Zinc Sulfate (Zinc-220 Cap*) [address] [facility] Last Admin: 04/16/17 09:38 Dose: 220 mg Vital Signs 04/15/17 04/15/17 04/15/17 16:15 16:39 16:43 Temperature 98.0 F Pulse Rate 88 Respiratory 16 16 16 Rate Blood Pressure 141/51 (mmHg) O2 Sat by Pulse 96 Oximetry 04/15/17 04/15/17 04/15/17 17:12 19:12 20:15 Temperature Pulse Rate Respiratory 16 14 16 Rate Blood Pressure (mmHg) O2 Sat by Pulse Oximetry 04/15/17 04/15/17 04/15/17 20:35 20:36 20:50 Temperature 98.0 F Pulse Rate 78 Respiratory 16 16 14 Rate Blood Pressure 172/70 (mmHg) O2 Sat by Pulse 97 Oximetry 04/15/17 04/16/17 04/16/17 22:35 00:05 03:56 Temperature 98.2 F 98.0 F Pulse Rate 78 72 Respiratory 12 16 16 Rate Blood Pressure 162/81 138/57 (mmHg) O2 Sat by Pulse 96 96 Oximetry 04/16/17 04/16/17 04/16/17 07:51 08:00 08:04 Temperature 97.5 F Pulse Rate 68 Respiratory 18 14 14 Rate Blood Pressure 118/51 (mmHg) O2 Sat by Pulse 96 Oximetry 04/16/17 04/16/17 04/16/17 09:32 09:33 10:04 Temperature Pulse Rate Respiratory 16 16 16 Rate Blood Pressure (mmHg) O2 Sat by Pulse Oximetry 04/16/17 04/16/17 04/16/17 11:14 11:32 12:02 Temperature 98.2 F Pulse Rate 82 Respiratory 17 16 16 Rate Blood Pressure 148/51 (mmHg) O2 Sat by Pulse 97 Oximetry 04/16/17 04/16/17 14:02 14:18 Temperature Pulse Rate Respiratory 16 16 Rate Blood Pressure (mmHg) O2 Sat by Pulse Oximetry Oxygen Devices in Use Now: None Appearance: Patient is a 71yo male who appears stated age sitting comfortably in the bed in [facility]. Eyes: No Scleral Icterus, PERRLA Ears/Nose/Mouth/Throat: NL Teeth, Lips, Gums, Clear Oropharnyx, Mucous Membranes Moist Neck: NL Appearance and Movements; NL JVP, Trachea Midline Respiratory: Symmetrical Chest Expansion and Respiratory Effort, Clear to Auscultation Cardiovascular: NL Sounds; No Murmurs; No JVD, RRR, No Edema Abdominal: No Hepatosplenomegaly, - - Stable distention, no other abnormailities Lymphatic: No Cervical Adenopathy Extremities: No Edema Skin: - - Improved rash on L hip Neurological: Alert and Oriented x 3, - - Patient is paralzyed from the waist down and is insensate. Result Diagrams: 04/11/17 06:32 04/11/17 06:32 Additional Lab and Data: . Assess/Plan/Problems-Billing . Assessment: 71 yo man with extreme pain and paraplegia chronically secondary to Ependymoma. P/w large Stage IV sacral decubitus ulcer which has been debrided multiple times. Failed wound vac in PMRU and back inpatient. Plastic surgery consultation at [facility] for possible flap. - Patient Problems (1) Acute osteomyelitis of sacrum Current Visit: Yes Status: Acute Code(s): M46.28 - OSTEOMYELITIS OF VERTEBRA , SACRAL AND SACROCOCCYGEAL REGION SNOMED Code(s): 609048244 Comment: Continue Ceftriaxone and flagyl at current doses per ID. No evidence of new sepsis, CRP stable. (2) Chronic indwelling Fischer catheter Current Visit: Yes Status: Chronic Priority: High Code(s): Z92.89 - PERSONAL HISTORY OF OTHER MEDICAL TREATMENT SNOMED Code(s): 023185325 Comment: High risk of UTI - currently on ABX, no current evidence of UTI. (3) Neurogenic bladder Current Visit: Yes Status: Chronic Priority: High Code(s): N31.9 - NEUROMUSCULAR DYSFUNCTION OF BLADDER, UNSPECIFIED SNOMED Code(s): 066001086 Comment: With chronic indwelling urinary catheter (4) Neurogenic bowel Current Visit: Yes Status: Chronic Priority: High Code(s): K59.2 - NEUROGENIC BOWEL, NOT ELSEWHERE CLASSIFIED SNOMED Code(s): 330676463 Comment: loose bowel movements with repositioning. Becoming more formed. Frequent pericare to prevent skin breakdown. Flagyl and prn lomotil for diarrhea (5) Sacral decubitus ulcer, stage IV Current Visit: Yes Status: Chronic Priority: High Code(s): L89.154 - PRESSURE ULCER OF SACRAL REGION, STAGE 4 SNOMED Code(s): 063814859 Comment: Plastic surgery consultation to [facility] (Yassine Blankenship MD) is pending Continuing wound care per surgery recommendations, debrided 04/[address] Harmon , recommend changed from Santyl to Medihoney. Wound not visualized by author today. Appreciate nutrition recommendations to support healing, attempt for 6 small protein rich meals daily and continue vitamins. Vitamin C started per nutrition and . (6) DVT prophylaxis Current Visit: No Status: Acute Code(s): MBF7882 - SNOMED Code(s): 796323673 Comment: Lovenox TEDs in bed. (7) Diarrhea Current Visit: No Status: Acute Code(s): R19.7 - DIARRHEA, UNSPECIFIED SNOMED Code(s): 25828972 Comment: BMs consistently loose per nursing staff, single formed stool. Continued assiduous charlene-care. Diarrhea Likely ABX associated. ID thinks not Cdiff. Continue Flagyl, Probiotic, and Lomotil (8) Chronic back pain Current Visit: No Status: Chronic Code(s): M54.9 - DORSALGIA, UNSPECIFIED; G89.29 - OTHER CHRONIC PAIN SNOMED Code(s): 777784332 Comment: Secondary to ependymoma and sacral decub Continue pregabalin, and acetaminophen. oxycodone liquid to 10mg AC with one dose PRN for transfer. Fentanyl patch at 75mcg. Pain stable and tolerable with sitting. (9) MATY (obstructive sleep apnea) Current Visit: No Status: Chronic Code(s): G47.33 - OBSTRUCTIVE SLEEP APNEA (ADULT) (PEDIATRIC) SNOMED Code(s): 20129456 Comment: Continue home BiPAP use. (10) Paraplegia Current Visit: No Status: Chronic Code(s): G82.20 - PARAPLEGIA, UNSPECIFIED SNOMED Code(s): 85677190 Comment: Secondary to ependymoma Patient able to transfer with slide board. (11) Full code status Current Visit: No Status: Acute Code(s): Z78.9 - OTHER SPECIFIED HEALTH STATUS SNOMED Code(s): 108556048 (12) Tinea corporis Current Visit: Yes Status: Acute Code(s): B35.4 - TINEA CORPORIS SNOMED Code(s): 99969638 Comment: Improving annular scaly lesion on hip consistent with tinea corporis. Nystatin cream not effective against lesion. Will trial patient's home antifungal cream. Status and Disposition: Inpatient. Pending plastic surgery consult
[2017-04-16] MEDS: Enoxaparin(*) 40 MG/0.4 ML SYR SUBCUT SCH (18:28)
[2017-04-16] MEDS: ECONAZOLE 1% TOPICAL SCH (21:01)
[2017-04-17] MEDS: Omeprazole CAP* 20 MG PO SCH (05:51)
[2017-04-17] MEDS: fentaNYL Patch Check Q Shift 1 NOTE SCH ×2 (07:14→19:06)
[2017-04-17] MEDS: oxyCODONE ORAL.SOLN* 5 MG/5 ML UDC PO SCH ×3 (08:09→17:16)
[2017-04-17] MEDS: Cyanocobalamin TAB* 500 MCG PO SCH (09:35)
[2017-04-17] MEDS: Aspirin EC Low Dose* 81 MG TAB.EC PO SCH (09:35)
[2017-04-17] MEDS: Diphenoxylat/Atrop 2.5-0.025M* 1 TAB PO SCH ×4 (09:35→20:31)
[2017-04-17] MEDS: metroNIDAZOLE TAB* 250 MG PO SCH ×2 (09:35→20:01)
[2017-04-17] MEDS: Ferrous Gluconate TAB* 324 MG TAB PO SCH ×2 (09:35→20:02)
[2017-04-17] MEDS: Ascorbic Acid TAB* 500 MG PO SCH (09:35)
[2017-04-17] MEDS: Lactobacillus Acidophilu (GG)* 1 CAP CAP PO SCH ×2 (09:35→20:02)
[2017-04-17] MEDS: Zinc Sulfate CAP* 220 MG PO SCH (09:35)
[2017-04-17] MEDS: Furosemide TAB* 40 MG PO SCH (09:36)
[2017-04-17] MEDS: Cholecalciferol TAB* 1000 UNITS PO SCH (09:36)
[2017-04-17] MEDS: Potassium Chlor TAB* 10 MEQ TAB.ER PO SCH (09:36)
[2017-04-17] MEDS: Pregabalin CAP(*) 50 MG PO SCH ×3 (09:36→20:02)
[2017-04-17] MEDS: Folic Acid TAB* 1 MG PO SCH (09:37)
[2017-04-17] MEDS: Nystatin CREAM* 15 GM TUBE TOPICAL SCH ×2 (10:16→20:24)
[2017-04-17] MEDS: CLOBETASOL 0.05% TOPICAL SCH (10:16)
[2017-04-17] MEDS: HYDROCORTISONE 2.5% TOPICAL SCH ×3 (10:27→22:14)
--- NOTE | 2017-04-17 16:28 | PN ---
Subjective Date of Service: 04/17/17 Interval History: Patient seen and examined at bedside. Denies fever, chills, shortness of breath , chest discomfort, N/V/D. Pt states that his pain is controlled. Family History: Unchanged from Admission Social History: Unchanged from Admission Past Medical History: Unchanged from Admission Objective Active Medications: Acetaminophen (Tylenol Tab*) 650 mg PO Q6H PRN Reason: FEVER/PAIN Ascorbic Acid (Vitamin C Tab*) 500 mg PO DAILY [facility] Aspirin (Aspirin Ec Low Dose*) 81 mg PO DAILY [facility] Bisacodyl (Dulcolax Supp*) 10 mg [place] DAILY PRN Reason: CONSTIPATION Cholecalciferol (Vitamin D Tab*) 5,000 units PO DAILY [facility] Clobetasol Propionate (Clobetasol 0.05% Oint*) 1 applic TOPICAL DAILY [facility] Cyanocobalamin (Vitamin B12 Tab*) 1,000 mcg PO DAILY [facility] Diphenoxylate HCl/Atropine (Lomotil Tab*) 1 tab PO QID [facility] Docusate Sodium (Colace Cap*) 100 mg PO BID PRN Reason: CONSTIPATION Econazole Nitrate (Econazole 1 % Cream (Nf)) 1 applic TOPICAL 2100 [facility] Enoxaparin Sodium (Lovenox(*)) 40 mg SUBCUT Q24H [facility] Fentanyl (Duragesic Patch 75 Mcg/Hr*) 75 mcg TRANSDERM Q72H [facility] Ferrous Gluconate (Fergon Tab*) 324 mg PO BID [facility] Folic Acid (Folvite Tab*) 0.5 mg PO DAILY [facility] Furosemide (Lasix Tab*) 40 mg PO DAILY [facility] Heparin Sodium (Porcine) (Heparin Flush Picc/Ml/Cvc(*)) 1 ml FLUSH 0600,1800 [facility] Hydrocortisone (Hydrocortisone 2.5% Cream(Nf)) 1 applic TOPICAL TID [facility] Ceftriaxone Sodium 2 gm/ (Sodium Chloride) 100 mls @ 200 mls/hr IVPB DAILY [facility] Lactobacillus Rhamnosus (Culturelle*) 1 cap PO BID [facility] Metronidazole (Flagyl Tab*) 500 mg PO BID [facility] Nystatin (Nystatin Cream*) 1 applic TOPICAL BID [facility] Omeprazole (Prilosec Cap*) 40 mg PO DAILY@0600 [facility] Ondansetron HCl (Zofran Odt Tab*) 4 mg PO Q8H PRN Reason: NAUSEA/VOMITING Oxycodone HCl (Oxycodone Oral.Soln*) 10 mg PO AC [facility] Pharm[facility] Profile Note (Fentanyl Patch Check Q Shift) 1 note N/A 0700,1900 [facility] Potassium Chloride (Klor Con Er Tab*) 10 meq PO DAILY [facility] Pregabalin (Lyrica Cap(*)) 150 mg PO TID [facility] Zinc Sulfate (Zinc-220 Cap*) 220 mg PO DAILY [facility] Vital Signs 04/16/17 04/16/17 04/16/17 16:59 18:48 19:35 Temperature 99.2 F Pulse Rate 84 Respiratory 16 16 16 Rate Blood Pressure 125/67 (mmHg) O2 Sat by Pulse 96 Oximetry 04/17/17 04/17/17 04/17/17 00:06 04:10 08:05 Temperature 98.7 F 98.7 F Pulse Rate 84 80 Respiratory 16 17 16 Rate Blood Pressure 174/77 140/65 (mmHg) O2 Sat by Pulse 97 95 Oximetry 04/17/17 04/17/17 04/17/17 08:09 08:20 09:35 Temperature 97.4 F Pulse Rate 79 Respiratory 16 16 16 Rate Blood Pressure 161/64 (mmHg) O2 Sat by Pulse 97 Oximetry Oxygen Devices in Use Now: None Appearance: NAD, laying in bed Respiratory: Symmetrical Chest Expansion and Respiratory Effort, Clear to Auscultation Cardiovascular: NL Sounds; No Murmurs; No JVD, RRR Abdominal: NL Sounds; No Tenderness; No Distention Neurological: Alert and Oriented x 3, NL Muscle Strength and Tone Lines/Tubes/Other Access: Clean, Dry and Intact PICC Line - site benign Nutrition: Taking PO's Result Diagrams: 04/11/17 06:32 04/11/17 06:32 Assess/Plan/Problems-Billing Assessment: Mr. Merino is a 71 yo male with PMH significant for MATY, CKD stage 3, asthma, chronic pain and paraplegia chronically secondary to Ependymoma. Who presented with a large Stage IV sacral decubitus ulcer which has been debrided multiple times. Failed wound vac in PMRU and back inpatient. Plastic surgery consultation at [facility] for possible flap. - Patient Problems (1) Acute osteomyelitis of sacrum Code(s): M46.28 - OSTEOMYELITIS OF VERTEBRA, SACRAL AND SACROCOCCYGEAL REGION SNOMED Code(s): 543472615 Comment: - No evidence of new sepsis, CRP stable. - Continue Ceftriaxone and flagyl at current doses per ID. (2) Sacral decubitus ulcer, stage IV Code(s): L89.154 - PRESSURE ULCER OF SACRAL REGION, STAGE 4 SNOMED Code(s): 161964573 Comment: - Plastic surgery consultation to [facility] (Yassine Blankenship MD) today with Deedee () - Appreciate nutrition recommendations to support healing, attempt for 6 small protein rich meals daily and continue vitamins (Vitamin C). - Continue wound care per surgery recommendations, last debrided 04/[address] Harmon, recommend changed from Santyl to Medihoney. (3) Tinea corporis Code(s): B35.4 - TINEA CORPORIS SNOMED Code(s): 18735421 Comment: - Improving annular scaly lesion on hip consistent with tinea corporis. - Nystatin cream not effective against lesion. - Will trial patient's home antifungal cream. (4) Diarrhea Code(s): R19.7 - DIARRHEA, UNSPECIFIED SNOMED Code(s): 98609229 Comment: - BMs consistently loose per nursing staff, single formed stool. - Continued assiduous charlene-care. - Diarrhea Likely ABX associated. ID thinks not Cdiff. - Continue Flagyl, Probiotic, and Lomotil (5) Chronic indwelling Arriaga catheter Code(s): Z92.89 - PERSONAL HISTORY OF OTHER MEDICAL TREATMENT SNOMED Code(s): 054859082 Comment: - High risk of UTI - currently on ABX, no current evidence of UTI. (6) Neurogenic bladder Code(s): N31.9 - NEUROMUSCULAR DYSFUNCTION OF BLADDER, UNSPECIFIED SNOMED Code (s): 269279002 Comment: - With chronic indwelling urinary catheter (7) Neurogenic bowel Code(s): K59.2 - NEUROGENIC BOWEL, NOT ELSEWHERE CLASSIFIED SNOMED Code(s): 089637515 Comment: - Loose bowel movements with repositioning. Becoming more formed. - Frequent pericare to prevent skin breakdown. - Continue Flagyl and prn lomotil for diarrhea (8) CAD (coronary artery disease) Code(s): I25.10 - ATHSCL HEART DISEASE OF [place] CORONARY ARTERY W/O ANG PCTRS SNOMED Code(s): 81802795 Comment: - Asymptomatic - Continue ASA. (9) CKD (chronic kidney disease), stage III Code(s): N18.3 - CHRONIC KIDNEY DISEASE, STAGE 3 (MODERATE) SNOMED Code(s): 585815045 Comment: - Creatinine baseline, no acute exacerbation - Avoid nephrotoxic medications (10) Ependymoma Code(s): C71.9 - MALIGNANT NEOPLASM OF BRAIN, UNSPECIFIED SNOMED Code(s): 694048896 Comment: - To the spine (dx in patient's 20s) - With concurrent chronic back pain and inability to ambulate - s/p multiple surgeries - Back anatomy puts patient at much higher risk for pressure ulcer formation, as does high opiate requirements and fragility with easily acquired infections ( pneumonia / urinary tract infections). UTI's in particular are a high risk given his neurogenic bladder and indwelling arriaga catheter. (11) Chronic back pain Code(s): M54.9 - DORSALGIA, UNSPECIFIED; G89.29 - OTHER CHRONIC PAIN SNOMED Code(s): 088698843 Comment: - Secondary to ependymoma and sacral decub - Continue pregabalin, acetaminophen, oxycodone liquid to 10mg AC with one dose PRN for transfer, and Fentanyl patch at 75mcg. - Pain stable and tolerable with sitting. (12) HTN (hypertension) Code(s): I10 - ESSENTIAL (PRIMARY) HYPERTENSION SNOMED Code(s): 44611398 Comment: - SBP 120-170's - Continue lasix (13) MATY (obstructive sleep apnea) Code(s): G47.33 - OBSTRUCTIVE SLEEP APNEA (ADULT) (PEDIATRIC) SNOMED Code(s): 20144946 Comment: Continue home BiPAP use. (14) DVT prophylaxis Code(s): BFX0018 - SNOMED Code(s): 706464754 Comment: Lovenox TEDs in bed. (15) Full code status Code(s): Z78.9 - OTHER SPECIFIED HEALTH STATUS SNOMED Code(s): 189327241 Status and Disposition: Inpatient. Pending transfer to [facility] for possible skin flap in the next few weeks.
[2017-04-17] MEDS: Enoxaparin(*) 40 MG/0.4 ML SYR SUBCUT SCH (17:20)
[2017-04-17] MEDS: ECONAZOLE 1% TOPICAL SCH (20:24)
[2017-04-18] MEDS: Omeprazole CAP* 20 MG PO SCH (06:06)
[2017-04-18] MEDS: fentaNYL Patch Check Q Shift 1 NOTE SCH ×2 (07:21→18:42)
[2017-04-18] MEDS: oxyCODONE ORAL.SOLN* 5 MG/5 ML UDC PO SCH ×3 (08:07→17:56)
[2017-04-18] MEDS: Diphenoxylat/Atrop 2.5-0.025M* 1 TAB PO SCH ×4 (09:22→20:39)
[2017-04-18] MEDS: Aspirin EC Low Dose* 81 MG TAB.EC PO SCH (09:23)
[2017-04-18] MEDS: Cholecalciferol TAB* 1000 UNITS PO SCH (09:23)
[2017-04-18] MEDS: metroNIDAZOLE TAB* 250 MG PO SCH ×2 (09:23→20:37)
[2017-04-18] MEDS: Lactobacillus Acidophilu (GG)* 1 CAP CAP PO SCH (09:23)
[2017-04-18] MEDS: Cyanocobalamin TAB* 500 MCG PO SCH (09:23)
[2017-04-18] MEDS: Pregabalin CAP(*) 50 MG PO SCH ×3 (09:23→20:37)
[2017-04-18] MEDS: Furosemide TAB* 40 MG PO SCH (09:23)
[2017-04-18] MEDS: Zinc Sulfate CAP* 220 MG PO SCH (09:23)
[2017-04-18] MEDS: Ascorbic Acid TAB* 500 MG PO SCH (09:23)
[2017-04-18] MEDS: Potassium Chlor TAB* 10 MEQ TAB.ER PO SCH (09:23)
[2017-04-18] MEDS: Ferrous Gluconate TAB* 324 MG TAB PO SCH ×2 (09:23→20:40)
[2017-04-18] MEDS: Folic Acid TAB* 1 MG PO SCH (09:24)
[2017-04-18] MEDS: HYDROCORTISONE 2.5% TOPICAL SCH ×3 (09:27→22:26)
--- NOTE | 2017-04-18 10:49 | PN ---
Progress Note - Progress Note Date of Service: 04/18/17 SOAP: Subjective: CC: decubitus ulcer HPI: 71 year old man with sacral decubitus ulcer, appetite is good, no fever, rash, or diarrhea. Formed stool today. Objective: [] Vital Signs Temp 36.9 C 04/18/17 04:02 Pulse 71 04/18/17 04:02 Resp 16 04/18/17 09:23 BP 125/66 04/18/17 04:02 Pulse Ox 97 04/18/17 04:02 Intake & Output 04/17/17 04/18/17 04/18/17 18:59 06:59 18:59 Intake Total 590 225 Output Total 1000 Balance 590 -775 Intake: Oral 590 225 Output: Fischer 1000 Other: Date of Last Bowel 04/18/17 Movement # Bowel Movements 2 3 Estimated Stool Amount Medium Small Gen:awake, no distress HEENT:no thrush Heart:RRR no murmur Lungs:CTA BL Abd:+BS NTND soft Skin: no rash MSK: decubitus ulcer without surrounding erythema, minimal drainage Assessment: 1. acute osteomyelitis, sacrum 2. 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 elevated CRP Plan: 1. continue ceftriaxone and flagyl day 35, continue weekly CRP, CBC, CMP. Plastics procedure eventually.
[2017-04-18] MEDS: Nystatin CREAM* 15 GM TUBE TOPICAL SCH ×2 (10:56→20:32)
[2017-04-18] MEDS: CLOBETASOL 0.05% TOPICAL SCH (10:56)
[2017-04-18] MEDS: Enoxaparin(*) 40 MG/0.4 ML SYR SUBCUT SCH (17:56)
--- NOTE | 2017-04-18 18:22 | PN ---
Subjective Date of Service: 04/18/17 Interval History: Patient seen and examined at bedside. Denies fever, chills, shortness of breath , chest discomfort, N/V/D. Family History: Unchanged from Admission Social History: Unchanged from Admission Past Medical History: Unchanged from Admission Objective Active Medications: Acetaminophen (Tylenol Tab*) 650 mg PO Q6H PRN Reason: FEVER/PAIN Ascorbic Acid (Vitamin C Tab*) 500 mg PO DAILY [facility] Aspirin (Aspirin Ec Low Dose*) 81 mg PO DAILY [facility] Bisacodyl (Dulcolax Supp*) 10 mg [place] DAILY PRN Reason: CONSTIPATION Cholecalciferol (Vitamin D Tab*) 5,000 units PO DAILY [facility] Clobetasol Propionate (Clobetasol 0.05% Oint*) 1 applic TOPICAL DAILY [facility] Cyanocobalamin (Vitamin B12 Tab*) 1,000 mcg PO DAILY [facility] Diphenoxylate HCl/Atropine (Lomotil Tab*) 1 tab PO QID [facility] Docusate Sodium (Colace Cap*) 100 mg PO BID PRN Reason: CONSTIPATION Econazole Nitrate (Econazole 1 % Cream (Nf)) 1 applic TOPICAL 2100 [facility] Enoxaparin Sodium (Lovenox(*)) 40 mg SUBCUT Q24H [facility] Fentanyl (Duragesic Patch 75 Mcg/Hr*) 75 mcg TRANSDERM Q72H [facility] Ferrous Gluconate (Fergon Tab*) 324 mg PO BID [facility] Folic Acid (Folvite Tab*) 0.5 mg PO DAILY [facility] Furosemide (Lasix Tab*) 40 mg PO DAILY [facility] Heparin Sodium (Porcine) (Heparin Flush Picc/Ml/Cvc(*)) 1 ml FLUSH 0600,1800 [facility] Hydrocortisone (Hydrocortisone 2.5% Cream(Nf)) 1 applic TOPICAL TID [facility] Ceftriaxone Sodium 2 gm/ (Sodium Chloride) 100 mls @ 200 mls/hr IVPB DAILY [facility] Lactobacillus Rhamnosus (Culturelle*) 1 cap PO BID [facility] Metronidazole (Flagyl Tab*) 500 mg PO BID [facility] Nystatin (Nystatin Cream*) 1 applic TOPICAL BID [facility] Omeprazole (Prilosec Cap*) 40 mg PO DAILY@0600 [facility] Ondansetron HCl (Zofran Odt Tab*) 4 mg PO Q8H PRN Reason: NAUSEA/VOMITING Oxycodone HCl (Oxycodone Oral.Soln*) 10 mg PO AC [facility] Pharmacy Profile Note (Fentanyl Patch Check Q Shift) 1 note N/A 0700,1900 [facility] Potassium Chloride (Klor Con Er Tab*) 10 meq PO DAILY [facility] Pregabalin (Lyrica Cap(*)) 150 mg PO TID [facility] Zinc Sulfate (Zinc-220 Cap*) 220 mg PO DAILY [facility] Vital Signs 04/17/17 04/17/17 04/17/17 20:00 20:02 20:31 Temperature 99.3 F Pulse Rate 89 Respiratory 16 16 16 Rate Blood Pressure 138/53 (mmHg) O2 Sat by Pulse 96 Oximetry 04/17/17 04/17/17 04/18/17 22:02 22:31 00:13 Temperature 98.5 F Pulse Rate 79 Respiratory 16 16 16 Rate Blood Pressure 162/76 (mmHg) O2 Sat by Pulse 96 Oximetry 04/18/17 04/18/17 04/18/17 04:02 07:42 08:05 Temperature 98.5 F 98.5 F Pulse Rate 71 72 Respiratory 16 16 16 Rate Blood Pressure 125/66 119/49 (mmHg) O2 Sat by Pulse 97 97 Oximetry 04/18/17 04/18/17 04/18/17 11:32 11:54 13:54 Temperature 98.2 F Pulse Rate 83 Respiratory 17 16 16 Rate Blood Pressure 140/54 (mmHg) O2 Sat by Pulse 96 Oximetry Oxygen Devices in Use Now: None Appearance: NAD, sitting up on the side of the bed Ears/Nose/Mouth/Throat: Mucous Membranes Moist Respiratory: Symmetrical Chest Expansion and Respiratory Effort, Clear to Auscultation Cardiovascular: NL Sounds; No Murmurs; No JVD, RRR Abdominal: NL Sounds; No Tenderness; No Distention Neurological: Alert and Oriented x 3, NL Muscle Strength and Tone Lines/Tubes/Other Access: Clean, Dry and Intact PICC Line - site benign Nutrition: Taking PO's Result Diagrams: 04/11/17 06:32 04/11/17 06:32 Assess/Plan/Problems-Billing Assessment: Mr. Merino is a 71 yo male with PMH significant for MATY, CKD stage 3, asthma, chronic pain and paraplegia chronically secondary to Ependymoma. Who presented with a large Stage IV sacral decubitus ulcer which has been debrided multiple times. Failed wound vac in [facility] and back inpatient. Plastic surgery consultation at [facility] for possible flap. - Patient Problems (1) Acute osteomyelitis of sacrum Code(s): M46.28 - OSTEOMYELITIS OF VERTEBRA, SACRAL AND SACROCOCCYGEAL REGION SNOMED Code(s): 822668299 Comment: - No evidence of new sepsis, CRP stable. - Continue Ceftriaxone and flagyl at current doses per ID. (2) Sacral decubitus ulcer, stage IV Code(s): L89.154 - PRESSURE ULCER OF SACRAL REGION, STAGE 4 SNOMED Code(s): 109267068 Comment: - Plastic surgery consultation with Dr. Yassine Blankenship at [facility], plan for surgery on 05/02 - Appreciate nutrition recommendations to support healing, attempt for 6 small protein rich meals daily and continue vitamins (Vitamin C). - Continue wound care per surgery recommendations, last debrided 04/[address] Harmon, recommend changed from Santyl to Medihoney. (3) Tinea corporis Code(s): B35.4 - TINEA CORPORIS SNOMED Code(s): 58599888 Comment: - Improving annular scaly lesion on hip consistent with tinea corporis. - Nystatin cream not effective against lesion. - Will trial patient's home antifungal cream. (4) Diarrhea Code(s): R19.7 - DIARRHEA, UNSPECIFIED SNOMED Code(s): 09736196 Comment: - BMs consistently loose per nursing staff, single formed stool. - Continued assiduous charlene-care. - Diarrhea Likely ABX associated. ID thinks not Cdiff. - Continue Flagyl, Probiotic, and Lomotil (5) Chronic indwelling Arriaga catheter Code(s): Z92.89 - PERSONAL HISTORY OF OTHER MEDICAL TREATMENT SNOMED Code(s): 777196445 Comment: - High risk of UTI - currently on ABX, no current evidence of UTI. (6) Neurogenic bladder Code(s): N31.9 - NEUROMUSCULAR DYSFUNCTION OF BLADDER, UNSPECIFIED SNOMED Code (s): 650051717 Comment: - With chronic indwelling urinary catheter (7) Neurogenic bowel Code(s): K59.2 - NEUROGENIC BOWEL, NOT ELSEWHERE CLASSIFIED SNOMED Code(s): 656911267 Comment: - Loose bowel movements with repositioning. Becoming more formed. - Frequent pericare to prevent skin breakdown. - Continue Flagyl and prn lomotil for diarrhea (8) CAD (coronary artery disease) Code(s): I25.10 - ATHSCL HEART DISEASE OF [place] CORONARY ARTERY W/O ANG PCTRS SNOMED Code(s): 25958281 Comment: - Asymptomatic - Continue ASA. (9) CKD (chronic kidney disease), stage III Code(s): N18.3 - CHRONIC KIDNEY DISEASE, STAGE 3 (MODERATE) SNOMED Code(s): 737900659 Comment: - Creatinine baseline, no acute exacerbation - Avoid nephrotoxic medications (10) Ependymoma Code(s): C71.9 - MALIGNANT NEOPLASM OF BRAIN, UNSPECIFIED SNOMED Code(s): 024480531 Comment: - To the spine (dx in patient's 20s) - With concurrent chronic back pain and inability to ambulate - s/p multiple surgeries - Back anatomy puts patient at much higher risk for pressure ulcer formation, as does high opiate requirements and fragility with easily acquired infections ( pneumonia / urinary tract infections). UTI's in particular are a high risk given his neurogenic bladder and indwelling arriaga catheter. (11) Chronic back pain Code(s): M54.9 - DORSALGIA, UNSPECIFIED; G89.29 - OTHER CHRONIC PAIN SNOMED Code(s): 511183611 Comment: - Secondary to ependymoma and sacral decub - Continue pregabalin, acetaminophen, oxycodone liquid to 10mg AC with one dose PRN for transfer, and Fentanyl patch at 75mcg. - Pain stable and tolerable with sitting. (12) HTN (hypertension) Code(s): I10 - ESSENTIAL (PRIMARY) HYPERTENSION SNOMED Code(s): 81789079 Comment: - SBP 100-160's - Continue lasix (13) MATY (obstructive sleep apnea) Code(s): G47.33 - OBSTRUCTIVE SLEEP APNEA (ADULT) (PEDIATRIC) SNOMED Code(s): 31045336 Comment: Continue home BiPAP use. (14) DVT prophylaxis Code(s): [id number] - SNOMED Code(s): 947885197 Comment: Lovenox TEDs in bed. (15) Full code status Code(s): Z78.9 - OTHER SPECIFIED HEALTH STATUS SNOMED Code(s): 507328229 Status and Disposition: Inpatient. Pending transfer to [facility] for possible skin flap in the next few weeks.
[2017-04-18] MEDS: fentaNYL PATCH 75 MCG/HR* 75 MCG TRANSDERM SCH (18:41)
[2017-04-18] MEDS: ECONAZOLE 1% TOPICAL SCH (20:32)
[2017-04-19] MEDS: Lactobacillus Acidophilu (GG)* 1 CAP CAP PO SCH ×2 (00:32→08:14)
[2017-04-19] MEDS: Omeprazole CAP* 20 MG PO SCH (05:45)
[2017-04-19 06:21] LABS: Hematocrit 33 % (42-52); Hemoglobin 10.8 g/dl (14.0-18.0); Mean Corpuscular HGB Conc 33 g/dl (31-36); Mean Corpuscular Hemoglobin 28 pg (27-31); Mean Corpuscular Volume 83 fL (80-94); Mean Platelet Volume 8 um3 (7.4-10.4); Red Blood Count 3.91 10^6/ul (4.0-5.4); Red Cell Distribution Width 19 % (10.5-15); White Blood Count 7.9 10^3/ul (3.5-10.8)
[2017-04-19 06:35] LABS: BUN/Creatinine Ratio 32.5 (8-20); Calcium 9.6 mg/dL (8.6-10.3); EGFR African American 74.6 (>60); Potassium 3.8 mmol/L (3.5-5.0)
[2017-04-19] MEDS: fentaNYL Patch Check Q Shift 1 NOTE SCH (06:47)
[2017-04-19] MEDS: oxyCODONE ORAL.SOLN* 5 MG/5 ML UDC PO SCH ×2 (08:11→11:40)
[2017-04-19] MEDS: Cholecalciferol TAB* 1000 UNITS PO SCH (08:12)
[2017-04-19] MEDS: Aspirin EC Low Dose* 81 MG TAB.EC PO SCH (08:12)
[2017-04-19] MEDS: Diphenoxylat/Atrop 2.5-0.025M* 1 TAB PO SCH ×2 (08:13→14:30)
[2017-04-19] MEDS: Cyanocobalamin TAB* 500 MCG PO SCH (08:14)
[2017-04-19] MEDS: Zinc Sulfate CAP* 220 MG PO SCH (08:14)
[2017-04-19] MEDS: Furosemide TAB* 40 MG PO SCH (08:14)
[2017-04-19] MEDS: Pregabalin CAP(*) 50 MG PO SCH ×2 (08:14→14:29)
[2017-04-19] MEDS: Ferrous Gluconate TAB* 324 MG TAB PO SCH (08:15)
[2017-04-19] MEDS: Potassium Chlor TAB* 10 MEQ TAB.ER PO SCH (08:15)
[2017-04-19] MEDS: metroNIDAZOLE TAB* 250 MG PO SCH (08:16)
[2017-04-19] MEDS: Ascorbic Acid TAB* 500 MG PO SCH (08:16)
[2017-04-19] MEDS: Folic Acid TAB* 1 MG PO SCH (08:17)
[2017-04-19] MEDS: Nystatin CREAM* 15 GM TUBE TOPICAL SCH (09:04)
[2017-04-19 10:05] LABS: C Reactive Protein 23.39 mg/L (< 5.00)
[2017-04-19] MEDS: Hydrocortisone 1% CREAM* 30 GM TUBE TOPICAL SCH ×2 (10:51→14:32)
[2017-04-19] MEDS: CLOBETASOL 0.05% TOPICAL SCH (10:52)
[2017-04-19] MEDS: HYDROCORTISONE 2.5% TOPICAL SCH ×2 (10:55→14:34)
[2017-04-19 16:26] VITALS: BP 159/71
--- NOTE | 2017-04-19 21:03 | PN ---
Subjective Date of Service: 04/19/17 Interval History: Patient seen and examined at bedside. Denies fever, chills, shortness of breath , chest discomfort, N/V/D. No complaints, Pt states that his pain is controlled. Family History: Unchanged from Admission Social History: Unchanged from Admission Past Medical History: Unchanged from Admission Objective Vital Signs 04/18/17 04/18/17 04/19/17 22:15 22:39 00:20 Temperature 98.2 F Pulse Rate 74 Respiratory 16 16 16 Rate Blood Pressure 134/63 (mmHg) O2 Sat by Pulse 97 Oximetry 04/19/17 04/19/17 04/19/17 04:02 07:25 08:11 Temperature 98.1 F 98.0 F Pulse Rate 73 69 Respiratory 16 16 16 Rate Blood Pressure 130/63 99/35 (mmHg) O2 Sat by Pulse 98 97 Oximetry 04/19/17 04/19/17 04/19/17 10:11 11:40 12:15 Temperature 98.4 F Pulse Rate 73 Respiratory 16 16 14 Rate Blood Pressure 113/55 (mmHg) O2 Sat by Pulse 98 Oximetry 04/19/17 15:58 Temperature 97.2 F Pulse Rate 77 Respiratory 18 Rate Blood Pressure 159/71 (mmHg) O2 Sat by Pulse 97 Oximetry Oxygen Devices in Use Now: None Appearance: NAD, laying in bed Ears/Nose/Mouth/Throat: Mucous Membranes Moist Respiratory: Symmetrical Chest Expansion and Respiratory Effort, Clear to Auscultation Cardiovascular: NL Sounds; No Murmurs; No JVD, RRR Abdominal: NL Sounds; No Tenderness; No Distention Extremities: No Edema Neurological: Alert and Oriented x 3 - , forgetful Lines/Tubes/Other Access: Clean, Dry and Intact Arriaga - patent, urine clear yellow, Clean, Dry and Intact PICC Line - site beign Nutrition: Taking PO's Result Diagrams: 04/19/17 05:53 04/19/17 05:53 Additional Lab and Data: . Assess/Plan/Problems-Billing Assessment: Mr. Merino is a 71 yo male with PMH significant for MATY, CKD stage 3, asthma, chronic pain and paraplegia chronically secondary to Ependymoma. Who presented with a large Stage IV sacral decubitus ulcer which has been debrided multiple times. Failed wound vac in [place] and back inpatient. Plastic surgery consultation at [facility] for possible flap. - Patient Problems (1) Acute osteomyelitis of sacrum Code(s): M46.28 - OSTEOMYELITIS OF VERTEBRA, SACRAL AND SACROCOCCYGEAL REGION SNOMED Code(s): 518353677 Comment: - No evidence of new sepsis, CRP stable. - Continue Ceftriaxone and flagyl at current doses per ID. (2) Sacral decubitus ulcer, stage IV Code(s): L89.154 - PRESSURE ULCER OF SACRAL REGION, STAGE 4 SNOMED Code(s): 615785634 Comment: - Plastic surgery consultation with Dr. Yassine Blankenship at [facility], plan for surgery on 05/02 - Appreciate nutrition recommendations to support healing, attempt for 6 small protein rich meals daily and continue vitamins (Vitamin C). - Continue wound care per surgery recommendations, last debrided 04/[address] Harmon, recommend changed from Santyl to Medihoney. (3) Tinea corporis Code(s): B35.4 - TINEA CORPORIS SNOMED Code(s): 13890359 Comment: - Improving annular scaly lesion on hip consistent with tinea corporis. - Nystatin cream not effective against lesion. - Will trial patient's home antifungal cream. (4) Diarrhea Code(s): R19.7 - DIARRHEA, UNSPECIFIED SNOMED Code(s): 97453197 Comment: - BMs consistently loose per nursing staff, single formed stool. - Continued assiduous charlene-care. - Diarrhea Likely ABX associated. ID thinks not Cdiff. - Continue Flagyl, Probiotic, and Lomotil (5) Chronic indwelling Arriaga catheter Code(s): Z92.89 - PERSONAL HISTORY OF OTHER MEDICAL TREATMENT SNOMED Code(s): 882755045 Comment: - High risk of UTI - currently on ABX, no current evidence of UTI. (6) Neurogenic bladder Code(s): N31.9 - NEUROMUSCULAR DYSFUNCTION OF BLADDER, UNSPECIFIED SNOMED Code (s): 606971295 Comment: - With chronic indwelling urinary catheter (7) Neurogenic bowel Code(s): K59.2 - NEUROGENIC BOWEL, NOT ELSEWHERE CLASSIFIED SNOMED Code(s): 304114340 Comment: - Loose bowel movements with repositioning. Becoming more formed. - Frequent pericare to prevent skin breakdown. - Continue Flagyl and prn lomotil for diarrhea (8) CAD (coronary artery disease) Code(s): I25.10 - ATHSCL HEART DISEASE OF [place] CORONARY ARTERY W/O ANG PCTRS SNOMED Code(s): 50306766 Comment: - Asymptomatic - Continue ASA. (9) CKD (chronic kidney disease), stage III Code(s): N18.3 - CHRONIC KIDNEY DISEASE, STAGE 3 (MODERATE) SNOMED Code(s): 274685516 Comment: - Creatinine baseline, no acute exacerbation - Avoid nephrotoxic medications (10) Ependymoma Code(s): C71.9 - MALIGNANT NEOPLASM OF BRAIN, UNSPECIFIED SNOMED Code(s): 055657611 Comment: - To the spine (dx in patient's 20s) - With concurrent chronic back pain and inability to ambulate - s/p multiple surgeries - Back anatomy puts patient at much higher risk for pressure ulcer formation, as does high opiate requirements and fragility with easily acquired infections ( pneumonia / urinary tract infections). UTI's in particular are a high risk given his neurogenic bladder and indwelling arriaga catheter. (11) Chronic back pain Code(s): M54.9 - DORSALGIA, UNSPECIFIED; G89.29 - OTHER CHRONIC PAIN SNOMED Code(s): 619572631 Comment: - Secondary to ependymoma and sacral decub - Continue pregabalin, acetaminophen, oxycodone liquid to 10mg AC with one dose PRN for transfer, and Fentanyl patch at 75mcg. - Pain stable and tolerable with sitting. (12) HTN (hypertension) Code(s): I10 - ESSENTIAL (PRIMARY) HYPERTENSION SNOMED Code(s): 30891824 Comment: - SBP 100-160's - Continue lasix (13) MATY (obstructive sleep apnea) Code(s): G47.33 - OBSTRUCTIVE SLEEP APNEA (ADULT) (PEDIATRIC) SNOMED Code(s): 98026333 Comment: Continue home BiPAP use. (14) DVT prophylaxis Code(s): [id number] - SNOMED Code(s): 663223383 Comment: Lovenox TEDs in bed. (15) Full code status Code(s): Z78.9 - OTHER SPECIFIED HEALTH STATUS SNOMED Code(s): 749345671 Status and Disposition: Inpatient. Pending transfer to [facility] for possible skin flap in the next few weeks. Stable for discharge to Swing bed status today.
--- NOTE | 2017-04-20 03:24 | DS ---
CC: Molly Griffiths MD * DISCHARGE SUMMARY/HISTORY & PHYISICAL: DATE OF ADMISSION: 03/29/17 DATE OF DISCHARGE: 04/19/17 - To swing bed status. ATTENDING PHYSICIAN: Yg Navarro MD * (dictated by Cony Cuellar NP). PRIMARY CARE PROVIDER: Molly Griffiths MD PRIMARY DIAGNOSES: 1. Acute osteomyelitis of the sacrum. 2. Stage 4 sacral decubitus ulcer. 3. Sepsis secondary to decubitus ulcer, now resolved. 4. Diarrhea associated with antibiotics (not Clostridium difficile). SECONDARY DIAGNOSES: 1. Ependymoma. 2. Neurogenic bowel and bladder. 3. History of multiple back surgeries. 4. Obstructive sleep apnea, on home BiPAP. 5. Chronic renal failure, stage 3. 6. Intrinsic asthma. CONSULTATIONS WHILE IN THE HOSPITAL: 1. Jeevan Sexton MD with Infectious Disease. 2. Stanislaw Harmon MD with General Surgery. PROCEDURES WHILE IN THE HOSPITAL: Status post bedside debridement by Dr. Harmon on 04/11/17. CURRENT HOSPITAL MEDICATIONS: 1. Acetaminophen 650 mg oral every 6 hours as needed for fever or pain. 2. Ascorbic acid 500 mg oral daily. 3. Aspirin 81 mg oral daily. 4. Dulcolax suppository 10 mg p.r. daily as needed for constipation. 5. Vitamin D 5000 units oral daily. 6. Vitamin B12, 1000 mcg oral daily. 7. Lomotil 2.5/0.025 mg 1 tablet oral 4 times daily. 8. Colace 100 mg oral twice daily as needed for constipation. 9. Econazole 1% cream apply topical daily between toes and to the rash on hip. 10. Lovenox 40 mg subcutaneous daily. 11. Ferrous gluconate 324 mg oral twice daily. 12. Folic acid 0.5 mg oral daily. 13. Furosemide 40 mg oral daily. 14. Heparin flush 1 mg flush IV twice daily. 15. Hydrocortisone 2.5% cream apply topical 3 times daily to hemorrhoids. 16. Lactobacillus 1 capsule oral twice daily. 17. Nystatin applied topical twice daily to groin. 18. Omeprazole 40 mg oral daily. 19. Zofran 4 mg oral every 8 hours as needed for nausea or vomiting. 20. Potassium chloride 10 mEq oral daily. 21. Pregabalin 150 mg oral 3 times daily. 22. Zinc sulfate 220 mg oral daily. 23. Ceftriaxone 2 g intravenous daily. 24. Fentanyl patch 75 mcg transdermal every 3 days. 25. Metronidazole 500 mg oral twice daily. 26. Oxycodone oral solution 10 mg oral with meals. HISTORY OF PRESENT ILLNESS: Mr. 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 The patient was initially brought to the hospital for an acute stay on 03/10/17 when he was found to be febrile and confused. The patient's was having difficulty keeping his bedsores clean, as the patient was having diarrhea at home. She brought the patient to the emergency room for evaluation, at which time he was admitted for probable sepsis that was felt to be secondary to his infected sacral decubitus ulcer. The patient was placed on broad spectrum antibiotics, was seen in consultations by General Surgery and Dr. Sexton with Infectious Disease. The patient underwent surgical debridement on 3 occasions and had a wound VAC placed. The patient was positive for C. diff, but Dr. Sexton felt that was a false positive given that the patient's stools were becoming more formed. The patient was continued on IV Zosyn. During the patient's acute stay, he became more weak, losing a great deal of strength in his upper body, was no longer able to transfer out of bed. He was evaluated by Physiatry and felt that he could benefit from an inpatient rehab admission to work on transfers and sitting balance, so that he may go home. In addition, the plan was to train his in helping to manage the patient in bed and keeping his sacral area clean. The patient was discharged from acute stay to the rehabilitation unit on 03/21/17. The patient remained on the rehabilitation unit through 03/29/17. During his stay, his wound did not change significantly with a wound VAC. His dressing was then changed to wet-to-dry normal packing dressing for wound care. The patient was also noted to have a rash over his skin that appeared either allergic or fungal in appearance. He was given steroid creams, triamcinolone and later on antifungal creams were tried. Due to the amount of pain the patient was having, he was limitedly able to sit up. The patient was able to make some gains in his rehabilitation and strength, but the patient continued to remain totally dependent on lower body dressing. Due to the patient's continued diarrhea, he was having a lot of difficulty toileting himself and was not able to make gains in this area. He continued to have an indwelling urinary catheter in place. It was felt ultimately that the patient should be transferred back to an acute stay so the patient could undergo continued nursing care and assist the and learning how to care for him at home. The patient was readmitted as an acute inpatient on 03/29/17 to receive ongoing wound care and engage in ongoing rehabilitation effort for the ultimate goal of the patient returning to an ambulatory environment. The patient was requiring a level of care that was not possible to deliver with his current home resources. Mr. Merino was also felt to be depressed and debilitated, but otherwise at his baseline. They were able to achieve an effective pain regimen. The patient also required an aggressive turning and repositioning schedule. During his acute stay, he last had a surgical bedside debridement done of his stage 4 sacral wound on 04/11/[address] Harmon at which time his dressings were changed from Santyl to Medihoney. The patient was continued on IV ceftriaxone and oral Flagyl per infectious disease recommendations. The patient continued to be treated for tinea corporis with his home antifungal cream. It was felt that the patient's diarrhea was likely due to antibiotics and not C. diff. He was continued on Flagyl, probiotics and Lomotil. He was continued with this chronic indwelling Fischer catheter with last change of his catheter being on 04/09/17. The patient's chronic kidney disease appeared to be at baseline. Again, his chronic back pain appeared to be managed with a regimen of pregabalin, acetaminophen, oxycodone and a fentanyl patch. The patient was able to sit on the side of the bed for meals, was working on transferring with his . The patient's had a phone consultation with Dr. Yassine Blankenship with Plastic Surgery at [facility] who plans to admit the patient on 05/02/17 for an incision and debridement flap closure of his sacral decubitus and wound VAC placement. It was decided that the patient was stable for discharge to swing bed status. Mr. Merino is stable for discharge to swing bed status today. Vital signs are as follows: Temperature 97.2, heart rate 77, respiratory rate 18, O2 sat 97% on room air, blood pressure 159/71. DISCHARGE PLAN: Mr. Merino will be discharged to swing bed status. He will be activity as tolerated with assist to a chair. He should sit up for no longer than 45 minutes at a time. He should be out of bed at least once daily as tolerated. He should continue OT and PT. As far as the patient's acute sacral osteomyelitis, he will be continued on ceftriaxone. Please see the assessment/ plan below for full details. IMPRESSION: Mr. 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 ASSESSMENT/PLAN: 1. Acute osteomyelitis of the sacrum. Continue IV ceftriaxone and Flagyl per infectious disease recommendations. 2. Stage 4 sacral decubitus ulcer. The plan is for the patient to be transferred on 05/02/17 for an incision and debridement, flap closure and wound VAC placement with Dr. Yassine Blankenship at [facility]. The patient will be continued on 6 small protein-rich meals daily and continued on his vitamins, including vitamin C. Will continue the patient's wound care per Surgery recommendations, which include Medihoney gel to the sacral wound bed and hidalgo of the ulcer twice daily in addition to pack with a dry Kerlix gauze and cover with an ABD pad. We will continue to defer any questions regarding wound care to Dr. Harmon. The patient will continue to be followed by the wound clinic for weekly wound measurements. This morning, the patient's wound is 9 cm x 5.3 cm x 3.9 cm at the deepest point. The periwound skin that was previously excoriated at base of the wound at approximately 6 p.m. has since healed. There was a thin line of maceration noted at the very edge of the wound periphery. The wound bed was approximately 75% slough and 25% red granulation with exposed bone to the medial side of the wound. Undermining noted from 12 p.m. to 10 p.m. going clockwise with a maximum distance of 1 cm. 2. Tinea corporis. The patient has improving scaly lesion to his hip. We will continue the patient's home antifungal. 3. Physical deconditioning. The patient will continue to receive physial therapy and occupational therapy in addition to mobility training with the in preparation for discharge to home. 4. Diarrhea. Will continue assiduous perineum care in addition to Flagyl probiotics and Lomotil. The patient's bowel movements are becoming less frequent and more soft. 5. Chronic indwelling urinary catheter secondary to neurogenic bladder. The patient will be continued on his chronic indwelling urinary catheter. He has no signs of urinary tract infection at this time. 6. Neurogenic bowel. The patient's bowel movements are becoming more formed. He requires frequent charlene care to prevent skin breakdown. Will be continued on Flagyl and p.r.n. Lomotil for diarrhea. 7. History of coronary artery disease. The patient is currently asymptomatic. He will be continued on his home aspirin. 8. Chronic kidney disease stage 3. The patient appears to be at his baseline. Will avoid nephrotoxic medications. 9. Ependymoma. Will continue the patient on his current pain regimen. The patient's back anatomy puts him at a much higher risk for pressure ulcer formation. Again, the patient will have aggressive turning and positioning. 10. Chronic pain secondary to ependymoma and sacral decubitus. The patient will be continued on Lyrica, acetaminophen, oxycodone and a fentanyl patch. 11. Hypertension. The patient's blood pressures have been mostly normotensive , he will be continued on Lasix. 12. Obstructive sleep apnea. The patient will be continued on his home BiPAP. 13. Fluids, electrolytes and nutrition: The patient will be on a regular diet with a goal of 6 small protein-rich meals daily. 14. Code status: Full code. 15. DVT prophylaxis: The patient is at high risk and will be continued on Lovenox and NIKKI stockings. 16. Disposition: Inpatient for swing bed status. TIME SPENT: Time for this discharge and admission H and P was approximately 75 minutes, greater than half of that was spent with the patient discussing the discharge plans, his current medication regimen, medical history, the events leading up to his arrival, his current hospital stay and performing a physical examination. The case has been reviewed with the attending, Dr. Navarro, who agrees with the plan of care. KAHLIL PEREIRA [id number]/[facility] #: [id number] [place]
== END 2017-04-19 17:00 | disposition swing bed (61) | DRG 463 ==
LOC: SSU 17:50
PROVIDERS: ADMIT Internal Medicine; ATTEND Internal Medicine
PROC: 0JB70ZZ Excision of Back Subcutaneous Tissue and Fascia, Open Approach (ICD-10-PCS; principal; 2017-04-06)
DX: M46.28 Osteomyelitis of vertebra, sacral and sacrococcygeal region (principal); L89.154 Pressure ulcer of sacral region, stage 4; C41.2 Malignant neoplasm of vertebral column; G82.20 Paraplegia, unspecified; K59.2 Neurogenic bowel, not elsewhere classified; L89.629 Pressure ulcer of left heel, unspecified stage; L89.619 Pressure ulcer of right heel, unspecified stage; E86.0 Dehydration; M31.9 Necrotizing vasculopathy, unspecified; B35.4 Tinea corporis; G47.33 Obstructive sleep apnea (adult) (pediatric); N18.3 Chronic kidney disease, stage 3 (moderate); J45.909 Unspecified asthma, uncomplicated; M54.9 Dorsalgia, unspecified; G89.29 Other chronic pain; I25.10 Atherosclerotic heart disease of native coronary artery without angina pectoris; R19.7 Diarrhea, unspecified; Z79.82 Long term (current) use of aspirin; Z79.01 Long term (current) use of anticoagulants; I12.9 Hypertensive chronic kidney disease with stage 1 through stage 4 chronic kidney disease, or unspecified chronic kidney disease; K21.9 Gastro-esophageal reflux disease without esophagitis
CPT/HCPCS: 36415; 80048; 80053; 85025; 85027; 86140; 97530; A9270-GY; J0696; J1650

== ENCOUNTER 2017-04-19 16:16 | Inpatient (IN) | payer MEDICARE ==
[2017-04-19] MEDS: oxyCODONE ORAL.SOLN* 5 MG/5 ML UDC PO SCH (18:43)
[2017-04-19] MEDS: Diphenoxylat/Atrop 2.5-0.025M* 1 TAB PO SCH ×2 (18:45→22:31)
[2017-04-19] MEDS ORDERED: Acetaminophen TAB* 325 MG PO PRN (20:20)
[2017-04-19] MEDS ORDERED: Docusate CAP* 100 MG PO PRN (20:20)
[2017-04-19] MEDS ORDERED: Ondansetron ODT TAB* 4 MG PO PRN (20:20)
[2017-04-19] MEDS ORDERED: Bisacodyl SUPP* 10 MG SUPP PR PRN (20:27)
[2017-04-19] MEDS ORDERED: Hydrocortisone 1% CREAM* 30 GM TUBE TOPICAL SCH (21:00)
[2017-04-19] MEDS ORDERED: fentaNYL PATCH 75 MCG/HR* 75 MCG TRANSDERM SCH (21:00)
[2017-04-19] MEDS: Pregabalin CAP(*) 50 MG PO SCH (22:30)
[2017-04-19] MEDS: Lactobacillus Acidophilu (GG)* 1 CAP CAP PO SCH (22:31)
[2017-04-19] MEDS: Ferrous Gluconate TAB* 324 MG TAB PO SCH (22:31)
[2017-04-19] MEDS: metroNIDAZOLE TAB* 250 MG PO SCH (22:31)
[2017-04-19] MEDS: Enoxaparin(*) 40 MG/0.4 ML SYR SUBCUT SCH (22:33)
[2017-04-19] MEDS: Nystatin CREAM* 15 GM TUBE TOPICAL SCH (22:36)
[2017-04-19] MEDS: Econazole 1% CREAM (NF) 1 TUBE TOPICAL SCH (22:36)
[2017-04-19] MEDS ORDERED: fentaNYL Patch Check Q Shift 1 NOTE SCH (23:00)
[2017-04-20] MEDS: Omeprazole CAP* 20 MG PO SCH (05:55)
[2017-04-20] MEDS: fentaNYL Patch Check Q Shift 1 NOTE SCH ×2 (07:00→18:44)
[2017-04-20] MEDS: oxyCODONE ORAL.SOLN* 5 MG/5 ML UDC PO SCH ×3 (08:22→17:11)
[2017-04-20] MEDS: Cholecalciferol TAB* 1000 UNITS PO SCH (09:38)
[2017-04-20] MEDS: Aspirin EC Low Dose* 81 MG TAB.EC PO SCH (09:39)
[2017-04-20] MEDS: Zinc Sulfate CAP* 220 MG PO SCH (09:39)
[2017-04-20] MEDS: Ferrous Gluconate TAB* 324 MG TAB PO SCH ×2 (09:39→20:55)
[2017-04-20] MEDS: Folic Acid TAB* 1 MG PO SCH (09:39)
[2017-04-20] MEDS: Diphenoxylat/Atrop 2.5-0.025M* 1 TAB PO SCH ×4 (09:39→20:55)
[2017-04-20] MEDS: Cyanocobalamin TAB* 500 MCG PO SCH (09:39)
[2017-04-20] MEDS: Furosemide TAB* 40 MG PO SCH (09:40)
[2017-04-20] MEDS: Lactobacillus Acidophilu (GG)* 1 CAP CAP PO SCH ×2 (09:40→20:55)
[2017-04-20] MEDS: Pregabalin CAP(*) 50 MG PO SCH ×3 (09:40→20:55)
[2017-04-20] MEDS: Potassium Chlor TAB* 10 MEQ TAB.ER PO SCH (09:40)
[2017-04-20] MEDS: metroNIDAZOLE TAB* 250 MG PO SCH ×2 (09:40→20:55)
[2017-04-20] MEDS: Ascorbic Acid TAB* 500 MG PO SCH (09:40)
[2017-04-20] MEDS: HYDROCORTISONE 2.5% TOPICAL SCH ×3 (09:44→19:57)
[2017-04-20] MEDS: Econazole 1% CREAM (NF) 1 TUBE TOPICAL SCH (10:00)
[2017-04-20] MEDS: Nystatin CREAM* 15 GM TUBE TOPICAL SCH ×2 (11:57→19:54)
--- NOTE | 2017-04-20 19:38 | PN ---
Hospitalist Progress Note Pt seen at bedside. No complaints at this time. Denies fever, chill, shortness of breath, chest discomfort, N/V/D. Reports that pain is controlled.
[2017-04-20] MEDS: Enoxaparin(*) 40 MG/0.4 ML SYR SUBCUT SCH (20:57)
[2017-04-21] MEDS: fentaNYL Patch Check Q Shift 1 NOTE SCH ×2 (06:45→18:34)
[2017-04-21] MEDS: Omeprazole CAP* 20 MG PO SCH (07:33)
[2017-04-21] MEDS: Potassium Chlor TAB* 10 MEQ TAB.ER PO SCH (08:20)
[2017-04-21] MEDS: Pregabalin CAP(*) 50 MG PO SCH ×3 (08:20→20:09)
[2017-04-21] MEDS: Furosemide TAB* 40 MG PO SCH (08:21)
[2017-04-21] MEDS: Lactobacillus Acidophilu (GG)* 1 CAP CAP PO SCH ×2 (08:21→20:08)
[2017-04-21] MEDS: oxyCODONE ORAL.SOLN* 5 MG/5 ML UDC PO SCH ×3 (08:21→16:39)
[2017-04-21] MEDS: Aspirin EC Low Dose* 81 MG TAB.EC PO SCH (08:21)
[2017-04-21] MEDS: Diphenoxylat/Atrop 2.5-0.025M* 1 TAB PO SCH ×4 (08:21→20:09)
[2017-04-21] MEDS: Ferrous Gluconate TAB* 324 MG TAB PO SCH ×2 (08:21→20:08)
[2017-04-21] MEDS: Cyanocobalamin TAB* 500 MCG PO SCH (08:21)
[2017-04-21] MEDS: Ascorbic Acid TAB* 500 MG PO SCH (08:21)
[2017-04-21] MEDS: Cholecalciferol TAB* 1000 UNITS PO SCH (08:21)
[2017-04-21] MEDS: metroNIDAZOLE TAB* 250 MG PO SCH ×2 (08:21→20:08)
[2017-04-21] MEDS: Folic Acid TAB* 1 MG PO SCH (08:22)
[2017-04-21] MEDS: HYDROCORTISONE 2.5% TOPICAL SCH ×3 (08:25→20:08)
[2017-04-21] MEDS: Econazole 1% CREAM (NF) 1 TUBE TOPICAL SCH (08:25)
[2017-04-21] MEDS: Nystatin CREAM* 15 GM TUBE TOPICAL SCH ×2 (08:26→20:22)
[2017-04-21] MEDS: Zinc Sulfate CAP* 220 MG PO SCH (08:27)
[2017-04-21] MEDS: Enoxaparin(*) 40 MG/0.4 ML SYR SUBCUT SCH (20:08)
[2017-04-21] MEDS: fentaNYL PATCH 75 MCG/HR* 75 MCG TRANSDERM SCH (21:05)
[2017-04-22] MEDS: fentaNYL Patch Check Q Shift 1 NOTE SCH ×2 (06:45→18:39)
[2017-04-22] MEDS: Omeprazole CAP* 20 MG PO SCH (07:16)
[2017-04-22] MEDS: oxyCODONE ORAL.SOLN* 5 MG/5 ML UDC PO SCH ×3 (07:16→17:05)
[2017-04-22] MEDS: Econazole 1% CREAM (NF) 1 TUBE TOPICAL SCH (08:05)
[2017-04-22] MEDS: Nystatin CREAM* 15 GM TUBE TOPICAL SCH ×2 (08:07→20:23)
[2017-04-22] MEDS: metroNIDAZOLE TAB* 250 MG PO SCH ×2 (09:18→20:26)
[2017-04-22] MEDS: Cholecalciferol TAB* 1000 UNITS PO SCH (09:18)
[2017-04-22] MEDS: Zinc Sulfate CAP* 220 MG PO SCH (09:18)
[2017-04-22] MEDS: Aspirin EC Low Dose* 81 MG TAB.EC PO SCH (09:18)
[2017-04-22] MEDS: Pregabalin CAP(*) 50 MG PO SCH ×3 (09:18→20:26)
[2017-04-22] MEDS: Potassium Chlor TAB* 10 MEQ TAB.ER PO SCH (09:18)
[2017-04-22] MEDS: Diphenoxylat/Atrop 2.5-0.025M* 1 TAB PO SCH ×4 (09:19→20:26)
[2017-04-22] MEDS: Furosemide TAB* 40 MG PO SCH (09:19)
[2017-04-22] MEDS: Lactobacillus Acidophilu (GG)* 1 CAP CAP PO SCH ×2 (09:19→20:26)
[2017-04-22] MEDS: Ascorbic Acid TAB* 500 MG PO SCH (09:19)
[2017-04-22] MEDS: Cyanocobalamin TAB* 500 MCG PO SCH (09:19)
[2017-04-22] MEDS: Ferrous Gluconate TAB* 324 MG TAB PO SCH ×2 (09:19→20:26)
[2017-04-22] MEDS: Folic Acid TAB* 1 MG PO SCH (09:19)
[2017-04-22] MEDS: Hydrocortisone 1% CREAM* 30 GM TUBE TOPICAL SCH ×3 (10:08→20:23)
[2017-04-22] MEDS: HYDROCORTISONE 2.5% TOPICAL SCH (10:29)
[2017-04-22] MEDS: Enoxaparin(*) 40 MG/0.4 ML SYR SUBCUT SCH (20:34)
[2017-04-23] MEDS: Omeprazole CAP* 20 MG PO SCH (07:19)
[2017-04-23] MEDS: fentaNYL Patch Check Q Shift 1 NOTE SCH ×2 (07:20→18:49)
[2017-04-23] MEDS: oxyCODONE ORAL.SOLN* 5 MG/5 ML UDC PO SCH ×3 (08:00→17:18)
[2017-04-23] MEDS: Aspirin EC Low Dose* 81 MG TAB.EC PO SCH (09:15)
[2017-04-23] MEDS: Ferrous Gluconate TAB* 324 MG TAB PO SCH ×2 (09:15→20:05)
[2017-04-23] MEDS: metroNIDAZOLE TAB* 250 MG PO SCH ×2 (09:15→20:04)
[2017-04-23] MEDS: Furosemide TAB* 40 MG PO SCH (09:15)
[2017-04-23] MEDS: Potassium Chlor TAB* 10 MEQ TAB.ER PO SCH (09:15)
[2017-04-23] MEDS: Zinc Sulfate CAP* 220 MG PO SCH (09:16)
[2017-04-23] MEDS: Ascorbic Acid TAB* 500 MG PO SCH (09:16)
[2017-04-23] MEDS: Folic Acid TAB* 1 MG PO SCH (09:16)
[2017-04-23] MEDS: Cholecalciferol TAB* 1000 UNITS PO SCH (09:17)
[2017-04-23] MEDS: Lactobacillus Acidophilu (GG)* 1 CAP CAP PO SCH ×2 (09:17→20:04)
[2017-04-23] MEDS: Pregabalin CAP(*) 50 MG PO SCH ×3 (09:17→20:04)
[2017-04-23] MEDS: Diphenoxylat/Atrop 2.5-0.025M* 1 TAB PO SCH ×4 (09:17→20:04)
[2017-04-23] MEDS: Cyanocobalamin TAB* 500 MCG PO SCH (09:17)
[2017-04-23] MEDS: Nystatin CREAM* 15 GM TUBE TOPICAL SCH (09:21)
[2017-04-23] MEDS: Econazole 1% CREAM (NF) 1 TUBE TOPICAL SCH (09:32)
[2017-04-23] MEDS: Hydrocortisone 1% CREAM* 30 GM TUBE TOPICAL SCH ×3 (11:18→20:09)
--- NOTE | 2017-04-23 14:41 | PN ---
Hospitalist Progress Note S:Patient seen today with no new complaints. Per the rash in patient's groin has been getting worse and is not responding to nystatin cream. is also concerned about rash under the tape on patient's left upper buttock which she is concerned will interfere with the plans for a skin flap. PCP also concerned about minor and stable anemia and would like FOBT testing. O: Red wet rash in intertriginous zones of groin and scrotum without central clearing with small lesions away from main rash. Small rash under tape with scaly borders and central clearing. A/P: Intertriginous Candidal Infection of Groin: Will trial patient's econazole cream on groin as well even though aguila should be susceptible to nystatin, it has been unresponsive for 3 weeks of treatment. Tinea Corporis Left Buttock: Looks similar to rash that is being treated with and is responsive to econazole cream. Anemia, Mild: Patient has no obvious source of blood loss with FOBT being negative. Patient has mild iron deficiency as of 02/21 and is being treated with Iron and Vitamin C. Patient also has a chronic infection. May be a combination of Iron deficiency anemia and anemia of chronic disease. Patient is asymptomatic at this time. Will continue to monitor.
--- NOTE | 2017-04-23 17:13 | PN ---
Progress Note - Progress Note Date of Service: 04/23/17 SOAP: Subjective: Doing well without complaint He says he is eating better No pain at present Objective: Temp Pulse Resp BP Pulse Ox 98.3 F 74 16 160/76 97 04/23/17 07:42 04/23/17 07:42 04/23/17 14:32 04/23/17 07:42 04/23/17 07:42 PEX: Sacral decubitus is clean with healthy granulation tissue present except at the upper midline where there is still exposed bone and some fibrous tissue. No odor or drainage, no signs of infection. Assessment: Sacral decubitus-healthy and clean. No debridement needed at this point Plan: Continue present wound care Will discuss with possible return to wound vac Plastic surgical consult next week in [place].
[2017-04-23] MEDS: Enoxaparin(*) 40 MG/0.4 ML SYR SUBCUT SCH (20:05)
[2017-04-24] MEDS: fentaNYL Patch Check Q Shift 1 NOTE SCH ×2 (06:57→19:20)
[2017-04-24] MEDS: oxyCODONE ORAL.SOLN* 5 MG/5 ML UDC PO SCH ×3 (07:56→16:54)
[2017-04-24] MEDS: Omeprazole CAP* 20 MG PO SCH (07:56)
[2017-04-24] MEDS: Zinc Sulfate CAP* 220 MG PO SCH (10:08)
[2017-04-24] MEDS: Ascorbic Acid TAB* 500 MG PO SCH (10:08)
[2017-04-24] MEDS: metroNIDAZOLE TAB* 250 MG PO SCH ×2 (10:08→21:28)
[2017-04-24] MEDS: Lactobacillus Acidophilu (GG)* 1 CAP CAP PO SCH ×2 (10:08→21:29)
[2017-04-24] MEDS: Cyanocobalamin TAB* 500 MCG PO SCH (10:08)
[2017-04-24] MEDS: Aspirin EC Low Dose* 81 MG TAB.EC PO SCH (10:08)
[2017-04-24] MEDS: Ferrous Gluconate TAB* 324 MG TAB PO SCH ×2 (10:08→21:29)
[2017-04-24] MEDS: Potassium Chlor TAB* 10 MEQ TAB.ER PO SCH (10:08)
[2017-04-24] MEDS: Diphenoxylat/Atrop 2.5-0.025M* 1 TAB PO SCH ×4 (10:08→21:28)
[2017-04-24] MEDS: Furosemide TAB* 40 MG PO SCH (10:08)
[2017-04-24] MEDS: Folic Acid TAB* 1 MG PO SCH (10:09)
[2017-04-24] MEDS: Cholecalciferol TAB* 1000 UNITS PO SCH (10:09)
[2017-04-24] MEDS: Pregabalin CAP(*) 50 MG PO SCH ×3 (10:09→21:28)
[2017-04-24] MEDS: Hydrocortisone 1% CREAM* 30 GM TUBE TOPICAL SCH ×3 (10:18→21:33)
[2017-04-24] MEDS: Econazole 1% CREAM (NF) 1 TUBE TOPICAL SCH (10:20)
[2017-04-24 14:44] LABS: Hematocrit 37 % (42-52); Hemoglobin 12.2 g/dl (14.0-18.0); Mean Corpuscular HGB Conc 33 g/dl (31-36); Mean Corpuscular Hemoglobin 27 pg (27-31); Mean Corpuscular Volume 84 fL (80-94); Mean Platelet Volume 8 um3 (7.4-10.4); Red Blood Count 4.47 10^6/ul (4.0-5.4); Red Cell Distribution Width 19 % (10.5-15)
[2017-04-24 15:06] LABS: BUN/Creatinine Ratio 28.4 (8-20); C Reactive Protein 22.35 mg/L (< 5.00); Calcium 9.7 mg/dL (8.6-10.3); EGFR African American 79.8 (>60); EGFR Non-African American 62.1 (>60)
--- NOTE | 2017-04-24 16:03 | RAD ---
Indication: Preop chest x-ray. 2 views of the chest and shape no mediastinal shift. Heart is of normal size and configuration. Lung swift appear clear. IMPRESSION: No active cardiopulmonary disease is noted.
[2017-04-24] MEDS: fentaNYL PATCH 75 MCG/HR* 75 MCG TRANSDERM SCH (21:23)
[2017-04-24] MEDS: Enoxaparin(*) 40 MG/0.4 ML SYR SUBCUT SCH (21:29)
[2017-04-25] MEDS: Omeprazole CAP* 20 MG PO SCH (05:58)
[2017-04-25] MEDS: fentaNYL Patch Check Q Shift 1 NOTE SCH ×2 (07:11→18:39)
[2017-04-25] MEDS: oxyCODONE ORAL.SOLN* 5 MG/5 ML UDC PO SCH ×3 (08:06→17:12)
[2017-04-25] MEDS: Econazole 1% CREAM (NF) 1 TUBE TOPICAL SCH (08:08)
[2017-04-25] MEDS: Hydrocortisone 1% CREAM* 30 GM TUBE TOPICAL SCH ×3 (08:10→20:05)
[2017-04-25] MEDS: Pregabalin CAP(*) 50 MG PO SCH ×3 (10:03→20:05)
[2017-04-25] MEDS: Cholecalciferol TAB* 1000 UNITS PO SCH (10:03)
[2017-04-25] MEDS: Lactobacillus Acidophilu (GG)* 1 CAP CAP PO SCH ×2 (10:03→20:05)
[2017-04-25] MEDS: Furosemide TAB* 40 MG PO SCH (10:04)
[2017-04-25] MEDS: Cyanocobalamin TAB* 500 MCG PO SCH (10:04)
[2017-04-25] MEDS: Ascorbic Acid TAB* 500 MG PO SCH (10:04)
[2017-04-25] MEDS: Aspirin EC Low Dose* 81 MG TAB.EC PO SCH (10:04)
[2017-04-25] MEDS: Zinc Sulfate CAP* 220 MG PO SCH (10:04)
[2017-04-25] MEDS: Folic Acid TAB* 1 MG PO SCH (10:04)
[2017-04-25] MEDS: Diphenoxylat/Atrop 2.5-0.025M* 1 TAB PO SCH ×4 (10:05→20:04)
[2017-04-25] MEDS: Potassium Chlor TAB* 10 MEQ TAB.ER PO SCH (10:05)
[2017-04-25] MEDS: metroNIDAZOLE TAB* 250 MG PO SCH ×2 (10:05→20:03)
[2017-04-25] MEDS: Ferrous Gluconate TAB* 324 MG TAB PO SCH ×2 (10:05→20:04)
--- NOTE | 2017-04-25 12:13 | PN ---
Progress Note - Progress Note Date of Service: 04/25/17 SOAP: Subjective: Without new complaint is present today at bedside Objective: Temp Pulse Resp BP Pulse Ox 97.9 F 79 16 148/71 96 04/25/17 00:05 04/25/17 00:05 04/25/17 11:43 04/25/17 00:05 04/25/17 00:05 PEX: Sacral ulcer remains clean and has healthy granulation tissue present except at area in midline where there remains some exposed bone and fibrous tissue. No odor or drainage. Surrounding skin with good integrity and no irritation. Assessment: Sacral pressure ulcer Plan: Will now apply wound vac-125 mm HG suction with white foam over exposed bone. I think this will now expedite healing and wound care. All discussed with at bedside and her questions were answered.
[2017-04-25] MEDS: Enoxaparin(*) 40 MG/0.4 ML SYR SUBCUT SCH (20:03)
[2017-04-26] MEDS: Omeprazole CAP* 20 MG PO SCH (06:07)
[2017-04-26] MEDS: fentaNYL Patch Check Q Shift 1 NOTE SCH ×2 (06:56→19:06)
[2017-04-26] MEDS: oxyCODONE ORAL.SOLN* 5 MG/5 ML UDC PO SCH ×3 (07:45→17:44)
[2017-04-26] MEDS: Econazole 1% CREAM (NF) 1 TUBE TOPICAL SCH (08:15)
[2017-04-26] MEDS: Hydrocortisone 1% CREAM* 30 GM TUBE TOPICAL SCH ×4 (08:15→21:59)
[2017-04-26] MEDS: Zinc Sulfate CAP* 220 MG PO SCH (09:58)
[2017-04-26] MEDS: metroNIDAZOLE TAB* 250 MG PO SCH ×2 (09:58→21:22)
[2017-04-26] MEDS: Cholecalciferol TAB* 1000 UNITS PO SCH (09:58)
[2017-04-26] MEDS: Pregabalin CAP(*) 50 MG PO SCH ×3 (09:58→21:22)
[2017-04-26] MEDS: Cyanocobalamin TAB* 500 MCG PO SCH (09:59)
[2017-04-26] MEDS: Folic Acid TAB* 1 MG PO SCH (09:59)
[2017-04-26] MEDS: Potassium Chlor TAB* 10 MEQ TAB.ER PO SCH (10:00)
[2017-04-26] MEDS: Ascorbic Acid TAB* 500 MG PO SCH (10:00)
[2017-04-26] MEDS: Furosemide TAB* 40 MG PO SCH (10:00)
[2017-04-26] MEDS: Ferrous Gluconate TAB* 324 MG TAB PO SCH ×2 (10:00→21:22)
[2017-04-26] MEDS: Lactobacillus Acidophilu (GG)* 1 CAP CAP PO SCH ×2 (10:00→21:21)
[2017-04-26] MEDS: Aspirin EC Low Dose* 81 MG TAB.EC PO SCH (10:00)
[2017-04-26] MEDS: Diphenoxylat/Atrop 2.5-0.025M* 1 TAB PO SCH ×4 (10:01→21:21)
[2017-04-26] MEDS: Enoxaparin(*) 40 MG/0.4 ML SYR SUBCUT SCH (21:22)
[2017-04-27] MEDS: Omeprazole CAP* 20 MG PO SCH (06:07)
[2017-04-27] MEDS: fentaNYL Patch Check Q Shift 1 NOTE SCH ×2 (07:00→18:49)
[2017-04-27] MEDS: Econazole 1% CREAM (NF) 1 TUBE TOPICAL SCH (08:00)
[2017-04-27] MEDS: Hydrocortisone 1% CREAM* 30 GM TUBE TOPICAL SCH ×3 (08:00→20:22)
[2017-04-27] MEDS: oxyCODONE ORAL.SOLN* 5 MG/5 ML UDC PO SCH ×3 (08:43→17:30)
[2017-04-27] MEDS: Aspirin EC Low Dose* 81 MG TAB.EC PO SCH (09:59)
[2017-04-27] MEDS: Ascorbic Acid TAB* 500 MG PO SCH (09:59)
[2017-04-27] MEDS: Potassium Chlor TAB* 10 MEQ TAB.ER PO SCH (10:00)
[2017-04-27] MEDS: metroNIDAZOLE TAB* 250 MG PO SCH ×2 (10:00→19:58)
[2017-04-27] MEDS: Cholecalciferol TAB* 1000 UNITS PO SCH (10:01)
[2017-04-27] MEDS: Ferrous Gluconate TAB* 324 MG TAB PO SCH ×2 (10:02→19:58)
[2017-04-27] MEDS: Pregabalin CAP(*) 50 MG PO SCH ×3 (10:02→19:58)
[2017-04-27] MEDS: Folic Acid TAB* 1 MG PO SCH (10:03)
[2017-04-27] MEDS: Furosemide TAB* 40 MG PO SCH (10:03)
[2017-04-27] MEDS: Cyanocobalamin TAB* 500 MCG PO SCH (10:04)
[2017-04-27] MEDS: Lactobacillus Acidophilu (GG)* 1 CAP CAP PO SCH ×2 (10:04→19:58)
[2017-04-27] MEDS: Diphenoxylat/Atrop 2.5-0.025M* 1 TAB PO SCH ×4 (10:04→19:58)
[2017-04-27] MEDS: Zinc Sulfate CAP* 220 MG PO SCH (10:06)
--- NOTE | 2017-04-27 19:17 | PN ---
Subjective Date of Service: 04/27/17 Interval History: Patient seen and examined at bedside. Denies fever, chills, shortness of breath , chest discomfort, N/V/D. Pt states that he is feeling well and offers no complaints. Family History: Unchanged from Admission Social History: Unchanged from Admission Past Medical History: Unchanged from Admission Objective Active Medications: Acetaminophen (Tylenol Tab*) 650 mg PO Q6H PRN Reason: FEVER/PAIN Ascorbic Acid (Vitamin C Tab*) 500 mg PO DAILY [facility] Aspirin (Aspirin Ec Low Dose*) 81 mg PO DAILY [facility] Bisacodyl (Dulcolax Supp*) 10 mg VT DAILY PRN Reason: CONSTIPATION Cholecalciferol (Vitamin D Tab*) 5,000 units PO DAILY [facility] Cyanocobalamin (Vitamin B12 Tab*) 1,000 mcg PO DAILY [facility] Diphenoxylate HCl/Atropine (Lomotil Tab*) 1 tab PO QID [facility] Docusate Sodium (Colace Cap*) 100 mg PO BID PRN Reason: CONSTIPATION Econazole Nitrate (Econazole 1 % Cream (Nf)) 1 applic TOPICAL DAILY [facility] Enoxaparin Sodium (Lovenox(*)) 40 mg SUBCUT Q24H [facility] Fentanyl (Duragesic Patch 75 Mcg/Hr*) 75 mcg TRANSDERM Q72H [facility] Ferrous Gluconate (Fergon Tab*) 324 mg PO BID [facility] Folic Acid (Folvite Tab*) 0.5 mg PO DAILY [facility] Furosemide (Lasix Tab*) 40 mg PO DAILY [facility] Heparin Sodium (Porcine) (Heparin Flush Picc/Ml/Cvc(*)) 1 ml FLUSH 0600,1800 [facility] Hydrocortisone (Hytone Cream 1%*) 1 applic TOPICAL TID [facility] Ceftriaxone Sodium 2 gm/ (Sodium Chloride) 100 mls @ 200 mls/hr IVPB Q24H [facility] Lactobacillus Rhamnosus (Culturelle*) 1 cap PO BID [facility] Metronidazole (Flagyl Tab*) 500 mg PO BID [facility] Omeprazole (Prilosec Cap*) 40 mg PO 0600 [facility] Ondansetron HCl (Zofran Odt Tab*) 4 mg PO Q8H PRN Reason: NAUSEA/VOMITING Oxycodone HCl (Oxycodone Oral.Soln*) 10 mg PO AC [facility] Pharmacy Profile Note (Fentanyl Patch Check Q Shift) 1 note N/A 0700,1900 [facility] Potassium Chloride (Klor Con Er Tab*) 10 meq PO DAILY [facility] Pregabalin (Lyrica Cap(*)) 150 mg PO TID [facility] Zinc Sulfate (Zinc-220 Cap*) 220 mg PO DAILY [facility] Vital Signs 04/26/17 04/26/17 04/26/17 21:57 22:00 23:21 Temperature 99.1 F Pulse Rate 81 Respiratory 14 14 18 Rate Blood Pressure 126/64 (mmHg) O2 Sat by Pulse 94 Oximetry 04/27/17 04/27/17 04/27/17 08:00 08:07 08:43 Temperature 98.7 F Pulse Rate 74 Respiratory 14 16 14 Rate Blood Pressure 156/76 (mmHg) O2 Sat by Pulse 99 Oximetry 04/27/17 04/27/17 04/27/17 14:29 15:24 17:30 Temperature Pulse Rate 91 Respiratory 14 16 16 Rate Blood Pressure 145/69 (mmHg) O2 Sat by Pulse 95 Oximetry 04/27/17 18:53 Temperature 98.6 F Pulse Rate 82 Respiratory 14 Rate Blood Pressure 154/62 (mmHg) O2 Sat by Pulse 97 Oximetry Oxygen Devices in Use Now: None Appearance: NAD, laying in bed Ears/Nose/Mouth/Throat: Mucous Membranes Moist Respiratory: Symmetrical Chest Expansion and Respiratory Effort, Clear to Auscultation Cardiovascular: NL Sounds; No Murmurs; No JVD, RRR Abdominal: NL Sounds; No Tenderness; No Distention Extremities: No Edema Neurological: Alert and Oriented x 3 - , forgetful, NL Muscle Strength and Tone Lines/Tubes/Other Access: Clean, Dry and Intact PICC Line - site benign Nutrition: Taking PO's Result Diagrams: 04/24/17 14:11 04/24/17 14:11 Microbiology and Other Data: Microbiology 04/23/17 12:15 Stool Occult Blood (RUPALI) - Final Stool Assess/Plan/Problems-Billing Assessment: Mr. Merino is a 71 yo male with PMH significant for who presented to the emergency room for ependymoma of his lumbar spine, which was oringinally diagnosed in 1970, s/p multiple debulking surgeries in the past and radiation and chemotherapy, papaplegia secondary to tumor, HTN, GERD, MATY, CAD, CKD stage 3, neurogenic bowel and bladder, who presented initially to the emergency room with sepsis secondary to an infected sacral decubitus ulcer on 9/2/17 and has been hospitalized since, he is now a swing patient awaiting surgery. - Patient Problems (1) Acute osteomyelitis of sacrum Code(s): M46.28 - OSTEOMYELITIS OF VERTEBRA, SACRAL AND SACROCOCCYGEAL REGION SNOMED Code(s): 875258369 Comment: - No evidence of new sepsis, CRP stable. - Continue Ceftriaxone and flagyl at current doses per ID. (2) Sacral decubitus ulcer, stage IV Code(s): L89.154 - PRESSURE ULCER OF SACRAL REGION, STAGE 4 SNOMED Code(s): 357588107 Comment: - Plastic surgery consultation with Dr. Yassine Blankenship at [facility], plan for surgery on 05/02 - Appreciate nutrition recommendations to support healing, attempt for 6 small protein rich meals daily and continue vitamins (Vitamin C). - Continue wound care per surgery recommendations, last debrided 04/[address] Harmon, now with a wound vac According to the RCRI the patient has 0 points, placing him at a class I risk and a 0.4% risk of a major cardiac event. EKG - Sinus rhythm, no signs of acute ischemia. METs score - less than 1 due to paraglegia. The patient is medically optimized for surgery and requires no further cardiac work-up. (3) Anemia Code(s): D64.9 - ANEMIA, UNSPECIFIED SNOMED Code(s): 796449225 Comment: - Suspect anemia of chronic disease and SILVIA. - Stool for occult blood negative. - No s/s of bleeding. - Continue iron supplementation, B12, folate. (4) Candidiasis Code(s): B37.9 - CANDIDIASIS, UNSPECIFIED SNOMED Code(s): 94684182 Comment: - Groin - Continue Econazole (5) Diarrhea Code(s): R19.7 - DIARRHEA, UNSPECIFIED SNOMED Code(s): 85938004 Comment: - ~ 1 BM daily - Continued assiduous charlene-care. - Continue Flagyl, Probiotic, and Lomotil (6) Tinea corporis Code(s): B35.4 - TINEA CORPORIS SNOMED Code(s): 93599332 Comment: - Improving annular scaly lesion on hip and new area on left buttock consistent with tinea corporis. - Continue home antifungal cream, econazole cream. (7) Chronic indwelling Arriaga catheter Code(s): Z92.89 - PERSONAL HISTORY OF OTHER MEDICAL TREATMENT SNOMED Code(s): 465628866 Comment: - High risk of UTI - currently on ABX, no current evidence of UTI. (8) Ependymoma Code(s): C71.9 - MALIGNANT NEOPLASM OF BRAIN, UNSPECIFIED SNOMED Code(s): 385216321 Comment: - To the spine (dx in patient's 20s) - With concurrent chronic back pain and inability to ambulate - s/p multiple surgeries - Back anatomy puts patient at much higher risk for pressure ulcer formation, as does high opiate requirements and fragility with easily acquired infections ( pneumonia / urinary tract infections). UTI's in particular are a high risk given his neurogenic bladder and indwelling arriaga catheter. (9) HTN (hypertension) Code(s): I10 - ESSENTIAL (PRIMARY) HYPERTENSION SNOMED Code(s): 82041093 Comment: - SBP 120-160's - Continue lasix (10) MATY (obstructive sleep apnea) Code(s): G47.33 - OBSTRUCTIVE SLEEP APNEA (ADULT) (PEDIATRIC) SNOMED Code(s): 03058762 Comment: Continue home BiPAP use. (11) DVT prophylaxis Code(s): DBM5093 - SNOMED Code(s): 005595867 Comment: Lovenox TEDs in bed. (12) Full code status Code(s): Z78.9 - OTHER SPECIFIED HEALTH STATUS Status and Disposition: Inpatient. Plan for transfer to [facility] on 05/02/17 for I+D, flap and wound vac with Dr. Yassine Blankenship.
[2017-04-27] MEDS: Enoxaparin(*) 40 MG/0.4 ML SYR SUBCUT SCH (19:58)
[2017-04-27] MEDS: fentaNYL PATCH 75 MCG/HR* 75 MCG TRANSDERM SCH (20:02)
[2017-04-28] MEDS: Omeprazole CAP* 20 MG PO SCH (06:02)
[2017-04-28] MEDS: fentaNYL Patch Check Q Shift 1 NOTE SCH ×2 (07:01→19:04)
[2017-04-28] MEDS: Hydrocortisone 1% CREAM* 30 GM TUBE TOPICAL SCH ×3 (08:00→21:57)
[2017-04-28] MEDS: oxyCODONE ORAL.SOLN* 5 MG/5 ML UDC PO SCH ×3 (08:45→16:29)
[2017-04-28] MEDS: Cyanocobalamin TAB* 500 MCG PO SCH (09:00)
[2017-04-28] MEDS: Ferrous Gluconate TAB* 324 MG TAB PO SCH ×2 (09:00→20:51)
[2017-04-28] MEDS: Diphenoxylat/Atrop 2.5-0.025M* 1 TAB PO SCH ×4 (09:00→20:51)
[2017-04-28] MEDS: Aspirin EC Low Dose* 81 MG TAB.EC PO SCH (09:00)
[2017-04-28] MEDS: Potassium Chlor TAB* 10 MEQ TAB.ER PO SCH (09:00)
[2017-04-28] MEDS: Furosemide TAB* 40 MG PO SCH (09:00)
[2017-04-28] MEDS: metroNIDAZOLE TAB* 250 MG PO SCH ×2 (09:00→20:53)
[2017-04-28] MEDS: Zinc Sulfate CAP* 220 MG PO SCH (09:00)
[2017-04-28] MEDS: Folic Acid TAB* 1 MG PO SCH (09:00)
[2017-04-28] MEDS: Lactobacillus Acidophilu (GG)* 1 CAP CAP PO SCH ×2 (09:00→20:54)
[2017-04-28] MEDS: Cholecalciferol TAB* 1000 UNITS PO SCH (09:01)
[2017-04-28] MEDS: Pregabalin CAP(*) 50 MG PO SCH ×3 (09:01→20:52)
[2017-04-28] MEDS: Ascorbic Acid TAB* 500 MG PO SCH (09:01)
[2017-04-28] MEDS: Econazole 1% CREAM (NF) 1 TUBE TOPICAL SCH (11:00)
--- NOTE | 2017-04-28 15:45 | PN ---
Hospitalist Progress Note Patient was briefly visited and examined today. No acute complaints. Wound vac in place. Using a slide board for transfers with success. Awaiting transfer for flap procedure. Vital Signs: Temp Pulse Resp BP Pulse Ox 98.6 F 82 14 154/62 97 04/27/17 18:53 04/27/17 18:53 04/28/17 14:28 04/27/17 18:53 04/27/17 18:53 Exam: Well appearing, in NAD RRR, no m/r/g Lungs CTA Abd soft Wound not examined A/P: 1. Acute osteomyelitis secondary to stage IV decub - awaiting transfer for flap closure Swing status
[2017-04-28] MEDS: Enoxaparin(*) 40 MG/0.4 ML SYR SUBCUT SCH (20:12)
[2017-04-29] MEDS: Omeprazole CAP* 20 MG PO SCH (06:10)
[2017-04-29] MEDS: fentaNYL Patch Check Q Shift 1 NOTE SCH ×2 (07:13→18:58)
[2017-04-29] MEDS: oxyCODONE ORAL.SOLN* 5 MG/5 ML UDC PO SCH ×3 (07:44→17:08)
[2017-04-29] MEDS: Furosemide TAB* 40 MG PO SCH (08:29)
[2017-04-29] MEDS: Cholecalciferol TAB* 1000 UNITS PO SCH (08:29)
[2017-04-29] MEDS: Ferrous Gluconate TAB* 324 MG TAB PO SCH ×2 (08:30→20:13)
[2017-04-29] MEDS: Aspirin EC Low Dose* 81 MG TAB.EC PO SCH (08:30)
[2017-04-29] MEDS: Folic Acid TAB* 1 MG PO SCH (08:30)
[2017-04-29] MEDS: Cyanocobalamin TAB* 500 MCG PO SCH (08:30)
[2017-04-29] MEDS: Potassium Chlor TAB* 10 MEQ TAB.ER PO SCH (08:30)
[2017-04-29] MEDS: Ascorbic Acid TAB* 500 MG PO SCH (08:30)
[2017-04-29] MEDS: metroNIDAZOLE TAB* 250 MG PO SCH ×2 (08:30→20:14)
[2017-04-29] MEDS: Zinc Sulfate CAP* 220 MG PO SCH (08:30)
[2017-04-29] MEDS: Lactobacillus Acidophilu (GG)* 1 CAP CAP PO SCH ×2 (08:30→20:13)
[2017-04-29] MEDS: Diphenoxylat/Atrop 2.5-0.025M* 1 TAB PO SCH ×4 (08:30→20:13)
[2017-04-29] MEDS: Hydrocortisone 1% CREAM* 30 GM TUBE TOPICAL SCH ×3 (08:31→22:21)
[2017-04-29] MEDS: Econazole 1% CREAM (NF) 1 TUBE TOPICAL SCH (08:31)
[2017-04-29] MEDS ORDERED: Pregabalin CAP(*) 100 MG ONE (10:06)
[2017-04-29] MEDS ORDERED: Pregabalin CAP(*) 50 MG ONE (10:06)
[2017-04-29] MEDS: Pregabalin CAP(*) 50 MG PO SCH ×3 (10:11→20:15)
[2017-04-29] MEDS: Enoxaparin(*) 40 MG/0.4 ML SYR SUBCUT SCH (20:15)
[2017-04-30] MEDS: Omeprazole CAP* 20 MG PO SCH (06:12)
[2017-04-30] MEDS: fentaNYL Patch Check Q Shift 1 NOTE SCH ×2 (06:49→18:38)
[2017-04-30] MEDS: oxyCODONE TAB* 5 MG TAB PO SCH ×3 (08:18→17:22)
[2017-04-30] MEDS: Econazole 1% CREAM (NF) 1 TUBE TOPICAL SCH (08:20)
[2017-04-30] MEDS: Ascorbic Acid TAB* 500 MG PO SCH (10:01)
[2017-04-30] MEDS: Furosemide TAB* 40 MG PO SCH (10:01)
[2017-04-30] MEDS: Lactobacillus Acidophilu (GG)* 1 CAP CAP PO SCH ×2 (10:01→20:17)
[2017-04-30] MEDS: Folic Acid TAB* 1 MG PO SCH (10:01)
[2017-04-30] MEDS: metroNIDAZOLE TAB* 250 MG PO SCH ×2 (10:02→20:17)
[2017-04-30] MEDS: Aspirin EC Low Dose* 81 MG TAB.EC PO SCH (10:02)
[2017-04-30] MEDS: Cyanocobalamin TAB* 500 MCG PO SCH (10:02)
[2017-04-30] MEDS: Diphenoxylat/Atrop 2.5-0.025M* 1 TAB PO SCH ×4 (10:02→20:16)
[2017-04-30] MEDS: Zinc Sulfate CAP* 220 MG PO SCH (10:02)
[2017-04-30] MEDS: Cholecalciferol TAB* 1000 UNITS PO SCH (10:02)
[2017-04-30] MEDS: Potassium Chlor TAB* 10 MEQ TAB.ER PO SCH (10:02)
[2017-04-30] MEDS: Ferrous Gluconate TAB* 324 MG TAB PO SCH ×2 (10:02→20:16)
[2017-04-30] MEDS: Pregabalin CAP(*) 50 MG PO SCH ×3 (10:03→20:18)
[2017-04-30] MEDS: Hydrocortisone 1% CREAM* 30 GM TUBE TOPICAL SCH ×3 (10:05→20:23)
--- NOTE | 2017-04-30 13:34 | HOSP.PREOP ---
Subjective Date of Service: 04/30/17 Interval History: Patient has no complaints. Patient was able to transfer to the wheelchair today with moderate assistance from the staff and a slide-board. Family History: Unchanged from Admission Social History: Unchanged from Admission Past Medical History: Findings - Patient has a Past Medical History significant for Empendymoma, paraplegia, neurogenic bladder and bowel, Stage IV Sacral decubitus ulcer, MATY, CKD Stage III, Asthma, HTN, HLD, BPH and Carotid Artery Stenosis, Patient has no history of Coronary Artery Disease as was previously stated. Review of Systems - Measurements Intake and Output: Intake and Output Last 24 Hours 04/28/17 04/29/17 04/30/17 05/01/17 06:59 06:59 06:59 06:59 Intake Total 1460 624 7089 335 Output Total 2050 1375 2325 Balance -880 -415 -1165 335 Intake: IV Fluids 130 30 NS (0.9%) 30 30 abx 100 IVPB 105 ceftriaxone 105 Oral 5699 661 5191 200 Output: Urine 700 925 Fischer 1350 1375 1400 Other: Date of Last Bowel 04/29/17 Movement # Bowel Movements 1 1 Estimated Stool Amount Medium Small Large - Review of Systems Constitutional Symptoms: Negative: Weight Gain, Weight Loss, Weakness, Fatigue, Fever, Night Sweats Dermatology: Positive: Rash - Improving rash on hip and in groin. Negative: Skin Lesions, Cancer, Skin Lumps HEENT: Negative: Vertigo, Dental Problems Eyes: Negative: Change in Vision, Eye Pain Thyroid: Positive: Frequent Defecation - Improving Pulmonary: Positive: Other - Sleep Apnea Negative: Cough, Sputum, Wheezing, Shortness of Breath, COPD, Asthma, Exercise Intolerance, Home Oxygen Cardiology: Negative: Chest Pain, Shortness of Breath, Palpitations, Swelling of Ankles, Peripheral Vascular Dis, Edema, Faintness, Syncope, Proximal NocturnalDyspnea, Orthopnoea Gastroenterology: Positive: Diarrhea Negative: Abdominal Pain, Nausea, Vomiting, Anorexia, Indigestion, Difficulty Swallowing, Heartburn, Constipation, Blood in Stools, Haematemesis, Melena Genital - Urinary: Positive: Other - Chronic Indwelling Catheter Negative: Hematuria Genitourinary - Male: Negative: Family Hx of Prostate Cancer Musculoskeletal: Positive: Low Back Pain Negative: Joint Pain, Joint Stiffness, Osteoporosis, Joint Deformities Endocrinology: Positive: Obesity Negative: Diabetes Mellitus, Hyperglycemia Hematologic/Lymphatic: Positive: Anemia, Use of Antiplatelet Drugs - Daily Aspirin Negative: Easy Brusing, Hx Leukemia, Hx Lymphoma, Use of Anticoagulant Neurology: Positive: Other - Longstanding paraplegia. Insensate from the waist down. Neurogenic Bowel and Bladder. Negative: Headache, Migraines, Change in Vision, Dizziness, Change in Memory , Change in Speech, Numbness\Paresthesiae, Unexplained Weakness, Hx of Stroke\ TIA, Hx of Seizures Psychiatry: Negative: Depression, Anxiety Allergic/Immunologic: Negative: Hx Anaphylaxis, Hx HIV, Immunocompromise, Swollen Glands LymphNodes Objective Active Medications: Acetaminophen (Tylenol Tab*) 650 mg PO Q6H PRN PRN Reason: FEVER/PAIN Ascorbic Acid (Vitamin C Tab*) 500 mg PO DAILY [facility] Last Admin: 04/30/17 10:01 Dose: 500 mg Aspirin (Aspirin Ec Low Dose*) 81 mg PO DAILY [facility] Last Admin: 04/30/17 10:02 Dose: 81 mg Bisacodyl (Dulcolax Supp*) 10 mg IA DAILY PRN PRN Reason: CONSTIPATION Cholecalciferol (Vitamin D Tab*) 5,000 units PO DAILY [facility] Last Admin: 04/30/17 10:02 Dose: 5,000 units Cyanocobalamin (Vitamin B12 Tab*) 1,000 mcg PO DAILY [facility] Last Admin: 04/30/17 10:02 Dose: 1,000 mcg Diphenoxylate HCl/Atropine (Lomotil Tab*) 1 tab PO QID [facility] Last Admin: 04/30/17 10:02 Dose: 1 tab Docusate Sodium (Colace Cap*) 100 mg PO BID PRN PRN Reason: CONSTIPATION Econazole Nitrate (Econazole 1 % Cream (Nf)) 1 applic TOPICAL DAILY [facility] Last Admin: 04/30/17 08:20 Dose: 1 applic Enoxaparin Sodium (Lovenox(*)) 40 mg SUBCUT Q24H [facility] Stop: 04/30/17 20:01 Last Admin: 04/29/17 20:15 Dose: 40 mg Fentanyl (Duragesic Patch 75 Mcg/Hr*) 75 mcg TRANSDERM Q72H [facility] Last Admin: 04/27/17 20:02 Dose: 75 mcg Ferrous Gluconate (Fergon Tab*) 324 mg PO BID [facility] Last Admin: 04/30/17 10:02 Dose: 324 mg Folic Acid (Folvite Tab*) 0.5 mg PO DAILY [facility] Last Admin: 04/30/17 10:01 Dose: 0.5 mg Furosemide (Lasix Tab*) 40 mg PO DAILY [facility] Last Admin: 04/30/17 10:01 Dose: 40 mg Heparin Sodium (Porcine) (Heparin Flush Picc/Ml/Cvc(*)) 1 ml FLUSH 0600,1800 [facility] PRN Reason: Protocol Last Admin: 04/30/17 10:47 Dose: 1 ml Hydrocortisone (Hytone Cream 1%*) 1 applic TOPICAL TID [facility] Last Admin: 04/30/17 10:05 Dose: 1 applic Ceftriaxone Sodium 2 gm/ (Sodium Chloride) 100 mls @ 200 mls/hr IVPB Q24H [facility] Last Admin: 04/30/17 09:55 Dose: 200 mls/hr Lactobacillus Rhamnosus (Culturelle*) 1 cap PO BID [facility] Last Admin: 04/30/17 10:01 Dose: 1 cap Metronidazole (Flagyl Tab*) 500 mg PO BID [facility] Last Admin: 04/30/17 10:02 Dose: 500 mg Omeprazole (Prilosec Cap*) 40 mg PO 0600 [facility] Last Admin: 04/30/17 06:12 Dose: 40 mg Ondansetron HCl (Zofran Odt Tab*) 4 mg PO Q8H PRN PRN Reason: NAUSEA/VOMITING Oxycodone HCl (Roxycodone Tab*) 10 mg PO AC [facility] Last Admin: 04/30/17 12:09 Dose: 10 mg Pharmacy Profile Note (Fentanyl Patch Check Q Shift) 1 note N/A 0700,1900 [facility] Last Admin: 04/30/17 06:49 Dose: 1 note Potassium Chloride (Klor Con Er Tab*) 10 meq PO DAILY [facility] Last Admin: 04/30/17 10:02 Dose: 10 meq Pregabalin (Lyrica Cap(*)) 150 mg PO TID [facility] Last Admin: 04/30/17 10:03 Dose: 150 mg Zinc Sulfate (Zinc-220 Cap*) 220 mg PO DAILY [facility] Last Admin: 04/30/17 10:02 Dose: 220 mg Vital Signs 04/29/17 04/29/17 04/29/17 13:48 14:44 14:45 Temperature Pulse Rate Respiratory 18 16 16 Rate Blood Pressure (mmHg) O2 Sat by Pulse Oximetry 04/29/17 04/29/17 04/29/17 16:44 16:45 17:08 Temperature Pulse Rate Respiratory 18 18 18 Rate Blood Pressure (mmHg) O2 Sat by Pulse Oximetry 04/29/17 04/29/17 04/29/17 19:08 20:00 20:13 Temperature Pulse Rate Respiratory 18 20 20 Rate Blood Pressure (mmHg) O2 Sat by Pulse Oximetry 04/29/17 04/29/17 04/29/17 20:15 22:13 22:15 Temperature Pulse Rate Respiratory 20 18 18 Rate Blood Pressure (mmHg) O2 Sat by Pulse Oximetry 04/30/17 04/30/17 04/30/17 08:10 08:18 09:56 Temperature 98.4 F Pulse Rate 87 Respiratory 18 18 16 Rate Blood Pressure 170/67 (mmHg) O2 Sat by Pulse 95 Oximetry 04/30/17 04/30/17 04/30/17 10:02 10:03 12:02 Temperature Pulse Rate Respiratory 16 2 19 Rate Blood Pressure (mmHg) O2 Sat by Pulse Oximetry 04/30/17 04/30/17 12:03 12:09 Temperature Pulse Rate Respiratory 19 18 Rate Blood Pressure (mmHg) O2 Sat by Pulse Oximetry Oxygen Devices in Use Now: None Appearance: Patient is a 71yo male who appears stated age sitting up in the chair in [facility]. Eyes: No Scleral Icterus, PERRLA Ears/Nose/Mouth/Throat: NL Teeth, Lips, Gums, Clear Oropharnyx, Mucous Membranes Moist Neck: NL Appearance and Movements; NL JVP, Trachea Midline Respiratory: Symmetrical Chest Expansion and Respiratory Effort, Clear to Auscultation Cardiovascular: NL Sounds; No Murmurs; No JVD, RRR, No Edema, - - Pulses 2+ in the Bilateral Radial, Dorsalis Pedis, and Posterior Tibialis areas. Abdominal: NL Sounds; No Tenderness; No Distention, No Hepatosplenomegaly Lymphatic: No Cervical Adenopathy Extremities: No Clubbing, Cyanosis Skin: - - Dry red rash in intertriginous groin fold improving since last exam. Scaly rash with central clearing on left hip and buttock stable since last exam. Decubitus ulcer in sacral area covered by wound vac. Neurological: Alert and Oriented x 3, - - Cranial Nerve II-XII intact. Strength 5/5 in the bilateral upper extremities. Sensation to light touch preserved in upper extremities. Paralyzed and insensate from the waist down. Result Diagrams: 04/24/17 14:11 04/24/17 14:11 Additional Lab and Data: Laboratory Tests 04/24/17 04/24/17 14:11 14:11 WBC 10.0 RBC 4.47 Hgb 12.2 L Hct 37 L MCV 84 MCH 27 MCHC 33 RDW 19 H Plt Count 333 MPV 8 Neut % (Auto) 51.5 Lymph % (Auto) 30.6 Conway % (Auto) 14.4 H Eos % (Auto) 2.5 Baso % (Auto) 1.0 Absolute Neuts (auto) 5.1 Absolute Lymphs (auto) 3.1 Absolute Monos (auto) 1.4 H Absolute Eos (auto) 0.2 Absolute Basos (auto) 0.1 Absolute Nucleated RBC 0 Nucleated RBC % 0 Sodium 137 Potassium 4.0 Chloride 101 Carbon Dioxide 31 Anion Gap 5 BUN 33 H Creatinine 1.16 Est GFR ( Amer) 79.8 Est GFR (Non-Af Amer) 62.1 BUN/Creatinine Ratio 28.4 H Glucose 131 H Calcium 9.7 C-Reactive Protein 22.35 H Microbiology and Other Data: Microbiology 04/23/17 12:15 Stool Occult Blood (RUPALI) - Final Stool Assessment/Plan - Billing Assessment: Mr. 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 Patient is medically optimized for the planned surgery. Chest X-Ray and EKG done for preoperative testing are unremarkable. Laboratory testing stable with a hemoglobin of 12.2. The remainder of the laboratory values were reviewed and have been sent previously with other preoperative testing. It has previously been stated that the patient had a history of coronary artery disease. This was an error in dictation and the patient has no history of coronary artery disease per the patient. This was a dictational mistake in a previous history and physical and meant to read Carotid Artery Disease with stenosis in the bilateral proximal carotid arteries from 50-69% . As such there is no need for additional preoperative testing at this time. According to the Surgical Risk Calculator from the [employer] website the patient's risk of a serious complication is 18.2 percent as compared to an average risk of 16.7%. Additional information from the risk calculator is attached. Attending: Silva Chang
--- NOTE | 2017-04-30 18:53 | PN ---
Progress Note - Progress Note Date of Service: 04/30/17 Note: Face to Face Wheelchair Evaluation Kavon Merino is known to me. 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 He had debulking surgeries many years ago, and had radiation therapy as well. Radiation and chemotherapy were both tried and did not help. 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 When I first met him in 2011, he was still ambulatory with bilateral AFOs for short distances and used a manual wheelchair for longer distances. As time has progressed, he has become less and less able to ambulate even short distances. He has always had pain as a result of his tumor invading the lumbar vertebrae, but over the past two years his pain has increased. Starting last fall the pain increased quite a bit and starting in Nov, 2016, the pain increased dramatically. His pain medications were increased, and this led to a hospitalization over the 09 of January when he forgot to catheterize himself for a few days and went into renal failure. His medications were cut back, but then he had more pain. He became increasingly bed bound, as propelling a wheelchair and sitting in a wheelchair were too painful. He had a second hospitalization and developed a large bedsore. He will be transferring to [place] for a muscle flap to cover the area. He also has lost the ability to do a stand pivot transfer and is using a slide board. He has a neurogenic bowel and bladder as a rsult of the tumor. He was emptying his bladder with intermittent catheterization, but now has a arriaga to keep the bedsore clean. He has been using a bedpan in the hospital, but was transferring on to a commode at home. As a result of the tumor. Obi has limited sensation below his waist and almost no movement in the legs. The tumor causes significant pain and limits his ability to propel a manual wheelchair around the house. He gets swelling and edema in his legs when he sits for a while. He is no longer able to ambulate or stand from a chair. PAST MEDICAL HISTORY: Coronary artery disease, Chronic kidney disease, MATY, HTN SOCIAL HISTORY: He lives with his in a one story house. They have a wheelchair accessible van Current Medications Acetaminophen (Tylenol Tab*) 650 mg PO Q6H PRN PRN Reason: FEVER/PAIN Ascorbic Acid (Vitamin C Tab*) 500 mg PO DAILY [facility] Last Admin: 04/30/17 10:01 Dose: 500 mg Aspirin (Aspirin Ec Low Dose*) 81 mg PO DAILY [facility] Last Admin: 04/30/17 10:02 Dose: 81 mg Bisacodyl (Dulcolax Supp*) 10 mg MA DAILY PRN PRN Reason: CONSTIPATION Cholecalciferol (Vitamin D Tab*) 5,000 units PO DAILY [facility] Last Admin: 04/30/17 10:02 Dose: 5,000 units Cyanocobalamin (Vitamin B12 Tab*) 1,000 mcg PO DAILY [facility] Last Admin: 04/30/17 10:02 Dose: 1,000 mcg Diphenoxylate HCl/Atropine (Lomotil Tab*) 1 tab PO QID [facility] Last Admin: 04/30/17 17:35 Dose: 1 tab Docusate Sodium (Colace Cap*) 100 mg PO BID PRN PRN Reason: CONSTIPATION Econazole Nitrate (Econazole 1 % Cream (Nf)) 1 applic TOPICAL DAILY [facility] Last Admin: 04/30/17 08:20 Dose: 1 applic Enoxaparin Sodium (Lovenox(*)) 40 mg SUBCUT Q24H [facility] Stop: 04/30/17 20:01 Last Admin: 04/29/17 20:15 Dose: 40 mg Fentanyl (Duragesic Patch 75 Mcg/Hr*) 75 mcg TRANSDERM Q72H [facility] Last Admin: 04/27/17 20:02 Dose: 75 mcg Ferrous Gluconate (Fergon Tab*) 324 mg PO BID [facility] Last Admin: 04/30/17 10:02 Dose: 324 mg Folic Acid (Folvite Tab*) 0.5 mg PO DAILY [facility] Last Admin: 04/30/17 10:01 Dose: 0.5 mg Furosemide (Lasix Tab*) 40 mg PO DAILY [facility] Last Admin: 04/30/17 10:01 Dose: 40 mg Heparin Sodium (Porcine) (Heparin Flush Picc/Ml/Cvc(*)) 1 ml FLUSH 0600,1800 [facility] PRN Reason: Protocol Last Admin: 04/30/17 17:30 Dose: 1 ml Hydrocortisone (Hytone Cream 1%*) 1 applic TOPICAL TID [facility] Last Admin: 04/30/17 14:08 Dose: 1 applic Ceftriaxone Sodium 2 gm/ (Sodium Chloride) 100 mls @ 200 mls/hr IVPB Q24H [facility] Last Admin: 04/30/17 09:55 Dose: 200 mls/hr Lactobacillus Rhamnosus (Culturelle*) 1 cap PO BID [facility] Last Admin: 04/30/17 10:01 Dose: 1 cap Metronidazole (Flagyl Tab*) 500 mg PO BID [facility] Last Admin: 04/30/17 10:02 Dose: 500 mg Omeprazole (Prilosec Cap*) 40 mg PO 0600 [facility] Last Admin: 04/30/17 06:12 Dose: 40 mg Ondansetron HCl (Zofran Odt Tab*) 4 mg PO Q8H PRN PRN Reason: NAUSEA/VOMITING Oxycodone HCl (Roxycodone Tab*) 10 mg PO AC [facility] Last Admin: 04/30/17 17:22 Dose: 10 mg Pharmacy Profile Note (Fentanyl Patch Check Q Shift) 1 note N/A 0700,1900 [facility] Last Admin: 04/30/17 18:38 Dose: 1 note Potassium Chloride (Klor Con Er Tab*) 10 meq PO DAILY [facility] Last Admin: 04/30/17 10:02 Dose: 10 meq Pregabalin (Lyrica Cap(*)) 150 mg PO TID [facility] Last Admin: 04/30/17 14:05 Dose: 150 mg Zinc Sulfate (Zinc-220 Cap*) 220 mg PO DAILY [facility] Last Admin: 04/30/17 10:02 Dose: 220 mg EXAM: HEENT: EOMI, NC/AT LUNGS: CTA HEART: S1, S2 ABDOMEN: Soft EXTREMITIES: Decreased bulk and tone in both lower extremities. Normal in UEs NEUROLOGIC: Alert, oriented. Muscle strength 5/5 in UEs. 2/5 hip flexion, quads trace, absent DF and PF. decreased sensation in legs SKIN: Large pressure ulcer over buttock area ASSESSMENT: Paraplegia secondary to ependymoma Large Pressure Ulcer Neurogenic bowel and bladder PLAN: I believe the patients deteriorating neurologic status qualifies him for a power wheelchair. His pain will not allow him to use a manual wheelchair to get around his house and to perform his ADLs. A scooter would not provide enough supprt, given his pressure ulcer history and inadequate core abdominal strength. He will need a power wheelchair with Tilt in Space to allow for pressure relief. To deal with his lower extremity edema, he will need power elevating leg rests. He will need power recline on the seat back to relieve pressure over the coccyx when legs are elevating/elevated. Given his pressure ulcer history, I would like him to have a high profile ROHO cushion. We will hope to order the chair for after his flap
[2017-04-30] MEDS: fentaNYL PATCH 75 MCG/HR* 75 MCG TRANSDERM SCH (20:04)
[2017-04-30] MEDS: Enoxaparin(*) 40 MG/0.4 ML SYR SUBCUT SCH (20:20)
[2017-05-01] MEDS: Omeprazole CAP* 20 MG PO SCH (06:09)
[2017-05-01 06:26] LABS: Hematocrit 34 % (42-52); Hemoglobin 11.3 g/dl (14.0-18.0); Mean Corpuscular HGB Conc 33 g/dl (31-36); Mean Corpuscular Hemoglobin 28 pg (27-31); Mean Corpuscular Volume 83 fL (80-94); Mean Platelet Volume 8 um3 (7.4-10.4); Red Blood Count 4.09 10^6/ul (4.0-5.4); Red Cell Distribution Width 18 % (10.5-15); White Blood Count 8.6 10^3/ul (3.5-10.8)
[2017-05-01 06:40] LABS: BUN/Creatinine Ratio 32.8 (8-20); C Reactive Protein 17.05 mg/L (< 5.00); Calcium 10.2 mg/dL (8.6-10.3); EGFR African American 71.2 (>60); EGFR Non-African American 55.4 (>60)
[2017-05-01] MEDS: fentaNYL Patch Check Q Shift 1 NOTE SCH ×2 (06:49→18:47)
[2017-05-01] MEDS: oxyCODONE TAB* 5 MG TAB PO SCH ×3 (07:34→16:46)
[2017-05-01] MEDS: Folic Acid TAB* 1 MG PO SCH (09:37)
[2017-05-01] MEDS: Lactobacillus Acidophilu (GG)* 1 CAP CAP PO SCH ×2 (09:37→21:25)
[2017-05-01] MEDS: metroNIDAZOLE TAB* 250 MG PO SCH ×2 (09:37→21:25)
[2017-05-01] MEDS: Pregabalin CAP(*) 50 MG PO SCH ×3 (09:38→21:25)
[2017-05-01] MEDS: Diphenoxylat/Atrop 2.5-0.025M* 1 TAB PO SCH ×4 (09:38→21:24)
[2017-05-01] MEDS: Potassium Chlor TAB* 10 MEQ TAB.ER PO SCH (09:38)
[2017-05-01] MEDS: Ascorbic Acid TAB* 500 MG PO SCH (09:38)
[2017-05-01] MEDS: Cholecalciferol TAB* 1000 UNITS PO SCH (09:38)
[2017-05-01] MEDS: Aspirin EC Low Dose* 81 MG TAB.EC PO SCH (09:38)
[2017-05-01] MEDS: Ferrous Gluconate TAB* 324 MG TAB PO SCH ×2 (09:38→21:25)
[2017-05-01] MEDS: Furosemide TAB* 40 MG PO SCH (09:38)
[2017-05-01] MEDS: Zinc Sulfate CAP* 220 MG PO SCH (09:39)
[2017-05-01] MEDS: Cyanocobalamin TAB* 500 MCG PO SCH (09:39)
[2017-05-01] MEDS: Hydrocortisone 1% CREAM* 30 GM TUBE TOPICAL SCH ×3 (11:14→21:26)
[2017-05-01] MEDS: Econazole 1% CREAM (NF) 1 TUBE TOPICAL SCH (11:14)
[2017-05-01 19:49] VITALS: BP 146/60
[2017-05-02] MEDS: Omeprazole CAP* 20 MG PO SCH (05:16)
[2017-05-02] MEDS: fentaNYL Patch Check Q Shift 1 NOTE SCH (05:22)
--- NOTE | 2017-05-02 05:45 | DS ---
DISCHARGE SUMMARY: DATE OF ADMISSION: 04/19/17 DATE OF DISCHARGE: 05/02/17 PRIMARY CARE PHYSICIAN: Dr. Griffiths. MY ATTENDING WHILE IN THE HOSPITAL: Dr. Yg Navarro* (dictated by MELANIE Marx). PRIMARY DISCHARGE DIAGNOSES: Acute osteomyelitis of the sacrum, stage IV sacral decubitus ulcers, sepsis, diarrhea, ependymoma, neurogenic bowel and bladder. SECONDARY DIAGNOSES: Obstructive sleep apnea, chronic renal failure stage 3, intrinsic asthma, as well as carotid artery stenosis. CONSULTATIONS WHILE IN THE HOSPITAL: Dr. Jeevan Sexton with Infectious Disease, Dr. Stanislaw Harmon with General Surgery. PROCEDURES: None. STUDIES DONE WHILE IN THE HOSPITAL: Chest x-ray from 04/24/17 read as no active cardiopulmonary disease noted and electrocardiogram from 04/26/17 shows normal sinus rhythm, normal axis, no ST segment changes, no blocks, no other abnormalities. MEDICATIONS AT DISCHARGE: 1. Potassium chloride. 2. Klor-Con sprinkle 10 mEq p.o. daily. 3. Vitamin D3 5000 units p.o. daily. 4. Tylenol 600 mg p.o. q. 6 hours as needed for pain. 5. Vitamin C 500 mg p.o. daily. 6. Aspirin 81 mg p.o. daily. 7. Vitamin B12 1000 mg p.o. daily. 8. Docusate 100 mg p.o. b.i.d. as needed for constipation. 9. Ferrous gluconate 324 mg p.o. b.i.d. 10. Folic acid 0.5 mg p.o. daily. 11. Furosemide 40 mg p.o. daily. 12. Culturelle 1 cap p.o. b.i.d. 13. Nystatin cream 1 application topical b.i.d. 14. Omeprazole 40 mg p.o. daily. 15. Zofran 4 mg p.o. q. 8 hours as needed for nausea. 16. Lyrica 150 mg p.o. t.i.d. 17. Zinc sulfate 220 mg p.o. daily. 18. Flagyl 500 mg p.o. b.i.d. 19. Amaryl 1 tab p.o. q.i.d. as needed for diarrhea. 20. Econazole 1 application topical daily. 21. Heparin flush 1 flush 0600 and 1800. 22. Hydrocortisone 1 application topical daily. 23. Ceftriaxone 2 g IV q. 24 hours. 24. Fentanyl patch 75 mg transdermally q. 72 hours. 25. Oxycodone 10 mg p.o. a.c. scheduled. HOSPITAL COURSE: This is a brief summary of the patient's hospital course since going swing status. For more detail, please see the admission notes from Dr. Jay Pacheco on 03/29/17 and the discharge summary from Kelly Cuellar on 04/19/17. In brief, the patient is a 71-year-old male with past medical history significant as above, who has been admitted to the hospital in various capacities since 03/10/17. Patient was initially admitted for confusion related to sepsis from a urinary tract infection and developed diarrhea from the antibiotics. Patient was then sent to [facility] within the hospital for rehab, but was then readmitted to the short-stay surgical floor on 03/29/17 for intensive nursing care and management for his sacral decubitus ulcer, moving towards the plan of a flap at [place] at some point. Since then patient has been stabilized with pain control and has continued to receive IV antibiotics consisting of ceftriaxone and oral antibiotics consisting of metronidazole daily for his osteomyelitis of the sacrum. Patient has improved dramatically and is able to transfer using a slide board at this point, which he was not able to do at admission. The patient also has adequate pain control at all times, being able to sit up for all meals with oxycodone. Patient's sacral decubitus ulcer has also improved dramatically with the use of Medihoney and wet-to-dry dressings, which were then transitioned to a wound VAC, which he is tolerating well. Patient has denied any systemic symptoms since his transition to swing status, 03/29/17. The patient has a rash in his groin and a rash on his hip which are consistent with aguila and tinea respectively, and both of which are responding well to econazole cream. Patient will be discharged at this time with ambulance transfer to [facility] for a muscle flap procedure for his sacral decubitus ulcer on 05/02/[address] Yassine Blankenship, with the plan for a VAC placement afterwards. PHYSICAL EXAM ON DAY OF DISCHARGE: General: Patient is a 71-year-old male who appears stated age and is lying comfortably in the bed in no acute distress. Vital signs from 05/01/17 at 1111 - temperature 98.3, pulse 85, respiratory rate 17, oxygen saturation 98% on room air, blood pressure 146/60. HEENT: Head normocephalic, atraumatic. Sclerae anicteric. No conjunctival injection. Mucous membranes moist. Clear oropharynx. Neck: Supple, nontender. No lymphadenopathy. No carotid bruit auscultated. Cardiac: Regular rate and rhythm. No clicks, murmurs, gallops, or rubs. Pulses 2+ in the bilateral dorsalis pedis, posterior tibialis, and radial areas. No edema. Respiratory: Clear to auscultation bilaterally. No wheezes, rales, or rhonchi. Abdomen: Distended, similar with previous exam. Bowel sounds are present and normoactive in all quadrants, nontender. No hepatosplenomegaly. No mass. Genitourinary: No suprapubic tenderness or CVA tenderness. Chronic indwelling Fischer present. Draining clear yellow urine without blood. Skin: There is an almost resolved scaly rash with central clearing on the patient's left buttock, which has been improving significantly with treatment with econazole cream. There is also a wet rash on the patient's groin with satellite lesions consistent with aguila, which has also been improving greatly with econazole cream. The patient has a popped blister, that had at admission a black dry skin flap over it, which has mostly come off at this point, revealing pink skin without signs of inflammation or erosion. Neuro: Cranial nerves II through XII grossly intact. Her strength preserved 5/5 in the patient's upper extremities. The patient is paralyzed and insensate from the waist down. Psychiatric: Calm, pleasant, and cooperative. DIAGNOSTIC STUDIES/LABORATORY DATA: Laboratory data from 05/01/17 white blood cell count 8.6, hemoglobin 11.3, RDW 18, platelet count 256. Sodium 140, potassium 4.0, chloride 104, carbon dioxide 31, anion gap 5, BUN 42, creatinine 1.28, glucose 99, CRP 17.5. DISCHARGE PLAN: Patient will be discharged directly to [facility] for the planned flap. Patient is medically optimized for the planned procedure and will be followed by the surgical team after the surgery is complete. The patient will be continued on medications as above at this time including ceftriaxone 2 g IV daily and metronidazole 500 mg p.o. b.i.d. Patient after the surgery can be transitioned to p.o. antibiotics entirely for the duration of his treatment, which is dependent on his response to antibiotic therapy. Patient's chronic diarrhea has significantly improved since his admission, but he should receive Lomotil after every bowel movement. The patient should receive oxycodone as scheduled before meals so he can sit up to eat his meal without pain. Patient should attempt to eat several small, high protein meals daily. The patient should be attempted to get out of bed to chair once daily and taken outside preferably to help with his mood. Patient should be turned and positioned at least every 2 hours for help with the sacral ulcer and for monitoring of perineal hygiene. Activity as tolerated. Patient should continue to work with PT and OT at the new facility. Patient is on a regular unrestricted diet. TIME SPENT: Approximately 60 minutes was spent on this discharge, 20 minutes of which was spent [id number] with the patient obtaining history and physical and discussing treatment options. MELANIE MARX [id number]/[facility] #: [id number] VALERI
== END 2017-05-02 06:05 | disposition short-term general hospital (02) | DRG 539 ==
LOC: SSU 17:00
PROVIDERS: ADMIT Internal Medicine; ATTEND Internal Medicine
DX: M46.28 Osteomyelitis of vertebra, sacral and sacrococcygeal region (principal); L89.154 Pressure ulcer of sacral region, stage 4; B37.89 Other sites of candidiasis; K59.2 Neurogenic bowel, not elsewhere classified; G82.20 Paraplegia, unspecified; N31.9 Neuromuscular dysfunction of bladder, unspecified; I65.29 Occlusion and stenosis of unspecified carotid artery; N18.3 Chronic kidney disease, stage 3 (moderate); D64.9 Anemia, unspecified; R19.7 Diarrhea, unspecified; Z79.82 Long term (current) use of aspirin; G47.33 Obstructive sleep apnea (adult) (pediatric); J45.909 Unspecified asthma, uncomplicated; Z85.841 Personal history of malignant neoplasm of brain; I12.9 Hypertensive chronic kidney disease with stage 1 through stage 4 chronic kidney disease, or unspecified chronic kidney disease; K21.9 Gastro-esophageal reflux disease without esophagitis; I25.10 Atherosclerotic heart disease of native coronary artery without angina pectoris; Z92.3 Personal history of irradiation; Z92.21 Personal history of antineoplastic chemotherapy; B35.4 Tinea corporis; Z79.01 Long term (current) use of anticoagulants
CPT/HCPCS: 36415; 71020; 80048; 82272; 85025; 86140; 93005; 97530; A9270-GY; J0696; J1650

== ENCOUNTER 2017-05-14 15:44 | Inpatient (IN) | payer MEDICARE ==
[2017-05-14] MEDS ORDERED: Vancomycin per Pharmacy* NOTE FOLLOW UP PRN (16:46)
[2017-05-14] MEDS ORDERED: Vancomycin(*) 0 MG in NS 0.9% 250 ML* 250 ML IVPB SCH (17:00)
[2017-05-14] MEDS: fentaNYL PATCH 75 MCG/HR* 75 MCG TRANSDERM SCH (17:16)
[2017-05-14] MEDS: Enoxaparin(*) 40 MG/0.4 ML SYR SUBCUT SCH (17:23)
[2017-05-14] MEDS: oxyCODONE TAB* 5 MG TAB PO PRN (18:40)
[2017-05-14] MEDS: fentaNYL Patch Check Q Shift 1 NOTE SCH (19:17)
[2017-05-14] MEDS: Lactobacillus Acidophilu (GG)* 1 CAP CAP PO SCH (20:03)
[2017-05-14] MEDS: Ferrous Gluconate TAB* 324 MG TAB PO SCH (20:03)
[2017-05-14] MEDS: Furosemide TAB* 40 MG PO SCH (20:03)
[2017-05-14] MEDS: Ciprofloxacin TAB* 750 MG PO SCH (20:04)
[2017-05-14] MEDS: Pregabalin CAP(*) 50 MG PO SCH (20:04)
[2017-05-14] MEDS: metroNIDAZOLE TAB* 250 MG PO SCH (20:04)
[2017-05-14] MEDS: Diphenoxylat/Atrop 2.5-0.025M* 1 TAB PO PRN (20:04)
[2017-05-14] MEDS: Hydrocortisone 1% CREAM* 30 GM TUBE TOPICAL SCH (20:07)
--- NOTE | 2017-05-14 20:08 | HP ---
HISTORY AND PHYSICAL: DATE OF ADMISSION TO SWING BED STATUS: 05/14/17 Admitted from [facility]. PRIMARY CARE PROVIDER: Dr. Griffiths. ATTENDING PHYSICIAN: Dr. Alma Alexandra * (report dictated by Coretta Anthony NP). REASON FOR ADMISSION: Swing bed status for IV antibiotics and care while on bedrest. HISTORY OF PRESENT ILLNESS: Mr. Merino is a 71-year-old paraplegic male, who had an extended hospitalization here at [facility] from 03/29/17 to 04/19/17. During that time, he was admitted and treated for acute osteomyelitis to the sacrum and a stage IV sacral decubitus ulcer as well as sepsis and antibiotic- associated diarrhea. The patient is a paraplegic and has history of neurogenic bowel and bladder, multiple back surgeries, obstructive sleep apnea, and chronic renal insufficiency. For full detail of that hospitalization, please refer to discharge summary dictated by Cony Medrano NP, on 04/19/17. The patient was placed on swing bed status on 04/19/17 while awaiting transfer to [facility] for plastic surgery and flap to the decubitus ulcer. On 05/02/17, the patient was discharged to [facility] and taken to the operating room by Dr. Blankenship, plastic surgeon, for a debridement of the sacral wound and right and left gluteus rosa maria flaps. The patient had a fairly uncomplicated hospitalization at [facility]. Infectious Disease was consulted and recommended 6 weeks of treatment, recommendations were to treat with vancomycin, ciprofloxacin as well as Flagyl, and these were started on 05/02/17. In regards to activity, the patient was only able to use wedge pillows for meals and is on complete bed rest. During the hospitalization, the patient's vancomycin had to be adjusted based on his creatinine. Today, the patient was transferred back to our institution in stable condition. Currently, the patient reports pain as during transit, his fentanyl patch was dislodged and he no longer has it on. He denies any chest pain or shortness of breath. Hospitalists were asked to admit this patient on swing status for further IV antibiotics and care prior to eventual discharge home. PAST MEDICAL HISTORY: Sacral osteomyelitis, currently receiving treatment; acute osteomyelitis of the sacrum; stage IV sacral decubitus ulcer; neurogenic bowel and bladder; obstructive sleep apnea; chronic renal failure; intrinsic asthma; carotid artery stenosis; ependymoma PAST SURGICAL HISTORY: Four spinal surgeries at [facility] for the ependymoma over the years, appendectomy after a ruptured appendix, right carotid endarterectomy. MEDICATIONS: At the time of transfer back to our institution: 1. Vancomycin 1 g q.24 hours. 2. Metronidazole 500 mg oral twice daily. 3. Cipro 750 mg oral twice daily. 4. Zinc 220 mg oral daily. 5. Prilosec 40 mg oral daily. 6. Nystatin 1 application topical twice daily. 7. Culturelle 1 capsule oral twice daily. 8. Hydrocortisone 1 application topical 3 times daily. 9. Lasix 40 mg oral twice daily. 10. Folic acid 0.5 mg oral daily. 11. Fergon 324 mg oral twice daily. 12. Econazole 1 application topical daily. 13. Lomotil 1 tab 4 times a day as needed for diarrhea. 14. Vitamin B12 1000 mcg oral daily. 15. Vitamin D3 5000 units oral daily. 16. Aspirin 81 mg oral daily. 17. Vitamin C 500 mg oral daily. 18. Tylenol 650 mg oral every 6 hours as needed. 19. Oxycodone 10 mg oral 3 times daily as needed, max dose 40 mg. 20. Fentanyl patch 75 mcg transdermal q.72 hours. 21. Lyrica 150 mg oral 3 times daily. ALLERGIES: LIPITOR, CHICKEN, VANILLA, and GRAPES. FAMILY HISTORY: Notable for father, who of Parkinson's disease. Mother is alive, age 99. SOCIAL HISTORY: He is disabled, , his is the surrogate decision maker in the event the patient cannot make decisions for himself. He does not smoke, use alcohol, or any other drugs. REVIEW OF SYSTEMS: I performed a 14-point review of systems. All the pertinent positives and negatives are mentioned in the history of present illness. The remaining review of systems is negative. PHYSICAL EXAMINATION GENERAL APPEARANCE: The patient is alert, pleasant, and appeared to be in no apparent distress. VITAL SIGNS: Temperature 99.6, heart rate 80, respiratory rate 15, blood pressure 147/65, oxygen saturation 98%. HEENT: Normocephalic/atraumatic. Pupils are equal and reactive to light. Extraocular movements were intact. NECK: Neck was supple. There is no lymphadenopathy noted. RESPIRATORY: There was no accessory muscle use and lungs were clear to auscultation. CARDIAC: S1, S2 were crisp. There were no murmurs, rubs, or gallops heard. ABDOMEN: Soft, nontender, nondistended. There are bowel sounds x4. EXTREMITIES: There was no lower extremity edema. DP and PT pulses were 2+ and symmetric. MUSCULOSKELETAL: There is no clubbing or cyanosis noted. The patient exhibited equal strength in upper extremities, he has [id number] strength in lower extremities. NEUROLOGICAL: Cranial nerves II through XII are intact. The patient moves all extremities. No sensation on lower extremities. PSYCH: The patient is alert and oriented x3. SKIN: The patient has stapled incisions on his buttocks with bilateral SANDRA drains with sanguineous drainage. Jose are present. There is minimal erythema. The patient does have stool present at rectum. The patient also has an area at the base of his left ankle that appears to be a healing pressure ulcer. The patient's states that this is present at the time of transfer to [facility]. LABORATORY DATA: No current laboratory data to report. IMPRESSION: This is a 71-year-old male, who has a long history of ependymoma of the spine which led to chronic back pain and paresis of lower extremities, who is now admitted to swing bed status after a bilateral skin flap placement for sacral decubitus ulcer with osteomyelitis. ASSESSMENT AND PLAN: 1. Status post bilateral gluteal flap reconstruction of stage IV sacral pressure ulcer. The patient needs to be on strict bed rest. The patient can only have 2 wedges for meal. This will last at least for 3 weeks. The plan is to have telemedicine with his surgeon, Dr. Blankenship, from [facility] on a weekly basis. The incision should be kept clean, dry, and intact without any dressing. Rectum should be maintained clean as possible. Wound care was consult so that we can document by photo his incision on a weekly basis. 2. Sacral osteomyelitis. Recommendations from Infectious Disease at [facility] was 6 weeks of treatment from 05/02/17. Their recommendations were for vancomycin, Flagyl 500 q.12, and ciprofloxacin 750 q.12. Cultures grew Enterococcus faecalis and Staphylococcus epidermidis. Continue this regimen for 6 weeks totla (start 05/02/2017). 3. Chronic pain. Fentanyl patch and p.r.n. oxycodone will continue. Lyrica will continue. 4. Chronic kidney disease, stage 3. Creatinine will be checked in the morning as well as vanco trough and vanco and other antibiotics will be dosed appropriately. 5. Gastroesophageal reflux disease. Prilosec will continue. 6. Hypertension. Blood pressure is controlled. Twice a day Lasix will continue. 7. Neurogenic bladder. Fischer was inserted at the end of March and it will be changed today and every 30 days after today. 8. Fluids, electrolytes, and nutrition. The patient will have a high-protein diet. 9. DVT prophylaxis. The patient is high risk. He will have SCDs and Lovenox. 10. Code status is full. 11. Disposition. The plan is for the patient to remain on swing bed status until he has been given clearance by his plastic surgeon to have the mobility to do transverse independently. At that point, he will be stable to be discharged to home. In addition, the patient is here for IV antibiotics. TIME SPENT: Time for this admission was 60 minutes, and 35 minutes was spent with the patient discussing medications, history, and events that occurred at [facility] and current plan of care. Reviewed by CORETTA ANTOHNY NP 05/15/2017 1730 [id number]/[facility] #: [id number] VALERI
[2017-05-14] MEDS: Nystatin CREAM* 15 GM TUBE TOPICAL SCH (20:09)
[2017-05-14] MEDS ORDERED: metroNIDAZOLE TAB* 250 MG PO SCH (21:00)
[2017-05-14] MEDS ORDERED: fentaNYL Patch Check Q Shift 1 NOTE SCH (23:00)
[2017-05-15] MEDS ORDERED: Vancomycin Random Level* NOTE FOLLOW UP ONE (06:00)
[2017-05-15] MEDS: fentaNYL Patch Check Q Shift 1 NOTE SCH ×2 (07:21→19:12)
[2017-05-15] MEDS: oxyCODONE TAB* 5 MG TAB PO PRN ×3 (08:39→18:24)
[2017-05-15] MEDS: Ascorbic Acid TAB* 500 MG PO SCH (08:39)
[2017-05-15] MEDS: Zinc Sulfate CAP* 220 MG PO SCH (08:39)
[2017-05-15] MEDS: Lactobacillus Acidophilu (GG)* 1 CAP CAP PO SCH ×2 (08:39→20:21)
[2017-05-15] MEDS: Cholecalciferol TAB* 1000 UNITS PO SCH (08:39)
[2017-05-15] MEDS: Ferrous Gluconate TAB* 324 MG TAB PO SCH ×2 (08:39→20:21)
[2017-05-15] MEDS: Aspirin EC Low Dose* 81 MG TAB.EC PO SCH (08:40)
[2017-05-15] MEDS: Omeprazole CAP* 20 MG PO SCH (08:40)
[2017-05-15] MEDS: metroNIDAZOLE TAB* 250 MG PO SCH ×2 (08:40→20:20)
[2017-05-15] MEDS: Cyanocobalamin TAB* 500 MCG PO SCH (08:40)
[2017-05-15] MEDS: Furosemide TAB* 40 MG PO SCH ×2 (08:40→20:19)
[2017-05-15] MEDS: Ciprofloxacin TAB* 750 MG PO SCH ×2 (08:40→20:26)
[2017-05-15 08:41] LABS: ABS Basophils 0.1 10^3/ul (0-0.2); ABS Eosinophils 0.3 10^3/ul (0-0.6); ABS Lymphocytes 3.3 10^3/ul (1.0-4.8); ABS Monocytes 1.4 10^3/ul (0-0.8); ABS Neutrophils 5.8 10^3/ul (1.5-7.7); ABS Nucleated RBC 0 10^3/ul; Eosinophil % 3.1 % (0-6); Hematocrit 38 % (42-52); Hemoglobin 12.9 g/dl (14.0-18.0); Lymphocyte % 29.9 % (25-47); Mean Corpuscular HGB Conc 34 g/dl (31-36); Mean Corpuscular Hemoglobin 28 pg (27-31); Mean Corpuscular Volume 83 fL (80-94); Mean Platelet Volume 8 um3 (7.4-10.4); Nucleated Red Blood Cells % 0; Platelet Count 244 10^3/ul (150-450); Red Blood Count 4.61 10^6/ul (4.0-5.4); Red Cell Distribution Width 18 % (10.5-15); White Blood Count 10.9 10^3/ul (3.5-10.8)
[2017-05-15] MEDS: Pregabalin CAP(*) 50 MG PO SCH ×3 (08:41→20:19)
[2017-05-15] MEDS: Folic Acid TAB* 1 MG PO SCH (08:47)
[2017-05-15] MEDS: Nystatin CREAM* 15 GM TUBE TOPICAL SCH ×2 (08:56→22:20)
[2017-05-15] MEDS: Econazole 1% CREAM (NF) 1 TUBE TOPICAL SCH (08:56)
[2017-05-15 09:03] LABS: EGFR Non-African American 47.6 (>60)
[2017-05-15] MEDS: Hydrocortisone 1% CREAM* 30 GM TUBE TOPICAL SCH ×3 (10:00→20:12)
[2017-05-15] MEDS: Vancomycin(*) 1,000 MG in NS 0.9% 250 ML* 250 ML IVPB SCH ×2 (11:40→22:17)
[2017-05-15] MEDS: Alteplase (CATHFLO)* 2 MG VIAL IV PRN (14:13)
[2017-05-15] MEDS: Enoxaparin(*) 40 MG/0.4 ML SYR SUBCUT SCH (17:38)
[2017-05-16] MEDS: fentaNYL Patch Check Q Shift 1 NOTE SCH ×2 (07:11→19:05)
[2017-05-16] MEDS: Omeprazole CAP* 20 MG PO SCH (07:55)
[2017-05-16] MEDS: Cholecalciferol TAB* 1000 UNITS PO SCH (09:17)
[2017-05-16] MEDS: Lactobacillus Acidophilu (GG)* 1 CAP CAP PO SCH ×2 (09:17→20:17)
[2017-05-16] MEDS: Ciprofloxacin TAB* 750 MG PO SCH ×2 (09:17→20:16)
[2017-05-16] MEDS: Ferrous Gluconate TAB* 324 MG TAB PO SCH ×2 (09:17→20:18)
[2017-05-16] MEDS: Zinc Sulfate CAP* 220 MG PO SCH (09:17)
[2017-05-16] MEDS: Furosemide TAB* 40 MG PO SCH ×2 (09:17→20:18)
[2017-05-16] MEDS: Ascorbic Acid TAB* 500 MG PO SCH (09:17)
[2017-05-16] MEDS: Folic Acid TAB* 1 MG PO SCH (09:18)
[2017-05-16] MEDS: Cyanocobalamin TAB* 500 MCG PO SCH (09:18)
[2017-05-16] MEDS: metroNIDAZOLE TAB* 250 MG PO SCH ×2 (09:18→20:17)
[2017-05-16] MEDS: Pregabalin CAP(*) 50 MG PO SCH ×3 (09:18→20:16)
[2017-05-16] MEDS: Nystatin CREAM* 15 GM TUBE TOPICAL SCH ×2 (09:19→20:17)
[2017-05-16] MEDS: Hydrocortisone 1% CREAM* 30 GM TUBE TOPICAL SCH ×3 (09:19→20:17)
[2017-05-16] MEDS: Econazole 1% CREAM (NF) 1 TUBE TOPICAL SCH (09:19)
[2017-05-16] MEDS: Aspirin EC Low Dose* 81 MG TAB.EC PO SCH (09:20)
[2017-05-16] MEDS ORDERED: Vancomycin Trough Check NOTE FOLLOW UP ONE (10:00)
[2017-05-16] MEDS: Vancomycin(*) 1,000 MG in NS 0.9% 250 ML* 250 ML IVPB SCH (10:37)
[2017-05-16] MEDS: Enoxaparin(*) 40 MG/0.4 ML SYR SUBCUT SCH (17:24)
[2017-05-17] MEDS: fentaNYL Patch Check Q Shift 1 NOTE SCH ×2 (08:09→18:47)
[2017-05-17] MEDS: Lactobacillus Acidophilu (GG)* 1 CAP CAP PO SCH ×2 (08:10→20:49)
[2017-05-17] MEDS: Furosemide TAB* 40 MG PO SCH ×2 (08:10→20:49)
[2017-05-17] MEDS: Ciprofloxacin TAB* 750 MG PO SCH ×2 (08:10→20:49)
[2017-05-17] MEDS: metroNIDAZOLE TAB* 250 MG PO SCH ×2 (08:11→20:49)
[2017-05-17] MEDS: Pregabalin CAP(*) 50 MG PO SCH ×3 (08:11→20:49)
[2017-05-17] MEDS: Cholecalciferol TAB* 1000 UNITS PO SCH (08:11)
[2017-05-17] MEDS: Ferrous Gluconate TAB* 324 MG TAB PO SCH ×2 (08:11→20:49)
[2017-05-17] MEDS: Aspirin EC Low Dose* 81 MG TAB.EC PO SCH (08:11)
[2017-05-17] MEDS: Omeprazole CAP* 20 MG PO SCH (08:11)
[2017-05-17] MEDS: Cyanocobalamin TAB* 500 MCG PO SCH (08:11)
[2017-05-17] MEDS: Zinc Sulfate CAP* 220 MG PO SCH (08:11)
[2017-05-17] MEDS: Folic Acid TAB* 1 MG PO SCH (08:12)
[2017-05-17] MEDS: Ascorbic Acid TAB* 500 MG PO SCH (08:12)
[2017-05-17] MEDS: Nystatin CREAM* 15 GM TUBE TOPICAL SCH ×2 (08:16→20:53)
[2017-05-17] MEDS: Hydrocortisone 1% CREAM* 30 GM TUBE TOPICAL SCH ×3 (08:16→20:54)
[2017-05-17] MEDS: Vancomycin(*) 1,000 MG in NS 0.9% 250 ML* 250 ML IVPB SCH (09:39)
[2017-05-17 09:42] LABS: EGFR Non-African American 55.9 (>60)
[2017-05-17] MEDS: Econazole 1% CREAM (NF) 1 TUBE TOPICAL SCH (09:43)
[2017-05-17] MEDS: fentaNYL PATCH 75 MCG/HR* 75 MCG TRANSDERM SCH ×2 (17:34→17:36)
[2017-05-17] MEDS: Enoxaparin(*) 40 MG/0.4 ML SYR SUBCUT SCH (17:38)
[2017-05-17] MEDS: oxyCODONE TAB* 5 MG TAB PO PRN (17:55)
[2017-05-18 05:57] LABS: EGFR Non-African American 46.9 (>60)
[2017-05-18] MEDS: fentaNYL Patch Check Q Shift 1 NOTE SCH ×2 (07:04→19:19)
[2017-05-18] MEDS: Econazole 1% CREAM (NF) 1 TUBE TOPICAL SCH (07:30)
[2017-05-18] MEDS: Ferrous Gluconate TAB* 324 MG TAB PO SCH ×2 (08:07→20:17)
[2017-05-18] MEDS: Cyanocobalamin TAB* 500 MCG PO SCH (08:08)
[2017-05-18] MEDS: Omeprazole CAP* 20 MG PO SCH (08:08)
[2017-05-18] MEDS: metroNIDAZOLE TAB* 250 MG PO SCH ×2 (08:08→20:18)
[2017-05-18] MEDS: Folic Acid TAB* 1 MG PO SCH (08:08)
[2017-05-18] MEDS: Cholecalciferol TAB* 1000 UNITS PO SCH (08:08)
[2017-05-18] MEDS: Pregabalin CAP(*) 50 MG PO SCH ×3 (08:09→20:18)
[2017-05-18] MEDS: Zinc Sulfate CAP* 220 MG PO SCH (08:09)
[2017-05-18] MEDS: oxyCODONE TAB* 5 MG TAB PO PRN ×2 (08:09→16:47)
[2017-05-18] MEDS: Furosemide TAB* 40 MG PO SCH ×2 (08:09→20:17)
[2017-05-18] MEDS: Lactobacillus Acidophilu (GG)* 1 CAP CAP PO SCH ×2 (08:09→20:17)
[2017-05-18] MEDS: Ciprofloxacin TAB* 750 MG PO SCH ×2 (08:09→20:17)
[2017-05-18] MEDS: Aspirin EC Low Dose* 81 MG TAB.EC PO SCH (08:09)
[2017-05-18] MEDS: Ascorbic Acid TAB* 500 MG PO SCH (08:09)
[2017-05-18] MEDS: Nystatin CREAM* 15 GM TUBE TOPICAL SCH ×2 (08:10→20:41)
[2017-05-18] MEDS: Hydrocortisone 1% CREAM* 30 GM TUBE TOPICAL SCH ×3 (08:10→20:41)
[2017-05-18] MEDS ORDERED: Vancomycin Trough Check NOTE FOLLOW UP ONE (09:30)
[2017-05-18 10:18] LABS: Vancomycin Trough 15.9 mcg/mL
[2017-05-18] MEDS: Vancomycin(*) 1,000 MG in NS 0.9% 250 ML* 250 ML IVPB SCH (10:49)
[2017-05-18] MEDS: Enoxaparin(*) 40 MG/0.4 ML SYR SUBCUT SCH (16:47)
[2017-05-18 19:01] LABS: EGFR Non-African American 49.5 (>60)
[2017-05-19] MEDS: Acetaminophen TAB* 325 MG PO PRN (06:34)
[2017-05-19] MEDS: fentaNYL Patch Check Q Shift 1 NOTE SCH ×2 (07:02→18:35)
[2017-05-19] MEDS: Omeprazole CAP* 20 MG PO SCH (10:03)
[2017-05-19] MEDS: Furosemide TAB* 40 MG PO SCH ×2 (10:03→20:27)
[2017-05-19] MEDS: Cyanocobalamin TAB* 500 MCG PO SCH (10:03)
[2017-05-19] MEDS: Zinc Sulfate CAP* 220 MG PO SCH (10:03)
[2017-05-19] MEDS: Ferrous Gluconate TAB* 324 MG TAB PO SCH ×2 (10:03→20:28)
[2017-05-19] MEDS: Folic Acid TAB* 1 MG PO SCH (10:04)
[2017-05-19] MEDS: Ascorbic Acid TAB* 500 MG PO SCH (10:04)
[2017-05-19] MEDS: Ciprofloxacin TAB* 750 MG PO SCH ×2 (10:04→20:28)
[2017-05-19] MEDS: metroNIDAZOLE TAB* 250 MG PO SCH ×2 (10:04→20:28)
[2017-05-19] MEDS: Lactobacillus Acidophilu (GG)* 1 CAP CAP PO SCH ×2 (10:04→20:27)
[2017-05-19] MEDS: Cholecalciferol TAB* 1000 UNITS PO SCH (10:05)
[2017-05-19] MEDS: Pregabalin CAP(*) 50 MG PO SCH ×3 (10:05→20:27)
[2017-05-19] MEDS: Aspirin EC Low Dose* 81 MG TAB.EC PO SCH (10:05)
[2017-05-19] MEDS: Econazole 1% CREAM (NF) 1 TUBE TOPICAL SCH (10:06)
[2017-05-19] MEDS: Hydrocortisone 1% CREAM* 30 GM TUBE TOPICAL SCH ×3 (10:15→21:08)
[2017-05-19] MEDS: Nystatin CREAM* 15 GM TUBE TOPICAL SCH ×2 (10:15→21:08)
[2017-05-19] MEDS: Vancomycin(*) 1,000 MG in NS 0.9% 250 ML* 250 ML IVPB SCH (11:12)
[2017-05-19] MEDS: Enoxaparin(*) 40 MG/0.4 ML SYR SUBCUT SCH (17:08)
--- NOTE | 2017-05-19 18:36 | PN ---
Subjective Date of Service: 05/19/17 Interval History: rounded on patient spoke with him and his , Deedee. good spirits checking labs tomorrow will pursue telemedicine consultation with Dr. Blankenship (plastic surgeon at [facility]) this week. Objective Active Medications: Acetaminophen (Tylenol Tab*) 650 mg PO Q6H PRN PRN Reason: FEVER/PAIN Last Admin: 05/19/17 06:34 Dose: 650 mg Alteplase, Recombinant (Cathflo Activase*) 2 mg IV ONCE PRN PRN Reason: PICC line clog Last Admin: 05/15/17 14:13 Dose: 2 mg Ascorbic Acid (Vitamin C Tab*) 500 mg PO DAILY [facility] Last Admin: 05/19/17 10:04 Dose: 500 mg Aspirin (Aspirin Ec Low Dose*) 81 mg PO DAILY [facility] Last Admin: 05/19/17 10:05 Dose: 81 mg Cholecalciferol (Vitamin D Tab*) 5,000 units PO DAILY [facility] Last Admin: 05/19/17 10:05 Dose: 5,000 units Ciprofloxacin (Cipro Tab*) 750 mg PO Q12HR [facility] Last Admin: 05/19/17 10:04 Dose: 750 mg Cyanocobalamin (Vitamin B12 Tab*) 1,000 mcg PO DAILY [facility] Last Admin: 05/19/17 10:03 Dose: 1,000 mcg Diphenoxylate HCl/Atropine (Lomotil Tab*) 1 tab PO QID PRN PRN Reason: DIARRHEA Last Admin: 05/14/17 20:04 Dose: 1 tab Econazole Nitrate (Econazole 1 % Cream (Nf)) 1 applic TOPICAL DAILY [facility] Last Admin: 05/19/17 10:06 Dose: Not Given Enoxaparin Sodium (Lovenox(*)) 40 mg SUBCUT Q24H [facility] Last Admin: 05/19/17 17:08 Dose: 40 mg Fentanyl (Duragesic Patch 75 Mcg/Hr*) 75 mcg TRANSDERM Q72H [facility] Last Admin: 05/17/17 17:36 Dose: 75 mcg Ferrous Gluconate (Fergon Tab*) 324 mg PO BID [facility] Last Admin: 05/19/17 10:03 Dose: 324 mg Folic Acid (Folvite Tab*) 0.5 mg PO DAILY [facility] Last Admin: 05/19/17 10:04 Dose: 0.5 mg Furosemide (Lasix Tab*) 40 mg PO BID [facility] Last Admin: 05/19/17 10:03 Dose: 40 mg Heparin Sodium (Porcine) (Heparin Flush Picc/Ml/Cvc(*)) 0 ml IV FLUSH 0600, 1800 [facility] PRN Reason: Protocol Last Admin: 05/19/17 17:08 Dose: 1 ml Hydrocortisone (Hytone Cream 1%*) 1 applic TOPICAL TID [facility] Last Admin: 05/19/17 14:19 Dose: Not Given Vancomycin HCl 1,000 mg/ (Sodium Chloride) 250 mls @ 166.667 mls/hr IVPB Q24H [facility] Last Admin: 05/19/17 11:12 Dose: 166.667 mls/hr Lactobacillus Rhamnosus (Culturelle*) 1 cap PO BID [facility] Last Admin: 05/19/17 10:04 Dose: 1 cap Metronidazole (Flagyl Tab*) 500 mg PO BID [facility] Last Admin: 05/19/17 10:04 Dose: 500 mg Nystatin (Nystatin Cream*) 1 applic TOPICAL BID [facility] Last Admin: 05/19/17 10:15 Dose: Not Given Omeprazole (Prilosec Cap*) 40 mg PO DAILY@0730 [facility] Last Admin: 05/19/17 10:03 Dose: 40 mg Oxycodone HCl (Roxycodone Tab*) 10 mg PO AC PRN PRN Reason: PAIN Last Admin: 05/18/17 16:47 Dose: 10 mg Pharmacy Consult (Vancomycin Per Pharmacy*) 1 note FOLLOW UP . PRN PRN Reason: PER PROTOCOL Pharmacy Profile Note (Fentanyl Patch Check Q Shift) 1 note N/A 0700,1900 [facility] Last Admin: 05/19/17 07:02 Dose: 1 note Pharmacy Profile Note (Vancomycin Trough Check) 1 note FOLLOW UP 0930 ONE Stop: 05/20/17 09:31 Pregabalin (Lyrica Cap(*)) 150 mg PO TID [facility] Last Admin: 05/19/17 15:05 Dose: 150 mg Zinc Sulfate (Zinc-220 Cap*) 220 mg PO DAILY [facility] Last Admin: 05/19/17 10:03 Dose: 220 mg Vital Signs 05/18/17 05/18/17 05/18/17 19:11 19:41 20:15 Temperature 98.0 F Pulse Rate 75 Respiratory 18 16 16 Rate Blood Pressure 139/58 (mmHg) O2 Sat by Pulse 95 Oximetry 05/18/17 05/19/17 05/19/17 20:18 08:43 09:02 Temperature Pulse Rate Respiratory 14 16 16 Rate Blood Pressure (mmHg) O2 Sat by Pulse Oximetry 05/19/17 05/19/17 05/19/17 10:05 14:18 15:05 Temperature Pulse Rate Respiratory 18 16 16 Rate Blood Pressure (mmHg) O2 Sat by Pulse Oximetry 05/19/17 17:09 Temperature Pulse Rate Respiratory 16 Rate Blood Pressure (mmHg) O2 Sat by Pulse Oximetry Oxygen Devices in Use Now: None Result Diagrams: 05/20/17 05:50 05/20/17 05:50 Assess/Plan/Problems-Billing Assessment: - Patient Problems (1) S/P plastic surgery Current Visit: Yes Status: Acute Priority: High Code(s): Z98.890 - OTHER SPECIFIED POSTPROCEDURAL STATES Comment: - in clinitron bed until otherwise directed - careful T&P by nursing - flap looks good. (2) S/P flap graft Current Visit: Yes Status: Acute Priority: High Code(s): Z98.890 - OTHER SPECIFIED POSTPROCEDURAL STATES Comment: - 05/02/2017 (3) Acute osteomyelitis of sacrum Current Visit: No Status: Acute Priority: High Code(s): M46.28 - OSTEOMYELITIS OF VERTEBRA, SACRAL AND SACROCOCCYGEAL REGION Comment: - s/p debridement at time of flap creation at [facility]...continue vancomycin and ciprofloxacin - vanco by level & pharmacy protocol (4) CKD (chronic kidney disease), stage III Current Visit: No Status: Chronic Priority: High Code(s): N18.3 - CHRONIC KIDNEY DISEASE, STAGE 3 (MODERATE) Comment: - Creatinine baseline, no acute exacerbation - Avoid nephrotoxic medications (5) Chronic indwelling Fischer catheter Current Visit: No Status: Chronic Priority: High Code(s): Z92.89 - PERSONAL HISTORY OF OTHER MEDICAL TREATMENT Comment: - High risk of UTI - currently on ABX, no current evidence of UTI. (6) Neurogenic bladder Current Visit: No Status: Chronic Priority: High Code(s): N31.9 - NEUROMUSCULAR DYSFUNCTION OF BLADDER, UNSPECIFIED Comment: - With chronic indwelling urinary catheter (7) Paraplegia Current Visit: No Status: Chronic Priority: High Code(s): G82.20 - PARAPLEGIA, UNSPECIFIED Comment: - Secondary to ependymoma - PT / OT as allowed by plastics - will discuss that this week during call with Dr. Blankenship.
[2017-05-20 06:05] LABS: ABS Basophils 0.1 10^3/ul (0-0.2); ABS Eosinophils 0.4 10^3/ul (0-0.6); ABS Lymphocytes 2.5 10^3/ul (1.0-4.8); ABS Monocytes 1.1 10^3/ul (0-0.8); ABS Neutrophils 4.4 10^3/ul (1.5-7.7); ABS Nucleated RBC 0 10^3/ul; Hematocrit 33 % (42-52); Hemoglobin 11.1 g/dl (14.0-18.0); Mean Corpuscular HGB Conc 33 g/dl (31-36); Mean Corpuscular Hemoglobin 28 pg (27-31); Mean Corpuscular Volume 84 fL (80-94); Mean Platelet Volume 8 um3 (7.4-10.4); Nucleated Red Blood Cells % 0; Platelet Count 201 10^3/ul (150-450); Red Blood Count 3.99 10^6/ul (4.0-5.4); Red Cell Distribution Width 17 % (10.5-15); White Blood Count 8.5 10^3/ul (3.5-10.8)
[2017-05-20 06:24] LABS: EGFR Non-African American 52.1 (>60)
[2017-05-20 06:25] LABS: Vancomycin Trough 18.3 mcg/mL
[2017-05-20] MEDS: fentaNYL Patch Check Q Shift 1 NOTE SCH ×2 (06:50→18:54)
[2017-05-20] MEDS: Omeprazole CAP* 20 MG PO SCH (07:50)
[2017-05-20] MEDS ORDERED: Vancomycin Trough Check NOTE FOLLOW UP ONE (09:30)
[2017-05-20] MEDS: Vancomycin(*) 1,000 MG in NS 0.9% 250 ML* 250 ML IVPB SCH (09:31)
[2017-05-20] MEDS: Ferrous Gluconate TAB* 324 MG TAB PO SCH ×2 (09:31→20:17)
[2017-05-20] MEDS: Ciprofloxacin TAB* 750 MG PO SCH ×2 (09:31→20:17)
[2017-05-20] MEDS: Ascorbic Acid TAB* 500 MG PO SCH (09:31)
[2017-05-20] MEDS: Zinc Sulfate CAP* 220 MG PO SCH (09:31)
[2017-05-20] MEDS: Pregabalin CAP(*) 50 MG PO SCH ×3 (09:32→20:17)
[2017-05-20] MEDS: Lactobacillus Acidophilu (GG)* 1 CAP CAP PO SCH ×2 (09:32→20:17)
[2017-05-20] MEDS: metroNIDAZOLE TAB* 250 MG PO SCH ×2 (09:32→20:17)
[2017-05-20] MEDS: Folic Acid TAB* 1 MG PO SCH (09:32)
[2017-05-20] MEDS: Aspirin EC Low Dose* 81 MG TAB.EC PO SCH (09:32)
[2017-05-20] MEDS: Furosemide TAB* 40 MG PO SCH ×2 (09:32→20:17)
[2017-05-20] MEDS: Cholecalciferol TAB* 1000 UNITS PO SCH (09:32)
[2017-05-20] MEDS: Cyanocobalamin TAB* 500 MCG PO SCH (09:32)
[2017-05-20] MEDS: Econazole 1% CREAM (NF) 1 TUBE TOPICAL SCH (10:58)
[2017-05-20] MEDS: Hydrocortisone 1% CREAM* 30 GM TUBE TOPICAL SCH ×3 (10:59→20:18)
[2017-05-20] MEDS: Nystatin CREAM* 15 GM TUBE TOPICAL SCH ×2 (10:59→20:18)
[2017-05-20] MEDS ORDERED: Potassium Chlor TAB* 20 MEQ TAB.ER PO ONE (15:58)
[2017-05-20] MEDS: fentaNYL PATCH 75 MCG/HR* 75 MCG TRANSDERM SCH (17:14)
[2017-05-20] MEDS: Enoxaparin(*) 40 MG/0.4 ML SYR SUBCUT SCH (17:20)
[2017-05-21] MEDS: Acetaminophen TAB* 325 MG PO PRN (00:14)
[2017-05-21] MEDS: fentaNYL Patch Check Q Shift 1 NOTE SCH ×2 (06:53→18:45)
[2017-05-21] MEDS: Pregabalin CAP(*) 50 MG PO SCH ×3 (08:14→20:01)
[2017-05-21] MEDS: Cholecalciferol TAB* 1000 UNITS PO SCH (08:15)
[2017-05-21] MEDS: Ascorbic Acid TAB* 500 MG PO SCH (08:15)
[2017-05-21] MEDS: Ferrous Gluconate TAB* 324 MG TAB PO SCH ×2 (08:16→20:01)
[2017-05-21] MEDS: Furosemide TAB* 40 MG PO SCH ×2 (08:17→20:01)
[2017-05-21] MEDS: Omeprazole CAP* 20 MG PO SCH (08:17)
[2017-05-21] MEDS: Lactobacillus Acidophilu (GG)* 1 CAP CAP PO SCH ×2 (08:17→20:02)
[2017-05-21] MEDS: Aspirin EC Low Dose* 81 MG TAB.EC PO SCH (08:18)
[2017-05-21] MEDS: Zinc Sulfate CAP* 220 MG PO SCH (08:18)
[2017-05-21] MEDS: Cyanocobalamin TAB* 500 MCG PO SCH (08:18)
[2017-05-21] MEDS: Folic Acid TAB* 1 MG PO SCH (08:18)
[2017-05-21] MEDS: metroNIDAZOLE TAB* 250 MG PO SCH ×2 (08:18→20:01)
[2017-05-21] MEDS: Potassium Chlor TAB* 20 MEQ TAB.ER PO SCH (08:19)
[2017-05-21] MEDS: Ciprofloxacin TAB* 750 MG PO SCH ×2 (08:19→20:02)
[2017-05-21] MEDS: Hydrocortisone 1% CREAM* 30 GM TUBE TOPICAL SCH ×3 (08:21→20:02)
[2017-05-21] MEDS: Econazole 1% CREAM (NF) 1 TUBE TOPICAL SCH (08:21)
[2017-05-21] MEDS: Nystatin CREAM* 15 GM TUBE TOPICAL SCH ×2 (08:21→20:02)
[2017-05-21] MEDS: Vancomycin(*) 1,000 MG in NS 0.9% 250 ML* 250 ML IVPB SCH (10:03)
[2017-05-21] MEDS: Alteplase (CATHFLO)* 2 MG VIAL IV PRN (14:56)
[2017-05-21] MEDS: Enoxaparin(*) 40 MG/0.4 ML SYR SUBCUT SCH (16:44)
[2017-05-22] MEDS: fentaNYL Patch Check Q Shift 1 NOTE SCH ×2 (06:37→18:43)
[2017-05-22] MEDS: Omeprazole CAP* 20 MG PO SCH (07:53)
[2017-05-22] MEDS: Zinc Sulfate CAP* 220 MG PO SCH (09:00)
[2017-05-22] MEDS: Ciprofloxacin TAB* 750 MG PO SCH ×2 (09:01→21:33)
[2017-05-22] MEDS: Folic Acid TAB* 1 MG PO SCH (09:01)
[2017-05-22] MEDS: Cholecalciferol TAB* 1000 UNITS PO SCH (09:02)
[2017-05-22] MEDS: oxyCODONE TAB* 5 MG TAB PO PRN ×3 (09:02→17:32)
[2017-05-22] MEDS: Pregabalin CAP(*) 50 MG PO SCH ×3 (09:02→21:33)
[2017-05-22] MEDS: metroNIDAZOLE TAB* 250 MG PO SCH ×2 (09:03→21:34)
[2017-05-22] MEDS: Aspirin EC Low Dose* 81 MG TAB.EC PO SCH (09:03)
[2017-05-22] MEDS: Potassium Chlor TAB* 20 MEQ TAB.ER PO SCH (09:03)
[2017-05-22] MEDS: Ferrous Gluconate TAB* 324 MG TAB PO SCH ×2 (09:03→21:34)
[2017-05-22] MEDS: Lactobacillus Acidophilu (GG)* 1 CAP CAP PO SCH ×2 (09:03→21:34)
[2017-05-22] MEDS: Furosemide TAB* 40 MG PO SCH ×2 (09:03→21:34)
[2017-05-22] MEDS: Ascorbic Acid TAB* 500 MG PO SCH (09:03)
[2017-05-22] MEDS: Cyanocobalamin TAB* 500 MCG PO SCH (09:03)
[2017-05-22] MEDS: Nystatin CREAM* 15 GM TUBE TOPICAL SCH ×2 (09:04→21:37)
[2017-05-22] MEDS: Econazole 1% CREAM (NF) 1 TUBE TOPICAL SCH (09:04)
[2017-05-22] MEDS: Hydrocortisone 1% CREAM* 30 GM TUBE TOPICAL SCH ×3 (09:04→21:37)
[2017-05-22] MEDS: Vancomycin(*) 1,000 MG in NS 0.9% 250 ML* 250 ML IVPB SCH (10:30)
[2017-05-22] MEDS: Enoxaparin(*) 40 MG/0.4 ML SYR SUBCUT SCH (17:33)
--- NOTE | 2017-05-22 18:00 | PN ---
Subjective Date of Service: 05/22/17 Doctor-Patient Communication Method: Telemedicine Interval History: . visit brokered by me between patient and plastic surgeon - Dr. Yassine Blankenship used iPAD with HIPAA compliant Zoom platform to perform face to face encounter with Mr. juárez and his Deedee. Nurses present. General instructions received from Dr. Blankenship about flap , he was shown drains and instructed me to remove "every other suture". Bed restriction instructions given. IV antibiotics were reviewed. general questions were answered from family. total time = 35 minutes with 15 minutes of active face to face on camera. I was in room 45 minutes. . Family History: Unchanged from Admission Social History: Unchanged from Admission Past Medical History: Unchanged from Admission Review of Systems - Measurements Intake and Output: Intake and Output Last 24 Hours 05/20/17 05/21/17 05/22/17 05/23/17 06:59 06:59 06:59 06:59 Intake Total 1716 2090 960 999 Output Total 2431 2505 2773 1208 [facility] [phone] Intake: IV Fluids 566 299 ABX - VANCOMYCIN 566 269 NS 30 Oral 1150 2090 960 700 Output: SANDRA #1 3 0 18 5 SANDRA #2 3 5 5 3 Fischer 2425 2500 2750 1200 Other: Date of Last Bowel 05/21/17 Movement # Bowel Movements 4 1 Estimated Stool Amount Small Small Objective Active Medications: . Acetaminophen (Tylenol Tab*) 650 mg PO Q6H PRN PRN Reason: FEVER/PAIN Last Admin: 05/21/17 00:14 Dose: 650 mg Ascorbic Acid (Vitamin C Tab*) 500 mg PO DAILY [facility] Last Admin: 05/22/17 09:03 Dose: 500 mg Aspirin (Aspirin Ec Low Dose*) 81 mg PO DAILY [facility] Last Admin: 05/22/17 09:03 Dose: 81 mg Cholecalciferol (Vitamin D Tab*) 5,000 units PO DAILY [facility] Last Admin: 05/22/17 09:02 Dose: 5,000 units Ciprofloxacin (Cipro Tab*) 750 mg PO Q12HR [facility] Last Admin: 05/22/17 09:01 Dose: 750 mg Cyanocobalamin (Vitamin B12 Tab*) 1,000 mcg PO DAILY [facility] Last Admin: 05/22/17 09:03 Dose: 1,000 mcg Diphenoxylate HCl/Atropine (Lomotil Tab*) 1 tab PO QID PRN PRN Reason: DIARRHEA Last Admin: 05/14/17 20:04 Dose: 1 tab Econazole Nitrate (Econazole 1 % Cream (Nf)) 1 applic TOPICAL DAILY [facility] Last Admin: 05/22/17 09:04 Dose: Not Given Enoxaparin Sodium (Lovenox(*)) 40 mg SUBCUT Q24H [facility] Last Admin: 05/22/17 17:33 Dose: 40 mg Fentanyl (Duragesic Patch 75 Mcg/Hr*) 75 mcg TRANSDERM Q72H [facility] Last Admin: 05/20/17 17:14 Dose: 75 mcg Ferrous Gluconate (Fergon Tab*) 324 mg PO BID [facility] Last Admin: 05/22/17 09:03 Dose: 324 mg Folic Acid (Folvite Tab*) 0.5 mg PO DAILY [facility] Last Admin: 05/22/17 09:01 Dose: 0.5 mg Furosemide (Lasix Tab*) 40 mg PO BID [facility] Last Admin: 05/22/17 09:03 Dose: 40 mg Heparin Sodium (Porcine) (Heparin Flush Picc/Ml/Cvc(*)) 0 ml IV FLUSH 0600, 1800 [facility] PRN Reason: Protocol Last Admin: 05/22/17 17:33 Dose: 1 ml Hydrocortisone (Hytone Cream 1%*) 1 applic TOPICAL TID [facility] Last Admin: 05/22/17 14:04 Dose: 1 applic Vancomycin HCl 1,000 mg/ (Sodium Chloride) 250 mls @ 166.667 mls/hr IVPB Q24H [facility] Last Admin: 05/22/17 10:30 Dose: 166.667 mls/hr Lactobacillus Rhamnosus (Culturelle*) 1 cap PO BID [facility] Last Admin: 05/22/17 09:03 Dose: 1 cap Metronidazole (Flagyl Tab*) 500 mg PO BID [facility] Last Admin: 05/22/17 09:03 Dose: 500 mg Nystatin (Nystatin Cream*) 1 applic TOPICAL BID [facility] Last Admin: 05/22/17 09:04 Dose: Not Given Omeprazole (Prilosec Cap*) 40 mg PO DAILY@0730 [facility] Last Admin: 05/22/17 07:53 Dose: 40 mg Oxycodone HCl (Roxycodone Tab*) 10 mg PO AC PRN PRN Reason: PAIN Last Admin: 05/22/17 17:32 Dose: 10 mg Pharmacy Consult (Vancomycin Per Pharmacy*) 1 note FOLLOW UP . PRN PRN Reason: PER PROTOCOL Pharmacy Profile Note (Fentanyl Patch Check Q Shift) 1 note N/A 0700,1900 [facility] Last Admin: 05/22/17 06:37 Dose: 1 note Potassium Chloride (Klor Con Er Tab*) 20 meq PO DAILY [facility] Stop: 05/26/17 08:59 Last Admin: 05/22/17 09:03 Dose: 20 meq Pregabalin (Lyrica Cap(*)) 150 mg PO TID [facility] Last Admin: 05/22/17 14:02 Dose: 150 mg Zinc Sulfate (Zinc-220 Cap*) 220 mg PO DAILY [facility] Last Admin: 05/22/17 09:00 Dose: 220 mg . Vital Signs 05/21/17 05/21/17 05/21/17 20:01 20:06 22:01 Temperature 97.9 F Pulse Rate 81 Respiratory 14 16 17 Rate Blood Pressure 154/60 (mmHg) O2 Sat by Pulse 94 Oximetry 05/22/17 05/22/17 05/22/17 07:30 08:12 09:02 Temperature 98.1 F Pulse Rate 71 Respiratory 16 16 18 Rate Blood Pressure 151/64 (mmHg) O2 Sat by Pulse 97 Oximetry Oxygen Devices in Use Now: None Appearance: NAD Eyes: PERRLA Ears/Nose/Mouth/Throat: NL Teeth, Lips, Gums, Clear Oropharnyx Neck: NL Appearance and Movements; NL JVP Respiratory: Symmetrical Chest Expansion and Respiratory Effort Cardiovascular: NL Sounds; No Murmurs; No JVD Abdominal: NL Sounds; No Tenderness; No Distention Skin: - - flap looks good - no fluctuance. SANDRA x 2. sutures all ok. 1/2 were removed by me today during exam. Neurological: Alert and Oriented x 3 Lines/Tubes/Other Access: Clean, Dry and Intact PICC Line, Clean, Dry and Intact Other Access - SANDRA drain x 2 Nutrition: Taking PO's Result Diagrams: 05/20/17 05:50 05/20/17 05:50 Assess/Plan/Problems-Billing . Assessment: 71 yo man with paraplegia s/p plastic surgery for Stage IV sacral wound and acute osteomyelitis as well as chronic pain. - Patient Problems (1) S/P plastic surgery Current Visit: Yes Status: Acute Priority: High Code(s): Z98.890 - OTHER SPECIFIED POSTPROCEDURAL STATES Comment: - In clinitron bed until otherwise directed - can sit up at 4 weeks after surgery, or ~ 05/30/2017 - Careful T&P by nursing - Flap looks good (Dr. Blankenship agrees) - 1/2 of chris removed...every other one. (2) S/P flap graft Current Visit: Yes Status: Acute Priority: High Code(s): Z98.890 - OTHER SPECIFIED POSTPROCEDURAL STATES Comment: - 05/02/2017 (3) Acute osteomyelitis of sacrum Current Visit: No Status: Acute Priority: High Code(s): M46.28 - OSTEOMYELITIS OF [place], SACRAL AND SACROCOCCYGEAL REGION Comment: - s/p debridement at time of flap creation at [place]...continue vancomycin and ciprofloxacin and metronidazole - vanco by level & pharmacy protocol (4) CKD (chronic kidney disease), stage III Current Visit: No Status: Chronic Priority: High Code(s): N18.3 - CHRONIC KIDNEY DISEASE, STAGE 3 (MODERATE) Comment: - Creatinine baseline, no acute exacerbation - Avoid nephrotoxic medications (5) Chronic indwelling Fischer catheter Current Visit: No Status: Chronic Priority: High Code(s): Z92.89 - PERSONAL HISTORY OF OTHER MEDICAL TREATMENT Comment: - High risk of UTI - currently on ABX, no current evidence of UTI. (6) Neurogenic bladder Current Visit: No Status: Chronic Priority: High Code(s): N31.9 - NEUROMUSCULAR DYSFUNCTION OF BLADDER, UNSPECIFIED Comment: - With chronic indwelling urinary catheter (7) Paraplegia Current Visit: No Status: Chronic Priority: High Code(s): G82.20 - PARAPLEGIA, UNSPECIFIED Comment: - Secondary to ependymoma - PT / OT as allowed by plastics
[2017-05-23 06:26] LABS: EGFR Non-African American 50.8 (>60)
[2017-05-23] MEDS: fentaNYL Patch Check Q Shift 1 NOTE SCH ×2 (06:37→18:46)
[2017-05-23] MEDS: Omeprazole CAP* 20 MG PO SCH (07:42)
[2017-05-23] MEDS: Ascorbic Acid TAB* 500 MG PO SCH (09:20)
[2017-05-23] MEDS: Zinc Sulfate CAP* 220 MG PO SCH (09:20)
[2017-05-23] MEDS: Lactobacillus Acidophilu (GG)* 1 CAP CAP PO SCH ×2 (09:20→20:17)
[2017-05-23] MEDS: Cyanocobalamin TAB* 500 MCG PO SCH (09:20)
[2017-05-23] MEDS: Furosemide TAB* 40 MG PO SCH ×2 (09:20→20:18)
[2017-05-23] MEDS: Potassium Chlor TAB* 20 MEQ TAB.ER PO SCH (09:21)
[2017-05-23] MEDS: Cholecalciferol TAB* 1000 UNITS PO SCH (09:21)
[2017-05-23] MEDS: Ferrous Gluconate TAB* 324 MG TAB PO SCH ×2 (09:21→20:18)
[2017-05-23] MEDS: Pregabalin CAP(*) 50 MG PO SCH ×3 (09:21→20:18)
[2017-05-23] MEDS: metroNIDAZOLE TAB* 250 MG PO SCH ×2 (09:21→20:18)
[2017-05-23] MEDS: Aspirin EC Low Dose* 81 MG TAB.EC PO SCH (09:21)
[2017-05-23] MEDS: Nystatin CREAM* 15 GM TUBE TOPICAL SCH ×2 (09:22→20:19)
[2017-05-23] MEDS: Folic Acid TAB* 1 MG PO SCH (09:22)
[2017-05-23] MEDS: Ciprofloxacin TAB* 750 MG PO SCH ×2 (09:22→20:17)
[2017-05-23] MEDS: Hydrocortisone 1% CREAM* 30 GM TUBE TOPICAL SCH ×4 (09:23→20:18)
[2017-05-23] MEDS: Econazole 1% CREAM (NF) 1 TUBE TOPICAL SCH (09:28)
[2017-05-23] MEDS: Vancomycin(*) 1,000 MG in NS 0.9% 250 ML* 250 ML IVPB SCH (11:40)
[2017-05-23] MEDS: fentaNYL PATCH 75 MCG/HR* 75 MCG TRANSDERM SCH (16:54)
[2017-05-23] MEDS: Enoxaparin(*) 40 MG/0.4 ML SYR SUBCUT SCH (16:56)
[2017-05-24] MEDS: fentaNYL Patch Check Q Shift 1 NOTE SCH ×2 (07:01→19:20)
[2017-05-24] MEDS: Omeprazole CAP* 20 MG PO SCH (07:37)
[2017-05-24] MEDS: Zinc Sulfate CAP* 220 MG PO SCH (09:03)
[2017-05-24] MEDS: Aspirin EC Low Dose* 81 MG TAB.EC PO SCH (09:03)
[2017-05-24] MEDS: Folic Acid TAB* 1 MG PO SCH (09:03)
[2017-05-24] MEDS: Ciprofloxacin TAB* 750 MG PO SCH ×2 (09:03→22:41)
[2017-05-24] MEDS: Ascorbic Acid TAB* 500 MG PO SCH (09:04)
[2017-05-24] MEDS: Potassium Chlor TAB* 20 MEQ TAB.ER PO SCH (09:04)
[2017-05-24] MEDS: Cholecalciferol TAB* 1000 UNITS PO SCH (09:06)
[2017-05-24] MEDS: Pregabalin CAP(*) 50 MG PO SCH ×3 (09:07→22:41)
[2017-05-24] MEDS: metroNIDAZOLE TAB* 250 MG PO SCH ×2 (09:09→22:41)
[2017-05-24] MEDS: Lactobacillus Acidophilu (GG)* 1 CAP CAP PO SCH ×2 (09:09→22:41)
[2017-05-24] MEDS: Ferrous Gluconate TAB* 324 MG TAB PO SCH ×2 (09:10→22:42)
[2017-05-24] MEDS: Furosemide TAB* 40 MG PO SCH ×2 (09:10→22:41)
[2017-05-24] MEDS: Cyanocobalamin TAB* 500 MCG PO SCH (09:10)
[2017-05-24] MEDS: Hydrocortisone 1% CREAM* 30 GM TUBE TOPICAL SCH ×3 (09:11→22:42)
[2017-05-24] MEDS: Nystatin CREAM* 15 GM TUBE TOPICAL SCH ×2 (09:16→22:42)
[2017-05-24] MEDS: Vancomycin(*) 1,000 MG in NS 0.9% 250 ML* 250 ML IVPB SCH (11:43)
[2017-05-24] MEDS: Enoxaparin(*) 40 MG/0.4 ML SYR SUBCUT SCH (17:24)
[2017-05-25] MEDS: fentaNYL Patch Check Q Shift 1 NOTE SCH ×2 (07:26→19:03)
[2017-05-25] MEDS: Omeprazole CAP* 20 MG PO SCH (08:11)
[2017-05-25] MEDS: Cholecalciferol TAB* 1000 UNITS PO SCH (09:35)
[2017-05-25] MEDS: Ascorbic Acid TAB* 500 MG PO SCH (09:35)
[2017-05-25] MEDS: Ferrous Gluconate TAB* 324 MG TAB PO SCH ×2 (09:35→20:54)
[2017-05-25] MEDS: Aspirin EC Low Dose* 81 MG TAB.EC PO SCH (09:35)
[2017-05-25] MEDS: Cyanocobalamin TAB* 500 MCG PO SCH (09:36)
[2017-05-25] MEDS: Zinc Sulfate CAP* 220 MG PO SCH (09:36)
[2017-05-25] MEDS: Pregabalin CAP(*) 50 MG PO SCH ×3 (09:36→20:54)
[2017-05-25] MEDS: Lactobacillus Acidophilu (GG)* 1 CAP CAP PO SCH ×2 (09:36→20:55)
[2017-05-25] MEDS: Ciprofloxacin TAB* 750 MG PO SCH ×2 (09:36→20:54)
[2017-05-25] MEDS: Potassium Chlor TAB* 20 MEQ TAB.ER PO SCH (09:36)
[2017-05-25] MEDS: Folic Acid TAB* 1 MG PO SCH (09:36)
[2017-05-25] MEDS: Furosemide TAB* 40 MG PO SCH ×2 (09:36→20:55)
[2017-05-25] MEDS: metroNIDAZOLE TAB* 250 MG PO SCH ×2 (09:36→20:55)
[2017-05-25] MEDS: Hydrocortisone 1% CREAM* 30 GM TUBE TOPICAL SCH ×3 (09:43→20:55)
[2017-05-25] MEDS: Nystatin CREAM* 15 GM TUBE TOPICAL SCH ×2 (09:43→20:55)
[2017-05-25] MEDS: Vancomycin(*) 1,000 MG in NS 0.9% 250 ML* 250 ML IVPB SCH (10:30)
[2017-05-25] MEDS: Enoxaparin(*) 40 MG/0.4 ML SYR SUBCUT SCH (17:59)
[2017-05-26 05:28] LABS: EGFR Non-African American 60.9 (>60)
[2017-05-26] MEDS: fentaNYL Patch Check Q Shift 1 NOTE SCH ×2 (07:07→19:30)
[2017-05-26] MEDS: Omeprazole CAP* 20 MG PO SCH (07:54)
[2017-05-26] MEDS: oxyCODONE TAB* 5 MG TAB PO PRN ×3 (07:54→17:01)
[2017-05-26] MEDS: Nystatin CREAM* 15 GM TUBE TOPICAL SCH ×2 (07:55→20:09)
[2017-05-26] MEDS: Hydrocortisone 1% CREAM* 30 GM TUBE TOPICAL SCH ×3 (07:55→20:08)
[2017-05-26] MEDS: Furosemide TAB* 40 MG PO SCH ×2 (08:57→20:08)
[2017-05-26] MEDS: metroNIDAZOLE TAB* 250 MG PO SCH ×2 (08:57→20:08)
[2017-05-26] MEDS: Cholecalciferol TAB* 1000 UNITS PO SCH (08:57)
[2017-05-26] MEDS: Zinc Sulfate CAP* 220 MG PO SCH (08:57)
[2017-05-26] MEDS: Ferrous Gluconate TAB* 324 MG TAB PO SCH ×2 (08:57→20:08)
[2017-05-26] MEDS: Aspirin EC Low Dose* 81 MG TAB.EC PO SCH (08:58)
[2017-05-26] MEDS: Ascorbic Acid TAB* 500 MG PO SCH (08:58)
[2017-05-26] MEDS: Ciprofloxacin TAB* 750 MG PO SCH ×2 (08:58→20:08)
[2017-05-26] MEDS: Lactobacillus Acidophilu (GG)* 1 CAP CAP PO SCH ×2 (08:58→20:08)
[2017-05-26] MEDS: Folic Acid TAB* 1 MG PO SCH (08:58)
[2017-05-26] MEDS: Cyanocobalamin TAB* 500 MCG PO SCH (08:58)
[2017-05-26] MEDS ORDERED: Pregabalin CAP(*) 50 MG ONE (09:02)
[2017-05-26] MEDS ORDERED: Pregabalin CAP(*) 100 MG ONE (09:02)
[2017-05-26] MEDS: Pregabalin CAP(*) 50 MG PO SCH ×3 (09:11→20:08)
[2017-05-26] MEDS ORDERED: Vancomycin Trough Check NOTE FOLLOW UP ONE (09:30)
[2017-05-26] MEDS: Vancomycin(*) 1,000 MG in NS 0.9% 250 ML* 250 ML IVPB SCH (10:31)
[2017-05-26] MEDS: Enoxaparin(*) 40 MG/0.4 ML SYR SUBCUT SCH (17:01)
[2017-05-26] MEDS: fentaNYL PATCH 75 MCG/HR* 75 MCG TRANSDERM SCH (17:02)
[2017-05-27 06:30] LABS: ABS Basophils 0.1 10^3/ul (0-0.2); ABS Eosinophils 0.3 10^3/ul (0-0.6); ABS Lymphocytes 1.9 10^3/ul (1.0-4.8); ABS Monocytes 1.4 10^3/ul (0-0.8); ABS Neutrophils 6.7 10^3/ul (1.5-7.7); ABS Nucleated RBC 0 10^3/ul; Eosinophil % 3.1 % (0-6); Hematocrit 37 % (42-52); Hemoglobin 12.3 g/dl (14.0-18.0); Lymphocyte % 18.4 % (25-47); Mean Corpuscular HGB Conc 34 g/dl (31-36); Mean Corpuscular Hemoglobin 28 pg (27-31); Mean Corpuscular Volume 82 fL (80-94); Mean Platelet Volume 8 um3 (7.4-10.4); Nucleated Red Blood Cells % 0; Platelet Count 232 10^3/ul (150-450); Red Blood Count 4.44 10^6/ul (4.0-5.4); Red Cell Distribution Width 17 % (10.5-15); White Blood Count 10.5 10^3/ul (3.5-10.8)
[2017-05-27 06:46] LABS: EGFR Non-African American 62.1 (>60)
[2017-05-27] MEDS: fentaNYL Patch Check Q Shift 1 NOTE SCH ×2 (07:07→18:27)
[2017-05-27] MEDS: Omeprazole CAP* 20 MG PO SCH (08:09)
[2017-05-27] MEDS: Cholecalciferol TAB* 1000 UNITS PO SCH (09:30)
[2017-05-27] MEDS: Zinc Sulfate CAP* 220 MG PO SCH (09:30)
[2017-05-27] MEDS: Folic Acid TAB* 1 MG PO SCH (09:30)
[2017-05-27] MEDS: metroNIDAZOLE TAB* 250 MG PO SCH ×2 (09:30→20:00)
[2017-05-27] MEDS: Cyanocobalamin TAB* 500 MCG PO SCH (09:31)
[2017-05-27] MEDS: Ciprofloxacin TAB* 750 MG PO SCH ×2 (09:31→20:00)
[2017-05-27] MEDS: Lactobacillus Acidophilu (GG)* 1 CAP CAP PO SCH ×2 (09:31→19:59)
[2017-05-27] MEDS: Pregabalin CAP(*) 50 MG PO SCH ×3 (09:31→20:00)
[2017-05-27] MEDS: Ascorbic Acid TAB* 500 MG PO SCH (09:31)
[2017-05-27] MEDS: Aspirin EC Low Dose* 81 MG TAB.EC PO SCH (09:31)
[2017-05-27] MEDS: Ferrous Gluconate TAB* 324 MG TAB PO SCH ×2 (09:31→20:00)
[2017-05-27] MEDS: Hydrocortisone 1% CREAM* 30 GM TUBE TOPICAL SCH ×3 (09:32→20:08)
[2017-05-27] MEDS: Furosemide TAB* 40 MG PO SCH ×2 (09:32→20:00)
[2017-05-27] MEDS: Nystatin CREAM* 15 GM TUBE TOPICAL SCH ×2 (09:33→20:09)
[2017-05-27] MEDS: Vancomycin(*) 1,000 MG in NS 0.9% 250 ML* 250 ML IVPB SCH (10:09)
[2017-05-27] MEDS: Enoxaparin(*) 40 MG/0.4 ML SYR SUBCUT SCH (17:02)
[2017-05-27] MEDS ORDERED: fentaNYL PATCH 75 MCG/HR* 75 MCG TRANSDERM SCH (18:00)
[2017-05-27] MEDS: Acetaminophen TAB* 325 MG PO PRN (20:06)
[2017-05-28] MEDS: fentaNYL Patch Check Q Shift 1 NOTE SCH ×2 (06:59→19:22)
[2017-05-28] MEDS: Omeprazole CAP* 20 MG PO SCH (07:16)
[2017-05-28] MEDS: Aspirin EC Low Dose* 81 MG TAB.EC PO SCH (08:55)
[2017-05-28] MEDS: Hydrocortisone 1% CREAM* 30 GM TUBE TOPICAL SCH ×3 (08:55→21:15)
[2017-05-28] MEDS: Ciprofloxacin TAB* 750 MG PO SCH ×2 (08:55→21:13)
[2017-05-28] MEDS: Ascorbic Acid TAB* 500 MG PO SCH (08:55)
[2017-05-28] MEDS: Nystatin CREAM* 15 GM TUBE TOPICAL SCH ×2 (08:55→21:22)
[2017-05-28] MEDS: Lactobacillus Acidophilu (GG)* 1 CAP CAP PO SCH ×2 (08:56→21:13)
[2017-05-28] MEDS: metroNIDAZOLE TAB* 250 MG PO SCH ×2 (08:56→21:13)
[2017-05-28] MEDS: Cholecalciferol TAB* 1000 UNITS PO SCH (08:56)
[2017-05-28] MEDS: Furosemide TAB* 40 MG PO SCH ×2 (08:56→21:13)
[2017-05-28] MEDS: Cyanocobalamin TAB* 500 MCG PO SCH (08:56)
[2017-05-28] MEDS: Pregabalin CAP(*) 50 MG PO SCH ×3 (08:56→21:12)
[2017-05-28] MEDS: Zinc Sulfate CAP* 220 MG PO SCH (08:56)
[2017-05-28] MEDS: Ferrous Gluconate TAB* 324 MG TAB PO SCH ×2 (08:56→21:13)
[2017-05-28] MEDS: Folic Acid TAB* 1 MG PO SCH (08:57)
[2017-05-28] MEDS: Vancomycin(*) 1,000 MG in NS 0.9% 250 ML* 250 ML IVPB SCH (09:52)
[2017-05-28] MEDS: Acetaminophen TAB* 325 MG PO PRN (17:45)
[2017-05-28] MEDS: Enoxaparin(*) 40 MG/0.4 ML SYR SUBCUT SCH (17:47)
[2017-05-29] MEDS: oxyCODONE TAB* 5 MG TAB PO PRN (04:04)
[2017-05-29] MEDS: fentaNYL Patch Check Q Shift 1 NOTE SCH ×2 (06:59→19:00)
[2017-05-29] MEDS: Cyanocobalamin TAB* 500 MCG PO SCH (09:12)
[2017-05-29] MEDS: Ciprofloxacin TAB* 750 MG PO SCH ×2 (09:12→19:58)
[2017-05-29] MEDS: Folic Acid TAB* 1 MG PO SCH (09:12)
[2017-05-29] MEDS: Ascorbic Acid TAB* 500 MG PO SCH (09:12)
[2017-05-29] MEDS: Ferrous Gluconate TAB* 324 MG TAB PO SCH ×2 (09:13→19:57)
[2017-05-29] MEDS: Cholecalciferol TAB* 1000 UNITS PO SCH (09:13)
[2017-05-29] MEDS: Lactobacillus Acidophilu (GG)* 1 CAP CAP PO SCH ×2 (09:13→19:59)
[2017-05-29] MEDS: Aspirin EC Low Dose* 81 MG TAB.EC PO SCH (09:13)
[2017-05-29] MEDS: Furosemide TAB* 40 MG PO SCH ×2 (09:13→19:58)
[2017-05-29] MEDS: metroNIDAZOLE TAB* 250 MG PO SCH ×2 (09:13→19:59)
[2017-05-29] MEDS: Omeprazole CAP* 20 MG PO SCH (09:13)
[2017-05-29] MEDS: Pregabalin CAP(*) 50 MG PO SCH ×3 (09:13→19:58)
[2017-05-29] MEDS: Zinc Sulfate CAP* 220 MG PO SCH (09:13)
[2017-05-29] MEDS: Nystatin CREAM* 15 GM TUBE TOPICAL SCH ×2 (09:21→19:59)
[2017-05-29] MEDS: Hydrocortisone 1% CREAM* 30 GM TUBE TOPICAL SCH ×3 (09:21→19:59)
[2017-05-29] MEDS: Vancomycin(*) 1,000 MG in NS 0.9% 250 ML* 250 ML IVPB SCH (10:08)
--- NOTE | 2017-05-29 15:42 | PN ---
Subjective Date of Service: 05/29/17 Interval History: Telemedicine conference today at noon with Dr. Blankenship (plastics) and Kavon Merino coordinated by Dr Pacheco who was present, also present was myself, Tomasa Wheat [employer], Deedee Merino () and Rosalinda, nurse. Dr Blankenship felt that the surgical site continues to heal well. He recommended removing the remainder of the chris today as well as the drain which was done by Tomasa Wheat. He also felt the patient could sit up 90 degress TID (with meals) for 30 mins, trying to avoid shear forces on the site. Will plan for another teleconference in 2 weeks and potentially patient will be able to get out of bed at that time. Family History: Unchanged from Admission Social History: Unchanged from Admission Past Medical History: Unchanged from Admission Objective Active Medications: Acetaminophen (Tylenol Tab*) 650 mg PO Q6H PRN PRN Reason: FEVER/PAIN Last Admin: 05/28/17 17:45 Dose: 650 mg Ascorbic Acid (Vitamin C Tab*) 500 mg PO DAILY [facility] Last Admin: 05/29/17 09:12 Dose: 500 mg Aspirin (Aspirin Ec Low Dose*) 81 mg PO DAILY [facility] Last Admin: 05/29/17 09:13 Dose: 81 mg Cholecalciferol (Vitamin D Tab*) 5,000 units PO DAILY [facility] Last Admin: 05/29/17 09:13 Dose: 5,000 units Ciprofloxacin (Cipro Tab*) 750 mg PO Q12HR [facility] Last Admin: 05/29/17 09:12 Dose: 750 mg Cyanocobalamin (Vitamin B12 Tab*) 1,000 mcg PO DAILY [facility] Last Admin: 05/29/17 09:12 Dose: 1,000 mcg Diphenoxylate HCl/Atropine (Lomotil Tab*) 1 tab PO QID PRN PRN Reason: DIARRHEA Last Admin: 05/14/17 20:04 Dose: 1 tab Enoxaparin Sodium (Lovenox(*)) 40 mg SUBCUT Q24H [facility] Last Admin: 05/28/17 17:47 Dose: 40 mg Fentanyl (Duragesic Patch 75 Mcg/Hr*) 75 mcg TRANSDERM Q72H [facility] Stop: 06/03/17 15:59 Last Admin: 05/26/17 17:02 Dose: 75 mcg Ferrous Gluconate (Fergon Tab*) 324 mg PO BID [facility] Last Admin: 05/29/17 09:13 Dose: 324 mg Folic Acid (Folvite Tab*) 0.5 mg PO DAILY [facility] Last Admin: 05/29/17 09:12 Dose: 0.5 mg Furosemide (Lasix Tab*) 40 mg PO BID [facility] Last Admin: 05/29/17 09:13 Dose: 40 mg Heparin Sodium (Porcine) (Heparin Flush Picc/Ml/Cvc(*)) 0 ml IV FLUSH 0600, 1800 [facility] PRN Reason: Protocol Last Admin: 05/29/17 12:12 Dose: 1 ml Hydrocortisone (Hytone Cream 1%*) 1 applic TOPICAL TID [facility] Last Admin: 05/29/17 15:16 Dose: Not Given Vancomycin HCl 1,000 mg/ (Sodium Chloride) 250 mls @ 166.667 mls/hr IVPB Q24H [facility] Last Admin: 05/29/17 10:08 Dose: 166.667 mls/hr Lactobacillus Rhamnosus (Culturelle*) 1 cap PO BID [facility] Last Admin: 05/29/17 09:13 Dose: 1 cap Metronidazole (Flagyl Tab*) 500 mg PO BID [facility] Last Admin: 05/29/17 09:13 Dose: 500 mg Nystatin (Nystatin Cream*) 1 applic TOPICAL BID [facility] Last Admin: 05/29/17 09:21 Dose: Not Given Omeprazole (Prilosec Cap*) 40 mg PO DAILY@0730 [facility] Last Admin: 05/29/17 09:13 Dose: 40 mg Oxycodone HCl (Roxycodone Tab*) 10 mg PO Q8H PRN PRN Reason: PAIN Last Admin: 05/29/17 04:04 Dose: 10 mg Pharmacy Consult (Vancomycin Per Pharmacy*) 1 note FOLLOW UP . PRN PRN Reason: PER PROTOCOL Pharmacy Profile Note (Fentanyl Patch Check Q Shift) 1 note N/A 0700,1900 [facility] Last Admin: 05/29/17 06:59 Dose: 1 note Pregabalin (Lyrica Cap(*)) 150 mg PO TID [facility] Last Admin: 05/29/17 09:13 Dose: 150 mg Zinc Sulfate (Zinc-220 Cap*) 220 mg PO DAILY [facility] Last Admin: 05/29/17 09:13 Dose: 220 mg Vital Signs 05/28/17 05/28/17 05/28/17 17:38 21:12 21:15 Temperature Pulse Rate Respiratory 16 16 16 Rate Blood Pressure (mmHg) O2 Sat by Pulse Oximetry 05/28/17 05/29/17 05/29/17 23:23 04:04 06:08 Temperature Pulse Rate Respiratory 16 16 16 Rate Blood Pressure (mmHg) O2 Sat by Pulse Oximetry 05/29/17 05/29/17 05/29/17 07:45 08:30 09:13 Temperature 98.6 F Pulse Rate 84 Respiratory 18 16 16 Rate Blood Pressure 133/57 (mmHg) O2 Sat by Pulse 97 Oximetry Oxygen Devices in Use Now: None Appearance: Elderly, M, laying in bed in NAD Skin: - - Well healing surgical wound over the sacral area, chris and drains removed Neurological: Alert and Oriented x 3 Result Diagrams: 05/27/17 06:23 05/27/17 06:23 Assess/Plan/Problems-Billing . Assessment: 71 yo man with paraplegia s/p plastic surgery for Stage IV sacral wound and acute osteomyelitis as well as chronic pain. - Patient Problems (1) S/P plastic surgery Current Visit: Yes Comment: - In clinitron bed until otherwise directed - can sit up 3x/day with meals for 30 mins, plan for potentially OOB in 2 weeks (06/12) after next teleconference - Careful T&P by nursing - Flap looks good (Dr. Blankenship agrees) - Remainder of chris removed as well as drains on 05/29 (2) S/P flap graft Current Visit: Yes Comment: - 05/02/2017 (3) Acute osteomyelitis of sacrum Current Visit: No Comment: - s/p debridement at time of flap creation at [facility]...continue vancomycin and ciprofloxacin and metronidazole - Plan was for 6 weeks total of above regimen (should complete 06/13) - vanco by level & pharmacy protocol (4) CKD (chronic kidney disease), stage III Current Visit: No Comment: - Creatinine baseline, no acute exacerbation - Avoid nephrotoxic medications (5) Chronic indwelling Fischer catheter Current Visit: No Comment: - High risk of UTI - currently on ABX, no current evidence of UTI. (6) Neurogenic bladder Current Visit: No Comment: - With chronic indwelling urinary catheter (7) Paraplegia Current Visit: No Comment: - Secondary to ependymoma - PT / OT as allowed by plastics (8) DVT prophylaxis Current Visit: No Comment: Matildex, SCDs
[2017-05-29] MEDS: fentaNYL PATCH 75 MCG/HR* 75 MCG TRANSDERM SCH (18:20)
[2017-05-29] MEDS: Enoxaparin(*) 40 MG/0.4 ML SYR SUBCUT SCH (18:24)
[2017-05-30] MEDS: fentaNYL Patch Check Q Shift 1 NOTE SCH ×3 (06:50→18:30)
[2017-05-30] MEDS: Nystatin CREAM* 15 GM TUBE TOPICAL SCH ×2 (07:17→20:30)
[2017-05-30] MEDS: Hydrocortisone 1% CREAM* 30 GM TUBE TOPICAL SCH ×4 (07:17→20:30)
[2017-05-30] MEDS ORDERED: Pregabalin CAP(*) 50 MG ONE (08:28)
[2017-05-30] MEDS ORDERED: Pregabalin CAP(*) 100 MG ONE (08:28)
[2017-05-30] MEDS: Lactobacillus Acidophilu (GG)* 1 CAP CAP PO SCH ×2 (08:29→20:04)
[2017-05-30] MEDS: Cholecalciferol TAB* 1000 UNITS PO SCH (08:29)
[2017-05-30] MEDS: Cyanocobalamin TAB* 500 MCG PO SCH (08:30)
[2017-05-30] MEDS: metroNIDAZOLE TAB* 250 MG PO SCH ×2 (08:30→20:04)
[2017-05-30] MEDS: Folic Acid TAB* 1 MG PO SCH (08:30)
[2017-05-30] MEDS: Ascorbic Acid TAB* 500 MG PO SCH (08:30)
[2017-05-30] MEDS: Omeprazole CAP* 20 MG PO SCH (08:30)
[2017-05-30] MEDS: Pregabalin CAP(*) 50 MG PO SCH ×3 (08:30→20:04)
[2017-05-30] MEDS: Ferrous Gluconate TAB* 324 MG TAB PO SCH ×2 (08:30→20:04)
[2017-05-30] MEDS: Furosemide TAB* 40 MG PO SCH ×2 (08:30→20:04)
[2017-05-30] MEDS: Aspirin EC Low Dose* 81 MG TAB.EC PO SCH (08:30)
[2017-05-30] MEDS: Zinc Sulfate CAP* 220 MG PO SCH (08:32)
[2017-05-30] MEDS: Ciprofloxacin TAB* 750 MG PO SCH ×2 (08:32→20:04)
[2017-05-30] MEDS: Vancomycin(*) 1,000 MG in NS 0.9% 250 ML* 250 ML IVPB SCH (10:41)
[2017-05-30] MEDS: oxyCODONE TAB* 5 MG TAB PO PRN (14:15)
[2017-05-30] MEDS: Enoxaparin(*) 40 MG/0.4 ML SYR SUBCUT SCH (16:29)
[2017-05-31] MEDS: fentaNYL Patch Check Q Shift 1 NOTE SCH ×2 (07:01→18:46)
[2017-05-31] MEDS: Aspirin EC Low Dose* 81 MG TAB.EC PO SCH (09:21)
[2017-05-31] MEDS: metroNIDAZOLE TAB* 250 MG PO SCH ×2 (09:21→20:10)
[2017-05-31] MEDS: Furosemide TAB* 40 MG PO SCH ×2 (09:21→20:09)
[2017-05-31] MEDS: Cyanocobalamin TAB* 500 MCG PO SCH (09:21)
[2017-05-31] MEDS: Folic Acid TAB* 1 MG PO SCH (09:21)
[2017-05-31] MEDS: Lactobacillus Acidophilu (GG)* 1 CAP CAP PO SCH ×2 (09:22→20:09)
[2017-05-31] MEDS: Omeprazole CAP* 20 MG PO SCH (09:22)
[2017-05-31] MEDS: Cholecalciferol TAB* 1000 UNITS PO SCH (09:22)
[2017-05-31] MEDS: Ferrous Gluconate TAB* 324 MG TAB PO SCH ×2 (09:23→20:10)
[2017-05-31] MEDS: Pregabalin CAP(*) 50 MG PO SCH ×3 (09:23→20:10)
[2017-05-31] MEDS: Ciprofloxacin TAB* 750 MG PO SCH ×2 (09:34→20:09)
[2017-05-31] MEDS: Zinc Sulfate CAP* 220 MG PO SCH (09:34)
[2017-05-31] MEDS: Ascorbic Acid TAB* 500 MG PO SCH (09:35)
[2017-05-31] MEDS: Vancomycin(*) 1,000 MG in NS 0.9% 250 ML* 250 ML IVPB SCH (10:14)
[2017-05-31] MEDS: Nystatin CREAM* 15 GM TUBE TOPICAL SCH ×2 (10:20→19:56)
[2017-05-31] MEDS: Hydrocortisone 1% CREAM* 30 GM TUBE TOPICAL SCH ×3 (10:32→19:56)
[2017-05-31] MEDS: Enoxaparin(*) 40 MG/0.4 ML SYR SUBCUT SCH (17:04)
[2017-06-01 06:34] LABS: EGFR Non-African American 62.7 (>60)
[2017-06-01] MEDS: fentaNYL Patch Check Q Shift 1 NOTE SCH ×2 (07:00→18:58)
[2017-06-01] MEDS: Aspirin EC Low Dose* 81 MG TAB.EC PO SCH (08:33)
[2017-06-01] MEDS: Folic Acid TAB* 1 MG PO SCH (08:35)
[2017-06-01] MEDS: Ferrous Gluconate TAB* 324 MG TAB PO SCH ×2 (08:36→21:45)
[2017-06-01] MEDS: Ascorbic Acid TAB* 500 MG PO SCH (08:36)
[2017-06-01] MEDS: metroNIDAZOLE TAB* 250 MG PO SCH ×2 (08:36→21:45)
[2017-06-01] MEDS: Cyanocobalamin TAB* 500 MCG PO SCH (08:36)
[2017-06-01] MEDS: oxyCODONE TAB* 5 MG TAB PO PRN (08:36)
[2017-06-01] MEDS: Lactobacillus Acidophilu (GG)* 1 CAP CAP PO SCH ×2 (08:36→21:45)
[2017-06-01] MEDS: Furosemide TAB* 40 MG PO SCH ×2 (08:36→21:45)
[2017-06-01] MEDS: Ciprofloxacin TAB* 750 MG PO SCH ×2 (08:36→21:45)
[2017-06-01] MEDS: Omeprazole CAP* 20 MG PO SCH (08:36)
[2017-06-01] MEDS: Cholecalciferol TAB* 1000 UNITS PO SCH (08:36)
[2017-06-01] MEDS: Zinc Sulfate CAP* 220 MG PO SCH (08:36)
[2017-06-01] MEDS: Pregabalin CAP(*) 50 MG PO SCH ×3 (08:37→21:45)
[2017-06-01] MEDS ORDERED: Vancomycin Trough Check NOTE FOLLOW UP ONE (09:30)
[2017-06-01] MEDS: Hydrocortisone 1% CREAM* 30 GM TUBE TOPICAL SCH ×3 (10:25→21:47)
[2017-06-01] MEDS: Nystatin CREAM* 15 GM TUBE TOPICAL SCH ×2 (10:25→22:15)
[2017-06-01] MEDS: Vancomycin(*) 1,000 MG in NS 0.9% 250 ML* 250 ML IVPB SCH (10:30)
[2017-06-01] MEDS: fentaNYL PATCH 75 MCG/HR* 75 MCG TRANSDERM SCH (17:18)
[2017-06-01] MEDS: Enoxaparin(*) 40 MG/0.4 ML SYR SUBCUT SCH (17:19)
--- NOTE | 2017-06-01 18:21 | PN ---
Progress Note - Progress Note Date of Service: 06/01/17 Note: Asked to see pt today as a staple was noted still in place. Additionally there were questions about the patient's turning and positioning schedule. The last staple removed by myself today without issue. The wound appears to be healing well. There is one area medially that has not healed as well as the other areas but no signs of infection. The patient's states while the patient was in [place] he was inspected for a BM q3-4hr and turned at that time. Additionally overnight the patient is hoping to be left to sleep if he is already asleep. Will change to T&P order to the above request from the patient and his .
[2017-06-02] MEDS: fentaNYL Patch Check Q Shift 1 NOTE SCH ×3 (06:45→18:53)
[2017-06-02] MEDS: Ciprofloxacin TAB* 750 MG PO SCH ×2 (09:04→20:44)
[2017-06-02] MEDS: Lactobacillus Acidophilu (GG)* 1 CAP CAP PO SCH ×2 (09:05→20:44)
[2017-06-02] MEDS: Zinc Sulfate CAP* 220 MG PO SCH (09:05)
[2017-06-02] MEDS: Folic Acid TAB* 1 MG PO SCH (09:05)
[2017-06-02] MEDS: Cyanocobalamin TAB* 500 MCG PO SCH (09:05)
[2017-06-02] MEDS: Ascorbic Acid TAB* 500 MG PO SCH (09:05)
[2017-06-02] MEDS: Ferrous Gluconate TAB* 324 MG TAB PO SCH ×2 (09:06→20:44)
[2017-06-02] MEDS: Omeprazole CAP* 20 MG PO SCH (09:06)
[2017-06-02] MEDS: Cholecalciferol TAB* 1000 UNITS PO SCH (09:06)
[2017-06-02] MEDS: metroNIDAZOLE TAB* 250 MG PO SCH ×2 (09:07→20:44)
[2017-06-02] MEDS: Pregabalin CAP(*) 50 MG PO SCH ×3 (09:07→20:45)
[2017-06-02] MEDS: Furosemide TAB* 40 MG PO SCH ×2 (09:07→20:45)
[2017-06-02] MEDS: Aspirin EC Low Dose* 81 MG TAB.EC PO SCH (09:07)
[2017-06-02] MEDS: Vancomycin(*) 1,000 MG in NS 0.9% 250 ML* 250 ML IVPB SCH (09:08)
[2017-06-02] MEDS: Hydrocortisone 1% CREAM* 30 GM TUBE TOPICAL SCH ×3 (09:10→20:48)
[2017-06-02] MEDS: Nystatin CREAM* 15 GM TUBE TOPICAL SCH ×3 (09:11→20:49)
[2017-06-02] MEDS: oxyCODONE TAB* 5 MG TAB PO PRN (16:46)
[2017-06-02] MEDS: Enoxaparin(*) 40 MG/0.4 ML SYR SUBCUT SCH (16:48)
[2017-06-03] MEDS: fentaNYL Patch Check Q Shift 1 NOTE SCH ×2 (06:39→18:39)
[2017-06-03] MEDS: Omeprazole CAP* 20 MG PO SCH (08:14)
[2017-06-03] MEDS: Furosemide TAB* 40 MG PO SCH ×2 (09:38→21:06)
[2017-06-03] MEDS: Ascorbic Acid TAB* 500 MG PO SCH (09:38)
[2017-06-03] MEDS: Folic Acid TAB* 1 MG PO SCH (09:38)
[2017-06-03] MEDS: Cholecalciferol TAB* 1000 UNITS PO SCH (09:38)
[2017-06-03] MEDS: Nystatin CREAM* 15 GM TUBE TOPICAL SCH ×2 (09:38→22:05)
[2017-06-03] MEDS: Zinc Sulfate CAP* 220 MG PO SCH (09:38)
[2017-06-03] MEDS: Hydrocortisone 1% CREAM* 30 GM TUBE TOPICAL SCH ×3 (09:38→22:05)
[2017-06-03] MEDS: Pregabalin CAP(*) 50 MG PO SCH ×3 (09:39→21:06)
[2017-06-03] MEDS: Lactobacillus Acidophilu (GG)* 1 CAP CAP PO SCH ×2 (09:39→21:06)
[2017-06-03] MEDS: metroNIDAZOLE TAB* 250 MG PO SCH ×2 (09:39→21:06)
[2017-06-03] MEDS: Ciprofloxacin TAB* 750 MG PO SCH ×2 (09:39→21:06)
[2017-06-03] MEDS: Aspirin EC Low Dose* 81 MG TAB.EC PO SCH (09:39)
[2017-06-03] MEDS: Ferrous Gluconate TAB* 324 MG TAB PO SCH ×2 (09:39→21:06)
[2017-06-03] MEDS: Cyanocobalamin TAB* 500 MCG PO SCH (09:40)
[2017-06-03] MEDS: Vancomycin(*) 1,000 MG in NS 0.9% 250 ML* 250 ML IVPB SCH (09:54)
[2017-06-03] MEDS: Enoxaparin(*) 40 MG/0.4 ML SYR SUBCUT SCH (17:43)
[2017-06-04 06:04] LABS: ABS Basophils 0.1 10^3/ul (0-0.2); ABS Eosinophils 0.3 10^3/ul (0-0.6); ABS Lymphocytes 2.2 10^3/ul (1.0-4.8); ABS Monocytes 1.1 10^3/ul (0-0.8); ABS Neutrophils 3.8 10^3/ul (1.5-7.7); ABS Nucleated RBC 0 10^3/ul; Hematocrit 36 % (42-52); Hemoglobin 12.3 g/dl (14.0-18.0); Lymphocyte % 29.5 % (25-47); Mean Corpuscular HGB Conc 34 g/dl (31-36); Mean Corpuscular Hemoglobin 28 pg (27-31); Mean Corpuscular Volume 82 fL (80-94); Mean Platelet Volume 8 um3 (7.4-10.4); Nucleated Red Blood Cells % 0; Platelet Count 246 10^3/ul (150-450); Red Blood Count 4.41 10^6/ul (4.0-5.4); Red Cell Distribution Width 17 % (10.5-15); White Blood Count 7.4 10^3/ul (3.5-10.8)
[2017-06-04 06:21] LABS: EGFR Non-African American 64.6 (>60)
[2017-06-04] MEDS: fentaNYL Patch Check Q Shift 1 NOTE SCH ×2 (06:56→18:40)
[2017-06-04] MEDS: Hydrocortisone 1% CREAM* 30 GM TUBE TOPICAL SCH ×3 (07:27→21:12)
[2017-06-04] MEDS: Cholecalciferol TAB* 1000 UNITS PO SCH (09:08)
[2017-06-04] MEDS: Zinc Sulfate CAP* 220 MG PO SCH (09:08)
[2017-06-04] MEDS: Ascorbic Acid TAB* 500 MG PO SCH (09:08)
[2017-06-04] MEDS: Ciprofloxacin TAB* 750 MG PO SCH ×2 (09:08→21:06)
[2017-06-04] MEDS: Pregabalin CAP(*) 50 MG PO SCH ×3 (09:08→21:06)
[2017-06-04] MEDS: Lactobacillus Acidophilu (GG)* 1 CAP CAP PO SCH ×2 (09:09→21:06)
[2017-06-04] MEDS: metroNIDAZOLE TAB* 250 MG PO SCH ×2 (09:09→21:06)
[2017-06-04] MEDS: Nystatin CREAM* 15 GM TUBE TOPICAL SCH ×2 (09:09→21:09)
[2017-06-04] MEDS: Folic Acid TAB* 1 MG PO SCH (09:09)
[2017-06-04] MEDS: Furosemide TAB* 40 MG PO SCH ×2 (09:09→21:07)
[2017-06-04] MEDS: Cyanocobalamin TAB* 500 MCG PO SCH (09:09)
[2017-06-04] MEDS: Ferrous Gluconate TAB* 324 MG TAB PO SCH ×2 (09:09→21:06)
[2017-06-04] MEDS: Omeprazole CAP* 20 MG PO SCH (09:09)
[2017-06-04] MEDS: Aspirin EC Low Dose* 81 MG TAB.EC PO SCH (09:09)
[2017-06-04] MEDS: Vancomycin(*) 1,000 MG in NS 0.9% 250 ML* 250 ML IVPB SCH (10:32)
[2017-06-04] MEDS: Enoxaparin(*) 40 MG/0.4 ML SYR SUBCUT SCH (17:07)
[2017-06-04] MEDS: fentaNYL PATCH 75 MCG/HR* 75 MCG TRANSDERM SCH (17:07)
[2017-06-05] MEDS: Acetaminophen TAB* 325 MG PO PRN ×2 (03:41→20:46)
[2017-06-05] MEDS: fentaNYL Patch Check Q Shift 1 NOTE SCH ×2 (07:36→18:53)
[2017-06-05] MEDS: Omeprazole CAP* 20 MG PO SCH (07:36)
[2017-06-05] MEDS: Folic Acid TAB* 1 MG PO SCH (08:55)
[2017-06-05] MEDS: Cholecalciferol TAB* 1000 UNITS PO SCH (08:56)
[2017-06-05] MEDS: Zinc Sulfate CAP* 220 MG PO SCH (08:57)
[2017-06-05] MEDS: Ferrous Gluconate TAB* 324 MG TAB PO SCH ×2 (08:57→20:46)
[2017-06-05] MEDS: Lactobacillus Acidophilu (GG)* 1 CAP CAP PO SCH ×2 (08:57→20:47)
[2017-06-05] MEDS: Ascorbic Acid TAB* 500 MG PO SCH (08:57)
[2017-06-05] MEDS: Furosemide TAB* 40 MG PO SCH ×2 (08:57→20:47)
[2017-06-05] MEDS: metroNIDAZOLE TAB* 250 MG PO SCH ×2 (08:57→20:47)
[2017-06-05] MEDS: Aspirin EC Low Dose* 81 MG TAB.EC PO SCH (08:58)
[2017-06-05] MEDS: Cyanocobalamin TAB* 500 MCG PO SCH (08:58)
[2017-06-05] MEDS: Ciprofloxacin TAB* 750 MG PO SCH ×2 (08:58→20:47)
[2017-06-05] MEDS: Pregabalin CAP(*) 50 MG PO SCH ×3 (08:58→20:46)
[2017-06-05] MEDS: Hydrocortisone 1% CREAM* 30 GM TUBE TOPICAL SCH ×3 (09:03→21:06)
[2017-06-05] MEDS: Nystatin CREAM* 15 GM TUBE TOPICAL SCH ×2 (09:04→21:04)
[2017-06-05] MEDS ORDERED: Vancomycin Trough Check NOTE FOLLOW UP ONE (09:30)
[2017-06-05] MEDS: Vancomycin(*) 1,000 MG in NS 0.9% 250 ML* 250 ML IVPB SCH (13:04)
[2017-06-05] MEDS: oxyCODONE TAB* 5 MG TAB PO PRN (14:33)
[2017-06-05] MEDS: Enoxaparin(*) 40 MG/0.4 ML SYR SUBCUT SCH (17:31)
[2017-06-06] MEDS: fentaNYL Patch Check Q Shift 1 NOTE SCH ×2 (06:48→18:49)
[2017-06-06] MEDS: Ciprofloxacin TAB* 750 MG PO SCH ×2 (09:59→21:15)
[2017-06-06] MEDS: Lactobacillus Acidophilu (GG)* 1 CAP CAP PO SCH ×2 (09:59→21:13)
[2017-06-06] MEDS: Omeprazole CAP* 20 MG PO SCH (09:59)
[2017-06-06] MEDS: metroNIDAZOLE TAB* 250 MG PO SCH ×2 (09:59→21:14)
[2017-06-06] MEDS: Folic Acid TAB* 1 MG PO SCH (09:59)
[2017-06-06] MEDS: Ferrous Gluconate TAB* 324 MG TAB PO SCH (10:00)
[2017-06-06] MEDS: Aspirin EC Low Dose* 81 MG TAB.EC PO SCH (10:00)
[2017-06-06] MEDS: Furosemide TAB* 40 MG PO SCH ×2 (10:00→21:14)
[2017-06-06] MEDS: Ascorbic Acid TAB* 500 MG PO SCH (10:00)
[2017-06-06] MEDS: Cholecalciferol TAB* 1000 UNITS PO SCH (10:00)
[2017-06-06] MEDS: Pregabalin CAP(*) 50 MG PO SCH ×3 (10:00→21:15)
[2017-06-06] MEDS: Cyanocobalamin TAB* 500 MCG PO SCH (10:00)
[2017-06-06] MEDS: Nystatin CREAM* 15 GM TUBE TOPICAL SCH ×2 (10:01→21:19)
[2017-06-06] MEDS: Zinc Sulfate CAP* 220 MG PO SCH (10:01)
[2017-06-06] MEDS: Hydrocortisone 1% CREAM* 30 GM TUBE TOPICAL SCH ×3 (10:02→21:20)
--- NOTE | 2017-06-06 10:40 | PN ---
Subjective Date of Service: 06/06/17 Interval History: Little pain. Appetite OK. No new c/o. Family History: Unchanged from Admission Social History: Unchanged from Admission Past Medical History: Unchanged from Admission Objective Active Medications: Acetaminophen (Tylenol Tab*) 650 mg PO Q6H PRN PRN Reason: FEVER/PAIN Last Admin: 06/05/17 20:46 Dose: 650 mg Ascorbic Acid (Vitamin C Tab*) 500 mg PO DAILY [facility] Last Admin: 06/06/17 10:00 Dose: 500 mg Aspirin (Aspirin Ec Low Dose*) 81 mg PO DAILY [facility] Last Admin: 06/06/17 10:00 Dose: 81 mg Cholecalciferol (Vitamin D Tab*) 5,000 units PO DAILY [facility] Last Admin: 06/06/17 10:00 Dose: 5,000 units Ciprofloxacin (Cipro Tab*) 750 mg PO Q12HR [facility] Last Admin: 06/06/17 09:59 Dose: 750 mg Cyanocobalamin (Vitamin B12 Tab*) 1,000 mcg PO DAILY [facility] Last Admin: 06/06/17 10:00 Dose: 1,000 mcg Diphenoxylate HCl/Atropine (Lomotil Tab*) 1 tab PO QID PRN PRN Reason: DIARRHEA Last Admin: 05/14/17 20:04 Dose: 1 tab Enoxaparin Sodium (Lovenox(*)) 40 mg SUBCUT Q24H [facility] Last Admin: 06/05/17 17:31 Dose: 40 mg Fentanyl (Duragesic Patch 75 Mcg/Hr*) 75 mcg TRANSDERM Q72H [facility] Last Admin: 06/04/17 17:07 Dose: 75 mcg Ferrous Gluconate (Fergon Tab*) 324 mg PO BID [facility] Last Admin: 06/06/17 10:00 Dose: 324 mg Folic Acid (Folvite Tab*) 0.5 mg PO DAILY [facility] Last Admin: 06/06/17 09:59 Dose: 0.5 mg Furosemide (Lasix Tab*) 40 mg PO BID [facility] Last Admin: 06/06/17 10:00 Dose: 40 mg Heparin Sodium (Porcine) (Heparin Flush Picc/Ml/Cvc(*)) 0 ml IV FLUSH 0600, 1800 [facility] PRN Reason: Protocol Last Admin: 06/06/17 06:02 Dose: 1 ml Hydrocortisone (Hytone Cream 1%*) 1 applic TOPICAL TID [facility] Last Admin: 06/06/17 10:02 Dose: Not Given Vancomycin HCl 1,000 mg/ (Sodium Chloride) 250 mls @ 166.667 mls/hr IVPB Q24H [facility] Last Admin: 06/05/17 13:04 Dose: 166.667 mls/hr Lactobacillus Rhamnosus (Culturelle*) 1 cap PO BID [facility] Last Admin: 06/06/17 09:59 Dose: 1 cap Metronidazole (Flagyl Tab*) 500 mg PO BID [facility] Last Admin: 06/06/17 09:59 Dose: 500 mg Nystatin (Nystatin Cream*) 1 applic TOPICAL BID [facility] Last Admin: 06/06/17 10:01 Dose: 1 applic Omeprazole (Prilosec Cap*) 40 mg PO DAILY@0730 [facility] Last Admin: 06/06/17 09:59 Dose: 40 mg Oxycodone HCl (Roxycodone Tab*) 10 mg PO Q8H PRN PRN Reason: PAIN Last Admin: 06/05/17 14:33 Dose: 10 mg Pharmacy Consult (Vancomycin Per Pharmacy*) 1 note FOLLOW UP . PRN PRN Reason: PER PROTOCOL Pharmacy Profile Note (Fentanyl Patch Check Q Shift) 1 note N/A 0700,1900 [facility] Last Admin: 06/06/17 06:48 Dose: 1 note Pregabalin (Lyrica Cap(*)) 150 mg PO TID [facility] Last Admin: 06/06/17 10:00 Dose: 150 mg Zinc Sulfate (Zinc-220 Cap*) 220 mg PO DAILY [facility] Last Admin: 06/06/17 10:01 Dose: 220 mg Vital Signs 06/05/17 06/05/17 06/05/17 12:57 14:32 14:33 Temperature Pulse Rate Respiratory 18 17 17 Rate 06/05/17 06/05/17 06/05/17 17:27 17:28 19:59 Temperature Pulse Rate Respiratory 18 18 17 Rate 06/05/17 06/05/17 06/05/17 20:00 20:46 21:07 Temperature 98.8 F Pulse Rate 84 Respiratory 17 16 16 Rate 06/05/17 06/06/17 22:52 10:00 Temperature Pulse Rate Respiratory 16 16 Rate Oxygen Devices in Use Now: None Appearance: Supine on Clintron bed. In good spirits. Looks comfortable. Eyes: No Scleral Icterus Neck: NL Appearance and Movements; NL JVP, No Thyroid Enlargement, Masses Respiratory: Symmetrical Chest Expansion and Respiratory Effort, Clear to Auscultation, Clear to Percussion Cardiovascular: NL Sounds; No Murmurs; No JVD, RRR, No Edema Extremities: No Edema, No Clubbing, Cyanosis, - Skin: No Rash or Ulcers, No Nodules or Sclerosis, - Neurological: Alert and Oriented x 3, NL Sensation Result Diagrams: 06/04/17 05:45 06/04/17 05:45 Assess/Plan/Problems-Billing . Assessment: 71 yo man with paraplegia s/p plastic surgery for Stage IV sacral wound and acute osteomyelitis as well as chronic pain. - Patient Problems (1) S/P flap graft Current Visit: Yes Status: Acute Priority: High Code(s): Z98.890 - OTHER SPECIFIED POSTPROCEDURAL STATES SNOMED Code(s): 959856414 Comment: - 05/02/2017 Continue Clinitron bed, wound care, T&P. Teleconference with his plastic surgeon scheduled for 06/12/17. Continue fentanyl patch, PRN oxycodone, APAP. (2) Anemia Current Visit: No Status: Chronic Code(s): D64.9 - ANEMIA, UNSPECIFIED SNOMED Code(s): 283390282 Comment: - Suspect anemia of chronic disease and SILVIA. - Stool for occult blood negative. - No s/s of bleeding. - Continue iron supplementation, B12, folate. Reduce iron to once daily. Soluble transferrin factor ordered for 06/07/17. (3) CAD (coronary artery disease) Current Visit: No Status: Chronic Code(s): I25.10 - ATHSCL HEART DISEASE OF [place] CORONARY ARTERY W/O ANG PCTRS SNOMED Code(s): 43748649 Comment: - Asymptomatic - Continue ASA. (4) Neurogenic bladder Current Visit: No Status: Chronic Priority: High Code(s): N31.9 - NEUROMUSCULAR DYSFUNCTION OF BLADDER, UNSPECIFIED SNOMED Code(s): 690661594 Comment: - With chronic indwelling urinary catheter
[2017-06-06] MEDS: Vancomycin(*) 1,000 MG in NS 0.9% 250 ML* 250 ML IVPB SCH (11:36)
[2017-06-06] MEDS: Enoxaparin(*) 40 MG/0.4 ML SYR SUBCUT SCH (18:48)
[2017-06-07] MEDS: fentaNYL Patch Check Q Shift 1 NOTE SCH ×2 (07:17→23:36)
[2017-06-07] MEDS: Omeprazole CAP* 20 MG PO SCH (08:17)
[2017-06-07] MEDS: metroNIDAZOLE TAB* 250 MG PO SCH ×2 (09:11→20:45)
[2017-06-07] MEDS: Aspirin EC Low Dose* 81 MG TAB.EC PO SCH (09:11)
[2017-06-07] MEDS: Cholecalciferol TAB* 1000 UNITS PO SCH (09:11)
[2017-06-07] MEDS: Furosemide TAB* 40 MG PO SCH ×2 (09:11→20:45)
[2017-06-07] MEDS: Lactobacillus Acidophilu (GG)* 1 CAP CAP PO SCH ×2 (09:11→20:45)
[2017-06-07] MEDS: Cyanocobalamin TAB* 500 MCG PO SCH (09:11)
[2017-06-07] MEDS: Ciprofloxacin TAB* 750 MG PO SCH ×2 (09:11→20:45)
[2017-06-07] MEDS: Ferrous Gluconate TAB* 324 MG TAB PO SCH (09:11)
[2017-06-07] MEDS: Pregabalin CAP(*) 50 MG PO SCH ×3 (09:11→20:45)
[2017-06-07] MEDS: Zinc Sulfate CAP* 220 MG PO SCH (09:11)
[2017-06-07] MEDS: Ascorbic Acid TAB* 500 MG PO SCH (09:11)
[2017-06-07] MEDS: Folic Acid TAB* 1 MG PO SCH (09:11)
[2017-06-07] MEDS: Hydrocortisone 1% CREAM* 30 GM TUBE TOPICAL SCH ×3 (09:12→20:46)
[2017-06-07] MEDS: Nystatin CREAM* 15 GM TUBE TOPICAL SCH ×2 (09:12→23:52)
[2017-06-07] MEDS: Vancomycin(*) 1,000 MG in NS 0.9% 250 ML* 250 ML IVPB SCH (11:07)
[2017-06-07] MEDS: fentaNYL PATCH 75 MCG/HR* 75 MCG TRANSDERM SCH (17:12)
[2017-06-07] MEDS: Enoxaparin(*) 40 MG/0.4 ML SYR SUBCUT SCH (17:14)
[2017-06-08] MEDS: fentaNYL Patch Check Q Shift 1 NOTE SCH ×2 (06:52→19:10)
[2017-06-08] MEDS: metroNIDAZOLE TAB* 250 MG PO SCH ×2 (08:54→21:32)
[2017-06-08] MEDS: Zinc Sulfate CAP* 220 MG PO SCH (08:54)
[2017-06-08] MEDS: Omeprazole CAP* 20 MG PO SCH (08:54)
[2017-06-08] MEDS: Ferrous Gluconate TAB* 324 MG TAB PO SCH (08:54)
[2017-06-08] MEDS: Cholecalciferol TAB* 1000 UNITS PO SCH (08:54)
[2017-06-08] MEDS: Lactobacillus Acidophilu (GG)* 1 CAP CAP PO SCH ×2 (08:56→21:32)
[2017-06-08] MEDS: Furosemide TAB* 40 MG PO SCH ×2 (08:59→21:32)
[2017-06-08] MEDS: Aspirin EC Low Dose* 81 MG TAB.EC PO SCH (08:59)
[2017-06-08] MEDS: Folic Acid TAB* 1 MG PO SCH (08:59)
[2017-06-08] MEDS: Cyanocobalamin TAB* 500 MCG PO SCH (08:59)
[2017-06-08] MEDS: Ciprofloxacin TAB* 750 MG PO SCH ×2 (08:59→21:32)
[2017-06-08] MEDS: Ascorbic Acid TAB* 500 MG PO SCH (08:59)
[2017-06-08] MEDS: Pregabalin CAP(*) 50 MG PO SCH ×3 (09:35→21:32)
[2017-06-08] MEDS: Nystatin CREAM* 15 GM TUBE TOPICAL SCH ×2 (09:50→21:33)
[2017-06-08] MEDS: Hydrocortisone 1% CREAM* 30 GM TUBE TOPICAL SCH ×3 (09:53→21:33)
[2017-06-08] MEDS: Vancomycin(*) 1,000 MG in NS 0.9% 250 ML* 250 ML IVPB SCH (10:16)
[2017-06-08] MEDS: Enoxaparin(*) 40 MG/0.4 ML SYR SUBCUT SCH (16:56)
[2017-06-09] MEDS ORDERED: Alteplase (CATHFLO)* 2 MG VIAL IV ONE (03:24)
[2017-06-09 05:46] LABS: EGFR Non-African American 56.9 (>60)
[2017-06-09] MEDS: fentaNYL Patch Check Q Shift 1 NOTE SCH ×2 (06:40→18:44)
[2017-06-09] MEDS: Pregabalin CAP(*) 50 MG PO SCH ×3 (08:59→19:46)
[2017-06-09] MEDS: Cholecalciferol TAB* 1000 UNITS PO SCH (09:00)
[2017-06-09] MEDS: Lactobacillus Acidophilu (GG)* 1 CAP CAP PO SCH ×2 (09:00→19:46)
[2017-06-09] MEDS: Zinc Sulfate CAP* 220 MG PO SCH (09:00)
[2017-06-09] MEDS: metroNIDAZOLE TAB* 250 MG PO SCH ×2 (09:00→19:46)
[2017-06-09] MEDS: Aspirin EC Low Dose* 81 MG TAB.EC PO SCH (09:01)
[2017-06-09] MEDS: Ascorbic Acid TAB* 500 MG PO SCH (09:01)
[2017-06-09] MEDS: Folic Acid TAB* 1 MG PO SCH (09:01)
[2017-06-09] MEDS: Cyanocobalamin TAB* 500 MCG PO SCH (09:01)
[2017-06-09] MEDS: Furosemide TAB* 40 MG PO SCH ×2 (09:01→19:46)
[2017-06-09] MEDS: Omeprazole CAP* 20 MG PO SCH (09:02)
[2017-06-09] MEDS: Ferrous Gluconate TAB* 324 MG TAB PO SCH (09:02)
[2017-06-09] MEDS: Ciprofloxacin TAB* 750 MG PO SCH ×2 (09:02→19:46)
[2017-06-09] MEDS: Hydrocortisone 1% CREAM* 30 GM TUBE TOPICAL SCH ×3 (09:03→19:45)
[2017-06-09] MEDS: Nystatin CREAM* 15 GM TUBE TOPICAL SCH ×2 (09:03→19:45)
[2017-06-09] MEDS ORDERED: Vancomycin Trough Check NOTE FOLLOW UP ONE (09:30)
[2017-06-09] MEDS: Vancomycin(*) 1,000 MG in NS 0.9% 250 ML* 250 ML IVPB SCH (10:34)
[2017-06-09] MEDS: oxyCODONE TAB* 5 MG TAB PO PRN (12:57)
[2017-06-09] MEDS: Enoxaparin(*) 40 MG/0.4 ML SYR SUBCUT SCH (17:35)
[2017-06-10] MEDS: fentaNYL Patch Check Q Shift 1 NOTE SCH ×2 (07:20→18:49)
[2017-06-10] MEDS: Pregabalin CAP(*) 50 MG PO SCH ×3 (09:25→22:09)
[2017-06-10] MEDS: metroNIDAZOLE TAB* 250 MG PO SCH ×2 (09:25→22:09)
[2017-06-10] MEDS: Ferrous Gluconate TAB* 324 MG TAB PO SCH (09:25)
[2017-06-10] MEDS: Ascorbic Acid TAB* 500 MG PO SCH (09:25)
[2017-06-10] MEDS: Furosemide TAB* 40 MG PO SCH ×2 (09:26→22:10)
[2017-06-10] MEDS: Ciprofloxacin TAB* 750 MG PO SCH ×2 (09:26→22:10)
[2017-06-10] MEDS: Nystatin CREAM* 15 GM TUBE TOPICAL SCH ×2 (09:26→22:10)
[2017-06-10] MEDS: Omeprazole CAP* 20 MG PO SCH (09:26)
[2017-06-10] MEDS: Folic Acid TAB* 1 MG PO SCH (09:26)
[2017-06-10] MEDS: Hydrocortisone 1% CREAM* 30 GM TUBE TOPICAL SCH ×3 (09:26→22:10)
[2017-06-10] MEDS: Cholecalciferol TAB* 1000 UNITS PO SCH (09:26)
[2017-06-10] MEDS: Aspirin EC Low Dose* 81 MG TAB.EC PO SCH (09:26)
[2017-06-10] MEDS: Zinc Sulfate CAP* 220 MG PO SCH (09:26)
[2017-06-10] MEDS: Lactobacillus Acidophilu (GG)* 1 CAP CAP PO SCH ×2 (09:26→22:10)
[2017-06-10] MEDS: Cyanocobalamin TAB* 500 MCG PO SCH (09:26)
[2017-06-10] MEDS: Vancomycin(*) 1,000 MG in NS 0.9% 250 ML* 250 ML IVPB SCH (10:27)
[2017-06-10] MEDS: oxyCODONE TAB* 5 MG TAB PO PRN (16:21)
[2017-06-10] MEDS: Enoxaparin(*) 40 MG/0.4 ML SYR SUBCUT SCH (16:21)
[2017-06-10] MEDS: fentaNYL PATCH 75 MCG/HR* 75 MCG TRANSDERM SCH (16:22)
[2017-06-11] MEDS: oxyCODONE TAB* 5 MG TAB PO PRN (05:09)
[2017-06-11 05:35] LABS: Hematocrit 38 % (42-52); Hemoglobin 12.7 g/dl (14.0-18.0); Mean Platelet Volume 8 um3 (7.4-10.4); Platelet Count 237 10^3/ul (150-450)
[2017-06-11] MEDS: fentaNYL Patch Check Q Shift 1 NOTE SCH ×2 (06:57→18:46)
[2017-06-11] MEDS: metroNIDAZOLE TAB* 250 MG PO SCH ×2 (09:16→21:55)
[2017-06-11] MEDS: Furosemide TAB* 40 MG PO SCH ×2 (09:16→21:54)
[2017-06-11] MEDS: Cyanocobalamin TAB* 500 MCG PO SCH (09:16)
[2017-06-11] MEDS: Ciprofloxacin TAB* 750 MG PO SCH ×2 (09:16→21:54)
[2017-06-11] MEDS: Lactobacillus Acidophilu (GG)* 1 CAP CAP PO SCH ×2 (09:16→21:54)
[2017-06-11] MEDS: Zinc Sulfate CAP* 220 MG PO SCH (09:16)
[2017-06-11] MEDS: Cholecalciferol TAB* 1000 UNITS PO SCH (09:16)
[2017-06-11] MEDS: Omeprazole CAP* 20 MG PO SCH (09:16)
[2017-06-11] MEDS: Aspirin EC Low Dose* 81 MG TAB.EC PO SCH (09:16)
[2017-06-11] MEDS: Ferrous Gluconate TAB* 324 MG TAB PO SCH (09:16)
[2017-06-11] MEDS: Ascorbic Acid TAB* 500 MG PO SCH (09:16)
[2017-06-11] MEDS: Folic Acid TAB* 1 MG PO SCH (09:17)
[2017-06-11] MEDS: Pregabalin CAP(*) 50 MG PO SCH ×3 (09:24→21:54)
[2017-06-11] MEDS: Nystatin CREAM* 15 GM TUBE TOPICAL SCH ×2 (10:14→21:56)
[2017-06-11] MEDS: Hydrocortisone 1% CREAM* 30 GM TUBE TOPICAL SCH (10:15)
[2017-06-11] MEDS: Vancomycin(*) 1,000 MG in NS 0.9% 250 ML* 250 ML IVPB SCH (10:15)
[2017-06-11] MEDS: Enoxaparin(*) 40 MG/0.4 ML SYR SUBCUT SCH (17:39)
[2017-06-11] MEDS: Clobetasol 0.05% OINT* 30 GM TUBE TOPICAL SCH (21:53)
[2017-06-12] MEDS: fentaNYL Patch Check Q Shift 1 NOTE SCH ×2 (07:09→19:11)
[2017-06-12] MEDS: Aspirin EC Low Dose* 81 MG TAB.EC PO SCH (08:29)
[2017-06-12] MEDS: Furosemide TAB* 40 MG PO SCH ×2 (08:29→20:32)
[2017-06-12] MEDS: Ferrous Gluconate TAB* 324 MG TAB PO SCH (08:29)
[2017-06-12] MEDS: Ascorbic Acid TAB* 500 MG PO SCH (08:30)
[2017-06-12] MEDS: Pregabalin CAP(*) 50 MG PO SCH ×3 (08:30→20:31)
[2017-06-12] MEDS: Folic Acid TAB* 1 MG PO SCH (08:31)
[2017-06-12] MEDS: metroNIDAZOLE TAB* 250 MG PO SCH ×2 (08:31→20:31)
[2017-06-12] MEDS: Cyanocobalamin TAB* 500 MCG PO SCH (08:33)
[2017-06-12] MEDS: Cholecalciferol TAB* 1000 UNITS PO SCH (08:34)
[2017-06-12] MEDS: Omeprazole CAP* 20 MG PO SCH (08:35)
[2017-06-12] MEDS: Lactobacillus Acidophilu (GG)* 1 CAP CAP PO SCH ×2 (08:36→20:31)
[2017-06-12] MEDS: Zinc Sulfate CAP* 220 MG PO SCH (08:36)
[2017-06-12] MEDS: Ciprofloxacin TAB* 750 MG PO SCH ×2 (08:45→20:32)
[2017-06-12] MEDS: Nystatin CREAM* 15 GM TUBE TOPICAL SCH ×2 (08:56→20:34)
[2017-06-12] MEDS: Clobetasol 0.05% OINT* 30 GM TUBE TOPICAL SCH ×2 (08:56→20:34)
[2017-06-12] MEDS: Vancomycin(*) 1,000 MG in NS 0.9% 250 ML* 250 ML IVPB SCH (10:11)
[2017-06-12] MEDS: Enoxaparin(*) 40 MG/0.4 ML SYR SUBCUT SCH (16:51)
[2017-06-12] MEDS: oxyCODONE TAB* 5 MG TAB PO PRN (20:32)
--- NOTE | 2017-06-12 20:35 | PN ---
Hospitalist Progress Note Telemedicine Consultation with Dr. Yassine Grady of [facility] today. He is happy with the progression of the flap. WOuld like small open area at apex of wound packed with damp 2x2 gauze BID. Sutures on long stretches of incision of to remove if irritating. OK to stop antibiotics tomorrow as planned. OK to start PT/OT and sitting up for meals starting with 30mins TID and increasing as tolerated. Avoiding Shearing forces on flap is paramount. Would recommend rehab after hospitalization and a repeat telecommunications consult in 3weeks.
[2017-06-13] MEDS: fentaNYL Patch Check Q Shift 1 NOTE SCH ×2 (06:31→19:02)
[2017-06-13] MEDS: Omeprazole CAP* 20 MG PO SCH (07:54)
[2017-06-13] MEDS: metroNIDAZOLE TAB* 250 MG PO SCH ×2 (08:47→21:55)
[2017-06-13] MEDS: Cholecalciferol TAB* 1000 UNITS PO SCH (08:47)
[2017-06-13] MEDS: Ascorbic Acid TAB* 500 MG PO SCH (08:48)
[2017-06-13] MEDS: Lactobacillus Acidophilu (GG)* 1 CAP CAP PO SCH ×2 (08:48→21:54)
[2017-06-13] MEDS: Pregabalin CAP(*) 50 MG PO SCH ×3 (08:48→21:54)
[2017-06-13] MEDS: Ciprofloxacin TAB* 750 MG PO SCH ×2 (08:48→21:54)
[2017-06-13] MEDS: Zinc Sulfate CAP* 220 MG PO SCH (08:48)
[2017-06-13] MEDS: Aspirin EC Low Dose* 81 MG TAB.EC PO SCH (08:48)
[2017-06-13] MEDS: Cyanocobalamin TAB* 500 MCG PO SCH (08:48)
[2017-06-13] MEDS: Furosemide TAB* 40 MG PO SCH ×2 (08:49→21:54)
[2017-06-13] MEDS: Ferrous Gluconate TAB* 324 MG TAB PO SCH (08:49)
[2017-06-13] MEDS: Folic Acid TAB* 1 MG PO SCH (08:49)
[2017-06-13] MEDS: Clobetasol 0.05% OINT* 30 GM TUBE TOPICAL SCH ×2 (08:54→22:07)
[2017-06-13] MEDS: Nystatin CREAM* 15 GM TUBE TOPICAL SCH ×2 (08:55→22:07)
[2017-06-13] MEDS: Vancomycin(*) 1,000 MG in NS 0.9% 250 ML* 250 ML IVPB SCH (10:05)
[2017-06-13] MEDS: oxyCODONE TAB* 5 MG TAB PO PRN (17:51)
[2017-06-13] MEDS: fentaNYL PATCH 75 MCG/HR* 75 MCG TRANSDERM SCH (17:54)
[2017-06-13] MEDS: Enoxaparin(*) 40 MG/0.4 ML SYR SUBCUT SCH (18:00)
[2017-06-13] MEDS: Acetaminophen TAB* 325 MG PO PRN (21:56)
[2017-06-14] MEDS: fentaNYL Patch Check Q Shift 1 NOTE SCH ×2 (07:19→19:25)
[2017-06-14] MEDS: Omeprazole CAP* 20 MG PO SCH (07:33)
[2017-06-14] MEDS: Aspirin EC Low Dose* 81 MG TAB.EC PO SCH (09:18)
[2017-06-14] MEDS: Ascorbic Acid TAB* 500 MG PO SCH (09:18)
[2017-06-14] MEDS: Cholecalciferol TAB* 1000 UNITS PO SCH (09:18)
[2017-06-14] MEDS: Cyanocobalamin TAB* 500 MCG PO SCH (09:20)
[2017-06-14] MEDS: Pregabalin CAP(*) 50 MG PO SCH ×3 (09:22→22:07)
[2017-06-14] MEDS: Ferrous Gluconate TAB* 324 MG TAB PO SCH (09:22)
[2017-06-14] MEDS: Lactobacillus Acidophilu (GG)* 1 CAP CAP PO SCH ×2 (09:24→22:07)
[2017-06-14] MEDS: Furosemide TAB* 40 MG PO SCH ×2 (09:24→22:08)
[2017-06-14] MEDS: Zinc Sulfate CAP* 220 MG PO SCH (09:25)
[2017-06-14] MEDS: Folic Acid TAB* 1 MG PO SCH (09:25)
[2017-06-14] MEDS: Nystatin CREAM* 15 GM TUBE TOPICAL SCH ×2 (09:26→22:09)
[2017-06-14] MEDS: Clobetasol 0.05% OINT* 30 GM TUBE TOPICAL SCH ×2 (09:29→22:09)
[2017-06-14] MEDS: oxyCODONE TAB* 5 MG TAB PO PRN ×2 (12:39→22:08)
--- NOTE | 2017-06-14 15:39 | PN ---
Hospitalist Progress Note Date of Service: 06/14/17 Patient seen and wound examined. Stray sutures removed from straight areas of flap. Middle of sutures have dissolved and they are unlikely to be providing any support at any area of the incision. All antibiotics discontinued at this time.
[2017-06-14] MEDS: Enoxaparin(*) 40 MG/0.4 ML SYR SUBCUT SCH (16:48)
[2017-06-14] MEDS: Acetaminophen TAB* 325 MG PO PRN (16:58)
[2017-06-15] MEDS: fentaNYL Patch Check Q Shift 1 NOTE SCH ×2 (07:14→19:01)
[2017-06-15] MEDS: Folic Acid TAB* 1 MG PO SCH (10:16)
[2017-06-15] MEDS: Lactobacillus Acidophilu (GG)* 1 CAP CAP PO SCH ×2 (10:16→20:34)
[2017-06-15] MEDS: Omeprazole CAP* 20 MG PO SCH (10:16)
[2017-06-15] MEDS: Pregabalin CAP(*) 50 MG PO SCH ×3 (10:16→20:34)
[2017-06-15] MEDS: Ferrous Gluconate TAB* 324 MG TAB PO SCH (10:17)
[2017-06-15] MEDS: Furosemide TAB* 40 MG PO SCH ×2 (10:17→20:34)
[2017-06-15] MEDS: Ascorbic Acid TAB* 500 MG PO SCH (10:17)
[2017-06-15] MEDS: Zinc Sulfate CAP* 220 MG PO SCH (10:17)
[2017-06-15] MEDS: Cyanocobalamin TAB* 500 MCG PO SCH (10:17)
[2017-06-15] MEDS: Aspirin EC Low Dose* 81 MG TAB.EC PO SCH (10:17)
[2017-06-15] MEDS: Cholecalciferol TAB* 1000 UNITS PO SCH (10:17)
[2017-06-15] MEDS: Clobetasol 0.05% OINT* 30 GM TUBE TOPICAL SCH ×2 (10:18→20:35)
[2017-06-15] MEDS: Nystatin CREAM* 15 GM TUBE TOPICAL SCH ×2 (10:18→21:19)
[2017-06-15] MEDS: Enoxaparin(*) 40 MG/0.4 ML SYR SUBCUT SCH (16:27)
[2017-06-15] MEDS: oxyCODONE TAB* 5 MG TAB PO PRN (18:43)
[2017-06-16] MEDS: oxyCODONE TAB* 5 MG TAB PO PRN ×2 (03:14→16:32)
[2017-06-16] MEDS: fentaNYL Patch Check Q Shift 1 NOTE SCH ×2 (06:56→19:03)
[2017-06-16] MEDS: Omeprazole CAP* 20 MG PO SCH (08:25)
[2017-06-16] MEDS: Clobetasol 0.05% OINT* 30 GM TUBE TOPICAL SCH ×2 (08:26→20:14)
[2017-06-16] MEDS: Aspirin EC Low Dose* 81 MG TAB.EC PO SCH (08:58)
[2017-06-16] MEDS: Furosemide TAB* 40 MG PO SCH ×2 (08:58→20:13)
[2017-06-16] MEDS: Zinc Sulfate CAP* 220 MG PO SCH (08:58)
[2017-06-16] MEDS: Ferrous Gluconate TAB* 324 MG TAB PO SCH (08:58)
[2017-06-16] MEDS: Lactobacillus Acidophilu (GG)* 1 CAP CAP PO SCH ×2 (08:58→20:13)
[2017-06-16] MEDS: Ascorbic Acid TAB* 500 MG PO SCH (08:58)
[2017-06-16] MEDS: Cyanocobalamin TAB* 500 MCG PO SCH (08:58)
[2017-06-16] MEDS: Cholecalciferol TAB* 1000 UNITS PO SCH (08:58)
[2017-06-16] MEDS: Folic Acid TAB* 1 MG PO SCH (08:58)
[2017-06-16] MEDS: Pregabalin CAP(*) 50 MG PO SCH ×3 (08:58→20:13)
[2017-06-16] MEDS: Nystatin CREAM* 15 GM TUBE TOPICAL SCH ×2 (08:59→20:16)
[2017-06-16] MEDS: fentaNYL PATCH 75 MCG/HR* 75 MCG TRANSDERM SCH (16:32)
[2017-06-16] MEDS: Enoxaparin(*) 40 MG/0.4 ML SYR SUBCUT SCH (16:35)
[2017-06-17] MEDS: fentaNYL Patch Check Q Shift 1 NOTE SCH ×3 (06:48→18:56)
[2017-06-17] MEDS: Omeprazole CAP* 20 MG PO SCH (07:49)
[2017-06-17] MEDS: Clobetasol 0.05% OINT* 30 GM TUBE TOPICAL SCH ×2 (07:53→20:51)
[2017-06-17] MEDS: Zinc Sulfate CAP* 220 MG PO SCH (09:02)
[2017-06-17] MEDS: Cholecalciferol TAB* 1000 UNITS PO SCH (09:02)
[2017-06-17] MEDS: Pregabalin CAP(*) 50 MG PO SCH ×3 (09:02→20:50)
[2017-06-17] MEDS: Cyanocobalamin TAB* 500 MCG PO SCH (09:03)
[2017-06-17] MEDS: Furosemide TAB* 40 MG PO SCH ×2 (09:03→20:50)
[2017-06-17] MEDS: Ferrous Gluconate TAB* 324 MG TAB PO SCH (09:03)
[2017-06-17] MEDS: Lactobacillus Acidophilu (GG)* 1 CAP CAP PO SCH ×2 (09:03→20:50)
[2017-06-17] MEDS: Aspirin EC Low Dose* 81 MG TAB.EC PO SCH (09:03)
[2017-06-17] MEDS: Ascorbic Acid TAB* 500 MG PO SCH (09:03)
[2017-06-17] MEDS: Folic Acid TAB* 1 MG PO SCH (09:03)
[2017-06-17] MEDS: Nystatin CREAM* 15 GM TUBE TOPICAL SCH ×2 (09:04→20:51)
--- NOTE | 2017-06-17 14:49 | PN ---
Subjective Date of Service: 06/17/17 Interval History: Patient offers no new complaints. No cough, SOB, abd pain, n/v. Family History: Unchanged from Admission Social History: Unchanged from Admission Past Medical History: Unchanged from Admission Objective Active Medications: Acetaminophen (Tylenol Tab*) 650 mg PO Q6H PRN PRN Reason: FEVER/PAIN Last Admin: 06/14/17 16:58 Dose: 650 mg Ascorbic Acid (Vitamin C Tab*) 500 mg PO DAILY [facility] Last Admin: 06/17/17 09:03 Dose: 500 mg Aspirin (Aspirin Ec Low Dose*) 81 mg PO DAILY [facility] Last Admin: 06/17/17 09:03 Dose: 81 mg Cholecalciferol (Vitamin D Tab*) 5,000 units PO DAILY [facility] Last Admin: 06/17/17 09:02 Dose: 5,000 units Clobetasol Propionate (Clobetasol 0.05% Oint*) 1 applic TOPICAL BID [facility] Stop: 06/25/17 09:00 Last Admin: 06/17/17 07:53 Dose: 1 applic Cyanocobalamin (Vitamin B12 Tab*) 1,000 mcg PO DAILY [facility] Last Admin: 06/17/17 09:03 Dose: 1,000 mcg Diphenoxylate HCl/Atropine (Lomotil Tab*) 1 tab PO QID PRN PRN Reason: DIARRHEA Last Admin: 05/14/17 20:04 Dose: 1 tab Enoxaparin Sodium (Lovenox(*)) 40 mg SUBCUT Q24H [facility] Last Admin: 06/16/17 16:35 Dose: 40 mg Fentanyl (Duragesic Patch 75 Mcg/Hr*) 75 mcg TRANSDERM Q72H [facility] Last Admin: 06/16/17 16:32 Dose: 75 mcg Ferrous Gluconate (Fergon Tab*) 324 mg PO DAILY [facility] Last Admin: 06/17/17 09:03 Dose: 324 mg Folic Acid (Folvite Tab*) 0.5 mg PO DAILY [facility] Last Admin: 06/17/17 09:03 Dose: 0.5 mg Furosemide (Lasix Tab*) 40 mg PO BID [facility] Last Admin: 06/17/17 09:03 Dose: 40 mg Heparin Sodium (Porcine) (Heparin Flush Picc/Ml/Cvc(*)) 0 ml IV FLUSH 0600, 1800 [facility] PRN Reason: Protocol Last Admin: 06/17/17 06:11 Dose: 1 ml Lactobacillus Rhamnosus (Culturelle*) 1 cap PO BID [facility] Last Admin: 06/17/17 09:03 Dose: 1 cap Nystatin (Nystatin Cream*) 1 applic TOPICAL BID [facility] Last Admin: 06/17/17 09:04 Dose: Not Given Omeprazole (Prilosec Cap*) 40 mg PO DAILY@0730 [facility] Last Admin: 06/17/17 07:49 Dose: 40 mg Oxycodone HCl (Roxycodone Tab*) 10 mg PO Q8H PRN PRN Reason: PAIN Last Admin: 06/16/17 16:32 Dose: 10 mg Pharmacy Profile Note (Fentanyl Patch Check Q Shift) 1 note N/A 0700,1900 [facility] Last Admin: 06/17/17 06:48 Dose: 1 note Pregabalin (Lyrica Cap(*)) 150 mg PO TID [facility] Last Admin: 06/17/17 13:55 Dose: 150 mg Zinc Sulfate (Zinc-220 Cap*) 220 mg PO DAILY [facility] Last Admin: 06/17/17 09:02 Dose: 220 mg Vital Signs: Temp Pulse Resp BP Pulse Ox 98.1 F 75 18 140/74 96 06/17/17 07:49 06/17/17 07:49 06/17/17 13:55 06/17/17 07:49 06/17/17 07:49 Oxygen Devices in Use Now: None Appearance: Well appearing 71 yo gentleman in NAD. Lying in bed comfortably, accompanied by his Respiratory: Symmetrical Chest Expansion and Respiratory Effort, Clear to Auscultation Cardiovascular: NL Sounds; No Murmurs; No JVD, RRR Abdominal: NL Sounds; No Tenderness; No Distention Extremities: No Edema Skin: No Rash or Ulcers Neurological: Alert and Oriented x 3 Result Diagrams: 06/11/17 05:16 06/11/17 05:16 Assess/Plan/Problems-Billing . Assessment: 71 yo man with paraplegia s/p plastic surgery for Stage IV sacral wound and acute osteomyelitis as well as chronic pain. - Patient Problems (1) S/P flap graft Comment: - 05/02/2017 at [facility] over large sacral defect Continue Clinitron bed, wound care, T&P. Last teleconference with his plastic surgeon 06/12/17, follow up in 3 weeks Continue fentanyl patch, PRN oxycodone, APAP Small open area being treated with Medihoney and gauze (2) Acute osteomyelitis of sacrum Comment: s/p debridement at time of flap creation at [facility] Completed antibiotics 06/13 (3) Paraplegia Comment: Secondary to ependymoma PT / OT as allowed by plastics (4) Chronic indwelling Fischer catheter Comment: Secondary to neurogenic bladder (5) DVT prophylaxis Comment: Lovenox, SCDs (6) Full code status Status and Disposition: Swing. PT/OT. PT to resume UE strengthening activities
[2017-06-17] MEDS: oxyCODONE TAB* 5 MG TAB PO PRN (16:48)
[2017-06-17] MEDS: Enoxaparin(*) 40 MG/0.4 ML SYR SUBCUT SCH (16:49)
[2017-06-18 05:43] LABS: Hematocrit 38 % (42-52); Hemoglobin 12.6 g/dl (14.0-18.0); Mean Platelet Volume 9 um3 (7.4-10.4); Platelet Count 214 10^3/ul (150-450)
[2017-06-18] MEDS: fentaNYL Patch Check Q Shift 1 NOTE SCH ×2 (06:47→18:30)
[2017-06-18] MEDS: Omeprazole CAP* 20 MG PO SCH (07:55)
[2017-06-18 09:08] LABS: White Blood Count 7.3 10^3/ul (3.5-10.8)
[2017-06-18] MEDS: Furosemide TAB* 40 MG PO SCH ×2 (09:13→20:21)
[2017-06-18] MEDS: Cyanocobalamin TAB* 500 MCG PO SCH (09:13)
[2017-06-18] MEDS: Cholecalciferol TAB* 1000 UNITS PO SCH (09:14)
[2017-06-18] MEDS: Ferrous Gluconate TAB* 324 MG TAB PO SCH (09:14)
[2017-06-18] MEDS: Pregabalin CAP(*) 50 MG PO SCH ×3 (09:14→20:20)
[2017-06-18] MEDS: Zinc Sulfate CAP* 220 MG PO SCH (09:14)
[2017-06-18] MEDS: Ascorbic Acid TAB* 500 MG PO SCH (09:14)
[2017-06-18] MEDS: Lactobacillus Acidophilu (GG)* 1 CAP CAP PO SCH ×2 (09:15→20:21)
[2017-06-18] MEDS: Aspirin EC Low Dose* 81 MG TAB.EC PO SCH (09:15)
[2017-06-18] MEDS: Folic Acid TAB* 1 MG PO SCH (09:15)
[2017-06-18] MEDS: Clobetasol 0.05% OINT* 30 GM TUBE TOPICAL SCH ×2 (09:19→20:22)
[2017-06-18] MEDS: Nystatin CREAM* 15 GM TUBE TOPICAL SCH ×2 (09:19→20:38)
[2017-06-18] MEDS: oxyCODONE TAB* 5 MG TAB PO PRN (15:01)
[2017-06-18] MEDS: Enoxaparin(*) 40 MG/0.4 ML SYR SUBCUT SCH (17:20)
[2017-06-18] MEDS: Acetaminophen TAB* 325 MG PO PRN (20:20)
[2017-06-19] MEDS: fentaNYL Patch Check Q Shift 1 NOTE SCH ×2 (06:57→18:50)
[2017-06-19] MEDS: Omeprazole CAP* 20 MG PO SCH (07:41)
[2017-06-19] MEDS: Cholecalciferol TAB* 1000 UNITS PO SCH (09:45)
[2017-06-19] MEDS: Ascorbic Acid TAB* 500 MG PO SCH (09:46)
[2017-06-19] MEDS: Zinc Sulfate CAP* 220 MG PO SCH (09:47)
[2017-06-19] MEDS: Aspirin EC Low Dose* 81 MG TAB.EC PO SCH (09:47)
[2017-06-19] MEDS: Furosemide TAB* 40 MG PO SCH ×2 (09:47→20:52)
[2017-06-19] MEDS: Lactobacillus Acidophilu (GG)* 1 CAP CAP PO SCH ×2 (09:47→20:53)
[2017-06-19] MEDS: Ferrous Gluconate TAB* 324 MG TAB PO SCH (09:47)
[2017-06-19] MEDS: Cyanocobalamin TAB* 500 MCG PO SCH (09:48)
[2017-06-19] MEDS: Pregabalin CAP(*) 50 MG PO SCH ×3 (09:48→20:53)
[2017-06-19] MEDS: Folic Acid TAB* 1 MG PO SCH (09:49)
[2017-06-19] MEDS: Clobetasol 0.05% OINT* 30 GM TUBE TOPICAL SCH ×2 (09:50→20:55)
[2017-06-19] MEDS: Nystatin CREAM* 15 GM TUBE TOPICAL SCH ×2 (09:50→20:55)
[2017-06-19] MEDS: Diphenoxylat/Atrop 2.5-0.025M* 1 TAB PO PRN (13:52)
[2017-06-19] MEDS: oxyCODONE TAB* 5 MG TAB PO PRN (13:53)
[2017-06-19] MEDS: fentaNYL PATCH 75 MCG/HR* 75 MCG TRANSDERM SCH (17:38)
[2017-06-19] MEDS: Enoxaparin(*) 40 MG/0.4 ML SYR SUBCUT SCH (17:40)
[2017-06-20] MEDS: fentaNYL Patch Check Q Shift 1 NOTE SCH ×2 (06:57→18:44)
[2017-06-20] MEDS: Folic Acid TAB* 1 MG PO SCH (09:19)
[2017-06-20] MEDS: Omeprazole CAP* 20 MG PO SCH (09:20)
[2017-06-20] MEDS: Pregabalin CAP(*) 50 MG PO SCH ×3 (09:20→22:07)
[2017-06-20] MEDS: Cyanocobalamin TAB* 500 MCG PO SCH (09:20)
[2017-06-20] MEDS: Zinc Sulfate CAP* 220 MG PO SCH (09:20)
[2017-06-20] MEDS: Cholecalciferol TAB* 1000 UNITS PO SCH (09:20)
[2017-06-20] MEDS: Ferrous Gluconate TAB* 324 MG TAB PO SCH (09:20)
[2017-06-20] MEDS: Lactobacillus Acidophilu (GG)* 1 CAP CAP PO SCH ×2 (09:21→22:07)
[2017-06-20] MEDS: Aspirin EC Low Dose* 81 MG TAB.EC PO SCH (09:21)
[2017-06-20] MEDS: Furosemide TAB* 40 MG PO SCH ×2 (09:21→22:07)
[2017-06-20] MEDS: Ascorbic Acid TAB* 500 MG PO SCH (09:21)
[2017-06-20] MEDS: Clobetasol 0.05% OINT* 30 GM TUBE TOPICAL SCH ×2 (11:00→22:09)
[2017-06-20] MEDS: Nystatin CREAM* 15 GM TUBE TOPICAL SCH ×2 (14:39→22:08)
--- NOTE | 2017-06-20 15:49 | PN ---
Subjective Date of Service: 06/20/17 Interval History: Patient offers no new complaints. He began working with PT yesterday and is pleased. Denies CP, SOB, abd pain, n/v. Family History: Unchanged from Admission Social History: Unchanged from Admission Past Medical History: Unchanged from Admission Objective Active Medications: Acetaminophen (Tylenol Tab*) 650 mg PO Q6H PRN PRN Reason: FEVER/PAIN Last Admin: 06/18/17 20:20 Dose: 650 mg Ascorbic Acid (Vitamin C Tab*) 500 mg PO DAILY [facility] Last Admin: 06/20/17 09:21 Dose: 500 mg Aspirin (Aspirin Ec Low Dose*) 81 mg PO DAILY [facility] Last Admin: 06/20/17 09:21 Dose: 81 mg Cholecalciferol (Vitamin D Tab*) 5,000 units PO DAILY [facility] Last Admin: 06/20/17 09:20 Dose: 5,000 units Clobetasol Propionate (Clobetasol 0.05% Oint*) 1 applic TOPICAL BID [facility] Stop: 06/25/17 09:00 Last Admin: 06/20/17 11:00 Dose: 1 applic Cyanocobalamin (Vitamin B12 Tab*) 1,000 mcg PO DAILY [facility] Last Admin: 06/20/17 09:20 Dose: 1,000 mcg Diphenoxylate HCl/Atropine (Lomotil Tab*) 1 tab PO QID PRN PRN Reason: DIARRHEA Last Admin: 06/19/17 13:52 Dose: 1 tab Enoxaparin Sodium (Lovenox(*)) 40 mg SUBCUT Q24H [facility] Last Admin: 06/19/17 17:40 Dose: 40 mg Fentanyl (Duragesic Patch 75 Mcg/Hr*) 75 mcg TRANSDERM Q72H [facility] Last Admin: 06/19/17 17:38 Dose: 75 mcg Ferrous Gluconate (Fergon Tab*) 324 mg PO DAILY [facility] Last Admin: 06/20/17 09:20 Dose: 324 mg Folic Acid (Folvite Tab*) 0.5 mg PO DAILY [facility] Last Admin: 06/20/17 09:19 Dose: 0.5 mg Furosemide (Lasix Tab*) 40 mg PO BID [facility] Last Admin: 06/20/17 09:21 Dose: 40 mg Heparin Sodium (Porcine) (Heparin Flush Picc/Ml/Cvc(*)) 0 ml IV FLUSH 0600, 1800 [facility] PRN Reason: Protocol Last Admin: 06/20/17 06:25 Dose: 1 ml Lactobacillus Rhamnosus (Culturelle*) 1 cap PO BID [facility] Last Admin: 06/20/17 09:21 Dose: 1 cap Nystatin (Nystatin Cream*) 1 applic TOPICAL BID [facility] Last Admin: 06/20/17 14:39 Dose: Not Given Omeprazole (Prilosec Cap*) 40 mg PO DAILY@0730 [facility] Last Admin: 06/20/17 09:20 Dose: 40 mg Oxycodone HCl (Roxycodone Tab*) 10 mg PO Q8H PRN PRN Reason: PAIN Last Admin: 06/19/17 13:53 Dose: 10 mg Pharmacy Profile Note (Fentanyl Patch Check Q Shift) 1 note N/A 0700,1900 [facility] Last Admin: 06/20/17 06:57 Dose: 1 note Pregabalin (Lyrica Cap(*)) 150 mg PO TID [facility] Last Admin: 06/20/17 14:39 Dose: 150 mg Zinc Sulfate (Zinc-220 Cap*) 220 mg PO DAILY [facility] Last Admin: 06/20/17 09:20 Dose: 220 mg Vital Signs: Temp Pulse Resp BP Pulse Ox 98.8 F 76 16 161/66 97 06/20/17 10:05 06/20/17 10:05 06/20/17 14:40 06/20/17 10:05 06/20/17 10:05 Oxygen Devices in Use Now: None Appearance: Well appearing in NAD Respiratory: Symmetrical Chest Expansion and Respiratory Effort, Clear to Auscultation Cardiovascular: NL Sounds; No Murmurs; No JVD, RRR Abdominal: NL Sounds; No Tenderness; No Distention Extremities: No Edema, - Skin: - - flap not examined Neurological: - - flaccid lower extremities Result Diagrams: 06/18/17 05:17 06/18/17 05:17 Assess/Plan/Problems-Billing . Assessment: 71 yo man with paraplegia s/p plastic surgery for Stage IV sacral wound and acute osteomyelitis as well as chronic pain. - Patient Problems (1) S/P flap graft Comment: - 05/02/2017 at [facility] over large sacral defect Continue Clinitron bed, wound care, T&P. Last teleconference with his plastic surgeon 06/12/17, follow up in 3 weeks Continue fentanyl patch, PRN oxycodone, APAP Small open area being treated with Medihoney and gauze (2) Acute osteomyelitis of sacrum Comment: s/p debridement at time of flap creation at [facility] Completed antibiotics 06/13 (3) Paraplegia Comment: Secondary to ependymoma PT / OT as allowed by plastics (4) Chronic indwelling Fischer catheter Comment: Secondary to neurogenic bladder (5) DVT prophylaxis Comment: Lovenox, SCDs (6) Full code status Status and Disposition: Swing. PT/OT. Next family meeting scheduled for 06/22
[2017-06-20] MEDS: oxyCODONE TAB* 5 MG TAB PO PRN (17:30)
[2017-06-20] MEDS: Enoxaparin(*) 40 MG/0.4 ML SYR SUBCUT SCH (17:30)
[2017-06-21] MEDS: fentaNYL Patch Check Q Shift 1 NOTE SCH ×2 (07:11→19:02)
[2017-06-21] MEDS: Omeprazole CAP* 20 MG PO SCH (09:00)
[2017-06-21] MEDS: Lactobacillus Acidophilu (GG)* 1 CAP CAP PO SCH ×2 (09:00→20:45)
[2017-06-21] MEDS: Cholecalciferol TAB* 1000 UNITS PO SCH (09:00)
[2017-06-21] MEDS: Furosemide TAB* 40 MG PO SCH ×2 (09:01→20:45)
[2017-06-21] MEDS: Folic Acid TAB* 1 MG PO SCH (09:01)
[2017-06-21] MEDS: Cyanocobalamin TAB* 500 MCG PO SCH (09:01)
[2017-06-21] MEDS: Pregabalin CAP(*) 50 MG PO SCH ×3 (09:01→20:45)
[2017-06-21] MEDS: Aspirin EC Low Dose* 81 MG TAB.EC PO SCH (09:01)
[2017-06-21] MEDS: Ascorbic Acid TAB* 500 MG PO SCH (09:01)
[2017-06-21] MEDS: Zinc Sulfate CAP* 220 MG PO SCH (09:13)
[2017-06-21] MEDS: Ferrous Gluconate TAB* 324 MG TAB PO SCH (09:14)
[2017-06-21] MEDS: Clobetasol 0.05% OINT* 30 GM TUBE TOPICAL SCH ×2 (12:21→21:01)
[2017-06-21] MEDS: Nystatin CREAM* 15 GM TUBE TOPICAL SCH ×2 (12:22→21:01)
[2017-06-21] MEDS: oxyCODONE TAB* 5 MG TAB PO PRN ×2 (13:59→22:09)
[2017-06-21] MEDS: Enoxaparin(*) 40 MG/0.4 ML SYR SUBCUT SCH (16:53)
[2017-06-22] MEDS: fentaNYL Patch Check Q Shift 1 NOTE SCH ×2 (07:05→19:11)
[2017-06-22] MEDS: Clobetasol 0.05% OINT* 30 GM TUBE TOPICAL SCH ×2 (07:27→23:42)
[2017-06-22] MEDS: Cyanocobalamin TAB* 500 MCG PO SCH (08:47)
[2017-06-22] MEDS: Aspirin EC Low Dose* 81 MG TAB.EC PO SCH (08:47)
[2017-06-22] MEDS: Pregabalin CAP(*) 50 MG PO SCH ×3 (08:47→23:33)
[2017-06-22] MEDS: Cholecalciferol TAB* 1000 UNITS PO SCH (08:48)
[2017-06-22] MEDS: Furosemide TAB* 40 MG PO SCH ×2 (08:48→23:33)
[2017-06-22] MEDS: Folic Acid TAB* 1 MG PO SCH (08:48)
[2017-06-22] MEDS: Ascorbic Acid TAB* 500 MG PO SCH (08:48)
[2017-06-22] MEDS: Ferrous Gluconate TAB* 324 MG TAB PO SCH (08:48)
[2017-06-22] MEDS: Omeprazole CAP* 20 MG PO SCH (08:48)
[2017-06-22] MEDS: Nystatin CREAM* 15 GM TUBE TOPICAL SCH ×2 (08:50→23:39)
[2017-06-22] MEDS: Zinc Sulfate CAP* 220 MG PO SCH (08:52)
[2017-06-22] MEDS: oxyCODONE TAB* 5 MG TAB PO PRN (08:52)
[2017-06-22] MEDS: Lactobacillus Acidophilu (GG)* 1 CAP CAP PO SCH ×2 (08:52→23:34)
[2017-06-22] MEDS: Enoxaparin(*) 40 MG/0.4 ML SYR SUBCUT SCH (17:25)
[2017-06-22] MEDS: fentaNYL PATCH 75 MCG/HR* 75 MCG TRANSDERM SCH (17:26)
[2017-06-23] MEDS: fentaNYL Patch Check Q Shift 1 NOTE SCH ×2 (06:44→18:57)
[2017-06-23] MEDS: Ferrous Gluconate TAB* 324 MG TAB PO SCH (08:34)
[2017-06-23] MEDS: Omeprazole CAP* 20 MG PO SCH (08:34)
[2017-06-23] MEDS: Pregabalin CAP(*) 50 MG PO SCH ×3 (08:34→21:22)
[2017-06-23] MEDS: Cholecalciferol TAB* 1000 UNITS PO SCH (08:34)
[2017-06-23] MEDS: Lactobacillus Acidophilu (GG)* 1 CAP CAP PO SCH ×2 (08:34→21:22)
[2017-06-23] MEDS: Zinc Sulfate CAP* 220 MG PO SCH (08:34)
[2017-06-23] MEDS: Aspirin EC Low Dose* 81 MG TAB.EC PO SCH (08:34)
[2017-06-23] MEDS: Cyanocobalamin TAB* 500 MCG PO SCH (08:34)
[2017-06-23] MEDS: Ascorbic Acid TAB* 500 MG PO SCH (08:35)
[2017-06-23] MEDS: Folic Acid TAB* 1 MG PO SCH (08:35)
[2017-06-23] MEDS: Furosemide TAB* 40 MG PO SCH ×2 (08:35→21:22)
[2017-06-23] MEDS: Clobetasol 0.05% OINT* 30 GM TUBE TOPICAL SCH ×2 (08:41→21:21)
[2017-06-23] MEDS: Nystatin CREAM* 15 GM TUBE TOPICAL SCH ×2 (08:41→21:21)
[2017-06-23] MEDS: oxyCODONE TAB* 5 MG TAB PO PRN (15:32)
[2017-06-23] MEDS: Enoxaparin(*) 40 MG/0.4 ML SYR SUBCUT SCH (17:09)
[2017-06-24] MEDS: fentaNYL Patch Check Q Shift 1 NOTE SCH ×2 (07:07→19:04)
[2017-06-24] MEDS: Nystatin CREAM* 15 GM TUBE TOPICAL SCH ×2 (09:47→20:48)
[2017-06-24] MEDS: Lactobacillus Acidophilu (GG)* 1 CAP CAP PO SCH ×2 (09:57→20:57)
[2017-06-24] MEDS: Pregabalin CAP(*) 50 MG PO SCH ×3 (09:57→20:58)
[2017-06-24] MEDS: Zinc Sulfate CAP* 220 MG PO SCH (09:57)
[2017-06-24] MEDS: Furosemide TAB* 40 MG PO SCH ×2 (09:57→20:58)
[2017-06-24] MEDS: Cyanocobalamin TAB* 500 MCG PO SCH (09:57)
[2017-06-24] MEDS: Ascorbic Acid TAB* 500 MG PO SCH (09:58)
[2017-06-24] MEDS: Omeprazole CAP* 20 MG PO SCH (09:58)
[2017-06-24] MEDS: Ferrous Gluconate TAB* 324 MG TAB PO SCH (09:58)
[2017-06-24] MEDS: Aspirin EC Low Dose* 81 MG TAB.EC PO SCH (09:58)
[2017-06-24] MEDS: Cholecalciferol TAB* 1000 UNITS PO SCH (09:58)
[2017-06-24] MEDS: Clobetasol 0.05% OINT* 30 GM TUBE TOPICAL SCH ×2 (09:58→20:48)
[2017-06-24] MEDS: Folic Acid TAB* 1 MG PO SCH (09:58)
[2017-06-24] MEDS: Enoxaparin(*) 40 MG/0.4 ML SYR SUBCUT SCH (17:54)
[2017-06-24] MEDS: oxyCODONE TAB* 5 MG TAB PO PRN ×2 (17:55→23:49)
[2017-06-25 05:58] LABS: Hematocrit 39 % (42-52); Hemoglobin 13.1 g/dl (14.0-18.0); Mean Platelet Volume 8 um3 (7.4-10.4); Platelet Count 200 10^3/ul (150-450)
[2017-06-25 06:20] LABS: EGFR Non-African American 62.1 (>60)
[2017-06-25] MEDS: fentaNYL Patch Check Q Shift 1 NOTE SCH ×2 (07:15→18:41)
[2017-06-25] MEDS: Omeprazole CAP* 20 MG PO SCH (07:50)
[2017-06-25] MEDS: oxyCODONE TAB* 5 MG TAB PO PRN ×2 (07:51→16:50)
[2017-06-25] MEDS: Clobetasol 0.05% OINT* 30 GM TUBE TOPICAL SCH (09:18)
[2017-06-25] MEDS: Furosemide TAB* 40 MG PO SCH ×2 (09:28→20:29)
[2017-06-25] MEDS: Aspirin EC Low Dose* 81 MG TAB.EC PO SCH (09:28)
[2017-06-25] MEDS: Ascorbic Acid TAB* 500 MG PO SCH (09:28)
[2017-06-25] MEDS: Cyanocobalamin TAB* 500 MCG PO SCH (09:28)
[2017-06-25] MEDS: Zinc Sulfate CAP* 220 MG PO SCH (09:28)
[2017-06-25] MEDS: Cholecalciferol TAB* 1000 UNITS PO SCH (09:28)
[2017-06-25] MEDS: Lactobacillus Acidophilu (GG)* 1 CAP CAP PO SCH ×2 (09:28→20:28)
[2017-06-25] MEDS: Folic Acid TAB* 1 MG PO SCH (09:29)
[2017-06-25] MEDS: Pregabalin CAP(*) 50 MG PO SCH ×3 (09:29→20:29)
[2017-06-25] MEDS: Ferrous Gluconate TAB* 324 MG TAB PO SCH (09:29)
[2017-06-25] MEDS: Nystatin CREAM* 15 GM TUBE TOPICAL SCH ×2 (09:33→20:39)
--- NOTE | 2017-06-25 12:26 | PN ---
Subjective Date of Service: 06/25/17 Interval History: Mr. Merino denies complaint today. He does report continued leakage of stool throughout the day. His asks that his roxycodone dose be adjusted so that it can be better used with transfers in and out of bed. He denies chest pain, SOB, nausea, or abdominal pain. Family History: Unchanged from Admission Social History: Unchanged from Admission Past Medical History: Unchanged from Admission Objective Active Medications: Acetaminophen (Tylenol Tab*) 650 mg PO Q6H PRN Ascorbic Acid (Vitamin C Tab*) 500 mg PO DAILY [facility] Aspirin (Aspirin Ec Low Dose*) 81 mg PO DAILY [facility] Calcium Polycarbophil (Fibercon Tab*) 625 mg PO BID [facility] Cholecalciferol (Vitamin D Tab*) 5,000 units PO DAILY [facility] Cyanocobalamin (Vitamin B12 Tab*) 1,000 mcg PO DAILY [facility] Diphenoxylate HCl/Atropine (Lomotil Tab*) 1 tab PO QID PRN Enoxaparin Sodium (Lovenox(*)) 40 mg SUBCUT Q24H [facility] Fentanyl (Duragesic Patch 75 Mcg/Hr*) 75 mcg TRANSDERM Q72H [facility] Ferrous Gluconate (Fergon Tab*) 324 mg PO DAILY [facility] Folic Acid (Folvite Tab*) 0.5 mg PO DAILY [facility] Furosemide (Lasix Tab*) 40 mg PO BID [facility] Heparin Sodium (Porcine) (Heparin Flush Picc/Ml/Cvc(*)) 0 ml IV FLUSH 0600, 1800 [facility] Lactobacillus Rhamnosus (Culturelle*) 1 cap PO BID [facility] Nystatin (Nystatin Cream*) 1 applic TOPICAL BID [facility] Omeprazole (Prilosec Cap*) 40 mg PO DAILY@0730 [facility] Oxycodone HCl (Roxycodone Tab*) 10 mg PO Q8H PRN Pharmacy Profile Note (Fentanyl Patch Check Q Shift) 1 note N/A 0700,1900 [facility] Pregabalin (Lyrica Cap(*)) 150 mg PO TID [facility] Zinc Sulfate (Zinc-220 Cap*) 220 mg PO DAILY [facility] Vital Signs: Temp Pulse Resp BP Pulse Ox 97.5 F 68 18 163/67 99 06/25/17 08:09 06/25/17 08:09 06/25/17 10:25 06/25/17 08:09 06/25/17 08:09 Oxygen Devices in Use Now: None Appearance: Patient lying in bed in NAD Eyes: No Scleral Icterus Ears/Nose/Mouth/Throat: Mucous Membranes Moist Neck: Trachea Midline Respiratory: Symmetrical Chest Expansion and Respiratory Effort, Clear to Auscultation Cardiovascular: NL Sounds; No Murmurs; No JVD, No Edema Abdominal: NL Sounds; No Tenderness; No Distention Lymphatic: No Cervical Adenopathy Extremities: No Edema Skin: No Rash or Ulcers, - - Small tunneling wound to gluteal cleft, chronic and present since graft was placed Neurological: Alert and Oriented x 3 Nutrition: Taking PO's Result Diagrams: 06/25/17 05:37 06/25/17 05:37 Assess/Plan/Problems-Billing . Assessment: Ms Merino is 71 yo man with paraplegia s/p plastic surgery for Stage IV sacral wound and acute osteomyelitis as well as chronic pain. - Patient Problems (1) S/P flap graft Comment: - 05/02/2017 at [facility] over large sacral defect - Continue Clinitron bed, wound care, T&P. - Last teleconference with his plastic surgeon 06/12/17, follow up in 3 weeks - Continue fentanyl patch, PRN oxycodone, APAP - Small open area being treated with Medihoney and gauze (2) Acute osteomyelitis of sacrum Comment: - s/p debridement at time of flap creation at [facility] - Completed antibiotics 06/13 (3) Paraplegia Comment: - PT / OT as allowed by plastics - Secondary to ependymoma (dx in patient's 20s), s/p multiple surgeries. With concurrent chronic back pain and inability to ambulate - Back anatomy puts patient at much higher risk for pressure ulcer formation, as does high opiate requirements and fragility with easily acquired infections ( pneumonia / urinary tract infections). UTI's in particular are a high risk given his neurogenic bladder and indwelling arriaga catheter. (4) Chronic back pain Comment: - Secondary to ependymoma. - Continue pregabalin, acetaminophen, oxycodone liquid 5mg q4h, and Fentanyl patch at 75mcg. (5) Neurogenic bladder Comment: - With chronic indwelling urinary catheter (6) Neurogenic bowel Comment: - Loose bowel movements with repositioning. Patient reports continued leakage of soft stool thoughout the day. Unable to feel or control BMs. - Added fibercon BID. Lomotil available prn. (7) Anemia Comment: - Resolved. - Suspect anemia of chronic disease and SILVIA. - Continue iron supplementation, B12, folate. (8) CAD (coronary artery disease) Comment: - Asymptomatic - Continue ASA. (9) CKD (chronic kidney disease), stage III Comment: - Creatinine baseline, no acute exacerbation - Avoid nephrotoxic medications (10) HTN (hypertension) Comment: - SBP 120-160's. - Continue lasix. (11) MATY (obstructive sleep apnea) Comment: - Does not wear bipap, states he cannot get a good seal on mask. (12) DVT prophylaxis Comment: - Lovenox, SCDs (13) Full code status Comment: Status and Disposition: Swing. PT/OT.
[2017-06-25] MEDS: Enoxaparin(*) 40 MG/0.4 ML SYR SUBCUT SCH (16:51)
[2017-06-25] MEDS: fentaNYL PATCH 75 MCG/HR* 75 MCG TRANSDERM SCH (16:51)
[2017-06-25] MEDS: Calcium Polycarbophil TAB* 625 MG PO SCH (20:28)
[2017-06-26] MEDS: fentaNYL Patch Check Q Shift 1 NOTE SCH ×2 (07:13→18:34)
[2017-06-26] MEDS: Omeprazole CAP* 20 MG PO SCH (07:38)
[2017-06-26] MEDS: oxyCODONE TAB* 5 MG TAB PO PRN ×4 (07:39→21:25)
[2017-06-26] MEDS: Ferrous Gluconate TAB* 324 MG TAB PO SCH (10:09)
[2017-06-26] MEDS: Zinc Sulfate CAP* 220 MG PO SCH (10:09)
[2017-06-26] MEDS: Aspirin EC Low Dose* 81 MG TAB.EC PO SCH (10:09)
[2017-06-26] MEDS: Lactobacillus Acidophilu (GG)* 1 CAP CAP PO SCH ×2 (10:09→21:14)
[2017-06-26] MEDS: Calcium Polycarbophil TAB* 625 MG PO SCH ×2 (10:09→21:14)
[2017-06-26] MEDS: Cholecalciferol TAB* 1000 UNITS PO SCH (10:10)
[2017-06-26] MEDS: Cyanocobalamin TAB* 500 MCG PO SCH (10:10)
[2017-06-26] MEDS: Folic Acid TAB* 1 MG PO SCH (10:10)
[2017-06-26] MEDS: Pregabalin CAP(*) 50 MG PO SCH ×3 (10:11→21:14)
[2017-06-26] MEDS: Furosemide TAB* 40 MG PO SCH ×2 (10:11→21:14)
[2017-06-26] MEDS: Ascorbic Acid TAB* 500 MG PO SCH (10:11)
[2017-06-26] MEDS: Nystatin CREAM* 15 GM TUBE TOPICAL SCH ×2 (10:13→21:43)
[2017-06-26] MEDS: Enoxaparin(*) 40 MG/0.4 ML SYR SUBCUT SCH (17:23)
[2017-06-27] MEDS: fentaNYL Patch Check Q Shift 1 NOTE SCH ×2 (06:59→19:00)
[2017-06-27] MEDS: Nystatin CREAM* 15 GM TUBE TOPICAL SCH ×2 (07:53→20:43)
[2017-06-27] MEDS: Calcium Polycarbophil TAB* 625 MG PO SCH ×2 (08:17→20:42)
[2017-06-27] MEDS: Ascorbic Acid TAB* 500 MG PO SCH (08:17)
[2017-06-27] MEDS: Ferrous Gluconate TAB* 324 MG TAB PO SCH (08:17)
[2017-06-27] MEDS: Cholecalciferol TAB* 1000 UNITS PO SCH (08:17)
[2017-06-27] MEDS: Omeprazole CAP* 20 MG PO SCH (08:17)
[2017-06-27] MEDS: Aspirin EC Low Dose* 81 MG TAB.EC PO SCH (08:17)
[2017-06-27] MEDS: Zinc Sulfate CAP* 220 MG PO SCH (08:17)
[2017-06-27] MEDS: Lactobacillus Acidophilu (GG)* 1 CAP CAP PO SCH ×2 (08:17→20:42)
[2017-06-27] MEDS: Pregabalin CAP(*) 50 MG PO SCH ×3 (08:17→20:42)
[2017-06-27] MEDS: Cyanocobalamin TAB* 500 MCG PO SCH (08:18)
[2017-06-27] MEDS: oxyCODONE TAB* 5 MG TAB PO PRN ×2 (08:18→16:38)
[2017-06-27] MEDS ORDERED: Furosemide TAB* 20 MG ONE (08:35)
[2017-06-27] MEDS: Folic Acid TAB* 1 MG PO SCH (08:37)
[2017-06-27] MEDS: Furosemide TAB* 40 MG PO SCH ×2 (08:45→20:42)
[2017-06-27] MEDS: Enoxaparin(*) 40 MG/0.4 ML SYR SUBCUT SCH (16:38)
[2017-06-28] MEDS: oxyCODONE TAB* 5 MG TAB PO PRN ×3 (06:45→17:19)
[2017-06-28] MEDS: fentaNYL Patch Check Q Shift 1 NOTE SCH ×2 (06:46→18:37)
[2017-06-28] MEDS: Furosemide TAB* 40 MG PO SCH ×2 (08:03→21:05)
[2017-06-28] MEDS: Zinc Sulfate CAP* 220 MG PO SCH (08:03)
[2017-06-28] MEDS: Calcium Polycarbophil TAB* 625 MG PO SCH ×2 (08:03→21:06)
[2017-06-28] MEDS: Ascorbic Acid TAB* 500 MG PO SCH (08:03)
[2017-06-28] MEDS: Lactobacillus Acidophilu (GG)* 1 CAP CAP PO SCH ×2 (08:03→21:05)
[2017-06-28] MEDS: Omeprazole CAP* 20 MG PO SCH (08:03)
[2017-06-28] MEDS: Cholecalciferol TAB* 1000 UNITS PO SCH (08:03)
[2017-06-28] MEDS: Aspirin EC Low Dose* 81 MG TAB.EC PO SCH (08:04)
[2017-06-28] MEDS: Pregabalin CAP(*) 50 MG PO SCH ×3 (08:04→21:06)
[2017-06-28] MEDS: Ferrous Gluconate TAB* 324 MG TAB PO SCH (08:04)
[2017-06-28] MEDS: Folic Acid TAB* 1 MG PO SCH (08:05)
[2017-06-28] MEDS: Cyanocobalamin TAB* 500 MCG PO SCH (08:05)
[2017-06-28] MEDS: Nystatin CREAM* 15 GM TUBE TOPICAL SCH ×2 (10:52→21:07)
[2017-06-28] MEDS ORDERED: Ondansetron INJ* 2 MG/ML VIAL ONE (13:37)
[2017-06-28] MEDS: Ondansetron INJ* 2 MG/ML VIAL IV PRN ×2 (13:45→20:41)
--- NOTE | 2017-06-28 15:26 | PN ---
Subjective Date of Service: 06/28/17 Interval History: Patient reports feeling nauseated today. Symptoms started before breakfast, he ate very little. No vomiting or abd pain. He has chronic diarrhea. No cough or SOB. Family History: Unchanged from Admission Social History: Unchanged from Admission Past Medical History: Unchanged from Admission Objective Active Medications: Acetaminophen (Tylenol Tab*) 650 mg PO Q6H PRN PRN Reason: FEVER/PAIN Last Admin: 06/18/17 20:20 Dose: 650 mg Ascorbic Acid (Vitamin C Tab*) 500 mg PO DAILY [facility] Last Admin: 06/28/17 08:03 Dose: 500 mg Aspirin (Aspirin Ec Low Dose*) 81 mg PO DAILY [facility] Last Admin: 06/28/17 08:04 Dose: 81 mg Calcium Polycarbophil (Fibercon Tab*) 625 mg PO BID [facility] Last Admin: 06/28/17 08:03 Dose: 625 mg Cholecalciferol (Vitamin D Tab*) 5,000 units PO DAILY [facility] Last Admin: 06/28/17 08:03 Dose: 5,000 units Cyanocobalamin (Vitamin B12 Tab*) 1,000 mcg PO DAILY [facility] Last Admin: 06/28/17 08:05 Dose: 1,000 mcg Diphenoxylate HCl/Atropine (Lomotil Tab*) 1 tab PO QID PRN PRN Reason: DIARRHEA Last Admin: 06/19/17 13:52 Dose: 1 tab Enoxaparin Sodium (Lovenox(*)) 40 mg SUBCUT Q24H [facility] Last Admin: 06/27/17 16:38 Dose: 40 mg Ferrous Gluconate (Fergon Tab*) 324 mg PO DAILY [facility] Last Admin: 06/28/17 08:04 Dose: 324 mg Folic Acid (Folvite Tab*) 0.5 mg PO DAILY [facility] Last Admin: 06/28/17 08:05 Dose: 0.5 mg Furosemide (Lasix Tab*) 40 mg PO BID [facility] Last Admin: 06/28/17 08:03 Dose: 40 mg Heparin Sodium (Porcine) (Heparin Flush Picc/Ml/Cvc(*)) 0 ml IV FLUSH 0600, 1800 [facility] PRN Reason: Protocol Last Admin: 06/28/17 06:04 Dose: 1 ml Lactobacillus Rhamnosus (Culturelle*) 1 cap PO BID [facility] Last Admin: 06/28/17 08:03 Dose: 1 cap Nystatin (Nystatin Cream*) 1 applic TOPICAL BID [facility] Last Admin: 06/28/17 10:52 Dose: Not Given Omeprazole (Prilosec Cap*) 40 mg PO DAILY@0730 [facility] Last Admin: 06/28/17 08:03 Dose: 40 mg Ondansetron HCl (Zofran Inj*) 4 mg IV Q4H PRN PRN Reason: NAUSEA Last Admin: 06/28/17 13:45 Dose: 4 mg Oxycodone HCl (Roxycodone Tab*) 5 mg PO Q4H PRN PRN Reason: PAIN Last Admin: 06/28/17 12:08 Dose: 5 mg Pharmacy Profile Note (Fentanyl Patch Check Q Shift) 1 note N/A 0700,1900 [facility] Last Admin: 06/28/17 06:46 Dose: 1 note Pregabalin (Lyrica Cap(*)) 150 mg PO TID [facility] Last Admin: 06/28/17 13:45 Dose: 150 mg Zinc Sulfate (Zinc-220 Cap*) 220 mg PO DAILY [facility] Last Admin: 06/28/17 08:03 Dose: 220 mg Vital Signs: Temp Pulse Resp BP Pulse Ox 97.8 F 77 16 175/80 96 06/28/17 08:07 06/28/17 08:07 06/28/17 14:30 06/28/17 08:07 06/28/17 08:07 Oxygen Devices in Use Now: None Appearance: Chronically ill and slightly fatigued appearing 71 yo male in NAD Respiratory: Symmetrical Chest Expansion and Respiratory Effort, Clear to Auscultation Cardiovascular: NL Sounds; No Murmurs; No JVD, RRR Abdominal: NL Sounds; No Tenderness; No Distention Extremities: No Edema Neurological: Alert and Oriented x 3 Result Diagrams: 06/25/17 05:37 06/25/17 05:37 Assess/Plan/Problems-Billing . Assessment: Ms Merino is 71 yo man with paraplegia s/p plastic surgery for Stage IV sacral wound and acute osteomyelitis as well as chronic pain. - Patient Problems (1) Nausea Comment: Unsure of etiology, normal exam Plan to repeat labs tomorrow Treat with supportive measures at this time (2) S/P flap graft Comment: - 05/02/2017 at [facility] over large sacral defect - Continue Clinitron bed, wound care, T&P. - Last teleconference with his plastic surgeon 06/12/17, follow up tomorrow () - Continue fentanyl patch, PRN oxycodone, APAP - Small open area being treated with Medihoney and gauze which shows signs of healing (3) Acute osteomyelitis of sacrum Comment: - s/p debridement at time of flap creation at [facility] - Completed antibiotics 06/13 (4) Paraplegia Comment: - PT / OT as allowed by plastics - Secondary to ependymoma (dx in patient's 20s), s/p multiple surgeries. With concurrent chronic back pain and inability to ambulate - Back anatomy puts patient at much higher risk for pressure ulcer formation, as does high opiate requirements and fragility with easily acquired infections ( pneumonia / urinary tract infections). UTI's in particular are a high risk given his neurogenic bladder and indwelling arriaga catheter. (5) Chronic indwelling Arriaga catheter Comment: Secondary to neurogenic bladder (6) DVT prophylaxis Comment: - Lovenox, SCDs (7) Full code status Comment: Status and Disposition: Swing. PT/OT.
[2017-06-28] MEDS: Enoxaparin(*) 40 MG/0.4 ML SYR SUBCUT SCH (17:20)
[2017-06-28] MEDS: Diphenoxylat/Atrop 2.5-0.025M* 1 TAB PO PRN (21:06)
[2017-06-29] MEDS ORDERED: fentaNYL PATCH 75 MCG/HR* 75 MCG TRANSDERM SCH (02:00)
[2017-06-29 06:18] LABS: ABS Basophils 0.1 10^3/ul (0-0.2); ABS Eosinophils 0 10^3/ul (0-0.6); ABS Lymphocytes 1.6 10^3/ul (1.0-4.8); ABS Neutrophils 3.8 10^3/ul (1.5-7.7); ABS Nucleated RBC 0.01 10^3/ul; Eosinophil % 0.6 % (0-6); Hematocrit 41 % (42-52); Hemoglobin 13.9 g/dl (14.0-18.0); Lymphocyte % 24.3 % (25-47); Mean Corpuscular HGB Conc 34 g/dl (31-36); Mean Corpuscular Hemoglobin 28 pg (27-31); Mean Corpuscular Volume 82 fL (80-94); Mean Platelet Volume 8 um3 (7.4-10.4); Nucleated Red Blood Cells % 0.2; Platelet Count 197 10^3/ul (150-450); Red Blood Count 4.96 10^6/ul (4.0-5.4); Red Cell Distribution Width 16 % (10.5-15); White Blood Count 6.5 10^3/ul (3.5-10.8)
[2017-06-29] MEDS: fentaNYL Patch Check Q Shift 1 NOTE SCH ×2 (06:34→19:20)
[2017-06-29 06:51] LABS: EGFR Non-African American 67.4 (>60)
[2017-06-29] MEDS: Omeprazole CAP* 20 MG PO SCH (07:14)
[2017-06-29] MEDS: oxyCODONE TAB* 5 MG TAB PO PRN ×3 (07:14→16:43)
[2017-06-29] MEDS: Zinc Sulfate CAP* 220 MG PO SCH (09:15)
[2017-06-29] MEDS: Calcium Polycarbophil TAB* 625 MG PO SCH ×2 (09:16→21:10)
[2017-06-29] MEDS: Folic Acid TAB* 1 MG PO SCH (09:16)
[2017-06-29] MEDS: Ferrous Gluconate TAB* 324 MG TAB PO SCH (09:16)
[2017-06-29] MEDS: Lactobacillus Acidophilu (GG)* 1 CAP CAP PO SCH ×2 (09:17→21:09)
[2017-06-29] MEDS: Ascorbic Acid TAB* 500 MG PO SCH (09:17)
[2017-06-29] MEDS: Furosemide TAB* 40 MG PO SCH ×2 (09:18→21:10)
[2017-06-29] MEDS: Aspirin EC Low Dose* 81 MG TAB.EC PO SCH (09:18)
[2017-06-29] MEDS: Cyanocobalamin TAB* 500 MCG PO SCH (09:18)
[2017-06-29] MEDS: Potassium Chlor TAB* 20 MEQ TAB.ER PO SCH ×3 (09:18→21:09)
[2017-06-29] MEDS: Cholecalciferol TAB* 1000 UNITS PO SCH (09:19)
[2017-06-29] MEDS: Pregabalin CAP(*) 50 MG PO SCH ×3 (09:20→21:10)
[2017-06-29] MEDS: Diphenoxylat/Atrop 2.5-0.025M* 1 TAB PO PRN (09:25)
[2017-06-29] MEDS: Nystatin CREAM* 15 GM TUBE TOPICAL SCH ×2 (11:53→21:13)
--- NOTE | 2017-06-29 16:31 | PN ---
Subjective Date of Service: 06/29/17 Interval History: Patient reports improvement in nausea today. Had a follow up telemedicine conference with Dr Blankenship today and discussed the following points: 1. He can be up sitting for max 2h three times daily 2. It is appropriate to use a slide board to get in and out of the shower ( maybe use a towel to reduce friction) 3. Consider colostomy in the future to prevent breakdown 4. Plan for dc by the end of the year 5. Ok to use regular hospital bed, no further need for Clinitron Family History: Unchanged from Admission Social History: Unchanged from Admission Past Medical History: Unchanged from Admission Objective Active Medications: Acetaminophen (Tylenol Tab*) 650 mg PO Q6H PRN PRN Reason: FEVER/PAIN Last Admin: 06/18/17 20:20 Dose: 650 mg Ascorbic Acid (Vitamin C Tab*) 500 mg PO DAILY [facility] Last Admin: 06/29/17 09:17 Dose: 500 mg Aspirin (Aspirin Ec Low Dose*) 81 mg PO DAILY [facility] Last Admin: 06/29/17 09:18 Dose: 81 mg Calcium Polycarbophil (Fibercon Tab*) 625 mg PO BID [facility] Last Admin: 06/29/17 09:16 Dose: 625 mg Cholecalciferol (Vitamin D Tab*) 5,000 units PO DAILY [facility] Last Admin: 06/29/17 09:19 Dose: 5,000 units Cyanocobalamin (Vitamin B12 Tab*) 1,000 mcg PO DAILY [facility] Last Admin: 06/29/17 09:18 Dose: 1,000 mcg Diphenoxylate HCl/Atropine (Lomotil Tab*) 1 tab PO QID PRN PRN Reason: DIARRHEA Last Admin: 06/29/17 09:25 Dose: 1 tab Enoxaparin Sodium (Lovenox(*)) 40 mg SUBCUT Q24H [facility] Last Admin: 06/28/17 17:20 Dose: 40 mg Fentanyl (Duragesic Patch 75 Mcg/Hr*) 75 mcg TRANSDERM Q72H [facility] Last Admin: 06/29/17 02:24 Dose: 75 mcg Ferrous Gluconate (Fergon Tab*) 324 mg PO DAILY [facility] Last Admin: 06/29/17 09:16 Dose: 324 mg Folic Acid (Folvite Tab*) 0.5 mg PO DAILY [facility] Last Admin: 06/29/17 09:16 Dose: 0.5 mg Furosemide (Lasix Tab*) 40 mg PO BID [facility] Last Admin: 06/29/17 09:18 Dose: 40 mg Heparin Sodium (Porcine) (Heparin Flush Picc/Ml/Cvc(*)) 0 ml IV FLUSH 0600, 1800 [facility] PRN Reason: Protocol Last Admin: 06/29/17 05:55 Dose: 1 ml Lactobacillus Rhamnosus (Culturelle*) 1 cap PO BID [facility] Last Admin: 06/29/17 09:17 Dose: 1 cap Nystatin (Nystatin Cream*) 1 applic TOPICAL BID [facility] Last Admin: 06/29/17 11:53 Dose: 1 applic Omeprazole (Prilosec Cap*) 40 mg PO DAILY@0730 [facility] Last Admin: 06/29/17 07:14 Dose: 40 mg Ondansetron HCl (Zofran Inj*) 4 mg IV Q4H PRN PRN Reason: NAUSEA Last Admin: 06/28/17 20:41 Dose: 4 mg Oxycodone HCl (Roxycodone Tab*) 5 mg PO Q4H PRN PRN Reason: PAIN Last Admin: 06/29/17 11:49 Dose: 5 mg Pharmacy Profile Note (Fentanyl Patch Check Q Shift) 1 note N/A 0700,1900 [facility] Last Admin: 06/29/17 06:34 Dose: 1 note Potassium Chloride (Klor Con Er Tab*) 20 meq PO TID [facility] Stop: 06/29/17 21:01 Last Admin: 06/29/17 14:26 Dose: 20 meq Pregabalin (Lyrica Cap(*)) 150 mg PO TID [facility] Last Admin: 06/29/17 14:26 Dose: 150 mg Zinc Sulfate (Zinc-220 Cap*) 220 mg PO DAILY [facility] Last Admin: 06/29/17 09:15 Dose: 220 mg Vital Signs: Temp Pulse Resp BP Pulse Ox 97.4 F 103 18 154/78 92 06/28/17 20:36 06/28/17 20:36 06/29/17 14:26 06/28/17 20:36 06/28/17 20:36 Oxygen Devices in Use Now: None Appearance: Chronically ill appearing male in NAD. Accompanied by his . Respiratory: Symmetrical Chest Expansion and Respiratory Effort, Clear to Auscultation Cardiovascular: NL Sounds; No Murmurs; No JVD, RRR Abdominal: NL Sounds; No Tenderness; No Distention Extremities: No Edema Skin: - - healing gluteal flap, very small open area at the sacrum without drainage or surrounding erythema Neurological: Alert and Oriented x 3 Result Diagrams: 06/29/17 06:08 06/29/17 06:08 Assess/Plan/Problems-Billing . Assessment: Ms Merino is 71 yo man with paraplegia s/p plastic surgery for Stage IV sacral wound and acute osteomyelitis as well as chronic pain. - Patient Problems (1) S/P flap graft Comment: - 05/02/2017 at [facility] over large sacral defect - Follow up completed today with Dr Blankenship (plastic surgeon) - Continue fentanyl patch, PRN oxycodone, APAP - Small open area being treated with Medihoney and gauze which is nearly healed - up to chair max 2hrs, three times daily - plan for diverting colostomy perhaps first week of Jul, will discuss with general surgery - November d/c Clinitron bed and go to usual hospital bed (2) Acute osteomyelitis of sacrum Comment: - s/p debridement at time of flap creation at [facility] - Completed antibiotics 06/13 (3) Paraplegia Comment: - PT / OT, cont to work on increasing strength with transfers - Secondary to ependymoma (dx in patient's 20s), s/p multiple surgeries. With concurrent chronic back pain and inability to ambulate (4) Chronic diarrhea Comment: Likely functional Little to no improvement with fiber and prn Lomotil Start scheduled twice daily Lomotil Pending consult with Gen surg to discuss diverting colostomy (5) Chronic indwelling Fischer catheter Comment: Secondary to neurogenic bladder (6) DVT prophylaxis Comment: - Lovenox, SCDs (7) Full code status Comment: Status and Disposition: Swing. PT/OT. Plan for dc Jul 06 with pending consult with general surgery to discuss diverting colostomy
[2017-06-29] MEDS: Enoxaparin(*) 40 MG/0.4 ML SYR SUBCUT SCH (16:41)
[2017-06-29] MEDS: Diphenoxylat/Atrop 2.5-0.025M* 1 TAB PO SCH (21:08)
[2017-06-30] MEDS: fentaNYL Patch Check Q Shift 1 NOTE SCH ×2 (06:50→19:06)
[2017-06-30] MEDS: oxyCODONE TAB* 5 MG TAB PO PRN ×4 (08:04→21:29)
[2017-06-30] MEDS: Omeprazole CAP* 20 MG PO SCH (08:04)
[2017-06-30] MEDS: Pregabalin CAP(*) 50 MG PO SCH ×3 (10:24→21:28)
[2017-06-30] MEDS: Zinc Sulfate CAP* 220 MG PO SCH (10:24)
[2017-06-30] MEDS: Diphenoxylat/Atrop 2.5-0.025M* 1 TAB PO SCH ×2 (10:24→21:27)
[2017-06-30] MEDS: Calcium Polycarbophil TAB* 625 MG PO SCH ×2 (10:24→21:27)
[2017-06-30] MEDS: Furosemide TAB* 40 MG PO SCH ×2 (10:25→21:28)
[2017-06-30] MEDS: Cyanocobalamin TAB* 500 MCG PO SCH (10:25)
[2017-06-30] MEDS: Aspirin EC Low Dose* 81 MG TAB.EC PO SCH (10:25)
[2017-06-30] MEDS: Lactobacillus Acidophilu (GG)* 1 CAP CAP PO SCH ×2 (10:25→21:28)
[2017-06-30] MEDS: Ferrous Gluconate TAB* 324 MG TAB PO SCH (10:25)
[2017-06-30] MEDS: Folic Acid TAB* 1 MG PO SCH (10:25)
[2017-06-30] MEDS: Cholecalciferol TAB* 1000 UNITS PO SCH (10:26)
[2017-06-30] MEDS: Ascorbic Acid TAB* 500 MG PO SCH (10:26)
[2017-06-30] MEDS: Nystatin CREAM* 15 GM TUBE TOPICAL SCH ×2 (10:27→21:29)
[2017-06-30] MEDS: Enoxaparin(*) 40 MG/0.4 ML SYR SUBCUT SCH (16:45)
[2017-07-01] MEDS: fentaNYL Patch Check Q Shift 1 NOTE SCH ×2 (07:45→18:54)
[2017-07-01] MEDS: Omeprazole CAP* 20 MG PO SCH (07:52)
[2017-07-01] MEDS: Pregabalin CAP(*) 50 MG PO SCH ×3 (07:53→22:18)
[2017-07-01] MEDS: oxyCODONE TAB* 5 MG TAB PO PRN ×2 (07:53→17:21)
[2017-07-01] MEDS: Ferrous Gluconate TAB* 324 MG TAB PO SCH (09:43)
[2017-07-01] MEDS: Cyanocobalamin TAB* 500 MCG PO SCH (09:44)
[2017-07-01] MEDS: Lactobacillus Acidophilu (GG)* 1 CAP CAP PO SCH ×2 (09:44→22:19)
[2017-07-01] MEDS: Folic Acid TAB* 1 MG PO SCH (09:44)
[2017-07-01] MEDS: Aspirin EC Low Dose* 81 MG TAB.EC PO SCH (09:44)
[2017-07-01] MEDS: Zinc Sulfate CAP* 220 MG PO SCH (09:44)
[2017-07-01] MEDS: Diphenoxylat/Atrop 2.5-0.025M* 1 TAB PO SCH ×2 (09:44→22:19)
[2017-07-01] MEDS: Furosemide TAB* 40 MG PO SCH ×2 (09:45→22:19)
[2017-07-01] MEDS: Cholecalciferol TAB* 1000 UNITS PO SCH (09:45)
[2017-07-01] MEDS: Calcium Polycarbophil TAB* 625 MG PO SCH ×2 (09:45→22:18)
[2017-07-01] MEDS: Ascorbic Acid TAB* 500 MG PO SCH (09:45)
[2017-07-01] MEDS: Nystatin CREAM* 15 GM TUBE TOPICAL SCH ×2 (09:49→22:19)
[2017-07-01] MEDS: Enoxaparin(*) 40 MG/0.4 ML SYR SUBCUT SCH (17:22)
--- NOTE | 2017-07-01 22:16 | CONS ---
CC: Molly Griffiths MD; Jay Pacheco MD; Yassine Blankenship MD in [facility]; [facility] CONSULTATION REPORT: DATE OF CONSULT: 07/01/17 REASON FOR CONSULT: Colostomy surgery. HISTORY OF PRESENT ILLNESS: Obi Merino is a 71-year-old gentleman with a history of ependymoma of the lower spine status post multiple back surgeries in [place] for debulking. He has chronic lower back pain, paresthesias, and neuropathy in the lower extremities. He is wheelchair bound. He developed a sacral decubitus and then sacral osteomyelitis and sepsis over the past year. He has an ongoing problem with persistent diarrhea. He had been admitted multiple times in the past year and in April he was transferred to [facility] for muscular flap coverage of the decubitus ulcer by Dr. Yassine Blankenship, plastic surgeon. 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 Due to problems with fecal soilage, a surgical creation of colostomy has been requested. PAST MEDICAL HISTORY: Significant for sacral osteomyelitis, neurogenic bowel and bladder, obstructive sleep apnea, chronic renal failure, asthma, carotid artery stenosis, ependymoma, adenomatous polyps of colon, hypertension, lower back pain, hyperlipidemia, BPH. PAST SURGICAL HISTORY: Debridement of sacral wound and right and left gluteus rosa maria flap reconstruction on 05/02/17 at [facility]; 4 debulking surgeries for ependymoma between 1970 and 1990; open appendectomy for perforated appendicitis and subsequent reoperation for bladder injury in ; right carotid endarterectomy; tonsillectomy; colonoscopy in 1997, 2004, 2008, and 2013; upper endoscopy in 2014. MEDICATIONS: Currently: 1. Tylenol. 2. Vitamin C. 3. Aspirin. 4. FiberCon. 5. Vitamin D. 6. Vitamin B12. 7. Lomotil. 8. Lovenox. 9. Duragesic patch. 10. Fergon. 11. Folvite. 12. Lasix. 13. Culturelle. 14. Nystatin cream. 15. Prilosec. 16. Zofran. 17. Oxycodone. 18. Lyrica. 19. Zinc. ALLERGIES: ATORVASTATIN. SOCIAL HISTORY: He is . 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 He denies tobacco or alcohol use. FAMILY HISTORY: Father had Parkinson's. Mother is alive, age 99. REVIEW OF SYSTEMS: As reported above. GI: He had the colonoscopy in 2013 and was to have a followup colonoscopy 6 months ago, which has been deferred due to his other medical issues. PHYSICAL EXAMINATION: A 71-year-old gentleman lying in hospital bed, no acute distress. Vital Signs: His temperature is 97.4, pulse 70, respirations 16, blood pressure 149/67, O2 saturation 98% on room air. Abdomen: Obese with right lower quadrant scar. Bowel sounds present, soft, nontender. No palpable masses or hernias. LABORATORY DATA: On 06/29/17, WBCs are 6.5, hemoglobin 13.9, platelets are 197. Chemistries: Sodium 139, potassium 3.1, chloride 102, bicarb 28, BUN 41, creatinine 1.08, glucose 119, albumin 3.6. IMPRESSION: Obi Merino is a 71-year-old gentleman with a complex past medical and past surgical history who is recovering from muscular flap coverage of stage IV sacral decubitus ulcer complicated by osteomyelitis. Fecal soilage has been an ongoing problem for the patient and it does seem reasonable to consider creation of a colostomy to aide in his healing. PLAN/RECOMMENDATION: I discussed the plan for permanent colostomy with the patient and his who accompanied him. I explained the nature of the procedure, indications, risks, benefits, and alternatives. Prior to surgery, it would seem reasonable to complete the colonoscopy if possible and this would need to be discussed with Gastroenterology. Preoperative teaching with ostomy therapist will need to be arranged as well. Likely best surgical option would be an end colostomy based on the sigmoid/descending colon and possibly this could be done with laparoscopic techniques. At present, there is no urgent nature to the procedure and this will be arranged for the week following the new year pending completion of his colonoscopy. [id number]/[facility] #: [id number] VALERI
[2017-07-02] MEDS: fentaNYL PATCH 75 MCG/HR* 75 MCG TRANSDERM SCH (06:24)
[2017-07-02 06:47] LABS: Hematocrit 40 % (42-52); Hemoglobin 13.6 g/dl (14.0-18.0); Mean Platelet Volume 9 um3 (7.4-10.4); Platelet Count 198 10^3/ul (150-450)
[2017-07-02] MEDS: fentaNYL Patch Check Q Shift 1 NOTE SCH ×3 (07:19→18:40)
[2017-07-02] MEDS: Pregabalin CAP(*) 50 MG PO SCH ×3 (08:05→21:06)
[2017-07-02] MEDS: Omeprazole CAP* 20 MG PO SCH (08:05)
[2017-07-02] MEDS: oxyCODONE TAB* 5 MG TAB PO PRN ×4 (08:05→21:07)
[2017-07-02] MEDS: Aspirin EC Low Dose* 81 MG TAB.EC PO SCH (09:34)
[2017-07-02] MEDS: Zinc Sulfate CAP* 220 MG PO SCH (09:34)
[2017-07-02] MEDS: Folic Acid TAB* 1 MG PO SCH (09:35)
[2017-07-02] MEDS: Ferrous Gluconate TAB* 324 MG TAB PO SCH (09:35)
[2017-07-02] MEDS: Cholecalciferol TAB* 1000 UNITS PO SCH (09:35)
[2017-07-02] MEDS: Calcium Polycarbophil TAB* 625 MG PO SCH ×2 (09:35→21:07)
[2017-07-02] MEDS: Ascorbic Acid TAB* 500 MG PO SCH (09:35)
[2017-07-02] MEDS: Diphenoxylat/Atrop 2.5-0.025M* 1 TAB PO SCH ×2 (09:36→21:06)
[2017-07-02] MEDS: Lactobacillus Acidophilu (GG)* 1 CAP CAP PO SCH ×2 (09:36→21:07)
[2017-07-02] MEDS: Furosemide TAB* 40 MG PO SCH ×2 (09:36→21:07)
[2017-07-02] MEDS: Cyanocobalamin TAB* 500 MCG PO SCH (09:36)
[2017-07-02] MEDS: Nystatin CREAM* 15 GM TUBE TOPICAL SCH ×2 (09:37→21:08)
[2017-07-02] MEDS: Enoxaparin(*) 40 MG/0.4 ML SYR SUBCUT SCH (17:03)
[2017-07-03] MEDS: fentaNYL Patch Check Q Shift 1 NOTE SCH ×2 (06:38→19:08)
[2017-07-03] MEDS: oxyCODONE TAB* 5 MG TAB PO PRN ×3 (07:30→18:19)
[2017-07-03] MEDS: Omeprazole CAP* 20 MG PO SCH (07:30)
[2017-07-03] MEDS: Pregabalin CAP(*) 50 MG PO SCH ×3 (09:05→21:30)
[2017-07-03] MEDS: Folic Acid TAB* 1 MG PO SCH (09:05)
[2017-07-03] MEDS: Diphenoxylat/Atrop 2.5-0.025M* 1 TAB PO SCH (09:06)
[2017-07-03] MEDS: Lactobacillus Acidophilu (GG)* 1 CAP CAP PO SCH ×2 (09:06→21:30)
[2017-07-03] MEDS: Zinc Sulfate CAP* 220 MG PO SCH (09:06)
[2017-07-03] MEDS: Ascorbic Acid TAB* 500 MG PO SCH (09:06)
[2017-07-03] MEDS: Ferrous Gluconate TAB* 324 MG TAB PO SCH (09:06)
[2017-07-03] MEDS: Calcium Polycarbophil TAB* 625 MG PO SCH (09:06)
[2017-07-03] MEDS: Aspirin EC Low Dose* 81 MG TAB.EC PO SCH (09:07)
[2017-07-03] MEDS: Furosemide TAB* 40 MG PO SCH ×2 (09:07→21:30)
[2017-07-03] MEDS: Cholecalciferol TAB* 1000 UNITS PO SCH (09:07)
[2017-07-03] MEDS: Cyanocobalamin TAB* 500 MCG PO SCH (09:40)
--- NOTE | 2017-07-03 13:43 | PN ---
Subjective Date of Service: 07/03/17 Interval History: Patient has no complaints today. Plan for Colonoscopy tomorrow morning with Fecal Management system to be placed overnight to preserve integrity of skin flap. Patient denies any previous hemodynamic complications with colonoscopies related to spinal injury. Family History: Unchanged from Admission Social History: Unchanged from Admission Past Medical History: Unchanged from Admission Objective Active Medications: Acetaminophen (Tylenol Tab*) 650 mg PO Q6H PRN PRN Reason: FEVER/PAIN Last Admin: 06/18/17 20:20 Dose: 650 mg Ascorbic Acid (Vitamin C Tab*) 500 mg PO DAILY [facility] Last Admin: 07/03/17 09:06 Dose: 500 mg Aspirin (Aspirin Ec Low Dose*) 81 mg PO DAILY [facility] Last Admin: 07/03/17 09:07 Dose: 81 mg Cholecalciferol (Vitamin D Tab*) 5,000 units PO DAILY [facility] Last Admin: 07/03/17 09:07 Dose: 5,000 units Clotrimazole (Clotrimazole 1%*) 1 applic TOPICAL DAILY [facility] Cyanocobalamin (Vitamin B12 Tab*) 1,000 mcg PO DAILY [facility] Last Admin: 07/03/17 09:40 Dose: 1,000 mcg Enoxaparin Sodium (Lovenox(*)) 40 mg SUBCUT Q24H [facility] Last Admin: 07/02/17 17:03 Dose: 40 mg Fentanyl (Duragesic Patch 75 Mcg/Hr*) 75 mcg TRANSDERM Q72H [facility] Last Admin: 07/02/17 06:24 Dose: 75 mcg Ferrous Gluconate (Fergon Tab*) 324 mg PO DAILY [facility] Last Admin: 07/03/17 09:06 Dose: 324 mg Folic Acid (Folvite Tab*) 0.5 mg PO DAILY [facility] Last Admin: 07/03/17 09:05 Dose: 0.5 mg Furosemide (Lasix Tab*) 40 mg PO BID [facility] Last Admin: 07/03/17 09:07 Dose: 40 mg Heparin Sodium (Porcine) (Heparin Flush Picc/Ml/Cvc(*)) 0 ml IV FLUSH 0600, 1800 [facility] PRN Reason: Protocol Last Admin: 07/03/17 05:32 Dose: 1 ml Lactobacillus Rhamnosus (Culturelle*) 1 cap PO BID [facility] Last Admin: 07/03/17 09:06 Dose: 1 cap Omeprazole (Prilosec Cap*) 40 mg PO DAILY@0730 [facility] Last Admin: 07/03/17 07:30 Dose: 40 mg Ondansetron HCl (Zofran Inj*) 4 mg IV Q4H PRN PRN Reason: NAUSEA Last Admin: 06/28/17 20:41 Dose: 4 mg Oxycodone HCl (Roxycodone Tab*) 5 mg PO Q4H PRN PRN Reason: PAIN Last Admin: 07/03/17 12:05 Dose: 5 mg Pharmacy Profile Note (Fentanyl Patch Check Q Shift) 1 note N/A 0700,1900 [facility] Last Admin: 07/03/17 06:38 Dose: 1 note Polyethylene Glycol/Electrolytes (Golytely*) 4,000 ml PO ONCE ONE Stop: 07/03/17 14:01 Pregabalin (Lyrica Cap(*)) 150 mg PO TID [facility] Last Admin: 07/03/17 09:05 Dose: 150 mg Zinc Sulfate (Zinc-220 Cap*) 220 mg PO DAILY [facility] Last Admin: 07/03/17 09:06 Dose: 220 mg Vital Signs - 8 hr 07/03/17 07/03/17 07/03/17 07:30 09:05 09:06 Respiratory 16 20 20 Rate 07/03/17 07/03/17 12:02 12:05 Respiratory 18 18 Rate Oxygen Devices in Use Now: None Appearance: Patient is a 71yo male who appears stated age and is sitting in the chair in [facility]. Eyes: No Scleral Icterus, PERRLA Ears/Nose/Mouth/Throat: NL Teeth, Lips, Gums, Clear Oropharnyx, Mucous Membranes Moist Neck: NL Appearance and Movements; NL JVP, Trachea Midline Respiratory: Symmetrical Chest Expansion and Respiratory Effort, Clear to Auscultation Cardiovascular: NL Sounds; No Murmurs; No JVD, RRR, No Edema Abdominal: No Hepatosplenomegaly, - - Baseline distention. No tenderness, normal sounds. Lymphatic: No Cervical Adenopathy Extremities: No Edema, No Clubbing, Cyanosis Skin: No Nodules or Sclerosis, - - Serpiginous rash on abdomen and in groin. Worse than previous exams. Neurological: Alert and Oriented x 3, - - Insensate and paralyzed from waist down. Result Diagrams: 07/02/17 06:34 07/02/17 06:34 Assess/Plan/Problems-Billing . Assessment: Ms Merino is 71 yo man with paraplegia s/p plastic surgery for Stage IV sacral wound and acute osteomyelitis as well as chronic pain. - Patient Problems (1) Chronic diarrhea Current Visit: Yes Status: Acute Code(s): K52.9 - NONINFECTIVE GASTROENTERITIS AND COLITIS, UNSPECIFIED SNOMED Code(s): 846780507 Comment: Likely functional Little to no improvement with fiber and prn Lomotil. Discontinued fiber per family request and possible worsening of diarrhea. Lomotil stopped for bowel prep. Appreciate general surgery consult. Plan for diverting colostomy with general surgery early next year. Plan for colonoscopy tomorrow for monitoring of colonic polyps. Appreciate Gastroenterology input. Patient will begin bowel prep this afternoon and have a clear liquid diet until tomorrow. Will place fecal management system to control expected diarrhea. (2) S/P flap graft Current Visit: Yes Status: Acute Priority: High Code(s): Z98.890 - OTHER SPECIFIED POSTPROCEDURAL STATES SNOMED Code(s): 669202832 Comment: 05/02/2017 at [facility] over large sacral defect Continue fentanyl patch, PRN oxycodone, APAP Small open area being treated with Medihoney and gauze which is nearly healed up to chair max 2hrs, three times daily (3) Tinea corporis Current Visit: No Status: Acute Code(s): B35.4 - TINEA CORPORIS SNOMED Code(s): 75502339 Comment: nnular scaly lesion on hip and new area on abdomen and in groin. Start clotrimazole cream. (4) Chronic back pain Current Visit: No Status: Chronic Code(s): M54.9 - DORSALGIA, UNSPECIFIED; G89.29 - OTHER CHRONIC PAIN SNOMED Code(s): 986710582 Comment: - Secondary to ependymoma. - Continue pregabalin, acetaminophen, oxycodone liquid 5mg q4h, and Fentanyl patch at 75mcg. (5) Neurogenic bladder Current Visit: No Status: Chronic Priority: High Code(s): N31.9 - NEUROMUSCULAR DYSFUNCTION OF BLADDER, UNSPECIFIED SNOMED Code(s): 155324029 Comment: - With chronic indwelling urinary catheter (6) MATY (obstructive sleep apnea) Current Visit: No Status: Chronic Code(s): G47.33 - OBSTRUCTIVE SLEEP APNEA (ADULT) (PEDIATRIC) SNOMED Code(s): 72055595 Comment: Does not wear bipap, states he cannot get a good seal on mask. (7) DVT prophylaxis Current Visit: No Status: Acute Code(s): WFK2772 - SNOMED Code(s): 752718484 Comment: - Lovenox, SCDs Status and Disposition: Swing. PT/OT. Plan for dc Jul 06 and diverting colostomy the following week.
[2017-07-03] MEDS ORDERED: PEG 3000 GI LAVAGE* 1 GALLON PO ONE (14:00)
[2017-07-03] MEDS: Clotrimazole 1% CREAM* 45 GM TOPICAL SCH (14:23)
--- NOTE | 2017-07-03 23:56 | CONS ---
GASTROENTEROLOGY CONSULTATION DATE: 07/03/17 CONSULTING PHYSICIAN: Eduard Ferguson. REASON FOR CONSULTATION: Preoperative surveillance colonoscopy prior to end colostomy to manage decubiti in a paraplegic. HISTORY: This 71-year-old man is paraplegic on account of spinal cord injury in the lower thoracic or upper lumbar area from an ependymoma. At this time, he is being considered for end colostomy. His bowels typically run liquid. Over the last 3 to 4 months, he has been dealing with a decubitus ulcer, this started in the summer of 2016. In April , he was transferred to [facility] where he had plastic surgery and skin flaps applied. They have healed up. Part of his rehab regimen is to lie flat. He has had severe erosive esophagitis diagnosed in October 2014 along with Helicobacter pylori gastritis. He was treated for that and kept on continuous omeprazole 20 mg. 14 months later, repeat upper endoscopy continued to show erosive GERD and the omeprazole was increased to 40. There is no repeat CLOtest in the hospital system. He did have a negative stool for H. pylori antigen in February 2015 approximately 4 months after the first upper endoscopy. He has had 4 or 5 colonoscopies. The most recent in October 2013 with a sigmoid tubulovillous adenoma as the most significant polyp. He has been maintained on ferrous gluconate right along. Part of treatment for his decubitus and healing his plastic surgical wound has been strict bed rest, being popped up just transiently with couple of pillows. He does not sense any acid indigestion and never has when upper endoscopies have shown significant erosive GERD. PAST MEDICAL HISTORY: 1. Paraplegia. 2. Carotid artery stenosis, status post carotid endarterectomy. 3. Sleep apnea. 4. Hypertension. 5. Hyperlipidemia. 6. Appendectomy, early 1980s - perforated. 7. Spinal surgeries for ependymoma in 1970 and 1990 - 4. 8. History of colon polyps with colonoscopies in 1997, 2004, 2008, and 2013. MEDICATIONS: The inpatient list serves as his chronic listing currently and includes, zinc sulfate 220; ferrous gluconate 324; enoxaparin 40; aspirin 81; ascorbic acid 500; fentanyl patch 75 mcg; furosemide 40 b.i.d.; omeprazole 40; oxycodone 5 q.4 p.r.n.; Lyrica 150 t.i.d. per schedule; B12 1000 mcg daily. 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 Dr Castro reports he could walk up to about 6 yrs aago. He has been several decades and his , Deedee is his proxy. Dr. Griffiths is his primary. REVIEW OF SYSTEMS: There is no history of syncope, arrhythmias, palpitations, coronary disease, HI, blood clots, pulmonary embolism, hemoptysis, TB, hepatitis , jaundice. Nutritional status appears to be on the upswing as his most recent albumin 3.6 is up from the high 2's in late February and in March and hemoglobin which had been around 9.6 to 10 in March with his original sepsis admission has now risen to 13.6 with an MCV of 82 up from 79 to 80, although his baseline MCV appears to be 86 to 88 based on 2012. IMPRESSION: This 71-year-old man with paraplegia and trouble with decubiti, needs an ostomy for hygiene and enhancement of his care and avoidance of sepsis. He has a history of some significant polyps and that will be resurveyed prior to performing the colostomy with tattooing of any significant lesions, so that might possibly be included in the surgical specimen. His prep is likely to be difficult and extended. [id number]/[facility] #: [id number] [facility]ITAL[facility]
[2017-07-04] MEDS: Nystatin CREAM* 15 GM TUBE TOPICAL SCH (00:43)
[2017-07-04] MEDS: fentaNYL Patch Check Q Shift 1 NOTE SCH ×3 (07:08→19:03)
[2017-07-04] MEDS: Omeprazole CAP* 20 MG PO SCH (08:22)
[2017-07-04] MEDS: Pregabalin CAP(*) 50 MG PO SCH ×3 (08:22→21:16)
[2017-07-04] MEDS: oxyCODONE TAB* 5 MG TAB PO PRN (08:23)
[2017-07-04] MEDS: Folic Acid TAB* 1 MG PO SCH (09:03)
[2017-07-04] MEDS: Ascorbic Acid TAB* 500 MG PO SCH (09:04)
[2017-07-04] MEDS: Cholecalciferol TAB* 1000 UNITS PO SCH (09:04)
[2017-07-04] MEDS: Furosemide TAB* 40 MG PO SCH ×2 (09:04→21:17)
[2017-07-04] MEDS: Aspirin EC Low Dose* 81 MG TAB.EC PO SCH (09:04)
[2017-07-04] MEDS: Lactobacillus Acidophilu (GG)* 1 CAP CAP PO SCH (09:04)
[2017-07-04] MEDS: Cyanocobalamin TAB* 500 MCG PO SCH (09:04)
[2017-07-04] MEDS: Clotrimazole 1% CREAM* 45 GM TOPICAL SCH (09:05)
[2017-07-04] MEDS ORDERED: PEG 3000 GI LAVAGE* 1 GALLON PO ONE (15:24)
--- NOTE | 2017-07-04 16:47 | PN ---
Hospitalist Progress Note Date of Service: 07/04/17 Patient planned to have colonoscopy today and was given 4L GoLytely started at 1400 on 07/03 for preparation which was completed at approximately 1400 on but had not produced liquid stool. Will give another 2L GoLytely and plan for Colonoscopy tomorrow at 0730 before discharge at 1400 so he can be present for the delivery of his wheelchair.
[2017-07-05] MEDS: fentaNYL PATCH 75 MCG/HR* 75 MCG TRANSDERM SCH (06:11)
[2017-07-05] MEDS: fentaNYL Patch Check Q Shift 1 NOTE SCH (06:54)
[2017-07-05 08:52] VITALS: BP 161/68
[2017-07-05] MEDS: Furosemide TAB* 40 MG PO SCH (09:32)
[2017-07-05] MEDS: Folic Acid TAB* 1 MG PO SCH (09:32)
[2017-07-05] MEDS: Cholecalciferol TAB* 1000 UNITS PO SCH (09:32)
[2017-07-05] MEDS: Omeprazole CAP* 20 MG PO SCH (09:32)
[2017-07-05] MEDS: Ascorbic Acid TAB* 500 MG PO SCH (09:32)
[2017-07-05] MEDS: Cyanocobalamin TAB* 500 MCG PO SCH (09:32)
[2017-07-05] MEDS: Aspirin EC Low Dose* 81 MG TAB.EC PO SCH (09:32)
[2017-07-05] MEDS: Pregabalin CAP(*) 50 MG PO SCH ×2 (09:33→13:21)
[2017-07-05] MEDS: Clotrimazole 1% CREAM* 45 GM TOPICAL SCH (09:33)
[2017-07-05] MEDS ORDERED: Zinc Sulfate CAP* 220 MG PO SCH (10:04)
[2017-07-05] MEDS ORDERED: Diphenoxylat/Atrop 2.5-0.025M* 1 TAB PO SCH (11:00)
[2017-07-05] MEDS ORDERED: Lactobacillus Acidophilu (GG)* 1 CAP CAP PO SCH (11:00)
[2017-07-05] MEDS ORDERED: Ferrous Gluconate TAB* 324 MG TAB PO SCH (11:00)
--- NOTE | 2017-07-05 11:12 | PN ---
Hospitalist Progress Note Date of Service: 07/05/17 Skin Flap on 07/05/2017.
[2017-07-05] MEDS: oxyCODONE TAB* 5 MG TAB PO PRN (11:20)
[2017-07-05] MEDS: Acetaminophen TAB* 325 MG PO PRN (13:21)
--- NOTE | 2017-07-05 14:13 | PRO ---
DATE: 07/05/17 - ROOM #[id number] REFERRING PHYSICIANS: Molly Griffiths, Eduard Ferguson * PROCEDURE: Colonoscopy to cecum with adult colonoscope after 2-day prep. INDICATION: This 71-year-old man with paraplegia and fecal incontinence who has had flap repair of sacral decubitus within the last few months, is now considering a diverting colostomy for hygiene. He has had colon polyps removed in the past, most recently October 2013. No blood has been seen in his stool. This included a two-day prep. Review of his record and review of the risk of autonomic dysreflexia was held with [facility] staff. ENDOSCOPIST: Dr. Villafana. MEDICATIONS: Midazolam 3, meperidine 37.5. FINDINGS: He is a paraplegic man, mildly overweight in no distress. His abdomen is soft. Perianal inspection shows rectal tube which was removed. It had a large, firm bulbous tip. Initial views show a fair prep with lots of granular debris. There were excoriated areas in the proximal rectum consistent with the tubes that had been in place. The adult scope was then inserted with multiple maneuvers and rotations supported by nursing hand checks from 2 staff members and eventually the cecum was reached. The right colon had lots of iron and other pill debris. No polyps were seen. There were no areas of ischemia or scarring. Coming back from the ileocecal valve, no abnormalities were noted. There were some limitations to be used given large pools of iron debris. Close inspection of the rectal irritated areas did not show any mass lesion. IMPRESSION: 1. Rectal irritation. 2. Normal colon - patient prepared for eventual colostomy. [id number]/[facility] #: [id number] [facility]
[2017-07-06] MEDS ORDERED: Buffered Lidocaine 0.9% SYRIN* 5 ML/SYR SYRINGE INTRADERM ONE (11:14)
--- NOTE | 2017-07-06 11:17 | DS ---
AMENDED REPORT NOW INCLUDES COSIGNER DESIGNATION - ESIGNED BEFORE ADJUSTMENTS CC: Dr. Molly Griffiths; Dr. Ashley Harper; Dr. Jay Pacheco; Dr. Eduard Ferguson * DISCHARGE SUMMARY: DATE OF ADMISSION: 05/14/17 DATE OF DISCHARGE: 07/05/17 PRIMARY CARE PROVIDER: Dr. Molly Griffiths. MY ATTENDING WHILE IN THE HOSPITAL: Dr. Ashley Harper * (DICTATED BY MELANIE MARX) PRIMARY DISCHARGE DIAGNOSES: 1. Sacral osteomyelitis, resolved. 2. Sacral decubitus ulcer, status post muscle flap. 3. 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 SECONDARY DISCHARGE DIAGNOSES: 1. Chronic pain with opioid dependence. 2. Neurogenic bladder and bowel. 3. Obstructive sleep apnea. 4. Chronic kidney disease. 5. Asthma. 6. Carotid artery stenosis. STUDIES DONE WHILE IN THE HOSPITAL: None. MEDICATIONS AT DISCHARGE: 1. Vitamin D3 5000 units p.o. daily. 2. Tylenol 650 mg q.6 hours as needed. 3. Vitamin C 500 mg p.o. daily. 4. Aspirin 81 mg p.o. daily. 5. Folic acid 0.5 mg p.o. daily. 6. Clotrimazole cream 1% one application daily. 7. Lomotil one tablet p.o. b.i.d. scheduled. 8. Fentanyl patch 75 mcg transdermal q.72 hours. 9. Ferrous gluconate 324 mg p.o. daily. 10. Lactobacillus acidophilus one capsule p.o. daily. 11. Oxycodone 5 mg p.o. q.4 hours as needed for pain. 12. Zinc sulfate 220 mg p.o. daily. 13. Medihoney 1 gel topical b.i.d. 14. Vitamin B12 1000 mcg p.o. daily. 15. Furosemide 40 mg p.o. b.i.d. 16. Hydrocortisone one application topical t.i.d. as needed. 17. Prilosec 40 mg p.o. daily. 18. Lyrica 150 mg p.o. t.i.d. Medications discontinued at discharge: 1. Oxycodone 10 mg p.o. a.c. 2. Metronidazole 500 mg p.o. b.i.d. 3. Nystatin cream. 4. Econazole. New medications at discharge: 1. Medihoney. 2. Oxycodone. 3. Lomotil. 4. Clotrimazole. HOSPITAL COURSE: This is a brief summary of the patient's presentation. For more details, please see the history and physical from Coretta Anthony from as well as previous admission note from Dr. Jay Pacheco on 03/29/17 and the history and physical from Dr. Vicente Rowland on 03/10/17 as the patient has been admitted to an institution. Since then, the patient has a very complex medical history, which started from an ependymoma in his 20s, which had several spinal surgeries, but progressed to cause paraplegia and numbness from the waist down as well as neurogenic bowel and bladder. The patient was admitted earlier this year to the hospital for a pneumonia likely related to his oversedation from his narcotic use for his chronic pain. The patient was treated with levofloxacin, which seem to cause diarrhea, which has been resistant to medication and has not stopped since then. Secondary to this, the patient was admitted again to the hospital on 03/10/17 with a large decubitus ulcer with underlying sacral osteomyelitis. The patient had a prolonged hospital stay and was discharged to [facility] for further rehabilitation; however, the patient was readmitted to the medical floor on 03/29/17 to further address his sacral wound and osteomyelitis. The patient was treated with antibiotics, intensive nursing care and Dr. Yassine Blankenship from [place] was consulted and the patient was transferred to that institution on 05/01/17, where he underwent a muscle flap to cover his sacral wound. The patient was readmitted to this institution on 05/14/17. The patient then completed 6 weeks of vancomycin, Flagyl and ciprofloxacin therapy for his osteomyelitis. He was also on bedrest with a Clinitron bed for 6 weeks, which greatly improved as well as with turning and positioning, intensive perineal care. The patient through this time continued to have diarrhea; however, there was no deterioration of the patient's muscle flap. The patient was able to engage in PT/OT again starting on 06/12/17. The patient was able to work up to transferring himself with assistance using a slide board to his wheelchair. Surgery was consulted for colostomy to help maintain his perineal integrity. The patient had no other abnormalities while in the hospital. The patient underwent a colonoscopy on as a screening prior to his colostomy. The patient was planned to be discharged from the hospital today with a visiting nurse services and the assistance of his as a trial period to see how well he fares at home with regards to functional capacity, turning positioning and preserving the integrity of his muscle flap. The patient will be readmitted on 07/09/17 in preparation for his colostomy on 07/10/[address] Ferguson. The patient and are in agreement with this plan. PHYSICAL EXAM ON THE DAY OF DISCHARGE: General: The patient is a 71-year-old male who appears stated age and sitting comfortably in the bed, in no acute distress. Vital Signs: Temperature 98.0, pulse rate 70, respiratory rate 12, oxygen saturation 94% on room air, blood pressure 161/68. HEENT: Head: Normocephalic, atraumatic. Sclerae anicteric. No conjunctival injection. Nasal mucosa moist. Oral mucosa moist. No pharyngeal erythema, discharge or exudates noted. Neck: Supple, nontender. No lymphadenopathy. No carotid bruits auscultated. Cardiac: Regular rate and rhythm. No clicks, murmurs, gallops, or rubs. Pulses are 2+ in bilateral dorsalis pedis, posterior tibialis , and radial areas. No edema noted in the bilateral lower extremities. The patient has NIKKI stockings on. Respiratory: Clear to auscultation bilaterally. No wheezes, rales, or rhonchi. Abdomen: Soft, distended at the level consistent with numerous previous exams, nontender. No hepatosplenomegaly. Bowel sounds present and normoactive in all four quadrants. Genitourinary: The patient has an indwelling Fischer catheter with some irritation around the urethral meatus also consistent with many previous exams and not getting worse. The patient has no CVA tenderness or suprapubic tenderness. Skin: The patient has a serpiginous rash on his abdomen and in his groin, which has been fluctuating over the course of his hospitalization and was recently started on clotrimazole cream and has improved slightly. The patient has a large muscle flap over his sacrum, photos of which are available in the chart from 07/05/17. The patient also has a small open area which was also documented on 07/05/17 and has been improving since his return from his surgery. The patient previously had a pressure ulcer with a healed blood blister over it on his left heel, which is now entirely resolved with only a slight area of blanchable erythema. Neurologic: Cranial nerves II through XII intact. No focal deficits , 5/5 strength in the bilateral upper extremities. The patient is insensate and has no ability to move his lower extremities. Sensation to light touch intact in the bilateral upper extremities. Psychiatric: Pleasant and cooperative. LABORATORY DATA: Most recently from 07/02/17, hemoglobin 13.6, hematocrit 40, platelet count 198, BUN 37, creatinine 1.02. Other abnormalities from lab work on 06/29/17, glucose 119, alkaline phosphatase 115, potassium 3.1. DISCHARGE PLAN: The patient will be discharged to home with VNS support as well as support of his who has been working with physical therapy and occupational therapy for months in preparation of being able to assist the patient with his transfers and self care. The patient will also have family in the area. The patient should use his new wheelchair, which is being delivered today with pneumatic cushion as well as turning positioning to help maintain the integrity of his flap. The patient should return to the hospital for any difficulty with this plan. The patient should also attempt to have several high protein meals a day and avoid all shearing forces on his sacral area. The patient should take medications as prescribed, attempting to avoid excessive use of narcotic pain medication to the point where he is oversedated. The patient should continue with clotrimazole cream on his rashes. The patient should return to the hospital on 07/09/17 as scheduled in preparation for his colostomy. The patient is medically optimized for surgery. For more details on the patient's surgical risk, please see the medical optimization from 04/30/17 by MELANIE Marx. The only changes, there is no need for additional preoperative testing at this time as there was not at that time. Since then, the patient's hemoglobin has improved from 12.2 and his creatinine has decreased to 1.02 as above. The patient's osteomyelitis has also resolved, all of which improve the patient's risk profile for surgery. The patient has an RCRI score of 1 due to high risk intraperitoneal surgery at this time indicating at 0.09% risk of major cardiac event. According to the ACS NSQIP surgical risk calculator from the [employer], the patient's risk is of a serious complication is 11.6%, below and average risk of 19.2%. The patient's risk of any complication is 15%, below and average risk of 23%. The patient's risk of is 0.2%. The patient will have a predicted hospital stay of 4.5 days. The patient should engage in activity as tolerated, working with physical therapy and occupational therapy, visiting nurse services to maximize independence at home using an assistive devices such as a slide board. The patient should avoid shearing forces to his sacrum. DIET: The patient should be on a consistent carbohydrate heart healthy diet. TIME SPENT: Approximately 60 minutes were spent on this discharge, 30 of which was spent [id number] with the patient obtaining history and physical and discussing treatment plan with the patient and his . MELANIE MARX [id number]/SHAZIA #: [id number] VALERI
[2017-07-10] MEDS ORDERED: Dexamethasone IV* 4 MG/ML 1 ML (4 MG) IV SLOW PU ONE (06:00)
[2017-07-10] MEDS ORDERED: Famotidine IV* 10 MG/ML 2 ML (20 mg) IV ONE (06:00)
== END 2017-07-05 13:45 | disposition home health service (06) | DRG 540 ==
LOC: SSU 15:44
PROVIDERS: ADMIT Internal Medicine; ATTEND Internal Medicine
PROC: 5A09357 Assistance with Respiratory Ventilation, Less than 24 Consecutive Hours, Continuous Positive Airway Pressure (ICD-10-PCS; principal; 2017-05-14)
PROC: 0DJD8ZZ Inspection of Lower Intestinal Tract, Via Natural or Artificial Opening Endoscopic (ICD-10-PCS; 2017-07-05)
DX: M46.28 Osteomyelitis of vertebra, sacral and sacrococcygeal region (principal); K59.2 Neurogenic bowel, not elsewhere classified; G82.20 Paraplegia, unspecified; N18.3 Chronic kidney disease, stage 3 (moderate); D64.9 Anemia, unspecified; N31.9 Neuromuscular dysfunction of bladder, unspecified; F11.20 Opioid dependence, uncomplicated; I25.10 Atherosclerotic heart disease of native coronary artery without angina pectoris; K52.9 Noninfective gastroenteritis and colitis, unspecified; B35.4 Tinea corporis; G47.33 Obstructive sleep apnea (adult) (pediatric); J45.909 Unspecified asthma, uncomplicated; G89.29 Other chronic pain; I12.9 Hypertensive chronic kidney disease with stage 1 through stage 4 chronic kidney disease, or unspecified chronic kidney disease; K21.9 Gastro-esophageal reflux disease without esophagitis; E66.3 Overweight; G57.93 Unspecified mononeuropathy of bilateral lower limbs; R15.9 Full incontinence of feces; N40.0 Benign prostatic hyperplasia without lower urinary tract symptoms; E78.5 Hyperlipidemia, unspecified; Z88.8 Allergy status to other drugs, medicaments and biological substances; Z91.018 Allergy to other foods; Z86.010 Personal history of colon polyps; Z68.30 Body mass index [BMI] 30.0-30.9, adult; Z99.3 Dependence on wheelchair; Z79.82 Long term (current) use of aspirin
CPT/HCPCS: 36415; 80048; 80053; 80076; 80202; 82565; 84134; 84238; 84520; 85014; 85018; 85025; 85048; 85049; 86140; 86141; 94660; 97530; A9270-GY; J1650; J2405; J2997; J3370

== ENCOUNTER 2017-07-09 08:11 | Inpatient (IN) | payer MEDICARE ==
[2017-07-09] MEDS ORDERED: Enoxaparin(*) 40 MG/0.4 ML SYR SUBCUT SCH (09:00)
[2017-07-09] MEDS ORDERED: WOUND DRESSINGS TOPICAL SCH (09:00)
[2017-07-09 09:31] LABS: ABS Basophils 0.1 10^3/ul (0-0.2); ABS Eosinophils 0.3 10^3/ul (0-0.6); ABS Neutrophils 4.6 10^3/ul (1.5-7.7); ABS Nucleated RBC 0 10^3/ul; Eosinophil % 4.2 % (0-6); Hematocrit 39 % (42-52); Hemoglobin 13.1 g/dl (14.0-18.0); Lymphocyte % 25.5 % (25-47); Mean Corpuscular HGB Conc 33 g/dl (31-36); Mean Corpuscular Hemoglobin 27 pg (27-31); Mean Corpuscular Volume 83 fL (80-94); Mean Platelet Volume 8 um3 (7.4-10.4); Nucleated Red Blood Cells % 0; Platelet Count 246 10^3/ul (150-450); Red Blood Count 4.77 10^6/ul (4.0-5.4); Red Cell Distribution Width 15 % (10.5-15)
[2017-07-09 09:41] LABS: EGFR Non-African American 55.4 (>60)
[2017-07-09] MEDS: Clotrimazole 1% CREAM* 45 GM TOPICAL SCH (10:49)
[2017-07-09] MEDS: Ascorbic Acid TAB* 500 MG PO SCH (10:49)
[2017-07-09] MEDS: Cholecalciferol TAB* 1000 UNITS PO SCH (10:49)
[2017-07-09] MEDS: Folic Acid TAB* 1 MG PO SCH (10:49)
[2017-07-09] MEDS: Cyanocobalamin TAB* 500 MCG PO SCH (10:49)
[2017-07-09] MEDS: Ferrous Gluconate TAB* 324 MG TAB PO SCH (10:49)
[2017-07-09] MEDS: Zinc Sulfate CAP* 220 MG PO SCH (10:50)
[2017-07-09] MEDS: Hydrocortisone 1% CREAM* 30 GM TUBE TOPICAL SCH ×3 (10:50→20:16)
[2017-07-09] MEDS: Lactobacillus Acidophilu (GG)* 1 CAP CAP PO SCH (10:50)
[2017-07-09] MEDS: Pregabalin CAP(*) 50 MG PO SCH ×3 (10:50→20:15)
[2017-07-09] MEDS: Furosemide TAB* 40 MG PO SCH ×2 (10:50→20:15)
[2017-07-09] MEDS: fentaNYL PATCH 75 MCG/HR* 75 MCG TRANSDERM SCH (11:01)
--- NOTE | 2017-07-09 11:08 | HP ---
CC: Dr. Griffiths.* HOSPITAL MEDICINE HISTORY AND PHYSICAL: DATE OF ADMISSION: 07/09/17 PRIMARY CARE PHYSICIAN: Dr. Griffiths. ATTENDING PHYSICIAN: Dr. Ashley Harper * (dictation provided by Elisa Barr NP ) REASON FOR ADMISSION: Planned diverting colostomy. HISTORY OF PRESENT ILLNESS: Mr. 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 The patient was admitted to our hospital most recently from 05/14/17 to after the muscle flap placement for his decubitus ulcer. He was doing well and working on the transfers. Mr. Merino continued to have frequent small amounts of diarrhea with incontinence , despite immodium and fiber supplementaton, and plans were made for him to undergo a diverting colostomy to protect his muscle flap and prevent further decubitus ulcerations. In preparation for this he underwent a colonoscopy on 07/05/[address] Villafana. Please see his report for complete details, but his impression was that there was "rectal irritation. Normal colon - the patient prepared for ventral colostomy." The patient and his state he has been doing well since returning home. The only issue is that he has not had a bowel movement for the past 3 days, which is not entirely unexpected after his recent bowel prep for colonoscopy. The patient states he has been eating and drinking normally. He has had no nausea, vomiting, or abdominal pain. There have been no changes with this medications. The has continued to do his daily dressing changes and notes that the small opening at the gluteal cleft, which had been preexisting area left open by the surgeon due to inability to close at that location, has been doing well and seems to be continuing to heal well. The patient has had no other issue with muscle flap. PAST MEDICAL HISTORY: 1. 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 2. History of sacral osteomyelitis, resolved. 3. History of sacral decubitus ulcer, now status post muscle flap. 4. Chronic pain with opioid dependence. 5. Neurogenic bladder and bowel. 6. Obstructive sleep apnea. 7. Chronic kidney disease. 8. Asthma. 9. Carotid artery stenosis. 10. Appendectomy. 11. Right carotid endarterectomy. The patient presents to the hospital for a planned diverting colostomy. He has had ongoing issues with diarrhea. There is concern that this will ultimately undermine the integrity of his new muscle flap and therefore diverting colostomy is planned. MEDICATIONS: Medications today are: 1. Vitamin D3 5000 units p.o. daily. 2. Tylenol 650 mg p.o. q.6 hours as needed. 3. Vitamin C 500 mg p.o. daily. 4. Aspirin 81 mg p.o. daily. 5. Folic acid 0.5 mg p.o. daily. 6. Clotrimazole cream 1% one application daily. 7. Lomotil 1 tablet p.o. b.i.d. as scheduled. 8. Fentanyl patch 75 mcg transdermally q.72 hours. 9. Ferrous gluconate 324 mg p.o. daily. 10. Lactobacillus acidophilus 1 capsule p.o. daily. 11. Oxycodone 5 mg p.o. q.4 hours as needed for pain. 12. Zinc sulfate 220 mg p.o. daily. 13. Medihoney 1 gel topically b.i.d. to the gluteal cleft. 14. Vitamin B12 1000 mcg p.o. daily. 15. Furosemide 40 mg p.o. b.i.d. 16. Hydrocortisone 1 application topically t.i.d. as needed. 17. Prilosec 40 mg p.o. daily. 18. Lyrica 150 mg p.o. t.i.d. ALLERGIES: LIPITOR, CHICKEN, BANANA, and GRAPES. FAMILY HISTORY: Notable for father who of Parkinson's disease and mother is alive at age 99 as of our last discussion with him. SOCIAL HISTORY: The patient is disabled. He is . His is the surrogate decision maker. There is no reported alcohol, tobacco, or drug use. REVIEW OF SYSTEMS: A 14-point review of systems was completed with Mr. Merino today and all those not mentioned above were negative. PHYSICAL EXAMINATION GENERAL: Mr. Merino is lying in the bed with his at the bedside, in no distress and in good spirits. VITAL SIGNS: Vital signs are pending, being placed in the computer and not available at the time of this dictation. LUNGS: Lungs are clear to auscultation bilaterally today with no accessory muscle use and good aeration. HEART: S1 and S2. No murmur, rub or gallop, and regular. ABDOMEN: Soft, nontender with bowel sounds positive x4. EXTREMITIES: No cyanosis, no edema. NEURO: He is alert. He is oriented x3. He does not move his lower extremities. There is good movement in the bilateral upper extremities. There is no facial asymmetry or focal weakness. His speech is clear. Extraocular movements are intact. SKIN: The patient has a well-healing flap with a small ulceration at the gluteal cleft measuring 1.5 cm x 1.5 cm, it is 1 cm deep. There is no tunneling. The entire skin is pink and blanchable. The patient has a few scattered spots, rashy red spots, which the patient's states he is treating with clotrimazole. DIAGNOSTIC STUDIES/LAB DATA: Labs for today are pending. ASSESSMENT AND PLAN: Mr. Merino is a 71-year-old male with a past medical history of paraplegia secondary to ependymoma, complicated by sacral osteomyelitis with decubitus ulcer, now status post muscle flap with good healing. He presents today to the hospital with a planned diverting colostomy. 1. Planned diverting colostomy. Dr. Ferguson has been contacted and the patient will be going for diverting colostomy tomorrow. I note that the patient has had not stool for [address] Ferguson has ordered a clear liquid diet. He will be seeing the patient later today and will add on any other bowel medications or prep that he feels as necessary. Patient is paraplegic and therefore not able to obtain 4 METS of activity. However, he has no known history of coronary artery disease, MA, stroke or CHF. He does have a history of carotid endarterectomy to suggest generalized atherosclerosis. However, based on the RCRI he has no cardiac risk factors and an 0.04% of cardiac complications in the charlene-operative period. I do not recommend any further testing prior to surgery. 2. Chronic pain. Continue fentanyl patch and oxycodone. 3. Recent muscle flap for sacral decubitus ulcer. Continues to heal well. Plan to continue Medihoney dressings daily. 4. Hypertension. Plan to continue Lasix twice daily today, but we will hold in a.m. and we will add back in based on clinical course postoperatively. 5. DVT prophylaxis is with SCDs only at this point per the recommendation of Dr. Ferguson. Additional chemical prophylaxis will be added on postoperatively. 6. Gastroesophageal reflux disease. Continue Prilosec. 7. Chronic kidney disease stage 3. BMP is pending and we will monitor that intermittently during the hospitalization. 8. Neurogenic bladder. Continue Fischer with plan to change every 30 days as needed per routine. 9. Code status: Full code. TIME SPENT: Approximately 60 minutes were spent in the admission of this patient, more than half the time spent with the patient and his at the bedside reviewing the events leading up to this hospitalization, performing physical examination and reviewing my plan of care. ELISA BARR, LIFE ASSURANCE REPRESENTATIVE [id number]/CPS #: [id number] VALERI
--- NOTE | 2017-07-09 12:04 | PN ---
Progress Note - Progress Note Date of Service: 07/09/17 SOAP: Subjective: Pt seen , chart reviewed. Feels well Fecal incontinence and for planned diverting colostomy tomorrow. No new compliants. New wheelchair has been obtained. Objective: af vss labs reviewed Assessment: Fecal incontinence Plan: OR tomorrow with Dr Ferguson. NPO at [place] Clears today
[2017-07-09] MEDS: oxyCODONE TAB* 5 MG TAB PO PRN (14:12)
[2017-07-10] MEDS ORDERED: Dexamethasone IV* 4 MG/ML 1 ML (4 MG) ONE (08:55)
[2017-07-10] MEDS ORDERED: Famotidine IV* 10 MG/ML 2 ML (20 mg) ONE (08:55)
[2017-07-10] MEDS ORDERED: Bupivacaine 0.25% SDV* 30 ML ONE (09:45)
[2017-07-10] MEDS ORDERED: Lidocaine 2% PF * 5 ML VIAL ONE (10:20)
[2017-07-10] MEDS ORDERED: fentaNYL* 50 MCG/ML 5 ML VIAL (250 MCG VIAL) ONE (10:20)
[2017-07-10] MEDS ORDERED: Propofol* 10 MG/ML 20 ML BTL IV PUSH ONE (10:20)
[2017-07-10] MEDS ORDERED: Rocuronium* 10 MG/ML VIAL ONE (10:20)
[2017-07-10] MEDS ORDERED: Phenylephrine IV* 40 MCG/ML 10 ML SYRINGE ONE (10:37)
[2017-07-10] MEDS ORDERED: KETAMINE HCL* 50 MG/ML 10 ML VIAL ONE (10:41)
[2017-07-10] MEDS ORDERED: fentaNYL* 50 MCG/ML 2 ML VIAL (100 MCG VIAL) ONE ×3 (10:55→14:45)
[2017-07-10] MEDS ORDERED: Metoprolol Tartrate IV* 1 MG/ML 5 ML VIAL ONE (10:56)
[2017-07-10] MEDS ORDERED: Ertapenem* 1 GM in NS 0.9% 50 ML* 50 ML IVPB ONE (11:00)
[2017-07-10] MEDS ORDERED: Ondansetron INJ* 2 MG/ML VIAL ONE (11:44)
[2017-07-10] MEDS ORDERED: Glycopyrrolate IV* 0.2 MG/ML 1 ML VIAL ONE (11:48)
[2017-07-10] MEDS ORDERED: Neostigmine Methylsulfate* 2 MG/2 ML SYRINGE ONE (11:48)
--- NOTE | 2017-07-10 12:46 | PN ---
Progress Note - Progress Note Date of Service: 07/10/17 Note: Brief Operative Note: Pre-op: Sacral decubitus with osteomylitis; Fecal incontinence Post-op: Same Procedure: Laparoscopic sigmoid colostomy Surgeon: Dr. Ferguson Ordering Machine Operator; JONO Bell PA-S Anaesthesia: GETA EBL: Minimal Fluids: 1500 cc LR Drains: None Catheter: Fischer to gravity Specimen: None Findings: See dictated op note
[2017-07-10] MEDS ORDERED: Labetalol IV* 5 MG/ML 20 ML VIAL ONE (13:50)
[2017-07-10] MEDS ORDERED: HYDROmorphone INJ* 1 MG/ML CARPUJECT SYRINGE ONE (14:26)
[2017-07-10] MEDS ORDERED: Acetaminophen IV 1GM/100ML * 100 ML ONE (14:45)
[2017-07-10] MEDS ORDERED: hydrALAZINE IV* 20 MG/ML VIAL ONE (14:45)
[2017-07-10] MEDS: fentaNYL Patch Check Q Shift 1 NOTE SCH ×2 (15:57→18:53)
[2017-07-10] MEDS: Ascorbic Acid TAB* 500 MG PO SCH (15:57)
[2017-07-10] MEDS: Clotrimazole 1% CREAM* 45 GM TOPICAL SCH (15:57)
[2017-07-10] MEDS: Cholecalciferol TAB* 1000 UNITS PO SCH (15:57)
[2017-07-10] MEDS: Omeprazole CAP* 20 MG PO SCH (15:57)
[2017-07-10] MEDS: Ferrous Gluconate TAB* 324 MG TAB PO SCH (15:58)
[2017-07-10] MEDS: Cyanocobalamin TAB* 500 MCG PO SCH (15:58)
[2017-07-10] MEDS: Hydrocortisone 1% CREAM* 30 GM TUBE TOPICAL SCH ×2 (15:58→20:39)
[2017-07-10] MEDS: Lactobacillus Acidophilu (GG)* 1 CAP CAP PO SCH (15:58)
[2017-07-10] MEDS: Folic Acid TAB* 1 MG PO SCH (15:58)
[2017-07-10] MEDS: Zinc Sulfate CAP* 220 MG PO SCH (15:58)
[2017-07-10] MEDS: Pregabalin CAP(*) 50 MG PO SCH ×3 (15:58→20:36)
--- NOTE | 2017-07-10 16:50 | PN ---
Subjective Date of Service: 07/10/17 Interval History: Patient went for colostomy today. Examined when back in room. Rates incision pain at 6/10. States his feet hurt, but this often happens when he has delayed his lyrica. Denies other complaints. No events when discharged from the hospital , did well at home with support of . Family History: Unchanged from Admission Social History: Unchanged from Admission Past Medical History: Unchanged from Admission Objective Active Medications: Acetaminophen (Tylenol Tab*) 650 mg PO Q6H PRN PRN Reason: FEVER/PAIN Ascorbic Acid (Vitamin C Tab*) [address] [facility] Last Admin: 07/10/17 15:57 Dose: Not Given Cholecalciferol (Vitamin D Tab*) 5,[address] [facility] Last Admin: 07/10/17 15:57 Dose: Not Given Clotrimazole (Clotrimazole 1%*) [address] [facility] Last Admin: 07/10/17 15:57 Dose: Not Given Cyanocobalamin (Vitamin B12 Tab*) 1,[address] [facility] Last Admin: 07/10/17 15:58 Dose: Not Given Fentanyl (Duragesic Patch 75 Mcg/Hr*) [address] [facility] Last Admin: 07/09/17 11:01 Dose: 75 mcg Ferrous Gluconate (Fergon Tab*) [address] [facility] Last Admin: 07/10/17 15:58 Dose: Not Given Folic Acid (Folvite Tab*) 0.[address] [facility] Last Admin: 07/10/17 15:58 Dose: Not Given Hydrocortisone (Hytone Cream 1%*) [address] [facility] Last Admin: 07/10/17 15:58 Dose: Not Given Hydromorphone HCl (Dilaudid Injic*) 0.5 mg IV SLOW PU Q1H PRN PRN Reason: PAIN Lactobacillus Rhamnosus (Culturelle*) [address] [facility] Last Admin: 07/10/17 15:58 Dose: Not Given Lisinopril (Prinivil Tab*) [address] [facility] Omeprazole (Prilosec Cap*) 40 mg PO DAILY@0700 [facility] Last Admin: 07/10/17 15:57 Dose: Not Given Oxycodone HCl (Roxycodone Tab*) 5 mg PO Q4H PRN PRN Reason: PAIN Last Admin: 07/09/17 14:12 Dose: 5 mg Pharmacy Profile Note (Fentanyl Patch Check Q Shift) 1 note N/A 0700,1900 [facility] Last Admin: 07/10/17 15:57 Dose: Not Given Potassium Chloride (Klor Con Er Tab*) [address] [facility] Pregabalin (Lyrica Cap(*)) [address] [facility] Last Admin: 07/10/17 16:17 Dose: 150 mg Zinc Sulfate (Zinc-220 Cap*) [address] [facility] Last Admin: 07/10/17 15:58 Dose: Not Given Vital Signs - 8 hr 07/10/17 07/10/17 16:17 16:26 Temperature 97.4 F Pulse Rate 82 Respiratory 16 16 Rate Blood Pressure 178/76 (mmHg) O2 Sat by Pulse 99 Oximetry Oxygen Devices in Use Now: Nasal Cannula - 2L Appearance: Patient is a 71yo male who appears stated age and is sitting in the bed in [facility]. Eyes: No Scleral Icterus, PERRLA Ears/Nose/Mouth/Throat: NL Teeth, Lips, Gums, Clear Oropharnyx, Mucous Membranes Moist Neck: NL Appearance and Movements; NL JVP, Trachea Midline Respiratory: Symmetrical Chest Expansion and Respiratory Effort, Clear to Auscultation Cardiovascular: NL Sounds; No Murmurs; No JVD, RRR, - - 1+ edema in B/L LE. Pulses normal. Abdominal: No Hepatosplenomegaly, - - Tenderness. Dark Red stoma covered by bag draining dark red blood. Lymphatic: No Cervical Adenopathy Extremities: No Clubbing, Cyanosis Skin: No Nodules or Sclerosis, - - Improved serpinginous rash on abdomen Neurological: - - Sedated. A/Ox2. CN II-XII intact. Insensate and immobile below waist. Result Diagrams: 07/09/17 09:07 07/09/17 09:07 Assess/Plan/Problems-Billing Assessment: Patient is a 71yo male with a PMH significant for Ependymoma with several surgeries, Sacral Decubitus Ulcer with underlying sacral osteomyelitis status post flap who presents for diverting colostomy to aid in the healing of his ulcer, which he tolerated well. - Patient Problems (1) Chronic diarrhea Current Visit: No Status: Acute Code(s): K52.9 - NONINFECTIVE GASTROENTERITIS AND COLITIS, UNSPECIFIED SNOMED Code(s): 893737255 Comment: S/P diverting colostomy. POD#0. Appreciate General Surgery. Will continue pain control on home meds. Patient has not had BM in 4 days since Bowel Prep. Will monitor and give laxatives as needed. (2) Acute osteomyelitis of sacrum Current Visit: No Status: Acute Priority: High Code(s): M46.28 - OSTEOMYELITIS OF VERTEBRA, SACRAL AND SACROCOCCYGEAL REGION SNOMED Code(s): 577572120 Comment: s/p debridement at time of flap creation at [facility] Completed antibiotics 06/13 (3) S/P flap graft Current Visit: No Status: Acute Priority: High Code(s): Z98.890 - OTHER SPECIFIED POSTPROCEDURAL STATES SNOMED Code(s): 872845822 Comment: 05/02/2017 at [facility] over large sacral defect Continue fentanyl patch, PRN oxycodone, APAP Small open area being treated with Medihoney and gauze which is nearly healed up to chair max 2hrs, three times daily (4) Tinea corporis Current Visit: No Status: Acute Code(s): B35.4 - TINEA CORPORIS SNOMED Code(s): 17906730 Comment: Improving Annular scaly lesion on hip and new area on abdomen and in groin. Continue Clotrimazole. (5) Chronic indwelling Fischer catheter Current Visit: No Status: Chronic Priority: High Code(s): Z92.89 - PERSONAL HISTORY OF OTHER MEDICAL TREATMENT SNOMED Code(s): 368299534 Comment: Secondary to neurogenic bladder No signs of UTI (6) MATY (obstructive sleep apnea) Current Visit: No Status: Chronic Code(s): G47.33 - OBSTRUCTIVE SLEEP APNEA (ADULT) (PEDIATRIC) SNOMED Code(s): 22922538 Comment: Does not wear bipap, states he cannot get a good seal on mask. (7) HTN (hypertension) Current Visit: No Status: Chronic Code(s): I10 - ESSENTIAL (PRIMARY) HYPERTENSION SNOMED Code(s): 42478304 Comment: Hypertensive after surgery Continue lasix and start Lisinopril for HTN and renal protection. (8) Hypokalemia Current Visit: Yes Status: Acute Code(s): E87.6 - HYPOKALEMIA SNOMED Code( s): 78930027 Comment: 3.1 on admission. Resume supplementation. (9) Full code status Current Visit: No Status: Acute Code(s): Z78.9 - OTHER SPECIFIED HEALTH STATUS SNOMED Code(s): 833486337 Comment: (10) DVT prophylaxis Current Visit: No Status: Acute Code(s): LDW2620 - SNOMED Code(s): 365106680 Comment: - Lovenox, SCDs Status and Disposition: Patient is admitted inpatient. Will discharge when able to resume home routine.
[2017-07-10] MEDS ORDERED: Potassium Chlor TAB* 20 MEQ TAB.ER PO SCH (17:00)
[2017-07-10] MEDS: Lisinopril TAB* 5 MG PO SCH (17:17)
[2017-07-10] MEDS: Potassium Chlor TAB* 10 MEQ TAB.ER PO SCH (17:17)
[2017-07-10] MEDS: oxyCODONE TAB* 5 MG TAB PO PRN (17:17)
[2017-07-10] MEDS: HYDROmorphone INJ* 1 MG/ML CARPUJECT SYRINGE IV SLOW PU PRN ×2 (18:17→20:37)
[2017-07-11 06:27] LABS: ABS Basophils 0 10^3/ul (0-0.2); ABS Eosinophils 0 10^3/ul (0-0.6); ABS Lymphocytes 1.5 10^3/ul (1.0-4.8); ABS Monocytes 0.9 10^3/ul (0-0.8); ABS Neutrophils 5.9 10^3/ul (1.5-7.7); ABS Nucleated RBC 0 10^3/ul; Eosinophil % 0 % (0-6); Hematocrit 35 % (42-52); Hemoglobin 12.1 g/dl (14.0-18.0); Lymphocyte % 17.7 % (25-47); Mean Corpuscular HGB Conc 34 g/dl (31-36); Mean Corpuscular Hemoglobin 28 pg (27-31); Mean Corpuscular Volume 81 fL (80-94); Mean Platelet Volume 8 um3 (7.4-10.4); Nucleated Red Blood Cells % 0; Platelet Count 282 10^3/ul (150-450); Red Blood Count 4.36 10^6/ul (4.0-5.4); Red Cell Distribution Width 16 % (10.5-15); White Blood Count 8.4 10^3/ul (3.5-10.8)
[2017-07-11 06:45] LABS: EGFR Non-African American 66.7 (>60)
[2017-07-11] MEDS: fentaNYL Patch Check Q Shift 1 NOTE SCH ×2 (06:56→18:37)
[2017-07-11] MEDS: Omeprazole CAP* 20 MG PO SCH (06:57)
--- NOTE | 2017-07-11 07:58 | OP ---
CC: Molly Griffiths MD; Yassine Blankenship MD, [facility]; Kishan Villafana MD * DATE OF OPERATION: 07/10/17 - ROOM #346 DATE OF : 45 SURGEON: Eduard Ferguson MD MECHANICAL INSULATOR: MELANIE Mesa ANESTHESIOLOGIST: Eva Summers MD ANESTHESIA: General endotracheal. PRE-OP DIAGNOSIS: Sacral osteomyelitis and fecal incontinence. POST-OP DIAGNOSIS: Sacral osteomyelitis and fecal incontinence. OPERATIVE PROCEDURE: Laparoscopic colostomy. ESTIMATED BLOOD LOSS: Minimal. IV FLUIDS: 1.5 Liters crystalloid. SPECIMENS: None. DRAINS: None. COMPLICATIONS: None. COUNTS: Instrument, needle, and sponge counts correct. DESCRIPTION OF PROCEDURE: The patient was brought to the operating room and placed on the table supine. Sequential compression devices were placed on both lower extremities. General anesthesia was administered. His abdomen was prepped and draped in the usual sterile fashion. Time-out was performed. Local anesthetic was infiltrated to the skin and soft tissue prior to making each incision. Entry into the abdomen was through a transumbilical incision vertically using an open technique. After accessing the peritoneal cavity a 5- mm trocar was placed and inspection revealed no adhesions in the left lower quadrant with redundant sigmoid colon. 5-mm trocars were placed in the suprapubic region and in the site of the preoperatively marked proposed ostomy site. Four 5-mm trocars were placed in the upper midline in the abdomen. The descending colon and sigmoid colon were mobilized using combination of LigaSure and cautery and sharp dissection. There appeared to be adequate length of descending and sigmoid colon to be brought up as a loop to the anterior abdominal wall and then a disc of skin was removed from the proposed ostomy site in the left lower quadrant. Subcutaneous fat was also excised and the anterior rectus fascia was incised in a cruciate fashion. The underlying rectus muscle was retracted medially and laterally and the posterior sheath was elevated and incised, dilated with the finger and then the loop of colon was brought up through this opening. The bowel was encircled with a red rubber catheter to elevate it. Subsequently, it was decided to divide the bowel with a ALIE stapler and the distal portion was left within the subcutaneous tissues. The proximal portion was used for the colostomy. The ports were removed under direct visualization and carbon dioxide was released. The umbilical wound was closed with 0 Polysorb for the fascia and the skin was closed with 4-0 Monocryl. DermaFlex was applied at the umbilical incision and Steri-Strips at the remaining incisions. The colostomy was then matured with 3-0 Vicryl suture and digital exam revealed adequate patency. The appliance was placed and the patient was subsequently extubated and awakened and transferred to the recovery in stable condition. [id number]/[facility] #: [id number] [facility] SYSTEMCharl[place]
[2017-07-11] MEDS: Cyanocobalamin TAB* 500 MCG PO SCH (08:34)
[2017-07-11] MEDS: Pregabalin CAP(*) 50 MG PO SCH ×3 (08:34→21:30)
[2017-07-11] MEDS: Lactobacillus Acidophilu (GG)* 1 CAP CAP PO SCH (08:34)
[2017-07-11] MEDS: Potassium Chlor TAB* 10 MEQ TAB.ER PO SCH (08:34)
[2017-07-11] MEDS: Ascorbic Acid TAB* 500 MG PO SCH (08:34)
[2017-07-11] MEDS: Ferrous Gluconate TAB* 324 MG TAB PO SCH (08:34)
[2017-07-11] MEDS: Lisinopril TAB* 5 MG PO SCH (08:35)
[2017-07-11] MEDS: Folic Acid TAB* 1 MG PO SCH (08:35)
[2017-07-11] MEDS: Zinc Sulfate CAP* 220 MG PO SCH (08:36)
[2017-07-11] MEDS: Cholecalciferol TAB* 1000 UNITS PO SCH (08:43)
[2017-07-11] MEDS: oxyCODONE TAB* 5 MG TAB PO PRN (08:43)
[2017-07-11] MEDS: Clotrimazole 1% CREAM* 45 GM TOPICAL SCH (08:57)
[2017-07-11] MEDS: HYDROmorphone INJ* 1 MG/ML CARPUJECT SYRINGE IV SLOW PU PRN ×4 (09:23→22:31)
[2017-07-11] MEDS: Hydrocortisone 1% CREAM* 30 GM TUBE TOPICAL SCH ×3 (11:13→21:50)
[2017-07-11] MEDS ORDERED: Propofol* 10 MG/ML 20 ML BTL IV PUSH ONE ×2 (12:44→14:47)
[2017-07-11] MEDS ORDERED: Rocuronium* 10 MG/ML VIAL ONE (12:44)
[2017-07-11] MEDS ORDERED: Lidocaine 2% PF * 5 ML VIAL ONE (12:44)
[2017-07-11] MEDS ORDERED: Bupivacaine 0.25% SDV* 30 ML ONE (12:50)
[2017-07-11] MEDS ORDERED: ERTApenem 1 GM in 50 mL NS IVPB ONE (13:00)
[2017-07-11] MEDS ORDERED: fentaNYL* 50 MCG/ML 2 ML VIAL (100 MCG VIAL) ONE ×3 (13:26→15:44)
[2017-07-11] MEDS ORDERED: ceFOXitin 2 GM IVPREMIX* 2 GM/50 ML BAG ONE (13:56)
[2017-07-11] MEDS ORDERED: Neostigmine Methylsulfate* 2 MG/2 ML SYRINGE ONE (14:43)
[2017-07-11] MEDS ORDERED: Glycopyrrolate IV* 0.2 MG/ML 1 ML VIAL ONE (14:43)
[2017-07-11] MEDS ORDERED: Phenylephrine INJ* 10 MG/ML 1 ML VIAL (10 MG) ONE (15:07)
--- NOTE | 2017-07-11 15:17 | OP ---
Operative Report - Blank - Operative Report Date of Operation: 07/11/17 Note: Preop Dx: Ischemic colostomy Postop Dx: same Procedure: laparoscopic revision of colostomy Anesthesia: GET Surgeon: Marty Asst: MELANIE Ramirez; GARY Dacosta Fluids: 1300 ml EBL: < 50 ml Drains: none Specimen: colostomy Findings: dictated
[2017-07-11] MEDS ORDERED: fentaNYL* 50 MCG/ML 2 ML VIAL (100 MCG VIAL) IV PRN (15:37)
[2017-07-11] MEDS ORDERED: Naloxone* 0.4 MG/ML 1 ML VIAL IV PRN (15:37)
[2017-07-11] MEDS ORDERED: hydrALAZINE IV* 20 MG/ML VIAL ONE (15:44)
--- NOTE | 2017-07-11 17:49 | PN ---
Subjective Date of Service: 07/11/17 Interval History: Patient examined post-op. Complains of pain in back and abdomen but unable to quantify. Patient shivering and confused. A/Ox2. Patient denies other complaints but ROS limited. Patient went back to the OR today for ischemic colostomy. No signs of sepsis on morning lab work. Family History: Unchanged from Admission Social History: Unchanged from Admission Past Medical History: Unchanged from Admission Objective Active Medications: Acetaminophen (Tylenol Tab*) 650 mg PO Q6H PRN PRN Reason: FEVER/PAIN Ascorbic Acid (Vitamin C Tab*) 500 mg PO DAILY [facility] Last Admin: 07/11/17 08:34 Dose: 500 mg Cholecalciferol (Vitamin D Tab*) 5,000 units PO DAILY [facility] Last Admin: 07/11/17 08:43 Dose: 5,000 units Clotrimazole (Clotrimazole 1%*) 1 applic TOPICAL DAILY [facility] Last Admin: 07/11/17 08:57 Dose: 1 applic Cyanocobalamin (Vitamin B12 Tab*) 1,000 mcg PO DAILY [facility] Last Admin: 07/11/17 08:34 Dose: 1,000 mcg Fentanyl (Duragesic Patch 75 Mcg/Hr*) 75 mcg TRANSDERM Q72H [facility] Last Admin: 07/09/17 11:01 Dose: 75 mcg Fentanyl Citrate (Fentanyl*) 50 mcg IV Q5M PRN PRN Reason: PAIN - MODERATE Stop: 07/11/17 20:00 Ferrous Gluconate (Fergon Tab*) 324 mg PO DAILY [facility] Last Admin: 07/11/17 08:34 Dose: 324 mg Folic Acid (Folvite Tab*) 0.5 mg PO DAILY [facility] Last Admin: 07/11/17 08:35 Dose: 0.5 mg Heparin Sodium (Porcine) (Heparin Vial(*)) 5,000 units SUBCUT Q8HR [facility] Hydrocortisone (Hytone Cream 1%*) 1 applic TOPICAL TID [facility] Last Admin: 07/11/17 17:01 Dose: Not Given Hydromorphone HCl (Dilaudid Injic*) 0.5 mg IV SLOW PU Q1H PRN PRN Reason: PAIN Last Admin: 07/11/17 09:23 Dose: 0.5 mg Lactobacillus Rhamnosus (Culturelle*) 1 cap PO DAILY [facility] Last Admin: 01/03/18 08:34 Dose: 1 cap Lisinopril (Prinivil Tab*) 5 mg PO DAILY [facility] Last Admin: 07/11/17 08:35 Dose: 5 mg Naloxone HCl (Narcan*) 0.08 mg IV Q2M PRN PRN Reason: severe induced resp depression Stop: 07/12/17 08:00 Omeprazole (Prilosec Cap*) 40 mg PO DAILY@0700 [facility] Last Admin: 07/11/17 06:57 Dose: 40 mg Oxycodone HCl (Roxycodone Tab*) 5 mg PO Q4H PRN PRN Reason: PAIN Last Admin: 07/11/17 08:43 Dose: 5 mg Pharmacy Profile Note (Fentanyl Patch Check Q Shift) 1 note N/A 0700,1900 [facility] Last Admin: 07/11/17 06:56 Dose: 1 note Potassium Chloride (Klor Con Er Tab*) 10 meq PO DAILY [facility] Last Admin: 07/11/17 08:34 Dose: 10 meq Pregabalin (Lyrica Cap(*)) 150 mg PO TID [facility] Last Admin: 07/11/17 17:00 Dose: Not Given Zinc Sulfate (Zinc-220 Cap*) 220 mg PO DAILY [facility] Last Admin: 07/11/17 08:36 Dose: 220 mg Vital Signs - 8 hr 07/11/17 07/11/17 07/11/17 10:16 10:38 10:39 Temperature Pulse Rate Respiratory 16 16 16 Rate Blood Pressure (mmHg) O2 Sat by Pulse Oximetry 07/11/17 07/11/17 07/11/17 11:24 15:31 15:35 Temperature 98.2 F 98.1 F Pulse Rate 74 70 65 Respiratory 16 14 14 Rate Blood Pressure 159/61 178/80 182/84 (mmHg) O2 Sat by Pulse 92 100 100 Oximetry 07/11/17 07/11/17 07/11/17 15:40 15:45 16:00 Temperature Pulse Rate 70 74 76 Respiratory 14 14 12 Rate Blood Pressure 171/86 192/85 153/68 (mmHg) O2 Sat by Pulse 100 100 99 Oximetry 07/11/17 07/11/17 07/11/17 16:15 16:30 16:45 Temperature 98.1 F Pulse Rate 83 86 79 Respiratory 14 14 14 Rate Blood Pressure 164/68 168/71 147/64 (mmHg) O2 Sat by Pulse 98 98 96 Oximetry 07/11/17 07/11/17 07/11/17 17:00 17:15 17:27 Temperature 97.7 F 97.6 F Pulse Rate 80 71 70 Respiratory 12 12 16 Rate Blood Pressure 146/70 143/70 148/62 (mmHg) O2 Sat by Pulse 92 96 98 Oximetry Oxygen Devices in Use Now: Nasal Cannula Appearance: Patient is a 71yo male who appears stated age and is sitting in the bed, shivering profusely. Eyes: No Scleral Icterus, PERRLA Ears/Nose/Mouth/Throat: NL Teeth, Lips, Gums, Clear Oropharnyx, Mucous Membranes Moist Neck: NL Appearance and Movements; NL JVP, Trachea Midline Respiratory: Symmetrical Chest Expansion and Respiratory Effort, Clear to Auscultation Cardiovascular: NL Sounds; No Murmurs; No JVD, RRR, No Edema Abdominal: No Hepatosplenomegaly, - - Tenderness to palpation, pink stoma surrounded by bag with minor serous drainage. Lymphatic: No Cervical Adenopathy Extremities: No Edema, No Clubbing, Cyanosis Result Diagrams: 07/11/17 06:06 07/11/17 06:06 Assess/Plan/Problems-Billing Assessment: Patient is a 71yo male with a PMH significant for Ependymoma with several surgeries, Sacral Decubitus Ulcer with underlying sacral osteomyelitis status post flap who presents for diverting colostomy to aid in the healing of his ulcer, which he tolerated well. - Patient Problems (1) Chronic diarrhea Current Visit: No Status: Acute Code(s): K52.9 - NONINFECTIVE GASTROENTERITIS AND COLITIS, UNSPECIFIED SNOMED Code(s): 314194005 Comment: S/P diverting colostomy with revision. POD#1 and #0 respectively. Appreciate General Surgery. Will continue pain control on home meds with Dilaudid PRN. Patient has not had BM in 4 days since Bowel Prep. Will monitor and give laxatives as needed. No signs of ischemia in current stoma. (2) Acute osteomyelitis of sacrum Current Visit: No Status: Acute Priority: High Code(s): M46.28 - OSTEOMYELITIS OF VERTEBRA, SACRAL AND SACROCOCCYGEAL REGION SNOMED Code(s): 142134602 Comment: s/p debridement at time of flap creation at [facility] Completed antibiotics 06/13 (3) S/P flap graft Current Visit: No Status: Acute Priority: High Code(s): Z98.890 - OTHER SPECIFIED POSTPROCEDURAL STATES SNOMED Code(s): 872134963 Comment: 05/02/2017 at [facility] over large sacral defect Continue fentanyl patch, PRN oxycodone, APAP Small open area being treated with Medihoney and gauze which is nearly healed up to chair max 2hrs, three times daily Graft shows no signs of deterioration. (4) Tinea corporis Current Visit: No Status: Acute Code(s): B35.4 - TINEA CORPORIS SNOMED Code(s): 46487728 Comment: Improving Annular scaly lesion on hip and new area on abdomen and in groin. Continue Clotrimazole. (5) Chronic indwelling Fischer catheter Current Visit: No Status: Chronic Priority: High Code(s): Z92.89 - PERSONAL HISTORY OF OTHER MEDICAL TREATMENT SNOMED Code(s): 204583284 Comment: Secondary to neurogenic bladder No signs of UTI (6) MATY (obstructive sleep apnea) Current Visit: No Status: Chronic Code(s): G47.33 - OBSTRUCTIVE SLEEP APNEA (ADULT) (PEDIATRIC) SNOMED Code(s): 79588298 Comment: Does not wear bipap, states he cannot get a good seal on mask. (7) HTN (hypertension) Current Visit: No Status: Chronic Code(s): I10 - ESSENTIAL (PRIMARY) HYPERTENSION SNOMED Code(s): 15541400 Comment: More Hypertensive after second surgery. Given Hydralazine with good effect. Continue lasix and start Lisinopril for HTN and renal protection. (8) Hypokalemia Current Visit: Yes Status: Acute Code(s): E87.6 - HYPOKALEMIA SNOMED Code( s): 35681764 Comment: 3.1 on admission. 4.0 now. Resume supplementation. (9) Full code status Current Visit: No Status: Acute Code(s): Z78.9 - OTHER SPECIFIED HEALTH STATUS SNOMED Code(s): 096468042 Comment: (10) DVT prophylaxis Current Visit: No Status: Acute Code(s): WRW1674 - SNOMED Code(s): 823411824 Comment: - Lovenox, SCDs Status and Disposition: Patient is admitted inpatient. Will discharge when able to resume home routine.
[2017-07-12] MEDS: HYDROmorphone INJ* 1 MG/ML CARPUJECT SYRINGE IV SLOW PU PRN ×3 (02:08→10:55)
[2017-07-12] MEDS: oxyCODONE TAB* 5 MG TAB PO PRN ×4 (03:46→18:50)
[2017-07-12] MEDS: Heparin VIAL(*) 5000 UNITS/ML VIAL (FIVE THOUSAND) SUBCUT SCH ×3 (04:59→21:33)
[2017-07-12 05:16] LABS: ABS Basophils 0.1 10^3/ul (0-0.2); ABS Eosinophils 0 10^3/ul (0-0.6); ABS Lymphocytes 2.6 10^3/ul (1.0-4.8); ABS Monocytes 1.4 10^3/ul (0-0.8); ABS Neutrophils 6.4 10^3/ul (1.5-7.7); ABS Nucleated RBC 0 10^3/ul; Eosinophil % 0.2 % (0-6); Hematocrit 37 % (42-52); Hemoglobin 12.3 g/dl (14.0-18.0); Lymphocyte % 24.9 % (25-47); Mean Corpuscular HGB Conc 33 g/dl (31-36); Mean Corpuscular Hemoglobin 27 pg (27-31); Mean Corpuscular Volume 82 fL (80-94); Mean Platelet Volume 8 um3 (7.4-10.4); Nucleated Red Blood Cells % 0; Platelet Count 289 10^3/ul (150-450); Red Blood Count 4.51 10^6/ul (4.0-5.4); Red Cell Distribution Width 16 % (10.5-15); White Blood Count 10.6 10^3/ul (3.5-10.8)
[2017-07-12 05:32] LABS: EGFR Non-African American 56.4 (>60)
--- NOTE | 2017-07-12 05:55 | OP ---
CC: Molly Griffiths MD* DATE OF OPERATION: 07/11/17 - ROOM #346 DATE OF : 45 SURGEON: Eduard Ferguson MD. ASSOCIATE MEDICAL DIRECTOR: MELANIE Bartlett. ANESTHESIOLOGIST: Braulio Aburto DO. ANESTHESIA: General endotracheal. PRE-OP DIAGNOSIS: Ischemia of colostomy. POST-OP DIAGNOSES: Ischemia of colostomy and abdominal wall hematoma. OPERATIVE PROCEDURE: Laparoscopic-assisted revision of colostomy and evacuation of abdominal wall hematoma. ESTIMATED BLOOD LOSS: Less than 20 mL. IV FLUIDS: Crystalloids. SPECIMENS: Colostomy. DRAINS: None. COMPLICATIONS: None. COUNTS: Instrument, needle, and sponge counts correct. DESCRIPTION OF PROCEDURE: The patient was brought to the operating room and placed on the table supine. Sequential compression devices were placed on both lower extremities and general anesthesia was administered. The abdomen was prepped and draped in the usual sterile fashion. The ostomy site was covered with Tegaderm. Time-out was performed. The prior epigastric and suprapubic wounds were opened by removing the sutures and then a 5-mm trocar was placed into the peritoneal cavity through the epigastric port. Carbon dioxide was insufflated to a pressure of 15 mmHg. A 5- mm 30-degree laparoscope was introduced and the abdominal viscera appeared to be normal with inspection of the proximal colon from the colostomy site, revealing no evidence of ischemia. The proximal end of the distal bowel was still adherent up into the fascial defect. The decision at this point was to revise the colostomy by dividing the bowel with endoscopic staplers and this was achieved by first creating a window in the mesentery of the colon just below the level of the colostomy and then using the EndoGIA stapler with 16-mm purple cartridges the bowel was divided. The intervening mesentry was then divided with LigaSure. At the proximal portion of the distal colon, which was defunctionalized, the bowel was also divided with a stapler. At this point, the abdomen was desufflated and the ostomy site was draped off separately. The Tegaderm was removed and then the colostomy was removed by dividing the previously placed sutures and removing the colostomy to the back table to be sent off as specimen. There was an old hematoma within the abdominal wall, a site which was removed. The site was irrigated. The abdomen was reinsufflated and the proximal colon was easily brought through the ostomy aperture and there was no tension. The 12-mm port site, which had been used for the stapler, which was located in the right abdomen, was then closed using the Endo Close device with 0-Polysorb and the skin incisions were closed with 4-0 Monocryl in a subcuticular fashion. Steri-Strips applied. The colostomy was then matured with 3-0 Polysorb and it appeared pink and viable. A digital examination of the colostomy revealed it to be well patent and there were some brown stool noted. Appliance was applied to the site. The patient tolerated the procedure well, was extubated and transferred to the recovery room in stable condition. [id number]/[facility] #: [id number] [facility]
[2017-07-12] MEDS: Omeprazole CAP* 20 MG PO SCH (06:58)
[2017-07-12] MEDS: fentaNYL Patch Check Q Shift 1 NOTE SCH ×2 (06:58→18:52)
[2017-07-12] MEDS: Zinc Sulfate CAP* 220 MG PO SCH (09:05)
[2017-07-12] MEDS: Lisinopril TAB* 5 MG PO SCH (09:05)
[2017-07-12] MEDS: Potassium Chlor TAB* 10 MEQ TAB.ER PO SCH (09:05)
[2017-07-12] MEDS: Ascorbic Acid TAB* 500 MG PO SCH (09:05)
[2017-07-12] MEDS: Folic Acid TAB* 1 MG PO SCH (09:05)
[2017-07-12] MEDS: Pregabalin CAP(*) 50 MG PO SCH ×3 (09:05→21:34)
[2017-07-12] MEDS: Ferrous Gluconate TAB* 324 MG TAB PO SCH (09:06)
[2017-07-12] MEDS: Cyanocobalamin TAB* 500 MCG PO SCH (09:06)
[2017-07-12] MEDS: Lactobacillus Acidophilu (GG)* 1 CAP CAP PO SCH (09:06)
[2017-07-12] MEDS: Cholecalciferol TAB* 1000 UNITS PO SCH (09:07)
[2017-07-12] MEDS: fentaNYL PATCH 75 MCG/HR* 75 MCG TRANSDERM SCH (09:14)
[2017-07-12] MEDS: oxyCODONE ORAL.SOLN* 5 MG/5 ML UDC PO PRN (10:55)
--- NOTE | 2017-07-12 14:23 | PN ---
Subjective Date of Service: 07/12/17 Interval History: Patient examined and found to still be moderately confused, but states that he is doing ok. Patient states his pain is 5/10 at time of exam. Patient states his pain is in his lower back, legs and abdomen at the colostomy site. Patient denies N/V, F/C, chest pain, SOB, or other pain. Patient's concerned about pain control at discharge and requested that the oxycodone liquid be reinstituted. states that pain control at home was better when she was able to give Oxycodone liquid prior to transfers. Family History: Unchanged from Admission Social History: Unchanged from Admission Past Medical History: Unchanged from Admission Objective Active Medications: Acetaminophen (Tylenol Tab*) 650 mg PO Q6H PRN PRN Reason: FEVER/PAIN Ascorbic Acid (Vitamin C Tab*) 500 mg PO DAILY [facility] Last Admin: 07/12/17 09:05 Dose: 500 mg Cholecalciferol (Vitamin D Tab*) 5,000 units PO DAILY [facility] Last Admin: 07/12/17 09:07 Dose: 5,000 units Clotrimazole (Clotrimazole 1%*) 1 applic TOPICAL DAILY [facility] Last Admin: 07/11/17 08:57 Dose: 1 applic Cyanocobalamin (Vitamin B12 Tab*) 1,000 mcg PO DAILY [facility] Last Admin: 07/12/17 09:06 Dose: 1,000 mcg Fentanyl (Duragesic Patch 75 Mcg/Hr*) 75 mcg TRANSDERM Q72H [facility] Last Admin: 07/12/17 09:14 Dose: 75 mcg Ferrous Gluconate (Fergon Tab*) 324 mg PO DAILY [facility] Last Admin: 07/12/17 09:06 Dose: 324 mg Folic Acid (Folvite Tab*) 0.5 mg PO DAILY [facility] Last Admin: 07/12/17 09:05 Dose: 0.5 mg Heparin Sodium (Porcine) (Heparin Vial(*)) 5,000 units SUBCUT Q8HR [facility] Last Admin: 07/12/17 04:59 Dose: 5,000 units Hydralazine HCl (Apresoline Iv*) 5 mg IV SLOW PU Q6H PRN PRN Reason: SYSTOLIC BP GREATER THAN: Hydrocortisone (Hytone Cream 1%*) 1 applic TOPICAL TID [facility] Last Admin: 07/11/17 21:50 Dose: 1 applic Hydromorphone HCl (Dilaudid Injic*) 0.5 mg IV SLOW PU Q1H PRN PRN Reason: PAIN Last Admin: 07/12/17 10:55 Dose: 0.5 mg Lactobacillus Rhamnosus (Culturelle*) 1 cap PO DAILY [facility] Last Admin: 07/12/17 09:06 Dose: 1 cap Lisinopril (Prinivil Tab*) 5 mg PO DAILY [facility] Last Admin: 07/12/17 09:05 Dose: 5 mg Omeprazole (Prilosec Cap*) 40 mg PO DAILY@0700 [facility] Last Admin: 07/12/17 06:58 Dose: 40 mg Oxycodone HCl (Oxycodone Oral.Soln*) 10 mg PO Q4H PRN PRN Reason: PAIN Last Admin: 07/12/17 10:55 Dose: 10 mg Oxycodone HCl (Roxycodone Tab*) 10 mg PO Q4H PRN PRN Reason: PAIN Pharmacy Profile Note (Fentanyl Patch Check Q Shift) 1 note N/A 0700,1900 [facility] Last Admin: 07/12/17 06:58 Dose: 1 note Potassium Chloride (Klor Con Er Tab*) 10 meq PO DAILY [facility] Last Admin: 07/12/17 09:05 Dose: 10 meq Pregabalin (Lyrica Cap(*)) 150 mg PO TID [facility] Last Admin: 07/12/17 09:05 Dose: 150 mg Zinc Sulfate (Zinc-220 Cap*) 220 mg PO DAILY [facility] Last Admin: 07/12/17 09:05 Dose: 220 mg Vital Signs - 8 hr 07/12/17 07/12/17 07/12/17 07:34 09:00 09:05 Temperature 98.2 F Pulse Rate 85 Respiratory 16 16 16 Rate Blood Pressure 164/75 (mmHg) O2 Sat by Pulse 97 Oximetry 07/12/17 07/12/17 07/12/17 10:55 11:41 12:07 Temperature 98.3 F Pulse Rate 86 Respiratory 16 16 16 Rate Blood Pressure 167/70 (mmHg) O2 Sat by Pulse 94 Oximetry 07/12/17 13:01 Temperature Pulse Rate Respiratory 16 Rate Blood Pressure (mmHg) O2 Sat by Pulse Oximetry Oxygen Devices in Use Now: None Appearance: Patient is a 71yo male who appears stated age and is sitting in the bed in NAD. Eyes: No Scleral Icterus, PERRLA Ears/Nose/Mouth/Throat: NL Teeth, Lips, Gums, Clear Oropharnyx, Mucous Membranes Moist Neck: NL Appearance and Movements; NL JVP, Trachea Midline Respiratory: Symmetrical Chest Expansion and Respiratory Effort, Clear to Auscultation Cardiovascular: NL Sounds; No Murmurs; No JVD, RRR, No Edema, - - Pulses 2+ in B /L radial, DP, PT. Trace edema B/L. Abdominal: No Hepatosplenomegaly, - - Tender to palpation diffusely, improved from previous exam. Hypoactive bowel sounds. Lymphatic: No Cervical Adenopathy Extremities: No Edema, No Clubbing, Cyanosis Skin: No Rash or Ulcers, No Nodules or Sclerosis Neurological: Alert and Oriented x 3, - - Paralyzed and insensate from the waist down. Result Diagrams: 07/12/17 05:03 07/12/17 05:03 Assess/Plan/Problems-Billing Assessment: Patient is a 71yo male with a PMH significant for Ependymoma with several surgeries, Sacral Decubitus Ulcer with underlying sacral osteomyelitis status post flap who presents for diverting colostomy to aid in the healing of his ulcer, which he tolerated well. - Patient Problems (1) Chronic diarrhea Current Visit: No Status: Acute Code(s): K52.9 - NONINFECTIVE GASTROENTERITIS AND COLITIS, UNSPECIFIED SNOMED Code(s): 080986708 Comment: S/P diverting colostomy with revision. POD#2 and #1 respectively. Appreciate General Surgery. Will continue pain control on home meds with Dilaudid PRN. Liquid green fluid draining into colostomy. (2) Acute osteomyelitis of sacrum Current Visit: No Status: Acute Priority: High Code(s): M46.28 - OSTEOMYELITIS OF VERTEBRA, SACRAL AND SACROCOCCYGEAL REGION SNOMED Code(s): 327255529 Comment: s/p debridement at time of flap creation at [facility] Completed antibiotics 06/13 No change in appearance since before last D/C. (3) S/P flap graft Current Visit: No Status: Acute Priority: High Code(s): Z98.890 - OTHER SPECIFIED POSTPROCEDURAL STATES SNOMED Code(s): 594412507 Comment: 05/02/2017 at [facility] over large sacral defect Small open area being treated with Medihoney and gauze which is nearly healed up to chair max 2hrs, three times daily Graft shows no signs of deterioration. (4) Tinea corporis Current Visit: No Status: Acute Code(s): B35.4 - TINEA CORPORIS SNOMED Code(s): 23027224 Comment: Improving Annular scaly lesion on hip and new area on abdomen and in groin. Continue Clotrimazole. (5) Chronic indwelling Fischer catheter Current Visit: No Status: Chronic Priority: High Code(s): Z92.89 - PERSONAL HISTORY OF OTHER MEDICAL TREATMENT SNOMED Code(s): 586640972 Comment: Secondary to neurogenic bladder No signs of UTI (6) MATY (obstructive sleep apnea) Current Visit: No Status: Chronic Code(s): G47.33 - OBSTRUCTIVE SLEEP APNEA (ADULT) (PEDIATRIC) SNOMED Code(s): 57425517 Comment: Does not wear bipap, states he cannot get a good seal on mask. (7) HTN (hypertension) Current Visit: No Status: Chronic Code(s): I10 - ESSENTIAL (PRIMARY) HYPERTENSION SNOMED Code(s): 25720480 Comment: More Hypertensive after second surgery. Given Hydralazine with good effect. Continue lasix and increase Lisinopril for HTN and renal protection. (8) Hypokalemia Current Visit: Yes Status: Acute Code(s): E87.6 - HYPOKALEMIA SNOMED Code( s): 34661183 Comment: Resolved, continue supplementation. (9) Full code status Current Visit: No Status: Acute Code(s): Z78.9 - OTHER SPECIFIED HEALTH STATUS SNOMED Code(s): 054214821 Comment: (10) DVT prophylaxis Current Visit: No Status: Acute Code(s): JDS9324 - SNOMED Code(s): 019924707 Comment: - Lovenox, SCDs Status and Disposition: Patient is admitted inpatient. Will discharge when able to resume home routine.
[2017-07-12] MEDS: Hydrocortisone 1% CREAM* 30 GM TUBE TOPICAL SCH ×2 (14:25→20:51)
[2017-07-12] MEDS: Clotrimazole 1% CREAM* 45 GM TOPICAL SCH (14:30)
[2017-07-12] MEDS: Furosemide TAB* 40 MG PO SCH (18:02)
--- NOTE | 2017-07-12 19:19 | CONSULT ---
Consult Consult: INPATIENT PAIN CONSULTATION Obi Merino is a 71 year old male. 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 He had debulking surgeries many years ago, and had radiation as well. Radiation and chemo were both tried and did not help. Obi has had gradual increasing weakness in his legs. When I first met him in 2011, he was able to ambulate with bilateral AFOs for short distances and used a wheelchair for longer distances. With the progression of tiime, he lost the ability to ambulate. He has always had pain as a result of the tumor invading the lumbar vertebrae, but the pain significantly worsened over the past 2 1/2 years. In Nov, 2016, the pain increased dramatically. His pain medications were increased, and this led to a hospitalization over January 09 weekend when he forgot to catheterize himself. His meds were cut back. He lost the ability to transfer with a stand pivot. He has poor sensation below his waist and now has a neurogenic bowel and bladder. He developed a large pressure ulcer and had a flap. To keep the area clean, it was decided to do a colostomy. He was admitted to [facility] and went to the OR on July 10. He went back to the OR July 11 for a revision colostomy after he developed ischemia and an abdominal wall hematoma. I am asked to assist in pain management. PAST MEDICAL HISTORY: CAD, CKD, MATY, HTN ALLERGIES: Atorvastatin Current Medications Acetaminophen (Tylenol Tab*) 650 mg PO Q6H PRN PRN Reason: FEVER/PAIN Ascorbic Acid (Vitamin C Tab*) 500 mg PO DAILY [facility] Last Admin: 07/12/17 09:05 Dose: 500 mg Cholecalciferol (Vitamin D Tab*) 5,000 units PO DAILY [facility] Last Admin: 07/12/17 09:07 Dose: 5,000 units Clotrimazole (Clotrimazole 1%*) 1 applic TOPICAL DAILY [facility] Last Admin: 07/12/17 14:30 Dose: 1 applic Cyanocobalamin (Vitamin B12 Tab*) 1,000 mcg PO DAILY [facility] Last Admin: 07/12/17 09:06 Dose: 1,000 mcg Fentanyl (Duragesic Patch 75 Mcg/Hr*) 75 mcg TRANSDERM Q72H [facility] Last Admin: 07/12/17 09:14 Dose: 75 mcg Ferrous Gluconate (Fergon Tab*) 324 mg PO DAILY [facility] Last Admin: 07/12/17 09:06 Dose: 324 mg Folic Acid (Folvite Tab*) 0.5 mg PO DAILY [facility] Last Admin: 07/12/17 09:05 Dose: 0.5 mg Furosemide (Lasix Tab*) 40 mg PO 0800,1700 [facility] Last Admin: 07/12/17 18:02 Dose: 40 mg Heparin Sodium (Porcine) (Heparin Vial(*)) 5,000 units SUBCUT Q8HR [facility] Last Admin: 07/12/17 14:21 Dose: 5,000 units Hydralazine HCl (Apresoline Iv*) 5 mg IV SLOW PU Q6H PRN PRN Reason: SYSTOLIC BP GREATER THAN: Hydrocortisone (Hytone Cream 1%*) 1 applic TOPICAL TID [facility] Last Admin: 07/12/17 14:25 Dose: Not Given Hydromorphone HCl (Dilaudid Injic*) 0.5 mg IV SLOW PU Q1H PRN PRN Reason: PAIN Last Admin: 07/12/17 10:55 Dose: 0.5 mg Lactobacillus Rhamnosus (Culturelle*) 1 cap PO DAILY [facility] Last Admin: 07/12/17 09:06 Dose: 1 cap Lisinopril (Prinivil Tab*) 10 mg PO DAILY [facility] Omeprazole (Prilosec Cap*) 40 mg PO DAILY@0700 [facility] Last Admin: 07/12/17 06:58 Dose: 40 mg Oxycodone HCl (Oxycodone Oral.Soln*) 10 mg PO Q4H PRN PRN Reason: PAIN Last Admin: 07/12/17 10:55 Dose: 10 mg Oxycodone HCl (Roxycodone Tab*) 10 mg PO Q4H PRN PRN Reason: PAIN Last Admin: 07/12/17 18:50 Dose: 10 mg Pharmacy Profile Note (Fentanyl Patch Check Q Shift) 1 note N/A 0700,1900 [facility] Last Admin: 07/12/17 18:52 Dose: 1 note Potassium Chloride (Klor Con Er Tab*) 10 meq PO DAILY [facility] Last Admin: 07/12/17 09:05 Dose: 10 meq Pregabalin (Lyrica Cap(*)) 150 mg PO TID [facility] Last Admin: 07/12/17 14:30 Dose: 150 mg Zinc Sulfate (Zinc-220 Cap*) 220 mg PO DAILY [facility] Last Admin: 07/12/17 09:05 Dose: 220 mg Vital Signs Temp Pulse Resp BP Pulse Ox 99.2 F 84 16 157/73 94 07/12/17 15:51 07/12/17 15:51 07/12/17 18:50 07/12/17 15:51 07/12/17 15:51 EXAM: LUNGS: Clear HEART: reg rhythm ABDOMEN: Soft NEUROLOGIC: Decreased sensation in legs. 2/5 hip flexion, trace quads, absent DF and PF ASSESSMENT: 1. 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 Chronic pain secondary to ependymoma PLAN: I will continue the Duragesic 75 mcg/hr. I will try to make the oxycodone 10 mg Q4 while awake. I will see him tomorrow to see how he is doing.
[2017-07-12] MEDS: oxyCODONE TAB* 5 MG TAB PO SCH (20:51)
[2017-07-13] MEDS: oxyCODONE TAB* 5 MG TAB PO SCH ×7 (00:30→20:39)
[2017-07-13] MEDS: hydrALAZINE IV* 20 MG/ML VIAL IV SLOW PU PRN ×2 (04:24→09:47)
[2017-07-13] MEDS: Heparin VIAL(*) 5000 UNITS/ML VIAL (FIVE THOUSAND) SUBCUT SCH ×3 (06:11→22:00)
[2017-07-13 06:33] LABS: ABS Basophils 0.1 10^3/ul (0-0.2); ABS Eosinophils 0.1 10^3/ul (0-0.6); ABS Lymphocytes 1.3 10^3/ul (1.0-4.8); ABS Neutrophils 4.4 10^3/ul (1.5-7.7); ABS Nucleated RBC 0 10^3/ul; Eosinophil % 1.8 % (0-6); Hematocrit 37 % (42-52); Hemoglobin 12.8 g/dl (14.0-18.0); Lymphocyte % 19.1 % (25-47); Mean Corpuscular HGB Conc 35 g/dl (31-36); Mean Corpuscular Hemoglobin 28 pg (27-31); Mean Corpuscular Volume 82 fL (80-94); Mean Platelet Volume 8 um3 (7.4-10.4); Nucleated Red Blood Cells % 0; Platelet Count 227 10^3/ul (150-450); Red Blood Count 4.51 10^6/ul (4.0-5.4); Red Cell Distribution Width 16 % (10.5-15); White Blood Count 6.9 10^3/ul (3.5-10.8)
[2017-07-13 06:48] LABS: EGFR Non-African American 62.7 (>60)
[2017-07-13] MEDS: fentaNYL Patch Check Q Shift 1 NOTE SCH ×2 (06:59→18:38)
[2017-07-13] MEDS: Omeprazole CAP* 20 MG PO SCH (07:49)
[2017-07-13] MEDS: Furosemide TAB* 40 MG PO SCH ×2 (07:49→15:58)
[2017-07-13] MEDS: Hydrocortisone 1% CREAM* 30 GM TUBE TOPICAL SCH ×3 (08:12→20:00)
[2017-07-13] MEDS: Cholecalciferol TAB* 1000 UNITS PO SCH (08:36)
[2017-07-13] MEDS: Ferrous Gluconate TAB* 324 MG TAB PO SCH (08:36)
[2017-07-13] MEDS: Pregabalin CAP(*) 50 MG PO SCH ×3 (08:36→22:06)
[2017-07-13] MEDS: Lisinopril TAB* 10 MG PO SCH (08:36)
[2017-07-13] MEDS: Folic Acid TAB* 1 MG PO SCH (08:36)
[2017-07-13] MEDS: Zinc Sulfate CAP* 220 MG PO SCH (08:36)
[2017-07-13] MEDS: Lactobacillus Acidophilu (GG)* 1 CAP CAP PO SCH (08:37)
[2017-07-13] MEDS: Cyanocobalamin TAB* 500 MCG PO SCH (08:37)
[2017-07-13] MEDS: Ascorbic Acid TAB* 500 MG PO SCH (08:37)
[2017-07-13] MEDS: Potassium Chlor TAB* 10 MEQ TAB.ER PO SCH (08:37)
[2017-07-13] MEDS: Clotrimazole 1% CREAM* 45 GM TOPICAL SCH (08:38)
--- NOTE | 2017-07-13 11:27 | PN ---
Progress Note - Progress Note Date of Service: 07/13/17 Note: Surgery Progress: S: POD #2 &3. No abd pain unless being moved. No N/V. Would like to adv diet. O: Vital Signs - 8 hr 07/13/17 07/13/17 07/13/17 04:18 07:49 08:00 Temperature 98.6 F Pulse Rate 93 Respiratory 16 18 18 Rate Blood Pressure 184/86 (mmHg) O2 Sat by Pulse 96 94 Oximetry 07/13/17 07/13/17 07/13/17 08:08 08:36 09:44 Temperature 99.8 F Pulse Rate 97 Respiratory 16 18 18 Rate Blood Pressure 175/71 (mmHg) O2 Sat by Pulse 94 Oximetry 07/13/17 10:34 Temperature Pulse Rate Respiratory 18 Rate Blood Pressure (mmHg) O2 Sat by Pulse Oximetry Intake and Output Last 24 Hours 03/18 07/12/17 07/13/17 07/14/17 06:59 06:59 06:59 06:59 Intake Total 900 2580 1080 Output Total 575 1550 3300 0 Balance 325 1030 -2220 0 Intake: IV Fluids 1400 LR 1300 NS 50ML, Cefoxitin 2G 50 NS 50ML, Ertopenin 1G 50 Oral 900 1180 1080 Output: Fischer 575 1550 3200 0 Colostomy 0 0 100 Other: Date of Last Bowel colostomy Movement Heart: reg Lungs: clear Abd: +BS; ostomy edematous, pink; some gas in bag as well as clear fluid; soft; mild charlene-ostomy tenderness; remainder nontender A: s/p diverting end-sigmoid colostomy w/ revision on POD #1 for ischemia 2/2 abd wall hematoma; doing well at this point P: will advance diet; med mgmt per hosp; pain mgmt per Dr. aCstro
[2017-07-13] MEDS: oxyCODONE ORAL.SOLN* 5 MG/5 ML UDC PO PRN ×2 (11:28→17:20)
[2017-07-13] MEDS: Acetaminophen TAB* 325 MG PO PRN (15:57)
--- NOTE | 2017-07-13 21:29 | PN ---
Subjective Date of Service: 07/13/17 Interval History: Patient's pain improved with scheduled oxycodone and PRN liquid oxycodone as before. Pain persists and occasionally severe in abdomen and back. Patient doesn 't like to express this per , but get agitated when in significant pain. Family had questions about colostomy which were answered. Denies F/C, N/V, CP, SOB, or other pain. Family History: Unchanged from Admission Social History: Unchanged from Admission Past Medical History: Unchanged from Admission Objective Active Medications: Acetaminophen (Tylenol Tab*) 650 mg PO Q6H PRN PRN Reason: FEVER/PAIN Last Admin: 07/13/17 15:57 Dose: 650 mg Ascorbic Acid (Vitamin C Tab*) 500 mg PO DAILY [facility] Last Admin: 07/13/17 08:37 Dose: 500 mg Cholecalciferol (Vitamin D Tab*) 5,000 units PO DAILY [facility] Last Admin: 07/13/17 08:36 Dose: 5,000 units Clotrimazole (Clotrimazole 1%*) 1 applic TOPICAL DAILY [facility] Last Admin: 07/13/17 08:38 Dose: 1 applic Cyanocobalamin (Vitamin B12 Tab*) 1,000 mcg PO DAILY [facility] Last Admin: 07/13/17 08:37 Dose: 1,000 mcg Fentanyl (Duragesic Patch 75 Mcg/Hr*) 75 mcg TRANSDERM Q72H [facility] Last Admin: 07/12/17 09:14 Dose: 75 mcg Ferrous Gluconate (Fergon Tab*) 324 mg PO DAILY [facility] Last Admin: 07/13/17 08:36 Dose: 324 mg Folic Acid (Folvite Tab*) 0.5 mg PO DAILY [facility] Last Admin: 07/13/17 08:36 Dose: 0.5 mg Furosemide (Lasix Tab*) 40 mg PO 0800,1700 [facility] Last Admin: 07/13/17 15:58 Dose: 40 mg Heparin Sodium (Porcine) (Heparin Vial(*)) 5,000 units SUBCUT Q8HR [facility] Last Admin: 07/13/17 13:59 Dose: 5,000 units Hydralazine HCl (Apresoline Iv*) 5 mg IV SLOW PU Q6H PRN PRN Reason: SYSTOLIC BP GREATER THAN: Last Admin: 07/13/17 09:47 Dose: 5 mg Hydrocortisone (Hytone Cream 1%*) 1 applic TOPICAL TID [facility] Last Admin: 07/13/17 20:00 Dose: Not Given Hydromorphone HCl (Dilaudid Injic*) 0.5 mg IV SLOW PU Q1H PRN PRN Reason: PAIN Last Admin: 07/12/17 10:55 Dose: 0.5 mg Lactobacillus Rhamnosus (Culturelle*) 1 cap PO DAILY [facility] Last Admin: 07/13/17 08:37 Dose: 1 cap Lisinopril (Prinivil Tab*) 10 mg PO DAILY [facility] Last Admin: 07/13/17 08:36 Dose: 10 mg Omeprazole (Prilosec Cap*) 40 mg PO DAILY@0700 [facility] Last Admin: 07/13/17 07:49 Dose: 40 mg Oxycodone HCl (Oxycodone Oral.Soln*) 10 mg PO Q4H PRN PRN Reason: PAIN Last Admin: 07/13/17 17:20 Dose: 10 mg Oxycodone HCl (Roxycodone Tab*) 10 mg PO Q4H [facility] Last Admin: 07/13/17 20:39 Dose: 10 mg Pharmacy Profile Note (Fentanyl Patch Check Q Shift) 1 note N/A 0700,1900 [facility] Last Admin: 07/13/17 18:38 Dose: 1 note Potassium Chloride (Klor Con Er Tab*) 10 meq PO DAILY [facility] Last Admin: 07/13/17 08:37 Dose: 10 meq Pregabalin (Lyrica Cap(*)) 150 mg PO TID [facility] Last Admin: 07/13/17 13:59 Dose: 150 mg Zinc Sulfate (Zinc-220 Cap*) 220 mg PO DAILY [facility] Last Admin: 07/13/17 08:36 Dose: 220 mg Vital Signs - 8 hr 07/13/17 07/13/17 07/13/17 13:28 13:59 15:46 Temperature 100.4 F Pulse Rate 109 Respiratory 18 18 16 Rate Blood Pressure 146/68 (mmHg) O2 Sat by Pulse 92 Oximetry 07/13/17 07/13/17 07/13/17 15:57 15:58 16:00 Temperature Pulse Rate Respiratory 18 18 Rate Blood Pressure (mmHg) O2 Sat by Pulse 92 Oximetry 07/13/17 07/13/17 07/13/17 17:20 17:51 19:56 Temperature 98.3 F Pulse Rate 89 Respiratory 18 18 16 Rate Blood Pressure 119/52 (mmHg) O2 Sat by Pulse 93 Oximetry 07/13/17 07/13/17 07/13/17 19:57 20:00 20:01 Temperature Pulse Rate Respiratory 16 18 18 Rate Blood Pressure (mmHg) O2 Sat by Pulse Oximetry 07/13/17 20:39 Temperature Pulse Rate Respiratory 18 Rate Blood Pressure (mmHg) O2 Sat by Pulse Oximetry Oxygen Devices in Use Now: None Appearance: Patient is a 71yo male who appears stated age and is sitting in the bed in NAD. Eyes: No Scleral Icterus, PERRLA Ears/Nose/Mouth/Throat: NL Teeth, Lips, Gums, Clear Oropharnyx, Mucous Membranes Moist Neck: NL Appearance and Movements; NL JVP, Trachea Midline Respiratory: Symmetrical Chest Expansion and Respiratory Effort, Clear to Auscultation Cardiovascular: NL Sounds; No Murmurs; No JVD, RRR, - - Trace edema in B/L LE. Abdominal: No Hepatosplenomegaly - Abdominal pain to palpation, normoactive BS. Laparoscopic surgical incisons with steri-strips. Ostomy pink and draining liquid stool. Lymphatic: No Cervical Adenopathy Extremities: No Clubbing, Cyanosis Skin: - - No change in Flap appearance. Neurological: Alert and Oriented x 3, - - CN II-XII intact. Insensate and paralyzed from the waist down. Result Diagrams: 07/13/17 06:02 07/13/17 06:02 Assess/Plan/Problems-Billing Assessment: Patient is a 71yo male with a PMH significant for Ependymoma with several surgeries, Sacral Decubitus Ulcer with underlying sacral osteomyelitis status post flap who presents for diverting colostomy to aid in the healing of his ulcer, which he tolerated well. - Patient Problems (1) Chronic back pain Current Visit: No Status: Chronic Code(s): M54.9 - DORSALGIA, UNSPECIFIED; G89.29 - OTHER CHRONIC PAIN SNOMED Code(s): 699785709 Comment: Secondary to ependymoma. Appreciate pain management input. Continue pregabalin, acetaminophen, oxycodone liquid 10mg q4h PRN, Oxycodone 10mg PO Q4H scheduled while awake and Fentanyl patch at 75mcg. Improved. (2) Chronic diarrhea Current Visit: No Status: Acute Code(s): K52.9 - NONINFECTIVE GASTROENTERITIS AND COLITIS, UNSPECIFIED SNOMED Code(s): 323964086 Comment: S/P diverting colostomy with revision. POD#3 and #2 respectively. Appreciate General Surgery. Liquid green fluid draining into colostomy. (3) Acute osteomyelitis of sacrum Current Visit: No Status: Acute Priority: High Code(s): M46.28 - OSTEOMYELITIS OF VERTEBRA, SACRAL AND SACROCOCCYGEAL REGION SNOMED Code(s): 164605048 Comment: s/p debridement at time of flap creation at [facility] Completed antibiotics 06/13 No change in appearance since before last D/C. (4) S/P flap graft Current Visit: No Status: Acute Priority: High Code(s): Z98.890 - OTHER SPECIFIED POSTPROCEDURAL STATES SNOMED Code(s): 180991015 Comment: 05/02/2017 at [facility] over large sacral defect Small open area being treated with Medihoney and gauze which is nearly healed up to chair max 2hrs, three times daily Graft shows no signs of deterioration. (5) Tinea corporis Current Visit: No Status: Acute Code(s): B35.4 - TINEA CORPORIS SNOMED Code(s): 61275894 Comment: Resolved (6) Chronic indwelling Fischer catheter Current Visit: No Status: Chronic Priority: High Code(s): Z92.89 - PERSONAL HISTORY OF OTHER MEDICAL TREATMENT SNOMED Code(s): 922903052 Comment: Secondary to neurogenic bladder No signs of UTI (7) MATY (obstructive sleep apnea) Current Visit: No Status: Chronic Code(s): G47.33 - OBSTRUCTIVE SLEEP APNEA (ADULT) (PEDIATRIC) SNOMED Code(s): 67169028 Comment: Does not wear bipap, states he cannot get a good seal on mask. (8) HTN (hypertension) Current Visit: No Status: Chronic Code(s): I10 - ESSENTIAL (PRIMARY) HYPERTENSION SNOMED Code(s): 01931750 Comment: Intermittenly hypertensive. Now normotensive. Continue lasix and increase Lisinopril for HTN and renal protection. Hydralazine PRN. (9) Hypokalemia Current Visit: Yes Status: Acute Code(s): E87.6 - HYPOKALEMIA SNOMED Code( s): 52090232 Comment: Resolved, continue supplementation. (10) Full code status Current Visit: No Status: Acute Code(s): Z78.9 - OTHER SPECIFIED HEALTH STATUS SNOMED Code(s): 897935109 Comment: (11) DVT prophylaxis Current Visit: No Status: Acute Code(s): ZRS7731 - SNOMED Code(s): 697102890 Comment: - Lovenox, SCDs Status and Disposition: Patient is admitted inpatient. Will discharge when able to resume home routine.
[2017-07-14] MEDS: oxyCODONE TAB* 5 MG TAB PO SCH ×7 (00:08→20:10)
[2017-07-14] MEDS: Heparin VIAL(*) 5000 UNITS/ML VIAL (FIVE THOUSAND) SUBCUT SCH ×3 (05:59→21:38)
[2017-07-14 06:25] LABS: ABS Basophils 0.1 10^3/ul (0-0.2); ABS Eosinophils 0.4 10^3/ul (0-0.6); ABS Monocytes 1.2 10^3/ul (0-0.8); ABS Neutrophils 2.5 10^3/ul (1.5-7.7); ABS Nucleated RBC 0 10^3/ul; Eosinophil % 4.9 % (0-6); Hematocrit 38 % (42-52); Hemoglobin 12.8 g/dl (14.0-18.0); Lymphocyte % 41.6 % (25-47); Mean Corpuscular HGB Conc 34 g/dl (31-36); Mean Corpuscular Hemoglobin 28 pg (27-31); Mean Corpuscular Volume 82 fL (80-94); Mean Platelet Volume 8 um3 (7.4-10.4); Nucleated Red Blood Cells % 0.1; Platelet Count 245 10^3/ul (150-450); Red Blood Count 4.64 10^6/ul (4.0-5.4); Red Cell Distribution Width 16 % (10.5-15); White Blood Count 7.2 10^3/ul (3.5-10.8)
[2017-07-14] MEDS: Omeprazole CAP* 20 MG PO SCH (07:10)
[2017-07-14] MEDS: fentaNYL Patch Check Q Shift 1 NOTE SCH ×3 (07:10→19:21)
[2017-07-14] MEDS: Furosemide TAB* 40 MG PO SCH ×2 (07:57→19:57)
[2017-07-14] MEDS: Folic Acid TAB* 1 MG PO SCH (09:27)
[2017-07-14] MEDS: Pregabalin CAP(*) 50 MG PO SCH ×3 (09:28→21:37)
[2017-07-14] MEDS: Lactobacillus Acidophilu (GG)* 1 CAP CAP PO SCH (09:30)
[2017-07-14] MEDS: Potassium Chlor TAB* 10 MEQ TAB.ER PO SCH (09:30)
[2017-07-14] MEDS: Cyanocobalamin TAB* 500 MCG PO SCH (09:30)
[2017-07-14] MEDS: Lisinopril TAB* 10 MG PO SCH (09:31)
[2017-07-14] MEDS: Zinc Sulfate CAP* 220 MG PO SCH (09:31)
[2017-07-14] MEDS: Ferrous Gluconate TAB* 324 MG TAB PO SCH (09:33)
[2017-07-14] MEDS: Cholecalciferol TAB* 1000 UNITS PO SCH (09:33)
[2017-07-14] MEDS: Ascorbic Acid TAB* 500 MG PO SCH (09:33)
[2017-07-14] MEDS: Hydrocortisone 1% CREAM* 30 GM TUBE TOPICAL SCH ×3 (09:34→21:38)
[2017-07-14] MEDS: Clotrimazole 1% CREAM* 45 GM TOPICAL SCH (09:34)
[2017-07-14] MEDS: oxyCODONE ORAL.SOLN* 5 MG/5 ML UDC PO PRN ×2 (09:39→12:55)
--- NOTE | 2017-07-14 10:54 | PN ---
Progress Note - Progress Note Date of Service: 07/14/17 SOAP: Subjective: Pt seen and examined. feeling well. NO abdo pain. appetite improving Objective: af abdo: soft/ ND/ NT colostomy: pink, edematous, positive flatus, stool-liquid no calf tenderness Assessment: POD 4/3 lap sigmoid colostomy, and takeback for revision; doing well pt needs PT according to family and hosp service Plan: no additional surgical intervention plan as per hospitalist/PT
--- NOTE | 2017-07-14 16:44 | PN ---
Subjective Date of Service: 07/14/17 Interval History: Patient seen and examined, son at bedside. Had been OOB earlier, tolerated well. Denies any acute complaints. No chest pain, no SOB, no abdominal pain, no nausea or vomiting. Tolerating PO. Family History: Unchanged from Admission Social History: Unchanged from Admission Past Medical History: Unchanged from Admission Objective Active Medications: Acetaminophen (Tylenol Tab*) 650 mg PO Q6H PRN PRN Reason: FEVER/PAIN Last Admin: 07/13/17 15:57 Dose: 650 mg Ascorbic Acid (Vitamin C Tab*) 500 mg PO DAILY [facility] Last Admin: 07/14/17 09:33 Dose: 500 mg Cholecalciferol (Vitamin D Tab*) 5,000 units PO DAILY [facility] Last Admin: 07/14/17 09:33 Dose: 5,000 units Clotrimazole (Clotrimazole 1%*) 1 applic TOPICAL DAILY [facility] Last Admin: 07/14/17 09:34 Dose: 1 applic Cyanocobalamin (Vitamin B12 Tab*) 1,000 mcg PO DAILY [facility] Last Admin: 07/14/17 09:30 Dose: 1,000 mcg Fentanyl (Duragesic Patch 75 Mcg/Hr*) 75 mcg TRANSDERM Q72H [facility] Last Admin: 07/12/17 09:14 Dose: 75 mcg Ferrous Gluconate (Fergon Tab*) 324 mg PO DAILY [facility] Last Admin: 07/14/17 09:33 Dose: 324 mg Folic Acid (Folvite Tab*) 0.5 mg PO DAILY [facility] Last Admin: 07/14/17 09:27 Dose: Not Given Furosemide (Lasix Tab*) 40 mg PO 0800,1700 [facility] Last Admin: 07/14/17 07:57 Dose: 40 mg Heparin Sodium (Porcine) (Heparin Vial(*)) 5,000 units SUBCUT Q8HR [facility] Last Admin: 07/14/17 14:04 Dose: 5,000 units Hydralazine HCl (Apresoline Iv*) 5 mg IV SLOW PU Q6H PRN PRN Reason: SYSTOLIC BP GREATER THAN: Last Admin: 07/13/17 09:47 Dose: 5 mg Hydrocortisone (Hytone Cream 1%*) 1 applic TOPICAL TID [facility] Last Admin: 07/14/17 14:05 Dose: Not Given Lactobacillus Rhamnosus (Culturelle*) 1 cap PO DAILY [facility] Last Admin: 07/14/17 09:30 Dose: 1 cap Lisinopril (Prinivil Tab*) 10 mg PO DAILY [facility] Last Admin: 07/14/17 09:31 Dose: 10 mg Omeprazole (Prilosec Cap*) 40 mg PO DAILY@0700 [facility] Last Admin: 07/14/17 07:10 Dose: 40 mg Oxycodone HCl (Oxycodone Oral.Soln*) 10 mg PO Q4H PRN PRN Reason: PAIN Last Admin: 07/14/17 12:55 Dose: 10 mg Oxycodone HCl (Roxycodone Tab*) 10 mg PO Q4H [facility] Last Admin: 07/14/17 16:25 Dose: 10 mg Pharmacy Profile Note (Fentanyl Patch Check Q Shift) 1 note N/A 0700,1900 [facility] Last Admin: 07/14/17 16:23 Dose: 1 note Potassium Chloride (Klor Con Er Tab*) 10 meq PO DAILY [facility] Last Admin: 07/14/17 09:30 Dose: 10 meq Pregabalin (Lyrica Cap(*)) 150 mg PO TID [facility] Last Admin: 07/14/17 14:05 Dose: 150 mg Zinc Sulfate (Zinc-220 Cap*) 220 mg PO DAILY [facility] Last Admin: 07/14/17 09:31 Dose: 220 mg Vital Signs - 8 hr 07/14/17 07/14/17 07/14/17 09:28 09:37 09:39 Temperature Pulse Rate Respiratory 17 15 17 Rate Blood Pressure (mmHg) O2 Sat by Pulse Oximetry 07/14/17 07/14/17 07/14/17 11:29 12:15 12:16 Temperature 98.3 F Pulse Rate 88 Respiratory 16 17 16 Rate Blood Pressure 131/49 (mmHg) O2 Sat by Pulse 97 Oximetry 07/14/17 07/14/17 07/14/17 12:38 12:55 14:05 Temperature Pulse Rate Respiratory 17 17 17 Rate Blood Pressure (mmHg) O2 Sat by Pulse Oximetry 07/14/17 07/14/17 07/14/17 15:15 15:18 16:13 Temperature 99.4 F Pulse Rate 92 Respiratory 18 16 16 Rate Blood Pressure 108/68 (mmHg) O2 Sat by Pulse 95 Oximetry 07/14/17 16:25 Temperature Pulse Rate Respiratory 18 Rate Blood Pressure (mmHg) O2 Sat by Pulse Oximetry Oxygen Devices in Use Now: None Appearance: Alert, NAD Eyes: PERRLA Ears/Nose/Mouth/Throat: Mucous Membranes Moist Neck: NL Appearance and Movements; NL JVP, Trachea Midline Respiratory: Symmetrical Chest Expansion and Respiratory Effort, Clear to Auscultation Cardiovascular: NL Sounds; No Murmurs; No JVD, RRR Abdominal: NL Sounds; No Tenderness; No Distention - diverting colostomy, trochar wounds with steri strips intact Skin: - - did not visualize flap, as patient had just been turned. Per notes, graft is intact with two small open areas Neurological: Alert and Oriented x 3 Result Diagrams: 07/14/17 06:01 07/14/17 06:09 Assess/Plan/Problems-Billing Assessment: Patient is a 71yo male with a PMH significant for Ependymoma with multiple surgeries, Sacral Decubitus Ulcer with underlying sacral osteomyelitis status post flap who presents for diverting colostomy to aid in the healing of his ulcer. - Patient Problems (1) Acute osteomyelitis of sacrum Code(s): M46.28 - OSTEOMYELITIS OF VERTEBRA, SACRAL AND SACROCOCCYGEAL REGION SNOMED Code(s): 294876211 Comment: - s/p debridement at time of flap creation at [facility] - Completed antibiotics 06/13 - No change in appearance since before last D/C (2) Chronic back pain Code(s): M54.9 - DORSALGIA, UNSPECIFIED; G89.29 - OTHER CHRONIC PAIN SNOMED Code(s): 686438159 Comment: - Secondary to ependymoma - Pain management following - Continue pregabalin, acetaminophen, oxycodone liquid 10mg q4h PRN, Oxycodone 10mg PO Q4H scheduled while awake and Fentanyl patch at 75mcg. - Stable (3) Chronic indwelling Fischer catheter Code(s): Z92.89 - PERSONAL HISTORY OF OTHER MEDICAL TREATMENT SNOMED Code(s): 036878593 Comment: - Secondary to neurogenic bladder - No signs of UTI (4) Ependymoma Code(s): C71.9 - MALIGNANT NEOPLASM OF BRAIN, UNSPECIFIED SNOMED Code(s): 633921662 Comment: - Wheelchair bound - High risk for continued back pain, decompensation, pressure wounds and UTIs - Supportive care (5) Neurogenic bladder Code(s): N31.9 - NEUROMUSCULAR DYSFUNCTION OF BLADDER, UNSPECIFIED SNOMED Code (s): 820477208 Comment: - Fischer care (6) Neurogenic bowel Code(s): K59.2 - NEUROGENIC BOWEL, NOT ELSEWHERE CLASSIFIED SNOMED Code(s): 404367305 Comment: - S/P diverting colostomy to prevent further skin breakdown (7) Paraplegia Code(s): G82.20 - PARAPLEGIA, UNSPECIFIED SNOMED Code(s): 36789364 Comment: - OOB to chair TID up to 2 hours each session - Trapeze and shellie lift (8) S/P flap graft Code(s): Z98.890 - OTHER SPECIFIED POSTPROCEDURAL STATES SNOMED Code(s): 685407946 Comment: - Graft completed 05/02/17 at [facility] - Continue medihoney for 2 small open areas - Graft intact - Reposition Q2h - OOB TID for up to 2 hours as chandler Status and Disposition: Remain inpatient. DC to home when clear by surgery. Counseling and/or Coordination of Care Minutes: coordinated with patient and staff
[2017-07-15] MEDS ORDERED: NS 0.9% IV ONE (00:30)
[2017-07-15] MEDS: oxyCODONE TAB* 5 MG TAB PO SCH ×7 (00:40→20:24)
[2017-07-15] MEDS: Heparin VIAL(*) 5000 UNITS/ML VIAL (FIVE THOUSAND) SUBCUT SCH ×3 (05:39→22:48)
[2017-07-15] MEDS: Omeprazole CAP* 20 MG PO SCH (06:44)
[2017-07-15] MEDS: fentaNYL Patch Check Q Shift 1 NOTE SCH ×2 (06:44→18:48)
[2017-07-15] MEDS: fentaNYL PATCH 75 MCG/HR* 75 MCG TRANSDERM SCH (08:40)
[2017-07-15] MEDS: Potassium Chlor TAB* 10 MEQ TAB.ER PO SCH (08:44)
[2017-07-15] MEDS: Cholecalciferol TAB* 1000 UNITS PO SCH (08:44)
[2017-07-15] MEDS: Folic Acid TAB* 1 MG PO SCH (08:44)
[2017-07-15] MEDS: Lactobacillus Acidophilu (GG)* 1 CAP CAP PO SCH (08:44)
[2017-07-15] MEDS: Furosemide TAB* 40 MG PO SCH ×2 (08:44→17:58)
[2017-07-15] MEDS: Lisinopril TAB* 10 MG PO SCH (08:44)
[2017-07-15] MEDS: Ascorbic Acid TAB* 500 MG PO SCH (08:44)
[2017-07-15] MEDS: Cyanocobalamin TAB* 500 MCG PO SCH (08:45)
[2017-07-15] MEDS: Zinc Sulfate CAP* 220 MG PO SCH (08:45)
[2017-07-15] MEDS: Pregabalin CAP(*) 50 MG PO SCH ×2 (08:45→14:06)
[2017-07-15] MEDS: oxyCODONE ORAL.SOLN* 5 MG/5 ML UDC PO PRN ×3 (08:45→18:46)
[2017-07-15] MEDS: Ferrous Gluconate TAB* 324 MG TAB PO SCH (08:45)
--- NOTE | 2017-07-15 09:04 | PN ---
Subjective Date of Service: 07/15/17 Interval History: Patient seen and examined. Events of last night noted, patient had episodes of hypotension and slow respirations. Patient does not have his CPAP from home, also had several doses of long acting oxy yesterday. BP stable this AM as are respirations. Patient states pain is 3/10 at present, denies cough, SOB or chest pain, no N/V, ostomy is producing/functioning without issue, arriaga is functioning, he is tolerating PO. No further complaints. Family History: Unchanged from Admission Social History: Unchanged from Admission Past Medical History: Unchanged from Admission Objective Active Medications: Acetaminophen (Tylenol Tab*) 650 mg PO Q6H PRN PRN Reason: FEVER/PAIN Last Admin: 07/13/17 15:57 Dose: 650 mg Ascorbic Acid (Vitamin C Tab*) 500 mg PO DAILY [facility] Last Admin: 07/15/17 08:44 Dose: 500 mg Cholecalciferol (Vitamin D Tab*) 5,000 units PO DAILY [facility] Last Admin: 07/15/17 08:44 Dose: 5,000 units Clotrimazole (Clotrimazole 1%*) 1 applic TOPICAL DAILY [facility] Last Admin: 07/14/17 09:34 Dose: 1 applic Cyanocobalamin (Vitamin B12 Tab*) 1,000 mcg PO DAILY [facility] Last Admin: 07/15/17 08:45 Dose: 1,000 mcg Fentanyl (Duragesic Patch 75 Mcg/Hr*) 75 mcg TRANSDERM Q72H [facility] Last Admin: 07/15/17 08:40 Dose: 75 mcg Ferrous Gluconate (Fergon Tab*) 324 mg PO DAILY [facility] Last Admin: 07/15/17 08:45 Dose: 324 mg Folic Acid (Folvite Tab*) 0.5 mg PO DAILY [facility] Last Admin: 07/15/17 08:44 Dose: 0.5 mg Furosemide (Lasix Tab*) 40 mg PO 0800,1700 [facility] Last Admin: 07/15/17 08:44 Dose: 40 mg Heparin Sodium (Porcine) (Heparin Vial(*)) 5,000 units SUBCUT Q8HR [facility] Last Admin: 07/15/17 05:39 Dose: 5,000 units Hydralazine HCl (Apresoline Iv*) 5 mg IV SLOW PU Q6H PRN PRN Reason: SYSTOLIC BP GREATER THAN: Last Admin: 07/13/17 09:47 Dose: 5 mg Hydrocortisone (Hytone Cream 1%*) 1 applic TOPICAL TID [facility] Last Admin: 07/14/17 21:38 Dose: 1 applic Lactobacillus Rhamnosus (Culturelle*) 1 cap PO DAILY [facility] Last Admin: 07/15/17 08:44 Dose: 1 cap Lisinopril (Prinivil Tab*) 10 mg PO DAILY [facility] Last Admin: 07/15/17 08:44 Dose: 10 mg Omeprazole (Prilosec Cap*) 40 mg PO DAILY@0700 [facility] Last Admin: 07/15/17 06:44 Dose: 40 mg Oxycodone HCl (Oxycodone Oral.Soln*) 10 mg PO Q4H PRN PRN Reason: PAIN Last Admin: 07/15/17 08:45 Dose: 10 mg Oxycodone HCl (Roxycodone Tab*) 10 mg PO Q4H [facility] Last Admin: 07/15/17 04:48 Dose: Not Given Pharmacy Profile Note (Fentanyl Patch Check Q Shift) 1 note N/A 0700,1900 [facility] Last Admin: 07/15/17 06:44 Dose: 1 note Potassium Chloride (Klor Con Er Tab*) 10 meq PO DAILY [facility] Last Admin: 07/15/17 08:44 Dose: 10 meq Pregabalin (Lyrica Cap(*)) 150 mg PO TID [facility] Last Admin: 07/15/17 08:45 Dose: 150 mg Zinc Sulfate (Zinc-220 Cap*) 220 mg PO DAILY [facility] Last Admin: 07/15/17 08:45 Dose: 220 mg Vital Signs - 8 hr 07/15/17 07/15/17 07/15/17 01:15 01:47 03:43 Temperature 98.2 F Pulse Rate 77 Respiratory 10 14 Rate Blood Pressure 118/62 93/49 (mmHg) O2 Sat by Pulse 98 Oximetry 07/15/17 07/15/17 07/15/17 04:48 07:21 07:41 Temperature 98.1 F 98.5 F Pulse Rate 73 72 Respiratory 14 17 10 Rate Blood Pressure 113/53 143/53 (mmHg) O2 Sat by Pulse 96 93 Oximetry 07/15/17 07/15/17 07:51 08:45 Temperature Pulse Rate Respiratory 11 12 Rate Blood Pressure (mmHg) O2 Sat by Pulse Oximetry Oxygen Devices in Use Now: None Appearance: Alert, NAD Eyes: PERRLA Ears/Nose/Mouth/Throat: NL Teeth, Lips, Gums, Mucous Membranes Moist Neck: Trachea Midline Respiratory: Symmetrical Chest Expansion and Respiratory Effort, Clear to Auscultation Cardiovascular: NL Sounds; No Murmurs; No JVD, RRR Abdominal: NL Sounds; No Tenderness; No Distention - colostomy functioning, gas and liquid feces in bag Extremities: No Edema, No Clubbing, Cyanosis Skin: - - flap wound intact, granulating tissue in two small open areas at sacrum, no exudate Neurological: Alert and Oriented x 3 Nutrition: Taking PO's Result Diagrams: 07/14/17 06:01 07/14/17 06:09 Assess/Plan/Problems-Billing Assessment: Patient is a 71yo male with a PMH significant for Ependymoma with multiple surgeries, Sacral Decubitus Ulcer with underlying sacral osteomyelitis status post flap who presents for diverting colostomy to aid in the healing of his ulcer. - Patient Problems (1) Acute osteomyelitis of sacrum Code(s): M46.28 - OSTEOMYELITIS OF VERTEBRA, SACRAL AND SACROCOCCYGEAL REGION SNOMED Code(s): 834051377 Comment: - s/p debridement at time of flap creation at [facility] - Completed antibiotics 06/13 - stable (2) Chronic back pain Code(s): M54.9 - DORSALGIA, UNSPECIFIED; G89.29 - OTHER CHRONIC PAIN SNOMED Code(s): 231169096 Comment: - Secondary to ependymoma - Pain management following - Continue pregabalin, acetaminophen, oxycodone liquid 10mg q4h PRN, and Fentanyl patch at 75mcg. - Hold Oxycodone 10mg PO Q4H scheduled while awake 2/2 hypotension - Stable (3) Chronic indwelling Arriaga catheter Code(s): Z92.89 - PERSONAL HISTORY OF OTHER MEDICAL TREATMENT SNOMED Code(s): 263783692 Comment: - Secondary to neurogenic bladder - No signs of UTI (4) Ependymoma Code(s): C71.9 - MALIGNANT NEOPLASM OF BRAIN, UNSPECIFIED SNOMED Code(s): 702366762 Comment: - Wheelchair bound - High risk for continued back pain, decompensation, pressure wounds and UTIs - Supportive care (5) Neurogenic bladder Code(s): N31.9 - NEUROMUSCULAR DYSFUNCTION OF BLADDER, UNSPECIFIED SNOMED Code (s): 598774810 Comment: - Arriaga care (6) Neurogenic bowel Code(s): K59.2 - NEUROGENIC BOWEL, NOT ELSEWHERE CLASSIFIED SNOMED Code(s): 068286783 Comment: - S/P diverting colostomy to prevent further skin breakdown - Cleared per surgery (7) Paraplegia Code(s): G82.20 - PARAPLEGIA, UNSPECIFIED SNOMED Code(s): 96509967 Comment: - OOB to chair TID up to 2 hours each session - Trapeze and shellie lift (8) S/P flap graft Code(s): Z98.890 - OTHER SPECIFIED POSTPROCEDURAL STATES SNOMED Code(s): 942261478 Comment: - Graft completed 05/02/[address] [facility] - Continue medihoney for 2 small open areas - Graft intact - Reposition Q2h - OOB TID for up to 2 hours as chandler Status and Disposition: Remain inpatient, reinforce PT and DC home. Counseling and/or Coordination of Care Minutes: coordinated with patient, staff and Dr. Vegas
[2017-07-15] MEDS: Clotrimazole 1% CREAM* 45 GM TOPICAL SCH (10:58)
[2017-07-15] MEDS: Hydrocortisone 1% CREAM* 30 GM TUBE TOPICAL SCH ×3 (10:58→22:49)
[2017-07-16] MEDS: oxyCODONE TAB* 5 MG TAB PO SCH ×6 (01:09→21:00)
[2017-07-16] MEDS: Pregabalin CAP(*) 50 MG PO SCH ×4 (01:10→21:42)
[2017-07-16] MEDS: Heparin VIAL(*) 5000 UNITS/ML VIAL (FIVE THOUSAND) SUBCUT SCH ×3 (06:14→21:41)
[2017-07-16] MEDS: Omeprazole CAP* 20 MG PO SCH (06:14)
[2017-07-16] MEDS: fentaNYL Patch Check Q Shift 1 NOTE SCH ×2 (06:42→18:41)
[2017-07-16] MEDS: oxyCODONE ORAL.SOLN* 5 MG/5 ML UDC PO PRN (08:10)
[2017-07-16] MEDS: Furosemide TAB* 40 MG PO SCH ×2 (08:14→16:47)
--- NOTE | 2017-07-16 09:04 | PN ---
Progress Note - Progress Note Date of Service: 07/16/17 SOAP: Subjective: Patient seen and examined with and son at bedside. Reports low back pain, intermittent, worse with prolonged sitting. Denies abdominal pain, nausea or vomiting. Appetite is better, stoma is working. Objective: Awake and alert, sitting on his motorized chair, in NAD VSS, Tmax 99.1 Abdomen soft, NT, ND Stoma viable with output of liquid brown stool No hernias noted Ext. without edema Assessment: POD#6, s/p diagnostic laparoscopy with diverting colostomy, stable Plan: Maintain soft diet, may consider adding boost for nutrition supplements with meals Stable from a surgical standpoint D/C plans per medicine
[2017-07-16] MEDS: Hydrocortisone 1% CREAM* 30 GM TUBE TOPICAL SCH ×3 (09:30→21:43)
[2017-07-16] MEDS: Clotrimazole 1% CREAM* 45 GM TOPICAL SCH (09:30)
[2017-07-16] MEDS ORDERED: NS 0.9% 500 ML* 500 ML IV ONE ×2 (10:07→16:35)
[2017-07-16 11:35] LABS: ABS Basophils 0.1 10^3/ul (0-0.2); ABS Eosinophils 0.2 10^3/ul (0-0.6); ABS Lymphocytes 1.8 10^3/ul (1.0-4.8); ABS Monocytes 1.3 10^3/ul (0-0.8); ABS Neutrophils 5.7 10^3/ul (1.5-7.7); ABS Nucleated RBC 0 10^3/ul; Eosinophil % 2.4 % (0-6); Hematocrit 39 % (42-52); Hemoglobin 13.1 g/dl (14.0-18.0); Lymphocyte % 19.4 % (25-47); Mean Corpuscular HGB Conc 33 g/dl (31-36); Mean Corpuscular Hemoglobin 28 pg (27-31); Mean Corpuscular Volume 83 fL (80-94); Mean Platelet Volume 8 um3 (7.4-10.4); Nucleated Red Blood Cells % 0; Platelet Count 274 10^3/ul (150-450); Red Blood Count 4.76 10^6/ul (4.0-5.4); Red Cell Distribution Width 16 % (10.5-15); White Blood Count 9.1 10^3/ul (3.5-10.8)
[2017-07-16 11:45] LABS: Urine Appearance Cloudy; Urine Blood Negative (Negative); Urine Color Straw; Urine Ketones Negative (Negative); Urine Protein Negative (Negative); Urine Specific Gravity 1.006 (1.010-1.030); Urine Urobilinogen Negative (Negative)
[2017-07-16 11:50] LABS: EGFR Non-African American 44.8 (>60)
[2017-07-16] MEDS: Lisinopril TAB* 10 MG PO SCH (13:39)
[2017-07-16] MEDS: Folic Acid TAB* 1 MG PO SCH (13:39)
[2017-07-16] MEDS: Cyanocobalamin TAB* 500 MCG PO SCH (13:39)
[2017-07-16] MEDS: Ascorbic Acid TAB* 500 MG PO SCH (13:40)
[2017-07-16] MEDS: Cholecalciferol TAB* 1000 UNITS PO SCH (13:40)
[2017-07-16] MEDS: Lactobacillus Acidophilu (GG)* 1 CAP CAP PO SCH (13:40)
[2017-07-16] MEDS: Potassium Chlor TAB* 10 MEQ TAB.ER PO SCH (13:41)
[2017-07-16] MEDS: Ferrous Gluconate TAB* 324 MG TAB PO SCH (13:41)
[2017-07-16] MEDS: Zinc Sulfate CAP* 220 MG PO SCH (13:41)
[2017-07-16] MEDS ORDERED: cefTRIAXone(*) 1 GM in NS 0.9% 50 ML* 50 ML IVPB SCH (17:30)
[2017-07-16] MEDS ORDERED: NS 0.9% 1000 ML* 1,000 ML IV ONE (22:54)
[2017-07-17] MEDS: oxyCODONE TAB* 5 MG TAB PO SCH ×6 (00:30→22:10)
[2017-07-17] MEDS: Heparin VIAL(*) 5000 UNITS/ML VIAL (FIVE THOUSAND) SUBCUT SCH ×3 (05:47→22:21)
[2017-07-17] MEDS: Omeprazole CAP* 20 MG PO SCH ×2 (05:48→06:16)
[2017-07-17 06:24] LABS: ABS Basophils 0.1 10^3/ul (0-0.2); ABS Eosinophils 0.2 10^3/ul (0-0.6); ABS Lymphocytes 1.9 10^3/ul (1.0-4.8); ABS Monocytes 1.2 10^3/ul (0-0.8); ABS Neutrophils 3.4 10^3/ul (1.5-7.7); ABS Nucleated RBC 0 10^3/ul; Eosinophil % 2.5 % (0-6); Hematocrit 34 % (42-52); Hemoglobin 11.3 g/dl (14.0-18.0); Lymphocyte % 27.4 % (25-47); Mean Corpuscular HGB Conc 33 g/dl (31-36); Mean Corpuscular Hemoglobin 27 pg (27-31); Mean Corpuscular Volume 82 fL (80-94); Mean Platelet Volume 8 um3 (7.4-10.4); Nucleated Red Blood Cells % 0; Platelet Count 234 10^3/ul (150-450); Red Blood Count 4.12 10^6/ul (4.0-5.4); Red Cell Distribution Width 16 % (10.5-15); White Blood Count 6.8 10^3/ul (3.5-10.8)
[2017-07-17] MEDS: fentaNYL Patch Check Q Shift 1 NOTE SCH ×2 (07:17→19:09)
[2017-07-17] MEDS: Cholecalciferol TAB* 1000 UNITS PO SCH (09:23)
[2017-07-17] MEDS: Cyanocobalamin TAB* 500 MCG PO SCH (09:24)
[2017-07-17] MEDS: Ferrous Gluconate TAB* 324 MG TAB PO SCH (09:24)
[2017-07-17] MEDS: Furosemide TAB* 40 MG PO SCH ×2 (09:24→16:46)
[2017-07-17] MEDS: Lisinopril TAB* 10 MG PO SCH (09:24)
[2017-07-17] MEDS: Lactobacillus Acidophilu (GG)* 1 CAP CAP PO SCH (09:24)
[2017-07-17] MEDS: Folic Acid TAB* 1 MG PO SCH (09:24)
[2017-07-17] MEDS: Ascorbic Acid TAB* 500 MG PO SCH (09:24)
[2017-07-17] MEDS: Potassium Chlor TAB* 10 MEQ TAB.ER PO SCH (09:24)
[2017-07-17] MEDS: Zinc Sulfate CAP* 220 MG PO SCH (09:25)
[2017-07-17] MEDS: Pregabalin CAP(*) 50 MG PO SCH ×3 (09:40→22:18)
[2017-07-17] MEDS: Clotrimazole 1% CREAM* 45 GM TOPICAL SCH (09:57)
[2017-07-17] MEDS: Hydrocortisone 1% CREAM* 30 GM TUBE TOPICAL SCH ×3 (10:00→23:57)
--- NOTE | 2017-07-17 10:58 | PN ---
Progress Note - Progress Note Date of Service: 07/17/17 SOAP: Subjective: Doing better today, denies any back or abdominal pain. Stoma continues to work well, appetite keeps getting better. Has no complaints today. Objective: Awake and alert, comfortable in bed VSS, afbrile Abdomen soft, Nt, ND. Stoma viable with liquid brown stool output. Assessment: 71 y/o male, s/p diverting colostomy, stable and improving Plan: D/C plans per medicine No surgical indications at this time. Sign off patient, please call if any issues during this admission.
[2017-07-17] MEDS: cefTRIAXone(*) 1 GM in D5W 50 ML BAG* 50 ML IVPB SCH (16:47)
--- NOTE | 2017-07-17 18:06 | PN ---
Subjective Date of Service: 07/16/17 Interval History: . patient with ongoing confusion and intermittent chills long discussion with patient's family -- his and his son who is visiting from [place]. After multiple conversations and lines of inquiry, I determined the patient was suffering from a UTI. We discussed rehydration. patient was certainly delerius from the UTI (as well as opiates he was getting concurrent with his acute illness). colostomy working intake was diminished T&P'ing occuring religiously. orders for IVF and repeat labs to ensure creatinine was decreasing. . Family History: Unchanged from Admission Social History: Unchanged from Admission Past Medical History: Unchanged from Admission Objective Active Medications: . Acetaminophen (Tylenol Tab*) 650 mg PO Q6H PRN PRN Reason: FEVER/PAIN Last Admin: 07/13/17 15:57 Dose: 650 mg Ascorbic Acid (Vitamin C Tab*) 500 mg PO DAILY [facility] Last Admin: 07/17/17 09:24 Dose: 500 mg Cholecalciferol (Vitamin D Tab*) 5,000 units PO DAILY [facility] Last Admin: 07/17/17 09:23 Dose: 5,000 units Clotrimazole (Clotrimazole 1%*) 1 applic TOPICAL DAILY [facility] Last Admin: 07/17/17 09:57 Dose: 1 applic Cyanocobalamin (Vitamin B12 Tab*) 1,000 mcg PO DAILY [facility] Last Admin: 07/17/17 09:24 Dose: 1,000 mcg Fentanyl (Duragesic Patch 75 Mcg/Hr*) 75 mcg TRANSDERM Q72H [facility] Ferrous Gluconate (Fergon Tab*) 324 mg PO DAILY [facility] Last Admin: 07/17/17 09:24 Dose: 324 mg Folic Acid (Folvite Tab*) 0.5 mg PO DAILY [facility] Last Admin: 07/17/17 09:24 Dose: 0.5 mg Furosemide (Lasix Tab*) 40 mg PO 0800,1700 [facility] Last Admin: 07/17/17 16:46 Dose: 40 mg Heparin Sodium (Porcine) (Heparin Vial(*)) 5,000 units SUBCUT Q8HR [facility] Last Admin: 07/17/17 15:33 Dose: 5,000 units Hydralazine HCl (Apresoline Iv*) 5 mg IV SLOW PU Q6H PRN PRN Reason: SYSTOLIC BP GREATER THAN: Last Admin: 07/13/17 09:47 Dose: 5 mg Hydrocortisone (Hytone Cream 1%*) 1 applic TOPICAL TID [facility] Last Admin: 07/17/17 16:12 Dose: Not Given Ceftriaxone Sodium 1 gm/ (Dextrose) 50 mls @ 200 mls/hr IVPB 1730 [facility] Last Admin: 07/17/17 16:47 Dose: 200 mls/hr Potassium Chloride/Sodium Chloride (Ns 0.9% W/ 20 Meq Kcl 1000 Ml*) 1,000 mls @ 150 mls/hr IV .ENTER RATE [facility] Lactobacillus Rhamnosus (Culturelle*) 1 cap PO DAILY [facility] Last Admin: 07/17/17 09:24 Dose: 1 cap Lisinopril (Prinivil Tab*) 10 mg PO DAILY [facility] Last Admin: 07/17/17 09:24 Dose: 10 mg Omeprazole (Prilosec Cap*) 40 mg PO DAILY@0730 [facility] Last Admin: 07/17/17 06:16 Dose: Not Given Oxycodone HCl (Oxycodone Oral.Soln*) 10 mg PO Q4H PRN PRN Reason: PAIN Last Admin: 07/16/17 08:10 Dose: 10 mg Oxycodone HCl (Roxycodone Tab*) 10 mg PO Q4H [facility] Last Admin: 07/17/17 16:46 Dose: 10 mg Pharmacy Profile Note (Fentanyl Patch Check Q Shift) 1 note N/A 0700,1900 [facility] Last Admin: 07/17/17 07:17 Dose: 1 note Potassium Chloride (Klor Con Er Tab*) 10 meq PO DAILY [facility] Last Admin: 07/17/17 09:24 Dose: 10 meq Pregabalin (Lyrica Cap(*)) 150 mg PO TID [facility] Last Admin: 07/17/17 15:32 Dose: 150 mg Zinc Sulfate (Zinc-220 Cap*) 220 mg PO DAILY [facility] Last Admin: 07/17/17 09:25 Dose: 220 mg . Vital Signs - 8 hr 07/17/17 07/17/17 07/17/17 11:40 11:50 15:32 Temperature Pulse Rate Respiratory 16 16 16 Rate Blood Pressure (mmHg) O2 Sat by Pulse Oximetry 07/17/17 07/17/17 07/17/17 15:37 16:00 16:46 Temperature 98.1 F Pulse Rate 92 Respiratory 16 16 Rate Blood Pressure 135/58 (mmHg) O2 Sat by Pulse 95 95 Oximetry Oxygen Devices in Use Now: None Appearance: elderly, appears confused relative to baseline; less interacive/ alert Eyes: No Scleral Icterus Ears/Nose/Mouth/Throat: Clear Oropharnyx, - - bit dry MM Neck: Trachea Midline Respiratory: Symmetrical Chest Expansion and Respiratory Effort, - - RR ~ 10- 12... Cardiovascular: NL Sounds; No Murmurs; No JVD Abdominal: NL Sounds; No Tenderness; No Distention, - - colostomy functioning; looks good. Extremities: No Edema Skin: No Rash or Ulcers, - - flap looks good on rolling. Neurological: - - confused, acute delerium (though mild). Lines/Tubes/Other Access: Clean, Dry and Intact Peripheral IV - R arm Nutrition: Taking PO's - but diminished Result Diagrams: 07/17/17 05:58 07/17/17 05:58 Additional Lab and Data: UA grossly abnormal 07/16/2016 UCX - pending Assess/Plan/Problems-Billing . 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 Recent altered mental status due to acute Urinary tract infection related to indwelling arriaga catheter and related dehydration. - Patient Problems (1) UTI (urinary tract infection) Current Visit: No Status: Acute Priority: High Comment: UA with positive leukocyte esterase Start ceftriaxone given long recent h/o fluroquinolone use... Patient with chronic indwelling arriaga catheter - will change after Abx start Consider suprapubic catheter given number of UTI's in past year Await urine cx --> tailor Abx as per Abx sensitivities (2) Acute osteomyelitis of sacrum Current Visit: No Status: Resolved Priority: High Code(s): M46.28 - OSTEOMYELITIS OF VERTEBRA, SACRAL AND SACROCOCCYGEAL REGION Comment: - s/p debridement at time of flap creation at [facility] - Completed antibiotics 06/13 - stable (3) S/P flap graft Current Visit: No Status: Acute Priority: High Code(s): Z98.890 - OTHER SPECIFIED POSTPROCEDURAL STATES Comment: - Graft completed 05/02/17 at [facility] - Continue medihoney for 2 small open areas - Graft intact - Reposition Q2h - OOB TID for up to 2 hours as chandler (4) Chronic back pain Current Visit: No Status: Chronic Priority: Medium Code(s): M54.9 - DORSALGIA, UNSPECIFIED; G89.29 - OTHER CHRONIC PAIN Comment: - Secondary to ependymoma - Pain management following - Continue pregabalin, acetaminophen, oxycodone liquid 10mg q4h PRN, and Fentanyl patch at 75mcg...hold opiates, as needed, for AMS related to UTI/acute infection. - Hold Oxycodone 10mg PO Q4H scheduled while awake 2/2 hypotension - Stable (5) Chronic indwelling Arriaga catheter Current Visit: No Status: Chronic Priority: High Code(s): Z92.89 - PERSONAL HISTORY OF OTHER MEDICAL TREATMENT Comment: - Secondary to neurogenic bladder - + UTI (recurrent) - consider suprapubic catheter; discuss with urology after acute infection cleares. (6) Ependymoma Current Visit: No Status: Chronic Priority: High Code(s): C71.9 - MALIGNANT NEOPLASM OF BRAIN, UNSPECIFIED Comment: - Wheelchair bound - High risk for continued back pain, decompensation, pressure wounds and UTIs - Supportive care (7) Neurogenic bladder Current Visit: No Status: Chronic Priority: High Code(s): N31.9 - NEUROMUSCULAR DYSFUNCTION OF BLADDER, UNSPECIFIED Comment: - Arriaga care; change arriaga given current infection (8) Neurogenic bowel Current Visit: No Status: Chronic Priority: High Code(s): K59.2 - NEUROGENIC BOWEL, NOT ELSEWHERE CLASSIFIED SNOMED Code(s): 736939260 Comment: - S/P diverting colostomy to prevent further skin breakdown - Cleared per surgery Status and Disposition: Remain inpatient, reinforce PT and DC home.
--- NOTE | 2017-07-17 18:15 | PN ---
Subjective Date of Service: 07/17/17 Interval History: . doing better today; more lucid family happy discussed SP catheter option -- will further d/w urology next week. denies new pain -- curently controlled still suboptimal intake - will intermittently give IVF. abx going well ostomy ok. . Family History: Unchanged from Admission Social History: Unchanged from Admission Past Medical History: Unchanged from Admission Objective Active Medications: Acetaminophen (Tylenol Tab*) 650 mg PO Q6H PRN PRN Reason: FEVER/PAIN Last Admin: 07/13/17 15:57 Dose: 650 mg Ascorbic Acid (Vitamin C Tab*) 500 mg PO DAILY [facility] Last Admin: 07/17/17 09:24 Dose: 500 mg Cholecalciferol (Vitamin D Tab*) 5,000 units PO DAILY [facility] Last Admin: 07/17/17 09:23 Dose: 5,000 units Clotrimazole (Clotrimazole 1%*) 1 applic TOPICAL DAILY [facility] Last Admin: 07/17/17 09:57 Dose: 1 applic Cyanocobalamin (Vitamin B12 Tab*) 1,000 mcg PO DAILY [facility] Last Admin: 07/17/17 09:24 Dose: 1,000 mcg Fentanyl (Duragesic Patch 75 Mcg/Hr*) 75 mcg TRANSDERM Q72H [facility] Ferrous Gluconate (Fergon Tab*) 324 mg PO DAILY [facility] Last Admin: 07/17/17 09:24 Dose: 324 mg Folic Acid (Folvite Tab*) 0.5 mg PO DAILY [facility] Last Admin: 07/17/17 09:24 Dose: 0.5 mg Furosemide (Lasix Tab*) 40 mg PO 0800,1700 [facility] Last Admin: 07/17/17 16:46 Dose: 40 mg Heparin Sodium (Porcine) (Heparin Vial(*)) 5,000 units SUBCUT Q8HR [facility] Last Admin: 07/17/17 15:33 Dose: 5,000 units Hydralazine HCl (Apresoline Iv*) 5 mg IV SLOW PU Q6H PRN PRN Reason: SYSTOLIC BP GREATER THAN: Last Admin: 07/13/17 09:47 Dose: 5 mg Hydrocortisone (Hytone Cream 1%*) 1 applic TOPICAL TID [facility] Last Admin: 07/17/17 16:12 Dose: Not Given Ceftriaxone Sodium 1 gm/ (Dextrose) 50 mls @ 200 mls/hr IVPB 1730 [facility] Last Admin: 07/17/17 16:47 Dose: 200 mls/hr Potassium Chloride/Sodium Chloride (Ns 0.9% W/ 20 Meq Kcl 1000 Ml*) 1,000 mls @ 150 mls/hr IV PER RATE [facility] Lactobacillus Rhamnosus (Culturelle*) 1 cap PO DAILY [facility] Last Admin: 07/17/17 09:24 Dose: 1 cap Lisinopril (Prinivil Tab*) 10 mg PO DAILY [facility] Last Admin: 07/17/17 09:24 Dose: 10 mg Omeprazole (Prilosec Cap*) 40 mg PO DAILY@0730 [facility] Last Admin: 07/17/17 06:16 Dose: Not Given Oxycodone HCl (Oxycodone Oral.Soln*) 10 mg PO Q4H PRN PRN Reason: PAIN Last Admin: 07/16/17 08:10 Dose: 10 mg Oxycodone HCl (Roxycodone Tab*) 10 mg PO Q4H [facility] Last Admin: 07/17/17 16:46 Dose: 10 mg Pharmacy Profile Note (Fentanyl Patch Check Q Shift) 1 note N/A 0700,1900 [facility] Last Admin: 07/17/17 07:17 Dose: 1 note Potassium Chloride (Klor Con Er Tab*) 10 meq PO DAILY [facility] Last Admin: 07/17/17 09:24 Dose: 10 meq Pregabalin (Lyrica Cap(*)) 150 mg PO TID [facility] Last Admin: 07/17/17 15:32 Dose: 150 mg Zinc Sulfate (Zinc-220 Cap*) 220 mg PO DAILY [facility] Last Admin: 07/17/17 09:25 Dose: 220 mg Vital Signs - 8 hr 07/17/17 07/17/17 07/17/17 11:40 11:50 15:32 Temperature Pulse Rate Respiratory 16 16 16 Rate Blood Pressure (mmHg) O2 Sat by Pulse Oximetry 07/17/17 07/17/17 07/17/17 15:37 16:00 16:46 Temperature 98.1 F Pulse Rate 92 Respiratory 16 16 Rate Blood Pressure 135/58 (mmHg) O2 Sat by Pulse 95 95 Oximetry 07/17/17 17:35 Temperature Pulse Rate Respiratory 14 Rate Blood Pressure (mmHg) O2 Sat by Pulse Oximetry Oxygen Devices in Use Now: None Appearance: elderly; more alert Eyes: No Scleral Icterus Ears/Nose/Mouth/Throat: Clear Oropharnyx Neck: NL Appearance and Movements; NL JVP Respiratory: Symmetrical Chest Expansion and Respiratory Effort Cardiovascular: NL Sounds; No Murmurs; No JVD Abdominal: NL Sounds; No Tenderness; No Distention, - - ostomy, R, CDI... Lymphatic: No Cervical Adenopathy Extremities: No Edema, - - teds on Skin: No Rash or Ulcers, - - graft looks good. Neurological: Alert and Oriented x 3 Lines/Tubes/Other Access: Clean, Dry and Intact Arriaga - changed, Clean, Dry and Intact Peripheral IV - R arm Nutrition: Taking PO's Result Diagrams: 07/17/17 05:58 07/17/17 05:58 Additional Lab and Data: UA grossly abnormal 07/16/2016 UCX - pending Assess/Plan/Problems-Billing . 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 Recent altered mental status due to acute Urinary tract infection related to indwelling arriaga catheter and related dehydration. - Patient Problems (1) UTI (urinary tract infection) Current Visit: No Status: Acute Priority: High Comment: UA with positive leukocyte esterase Started ceftriaxone given long recent h/o fluroquinolone use...tolerating well. complete 5-7 days course. Patient with chronic indwelling arriaga catheter - will change after Abx start Consider suprapubic catheter given number of UTI's in past year Await urine cx --> tailor Abx as per Abx sensitivities (2) Acute osteomyelitis of sacrum Current Visit: No Status: Resolved Priority: High Code(s): M46.28 - OSTEOMYELITIS OF VERTEBRA, SACRAL AND SACROCOCCYGEAL REGION Comment: - s/p debridement at time of flap creation at [facility] - Completed antibiotics 06/13 - stable (3) S/P flap graft Current Visit: No Status: Acute Priority: High Code(s): Z98.890 - OTHER SPECIFIED POSTPROCEDURAL STATES Comment: - Graft completed 05/02/17 at [facility] - Continue medihoney for 2 small open areas - Graft intact - Reposition Q2h - OOB TID for up to 2 hours as chandler (4) Chronic back pain Current Visit: No Status: Chronic Priority: Medium Code(s): M54.9 - DORSALGIA, UNSPECIFIED; G89.29 - OTHER CHRONIC PAIN Comment: - Secondary to ependymoma - Pain management following - Continue pregabalin, acetaminophen, oxycodone liquid 10mg q4h PRN, and Fentanyl patch at 75mcg...hold opiates, as needed, for AMS related to UTI/acute infection. - Hold Oxycodone 10mg PO Q4H scheduled while awake 2/2 hypotension - Stable (5) Chronic indwelling Arriaga catheter Current Visit: No Status: Chronic Priority: High Code(s): Z92.89 - PERSONAL HISTORY OF OTHER MEDICAL TREATMENT Comment: - Secondary to neurogenic bladder - + UTI (recurrent) - consider suprapubic catheter; discuss with urology after acute infection cleares. (6) Ependymoma Current Visit: No Status: Chronic Priority: High Code(s): C71.9 - MALIGNANT NEOPLASM OF BRAIN, UNSPECIFIED Comment: - Wheelchair bound - High risk for continued back pain, decompensation, pressure wounds and UTIs - Supportive care (7) Neurogenic bladder Current Visit: No Status: Chronic Priority: High Code(s): N31.9 - NEUROMUSCULAR DYSFUNCTION OF BLADDER, UNSPECIFIED Comment: - Arriaga care; change arriaga given current infection (8) Neurogenic bowel Current Visit: No Status: Chronic Priority: High Code(s): K59.2 - NEUROGENIC BOWEL, NOT ELSEWHERE CLASSIFIED SNOMED Code(s): 256564711 Comment: - S/P diverting colostomy to prevent further skin breakdown - Cleared per surgery Status and Disposition: Remain inpatient, reinforce PT and DC home.
[2017-07-17] MEDS: NS 0.9% w/ 20 Meq KCL 1000 ML* 1,000 ML IV SCH (18:39)
[2017-07-18] MEDS: oxyCODONE TAB* 5 MG TAB PO SCH ×6 (00:09→22:22)
[2017-07-18] MEDS: NS 0.9% w/ 20 Meq KCL 1000 ML* 1,000 ML IV SCH ×2 (04:28→12:02)
[2017-07-18] MEDS: fentaNYL Patch Check Q Shift 1 NOTE SCH ×2 (06:52→19:18)
[2017-07-18] MEDS: Heparin VIAL(*) 5000 UNITS/ML VIAL (FIVE THOUSAND) SUBCUT SCH ×3 (06:59→21:55)
[2017-07-18] MEDS: Ferrous Gluconate TAB* 324 MG TAB PO SCH (10:16)
[2017-07-18] MEDS: Cholecalciferol TAB* 1000 UNITS PO SCH (10:16)
[2017-07-18] MEDS: Lactobacillus Acidophilu (GG)* 1 CAP CAP PO SCH (10:17)
[2017-07-18] MEDS: Lisinopril TAB* 10 MG PO SCH (10:17)
[2017-07-18] MEDS: Omeprazole CAP* 20 MG PO SCH (10:17)
[2017-07-18] MEDS: Furosemide TAB* 40 MG PO SCH ×2 (10:17→18:18)
[2017-07-18] MEDS: Cyanocobalamin TAB* 500 MCG PO SCH (10:17)
[2017-07-18] MEDS: Zinc Sulfate CAP* 220 MG PO SCH (10:17)
[2017-07-18] MEDS: Potassium Chlor TAB* 10 MEQ TAB.ER PO SCH (10:17)
[2017-07-18] MEDS: Pregabalin CAP(*) 50 MG PO SCH ×3 (10:17→21:52)
[2017-07-18] MEDS: Ascorbic Acid TAB* 500 MG PO SCH (10:17)
[2017-07-18] MEDS: Folic Acid TAB* 1 MG PO SCH (10:18)
[2017-07-18] MEDS: Clotrimazole 1% CREAM* 45 GM TOPICAL SCH (12:26)
[2017-07-18] MEDS: Hydrocortisone 1% CREAM* 30 GM TUBE TOPICAL SCH ×3 (12:26→21:51)
[2017-07-18] MEDS: fentaNYL PATCH 75 MCG/HR* 75 MCG TRANSDERM SCH (18:16)
[2017-07-18] MEDS: cefTRIAXone(*) 1 GM in D5W 50 ML BAG* 50 ML IVPB SCH (19:09)
[2017-07-19] MEDS: oxyCODONE TAB* 5 MG TAB PO SCH ×8 (00:10→20:56)
[2017-07-19] MEDS: NS 0.9% w/ 20 Meq KCL 1000 ML* 1,000 ML IV SCH (01:36)
[2017-07-19] MEDS: Heparin VIAL(*) 5000 UNITS/ML VIAL (FIVE THOUSAND) SUBCUT SCH ×3 (05:51→20:57)
[2017-07-19] MEDS: fentaNYL Patch Check Q Shift 1 NOTE SCH ×2 (07:22→18:48)
[2017-07-19 07:31] LABS: ABS Basophils 0 10^3/ul (0-0.2); ABS Eosinophils 0.2 10^3/ul (0-0.6); ABS Lymphocytes 2.1 10^3/ul (1.0-4.8); ABS Monocytes 0.9 10^3/ul (0-0.8); ABS Neutrophils 2.4 10^3/ul (1.5-7.7); ABS Nucleated RBC 0 10^3/ul; Eosinophil % 3.6 % (0-6); Hematocrit 35 % (42-52); Hemoglobin 11.3 g/dl (14.0-18.0); Lymphocyte % 37.1 % (25-47); Mean Corpuscular HGB Conc 33 g/dl (31-36); Mean Corpuscular Hemoglobin 27 pg (27-31); Mean Corpuscular Volume 83 fL (80-94); Mean Platelet Volume 8 um3 (7.4-10.4); Nucleated Red Blood Cells % 0; Platelet Count 254 10^3/ul (150-450); Red Blood Count 4.19 10^6/ul (4.0-5.4); Red Cell Distribution Width 16 % (10.5-15); White Blood Count 5.7 10^3/ul (3.5-10.8)
[2017-07-19] MEDS: oxyCODONE ORAL.SOLN* 5 MG/5 ML UDC PO PRN ×2 (08:28→17:41)
[2017-07-19] MEDS: Folic Acid TAB* 1 MG PO SCH (08:47)
[2017-07-19] MEDS: Lisinopril TAB* 10 MG PO SCH (08:48)
[2017-07-19] MEDS: Cholecalciferol TAB* 1000 UNITS PO SCH (08:48)
[2017-07-19] MEDS: Cyanocobalamin TAB* 500 MCG PO SCH (08:48)
[2017-07-19] MEDS: Ferrous Gluconate TAB* 324 MG TAB PO SCH (08:48)
[2017-07-19] MEDS: Zinc Sulfate CAP* 220 MG PO SCH (08:49)
[2017-07-19] MEDS: Pregabalin CAP(*) 50 MG PO SCH ×3 (08:49→20:55)
[2017-07-19] MEDS: Furosemide TAB* 40 MG PO SCH ×2 (08:49→17:16)
[2017-07-19] MEDS: Lactobacillus Acidophilu (GG)* 1 CAP CAP PO SCH (08:49)
[2017-07-19] MEDS: Omeprazole CAP* 20 MG PO SCH (08:49)
[2017-07-19] MEDS: Ascorbic Acid TAB* 500 MG PO SCH (08:51)
[2017-07-19] MEDS: Potassium Chlor TAB* 10 MEQ TAB.ER PO SCH (08:51)
[2017-07-19] MEDS: Hydrocortisone 1% CREAM* 30 GM TUBE TOPICAL SCH ×3 (12:25→20:55)
[2017-07-19] MEDS: Clotrimazole 1% CREAM* 45 GM TOPICAL SCH (12:25)
[2017-07-19] MEDS: cefTRIAXone(*) 1 GM in D5W 50 ML BAG* 50 ML IVPB SCH (17:16)
[2017-07-20] MEDS: oxyCODONE TAB* 5 MG TAB PO SCH ×6 (01:08→20:57)
[2017-07-20] MEDS: Heparin VIAL(*) 5000 UNITS/ML VIAL (FIVE THOUSAND) SUBCUT SCH ×3 (05:52→20:59)
[2017-07-20] MEDS: fentaNYL Patch Check Q Shift 1 NOTE SCH ×2 (07:02→19:07)
[2017-07-20] MEDS: oxyCODONE ORAL.SOLN* 5 MG/5 ML UDC PO PRN ×3 (08:10→17:45)
[2017-07-20] MEDS: Lisinopril TAB* 10 MG PO SCH (08:54)
[2017-07-20] MEDS: Ferrous Gluconate TAB* 324 MG TAB PO SCH (08:54)
[2017-07-20] MEDS: Zinc Sulfate CAP* 220 MG PO SCH (08:55)
[2017-07-20] MEDS: Cholecalciferol TAB* 1000 UNITS PO SCH (08:55)
[2017-07-20] MEDS: Folic Acid TAB* 1 MG PO SCH (08:55)
[2017-07-20] MEDS: Cyanocobalamin TAB* 500 MCG PO SCH (08:55)
[2017-07-20] MEDS: Lactobacillus Acidophilu (GG)* 1 CAP CAP PO SCH (08:55)
[2017-07-20] MEDS: Potassium Chlor TAB* 10 MEQ TAB.ER PO SCH (08:55)
[2017-07-20] MEDS: Omeprazole CAP* 20 MG PO SCH (08:56)
[2017-07-20] MEDS: Furosemide TAB* 40 MG PO SCH ×2 (08:56→16:47)
[2017-07-20] MEDS: Ascorbic Acid TAB* 500 MG PO SCH (08:56)
[2017-07-20] MEDS: Pregabalin CAP(*) 50 MG PO SCH ×3 (08:56→20:55)
[2017-07-20] MEDS: Hydrocortisone 1% CREAM* 30 GM TUBE TOPICAL SCH ×3 (10:31→20:57)
[2017-07-20] MEDS: Clotrimazole 1% CREAM* 45 GM TOPICAL SCH (10:31)
[2017-07-20] MEDS: cefTRIAXone(*) 1 GM in D5W 50 ML BAG* 50 ML IVPB SCH (16:47)
[2017-07-21] MEDS: oxyCODONE TAB* 5 MG TAB PO SCH ×4 (00:35→12:03)
[2017-07-21] MEDS: Heparin VIAL(*) 5000 UNITS/ML VIAL (FIVE THOUSAND) SUBCUT SCH ×3 (05:57→22:45)
[2017-07-21 06:27] LABS: ABS Basophils 0.1 10^3/ul (0-0.2); ABS Eosinophils 0.2 10^3/ul (0-0.6); ABS Lymphocytes 2.4 10^3/ul (1.0-4.8); ABS Monocytes 0.9 10^3/ul (0-0.8); ABS Nucleated RBC 0 10^3/ul; Eosinophil % 3.7 % (0-6); Hematocrit 35 % (42-52); Hemoglobin 11.7 g/dl (14.0-18.0); Lymphocyte % 36.7 % (25-47); Mean Corpuscular HGB Conc 33 g/dl (31-36); Mean Corpuscular Hemoglobin 27 pg (27-31); Mean Corpuscular Volume 82 fL (80-94); Mean Platelet Volume 8 um3 (7.4-10.4); Nucleated Red Blood Cells % 0.1; Platelet Count 265 10^3/ul (150-450); Red Cell Distribution Width 16 % (10.5-15); White Blood Count 6.7 10^3/ul (3.5-10.8)
[2017-07-21] MEDS: fentaNYL Patch Check Q Shift 1 NOTE SCH ×2 (07:27→18:45)
[2017-07-21] MEDS: oxyCODONE ORAL.SOLN* 5 MG/5 ML UDC PO PRN ×3 (08:49→17:13)
[2017-07-21] MEDS: Ferrous Gluconate TAB* 324 MG TAB PO SCH (08:51)
[2017-07-21] MEDS: Lactobacillus Acidophilu (GG)* 1 CAP CAP PO SCH (08:51)
[2017-07-21] MEDS: Cyanocobalamin TAB* 500 MCG PO SCH (08:51)
[2017-07-21] MEDS: Cholecalciferol TAB* 1000 UNITS PO SCH (08:51)
[2017-07-21] MEDS: Zinc Sulfate CAP* 220 MG PO SCH (08:52)
[2017-07-21] MEDS: Lisinopril TAB* 10 MG PO SCH (08:52)
[2017-07-21] MEDS: Pregabalin CAP(*) 50 MG PO SCH ×3 (08:52→22:44)
[2017-07-21] MEDS: Folic Acid TAB* 1 MG PO SCH (08:52)
[2017-07-21] MEDS: Ascorbic Acid TAB* 500 MG PO SCH (08:52)
[2017-07-21] MEDS: Furosemide TAB* 40 MG PO SCH ×2 (08:52→17:14)
[2017-07-21] MEDS: Potassium Chlor TAB* 10 MEQ TAB.ER PO SCH (08:52)
[2017-07-21] MEDS: Omeprazole CAP* 20 MG PO SCH (08:52)
[2017-07-21] MEDS: Clotrimazole 1% CREAM* 45 GM TOPICAL SCH (08:53)
--- NOTE | 2017-07-21 09:29 | PN ---
Subjective Date of Service: 07/21/17 Interval History: Pt has no new complains. Good appetite, still feels generalized weakness. [place]' t [place] [facility] [place] Family History: Unchanged from Admission Social History: Unchanged from Admission Past Medical History: Unchanged from Admission Objective Active Medications: Acetaminophen (Tylenol Tab*) 650 mg PO Q6H PRN PRN Reason: FEVER/PAIN Last Admin: 07/13/17 15:57 Dose: 650 mg Ascorbic Acid (Vitamin C Tab*) 500 mg PO DAILY [facility] Last Admin: 07/21/17 08:52 Dose: 500 mg Cholecalciferol (Vitamin D Tab*) 5,000 units PO DAILY [facility] Last Admin: 07/21/17 08:51 Dose: 5,000 units Clotrimazole (Clotrimazole 1%*) 1 applic TOPICAL DAILY [facility] Last Admin: 07/21/17 08:53 Dose: 1 applic Cyanocobalamin (Vitamin B12 Tab*) 1,000 mcg PO DAILY [facility] Last Admin: 07/21/17 08:51 Dose: 1,000 mcg Fentanyl (Duragesic Patch 75 Mcg/Hr*) 75 mcg TRANSDERM Q72H [facility] Last Admin: 07/18/17 18:16 Dose: 75 mcg Ferrous Gluconate (Fergon Tab*) 324 mg PO DAILY [facility] Last Admin: 07/21/17 08:51 Dose: 324 mg Folic Acid (Folvite Tab*) 0.5 mg PO DAILY [facility] Last Admin: 07/21/17 08:52 Dose: 0.5 mg Furosemide (Lasix Tab*) 40 mg PO 0800,1700 [facility] Last Admin: 07/21/17 08:52 Dose: 40 mg Heparin Sodium (Porcine) (Heparin Vial(*)) 5,000 units SUBCUT Q8HR [facility] Last Admin: 07/21/17 05:57 Dose: 5,000 units Hydralazine HCl (Apresoline Iv*) 5 mg IV SLOW PU Q6H PRN PRN Reason: SYSTOLIC BP GREATER THAN: Last Admin: 07/13/17 09:47 Dose: 5 mg Hydrocortisone (Hytone Cream 1%*) 1 applic TOPICAL TID [facility] Last Admin: 07/21/17 08:54 Dose: 1 applic Ceftriaxone Sodium 1 gm/ (Dextrose) 50 mls @ 200 mls/hr IVPB 1730 [facility] Last Admin: 07/20/17 16:47 Dose: 200 mls/hr Lactobacillus Rhamnosus (Culturelle*) 1 cap PO DAILY [facility] Last Admin: 07/21/17 08:51 Dose: 1 cap Lisinopril (Prinivil Tab*) 10 mg PO DAILY [facility] Last Admin: 07/21/17 08:52 Dose: 10 mg Omeprazole (Prilosec Cap*) 40 mg PO DAILY@0730 [facility] Last Admin: 07/21/17 08:52 Dose: 40 mg Oxycodone HCl (Roxycodone Tab*) 10 mg PO Q4H [facility] Last Admin: 07/21/17 08:54 Dose: Not Given Oxycodone HCl (Oxycodone Oral.Soln*) 10 mg PO Q4H PRN PRN Reason: PAIN Last Admin: 07/21/17 08:49 Dose: 10 mg Pharmacy Profile Note (Fentanyl Patch Check Q Shift) 1 note N/A 0700,1900 [facility] Last Admin: 07/21/17 07:27 Dose: 1 note Potassium Chloride (Klor Con Er Tab*) 10 meq PO DAILY [facility] Last Admin: 07/21/17 08:52 Dose: 10 meq Pregabalin (Lyrica Cap(*)) 150 mg PO TID [facility] Last Admin: 07/21/17 08:52 Dose: 150 mg Zinc Sulfate (Zinc-220 Cap*) 220 mg PO DAILY [facility] Last Admin: 07/21/17 08:52 Dose: 220 mg Vital Signs - 8 hr 07/21/17 07/21/17 07/21/17 04:07 08:49 08:52 Temperature 98.2 F Pulse Rate 65 Respiratory 16 16 16 Rate Blood Pressure 115/61 (mmHg) O2 Sat by Pulse 97 Oximetry Oxygen Devices in Use Now: None Appearance: 71 yo M in NAD, AAOx3 Eyes: No Scleral Icterus, PERRLA Ears/Nose/Mouth/Throat: NL Teeth, Lips, Gums, Mucous Membranes Moist Neck: NL Appearance and Movements; NL JVP, Trachea Midline Respiratory: Symmetrical Chest Expansion and Respiratory Effort Cardiovascular: NL Sounds; No Murmurs; No JVD Abdominal: NL Sounds; No Tenderness; No Distention, No Hepatosplenomegaly, - - colostomy pink with bag with brown semi solid stool Lymphatic: No Cervical Adenopathy Extremities: No Edema, No Clubbing, Cyanosis Skin: No Nodules or Sclerosis, - - sacral flap well healed with small wound area on top of graft and abrasion like 4 cm in lenght area on R side of graft Neurological: Alert and Oriented x 3, - - paraplegic Result Diagrams: 07/21/17 06:09 07/19/17 06:55 Additional Lab and Data: UA grossly abnormal 07/16/2016 UCX - pending Microbiology and Other Data: Microbiology 07/16/17 10:48 Urine Culture - Final Urine Julissa Parapsilosis Assess/Plan/Problems-Billing . 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 Recent altered mental status due to acute Urinary tract infection related to indwelling arriaga catheter and related dehydration. - Patient Problems (1) UTI (urinary tract infection) Comment: UA with positive leukocyte esterase Started ceftriaxone on 07/17/17 given long recent h/o fluroquinolone use...tolerating well. complete 7 days course 07/23/17. Cx growing Julissa parapsilosis. Possible colononization of arriaga? will recheck UA and cx. Consider suprapubic catheter given number of UTI's in past year (2) S/P flap graft Comment: - Graft completed 05/02/17 at [facility] - Continue medihoney for 2 small open areas - Graft intact - Reposition Q2h - OOB TID for up to 2 hours as chandler (3) Chronic indwelling Arriaga catheter Comment: - Secondary to neurogenic bladder - + UTI (recurrent) - consider suprapubic catheter as outpatient (4) Ependymoma Comment: - Wheelchair bound - High risk for continued back pain, decompensation, pressure wounds and UTIs - Supportive care (5) Neurogenic bladder Comment: - Arriaga care; Arriaga changed due to UTI this hospital stay (6) Acute osteomyelitis of sacrum Comment: - s/p debridement at time of flap creation at [facility] - Completed antibiotics 06/13 - stable (7) Neurogenic bowel Comment: - S/P diverting colostomy to prevent further skin breakdown - Cleared per surgery Status and Disposition: Remain inpatient
[2017-07-21 11:02] LABS: Urine Appearance Cloudy; Urine Blood 1+ (Negative); Urine Color Yellow; Urine Ketones Negative (Negative); Urine Protein 1+(30 mg/dL) (Negative); Urine Urobilinogen Negative (Negative)
[2017-07-21] MEDS: Hydrocortisone 1% CREAM* 30 GM TUBE TOPICAL SCH ×3 (12:35→22:49)
[2017-07-21] MEDS: fentaNYL PATCH 75 MCG/HR* 75 MCG TRANSDERM SCH (17:10)
[2017-07-21] MEDS: cefTRIAXone(*) 1 GM in D5W 50 ML BAG* 50 ML IVPB SCH (17:15)
[2017-07-22] MEDS: Heparin VIAL(*) 5000 UNITS/ML VIAL (FIVE THOUSAND) SUBCUT SCH ×3 (06:28→21:54)
[2017-07-22] MEDS: fentaNYL Patch Check Q Shift 1 NOTE SCH ×2 (07:00→18:54)
[2017-07-22] MEDS: Furosemide TAB* 40 MG PO SCH ×2 (07:54→16:34)
[2017-07-22] MEDS: Omeprazole CAP* 20 MG PO SCH (07:54)
[2017-07-22] MEDS: oxyCODONE ORAL.SOLN* 5 MG/5 ML UDC PO PRN ×2 (07:55→16:34)
[2017-07-22] MEDS: Hydrocortisone 1% CREAM* 30 GM TUBE TOPICAL SCH ×3 (07:58→20:47)
[2017-07-22] MEDS: Clotrimazole 1% CREAM* 45 GM TOPICAL SCH (08:02)
[2017-07-22] MEDS: Lactobacillus Acidophilu (GG)* 1 CAP CAP PO SCH (08:31)
[2017-07-22] MEDS: Ferrous Gluconate TAB* 324 MG TAB PO SCH (08:31)
[2017-07-22] MEDS: Cholecalciferol TAB* 1000 UNITS PO SCH (08:31)
[2017-07-22] MEDS: Zinc Sulfate CAP* 220 MG PO SCH (08:31)
[2017-07-22] MEDS: Pregabalin CAP(*) 50 MG PO SCH ×3 (08:32→21:56)
[2017-07-22] MEDS: Ascorbic Acid TAB* 500 MG PO SCH (08:32)
[2017-07-22] MEDS: Lisinopril TAB* 10 MG PO SCH (08:32)
[2017-07-22] MEDS: Folic Acid TAB* 1 MG PO SCH (08:32)
[2017-07-22] MEDS: Potassium Chlor TAB* 10 MEQ TAB.ER PO SCH (08:32)
[2017-07-22] MEDS: Cyanocobalamin TAB* 500 MCG PO SCH (08:32)
--- NOTE | 2017-07-22 13:25 | PN ---
Subjective Date of Service: 07/18/17 Interval History: . no new c/o breathing better better M-Status Family History: Unchanged from Admission Social History: Unchanged from Admission Past Medical History: Unchanged from Admission Objective Active Medications: . Acetaminophen (Tylenol Tab*) 650 mg PO Q6H PRN PRN Reason: FEVER/PAIN Last Admin: 07/13/17 15:57 Dose: 650 mg Ascorbic Acid (Vitamin C Tab*) 500 mg PO DAILY [facility] Last Admin: 07/22/17 08:32 Dose: 500 mg Cholecalciferol (Vitamin D Tab*) 5,000 units PO DAILY [facility] Last Admin: 07/22/17 08:31 Dose: 5,000 units Clotrimazole (Clotrimazole 1%*) 1 applic TOPICAL DAILY [facility] Last Admin: 07/22/17 08:02 Dose: Not Given Cyanocobalamin (Vitamin B12 Tab*) 1,000 mcg PO DAILY [facility] Last Admin: 07/22/17 08:32 Dose: 1,000 mcg Fentanyl (Duragesic Patch 75 Mcg/Hr*) 75 mcg TRANSDERM Q72H [facility] Last Admin: 07/21/17 17:10 Dose: 75 mcg Ferrous Gluconate (Fergon Tab*) 324 mg PO DAILY [facility] Last Admin: 07/22/17 08:31 Dose: 324 mg Folic Acid (Folvite Tab*) 0.5 mg PO DAILY [facility] Last Admin: 07/22/17 08:32 Dose: 0.5 mg Furosemide (Lasix Tab*) 40 mg PO 0800,1700 [facility] Last Admin: 07/22/17 07:54 Dose: 40 mg Heparin Sodium (Porcine) (Heparin Vial(*)) 5,000 units SUBCUT Q8HR [facility] Last Admin: 07/22/17 06:28 Dose: 5,000 units Hydralazine HCl (Apresoline Iv*) 5 mg IV SLOW PU Q6H PRN PRN Reason: SYSTOLIC BP GREATER THAN: Last Admin: 07/13/17 09:47 Dose: 5 mg Hydrocortisone (Hytone Cream 1%*) 1 applic TOPICAL TID [facility] Last Admin: 07/22/17 07:58 Dose: Not Given Ceftriaxone Sodium 1 gm/ (Dextrose) 50 mls @ 200 mls/hr IVPB 1730 [facility] Last Admin: 07/21/17 17:15 Dose: 200 mls/hr Lactobacillus Rhamnosus (Culturelle*) 1 cap PO DAILY [facility] Last Admin: 07/22/17 08:31 Dose: 1 cap Lisinopril (Prinivil Tab*) 10 mg PO DAILY [facility] Last Admin: 07/22/17 08:32 Dose: 10 mg Omeprazole (Prilosec Cap*) 40 mg PO DAILY@0730 [facility] Last Admin: 07/22/17 07:54 Dose: 40 mg Oxycodone HCl (Oxycodone Oral.Soln*) 10 mg PO Q4H PRN PRN Reason: PAIN Last Admin: 07/22/17 07:55 Dose: 10 mg Pharmacy Profile Note (Fentanyl Patch Check Q Shift) 1 note N/A 0700,1900 [facility] Last Admin: 07/22/17 07:00 Dose: 1 note Potassium Chloride (Klor Con Er Tab*) 10 meq PO DAILY [facility] Last Admin: 07/22/17 08:32 Dose: 10 meq Pregabalin (Lyrica Cap(*)) 150 mg PO TID [facility] Last Admin: 07/22/17 08:32 Dose: 150 mg Zinc Sulfate (Zinc-220 Cap*) 220 mg PO DAILY [facility] Last Admin: 07/22/17 08:31 Dose: 220 mg . Vital Signs - 8 hr 07/18/17 07/18/17 07/18/17 07:55 08:00 08:32 Temperature Pulse Rate Respiratory 18 18 18 Rate Blood Pressure (mmHg) O2 Sat by Pulse 96 Oximetry 07/18/17 07/18/17 07/18/17 09:54 10:46 11:22 Temperature 98.6 F Pulse Rate 73 Respiratory 18 18 16 Rate Blood Pressure 122/53 (mmHg) O2 Sat by Pulse 99 Oximetry Oxygen Devices in Use Now: None Appearance: NAD Eyes: No Scleral Icterus Ears/Nose/Mouth/Throat: Clear Oropharnyx Neck: Trachea Midline Respiratory: Symmetrical Chest Expansion and Respiratory Effort Cardiovascular: RRR Abdominal: No Hepatosplenomegaly, - - + ostomy C/D/I Lymphatic: No Cervical Adenopathy Extremities: No Edema Skin: No Rash or Ulcers Lines/Tubes/Other Access: Clean, Dry and Intact Peripheral IV Nutrition: Taking PO's Result Diagrams: 07/21/17 06:09 07/19/17 06:55 Additional Lab and Data: UA grossly abnormal 07/16/2016 Microbiology and Other Data: Microbiology 07/16/17 10:48 Urine Culture - Final Urine Julissa Parapsilosis Assess/Plan/Problems-Billing . 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 Recent altered mental status due to acute Urinary tract infection related to indwelling arriaga catheter and related dehydration. - Patient Problems (1) UTI (urinary tract infection) Current Visit: No Status: Acute Priority: High Comment: - UA with positive leukocyte esterase - Started ceftriaxone on 07/17/17 given long recent h/o fluroquinolone use...tolerating well. - - Complete 7 days course 07/23/17. Cx growing Julissa parapsilosis. Possible colononization of arriaga? - recheck UA and cx. - Consider suprapubic catheter given number of UTI's in past year (2) Acute osteomyelitis of sacrum Current Visit: No Status: Resolved Priority: High Code(s): M46.28 - OSTEOMYELITIS OF VERTEBRA, SACRAL AND SACROCOCCYGEAL REGION Comment: - s/p debridement at time of flap creation at [facility] - Completed antibiotics 06/13 - stable (3) S/P flap graft Current Visit: No Status: Acute Priority: High Code(s): Z98.890 - OTHER SPECIFIED POSTPROCEDURAL STATES Comment: - Graft completed 05/02/17 at [facility] - Continue medihoney for 2 small open areas - Graft intact - Reposition Q2h - OOB TID for up to 2 hours as chandler (4) Chronic back pain Current Visit: No Status: Chronic Priority: Medium Code(s): M54.9 - DORSALGIA, UNSPECIFIED; G89.29 - OTHER CHRONIC PAIN Comment: - Secondary to ependymoma - Pain management following - Continue pregabalin, acetaminophen, oxycodone liquid 10mg q4h PRN, and Fentanyl patch at 75mcg...hold opiates, as needed, for AMS related to UTI/acute infection. - Hold Oxycodone 10mg PO Q4H scheduled while awake 2/2 hypotension - Stable (5) Chronic indwelling Arriaga catheter Current Visit: No Status: Chronic Priority: High Code(s): Z92.89 - PERSONAL HISTORY OF OTHER MEDICAL TREATMENT Comment: - Secondary to neurogenic bladder - + UTI (recurrent) - consider suprapubic catheter as outpatient (6) Ependymoma Current Visit: No Status: Chronic Priority: High Code(s): C71.9 - MALIGNANT NEOPLASM OF BRAIN, UNSPECIFIED Comment: - Wheelchair bound - High risk for continued back pain, decompensation, pressure wounds and UTIs - Supportive care (7) Neurogenic bladder Current Visit: No Status: Chronic Priority: High Code(s): N31.9 - NEUROMUSCULAR DYSFUNCTION OF BLADDER, UNSPECIFIED Comment: - Arriaga care; Arriaga changed due to UTI this hospital stay (8) Neurogenic bowel Current Visit: No Status: Chronic Priority: High Code(s): K59.2 - NEUROGENIC BOWEL, NOT ELSEWHERE CLASSIFIED SNOMED Code(s): 197480179 Comment: - S/P diverting colostomy to prevent further skin breakdown - Cleared per surgery Status and Disposition: Remain inpatient, reinforce PT and DC home.
--- NOTE | 2017-07-22 13:27 | PN ---
Subjective Date of Service: 07/19/17 Interval History: . no new c/o Family History: Unchanged from Admission Social History: Unchanged from Admission Past Medical History: Unchanged from Admission Objective Active Medications: Acetaminophen (Tylenol Tab*) 650 mg PO Q6H PRN PRN Reason: FEVER/PAIN Last Admin: 07/13/17 15:57 Dose: 650 mg Ascorbic Acid (Vitamin C Tab*) 500 mg PO DAILY [facility] Last Admin: 07/22/17 08:32 Dose: 500 mg Cholecalciferol (Vitamin D Tab*) 5,000 units PO DAILY [facility] Last Admin: 07/22/17 08:31 Dose: 5,000 units Clotrimazole (Clotrimazole 1%*) 1 applic TOPICAL DAILY [facility] Last Admin: 07/22/17 08:02 Dose: Not Given Cyanocobalamin (Vitamin B12 Tab*) 1,000 mcg PO DAILY [facility] Last Admin: 07/22/17 08:32 Dose: 1,000 mcg Fentanyl (Duragesic Patch 75 Mcg/Hr*) 75 mcg TRANSDERM Q72H [facility] Last Admin: 07/21/17 17:10 Dose: 75 mcg Ferrous Gluconate (Fergon Tab*) 324 mg PO DAILY [facility] Last Admin: 07/22/17 08:31 Dose: 324 mg Folic Acid (Folvite Tab*) 0.5 mg PO DAILY [facility] Last Admin: 07/22/17 08:32 Dose: 0.5 mg Furosemide (Lasix Tab*) 40 mg PO 0800,1700 [facility] Last Admin: 07/22/17 07:54 Dose: 40 mg Heparin Sodium (Porcine) (Heparin Vial(*)) 5,000 units SUBCUT Q8HR [facility] Last Admin: 07/22/17 06:28 Dose: 5,000 units Hydralazine HCl (Apresoline Iv*) 5 mg IV SLOW PU Q6H PRN PRN Reason: SYSTOLIC BP GREATER THAN: Last Admin: 07/13/17 09:47 Dose: 5 mg Hydrocortisone (Hytone Cream 1%*) 1 applic TOPICAL TID [facility] Last Admin: 07/22/17 07:58 Dose: Not Given Ceftriaxone Sodium 1 gm/ (Dextrose) 50 mls @ 200 mls/hr IVPB 1730 [facility] Last Admin: 07/21/17 17:15 Dose: 200 mls/hr Lactobacillus Rhamnosus (Culturelle*) 1 cap PO DAILY [facility] Last Admin: 07/22/17 08:31 Dose: 1 cap Lisinopril (Prinivil Tab*) 10 mg PO DAILY [facility] Last Admin: 07/22/17 08:32 Dose: 10 mg Omeprazole (Prilosec Cap*) 40 mg PO DAILY@0730 [facility] Last Admin: 07/22/17 07:54 Dose: 40 mg Oxycodone HCl (Oxycodone Oral.Soln*) 10 mg PO Q4H PRN PRN Reason: PAIN Last Admin: 07/22/17 07:55 Dose: 10 mg Pharmacy Profile Note (Fentanyl Patch Check Q Shift) 1 note N/A 0700,1900 [facility] Last Admin: 07/22/17 07:00 Dose: 1 note Potassium Chloride (Klor Con Er Tab*) 10 meq PO DAILY [facility] Last Admin: 07/22/17 08:32 Dose: 10 meq Pregabalin (Lyrica Cap(*)) 150 mg PO TID [facility] Last Admin: 07/22/17 08:32 Dose: 150 mg Zinc Sulfate (Zinc-220 Cap*) 220 mg PO DAILY [facility] Last Admin: 07/22/17 08:31 Dose: 220 mg Vital Signs - 8 hr reviewed in nursing section. Oxygen Devices in Use Now: None Appearance: NAD Eyes: No Scleral Icterus Ears/Nose/Mouth/Throat: Clear Oropharnyx Neck: NL Appearance and Movements; NL JVP, No Thyroid Enlargement, Masses Respiratory: Symmetrical Chest Expansion and Respiratory Effort, Clear to Auscultation Cardiovascular: RRR Abdominal: NL Sounds; No Tenderness; No Distention Lymphatic: No Cervical Adenopathy Extremities: No Edema Skin: - - graft looks good Neurological: Alert and Oriented x 3 Lines/Tubes/Other Access: Clean, Dry and Intact Peripheral IV Nutrition: Taking PO's Result Diagrams: 07/21/17 06:09 07/19/17 06:55 Additional Lab and Data: UA grossly abnormal 07/16/2016 Microbiology and Other Data: Microbiology 07/16/17 10:48 Urine Culture - Final Urine Julissa Parapsilosis Assess/Plan/Problems-Billing . 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 Recent altered mental status due to acute Urinary tract infection related to indwelling arriaga catheter and related dehydration. - Patient Problems (1) UTI (urinary tract infection) Current Visit: No Status: Acute Priority: High Comment: - UA with positive leukocyte esterase - Started ceftriaxone on 07/17/17 given long recent h/o fluroquinolone use...tolerating well. - - Complete 7 days course 07/23/17. Cx growing Julissa parapsilosis. Possible colononization of arriaga? - recheck UA and cx. - Consider suprapubic catheter given number of UTI's in past year (2) Acute osteomyelitis of sacrum Current Visit: No Status: Resolved Priority: High Code(s): M46.28 - OSTEOMYELITIS OF VERTEBRA, SACRAL AND SACROCOCCYGEAL REGION Comment: - s/p debridement at time of flap creation at [facility] - Completed antibiotics 06/13 - stable (3) S/P flap graft Current Visit: No Status: Acute Priority: High Code(s): Z98.890 - OTHER SPECIFIED POSTPROCEDURAL STATES Comment: - Graft completed 05/02/17 at [facility] - Continue medihoney for 2 small open areas - Graft intact - Reposition Q2h - OOB TID for up to 2 hours as chandler (4) Chronic back pain Current Visit: No Status: Chronic Priority: Medium Code(s): M54.9 - DORSALGIA, UNSPECIFIED; G89.29 - OTHER CHRONIC PAIN Comment: - Secondary to ependymoma - Pain management following - Continue pregabalin, acetaminophen, oxycodone liquid 10mg q4h PRN, and Fentanyl patch at 75mcg...hold opiates, as needed, for AMS related to UTI/acute infection. - Hold Oxycodone 10mg PO Q4H scheduled while awake 2/2 hypotension - Stable (5) Chronic indwelling Arriaga catheter Current Visit: No Status: Chronic Priority: High Code(s): Z92.89 - PERSONAL HISTORY OF OTHER MEDICAL TREATMENT Comment: - Secondary to neurogenic bladder - + UTI (recurrent) - consider suprapubic catheter as outpatient (6) Ependymoma Current Visit: No Status: Chronic Priority: High Code(s): C71.9 - MALIGNANT NEOPLASM OF BRAIN, UNSPECIFIED Comment: - Wheelchair bound - High risk for continued back pain, decompensation, pressure wounds and UTIs - Supportive care (7) Neurogenic bladder Current Visit: No Status: Chronic Priority: High Code(s): N31.9 - NEUROMUSCULAR DYSFUNCTION OF BLADDER, UNSPECIFIED Comment: - Arriaga care; Arriaga changed due to UTI this hospital stay (8) Neurogenic bowel Current Visit: No Status: Chronic Priority: High Code(s): K59.2 - NEUROGENIC BOWEL, NOT ELSEWHERE CLASSIFIED SNOMED Code(s): 952735640 Comment: - S/P diverting colostomy to prevent further skin breakdown - Cleared per surgery Status and Disposition: Remain inpatient, reinforce PT and DC home.
--- NOTE | 2017-07-22 13:28 | PN ---
Subjective Date of Service: 07/20/17 Interval History: . denies new c/o . Family History: Unchanged from Admission Social History: Unchanged from Admission Past Medical History: Unchanged from Admission Objective Active Medications: Acetaminophen (Tylenol Tab*) 650 mg PO Q6H PRN PRN Reason: FEVER/PAIN Last Admin: 07/13/17 15:57 Dose: 650 mg Ascorbic Acid (Vitamin C Tab*) 500 mg PO DAILY [facility] Last Admin: 07/22/17 08:32 Dose: 500 mg Cholecalciferol (Vitamin D Tab*) 5,000 units PO DAILY [facility] Last Admin: 07/22/17 08:31 Dose: 5,000 units Clotrimazole (Clotrimazole 1%*) 1 applic TOPICAL DAILY [facility] Last Admin: 07/22/17 08:02 Dose: Not Given Cyanocobalamin (Vitamin B12 Tab*) 1,000 mcg PO DAILY [facility] Last Admin: 07/22/17 08:32 Dose: 1,000 mcg Fentanyl (Duragesic Patch 75 Mcg/Hr*) 75 mcg TRANSDERM Q72H [facility] Last Admin: 07/21/17 17:10 Dose: 75 mcg Ferrous Gluconate (Fergon Tab*) 324 mg PO DAILY [facility] Last Admin: 07/22/17 08:31 Dose: 324 mg Folic Acid (Folvite Tab*) 0.5 mg PO DAILY [facility] Last Admin: 07/22/17 08:32 Dose: 0.5 mg Furosemide (Lasix Tab*) 40 mg PO 0800,1700 [facility] Last Admin: 07/22/17 07:54 Dose: 40 mg Heparin Sodium (Porcine) (Heparin Vial(*)) 5,000 units SUBCUT Q8HR [facility] Last Admin: 07/22/17 06:28 Dose: 5,000 units Hydralazine HCl (Apresoline Iv*) 5 mg IV SLOW PU Q6H PRN PRN Reason: SYSTOLIC BP GREATER THAN: Last Admin: 07/13/17 09:47 Dose: 5 mg Hydrocortisone (Hytone Cream 1%*) 1 applic TOPICAL TID [facility] Last Admin: 07/22/17 07:58 Dose: Not Given Ceftriaxone Sodium 1 gm/ (Dextrose) 50 mls @ 200 mls/hr IVPB 1730 [facility] Last Admin: 07/21/17 17:15 Dose: 200 mls/hr Lactobacillus Rhamnosus (Culturelle*) 1 cap PO DAILY [facility] Last Admin: 07/22/17 08:31 Dose: 1 cap Lisinopril (Prinivil Tab*) 10 mg PO DAILY [facility] Last Admin: 07/22/17 08:32 Dose: 10 mg Omeprazole (Prilosec Cap*) 40 mg PO DAILY@0730 [facility] Last Admin: 07/22/17 07:54 Dose: 40 mg Oxycodone HCl (Oxycodone Oral.Soln*) 10 mg PO Q4H PRN PRN Reason: PAIN Last Admin: 07/22/17 07:55 Dose: 10 mg Pharmacy Profile Note (Fentanyl Patch Check Q Shift) 1 note N/A 0700,1900 [facility] Last Admin: 07/22/17 07:00 Dose: 1 note Potassium Chloride (Klor Con Er Tab*) 10 meq PO DAILY [facility] Last Admin: 07/22/17 08:32 Dose: 10 meq Pregabalin (Lyrica Cap(*)) 150 mg PO TID [facility] Last Admin: 07/22/17 08:32 Dose: 150 mg Zinc Sulfate (Zinc-220 Cap*) 220 mg PO DAILY [facility] Last Admin: 07/22/17 08:31 Dose: 220 mg Vital Signs - 8 hr reviewed. no signs of sepsis / SIRS. Oxygen Devices in Use Now: None Appearance: NAD Eyes: No Scleral Icterus, PERRLA Ears/Nose/Mouth/Throat: Clear Oropharnyx, Mucous Membranes Moist Neck: Trachea Midline Respiratory: Symmetrical Chest Expansion and Respiratory Effort, Clear to Auscultation Abdominal: NL Sounds; No Tenderness; No Distention, No Hepatosplenomegaly, - - + ostomy C/D/I Lymphatic: No Cervical Adenopathy, No Inguinal Adenopathy Extremities: No Edema Skin: No Rash or Ulcers Neurological: Alert and Oriented x 3 Lines/Tubes/Other Access: Clean, Dry and Intact Peripheral IV Nutrition: Taking PO's Result Diagrams: 07/21/17 06:09 07/19/17 06:55 Additional Lab and Data: UA grossly abnormal 07/16/2016 Microbiology and Other Data: Microbiology 07/16/17 10:48 Urine Culture - Final Urine Julissa Parapsilosis Assess/Plan/Problems-Billing . 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 Recent altered mental status due to acute Urinary tract infection related to indwelling arriaga catheter and related dehydration. - Patient Problems (1) UTI (urinary tract infection) Current Visit: No Status: Acute Priority: High Comment: - UA with positive leukocyte esterase - Started ceftriaxone on 07/17/17 given long recent h/o fluroquinolone use...tolerating well. - - Complete 7 days course 07/23/17. Cx growing Julissa parapsilosis. Possible colononization of arriaga? - recheck UA and cx. - Consider suprapubic catheter given number of UTI's in past year (2) Acute osteomyelitis of sacrum Current Visit: No Status: Resolved Priority: High Code(s): M46.28 - OSTEOMYELITIS OF VERTEBRA, SACRAL AND SACROCOCCYGEAL REGION Comment: - s/p debridement at time of flap creation at [facility] - Completed antibiotics 06/13 - stable (3) S/P flap graft Current Visit: No Status: Acute Priority: High Code(s): Z98.890 - OTHER SPECIFIED POSTPROCEDURAL STATES Comment: - Graft completed 05/02/17 at [facility] - Continue medihoney for 2 small open areas - Graft intact - Reposition Q2h - OOB TID for up to 2 hours as chandler (4) Chronic back pain Current Visit: No Status: Chronic Priority: Medium Code(s): M54.9 - DORSALGIA, UNSPECIFIED; G89.29 - OTHER CHRONIC PAIN Comment: - Secondary to ependymoma - Pain management following - Continue pregabalin, acetaminophen, oxycodone liquid 10mg q4h PRN, and Fentanyl patch at 75mcg...hold opiates, as needed, for AMS related to UTI/acute infection. - Hold Oxycodone 10mg PO Q4H scheduled while awake 2/2 hypotension - Stable (5) Chronic indwelling Arriaga catheter Current Visit: No Status: Chronic Priority: High Code(s): Z92.89 - PERSONAL HISTORY OF OTHER MEDICAL TREATMENT Comment: - Secondary to neurogenic bladder - + UTI (recurrent) - consider suprapubic catheter as outpatient (6) Ependymoma Current Visit: No Status: Chronic Priority: High Code(s): C71.9 - MALIGNANT NEOPLASM OF BRAIN, UNSPECIFIED Comment: - Wheelchair bound - High risk for continued back pain, decompensation, pressure wounds and UTIs - Supportive care (7) Neurogenic bladder Current Visit: No Status: Chronic Priority: High Code(s): N31.9 - NEUROMUSCULAR DYSFUNCTION OF BLADDER, UNSPECIFIED Comment: - Arriaga care; Arriaga changed due to UTI this hospital stay (8) Neurogenic bowel Current Visit: No Status: Chronic Priority: High Code(s): K59.2 - NEUROGENIC BOWEL, NOT ELSEWHERE CLASSIFIED SNOMED Code(s): 862181703 Comment: - S/P diverting colostomy to prevent further skin breakdown - Cleared per surgery Status and Disposition: Remain inpatient, reinforce PT and DC home.
[2017-07-22] MEDS: cefTRIAXone(*) 1 GM in D5W 50 ML BAG* 50 ML IVPB SCH ×2 (16:34→18:09)
[2017-07-23] MEDS: Heparin VIAL(*) 5000 UNITS/ML VIAL (FIVE THOUSAND) SUBCUT SCH ×3 (06:29→21:47)
[2017-07-23] MEDS: fentaNYL Patch Check Q Shift 1 NOTE SCH ×2 (06:30→18:47)
[2017-07-23] MEDS: Omeprazole CAP* 20 MG PO SCH (07:34)
[2017-07-23] MEDS: oxyCODONE ORAL.SOLN* 5 MG/5 ML UDC PO PRN ×3 (08:25→17:39)
[2017-07-23] MEDS: Cyanocobalamin TAB* 500 MCG PO SCH (08:26)
[2017-07-23] MEDS: Furosemide TAB* 40 MG PO SCH (08:26)
[2017-07-23] MEDS: Pregabalin CAP(*) 50 MG PO SCH ×3 (08:26→21:45)
[2017-07-23] MEDS: Folic Acid TAB* 1 MG PO SCH (08:27)
[2017-07-23] MEDS: Cholecalciferol TAB* 1000 UNITS PO SCH (08:27)
[2017-07-23] MEDS: Zinc Sulfate CAP* 220 MG PO SCH (08:28)
[2017-07-23] MEDS: Ascorbic Acid TAB* 500 MG PO SCH (08:28)
[2017-07-23] MEDS: Lisinopril TAB* 10 MG PO SCH (08:28)
[2017-07-23] MEDS: Lactobacillus Acidophilu (GG)* 1 CAP CAP PO SCH (08:28)
[2017-07-23] MEDS: Ferrous Gluconate TAB* 324 MG TAB PO SCH (08:28)
[2017-07-23] MEDS: Potassium Chlor TAB* 10 MEQ TAB.ER PO SCH (08:28)
[2017-07-23] MEDS: Clotrimazole 1% CREAM* 45 GM TOPICAL SCH (08:33)
[2017-07-23] MEDS: Hydrocortisone 1% CREAM* 30 GM TUBE TOPICAL SCH ×3 (08:34→21:50)
[2017-07-23] MEDS ORDERED: oxyCODONE TAB* 5 MG TAB PO SCH ×2 (13:00)
[2017-07-23] MEDS ORDERED: NS 0.9% 1000 ML* 1,000 ML IV SCH ×2 (13:45→18:25)
[2017-07-23 14:05] LABS: EGFR Non-African American 37.4 (>60)
[2017-07-23] MEDS: NS 0.9% 1000 ML* 1,000 ML IV ONE ×2 (14:43→17:37)
[2017-07-23] MEDS ORDERED: NS 0.9% 1000 ML* 1,000 ML IV ONE (17:25)
[2017-07-24] MEDS: Acetaminophen TAB* 325 MG PO PRN (02:39)
[2017-07-24] MEDS: Heparin VIAL(*) 5000 UNITS/ML VIAL (FIVE THOUSAND) SUBCUT SCH ×3 (06:03→22:39)
[2017-07-24] MEDS: fentaNYL Patch Check Q Shift 1 NOTE SCH ×2 (06:31→19:06)
[2017-07-24] MEDS: Omeprazole CAP* 20 MG PO SCH (07:44)
[2017-07-24] MEDS: oxyCODONE ORAL.SOLN* 5 MG/5 ML UDC PO PRN ×3 (07:44→17:30)
[2017-07-24] MEDS: oxyCODONE TAB* 5 MG TAB PO PRN (07:49)
[2017-07-24] MEDS: Folic Acid TAB* 1 MG PO SCH (09:12)
[2017-07-24] MEDS: Pregabalin CAP(*) 50 MG PO SCH ×3 (09:13→20:21)
[2017-07-24] MEDS: Ascorbic Acid TAB* 500 MG PO SCH (09:13)
[2017-07-24] MEDS: Zinc Sulfate CAP* 220 MG PO SCH (09:14)
[2017-07-24] MEDS: Ferrous Gluconate TAB* 324 MG TAB PO SCH (09:14)
[2017-07-24] MEDS: Cyanocobalamin TAB* 500 MCG PO SCH (09:14)
[2017-07-24] MEDS: Potassium Chlor TAB* 10 MEQ TAB.ER PO SCH (09:15)
[2017-07-24] MEDS: Cholecalciferol TAB* 1000 UNITS PO SCH (09:15)
[2017-07-24] MEDS: Lisinopril TAB* 10 MG PO SCH (09:15)
[2017-07-24] MEDS: Lactobacillus Acidophilu (GG)* 1 CAP CAP PO SCH (09:15)
[2017-07-24] MEDS: Hydrocortisone 1% CREAM* 30 GM TUBE TOPICAL SCH ×3 (10:08→20:26)
[2017-07-24] MEDS: Clotrimazole 1% CREAM* 45 GM TOPICAL SCH (10:08)
[2017-07-24 14:36] LABS: EGFR Non-African American 45.8 (>60)
[2017-07-24] MEDS: fentaNYL PATCH 75 MCG/HR* 75 MCG TRANSDERM SCH (17:31)
[2017-07-25] MEDS: Heparin VIAL(*) 5000 UNITS/ML VIAL (FIVE THOUSAND) SUBCUT SCH ×2 (05:50→14:05)
[2017-07-25] MEDS: fentaNYL Patch Check Q Shift 1 NOTE SCH (06:52)
[2017-07-25] MEDS: Omeprazole CAP* 20 MG PO SCH (07:49)
[2017-07-25] MEDS: oxyCODONE TAB* 5 MG TAB PO PRN (07:50)
[2017-07-25] MEDS: Hydrocortisone 1% CREAM* 30 GM TUBE TOPICAL SCH ×2 (07:54→13:55)
[2017-07-25] MEDS: Clotrimazole 1% CREAM* 45 GM TOPICAL SCH (07:54)
[2017-07-25] MEDS ORDERED: NS 0.9% 1000 ML* 1,000 ML IV ONE (08:30)
[2017-07-25] MEDS: Pregabalin CAP(*) 50 MG PO SCH ×2 (08:41→14:05)
[2017-07-25] MEDS: Folic Acid TAB* 1 MG PO SCH (08:41)
[2017-07-25] MEDS: Cyanocobalamin TAB* 500 MCG PO SCH (08:41)
[2017-07-25] MEDS: Potassium Chlor TAB* 10 MEQ TAB.ER PO SCH (08:41)
[2017-07-25] MEDS: Zinc Sulfate CAP* 220 MG PO SCH (08:41)
[2017-07-25] MEDS: Ascorbic Acid TAB* 500 MG PO SCH (08:41)
[2017-07-25] MEDS: Lactobacillus Acidophilu (GG)* 1 CAP CAP PO SCH (08:42)
[2017-07-25] MEDS: Cholecalciferol TAB* 1000 UNITS PO SCH (08:42)
[2017-07-25] MEDS: Lisinopril TAB* 10 MG PO SCH (08:42)
[2017-07-25] MEDS: Ferrous Gluconate TAB* 324 MG TAB PO SCH (08:42)
[2017-07-25] MEDS ORDERED: Furosemide TAB* 20 MG PO SCH (09:00)
[2017-07-25] MEDS: oxyCODONE ORAL.SOLN* 5 MG/5 ML UDC PO PRN (12:45)
[2017-07-25 14:47] VITALS: BP 142/56
--- NOTE | 2017-07-27 15:38 | DS ---
CC: Dr. Griffiths; Dr. Ferguson; Dr. Yassine Castro DISCHARGE SUMMARY: DATE OF ADMISSION: 07/09/17 DATE OF DISCHARGE: 07/25/17 PRIMARY CARE PROVIDER: Dr. Molly Griffiths. GENERAL SURGEON: Dr. Eduard Ferguson. PAIN MEDICINE SPECIALIST: Dr. Yassine Castro. PRINCIPAL DISCHARGE DIAGNOSES: Status post diverting colostomy by Dr. Eduard Ferguson on 07/10/17 with subsequent ischemic colostomy and laparoscopic revision of the colostomy on 07/11/17 with ultimate go od effect and working colostomy. Hospitalization complicated by urinary tract infection, with course of antibiotics. Hospitalization further complicated by dehydration secondary to robust colostomy output and urinary t ract infection with acute on chronic renal insufficiency with creatinine increased to 1.8 up from [facility] of 1.1 to 1.2. SECONDARY DIAGNOSES: 1. 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 2. Sacral osteomyelitis - resolved. 3. Sacral decubitus ulcer, status post muscle flap at [facility] by Dr. Yassine Blankenship (Plastic Surgery). 4. Chronic pain with opiate dependence. 5. Neurogenic bowel and bladder. 6. Obstructive sleep apnea - on CPAP. 7. Chronic renal insufficiency - baseline creatinine 1.2. 8. Asthma. 9. Carotid artery stenosis. 10. Appendectomy. 11. History of right carotid endarterectomy. DISCHARGE MEDICATION REGIMEN: 1. Fentanyl 75 mcg patch q.72 hours. 2. Oxycodone 10 mg by mouth every 4 hours p.r.n. pain - recommend using approximately 3 times daily, but more frequent dosing possible with prescription. 3. Oxycodone 10 mg liquid formulation q.4 hours - recommend using before movements 3 times daily deja und meal time and wheelchair transfers. 4. Vitamin D3 500 units by mouth daily. 5. Tylenol 650 mg by mouth every 6 hours as needed for pain/fever. 6. Vitamin C 500 mg by mouth daily. 7. Aspirin 81 mg by mouth daily. 8. Folic acid 0.5 mg by mouth daily. 9. Clotrimazole cream 1% application daily to affected skin. 10. Discontinued Lomotil given new colostomy. 11. Ferrous gluconate 324 mg by mouth daily. 12. Lactobacillus 1 capsule by mouth daily. 13. Zinc sulfate 220 mg by mouth daily. 14. Medihoney to gluteal cleft twice daily - as per wound care instructions. 15. Vitamin B12 1000 mcg by mouth daily. 16. Furosemide changed to 20 mg by mouth daily for now with reevaluation in 1 week in terms of fluid status and lab work. 17. Hydrocortisone 3 times daily to affected skin areas as needed. 18. Prilosec 40 mg by mouth daily. 19. Lyrica 150 mg by mouth 3 times daily. HISTORY OF PRESENT ILLNESS AND HOSPITAL COURSE: Please see H and P on 07/09/17 by nurse practitioner , Elisa Barr, under the supervision of Dr. Ashley Harper. In brief, Mr. Merino is a 71-year-old mal e with a complicated past medical history primarily with ependymoma and associated pain, course compl icated in the summer of 2016 with sacral decubitus ulcer suffered around an acute illness (pneumonia, urinary tract infection). The patient had a worsening of his sacral decubitus ulcer and sacral oste omyelitis noted and he was treated with IV antibiotics, but ultimately opted for a skin/muscle graft done by Dr. Yassine Blankenship at [facility]. This was accomplished without complication a nd the patient was transferred back to [facility] for ongoing rehabilitation and postsurgi aayush establishment of the graft with a [place] bed. The patient received intensive nursing care and did well over the time period. The patient was noted to have ongoing chronic diarrhea pursuant to h is immobility and paralysis and intestinal colonization and perhaps overgrowth. The patient was john mmended for colostomy for skin graft protection and this was scheduled for 07/10/17. The patient pre sented on 07/09/17 for preoperative stabilization and assessment. The patient proceeded with surgery without difficulty. There was an ischemic component to the colostomy noted by the surgical team and there was a revision done on 07/11/17 this time with good results. There was colostomy teaching dur ing the hospitalization. On hospital day 7, the patient suffered ongoing confusion and intermittent chills that were out of the ordinary. The patient was noted to have an abnormal urinalysis and start ed empirically on aggressive fluids and antibiotics (ceftriaxone). The patient completed a complete course of ceftriaxone though there was nonspecific organism grown. In terms of a bacterial component , the patient did grow Julissa parapsilosis, but this was determined to be a colonization and not the cause of his infection. The patient responded very well with rehydration and had a subsequent episo de of confusion and lethargy that was further complicated by an acute worsening in his creatinine. I t seems that the patient's colostomy output was substantial throughout the hospitalization and he has a tendency to require rehydration. I had a yany discussion with the patient and his that he n eeded to work exquisitely on maintaining adequate hydration and in addition his Lasix dose was decrea sed. The patient's pain control was complicated during the hospitalization, resolved on the ability to administer 10 mg oxycodone doses in either tablet or liquid form, with the liquid primarily being used around transfers because of its more rapid onset and the tablets for intermittent pain control, the q.4-hour frequency was to allow for double doses and ample education when into holding this medic ation for any alteration in mental status. Of note, Mr. Merino seems to suffer prerenal azotemia and this impairs his morphine clearance and he is at high risk for over sedation, but on the other hand, if he is under treated with pain medication, he also suffers and this is unwanted. In all, this is a delicate situation with frequent reevaluations necessary. This certainly places a high burden on t he patient's family, although there are multiple family members who are involved and interested in hi s well being. The patient did well with conditioning and met his PT and OT goals. We will continue to have [facility] nurse services. I requested lab work be done in his home by SAYRA on 07/30/17 with results back to [facility] Griffiths for evaluation of the adequacy of his hydration. The patient is eager to be in the out patient setting in his home. They attained an electronic wheelchair that is going to assist in his a bility to mobilize. There was a question regarding whether a suprapubic catheter would be appropriate as opposed to a chr onic indwelling Fischer. Again, it is turned out not to be a specified bacterial infection and perhaps his alteration in mental status was more attributable to a situation of dehydration/prerenal azotemi a. Nonetheless, there was a request to speak with Dr. Castaneda, the patient's outpatient urologist, then the patient is going to follow up with Dr. Castaneda who cannot see the patient during this hospi talization (although this is a nonacute question regarding the suprapubic catheter). I recommended the patient and his family maintain an opiate diary to understand the total daily dose of his opiates in morphine equivalence and this should be re- presented to Dr. Yassine Castro in out patient followup. I encouraged Ms. Merino to reconnect with the neurosurgery department at [facility] whe re the patient was initially scheduled for dorsal column stimulator. I do think that if he could dec rease his opiate doses overtime, this would decrease his risk of alteration in mental status and comp lications such as sacral decubitus ulcers or aspiration pneumonia or other complication. Mr. Merino is going to follow up with Dr. Griffiths in the outpatient setting. Dr. Griffiths has ki ndly seen the patient intermittently in his home and is very attentive to this case and that is appre ciated. For more questions regarding this hospitalization, please see the full medical record as this is a hi ghly summarized account of a complex hospitalization. TIME SPENT: Total time taken for discharge Mr. Merino was 75 minutes, greater than half that time wa s spent at the bedside conducting discharge education and formulating his plan of care as above. [id number]/[facility] #: [id number]
== END 2017-07-25 15:05 | disposition home health service (06) | DRG 329 ==
LOC: SSU 08:11
PROVIDERS: ADMIT Internal Medicine; ATTEND Internal Medicine
PROC: 0D1N4Z4 Bypass Sigmoid Colon to Cutaneous, Percutaneous Endoscopic Approach (ICD-10-PCS; principal; 2017-07-10)
PROC: 0DBN4ZZ Excision of Sigmoid Colon, Percutaneous Endoscopic Approach (ICD-10-PCS; 2017-07-11)
PROC: 0W9F4ZZ Drainage of Abdominal Wall, Percutaneous Endoscopic Approach (ICD-10-PCS; 2017-07-11)
DX: R15.9 Full incontinence of feces (principal); K55.039 Acute (reversible) ischemia of large intestine, extent unspecified; G82.20 Paraplegia, unspecified; C41.2 Malignant neoplasm of vertebral column; I95.9 Hypotension, unspecified; F11.20 Opioid dependence, uncomplicated; M46.28 Osteomyelitis of vertebra, sacral and sacrococcygeal region; K59.2 Neurogenic bowel, not elsewhere classified; N18.3 Chronic kidney disease, stage 3 (moderate); K91.871 Postprocedural hematoma of a digestive system organ or structure following other procedure; K94.09 Other complications of colostomy; N39.0 Urinary tract infection, site not specified; T83.518A Infection and inflammatory reaction due to other urinary catheter, initial encounter; G89.29 Other chronic pain; G47.33 Obstructive sleep apnea (adult) (pediatric); J45.909 Unspecified asthma, uncomplicated; N31.9 Neuromuscular dysfunction of bladder, unspecified; K21.9 Gastro-esophageal reflux disease without esophagitis; I12.9 Hypertensive chronic kidney disease with stage 1 through stage 4 chronic kidney disease, or unspecified chronic kidney disease; K52.9 Noninfective gastroenteritis and colitis, unspecified; B35.4 Tinea corporis; E87.6 Hypokalemia; Y73.1 Therapeutic (nonsurgical) and rehabilitative gastroenterology and urology devices associated with adverse incidents; Y92.239 Unspecified place in hospital as the place of occurrence of the external cause; Z99.3 Dependence on wheelchair; E86.0 Dehydration; Y83.3 Surgical operation with formation of external stoma as the cause of abnormal reaction of the patient, or of later complication, without mention of misadventure at the time of the procedure
CPT/HCPCS: 36415; 80048; 80053; 81003; 81015; 83735; 84100; 85025; 86140; 86141; 87086; 87106; 88304; 97530; A9270-GY; C1776; J0360; J0694; J0696; J1100; J1170; J1335; J1644; J2405; J2704; J3010; J3490

== ENCOUNTER 2017-12-28 22:38 | Emergency (ER) | payer MEDICARE ==
[2017-12-29 02:08] LABS: Urine Appearance Turbid; Urine Blood 3+ (Negative); Urine Ketones Negative (Negative); Urine Protein 2+(100 mg/dL) (Negative); Urine Specific Gravity 1.005 (1.010-1.030); Urine Urobilinogen Negative (Negative)
[2017-12-29 02:20] LABS: Urine Color Yellow
--- NOTE | 2017-12-29 02:24 | ED ---
Complaint/Male - History of Current Complaint Chief Complaint: EDUrogenitalProblems Time Seen by Provider: 12/29/17 01:51 - Allergies/Home Medications Allergies/Adverse Reactions: Allergies Allergy/AdvReac Type Severity Reaction Status Date / Time atorvastatin [From Lipitor] Allergy HIVES, Verified 12/28/17 23:07 MUSCLE SPASMS PMH/Surg Hx/FS Hx/Imm Hx Endocrine/Hematology History: Denies: Hx Diabetes Cardiovascular History: Reports: Hx Coronary Artery Disease, Hx Hypercholesterolemia, Hx Hypertension, Other Cardiovascular Problems/Disorders - carotid endarterectomy Denies: Hx Pacemaker/ICD, Hx Peripheral Vascular Disease Respiratory History: Reports: Hx Asthma, Hx Sleep Apnea, Other Respiratory Problems/Disorders - LATENT TB GI History: Reports: Hx Gastroesophageal Reflux Disease, Hx Gastrointestinal Bleed, Other GI Disorders - diverting colostomy History: Reports: Hx Chronic Renal Failure - stage 2, Hx Renal Disease, Other Problems/Disorders - neurogenic bladder; indwelling arriaga Musculoskeletal History: Reports: Hx Back Problems - ependymoma and paraplegia, Other Musculoskeletal History - parapelgic d/t ependymoma Denies: Hx Rheumatoid Arthritis, Hx Osteoporosis Sensory History: Reports: Hx Contacts or Glasses, Other Sensory Impairments - paraplegic Denies: Hx Eye Injury, Hx Eye Prosthesis, Hx Glaucoma, Hx Legally Blind, Hx Macular Degeneration, Hx Vision Problem, Hx Deafness, Hx Hearing Aid, Hx Hearing Problem Opthamlomology History: Reports: Hx Contacts or Glasses, Other Sensory Impairments - paraplegic Denies: Hx Eye Injury, Hx Eye Prosthesis, Hx Glaucoma, Hx Legally Blind, Hx Macular Degeneration, Hx Vision Problem Neurological History: Reports: Hx Spinal Cord Injury - ependymoma, Other Neuro Impairments/Disorders - paraplegia Denies: Hx Dementia, Hx Headaches, Hx Seizures, Hx Transient Ischemic Attacks (TIA) Psychiatric History: Denies: Hx Anxiety, Hx Depression, Hx Panic Disorder - Cancer History Cancer Type, Location and Year: ependymoma on spine - multiple surgeries Hx Chemotherapy: Yes Hx Radiation Therapy: Yes - Surgical History Surgery Procedure, Year, and Place: SPINAL SURGERY - 4 SURGERIES FROM [id number] (EPENDYMOMA), APPENDECTOMY 12/21 - Rt ENDARTERECTOMY 2014, TONSILLECTOMY ( as a child), Drainage of sacral wound, flap surgery to heal sacral wound. Fall 2016 - flap surgery for decubitus ulcer, then colostomy and revision Hx Anesthesia Reactions: No - Immunization History Date of Tetanus Vaccine: PT STATES UNSURE Infectious Disease History: No Infectious Disease History: Reports: Hx Clostridium Difficile - current visit, Hx Hepatitis - childhood Denies: Hx of Known/Suspected MRSA, Hx Shingles, Hx Tuberculosis - will test + d/t vaccine, History Other Infectious Disease, Traveled Outside the [place] in Last 30 Days - Family History Known Family History: Positive: Other - NO GI ISSUES - Social History Alcohol Use: None Alcohol Amount: one a week Substance Use Type: Reports: None Substance Use Comment - Amount & Last Used: tramadol Hx Tobacco Use: No Smoking Status (MU): Never Smoked Tobacco Have You Smoked in the Last Year: No Physical Exam Vital Signs On Initial Exam: Initial Vitals Temp Pulse Resp BP Pulse Ox 98.8 F 97 16 193/104 94 12/28/17 23:00 12/28/17 23:00 12/28/17 23:00 12/28/17 23:00 12/28/17 23:00 Diagnostics - Vital Signs Vital Signs Temp Pulse Resp BP Pulse Ox 12/28/17 23:53 98.4 F 103 19 210/97 12/28/17 23:00 98.8 F 97 16 193/104 94 - Laboratory Lab Results: Lab Results 12/29/17 Range/Units 01:55 Urine Color Yellow Urine Appearance Turbid Urine pH 6.0 (5-9) Ur Specific [place] 1.005 L (1.010-1.030) Urine Protein 2+(100 mg/dl) A (Negative) Urine Ketones Negative (Negative) Urine Blood 3+ A (Negative) Urine Nitrate Negative (Negative) Urine Bilirubin Negative (Negative) Urine Urobilinogen Negative (Negative) Ur Leukocyte Esterase 3+ A (Negative) Urine WBC (Auto) 3+(>20/hpf) A (Absent) Urine RBC (Auto) 3+(>10/hpf) A (Absent) Ur Squamous Epith Cells Present A (Absent) Urine Bacteria 1+ A (Absent) Urine Glucose Negative (Negative) Lab Statement: Any lab studies that have been ordered have been reviewed, and results considered in the medical decision making process.
[2017-12-29] MEDS ORDERED: Ciprofloxacin TAB* 500 MG PO ONE (02:34)
--- NOTE | 2017-12-29 02:37 | ED ---
GI/ HPI - HPI Summary HPI Summary: 30 female presents ER with complaints of Arriaga catheter complications. Has been having blood pass through catheter and has also had urinary retention and 6 PM today. Patient has had Arriaga catheter due to neurogenic bladder for the past 2 years. Patient had this most recent Arriaga catheter placed 3 weeks ago. Denies any fever, chills, abdominal pain, low back pain, nausea or vomiting. Admits to some suprapubic pressure and states it is very uncomfortable 03/18. Patient has history of high blood pressure. No other symptoms at this time. - History of Current Complaint Chief Complaint: EDUrogenitalProblems Time Seen by Provider: 12/29/17 01:51 Stated Complaint: CATH PROBLEM Hx Obtained From: Patient, Family/Rework Operator - Onset/Duration: Started Hours Ago, Still Present Timing: Constant Severity: Moderate Current Severity: Moderate Pain Intensity: 9 Location of Pain: Suprapubic Pain Characteristics: Pressure Associated Signs and Symptoms: Positive: Hematuria, Other: - Catheter problem - Additional Pertinent History Primary Care Physician: TIA - Allergy/Home Medications Allergies/Adverse Reactions: Allergies Allergy/AdvReac Type Severity Reaction Status Date / Time atorvastatin [From Lipitor] Allergy HIVES, Verified 12/28/17 23:07 MUSCLE SPASMS PMH/Surg Hx/FS Hx/Imm Hx Endocrine/Hematology History: Denies: Hx Diabetes Cardiovascular History: Reports: Hx Coronary Artery Disease, Hx Hypercholesterolemia, Hx Hypertension, Other Cardiovascular Problems/Disorders - carotid endarterectomy Denies: Hx Pacemaker/ICD, Hx Peripheral Vascular Disease Respiratory History: Reports: Hx Asthma, Hx Sleep Apnea, Other Respiratory Problems/Disorders - LATENT TB GI History: Reports: Hx Gastroesophageal Reflux Disease, Hx Gastrointestinal Bleed, Other GI Disorders - diverting colostomy History: Reports: Hx Chronic Renal Failure - stage 2, Hx Renal Disease, Other Problems/Disorders - neurogenic bladder; indwelling arriaga Musculoskeletal History: Reports: Hx Back Problems - ependymoma and paraplegia, Other Musculoskeletal History - parapelgic d/t ependymoma Denies: Hx Rheumatoid Arthritis, Hx Osteoporosis Sensory History: Reports: Hx Contacts or Glasses, Other Sensory Impairments - paraplegic Denies: Hx Eye Injury, Hx Eye Prosthesis, Hx Glaucoma, Hx Legally Blind, Hx Macular Degeneration, Hx Vision Problem, Hx Deafness, Hx Hearing Aid, Hx Hearing Problem Opthamlomology History: Reports: Hx Contacts or Glasses, Other Sensory Impairments - paraplegic Denies: Hx Eye Injury, Hx Eye Prosthesis, Hx Glaucoma, Hx Legally Blind, Hx Macular Degeneration, Hx Vision Problem Neurological History: Reports: Hx Spinal Cord Injury - ependymoma, Other Neuro Impairments/Disorders - paraplegia Denies: Hx Dementia, Hx Headaches, Hx Seizures, Hx Transient Ischemic Attacks (TIA) Psychiatric History: Denies: Hx Anxiety, Hx Depression, Hx Panic Disorder - Cancer History Cancer Type, Location and Year: ependymoma on spine - multiple surgeries Hx Chemotherapy: Yes Hx Radiation Therapy: Yes - Surgical History Surgery Procedure, Year, and Place: SPINAL SURGERY - 4 SURGERIES FROM [id number] (EPENDYMOMA), APPENDECTOMY 12/21 - Rt ENDARTERECTOMY 2014, TONSILLECTOMY ( as a child), Drainage of sacral wound, flap surgery to heal sacral wound. Fall 2016 - flap surgery for decubitus ulcer, then colostomy and revision Hx Anesthesia Reactions: No - Immunization History Date of Tetanus Vaccine: PT STATES UNSURE Infectious Disease History: No Infectious Disease History: Reports: Hx Clostridium Difficile - current visit, Hx Hepatitis - childhood Denies: Hx of Known/Suspected MRSA, Hx Shingles, Hx Tuberculosis - will test + d/t vaccine, History Other Infectious Disease, Traveled Outside the [place] in Last 30 Days - Family History Known Family History: Positive: Other - NO GI ISSUES - Social History Alcohol Use: None Alcohol Amount: one a week Substance Use Type: Reports: None Substance Use Comment - Amount & Last Used: tramadol Hx Tobacco Use: No Smoking Status (MU): Never Smoked Tobacco Have You Smoked in the Last Year: No Review of Systems Constitutional: Negative Cardiovascular: Negative Respiratory: Negative Gastrointestinal: Negative Positive: hematuria, other - catheter complications Skin: Negative All Other Systems Reviewed And Are Negative: Yes Physical Exam Triage Information Reviewed: Yes Vital Signs On Initial Exam: Initial Vitals Temp Pulse Resp BP Pulse Ox 98.8 F 97 16 193/104 94 12/28/17 23:00 12/28/17 23:00 12/28/17 23:00 12/28/17 23:00 12/28/17 23:00 Elevated BP noted Vital Signs Reviewed: Yes Appearance: Positive: Well-Appearing, No Pain Distress, Well-Nourished Skin: Positive: Warm, Skin Color Reflects Adequate Perfusion, Dry. Negative: Cold, Cyanosis @, Pale, Erythema @ Head/Face: Positive: Normal Head/Face Inspection Eyes: Positive: Conjunctiva Clear ENT: Positive: TMs normal Neck: Positive: Supple, Nontender Respiratory/Lung Sounds: Positive: Clear to Auscultation, Breath Sounds Present. Negative: Rales, Rhonchi, Wheezes Cardiovascular: Positive: Normal, RRR, Pulses are Symmetrical in both Upper and Lower Extremities - I. Negative: Murmur, Rub Abdomen Description: Positive: Nontender, Soft Bowel Sounds: Positive: Present Musculoskeletal: Positive: Normal - for patient's chronic conditions, no change Neurological: Positive: Normal, Alert, Oriented to Person Place, Time Diagnostics - Vital Signs Vital Signs Temp Pulse Resp BP Pulse Ox 12/29/17 02:13 98 193/87 95 12/28/17 23:53 98.4 F 103 19 210/97 12/28/17 23:00 98.8 F 97 16 193/104 94 - Laboratory Lab Results: Lab Results 12/29/17 Range/Units 01:55 Urine Color Yellow Urine Appearance Turbid Urine pH 6.0 (5-9) Ur Specific [place] 1.005 L (1.010-1.030) Urine Protein 2+(100 mg/dl) A (Negative) Urine Ketones Negative (Negative) Urine Blood 3+ A (Negative) Urine Nitrate Negative (Negative) Urine Bilirubin Negative (Negative) Urine Urobilinogen Negative (Negative) Ur Leukocyte Esterase 3+ A (Negative) Urine WBC (Auto) 3+(>20/hpf) A (Absent) Urine RBC (Auto) 3+(>10/hpf) A (Absent) Ur Squamous Epith Cells Present A (Absent) Urine Bacteria 1+ A (Absent) Urine Glucose Negative (Negative) Lab Statement: Any lab studies that have been ordered have been reviewed, and results considered in the medical decision making process. GIGU Course/Dx - Course Course Of Treatment: Blood catheter was replaced by Raya R and without complication. Was able to obtain urine and patient's symptoms were resolved. Urinalysis sent to lab. Showed leukocytes blood and bacteria. Due to the bacteria and increased amounts of blood and leukocytes with recent urinary retention Will treat with short course of Cipro. Increase fluid intake. Follow -up with urologist and primary care provider. Patient's blood pressure was elevated typically runs around 160/80. Take amlodipine and has a clonidine patch. Patient will follow up with primary care provider and cube cutter to reevaluate hypertension. Spoke with Dr. Mcmillan about case/hypertension who stated it was okay to discharge the patient blood pressure being 190/86, this did not meet hypertensive crisis criteria per Dr. Mcmillan. Patient was asymptomatic at this time. Patient aware worsening signs and symptoms watch out for. Follow-up with primary care provider. No other concerns at this time. Normal vitals and physical exam otherwise. - Diagnoses Differential Diagnoses - Male: Cystitis, Urinary Tract Infection, Other - Urinary retention, Arriaga catheter complication, hypertension Provider Diagnoses: Arriaga catheter problem, UTI (urinary tract infection), Hypertension Discharge - Sign-Out/Discharge Documenting (check all that apply): Discharge/Admit/Transfer - Discharge Plan Condition: Good Disposition: HOME Prescriptions: Ciprofloxacin TAB* [Cipro 500 MG TAB*] 500 mg PO DAILY #4 tab Patient Education Materials: Urinary Tract Infection in Women (ED), Arriaga Catheter Placement and Care (ED) Referrals: Molly Griffiths MD [Primary Care Provider] - Additional Instructions: Take prescribed medication as directed.. Increase fluid intake.. Any new or worsening symptoms or if catheter becomes problematic again please seek medical attention. Follow-up with urologist Follow-up with primary care/cardiology for re-eval for hypertension. - Billing Disposition and Condition Condition: GOOD Disposition: Home
[2017-12-29 03:55] VITALS: BP 200/96
--- NOTE | 2017-12-31 07:10 | PN ---
Progress Note - Progress Note Date of Service: 12/29/17 Note: Urine culture preliminary grew Serratia Marcescens > 100,000 Patient was placed on Cipro prior to discharge We'll await sensitivities at this time STEPHON Acosta
--- NOTE | 2018-01-01 06:33 | PN ---
Progress Note - Progress Note Date of Service: 01/01/18 Note: Patient placed on cipro which final culture is sensitive to. no further action required.
== END 2017-12-29 03:54 | disposition home or self-care (01) ==
LOC: ED 22:38
DX: T83.511A Infection and inflammatory reaction due to indwelling urethral catheter, initial encounter (principal); R31.9 Hematuria, unspecified; I10 Essential (primary) hypertension
CPT/HCPCS: 81003; 81015; 87077; 87086; 87186; 99283; A9270-GY

== ENCOUNTER 2019-01-10 13:28 | Emergency (ER) | payer MEDICARE ==
[2019-01-10] MEDS ORDERED: Morphine 10 MG/ML VIAL (1 ml) IM ONE ×2 (14:51→16:37)
--- NOTE | 2019-01-10 15:45 | ED ---
Back Pain - HPI Summary HPI Summary: Patient is a 73 y/o M presenting to ED with complaints of constipation and lower back pain. Back pain is described as "shooting" and is noted to radiate to his legs bilaterally. 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 He states that the present episode of pain that he is experiencing is different from the pain he typically experiences with his tumor, noting that the new pain is located above his tumor. Current presentation of pain onset three days ago. Patient had a large BM four days ago , and since three days ago he has not had any ostomy output. Patient was given a laxative earlier today by with no effect. Patient has been taking lyrica / levorphanol, diclofenac patches without relief. Patient states he was advised by PCP to get MRI to recheck tumor and to come to ED for pain relief. On triage , pain is rated 7/10, nothing is noted to aggravate/alleviate Sx. PMHx of CAD, HTN, HLD, asthma, GERD, GI bleed, chronic renal failure. Home medications and allergies are reviewed. - History of Current Complaint Chief Complaint: EDBackInjuryPain Stated Complaint: BACK/STOMACH PAIN PER PT Time Seen by Provider: 01/10/19 14:31 Hx Obtained From: Patient Onset/Duration: Lasting Days - 3, Still Present Onset/Duration: Started Days Ago - 3, Still Present Timing: Constant, Lasting Days - 3 Back Pain Location: Is Discrete @ - lower back Severity Currently: Severe Pain Intensity: 7 Pain Scale Used: 0-10 Numeric Aggravating Symptom(s): Nothing Alleviating Symptom(s): Nothing Associated Signs And Symptoms: Positive: Other - constipation - Allergies/Home Medications Allergies/Adverse Reactions: Allergies Allergy/AdvReac Type Severity Reaction Status Date / Time atorvastatin [From Lipitor] Allergy HIVES, Verified 01/10/19 15:03 MUSCLE SPASMS PMH/Surg Hx/FS Hx/Imm Hx Endocrine/Hematology History: Denies: Hx Diabetes Cardiovascular History: Reports: Hx Coronary Artery Disease, Hx Hypercholesterolemia, Hx Hypertension, Other Cardiovascular Problems/Disorders - carotid endarterectomy Denies: Hx Pacemaker/ICD, Hx Peripheral Vascular Disease Respiratory History: Reports: Hx Asthma, Hx Sleep Apnea, Other Respiratory Problems/Disorders - LATENT TB GI History: Reports: Hx Gastroesophageal Reflux Disease, Hx Gastrointestinal Bleed, Other GI Disorders - diverting colostomy History: Reports: Hx Chronic Renal Failure - stage 2, Hx Renal Disease, Other Problems/Disorders - neurogenic bladder; indwelling arriaga Musculoskeletal History: Reports: Hx Back Problems - ependymoma and paraplegia, Other Musculoskeletal History - parapelgic d/t ependymoma Denies: Hx Rheumatoid Arthritis, Hx Osteoporosis Sensory History: Reports: Hx Contacts or Glasses, Other Sensory Impairments - paraplegic Denies: Hx Eye Injury, Hx Eye Prosthesis, Hx Glaucoma, Hx Legally Blind, Hx Macular Degeneration, Hx Vision Problem, Hx Deafness, Hx Hearing Aid, Hx Hearing Problem Opthamlomology History: Reports: Hx Contacts or Glasses, Other Sensory Impairments - paraplegic Denies: Hx Eye Injury, Hx Eye Prosthesis, Hx Glaucoma, Hx Legally Blind, Hx Macular Degeneration, Hx Vision Problem Neurological History: Reports: Hx Spinal Cord Injury - ependymoma, Other Neuro Impairments/Disorders - paraplegia Denies: Hx Dementia, Hx Headaches, Hx Seizures, Hx Transient Ischemic Attacks (TIA) Psychiatric History: Denies: Hx Anxiety, Hx Depression, Hx Panic Disorder - Cancer History Cancer Type, Location and Year: 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 Fall 2016 - flap surgery for decubitus ulcer, then colostomy and revision Hx Anesthesia Reactions: No - Immunization History Date of Tetanus Vaccine: PT STATES UNSURE Infectious Disease History: No Infectious Disease History: Reports: Hx Clostridium Difficile - current visit, Hx Hepatitis - childhood Denies: Hx of Known/Suspected MRSA, Hx Shingles, Hx Tuberculosis - will test + d/t vaccine, History Other Infectious Disease, Traveled Outside the [place] in Last 30 Days - Family History Known Family History: Positive: Other - NO GI ISSUES - Social History Alcohol Use: None Alcohol Amount: one a week Substance Use Type: Reports: None Substance Use Comment - Amount & Last Used: tramadol Hx Tobacco Use: No Smoking Status (MU): Never Smoked Tobacco Have You Smoked in the Last Year: No Review of Systems Genitourinary: Other - positive - constipation Musculoskeletal: Other - positive - back pain All Other Systems Reviewed And Are Negative: Yes Physical Exam - Summary Physical Exam Summary: Appearance: The patient is well-nourished in no acute distress and in no acute pain. Skin: The skin is warm and dry and skin color reflects adequate perfusion. HEENT: The head is normocephalic and atraumatic. The pupils are equal and reactive. The conjunctivae are clear and without drainage. Nares are patent and without drainage. Mouth reveals moist mucous membranes and the throat is without erythema and exudate. The external ears are intact. The ear canals are patent and without drainage. The tympanic membranes are intact. Neck: The neck is supple with full range of motion and non-tender. There are no carotid bruits. There is no neck vein distension. Respiratory: Chest is non-tender. Lungs are clear to auscultation and breath sounds are symmetrical and equal. Cardiovascular: Heart is regular rate and rhythm. There is no murmur or rub auscultated. There is no peripheral edema and pulses are symmetrical and equal. Abdomen: The abdomen is soft and non-tender. There are normal bowel sounds heard in all four quadrants and there is no organomegaly palpated. Musculoskeletal: There is tenderness at the paralumbar area. Extremities are non -tender with full range of motion. There is good capillary refill. There is no peripheral edema or calf tenderness elicited. Neurological: Patient is alert and oriented to person, place and time. The patient has symmetrical motor strength in all four extremities. Cranial nerves are grossly intact. Deep tendon reflexes are symmetrical and equal in all four extremities. Psychiatric: The patient has an appropriate affect and does not exhibit any anxiety or depression. Triage Information Reviewed: Yes Vital Signs On Initial Exam: Initial Vitals Temp Pulse Resp BP Pulse Ox 98 F 78 16 184/77 94 01/10/19 13:29 01/10/19 13:29 01/10/19 13:29 01/10/19 13:29 01/10/19 13:29 Vital Signs Reviewed: Yes Diagnostics - Vital Signs Vital Signs Temp Pulse Resp BP Pulse Ox 01/10/19 15:18 18 01/10/19 13:29 98 F 78 16 184/77 94 - Laboratory Result Diagrams: 01/10/19 16:38 01/10/19 16:38 Lab Statement: Any lab studies that have been ordered have been reviewed, and results considered in the medical decision making process. Re-Evaluation - Re-Evaluation First Eval Re-Evaluation Time: 17:48 Comment: Results of labs and tests were discussed so far. ABD/PEL CT to be obtained. Back Pain Course/Dx - Course Course Of Treatment: Mr. Merino presented with gradually worsening mid back pain. He came into his wheelchair and was given IM morphine to help with the transfer over to the [facility]. Once I had him in the [facility] I evaluated his abdomen which was soft and nontender. CT was obtained and by my reading shows an obstruction of the right kidney. I'm still pending a urine on him but I suspect he'll have to be transferred as we have no neurological coverage today. He's been given pain medication a couple of times and is stable and is not toxic in appearance although he does appear to be in pain. - Diagnoses Provider Diagnoses: Nephrolithiasis, Hydronephrosis, Hyponatremia, Mass of spine, Renal failure, UTI (urinary tract infection) - Critical Care Time Critical Care Time: 30-74 min Discharge - Sign-Out/Discharge Documenting (check all that apply): Patient Departure Patient Received Moderate/Deep Sedation with Procedure: No - Discharge Plan Condition: Stable Disposition: TRANS HIGHER LVL OF CARE FAC Referrals: Molly Griffiths MD [Primary Care Provider] - - Billing Disposition and Condition Condition: STABLE Disposition: Trans Higher Lvl of Care Fac - Attestation Statements Document Initiated by Zeus: Yes Documenting Scribe: CHRISTINA WATTS Provider For Whom Zeus is Documenting (Include Credential): CHANEL VILLA MD Scribe Attestation: I, CHRISTINA WATTS, scribed for CHAENL VILLA MD on 01/11/19 at 1006. Scribe Documentation Reviewed: Yes Provider Attestation: The documentation as recorded by the CHRISTINA rodriguez accurately reflects the service I personally performed and the decisions made by me, CHANEL VILLA MD Status of Scribe Document: Viewed
[2019-01-10 16:56] LABS: ABS Basophils 0.1 10^3/ul (0-0.2); ABS Eosinophils 0.2 10^3/ul (0-0.6); ABS Lymphocytes 1.4 10^3/ul (1.0-4.8); ABS Monocytes 1.3 10^3/ul (0-0.8); ABS Neutrophils 6.8 10^3/ul (1.5-7.7); Eosinophil % 2.2 %; Hematocrit 39 % (42-52); Hemoglobin 13.4 g/dL (14.0-18.0); Lymphocyte % 14.4 %; Mean Corpuscular HGB Conc 35 g/dL (31-36); Mean Corpuscular Hemoglobin 28 pg (27-31); Mean Corpuscular Volume 81 fL (80-94); Mean Platelet Volume 9.1 fL (7.4-10.4); Nucleated Red Blood Cells % 0.2; Platelet Count 208 10^3/uL (150-450); Red Blood Count 4.74 10^6 /uL (4.18-5.48); Red Cell Distribution Width 14 % (10-15); White Blood Count 9.8 10^3/uL (3.5-10.8)
[2019-01-10 17:13] LABS: Albumin 4.4 g/dL (3.2-5.2); Albumin/Globulin Ratio 1.5 (1-3); BUN/Creatinine Ratio 38.5 (8-20); C Reactive Protein 110.55 mg/L (<8.01); Calcium 10.4 mg/dL (8.6-10.3); EGFR Non-African American 30.6 (>60); Potassium 4.8 mmol/L (3.5-5.0); Total Bilirubin 0.4 mg/dL (0.2-1.0); Total Protein 7.4 g/dL (6.4-8.9)
--- NOTE | 2019-01-10 20:59 | ED ---
Progress - Progress Note Progress Note: The patient is a sign-out from Dr. Jax Stroud MD, to Dr. Polina Hodge MD, at change of shift at 1900 on 01/10/219, pending Abd/Pel CT results and disposition. In the ED course, the patient was administered Ceftriaxone. Abd/Pel CT Impression: 1. Large expansile mass in lumbar spine, centered in the spinal canal, extending from L1/L2 through the sacrum, measuring approximately 6.1 x 8.2 x 17 cm AP, laterally, and craniocaudad. The lesion was incompletely included on prior CT but visualized portions appear to have increased in size since that time. Recommend correlation with MRI for better characterization. Current evaluation limited by lack of IV contrast. 2. Partial collapse with mixed lytic and sclerotic change and fragmentation of the L3 and L4 vertebral bodies which are displaced anteriorly secondary to the spinal mass, now with approximately 1.6 cm L2 on L3 retrolisthesis. 3. Left abdominal colostomy with herniation of charlene-stomal fat. No bowel obstruction. 4. Mild right hydronephrosis and proximal hydroureter with poor visualization of lower right ureter and surgical changes along its course. Correlate with surgical history. 5. Cholelithiasis with distended gallbladder but no gallbladder wall thickening or pericholecystic stranding. If there is clinical concern for cholecystitis, right upper quadrant ultrasound is recommended. 6. Spine stimulator in place. Other non-emergent findings as above. UA reveals specific of 1.006, 1+ blood, 3+ leukocyte esterase, 3+ WBC, 1+ RBC, and 1+ bacteria. At 2011, I discussed the imaging and lab results with the patient and his . His pain has improved with pain medication administration. With findings of Abd/Pel CT, blood work, and UA, the patient will need to be transferred as there is not a urologist available [place] [facility] [place] with [place]. The urologist that he usually sees for his previous GI conditions is Dr. Castaneda. At 2039, the patient and his agree with transfer to [facility] since the patient has been there before. At 2057, I spoke with a nurse from the transfer center concerning the patient's case. The nurse will speak with a hospitalist at [facility] for further consultation of the transfer. At 2225, I spoke with [facility] concerning the findings for the patient. They would like further analysis of the CT. I spoke with radiology at [address] results. At 2305, I spoke with [facility] again concerning CT results. They are unable to accept the patient at this time due to unavailability of beds. At 0000, I spoke with the transfer center concerning the needs of the patient either to be transferred somewhere else or be admitted to [facility]. I spoke with Dr. Booker, hospitalist, at 0004, who believes that the patient is not appropriate for admission because urology is not available until 01/16. The patient and his agree to transfer to [facility] since the patient is unable to be transferred to [facility] at 0030. At 0035, I spoke with the transfer center concerning transfer to [facility]. They will call back after calling the hospital. The patient is requesting pain medication at 0044. I will order Morphine since it helped relieve his pain earlier in his stay. At 0104, I spoke with Dr. Vasquez from [facility], and he accepts the patient for transfer. He is diagnosed with nephrolithiasis with hydronephrosis with worsening renal failure, hyponatremia, spinal mass, and UTI. Patient and his are agreeable with transfer and understand the need for further workup at this time. - Results/Orders Results/Orders: Abd/Pel CT Impression: 1. Large expansile mass in lumbar spine, centered in the spinal canal, extending from L1/L2 through the sacrum, measuring approximately 6.1 x 8.2 x 17 cm AP, laterally, and craniocaudad. The lesion was incompletely included on prior CT but visualized portions appear to have increased in size since that time. Recommend correlation with MRI for better characterization. Current evaluation limited by lack of IV contrast. 2. Partial collapse with mixed lytic and sclerotic change and fragmentation of the L3 and L4 vertebral bodies which are displaced anteriorly secondary to the spinal mass, now with approximately 1.6 cm L2 on L3 retrolisthesis. 3. Left abdominal colostomy with herniation of charlene-stomal fat. No bowel obstruction. 4. Mild right hydronephrosis and proximal hydroureter with poor visualization of lower right ureter and surgical changes along its course. Correlate with surgical history. 5. Cholelithiasis with distended gallbladder but no gallbladder wall thickening or pericholecystic stranding. If there is clinical concern for cholecystitis, right upper quadrant ultrasound is recommended. 6. Spine stimulator in place. Other non-emergent findings as above. ED physician has reviewed this report. Re-Evaluation - Re-Evaluation First Eval Re-Evaluation Time: 20:12 Change: Improved Comment: The patient's pain has improved, and he is sleeping but arousable. I discussed the results of the Abd/Pel CT, blood work, and UA with the patient and his . I recommended transfer for the patient as there is not a urologist available at this time. Second Eval Re-Evaluation Time: 20:40 Change: Unchanged Comment: The patient and his state that they prefer [facility] for transfer because the patient has had procedures there before. Third Eval Re-Evaluation Time: 00:30 Change: Unchanged Comment: I spoke with the patient concerning transfer to another hospital. They prefer [facility]. Fourth Eval Re-Evaluation Time: 00:44 Change: Worse Comment: The patient is requesting pain medication. Course/Dx - Course Course Of Treatment: The patient is a sign-out from Dr. Jax Stroud MD, to Dr. Polina Valenzuela MD, at change of shift at 1900 on 01/10/219, pending Abd/Pel CT results and disposition. In the ED course, the patient was administered Ceftriaxone. Abd/Pel CT Impression: 1. Large expansile mass in lumbar spine, centered in the spinal canal, extending from L1/L2 through the sacrum, measuring approximately 6.1 x 8.2 x 17 cm AP, laterally, and craniocaudad. The lesion was incompletely included on prior CT but visualized portions appear to have increased in size since that time. Recommend correlation with MRI for better characterization. Current evaluation limited by lack of IV contrast. 2. Partial collapse with mixed lytic and sclerotic change and fragmentation of the L3 and L4 vertebral bodies which are displaced anteriorly secondary to the spinal mass, now with approximately 1.6 cm L2 on L3 retrolisthesis. 3. Left abdominal colostomy with herniation of charlene-stomal fat. No bowel obstruction. 4. Mild right hydronephrosis and proximal hydroureter with poor visualization of lower right ureter and surgical changes along its course. Correlate with surgical history. 5. Cholelithiasis with distended gallbladder but no gallbladder wall thickening or pericholecystic stranding. If there is clinical concern for cholecystitis, right upper quadrant ultrasound is recommended. 6. Spine stimulator in place. Other non-emergent findings as above. UA reveals specific of 1.006, 1+ blood, 3+ leukocyte esterase , 3+ WBC, 1+ RBC, and 1+ bacteria. At 2011, I discussed the imaging and lab results with the patient and his . His pain has improved with pain medication administration. With findings of Abd/Pel CT, blood work, and UA, the patient will need to be transferred as there is not a urologist available at [facility] [place] consult with the patient. The urologist that he usually sees for his previous GI conditions is Dr. Castaneda. At 2039, the patient and his agree with transfer to [facility] since the patient has been there before. At 2057, I spoke with a nurse from the transfer center concerning the patient's case. The nurse will speak with a hospitalist at [facility] for further consultation of the transfer. At 2225, I spoke with [facility] concerning the findings for the patient. They would like further analysis of the CT. I spoke with radiology at [address] results. At 2304, I spoke with [facility] again concerning CT results. They are unable to accept the patient at this time due to unavailability of beds. At , I spoke with the transfer center concerning the needs of the patient either to be transferred somewhere else or be admitted to [facility]. I spoke with Dr. Booker, hospitalist, at 0004, who believes that the patient is not appropriate for admission because urology is not available until 01/16. The patient and his agree to transfer to [facility] since the patient is unable to be transferred to [facility] at 0030. At 0035, I spoke with the transfer center concerning transfer to [facility]. They will call back after calling the hospital. The patient is requesting pain medication at 0044. I will order Morphine since it helped relieve his pain earlier in his stay. At 0104, I spoke with Dr. Vasquez from [facility], and he accepts the patient for transfer. He is diagnosed with nephrolithiasis with hydronephrosis with worsening renal failure, hyponatremia, spinal mass, and UTI. Patient and his are agreeable with transfer and understand the need for further workup at this time. - Diagnoses Provider Diagnoses: Nephrolithiasis, Hydronephrosis, Hyponatremia, Mass of spine, Renal failure, UTI (urinary tract infection) - Provider Notifications Instructed by Provider To: Transfer - At 2057, I spoke with a nurse from the transfer center concerning the patient's case. The nurse will speak with a hospitalist at [facility] for further consultation of the transfer. At 2225, I spoke with [facility] concerning the findings for the patient. They would like further analysis of the CT. I spoke with radiology at [address] results. At 2304, I spoke with [facility] again concerning CT results. They are unable to accept the patient at this time due to unavailability of beds. At 0000 , I spoke with the transfer center concerning the needs of the patient either to be transferred somewhere else or be admitted to [facility]. I spoke with Dr. Booker , hospitalist, at 0004, who believes that the patient is not appropriate for admission because urology is not available until 01/16. At 0035, I spoke with the transfer center concerning transfer to [facility]. They will call back after calling the hospital. At 0104, I spoke with Dr. Vasquez from [facility], and he accepts the patient for transfer. Reason For Transfer: Specialty available at [facility] but not dental office receptionist. Discharge - Sign-Out/Discharge Documenting (check all that apply): Patient Departure - Patient is accepted for transfer to [facility] by Dr. Vasquez., Receiving Sign-Out Receiving patient FROM: Jax Stroud - Patient is a sign-out from Dr. Stroud at shift change pending Abd/Pel CT results and disposition. Patient Received Moderate/Deep Sedation with Procedure: No - Discharge Plan Condition: Stable Disposition: TRANS HIGHER LVL OF CARE FAC Referrals: Molly Griffiths MD [Primary Care Provider] - - Billing Disposition and Condition Condition: STABLE Disposition: Trans Higher Lvl of Care Fac - Attestation Statements Document Initiated by Zeus: Yes Documenting Scribe: Leticia Navarro Provider For Whom Zeus is Documenting (Include Credential): Dr. Polina Valenzuela MD Scribe Attestation: Leticia Fulton scribed for Dr. Polina Valenzuela MD on 01/11/19 at 0328. Scribe Documentation Reviewed: Yes Provider Attestation: The documentation as recorded by the Leticia rodriguez accurately reflects the service I personally performed and the decisions made by me, Dr. Polina Valenzuela MD Status of Scribe Document: Viewed
[2019-01-10 21:19] LABS: Urine Appearance Cloudy; Urine Bacteria 1+ (Absent); Urine Bilirubin Negative (Negative); Urine Blood 1+ (Negative); Urine Color Yellow; Urine Glucose Negative (Negative); Urine Ketones Negative (Negative); Urine Nitrite Negative (Negative); Urine Protein Negative (Negative); Urine Red Blood Cell 1+(3-5/hpf) (Absent); Urine Specific Gravity 1.006 (1.010-1.030); Urine Urobilinogen Negative (Negative); Urine White Blood Cell 3+(>20/hpf) (Absent)
[2019-01-10] MEDS ORDERED: cefTRIAXone(*) 1 GM in NS 0.9% 50 ML* 50 ML IVPB ONE (22:27)
[2019-01-11] MEDS ORDERED: Morphine 4 MG/ML VIAL (1 ml) 4 MG/ML VIAL IV ONE (00:44)
[2019-01-11 05:12] VITALS: BP 149/60
--- NOTE | 2019-01-12 06:12 | PN ---
Progress Note - Progress Note Date of Service: 01/10/19 Note: Urine culture preliminary grew Proteus Mirabilis Patient was transferred to [facility] Will await sensitivities and fax to [facility]
--- NOTE | 2019-01-13 05:42 | PN ---
Progress Note - Progress Note Date of Service: 01/11/19 Note: Sensitivities returned. Faxed to [facility]
== END 2019-01-11 10:06 | disposition short-term general hospital (02) ==
LOC: ED 13:28
DX: N13.2 Hydronephrosis with renal and ureteral calculous obstruction (principal); E87.1 Hypo-osmolality and hyponatremia; R22.2 Localized swelling, mass and lump, trunk; N18.2 Chronic kidney disease, stage 2 (mild); N39.0 Urinary tract infection, site not specified; Z88.8 Allergy status to other drugs, medicaments and biological substances; I25.10 Atherosclerotic heart disease of native coronary artery without angina pectoris; I12.9 Hypertensive chronic kidney disease with stage 1 through stage 4 chronic kidney disease, or unspecified chronic kidney disease
CPT/HCPCS: 36415; 74176; 80053; 81003; 81015; 85025; 86140; 87077; 87086; 87186; 96372; 96374; 96375; 99284; J0696; J2270

== ENCOUNTER 2019-04-09 08:45 | Inpatient (IN) | payer MEDICARE ==
[2019-04-09] MEDS ORDERED: Magnesium Hydroxide LIQ* 30 ML UDC PO PRN (13:00)
[2019-04-09] MEDS ORDERED: Senna TAB 8.6 mg* TAB PO PRN (13:00)
[2019-04-09] MEDS ORDERED: HYDROmorphone TAB* 2 MG PO PRN (13:18)
[2019-04-09] MEDS ORDERED: Pregabalin CAP(*) 100 MG PO SCH (14:00)
[2019-04-09] MEDS ORDERED: hydrALAZINE TAB* 25 MG PO SCH (15:00)
[2019-04-09] MEDS ORDERED: Isosorbide Dinitrate TAB* 10 MG PO SCH (15:00)
--- NOTE | 2019-04-09 16:20 | CONSULT ---
Subjective Date of Service: 04/09/19 Interval History: Mr. 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 He presented to [facility] on 02/23/19 with complaints of fever for 3 days and concerns of an infected pressure injury and consult with Dr. Yassine Blankenship ( previously performed flap reconstruction). He was admitted to the hospital for a sacral pressure injury and underwent debridement (by Dr. Vonnie Virk) and ABX. He developed Posterior Reversible Encephalopathy Syndrome (PRES) and was intubated, and also found to have seizures. He stayed at [facility] for a total of 44 days. He was felt to require rehab and was admitted to [facility] today. Patient presented to [facility] from [facility] with multiple pressure injuries including; bilateral heels, left ischium, right hip, sacrum. Also noted to have ecchymosis to the right ankle. Patient seen and examined at bedside. Family History: Unchanged from Admission Social History: Unchanged from Admission Past Medical History: Unchanged from Admission Review of Systems - Measurements Intake and Output: Intake and Output Last 24 Hours 04/07/19 04/08/19 04/09/19 04/10/19 06:59 06:59 06:59 06:59 Output Total 300 Balance -300 Output: Fischer 300 - Review of Systems Constitutional Symptoms: Negative: Fever, Other - Chills Dermatology: Positive: Other - Wounds to bilateral heels, left ischium, sacrum, and left hip Neurology: Positive: Other - Paraplegia Objective Active Medications: Acetaminophen (Tylenol Tab*) 650 mg PO Q6H PRN Reason: MILD PAIN or TEMP > 100.4 Amlodipine Besylate (Norvasc Tab*) 10 mg PO DAILY [facility] Aspirin (Aspirin Ec Tab*) 81 mg PO DAILY RADHA Carvedilol (Coreg Tab*) 25 mg PO BID RADHA Cholecalciferol (Vitamin D Tab*) 1,000 units PO DAILY [facility] Collagenase (Santyl 250 Units/Gm Oint*) 1 applic TOPICAL Q12H RADHA Cyanocobalamin (Vitamin B12 Tab*) 1,000 mcg PO DAILY RADHA Docusate Sodium (Colace Cap*) 100 mg PO BID RADHA Doxazosin Mesylate (Cardura Tab*) 2 mg PO BEDTIME RADHA Ezetimibe (Zetia Tab*) 10 mg PO 1700 RADHA Hydralazine HCl (Apresoline Tab*) 75 mg PO TID RADHA Hydromorphone HCl (Dilaudid Tab*) 2 mg PO Q4H PRN Reason: PAIN - SEVERE Isosorbide Dinitrate (Isordil Tab*) 30 mg PO TID RADHA Levetiracetam (Keppra Tab*) 1,000 mg PO BID RADHA Stop: 04/11/19 23:59 Levetiracetam (Keppra Tab*) 500 mg PO BID RADHA Magnesium Hydroxide (Milk Of Magnesia Liq*) 30 ml PO Q6H PRN Reason: CONSTIPATION Pantoprazole Sodium (Protonix Tab*) 40 mg PO BID RADHA Pregabalin (Lyrica Cap(*)) 200 mg PO TID RADHA Senna (Senokot 8.6 Mg Tab*) 2 tab PO BEDTIME PRN Reason: CONSTIPATION Vital Signs 04/09/19 13:14 Temperature 98.0 F Pulse Rate 72 Respiratory 15 Rate Blood Pressure 111/34 (mmHg) O2 Sat by Pulse 97 Oximetry Oxygen Devices in Use Now: None Appearance: NAD, laying in bed Ears/Nose/Mouth/Throat: Mucous Membranes Moist Respiratory: Symmetrical Chest Expansion and Respiratory Effort Cardiovascular: No Edema, - - Weak DP pulse bilateral Skin: - - See skin note below Neurological: Alert and Oriented x 3 Diagnostic Imagin. Exam Date: 02/11/19 - VL ANK/BRACHIAL INDICES FINDINGS: The ankle brachial index on the right was 0.39 and on the left was 0.80. The ankle-brachial indices on the prior study were 0.93 and 0.91 respectively. There is monophasic flow within the right posterior tibial artery and monophasic flow within the right dorsalis pedis artery. There is biphasic flow within the left posterior tibial artery and biphasic flow within the left dorsalis pedis artery. IMPRESSION: SIGNIFICANTLY REDUCED ANKLE-BRACHIAL INDICES AND WAVEFORMS MORE SEVERE IN THE RIGHT LOWER EXTREMITY. CONSIDER A CT ANGIOGRAM OF THE AORTA AND LOWER EXTREMITIES FOR FURTHER EVALUATION. 2. Exam Date: 02/11/19 - MRI LOWER EXTREMITY RIGHT W/O IMPRESSION: SOFT TISSUE SWELLING AND SOFT TISSUE ULCER, NO SPECIFIC EVIDENCE FOR OSTEOMYELITIS. Skin Deviation Note - Skin Deviation Findings Right medial heel - There is a superficial pressure injury that measures, 1.5 cm x 2 cm x 0.1 cm. The wound base is pink granulation tissue. The surrounding skin is intact, slight blanchable pink area from 12 o'clock to 3 o'clock in the periwound. There is no drainage. Right lateral ankle - There is an area of ecchymosis, measures 7 cm x 2 cm. The skin is intact. Left medial heel - There is an unstageable pressure injury, total wound measures 3 cm x 3 cm x 0.1 cm. There is an area near the center that is yellow slough and a small amount of dark eschar that measures 1.5 cm x 1.2 cm. The surrounding skin is intact, slight erythema that is blanchable. Left ischium - There is a pressure ulcer present, measures 4.5 cm x 4 cm x 4 cm. There is red granulation tissue from about 1 o'clock to 6 o'clock and yellow slough in the remainder of the wound bed. The periwound with slight blanchable erytehma. No drainage observed. No foul smell. Sacrum - There is a small open area that measures 0.8 cm x 0.3 cm x 0.1 cm. The tissue is white and appears to be macerated. There is also mild erythema surrounding the wound (this wound is located in a natural cleft in his back). There is no drainage. No sign of yeast infection. Right posterior lateral hip - There is a wound that measures 1.5 cm x 1 cm x 0.1 cm. The wound base with yellow slough, the periwound with mild erythema. The surrounding skin is intact. No draiange noted. Wound Problem/Plan Assessment: Mr. 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 He presented to [facility] on 02/23/19 with complaints of fever for 3 days and concerns of an infected pressure injury. He developed PRES and was intubated , and also found to have seizures. He stayed at [facility] for a total of 44 days. He was felt to require rehab and was admitted to [facility] today. Presented to [facility] from [facility] with multiple pressure injuries including; bilateral heels, left ischium, right hip, sacrum. Also noted to have ecchymosis to the right ankle. 1. Right medial heel stage 3 pressure injury, healing. This has been present since November 2018, he started to follow with the [facility] for this wound in January 2019. Underwent ABIs in February showing reduced ABIs right > left. Also had an MRI of the foot in February 2019, showing no sign of osteomyelitis. He was suppose to have a CTA with runoff and referral to Dr. Mckinley, but it appears that was neither were ever completed. While in [facility] this wound was being treated with a border foam dressing. The wound is healing when compared to initial measurements from 01/24/19, at which time the wound measured 1.7 cm x 3 cm x 0.1 cm. Recommend applying a border foam dressing (Optifoam), and change every 3 days or as needed for drainage. Keep the heels elevated off the bed. Consider checking a prealbumin to evaluate nutritional status. Consider referral to Vascular outpatient. 2. Right lateral ankle. There is an area of discoloration, this appears to be ecchymosis but may represent a deep tissue injury. Ms. Merino reports that this occurred after the area was bumped while getting the patient out of bed. While in [facility] this wound area was being treated with a border foam dressing. Recommend using a border foam dressing (Optifoam) to protect the area , but could consider leaving open to air as there is no open areas. 3. Left medial heel unstageable pressure injury. Unclear how long this has been present. Ms. Merino reports this has been present since January, but was not previously documented by the [facility] Wound clinic in January and February when he was seen there last. See LINA results above. While in [facility] this wound was being treated with Medihoney and a border foam dressing and being changed every other day. Recommend Medihoney alginate followed by a border foam dressing (Optifoam), and change every other day or as needed for drainage. Keep the heels elevated off the bed. Consider checking a prealbumin to evaluate nutritional status. Consider referral to Vascular outpatient. If wound continues to be present and not healing, should consider MRI to evaluate for Osteomyelitis. 4. Left ischium stage 3 pressure injury. This has been present since November 2018, he started to follow with the [facility] for this wound in January 2019. While in [facility] this wound was being treated with a wound vac, and then changed to Santyl BID with wet to dry dressing at the time of discharge. This is reported to have wound cultures with MRSA and VRE while in [facility]. He was treated with Linezolid and Zosyn, unclear for how long. Recommend applying Santyl daily to the area of slough in the wound base, followed by packing the wound with calcium alginate rope, and cover with a border foam gauze (Optifoam) and change daily or as needed for drainage. Frequent turning and repositioning. Do not sit up in a chair for more than 1-2 hours at a time if possible. Use Roho cushion in wheel chair when up OOB. Consider checking a prealbumin to evaluate nutritional status. Should be referred back to the [facility] (or wound clinic of choice ) at discharge. 5. Sacral stage 2 pressure injury. Unclear how long this has been present, but Ms. Merino reports new since January 2019. 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 Fracture of the L3 vertebral body. There is perhaps slightly marrow signal abnormality within the posterior elements of the sacrum at the level of S3, which is nonspecific and may be reactive secondary to the adjacent mass, however early/mild changes related to osteomyelitis cannot be entirely excluded". Recommend applying a border foam gauze (Optifoam ) to this area and change every 3 days or as needed for drainage or soiling. If the area becomes more macerated or appears to have a fungal infection recommend discontinuing border foam gauze. For macerated skin use barrier cream (orange top) as needed or for Julissa use Nystatin powder twice daily. Frequent turning and repositioning. Consider checking a prealbumin to evaluate nutritional status. 6. Right hip unstageble pressure injury. Unclear how long this has been present , but developed after last seen at the wound clinic in February as not documented at that time (02/13/19). While at [facility] this was being treated with Santyl and a border foam dressing. Recommend applying Santyl to the wound base once daily, followed by a border foam dressing (Optifoam) and change daily or as needed for drainage. Frequent turning and repositioning. Do not sit up in a chair for more than 1-2 hours at a time if possible. Use Roho cushion in wheel chair when up OOB. Consider checking a prealbumin to evaluate nutritional status. 7. Anterior urethral injury; acquired latrogenic hypospadias. emergency medical technician related pressure injury to the penis secondary to the urinary catheter. This is not new and has been documented by Urology in the past. Use caution to keep pressure off the urinary catheter tube to prevent further breakdown. 8. Paraplegia secondary to spinal ependymoma. With neurogenic bladder and a chronic indwelling urinary catheter. 9. Diet. Regular diet. 10. Code Status. DNR 11. Disposition. Inpatient, disposition per Primary team. Is Patient a Wound Clinic Patient: Yes - Dr. Gar and Rosi Esteban, EVELYN Comment: Last visit 02/13/19: Right heel - [place] superlite HD, dry gauze and rolled gauze, change MWF. Left ischium - Honey gel, covered with Tegaderm. Right great toe - [place] superlite HD. Recommended Vascular consult and CTA. Attending: Carin Anthony
[2019-04-09] MEDS: Isosorbide Dinitrate TAB* 20 MG PO SCH (20:54)
[2019-04-09] MEDS: Carvedilol TAB* 25 MG PO SCH (20:55)
[2019-04-09] MEDS: levETIRAcetam TAB* 500 MG PO SCH (20:55)
[2019-04-09] MEDS: Pregabalin CAP(*) 100 MG PO SCH (20:55)
[2019-04-09] MEDS: Docusate CAP* 100 MG PO SCH (20:55)
[2019-04-09] MEDS: Pantoprazole TAB * 40 MG TAB PO SCH (20:55)
[2019-04-09] MEDS: hydrALAZINE TAB* 25 MG PO SCH (20:55)
[2019-04-09] MEDS: Doxazosin TAB* 2 MG PO SCH (20:55)
[2019-04-09] MEDS ORDERED: Collagenase 250 UNITS/GM OINT* 1 APPLIC OINT TOPICAL SCH (21:00)
--- NOTE | 2019-04-09 22:27 | HP ---
HISTORY AND PHYSICAL: DATE OF ADMISSION: 04/09/19 REASON FOR ADMISSION: Paraplegia; pressure ulcer; complicated medical course including posterior reversible encephalopathy syndrome and acute respiratory failure with severe sepsis. HISTORY OF PRESENT ILLNESS: Kavon Merino is a 73-year-old male. 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 He has had debulking surgeries and had radiation treatment to the area as well. Radiation and chemotherapy were both tried and did not help. Since 1970, Obi has had increasing weakness in his legs accompanied by pain down both legs. When I first met him in 2011, he was able to ambulate with bilateral AFOs for short distances and required a wheelchair for long distances, but with the progression of time, he lost the ability to ambulate. He always had pain as a result of the tumor invading the lumbar vertebrae and the cauda equina. The pain significantly worsened over the course of the past 3-1/2 years. In November 2016, the pain increased dramatically. He has been following with me in the pain clinic since 2011, and we have tried multiple pain medications. This past year in December, he was brought to the emergency room with significant back pain. He was originally diagnosed with a kidney stone, but then he was transferred to [facility]. There , he was diagnosed with a kink in his Fischer catheter. The catheter was changed , and the back pain went away. The patient developed shortly thereafter a small pressure ulcer over his ischium. He was treated in the wound clinic and by visiting nurse services. Unfortunately, the wound began to worsen. On , the patient went back to [facility] Emergency Room because he had a high temperature. He was diagnosed with an infected pressure ulcer. The patient was treated with IV antibiotics including Zyvox and Zosyn. He developed more confusion and acute respiratory failure and was intubated and had seizures. It was eventually felt that the seizures were secondary to the Zyvox. He was also diagnosed with posterior reversible encephalopathy syndrome , which was seen on the MRI of his brain. His blood pressure was treated aggressively. He was on the ventilator for 8 days and was eventually weaned off. Following the weaning, the patient had difficulty swallowing and difficulty with speaking, but this gradually improved. He remained quite fatigued. He also had mental status changes. His Keppra was eventually tapered down. The patient seemed to do slightly better after his Dilantin was discontinued. His diet was eventually upgraded to a regular diet with thin liquids. He remained quite weak. As far as his wounds were concerned, he completed a course of antibiotics for VRE, which grew from his wounds. He had significant pain after he was extubated, and all his medications were weaned off. Normally, he takes levorphanol for his pain, but they did not have this drug available at [facility]. The medications they were giving him were not effective. The patient complained of significant pain. The patient was started on Dilaudid, but again this did not give him good relief. His Lyrica had been held because of renal issues as well as the seizures. The patient otherwise seemed to be doing well with improving. His renal failure improved. They did stop his DAVID inhibitor and his thiazide. The patient was quite weak as a result of his prolonged complicated hospitalization. He was felt to have physical therapy and occupational therapy needs. He is now being admitted for inpatient rehab so that he might return to independent living. He also has speech therapy needs. PAST MEDICAL HISTORY: Significant for the aforementioned ependymoma with paraplegia. As mentioned, he also has posterior reversible encephalopathy syndrome. He has a history of hypertension, sleep apnea, chronic kidney disease , coronary artery disease. MEDICATIONS: Current medications include: 1. Hydralazine. 2. Isordil. 3. Norvasc. 4. Aspirin. 5. Coreg. 6. Cardura. 7. Zetia. 8. Dilaudid. 9. Keppra. 10. Protonix. ALLERGIES: The patient has allergies to STATIN drugs. SOCIAL HISTORY: He lives with his in a 1-story house. There are no steps to enter. Prior to admission, he was wheelchair bound. They do have an electric wheelchair, and he has a wheelchair accessible van. He has a son and daughter-in- law living nearby on the property. He is a nonsmoker, nondrinker. REVIEW OF SYSTEMS: No current shortness of breath, chest pain. He does report that he is quite fatigued from his journey from [employer]. PHYSICAL EXAMINATION VITAL SIGNS: The patient's temperature is 98.0, blood pressure is 110/46, pulse 70, respirations 14. HEENT: His extraocular movements are intact. Tongue is midline. NECK: Supple with no lymphadenopathy. LUNGS: Lungs sound clear to auscultation bilaterally. HEART: Heart sounds are regular. S1, S2 audible. ABDOMEN: Soft and nontender. EXTREMITIES: He has an unstageable pressure ulcer on his left heel. The left heel ulcer measures roughly 5 cm across. There is a small area of eschar about 1.5 cm in the middle. In addition to the wound on his heel, he has a left ischial ulcer about 4 cm in diameter. NEUROLOGIC: The patient is alert. He recognized me. He has no movement below his waist. Decreased sensation in his legs. FUNCTIONAL EXAM: He transfers independent. ASSESSMENT: 1. Ependymoma with paraplegia. 2. Infected pressure ulcer. 3. Posterior reversible encephalopathy syndrome. PLAN: We are going to integrate him into a comprehensive and therapeutic rehab program with the following goals: 1. Physical Therapy will work with the patient. They are going to work on functional transfer training, ambulation training with a walker. 2. Occupational Therapy will see the patient, work on his activities of daily living. 3. Speech Therapy will see the patient, work on his cognitive training, also evaluate his swallow. 4. For his PRES, he is on aggressive blood pressure monitoring now, but his blood pressure is low. We are going to back off some of his blood pressure medicines. 5. For his neurogenic bladder, we will continue his Fischer catheter care. 6. For his seizures, we are going to be lowering his Keppra as they recommended in [employer]. 7. For sleep apnea, we will continue his BiPAP. 8. Wound consult for his ischial pressure ulcer as well as the ulcer on his left heel. 9. Customer Field Representative will be closely involved to make sure that any services and equipment that the patient requires are in place prior to discharge. 10. Adequate analgesia. We are going to restart his levorphanol, which the patient's has brought in. 11. He had a short run of nonsustained Vtach at [employer]. We will continue his Coreg and his baby aspirin. 12. We are going to restart his Lyrica. 13. Family training as appropriate. 14. Home with appropriate services. 15. Advance directives: The patient was DNR in [employer]. The wishes to reverse his DNR now that the patient is improved. ESTIMATED LENGTH OF STAY: 14 days. [id number]/[facility] #: [id number] [facility] [place]
[2019-04-09] MEDS: [UNRECOGNIZED DRUG - OTHER] PO SCH (23:57)
[2019-04-10] MEDS: [UNRECOGNIZED DRUG - OTHER] PO SCH ×3 (07:15→21:35)
[2019-04-10] MEDS ORDERED: Collagenase 250 UNITS/GM OINT* 1 APPLIC OINT TOPICAL SCH (09:00)
[2019-04-10] MEDS ORDERED: Influenza VAC *QUAD* 2019-20* 0.5 ML SYRINGE IM ONE (09:00)
[2019-04-10] MEDS: Pregabalin CAP(*) 100 MG PO SCH ×3 (09:42→20:32)
[2019-04-10] MEDS: Aspirin EC TAB* 81 MG TAB.EC PO SCH (09:42)
[2019-04-10] MEDS: Cholecalciferol TAB* 1000 UNITS PO SCH (09:42)
[2019-04-10] MEDS: levETIRAcetam TAB* 500 MG PO SCH ×2 (09:42→20:31)
[2019-04-10] MEDS: Pantoprazole TAB * 40 MG TAB PO SCH ×2 (09:42→20:32)
[2019-04-10] MEDS: Cyanocobalamin TAB* 500 MCG PO SCH (09:43)
[2019-04-10] MEDS: Isosorbide Dinitrate TAB* 20 MG PO SCH ×4 (09:43→21:03)
[2019-04-10] MEDS: Carvedilol TAB* 25 MG PO SCH ×2 (09:43→20:30)
[2019-04-10] MEDS: hydrALAZINE TAB* 25 MG PO SCH ×4 (09:43→21:02)
[2019-04-10] MEDS: amLODIPine TAB* 5 MG PO SCH (09:43)
[2019-04-10] MEDS: Docusate CAP* 100 MG PO SCH ×2 (09:43→20:30)
[2019-04-10] MEDS: Collagenase 250 UNITS/GM OINT* 1 APPLIC OINT TOPICAL SCH (12:32)
[2019-04-10] MEDS: Ezetimibe TAB* 10 MG PO SCH (17:18)
--- NOTE | 2019-04-10 20:03 | PN ---
Progress Note Date of Service: 04/10/19 Note: CARLOTA MONTIEL was visited. Therapy notes read and reviewed.He was able to sit at edge of bed for a few minutes. He was able to transfer into his chair with the shellie. BP still quite low. Will decrease hydralazine to 25, and decrease Isordil to 10 Current Medications: Active Medications Generic Name Dose Route Start Last Admin Trade Name Freq PRN Reason Stop Dose Admin Acetaminophen 650 mg 04/09/19 13:00 Tylenol Tab* PO Q6H PRN MILD PAIN or TEMP > 100.4 Amlodipine Besylate 10 mg 04/10/19 09:00 04/10/19 09:43 Norvasc Tab* PO 10 mg DAILY RADHA Administration Aspirin 81 mg 04/10/19 09:00 04/10/19 09:42 Aspirin Ec Tab* PO 81 mg DAILY RADHA Administration Carvedilol 25 mg 04/09/19 21:00 04/10/19 09:43 Coreg Tab* PO 25 mg BID RADHA Administration Cholecalciferol 1,000 units 04/10/19 09:00 04/10/19 09:42 Vitamin D Tab* PO 1,000 units DAILY RADHA Administration Collagenase 1 applic 04/10/19 09:00 04/10/19 12:32 Santyl 250 Units/Gm Oint* TOPICAL 1 applic DAILY RADHA Administration Cyanocobalamin 1,000 mcg 04/10/19 09:00 04/10/19 09:43 Vitamin B12 Tab* PO 1,000 mcg DAILY RADHA Administration Docusate Sodium 100 mg 04/09/19 21:00 04/10/19 09:43 Colace Cap* PO 100 mg BID RADHA Administration Doxazosin Mesylate 2 mg 04/09/19 21:00 04/09/19 20:55 Cardura Tab* PO 2 mg BEDTIME RADHA Administration Ezetimibe 10 mg 04/10/19 17:00 04/10/19 17:18 Zetia Tab* PO 10 mg 1700 RADHA Administration Hydralazine HCl 50 mg 04/09/19 21:00 04/10/19 14:24 Apresoline Tab* PO 50 mg TID RADHA Administration Hydromorphone HCl 2 mg 04/09/19 13:18 Dilaudid Tab* PO Q4H PRN PAIN - SEVERE Isosorbide Dinitrate 20 mg 04/09/19 21:00 04/10/19 14:27 Isordil Tab* PO Not Given TID RADHA Levetiracetam 1,000 mg 04/09/19 21:00 04/10/19 09:42 Keppra Tab* PO 04/11/19 23:59 1,000 mg BID RADHA Administration Levetiracetam 500 mg 04/12/19 09:00 Keppra Tab* PO BID RADHA Magnesium Hydroxide 30 ml 04/09/19 13:00 Milk Of Iraj Liq* PO Q6H PRN CONSTIPATION Pto:Nft* ( 1 mg 04/09/19 22:00 04/10/19 14:25 Levorphanol 2mg PO 1 mg Tablet) Q8HR RADHA Administration Pantoprazole Sodium 40 mg 04/09/19 21:00 04/10/19 09:42 Protonix Tab* PO 40 mg BID RADHA Administration Pregabalin 100 mg 04/09/19 21:00 04/10/19 14:40 Lyrica Cap(*) PO 100 mg TID RADHA Administration Senna 2 tab 04/09/19 13:00 Senokot 8.6 Mg Tab* PO BEDTIME PRN CONSTIPATION Vital Signs: Vital Signs Temp Pulse Resp BP Pulse Ox 98.7 F 75 18 104/44 94 04/10/19 17:18 04/10/19 17:18 04/10/19 17:29 04/10/19 17:18 04/10/19 17:18 Exam: HEENT: EOMI LUNGS: Clear HEART: reg Rhythm ABDOMEN: Soft, +BS, Ostomy SKIN: 4cm left ischial ulcer NEUROLOGIC: A&O. No movement in legs. Limited sensation below waist Assessment/Plan: 1. Ependymoma with Paraplegia: PT/OT 2. Ischial Pressure Ulcer: Wound consult. Santyl/calcium alginate. Roho when in chair 3. PRES: On multiple BP meds, but now BPs are running low. Tapering Isordil and Hydralazine. On Norvasc/Coreg 4. Chronic Neuropathic Pain: From tumor. Levorphanol has improved situation 5. Seizures: On Keppra. Lowering dose. Seizures were felt to be possibly from Zyvox 6. Neurogenic Bladder: Fischer 7. NSVT on Monitor at [facility]: Coreg 8. Acute on chronic renal failure: Check labs in am 9. Advanced Directives: is HCP. Full code 04/10/19 20:29 04/10/19 20:35
[2019-04-10] MEDS: Doxazosin TAB* 2 MG PO SCH (20:32)
[2019-04-11] MEDS: Acetaminophen TAB* 325 MG PO PRN (00:02)
[2019-04-11 04:30] LABS: ABS Eosinophils 0.2 10^3/ul (0-0.6); ABS Lymphocytes 2.2 10^3/ul (1.0-4.8); ABS Monocytes 1.3 10^3/ul (0-0.8); ABS Neutrophils 5.7 10^3/ul (1.5-7.7); Eosinophil % 2.5 %; Hematocrit 24 % (42-52); Hemoglobin 7.9 g/dL (14.0-18.0); Lymphocyte % 23.7 %; Mean Corpuscular HGB Conc 33 g/dL (31-36); Mean Corpuscular Hemoglobin 28 pg (27-31); Mean Corpuscular Volume 86 fL (80-94); Mean Platelet Volume 7.4 fL (7.4-10.4); Platelet Count 285 10^3/uL (150-450); Red Blood Count 2.79 10^6 /uL (4.18-5.48); Red Cell Distribution Width 21 % (10-15); White Blood Count 9.4 10^3/uL (3.5-10.8)
[2019-04-11 04:44] LABS: Albumin 2.9 g/dL (3.2-5.2); Albumin/Globulin Ratio 1.2 (1-3); BUN/Creatinine Ratio 28.1 (8-20); Calcium 10.3 mg/dL (8.6-10.3); EGFR African American 30.9 (>60); EGFR Non-African American 25.6 (>60); Globulin 2.5 g/dL (2-4); Total Bilirubin 0.2 mg/dL (0.2-1.0); Total Protein 5.4 g/dL (6.4-8.9)
[2019-04-11 04:47] LABS: Potassium 5.1 mmol/L (3.5-5.0)
[2019-04-11] MEDS: amLODIPine TAB* 5 MG PO SCH (08:41)
[2019-04-11] MEDS: Cholecalciferol TAB* 1000 UNITS PO SCH (08:42)
[2019-04-11] MEDS: Cyanocobalamin TAB* 500 MCG PO SCH (08:42)
[2019-04-11] MEDS: Aspirin EC TAB* 81 MG TAB.EC PO SCH (08:42)
[2019-04-11] MEDS: Docusate CAP* 100 MG PO SCH ×2 (08:44→19:51)
[2019-04-11] MEDS: [UNRECOGNIZED DRUG - OTHER] PO SCH ×3 (09:35→21:35)
[2019-04-11] MEDS: hydrALAZINE TAB* 25 MG PO SCH ×3 (09:37→19:51)
[2019-04-11] MEDS: Carvedilol TAB* 25 MG PO SCH ×2 (09:37→19:51)
[2019-04-11] MEDS: Pregabalin CAP(*) 100 MG PO SCH ×3 (11:49→19:51)
[2019-04-11] MEDS: Pantoprazole TAB * 40 MG TAB PO SCH ×2 (11:53→19:51)
[2019-04-11] MEDS: Isosorbide Dinitrate TAB* 20 MG PO SCH ×3 (11:54→19:50)
[2019-04-11] MEDS: levETIRAcetam TAB* 500 MG PO SCH ×2 (12:36→19:51)
--- NOTE | 2019-04-11 13:08 | PMRUTEAM ---
PMRU: Team Meeting Current Status: Physical Therapy: Current Status Current Rolling Status Substantial/Maximal Current Supine <-> Sit Status Dependent Current Sit <-> Stand Status Not Applicable Current Bed <-> Chair Status Dependent Transfer/Bed Mobility Laila Lift Recommended Devices Current Picking Up Object Not attempted Status Current Car Transfer Status Not attempted Current Ambulation Assistance Not Applicable Status Current Wheelchair Propulsion Dependent Ability Status Wheelchair Distance (ft) 5 Current Stair Climbing Status Not Applicable Current Curb Assistance Status Not Applicable Objective Comments Pt successfully completes transfer bed to/from with total Ax2 and use of laila lift. Pt denies c/ o pain or dizziness and request to decreased tilt to sit further upright. BP assessed with change in position (seated) - 76/36. Nsg notified. Pt returned to bed with laila lift/total Ax2. Occupational Therapy: Current Status Current Upper Body Dressing Substantial/Maximal Status Current Lower Body Dressing Dependent Status Current Footwear Status Dependent Current Bathing Status Dependent Current Grooming Status Supervision/Touching Current Toileting Status Dependent Current Toilet Transfer Status Dependent Current Eating Status Supervision/Touching Nursing: Current Status Skin Deviations [penis] Unblanchable,Other Skin Deviations [left ischium] Pressure Ulcer Skin Deviations [Right Hip] Pressure Ulcer Skin Deviations [Right Ankle] Bruise Skin Deviations [Sacrum] Pressure Ulcer Skin Deviations [Left Hip] Pressure Ulcer Skin Deviations [Left Heel] Pressure Ulcer Skin Deviations [Right Heel] Pressure Ulcer Skin Deviation Description [ tubing injury penis] Skin Deviation Description [ drsg cdi; spenco boot Right Ankle] Skin Deviation Description [ Spanko boot in place Left Heel] Skin Deviation Description [ Spanko boot in place Right Heel] Wound Stage [left ischium] III Wound Stage [Left Heel] II Wound Stage [Right Heel] II Rec Therapy: Current Status Summary of Assessment and RT assessment complete and pt. is aware of RT Clinical Impression services. Pt. is engaged in leisure sessions. Goals: Physical Therapy: Goals Goals to Be Accomplished in ( 5 Days) Goal: Rolling Assistance Partial/Moderate Goal Supine <-> Sit Status Partial/Moderate Goal Sit <-> Stand Status Not Applicable Goal Bed <-> Chair Status Dependent Transfer/Bed Mobility Laila Lift Recommended Devices Goal: Picking Up Object Partial/Moderate Goal: Car Transfer Status Dependent Goal: Ambulation Assistance Not Applicable Ambulation Assistive Devices Forearm Crutches Goal: Wheelchair Propulsion Supervision/Touching Ability Wheelchair Distance (ft) 150 Goal: Stairs Assistance Not Applicable Goal: Curb Assistance Not Applicable Goal: Home Exercise Program Partial/Moderate Assistance Occupational Therapy: Goals Goals to be Completed in (Days 5 ) Goal Upper Body Dressing Partial/Moderate Routine Goal Lower Body Dressing Substantial/Maximal Routine Goal Footwear Status Substantial/Maximal Goal Bathing Routine (OT) Partial/Moderate Goal Grooming Routine Setup or Clean-up Assist Goal Toilet Hygiene and Substantial/Maximal Clothing Management Routine Goal Toilet Transfer Routine Dependent Goal Functional Transfers for Dependent ADL Goal Feeding Routine Setup or Clean-up Assist Nutrition: Goals Intervention Goals 1. adequate intake to support hydration and lean body mass without add'l wt loss 2. areas of skin breakdown will show evidence of healing; no new areas of skin breakdown 3. achieve and maintain serum electrolytes WNL 4. regulation of bowel pattern/ostomy function; no c/o constipation (or diarrhea) Care Plan: Care Plan ADL's - Improve/Maintain Start: 04/10/19 03:23 Freq: DAILY@[id number] Status: Active Target: 04/14/19 Protocol: Activity Type Activity Date Activity User E-Sign Co-Sign Detail Recorded Client Recorded Date Recorded By Document 04/10/19 16:11 [id number] 04/10/19 16:13 [id number] 04/10/19 16:11 PMRU Outcome: ADL's/ADL Transfers Orders/Interventions Occupational Therapy Evaluation & Treatment Communication Tool in Patient Room Device Yes Address Deficits Secondary To: prolonged hospitalization , sepsis, resp failure Patient to receive OT 5x/wk for 60-120 Therex min/day Self Care Management Group Therapy Neuromuscular ReEducation UE/LE ADL's with Assist Yes: min-maxA ADL Transfers with Assist Yes: max-totalA Toileting: Transfers,Clothing Management Yes: totalA ,Hygeine w/Assist Light Kitchen/Laundry w/Assist No Other Outcome/Goals Pt participated well in treatment session, increased independence with feeding this date compared to previous hospital per 's report with built up handle on silverware and incidental assist/cues for breakfast. Progression Toward Outcome/Goals Goal Initiation Cardiovascular- Improve/Maintain Start: 04/09/19 12:57 Freq: DAILY@0700,1900 Status: Active Target: 04/16/19 Protocol: Activity Type Activity Date Activity User E-Sign Co-Sign Detail Recorded Client Recorded Date Recorded By Document 04/11/19 01:48 [id number] [id number] 04/11/19 01:49 [id number] 04/11/19 01:48 PMRU Outcome: Cardiovascular Vital Signs q Shift for 48hrs Then BID Yes Daily Weight Ordered No Current Cardiovascular Outcome/Goal Maintain/ Achieve Baseline HR, BP , Perfusion Free of Abnormal Cardiac Symptoms Progression Toward Outcome/Goal Progressing Communication-Improve/Maintain Start: 04/09/19 12:57 Freq: DAILY@0700,1900 Status: Active Target: 04/16/19 Protocol: Activity Type Activity Date Activity User E-Sign Co-Sign Detail Recorded Client Recorded Date Recorded By Document 04/11/19 01:48 [id number] 04/11/19 01:49 [id number] 04/11/19 01:48 PMRU Outcome: Communication/Cognitive Status Current Communication Outcome/Goals Makes Needs Known Effectively Progression Toward Outcomes/Goals Progressing DVT Prophylaxis- Improve/Maintain Start: 04/09/19 12:57 Freq: DAILY@[id number] Status: Active Target: 04/16/19 Protocol: Activity Type Activity Date Activity User E-Sign Co-Sign Detail Recorded Client Recorded Date Recorded By Document 04/11/19 01:48 [id number] 04/11/19 01:49 [id number] 04/11/19 01:48 PMRU Outcome: DVT Prophylaxis Current DVT Outcome/Goals Remains Free of DVT Complies with DVT Prophylaxis /Treatment Demonstrates Knowledge of DVT Prevention/ Treatment Progression Toward Outcome/Goals Progressing Discharge Planning - Improve/Maintain Start: 04/09/19 12:57 Freq: DAILY@07,1900 Status: Active Target: 04/16/19 Protocol: Activity Type Activity Date Activity User E-Sign Co-Sign Detail Recorded Client Recorded Date Recorded By Document 04/11/19 01:48 [id number] [email or web address] 04/11/19 01:49 [id number] 04/11/19 01:48 PMRU Outcome: Discharge Planning Update Patient Family Yes: reviewed care rep policies Current Discharge Planning Outcome/Goals Demonstrates Understanding of Discharge Plan Homecare Referral - See Comment Progression Toward Outcome/Goals Progressing Education-Improve/Maintain Start: 04/09/19 12:57 Freq: DAILY@0700,1900 Status: Active Target: 04/16/19 Protocol: Activity Type Activity Date Activity User E-Sign Co-Sign Detail Recorded Client Recorded Date Recorded By Document 04/11/19 01:48 [id number] [email or web address] 04/11/19 01:49 [id number] 04/11/19 01:48 PMRU Outcome: Education Current Education Outcome/Goals Demonstrate/ Verbalize Understanding of Written Discharge Instructions Demonstrates Skills Encourage Questions Progression Toward Outcome/Goals Progressing /GI-Improve/Maintain Start: 04/09/19 12:57 Freq: DAILY@[id number] Status: Active Target: 04/16/19 Protocol: Activity Type Activity Date Activity User E-Sign Co-Sign Detail Recorded Client Recorded Date Recorded By Document 04/11/19 01:48 [id number] [email or web address] 04/11/19 01:49 [id number] 04/11/19 01:48 PMRU Outcome: Genitourinary/ Gastrointestinal Current Gastrointestinal Outcome/Goals Maintain/ Achieve Bowel Regularity in Accordance with Pt's Baseline Remain Free of Emesis Prevent Constipation Other GI Outcome/Goals colostomy since winter per Progression Toward Outcome/Goals Progressing Current Genitourinary Outcome/Goals Maintain/ Achieve Adequate Urinary Output Remain Free of Hospital- Acquired UTI Other Genitourinary Outcome/Goals arriaga x 4 years . changed on 03/17/19 Progression Toward Outcome/Goals Progressing Medication Administration Start: 04/09/19 12:57 Freq: DAILY@699,190 Status: Active Target: 04/16/19 Protocol: Activity Type Activity Date Activity User E-Sign Co-Sign Detail Recorded Client Recorded Date Recorded By Document 04/11/19 01:48 [id number] [id number] 04/11/19 01:49 [id number] 04/11/19 01:48 PMRU Outcome: Medication Administration Assess Patient Knowledge/Teach Med Yes Education for all Meds Current Accident Investigator Outcome/Goals Family/ Caregiver Administer Medications at Home Demonstrates Understanding Progression Towards Outcome/Goals Progressing Is Patient Going Home on Lovenox? No Mobility- Improve/Maintain Start: 04/09/19 18:10 Freq: DAILY@0700,1900 Status: Active Target: 04/14/19 Protocol: Activity Type Activity Date Activity User E-Sign Co-Sign Detail Recorded Client Recorded Date Recorded By Document 04/09/19 18:10 [id number] 04/09/19 18:11 [id number] 04/09/19 18:10 PMRU Outcome: Mobility Physical Therapy Evaluation and Yes Treatment Activity OOB with Assistance Yes Device Yes Assistance Yes Patient to be seen 5x/wk for 60-120 min/ Therex day for: Mobility Training W/C Mobility Balance Current Mobility Outcome/Goals Improve Mobility Status Progression Toward Outcome/Goals Goal Initiation Bed Mobility Yes: min Ax1 Transfers Yes: total A with laila lift Gait x ft No W/C Mobility x ft Yes: 150' supervision Up/Down Stairs No With HEP Yes: supervision Neurological- Improve/Maintain Start: 04/09/19 12:57 Freq: DAILY@699,[id number] Status: Active Target: 04/16/19 Protocol: Activity Type Activity Date Activity User E-Sign Co-Sign Detail Recorded Client Recorded Date Recorded By Document 04/11/19 01:48 [id number] 04/11/19 01:49 [id number] 04/11/19 01:48 PMRU Outcome: Neurological Weakness/Aphasia Weakness Weakness/Aphasia Comment upper body weakness, paraplegia from spinal tumor since the Current Neurological Outcome/Goals Maintain/ Achieve Baseline Neurological Status Prevent Avoidable Neurological Decline Maintain/ Improve Strength/ROM Progression Toward Outcome/Goals Progressing Pain/Comfort- Improve/Maintain Start: 04/09/19 12:57 Freq: DAILY@699,[id number] Status: Active Target: 04/16/19 Protocol: Activity Type Activity Date Activity User E-Sign Co-Sign Detail Recorded Client Recorded Date Recorded By Document 04/11/19 01:48 [id number] [email or web address] 04/11/19 01:49 [id number] 04/11/19 01:48 PMRU Outcome: Pain/Comfort Current Pain/Comfort Outcome/Goals Demonstrates Knowledge and Use of Available Comfort Measures Achieves Acceptable Comfort/Pain Level as Determined by Patient/Condit Maintain Comfort Level Allowing Patient to Fully Participate in Rehab Progression Toward Outcome/Goals Progressing Outcome/Goals Met Comment pt denied pain Safety- Improve/Maintain Start: 04/09/19 12:56 Freq: DAILY@699,1900 Status: Active Target: 04/16/19 Protocol: Activity Type Activity Date Activity User E-Sign Co-Sign Detail Recorded Client Recorded Date Recorded By Document 04/11/19 01:48 [id number] [email or web address] 04/11/19 01:49 [id number] 04/11/19 01:48 PMRU Outcome: Safety Current Safety Outcome/Goals Remain Free of Injury or Harm Cooperates with Safety Measures for Least Restrictive Environment Prevent Falls/ Injury Progression Toward Outcome/Goals Progressing Outcome/Goals Met Comment NEIL armlevy Skin- Improve/Maintain Start: 04/09/19 12:57 Freq: DAILY@0700,1900 Status: Active Target: 04/16/19 Protocol: Activity Type Activity Date Activity User E-Sign Co-Sign Detail Recorded Client Recorded Date Recorded By Document 04/11/19 01:48 [id number] [email or web address] 04/11/19 01:49 [id number] 04/11/19 01:48 PMRU Outcome: Skin Skin Risk Level Very High Risk Skin Orders Dressing Change Spenco Boots Turn/Position q2hr While in Bed Other Skin Orders Comment juliana icu bed Current Skin Outcome/Goals Maintain/ Improve Skin Integrity Maintain/ Improve Wound Status Progression Toward Outcome/Goals Progressing - Interdisciplinary Staff Present Customs Compliance Director/Social Work Staff Present: Kayli Meyer ICU TECH Nursing Staff Present: Anaid Grady RN OT Staff Present: Shanta Holden PT Staff Present: Sahara Weiner Medicine Note: Length of Stay: 11 days Anticipated Discharge Destination: Home Tentative Discharge Date: 04/22/19 Discharged to: Home
[2019-04-11] MEDS: Collagenase 250 UNITS/GM OINT* 1 APPLIC OINT TOPICAL SCH (16:05)
[2019-04-11] MEDS: Ezetimibe TAB* 10 MG PO SCH (17:12)
[2019-04-11] MEDS: Doxazosin TAB* 2 MG PO SCH (19:51)
--- NOTE | 2019-04-11 20:25 | PN ---
Progress Note Date of Service: 04/11/19 Note: CARLOTA MONTIEL was visited. Therapy notes read and reviewed. He was discussed in interdisciplinary plan of care rounds. He has better pain control but he is quite weak. Needs a lot of assistance. BP a little better Current Medications: Active Medications Generic Name Dose Route Start Last Admin Trade Name Freq PRN Reason Stop Dose Admin Acetaminophen 650 mg 04/09/19 13:00 04/11/19 00:02 Tylenol Tab* PO 650 mg Q6H PRN Administration MILD PAIN or TEMP > 100.4 Amlodipine Besylate 10 mg 04/10/19 09:00 04/11/19 08:41 Norvasc Tab* PO 10 mg DAILY RADHA Administration Aspirin 81 mg 04/10/19 09:00 04/11/19 08:42 Aspirin Ec Tab* PO 81 mg DAILY RADHA Administration Carvedilol 25 mg 04/09/19 21:00 04/11/19 19:51 Coreg Tab* PO 25 mg BID RADHA Administration Cholecalciferol 1,000 units 04/10/19 09:00 04/11/19 08:42 Vitamin D Tab* PO 1,000 units DAILY RADHA Administration Collagenase 1 applic 04/10/19 09:00 04/11/19 16:05 Santyl 250 Units/Gm Oint* TOPICAL 1 applic DAILY RADHA Administration Cyanocobalamin 1,000 mcg 04/10/19 09:00 04/11/19 08:42 Vitamin B12 Tab* PO 1,000 mcg DAILY RADHA Administration Docusate Sodium 100 mg 04/09/19 21:00 04/11/19 19:51 Colace Cap* PO 100 mg BID RADHA Administration Doxazosin Mesylate 2 mg 04/09/19 21:00 04/11/19 19:51 Cardura Tab* PO 2 mg BEDTIME RADHA Administration Hydralazine HCl 25 mg 04/10/19 21:00 04/11/19 19:51 Apresoline Tab* PO 25 mg TID RADHA Administration Hydromorphone HCl 2 mg 04/09/19 13:18 Dilaudid Tab* PO Q4H PRN PAIN - SEVERE Isosorbide Dinitrate 10 mg 04/10/19 21:00 04/11/19 19:50 Isordil Tab* PO 10 mg TID RADHA Administration Levetiracetam 1,000 mg 04/09/19 21:00 04/11/19 19:51 Keppra Tab* PO 04/11/19 23:59 1,000 mg BID RADHA Administration Levetiracetam 500 mg 04/12/19 09:00 Keppra Tab* PO BID RADHA Magnesium Hydroxide 30 ml 04/09/19 13:00 Milk Of Iraj Liq* PO Q6H PRN CONSTIPATION Pto:Nft* ( 1 mg 04/09/19 22:00 04/11/19 15:05 Levorphanol 2mg PO 1 mg Tablet) Q8HR RADHA Administration Pantoprazole Sodium 40 mg 04/09/19 21:00 04/11/19 19:51 Protonix Tab* PO 40 mg BID RADHA Administration Pregabalin 100 mg 04/09/19 21:00 04/11/19 19:51 Lyrica Cap(*) PO 100 mg TID RADHA Administration Senna 2 tab 04/09/19 13:00 Senokot 8.6 Mg Tab* PO BEDTIME PRN CONSTIPATION Vital Signs: Vital Signs Temp Pulse Resp BP Pulse Ox 98.1 F 81 18 120/48 94 04/11/19 17:24 04/11/19 17:24 04/11/19 19:51 04/11/19 17:24 04/11/19 19:18 Lab Results: Laboratory Results - last 24 hr 04/11/19 04/11/19 04:13 04:13 WBC 9.4 RBC 2.79 L Hgb 7.9 L Hct 24 L MCV 86 MCH 28 MCHC 33 RDW 21 H Plt Count 285 MPV 7.4 Neut % (Auto) 60.2 Lymph % (Auto) 23.7 Culberson % (Auto) 13.3 Eos % (Auto) 2.5 Baso % (Auto) 0.3 Absolute Neuts (auto) 5.7 Absolute Lymphs (auto) 2.2 Absolute Monos (auto) 1.3 H Absolute Eos (auto) 0.2 Absolute Basos (auto) 0.0 Absolute Nucleated RBC 0.0 Nucleated RBC % 0.0 Sodium 137 Potassium 5.1 H Chloride 106 Carbon Dioxide 25 Anion Gap 6 BUN 70 H Creatinine 2.49 H Est GFR ( Amer) 30.9 Est GFR (Non-Af Amer) 25.6 BUN/Creatinine Ratio 28.1 H Glucose 91 Calcium 10.3 Total Bilirubin 0.20 AST 8 L ALT 10 Alkaline Phosphatase 107 H Total Protein 5.4 L Albumin 2.9 L Globulin 2.5 Albumin/Globulin Ratio 1.2 Exam: HEENT: EOMI LUNGS: Clear HEART: reg Rhythm ABDOMEN: Soft, +BS, Ostomy SKIN: 4cm left ischial ulcer NEUROLOGIC: A&O. No movement in legs. Limited sensation below waist Assessment/Plan: 1. Ependymoma with Paraplegia: PT/OT 2. Ischial Pressure Ulcer: Wound consult. Santyl/calcium alginate. Roho when in chair 3. PRES: On multiple BP meds, but now BPs are running low. Tapering Isordil and Hydralazine. On Norvasc/Coreg 4. Chronic Neuropathic Pain: From tumor. Levorphanol has improved situation 5. Seizures: On Keppra. Lowering dose. Seizures were felt to be possibly from Zyvox 6. Neurogenic Bladder: Fischer 7. NSVT on Monitor at [facility]: Coreg 8. Acute on chronic renal failure: Cr 2.49 which is a little up from previous. Will check Sunday 9. Advanced Directives: is HCP. Full code 04/11/19 20:25
[2019-04-11] MEDS ORDERED: LEVORPHANOL 2 MG PO ONE (21:16)
[2019-04-12] MEDS ORDERED: LEVORPHANOL 2 MG PO ONE ×2 (08:35→15:16)
[2019-04-12] MEDS: LEVORPHANOL 2 MG PO SCH ×3 (08:35→21:23)
[2019-04-12] MEDS: amLODIPine TAB* 5 MG PO SCH (08:36)
[2019-04-12] MEDS: Cyanocobalamin TAB* 500 MCG PO SCH (08:37)
[2019-04-12] MEDS: Aspirin EC TAB* 81 MG TAB.EC PO SCH (08:37)
[2019-04-12] MEDS: Pantoprazole TAB * 40 MG TAB PO SCH ×2 (08:38→21:25)
[2019-04-12] MEDS: levETIRAcetam TAB* 500 MG PO SCH ×2 (08:38→21:14)
[2019-04-12] MEDS: Pregabalin CAP(*) 100 MG PO SCH ×3 (08:38→21:22)
[2019-04-12] MEDS: Docusate CAP* 100 MG PO SCH ×2 (08:38→21:25)
[2019-04-12] MEDS: Cholecalciferol TAB* 1000 UNITS PO SCH (08:38)
[2019-04-12] MEDS: Carvedilol TAB* 25 MG PO SCH ×3 (08:39→21:27)
[2019-04-12] MEDS: Isosorbide Dinitrate TAB* 20 MG PO SCH ×4 (08:40→21:28)
[2019-04-12] MEDS: hydrALAZINE TAB* 25 MG PO SCH ×4 (08:40→21:28)
[2019-04-12] MEDS: Collagenase 250 UNITS/GM OINT* 1 APPLIC OINT TOPICAL SCH (10:08)
--- NOTE | 2019-04-12 10:50 | PN ---
Progress Note Date of Service: 04/12/19 Note: CARLOTA MONTIEL was visited. Therapy notes read and reviewed. His buttock looks worse than yesterday. There are streaks of what appears to be bruising on both sides that don't appear to correlate with shellie straps. Could be delayed reaction from ambulance ride?. Current Medications: Active Medications Generic Name Dose Route Start Last Admin Trade Name Freq PRN Reason Stop Dose Admin Acetaminophen 650 mg 04/09/19 13:00 04/11/19 00:02 Tylenol Tab* PO 650 mg Q6H PRN Administration MILD PAIN or TEMP > 100.4 Amlodipine Besylate 10 mg 04/10/19 09:00 04/12/19 08:36 Norvasc Tab* PO 10 mg DAILY RADHA Administration Aspirin 81 mg 04/10/19 09:00 04/12/19 08:37 Aspirin Ec Tab* PO 81 mg DAILY RADHA Administration Carvedilol 25 mg 04/09/19 21:00 04/12/19 08:39 Coreg Tab* PO 25 mg BID RADHA Administration Cholecalciferol 1,000 units 04/10/19 09:00 04/12/19 08:38 Vitamin D Tab* PO 1,000 units DAILY RADHA Administration Collagenase 1 applic 04/10/19 09:00 04/12/19 10:08 Santyl 250 Units/Gm Oint* TOPICAL 1 applic DAILY RADHA Administration Cyanocobalamin 1,000 mcg 04/10/19 09:00 04/12/19 08:37 Vitamin B12 Tab* PO 1,000 mcg DAILY RADHA Administration Docusate Sodium 100 mg 04/09/19 21:00 04/12/19 08:38 Colace Cap* PO 100 mg BID RADHA Administration Doxazosin Mesylate 2 mg 04/09/19 21:00 04/11/19 19:51 Cardura Tab* PO 2 mg BEDTIME RADHA Administration Hydralazine HCl 25 mg 04/12/19 14:00 Apresoline Tab* PO Q8HR RADHA Hydromorphone HCl 2 mg 04/09/19 13:18 Dilaudid Tab* PO Q4H PRN PAIN - SEVERE Isosorbide Dinitrate 10 mg 04/10/19 21:00 04/12/19 08:40 Isordil Tab* PO 10 mg TID RADHA Administration Levetiracetam 500 mg 04/12/19 09:00 10/05/19 08:38 Keppra Tab* PO 500 mg BID RADHA Administration Levorphanol Tartrate 1 mg 04/12/19 06:00 04/12/19 08:35 Levorphanol 2 Mg (Nf) PO 1 mg Q8HR RADHA Administration Magnesium Hydroxide 30 ml 04/09/19 13:00 Milk Of Magnadamaris Liq* PO Q6H PRN CONSTIPATION Pantoprazole Sodium 40 mg 04/09/19 21:00 04/12/19 08:38 Protonix Tab* PO 40 mg BID RADHA Administration Pregabalin 100 mg 04/09/19 21:00 04/12/19 08:38 Lyrica Cap(*) PO 100 mg TID RADHA Administration Senna 2 tab 04/09/19 13:00 Senokot 8.6 Mg Tab* PO BEDTIME PRN CONSTIPATION Vital Signs: Vital Signs Temp Pulse Resp BP Pulse Ox 99.7 F 89 18 142/58 95 04/12/19 06:15 04/12/19 06:15 04/12/19 08:38 04/12/19 08:36 04/12/19 06:15 Exam: HEENT: EOMI LUNGS: Clear HEART: reg Rhythm ABDOMEN: Soft, +BS, Ostomy with stool SKIN: 4cm left ischial ulcer. Streaks over buttocks like long thin bruises. NEUROLOGIC: A&O. No movement in legs. Limited sensation below waist Assessment/Plan: 1. Ependymoma with Paraplegia: PT/OT 2. Ischial Pressure Ulcer: Wound consult. Santyl/calcium alginate. Roho when in chair. Will have wound assess buttocks on Sunday 3. PRES: On multiple BP meds, but now BPs are running low. Tapering Isordil and Hydralazine. On Norvasc/Coreg 4. Chronic Neuropathic Pain: From tumor. Levorphanol has improved situation 5. Seizures: On Keppra. Lowering dose. Seizures were felt to be possibly from Zyvox 6. Neurogenic Bladder: Fischer 7. NSVT on Monitor at [facility]: Coreg 8. Acute on chronic renal failure: Cr 2.49 which is a little up from previous. Will check Sunday 9. Advanced Directives: is HCP. Full code 04/12/19 10:52
[2019-04-12] MEDS: Acetaminophen TAB* 325 MG PO PRN (17:25)
[2019-04-12] MEDS ORDERED: NS 0.9% 1000 ML** 1,000 ML IV ONE ×2 (17:40→21:49)
--- NOTE | 2019-04-12 17:50 | PN ---
Hospitalist Progress Note Date of Service: 04/12/19 CAT CALL NOTE: Called to bedside for febrile PMRU/Rehab patient with fever and new O2 requirement. Patient is a transfer from [facility] this past Sunday after 7 week admission with sepsis, sacral wound and debridement, PRES, spinal tumor/ paraplegia. Also had adverse reaction to an antibiotic that caused a seizure. Patient currently has temp 101, BP 90/60 manual and sat is 96% on 2L NC. He is responding appropriately, at bedside. Lungs are clear. Urine output to arriaga has decreased somewhat today per staff, per , he does appear more tired today. Per primary RN, sacral wound bed is clean with no drainage or pus. Plan: Reed culture, draw CBC, CMP, lactic, start IV access and give 1 liter NS, tylenol for fever. Swab for influenza. Hold parameters placed on BP meds. Scoring for SIRS. Reassess in one hour after labs and xray returned and bolus complete then determine if patient should be transferred to floor or can stay in PMRU. Coordinated with staff.
[2019-04-12] MEDS ORDERED: amLODIPine TAB* 5 MG PO SCH (17:54)
[2019-04-12 19:06] LABS: Hematocrit 24 % (42-52); Hemoglobin 7.7 g/dL (14.0-18.0); Mean Corpuscular HGB Conc 33 g/dL (31-36); Mean Corpuscular Hemoglobin 28 pg (27-31); Mean Corpuscular Volume 86 fL (80-94); Mean Platelet Volume 7.2 fL (7.4-10.4); Platelet Count 260 10^3/uL (150-450); Red Blood Count 2.75 10^6 /uL (4.18-5.48); Red Cell Distribution Width 22 % (10-15); White Blood Count 13.1 10^3/uL (3.5-10.8)
[2019-04-12 19:07] LABS: ABS Basophils 0.1 10^3/ul (0-0.2); ABS Eosinophils 0.1 10^3/ul (0-0.6); ABS Lymphocytes 1.6 10^3/ul (1.0-4.8); ABS Monocytes 2.1 10^3/ul (0-0.8); ABS Neutrophils 9.3 10^3/ul (1.5-7.7); Eosinophil % 0.6 %; Lymphocyte % 12.2 %
[2019-04-12 19:09] LABS: Influenza A Molecular NEGATIVE (Negative); Influenza B Molecular NEGATIVE (Negative)
[2019-04-12 19:23] LABS: Albumin 2.8 g/dL (3.2-5.2); BUN/Creatinine Ratio 34.7 (8-20); Calcium 9.7 mg/dL (8.6-10.3); EGFR African American 32.9 (>60); EGFR Non-African American 27.2 (>60); Globulin 2.7 g/dL (2-4); Total Bilirubin 0.2 mg/dL (0.2-1.0); Total Protein 5.5 g/dL (6.4-8.9)
[2019-04-12 19:27] LABS: Potassium 5.5 mmol/L (3.5-5.0)
[2019-04-12] MEDS: Doxazosin TAB* 2 MG PO SCH (21:13)
[2019-04-12] MEDS ORDERED: Vancomycin per Pharmacy* NOTE FOLLOW UP PRN (21:49)
[2019-04-12] MEDS ORDERED: Zosyn per Pharmacy* NOTE FOLLOW UP PRN (21:49)
[2019-04-12] MEDS ORDERED: ZOSYN 3.375 GM x ONE DOSE over 30 miuntes IVPB ×2 (22:00)
--- NOTE | 2019-04-12 22:03 | PN ---
Progress Note Date of Service: 04/12/19 Note: Obi visited. Events of evening noted. CAT call at 1740 for altered mental status, fever to 102, low BPs. Cultures drawn. CXR done. UA not done, I will order. Spoke with hospitalist, Dr. Booker. Plan to start antibiotics, fluids, and if BP doesn't come up may need to transfer to floor. I spoke with his , who is present. . DNR, MOLST ordered. Current Medications: Active Medications Generic Name Dose Route Start Last Admin Trade Name Freq PRN Reason Stop Dose Admin Acetaminophen 650 mg 04/09/19 13:00 04/12/19 17:25 Tylenol Tab* PO 650 mg Q6H PRN Administration MILD PAIN or TEMP > 100.4 Amlodipine Besylate 10 mg 04/13/19 09:00 Norvasc Tab* PO DAILY@0900 RADHA Aspirin 81 mg 04/10/19 09:00 04/12/19 08:37 Aspirin Ec Tab* PO 81 mg DAILY RADHA Administration Carvedilol 25 mg 04/12/19 21:00 04/12/19 21:27 Coreg Tab* PO Not Given BID RADHA Cholecalciferol 1,000 units 04/10/19 09:00 04/12/19 08:38 Vitamin D Tab* PO 1,000 units DAILY RADHA Administration Collagenase 1 applic 04/10/19 09:00 04/12/19 10:08 Santyl 250 Units/Gm Oint* TOPICAL 1 applic DAILY RADHA Administration Cyanocobalamin 1,000 mcg 04/10/19 09:00 04/12/19 08:37 Vitamin B12 Tab* PO 1,000 mcg DAILY RADHA Administration Docusate Sodium 100 mg 04/09/19 21:00 04/12/19 21:25 Colace Cap* PO 100 mg BID RADHA Administration Doxazosin Mesylate 2 mg 04/09/19 21:00 04/12/19 21:13 Cardura Tab* PO Not Given BEDTIME RADHA Hydralazine HCl 25 mg 04/12/19 22:00 04/12/19 21:28 Apresoline Tab* PO Not Given Q8HR RADHA Hydromorphone HCl 2 mg 04/09/19 13:18 Dilaudid Tab* PO Q4H PRN PAIN - SEVERE Piperacillin Sod/Tazobactam 100 mls @ 200 mls/hr 04/12/19 22:00 Sod 3.375 gm/ Sodium Chloride IVPB 04/12/19 22:29 ONCE ONE Vancomycin HCl 1,500 mg/ 250 mls @ 166.667 mls/hr 04/12/19 22:30 Sodium Chloride IVPB 04/12/19 23:59 ONCE ONE Sodium Chloride 1,000 mls @ 0 mls/hr 04/12/19 21:49 Ns 0.9% 1000 Ml IV 04/12/19 21:50 .BOLUS ONE Wide Open Isosorbide Dinitrate 10 mg 04/12/19 21:00 04/12/19 21:28 Isordil Tab* PO Not Given TID [facility] Levetiracetam 500 mg 04/12/19 09:00 04/12/19 21:14 Keppra Tab* PO Not Given BID [facility] Levorphanol Tartrate 1 mg 04/12/19 06:00 04/12/19 21:23 Levorphanol 2 Mg (Nf) PO Not Given Q8HR [facility] Magnesium Hydroxide 30 ml 04/09/19 13:00 Milk Of Magnesia Liq* PO Q6H PRN CONSTIPATION Pantoprazole Sodium 40 mg 04/09/19 21:00 04/12/19 21:25 Protonix Tab* PO 40 mg BID [facility] Administration Pharmacy Consult 1 note 04/12/19 21:49 Zosyn Per Pharmacy* FOLLOW UP . PRN PER PROTOCOL Pharmacy Consult 1 note 04/12/19 21:49 Vancomycin Per Pharmacy* FOLLOW UP . PRN PER PROTOCOL Pregabalin 100 mg 04/09/19 21:00 04/12/19 21:22 Lyrica Cap(*) PO Not Given TID [facility] Senna 2 tab 04/09/19 13:00 Senokot 8.6 Mg Tab* PO BEDTIME PRN CONSTIPATION Vital Signs: Vital Signs Temp Pulse Resp BP Pulse Ox 99.8 F 88 18 92/50 98 04/12/19 20:45 04/12/19 20:45 04/12/19 19:15 04/12/19 20:45 04/12/19 20:45 Lab Results: Laboratory Results - last 24 hr 04/12/19 04/12/19 04/12/19 17:25 18:00 18:58 WBC 13.1 H RBC 2.75 L Hgb 7.7 L Hct 24 L MCV 86 MCH 28 MCHC 33 RDW 22 H Plt Count 260 MPV 7.2 L Neut % (Auto) 70.6 Lymph % (Auto) 12.2 [place] % (Auto) 16.0 Eos % (Auto) 0.6 Baso % (Auto) 0.6 Absolute Neuts (auto) 9.3 H Absolute Lymphs (auto) 1.6 Absolute Monos (auto) 2.1 H Absolute Eos (auto) 0.1 Absolute Basos (auto) 0.1 Absolute Nucleated RBC 0.0 Nucleated RBC % 0.0 Sodium Potassium Chloride Carbon Dioxide Anion Gap BUN Creatinine Est GFR ( Amer) Est GFR (Non-Af Amer) BUN/Creatinine Ratio Glucose POC Glucose (mg/dL) 149 H Lactic Acid Calcium Total Bilirubin AST ALT Alkaline Phosphatase Total Protein Albumin Globulin Albumin/Globulin Ratio Influenza A (Rapid) Negative Influenza B (Rapid) Negative 04/12/19 04/12/19 18:58 18:58 WBC RBC Hgb Hct MCV MCH MCHC RDW Plt Count MPV Neut % (Auto) Lymph % (Auto) [place] % (Auto) Eos % (Auto) Baso % (Auto) Absolute Neuts (auto) Absolute Lymphs (auto) Absolute Monos (auto) Absolute Eos (auto) Absolute Basos (auto) Absolute Nucleated RBC Nucleated RBC % Sodium 136 Potassium 5.5 H Chloride 107 Carbon Dioxide 23 Anion Gap 6 BUN 82 H Creatinine 2.36 H Est GFR ( Amer) 32.9 Est GFR (Non-Af Amer) 27.2 BUN/Creatinine Ratio 34.7 H Glucose 143 H POC Glucose (mg/dL) Lactic Acid 0.8 Calcium 9.7 Total Bilirubin 0.20 AST 11 L ALT 14 Alkaline Phosphatase 116 H Total Protein 5.5 L Albumin 2.8 L Globulin 2.7 Albumin/Globulin Ratio 1.0 Influenza A (Rapid) Influenza B (Rapid) Exam: MSE: Slightly disoriented LUNGS: clear HEART: reg ABDOMEN: Ostomy in place Assessment/Plan: 1. Fever, low BP, altered MS: IV Vanco, Zosyn. Fluid Bolus. Check U/A. Low threshold to transfer to acute medical service 04/12/19 22:02
[2019-04-12 22:15] LABS: Urine Appearance Cloudy; Urine Bacteria 1+ (Absent); Urine Bilirubin Negative (Negative); Urine Blood Negative (Negative); Urine Color Yellow; Urine Glucose Negative (Negative); Urine Ketones Negative (Negative); Urine Nitrite Negative (Negative); Urine Protein Negative (Negative); Urine Red Blood Cell Absent (Absent); Urine Specific Gravity 1.013 (1.010-1.030); Urine Urobilinogen Negative (Negative); Urine White Blood Cell 3+(>20/hpf) (Absent)
[2019-04-12] MEDS ORDERED: Vancomycin 1500 MG IV - x ONCE IVPB ONE ×2 (22:30)
[2019-04-13] MEDS: ZOSYN 3.375 GM Q8H per EXTENDED INFUSION IVPB SCH ×4 (02:15→10:08)
[2019-04-13] MEDS: LEVORPHANOL 2 MG PO SCH ×3 (05:27→15:02)
[2019-04-13] MEDS: hydrALAZINE TAB* 25 MG PO SCH ×2 (05:27→15:03)
[2019-04-13 06:39] LABS: Hematocrit 24 % (42-52); Hemoglobin 7.7 g/dL (14.0-18.0); Mean Corpuscular HGB Conc 33 g/dL (31-36); Mean Corpuscular Hemoglobin 28 pg (27-31); Mean Corpuscular Volume 86 fL (80-94); Mean Platelet Volume 7.3 fL (7.4-10.4); Platelet Count 241 10^3/uL (150-450); Red Blood Count 2.74 10^6 /uL (4.18-5.48); Red Cell Distribution Width 22 % (10-15); White Blood Count 12.9 10^3/uL (3.5-10.8)
[2019-04-13 06:43] LABS: ABS Basophils 0.1 10^3/ul (0-0.2); ABS Eosinophils 0.1 10^3/ul (0-0.6); ABS Lymphocytes 1.6 10^3/ul (1.0-4.8); ABS Monocytes 1.7 10^3/ul (0-0.8); ABS Neutrophils 9.3 10^3/ul (1.5-7.7); Eosinophil % 1.1 %; Lymphocyte % 12.2 %
[2019-04-13 06:54] LABS: Albumin 2.8 g/dL (3.2-5.2); EGFR African American 34.4 (>60); EGFR Non-African American 28.4 (>60); Globulin 2.8 g/dL (2-4); Total Bilirubin 0.2 mg/dL (0.2-1.0); Total Protein 5.6 g/dL (6.4-8.9)
[2019-04-13 07:01] LABS: Potassium 5.4 mmol/L (3.5-5.0)
[2019-04-13] MEDS ORDERED: amLODIPine TAB* 5 MG PO SCH (09:00)
[2019-04-13] MEDS ORDERED: LEVORPHANOL 2 MG PO ONE ×2 (10:09→15:02)
[2019-04-13] MEDS: Pregabalin CAP(*) 100 MG PO SCH ×2 (10:10→15:02)
[2019-04-13] MEDS: Carvedilol TAB* 25 MG PO SCH (10:10)
[2019-04-13] MEDS: Docusate CAP* 100 MG PO SCH (10:11)
[2019-04-13] MEDS: Cholecalciferol TAB* 1000 UNITS PO SCH (10:11)
[2019-04-13] MEDS: Aspirin EC TAB* 81 MG TAB.EC PO SCH (10:11)
[2019-04-13] MEDS: Isosorbide Dinitrate TAB* 20 MG PO SCH ×2 (10:13→15:02)
[2019-04-13] MEDS: Cyanocobalamin TAB* 500 MCG PO SCH (10:13)
[2019-04-13] MEDS: Pantoprazole TAB * 40 MG TAB PO SCH (10:14)
[2019-04-13] MEDS: levETIRAcetam TAB* 500 MG PO SCH (10:14)
[2019-04-13] MEDS: Collagenase 250 UNITS/GM OINT* 1 APPLIC OINT TOPICAL SCH (10:14)
[2019-04-13] MEDS ORDERED: Vancomycin(*) 750 MG in NS 0.9% 250 ML* 250 ML IVPB SCH (11:00)
--- NOTE | 2019-04-13 13:38 | PN ---
Progress Note Date of Service: 04/13/19 Note: CARLOTA MONTIEL was visited. Nursing notes read and reviewed. Case discussed with hospitalist. At present, his fever has abated. His CXR showed no I/E and U/ A was equivocal. Micro pending. WBC largely unchanged after receiving dose of Vanco and Zosyn. Will d/c Vanco as it is unclear what that would be treating, and potential further damage to kidneys. Will continue Zosyn for now. Remains quite fatigued. BP better; holding hydralazine. Pain an issue, back on Levorphanol Current Medications: Active Medications Generic Name Dose Route Start Last Admin Trade Name Freq PRN Reason Stop Dose Admin Acetaminophen 650 mg 04/09/19 13:00 04/12/19 17:25 Tylenol Tab* PO 650 mg Q6H PRN Administration MILD PAIN or TEMP > 100.4 Amlodipine Besylate 10 mg 04/13/19 09:00 04/13/19 10:12 Norvasc Tab* PO 10 mg DAILY@0900 RADHA Administration Aspirin 81 mg 04/10/19 09:00 04/13/19 10:11 Aspirin Ec Tab* PO 81 mg DAILY RADHA Administration Carvedilol 25 mg 04/12/19 21:00 04/13/19 10:10 Coreg Tab* PO 25 mg BID RADHA Administration Cholecalciferol 1,000 units 04/10/19 09:00 04/13/19 10:11 Vitamin D Tab* PO 1,000 units DAILY RADHA Administration Collagenase 1 applic 04/10/19 09:00 04/13/19 10:14 Santyl 250 Units/Gm Oint* TOPICAL 1 applic DAILY RADHA Administration Cyanocobalamin 1,000 mcg 04/10/19 09:00 04/13/19 10:13 Vitamin B12 Tab* PO 1,000 mcg DAILY RADHA Administration Docusate Sodium 100 mg 04/09/19 21:00 04/13/19 10:11 Colace Cap* PO 100 mg BID RADHA Administration Doxazosin Mesylate 2 mg 04/09/19 21:00 04/12/19 21:13 Cardura Tab* PO Not Given BEDTIME ARDHA Hydralazine HCl 25 mg 04/12/19 22:00 04/13/19 05:27 Apresoline Tab* PO Not Given Q8HR RADHA Hydromorphone HCl 2 mg 04/09/19 13:18 Dilaudid Tab* PO Q4H PRN PAIN - SEVERE Piperacillin Sod/Tazobactam 100 mls @ 200 mls/hr 04/13/19 17:00 Sod 3.375 gm/ Sodium Chloride IVPB Q6H RADHA Isosorbide Dinitrate 10 mg 04/12/19 21:00 04/13/19 10:13 Isordil Tab* PO 10 mg TID RADHA Administration Levetiracetam 500 mg 04/12/19 09:00 04/13/19 10:14 Keppra Tab* PO 500 mg BID RADHA Administration Levorphanol Tartrate 1 mg 04/12/19 06:00 04/13/19 10:09 Levorphanol 2 Mg (Nf) PO 1 mg Q8HR RADHA Administration Magnesium Hydroxide 30 ml 04/09/19 13:00 Milk Of Magnesia Liq* PO Q6H PRN CONSTIPATION Pantoprazole Sodium 40 mg 04/09/19 21:00 04/13/19 10:14 Protonix Tab* PO 40 mg BID RADHA Administration Pharmacy Consult 1 note 04/12/19 21:49 Zosyn Per Pharmacy* FOLLOW UP . PRN PER PROTOCOL Pharmacy Consult 1 note 04/12/19 21:49 Vancomycin Per Pharmacy* FOLLOW UP . PRN PER PROTOCOL Pharmacy Profile Note 1 note 04/14/19 11:00 Vancomycin Trough Check FOLLOW UP 04/14/19 11:01 1100 ONE Pregabalin 100 mg 04/09/19 21:00 04/13/19 10:10 Lyrica Cap(*) PO 100 mg TID RADHA Administration Senna 2 tab 04/09/19 13:00 Senokot 8.6 Mg Tab* PO BEDTIME PRN CONSTIPATION Vital Signs: Vital Signs Temp Pulse Resp BP Pulse Ox 99.4 F 90 20 135/48 96 04/13/19 13:00 04/13/19 13:00 04/13/19 13:00 04/13/19 13:00 04/13/19 13:00 Lab Results: Laboratory Results - last 24 hr 04/12/19 04/12/19 04/12/19 17:25 18:00 18:58 WBC 13.1 H RBC 2.75 L Hgb 7.7 L Hct 24 L MCV 86 MCH 28 MCHC 33 RDW 22 H Plt Count 260 MPV 7.2 L Neut % (Auto) 70.6 Lymph % (Auto) 12.2 [place] % (Auto) 16.0 Eos % (Auto) 0.6 Baso % (Auto) 0.6 Absolute Neuts (auto) 9.3 H Absolute Lymphs (auto) 1.6 Absolute Monos (auto) 2.1 H Absolute Eos (auto) 0.1 Absolute Basos (auto) 0.1 Absolute Nucleated RBC 0.0 Nucleated RBC % 0.0 Sodium Potassium Chloride Carbon Dioxide Anion Gap BUN Creatinine Est GFR ( Amer) Est GFR (Non-Af Amer) BUN/Creatinine Ratio Glucose POC Glucose (mg/dL) 149 H Lactic Acid Calcium Total Bilirubin AST ALT Alkaline Phosphatase Total Protein Albumin Globulin Albumin/Globulin Ratio Urine Color Urine Appearance Urine pH Ur Specific [place] Urine Protein Urine Ketones Urine Blood Urine Nitrate Urine Bilirubin Urine Urobilinogen Ur Leukocyte Esterase Urine WBC (Auto) Urine RBC (Auto) Urine Bacteria Urine Glucose Urine Ascorbic Acid Influenza A (Rapid) Negative Influenza B (Rapid) Negative 04/12/19 04/12/19 04/12/19 18:58 18:58 19:00 WBC RBC Hgb Hct MCV MCH MCHC RDW Plt Count MPV Neut % (Auto) Lymph % (Auto) [place] % (Auto) Eos % (Auto) Baso % (Auto) Absolute Neuts (auto) Absolute Lymphs (auto) Absolute Monos (auto) Absolute Eos (auto) Absolute Basos (auto) Absolute Nucleated RBC Nucleated RBC % Sodium 136 Potassium 5.5 H Chloride 107 Carbon Dioxide 23 Anion Gap 6 BUN 82 H Creatinine 2.36 H Est GFR ( Amer) 32.9 Est GFR (Non-Af Amer) 27.2 BUN/Creatinine Ratio 34.7 H Glucose 143 H POC Glucose (mg/dL) Lactic Acid 0.8 Calcium 9.7 Total Bilirubin 0.20 AST 11 L ALT 14 Alkaline Phosphatase 116 H Total Protein 5.5 L Albumin 2.8 L Globulin 2.7 Albumin/Globulin Ratio 1.0 Urine Color Yellow Urine Appearance Cloudy Urine pH 5.0 Ur Specific [place] 1.013 Urine Protein Negative Urine Ketones Negative Urine Blood Negative Urine Nitrate Negative Urine Bilirubin Negative Urine Urobilinogen Negative Ur Leukocyte Esterase 3+ A Urine WBC (Auto) 3+(>20/hpf) A Urine RBC (Auto) Absent Urine Bacteria 1+ A Urine Glucose Negative Urine Ascorbic Acid * A Influenza A (Rapid) Influenza B (Rapid) 04/13/19 04/13/19 06:27 06:27 WBC 12.9 H RBC 2.74 L Hgb 7.7 L Hct 24 L MCV 86 MCH 28 MCHC 33 RDW 22 H Plt Count 241 MPV 7.3 L Neut % (Auto) 72.3 Lymph % (Auto) 12.2 [place] % (Auto) 13.5 Eos % (Auto) 1.1 Baso % (Auto) 0.9 Absolute Neuts (auto) 9.3 H Absolute Lymphs (auto) 1.6 Absolute Monos (auto) 1.7 H Absolute Eos (auto) 0.1 Absolute Basos (auto) 0.1 Absolute Nucleated RBC 0.0 Nucleated RBC % 0.0 Sodium 138 Potassium 5.4 H Chloride 108 Carbon Dioxide 24 Anion Gap 6 BUN 84 H Creatinine 2.27 H Est GFR ( Amer) 34.4 Est GFR (Non-Af Amer) 28.4 BUN/Creatinine Ratio 37.0 H Glucose 111 H POC Glucose (mg/dL) Lactic Acid Calcium 10.0 Total Bilirubin 0.20 AST 14 ALT 18 Alkaline Phosphatase 114 H Total Protein 5.6 L Albumin 2.8 L Globulin 2.8 Albumin/Globulin Ratio 1.0 Urine Color Urine Appearance Urine pH Ur Specific [place] Urine Protein Urine Ketones Urine Blood Urine Nitrate Urine Bilirubin Urine Urobilinogen Ur Leukocyte Esterase Urine WBC (Auto) Urine RBC (Auto) Urine Bacteria Urine Glucose Urine Ascorbic Acid Influenza A (Rapid) Influenza B (Rapid) Exam: HEENT: EOMI LUNGS: Clear HEART: reg Rhythm ABDOMEN: Soft, +BS, Ostomy with stool SKIN: 4cm left ischial ulcer. Streaks over buttocks like long thin bruises, possibly from creases. NEUROLOGIC: A&O. No movement in legs. Limited sensation below waist Assessment/Plan: 1. Ependymoma with Paraplegia: PT/OT 2. Ischial Pressure Ulcer: Wound consult. Santyl/calcium alginate. Jennyo when in chair. Will have wound assess buttocks on Sunday 3. PRES: On multiple BP meds, but now BPs are running low. Tapering Isordil and holding Hydralazine. On Norvasc/Coreg 4. Chronic Neuropathic Pain: From tumor. Levorphanol has improved situation 5. Seizures: On Keppra. Lowering dose. Seizures were felt to be possibly from Zyvox 6. Neurogenic Bladder: Fischer 7. NSVT on Monitor at [facility]: Coreg 8. Acute on chronic renal failure: Cr 2.27. Will check Sunday 9. Advanced Directives: is HCP. Full code 10. Fever, increased WBC: On IV Zosyn. Vanco stopped. Await urine cultures. CXR negative, wound clean 04/13/19 13:39 04/13/19 13:40 04/13/19 13:41
[2019-04-13] MEDS: Acetaminophen TAB* 325 MG PO PRN (16:30)
[2019-04-13] MEDS ORDERED: [UNRECOGNIZED DRUG - REMARK] IVPB SCH ×2 (17:00)
[2019-04-13 19:55] VITALS: BP 105/42
--- NOTE | 2019-04-13 20:19 | PN ---
Subjective Date of Service: 04/13/19 Interval History: Patient is seen at 1700. Pt is feeling quite sleepy but per nursing is more alert now than last evening. He denies any pain at this time. He denies any SOB. Objective Active Medications: Acetaminophen (Tylenol Tab*) 650 mg PO Q6H PRN PRN Reason: MILD PAIN or TEMP > 100.4 Last Admin: 04/13/19 16:30 Dose: 650 mg Amlodipine Besylate (Norvasc Tab*) 10 mg PO DAILY@0900 [facility] Last Admin: 04/13/19 10:12 Dose: 10 mg Aspirin (Aspirin Ec Tab*) 81 mg PO DAILY [facility] Last Admin: 04/13/19 10:11 Dose: 81 mg Carvedilol (Coreg Tab*) 25 mg PO BID [facility] Last Admin: 04/13/19 10:10 Dose: 25 mg Cholecalciferol (Vitamin D Tab*) 1,000 units PO DAILY [facility] Last Admin: 04/13/19 10:11 Dose: 1,000 units Collagenase (Santyl 250 Units/Gm Oint*) 1 applic TOPICAL DAILY [facility] Last Admin: 04/13/19 10:14 Dose: 1 applic Cyanocobalamin (Vitamin B12 Tab*) 1,000 mcg PO DAILY [facility] Last Admin: 04/13/19 10:13 Dose: 1,000 mcg Docusate Sodium (Colace Cap*) 100 mg PO BID [facility] Last Admin: 04/13/19 10:11 Dose: 100 mg Doxazosin Mesylate (Cardura Tab*) 2 mg PO BEDTIME [facility] Last Admin: 04/12/19 21:13 Dose: Not Given Hydralazine HCl (Apresoline Tab*) 25 mg PO Q8HR [facility] Last Admin: 04/13/19 15:03 Dose: 25 mg Piperacillin Sod/Tazobactam (Sod 3.375 gm/ Sodium Chloride) 100 mls @ 200 mls/ hr IVPB Q6H [facility] Last Admin: 04/13/19 16:31 Dose: 200 mls/hr Isosorbide Dinitrate (Isordil Tab*) 10 mg PO TID [facility] Last Admin: 04/13/19 15:02 Dose: 10 mg Levetiracetam (Keppra Tab*) 500 mg PO BID [facility] Last Admin: 04/13/19 10:14 Dose: 500 mg Levorphanol Tartrate (Levorphanol 2 Mg (Nf)) 1 mg PO Q12HR [facility] Magnesium Hydroxide (Milk Of Magnesia Liq*) 30 ml PO Q6H PRN PRN Reason: CONSTIPATION Pantoprazole Sodium (Protonix Tab*) 40 mg PO BID [facility] Last Admin: 04/13/19 10:14 Dose: 40 mg Pharmacy Consult (Zosyn Per Pharmacy*) 1 note FOLLOW UP . PRN PRN Reason: PER PROTOCOL Pharmacy Consult (Vancomycin Per Pharmacy*) 1 note FOLLOW UP . PRN PRN Reason: PER PROTOCOL Pharmacy Profile Note (Vancomycin Trough Check) 1 note FOLLOW UP 1100 ONE Stop: 04/14/19 11:01 Pregabalin (Lyrica Cap(*)) 50 mg PO TID RADHA Senna (Senokot 8.6 Mg Tab*) 2 tab PO BEDTIME PRN PRN Reason: CONSTIPATION Vital Signs - 8 hr 04/13/19 04/13/19 04/13/19 13:00 15:02 15:07 Temperature 99.4 F 99 F Pulse Rate 90 92 Respiratory 20 18 18 Rate Blood Pressure 135/48 116/42 (mmHg) O2 Sat by Pulse 96 96 Oximetry 04/13/19 04/13/19 04/13/19 17:36 19:17 19:33 Temperature 100.8 F Pulse Rate 88 Respiratory 18 18 20 Rate Blood Pressure 140/52 (mmHg) O2 Sat by Pulse 96 96 Oximetry 04/13/19 19:54 Temperature 100.4 F Pulse Rate 88 Respiratory 20 Rate Blood Pressure 105/42 (mmHg) O2 Sat by Pulse 97 Oximetry Oxygen Devices in Use Now: Nasal Cannula Appearance: Elderly male sitting up in bed, sleepy but arousable, NAD Eyes: No Scleral Icterus Ears/Nose/Mouth/Throat: Mucous Membranes Moist Respiratory: Symmetrical Chest Expansion and Respiratory Effort, Clear to Auscultation - anteriorly Cardiovascular: NL Sounds; No Murmurs; No JVD, RRR, - - trace LE edema Abdominal: NL Sounds; No Tenderness; No Distention Extremities: No Clubbing, Cyanosis Skin: - - ulcerations not inspected by myself Neurological: - - oriented x3, sleepy Result Diagrams: 04/13/19 06:27 04/13/19 06:27 Microbiology and Other Data: Microbiology 04/12/19 18:58 Aerobic Blood Culture - Preliminary Blood Venous No Growth Day 1 Anaerobic Blood Culture - Preliminary No Growth Day 1 04/12/19 18:58 Aerobic Blood Culture - Preliminary Blood Venous No Growth Day 1 Anaerobic Blood Culture - Preliminary No Growth Day 1 04/12/19 19:00 Urine Culture - Preliminary Urine Pseudomonas Species Klebsiella Pneumoniae Diagnostic Imagin. Exam Date: 02/11/19 - VL ANK/BRACHIAL INDICES FINDINGS: The ankle brachial index on the right was 0.39 and on the left was 0.80. The ankle-brachial indices on the prior study were 0.93 and 0.91 respectively. There is monophasic flow within the right posterior tibial artery and monophasic flow within the right dorsalis pedis artery. There is biphasic flow within the left posterior tibial artery and biphasic flow within the left dorsalis pedis artery. IMPRESSION: SIGNIFICANTLY REDUCED ANKLE-BRACHIAL INDICES AND WAVEFORMS MORE SEVERE IN THE RIGHT LOWER EXTREMITY. CONSIDER A CT ANGIOGRAM OF THE AORTA AND LOWER EXTREMITIES FOR FURTHER EVALUATION. 2. Exam Date: 02/11/19 - MRI LOWER EXTREMITY RIGHT W/O IMPRESSION: SOFT TISSUE SWELLING AND SOFT TISSUE ULCER, NO SPECIFIC EVIDENCE FOR OSTEOMYELITIS. Assess/Plan/Problems-Billing Mr. Merino is a 73 yo M with a h/o paraplegia secondary to ependymoma, chronic decubitus ulcers (on feet, buttock, hip), who was hospitalized in [place] for about 7 weeks where he was treated for an infected decubitus ulcer complicated by PRES, seizures and respiratory failure requiring intubation who was admitted to [facility] for rehab. On the evening of 04/12/19 the patient developed fever, mild hypotension and concerns for sepsis. Work up was initiated and broad spectrum Abx started. - Patient Problems (1) Lethargy Current Visit: Yes Status: Acute Code(s): R53.83 - OTHER FATIGUE SNOMED Code(s): 074699605 Comment: ? secondary to UTI vs re-instating lyrica, levorphanol. Doses to be reduced by Dr. Castro to reduce the likelihood is secondary to medications. (2) Sepsis Current Visit: Yes Status: Acute Comment: Possibly septic last night secondary to CAUTI. At this time not clear that he needs to be admitted to the medical floor as he is now afebrile and WBC count slightly down on zosyn. If pt develops fever, tachycardia or hypotension, pt to be admitted to inpatient medical team. Additionally if mental status worsens, admit to medical floor. (3) Catheter-associated urinary tract infection Current Visit: Yes Status: Acute Code(s): T83.511A - I/I REACT D/T INDWELLING URETHRAL CATHETER, INIT; N39.0 - URINARY TRACT INFECTION, SITE NOT SPECIFIED SNOMED Code(s): 040881674 Comment: Urine culture positive for pseudomonas and klebsiella- 75,000-100, 000 CFU. ? pathogens vs colonization. Continue zosyn for now. (4) HTN (hypertension) Current Visit: Yes Status: Chronic Code(s): I10 - ESSENTIAL (PRIMARY) HYPERTENSION SNOMED Code(s): 79493523 Comment: Pt diagnosed with PRES during hospitalization in [place]. BP has been stable. Continue amlodipine, coreg, cardura, isordil and hydralazine. (5) Seizures Current Visit: Yes Status: Acute Code(s): R56.9 - UNSPECIFIED CONVULSIONS SNOMED Code(s): 29872301 Comment: Pt diganosed with seizures during admission in [place]-? secondary to linezolid. Tapering off antiepileptics. Pt with shaking of left arm during my evaluation, per pt's there has also been shaking of R arm intermittently. Continue to monitor. May need neuro evaluation if any concerns for seizure. (6) CKD (chronic kidney disease), stage III Current Visit: Yes Status: Chronic Priority: High Code(s): N18.3 - CHRONIC KIDNEY DISEASE, STAGE 3 (MODERATE) SNOMED Code(s): 753266184 Comment: Baseline creatinine difficult to determine but likely around 1.5. Now elevated (likely secondary to severe acute illness over last 2 months) but very slowly trending down. K elevated but stable. Continue to follow labs closely- avoid nephrotoxic agents and renally dose meds. (7) Anemia Current Visit: Yes Status: Chronic Code(s): D64.9 - ANEMIA, UNSPECIFIED SNOMED Code(s): 969325492 Comment: H/H much lower than in 01/2019 but stable over the last 3 days. Likely anemia related to his severe acute illness over the last 2 months. (8) Pressure ulcer of sacral region, stage 3 Current Visit: Yes Status: Acute Code(s): L89.153 - PRESSURE ULCER OF [place]CR[place] REGION, STAGE 3 SNOMED Code(s): 243419325 Comment: Pressure ulcer over ischium. Reportedly, last night pressure ulcer looked clean and not infected. He was initially hospitalized in [place] secondary to infected decubitus. (9) Chronic back pain Current Visit: Yes Status: Chronic Code(s): M54.9 - DORSALGIA, UNSPECIFIED; G89.29 - OTHER CHRONIC PAIN SNOMED Code(s): 726002496 Comment: Secondary to ependymoma. No pain at this time. Continue reduced dose lyrica and levorphanol. (10) CAD (coronary artery disease) Current Visit: Yes Status: Chronic Code(s): I25.10 - ATHSCL HEART DISEASE OF [place] CORONARY ARTERY W/O ANG PCTRS SNOMED Code(s): 29160922 Comment: No acute complaints. Continue ASA, coreg and isordil. (11) Paraplegia Current Visit: Yes Status: Chronic Code(s): G82.20 - PARAPLEGIA, UNSPECIFIED SNOMED Code(s): 79672292 Comment: Needs PT to try to get back to previous functional status. (12) DVT prophylaxis Current Visit: Yes Status: Acute Code(s): JPY5185 - SNOMED Code(s): 784919545 Comment: none ordered (13) DNR (do not resuscitate) Current Visit: Yes Status: Acute
[2019-04-13] MEDS ORDERED: LEVORPHANOL 2 MG PO SCH (21:00)
[2019-04-13] MEDS ORDERED: Pregabalin CAP(*) 50 MG PO SCH (21:00)
[2019-04-14] MEDS ORDERED: Vancomycin Trough Check NOTE FOLLOW UP ONE (11:00)
--- NOTE | 2019-04-18 01:55 | DS ---
DISCHARGE SUMMARY: DATE OF ADMISSION: 04/09/19 DATE OF DISCHARGE: 04/13/19 DISCHARGE DIAGNOSES: 1. 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 2. Probable sepsis. 3. Posterior reversible encephalopathy syndrome. 4. Hypotension. 5. Chronic pain secondary to his ependymoma. 6. Acute on chronic renal failure. 7. Sleep apnea. 8. Coronary artery disease. 9. History of severe sepsis. 10. Seizure presumed to be from Zyvox. HISTORY OF ILLNESS AND HOSPITAL COURSE: For complete history of the events leading up to his rehab stay, please see the history and physical dictated by me on 04/09/19. While on the rehab unit, the patient initially seemed to be stable. The skin over his buttocks was tenuous and he developed other small areas of erythema. It was unclear if this was from the rehab process or from the transportation from [facility]. He did have a 4-cm left ischial ulcer noted as well as ulcers over his heel on the right and left side as well as the right lateral ankle. The patient did have a wound consult and appropriate wound care was done for the affected areas. On 04/12/19, the patient had developed an altered mental status with the fever to 102 and low blood pressures. A CAT team was called. Chest x-ray was done which was largely unrevealing. Urinalysis and culture were drawn and blood cultures were drawn. The patient was started on antibiotics and given 2 fluid boluses. He was put on IV vancomycin and IV Zosyn. By 04/13/19, the patient was initially doing better but his temperature stevo again to 100.8. His white blood cell count was unchanged from 04/12/19. When his temperature came up Sunday evening, even with the patient on IV Zosyn, it was decided to move the patient to the acute medical service. DISCHARGE DIET: Regular. DISCHARGE MEDICATIONS: Included: 1. Zosyn intravenously per the pharmacy dosing. 2. Colace 100 mg twice daily. 3. Santyl topically to his ischial pressure ulcer. 4. Coreg 25 mg twice daily. 5. Aspirin 81 mg daily. 6. Norvasc 10 mg daily. 7. Cardura 2 mg at bedtime. 8. Hydralazine 25 mg every 8 hours. 9. Isordil 10 mg 3 times a day. 10. Keppra 500 mg twice daily. 11. Levorphanol 1 mg every 12 hours. 12. Protonix 40 mg twice daily. 13. Lyrica 50 mg 3 times a day. His levorphanol and Lyrica doses were cut back in attempt to improve his mental status. DISPOSITION: The patient was admitted to [facility]'s acute hospital. CONDITION AT DISCHARGE: Guarded. [id number]/[facility] #: [id number] MTDD
== END 2019-04-13 22:20 | disposition short-term general hospital (02) | DRG 52 ==
LOC: PMRU 08:45 → UNDOADMIN 12:36 → PMRU 04-13 21:20 → SSU 04-13 21:20
PROVIDERS: ADMIT Physical Medicine & Rehabilitation; ATTEND Physical Medicine & Rehabilitation
PROC: F07Z4ZZ Wheelchair Mobility Treatment (ICD-10-PCS; principal; 2019-04-12)
PROC: F07Z8ZZ Transfer Training Treatment (ICD-10-PCS; 2019-04-12)
PROC: F08Z1ZZ Dressing Techniques Treatment (ICD-10-PCS; 2019-04-12)
PROC: F08Z0ZZ Bathing/Showering Techniques Treatment (ICD-10-PCS; 2019-04-12)
PROC: F08Z3ZZ Feeding/Eating Treatment (ICD-10-PCS; 2019-04-12)
DX: G82.20 Paraplegia, unspecified (principal); L89.613 Pressure ulcer of right heel, stage 3; T83.511A Infection and inflammatory reaction due to indwelling urethral catheter, initial encounter; N39.0 Urinary tract infection, site not specified; L89.223 Pressure ulcer of left hip, stage 3; I67.83 Posterior reversible encephalopathy syndrome; A41.9 Sepsis, unspecified organism; C41.2 Malignant neoplasm of vertebral column; I47.2 Ventricular tachycardia; N17.9 Acute kidney failure, unspecified; Z66 Do not resuscitate; L89.210 Pressure ulcer of right hip, unstageable; L89.152 Pressure ulcer of sacral region, stage 2; L89.620 Pressure ulcer of left heel, unstageable; L89.519 Pressure ulcer of right ankle, unspecified stage; N18.3 Chronic kidney disease, stage 3 (moderate); G47.30 Sleep apnea, unspecified; I12.9 Hypertensive chronic kidney disease with stage 1 through stage 4 chronic kidney disease, or unspecified chronic kidney disease; N31.9 Neuromuscular dysfunction of bladder, unspecified; G40.909 Epilepsy, unspecified, not intractable, without status epilepticus; I25.10 Atherosclerotic heart disease of native coronary artery without angina pectoris; D64.89 Other specified anemias; M54.9 Dorsalgia, unspecified; G58.8 Other specified mononeuropathies; B96.1 Klebsiella pneumoniae [K. pneumoniae] as the cause of diseases classified elsewhere; S37.39XD Other injury of urethra, subsequent encounter; Z79.82 Long term (current) use of aspirin; Z79.899 Other long term (current) drug therapy; Z88.8 Allergy status to other drugs, medicaments and biological substances; Z99.3 Dependence on wheelchair; Z99.89 Dependence on other enabling machines and devices; Z93.3 Colostomy status; Q54.8 Other hypospadias
CPT/HCPCS: 36415; 71045; 80053; 81003; 81015; 83605; 85025; 87040; 87077; 87086; 87186; 90686; A9270-GY; J2543; J3370

== ENCOUNTER 2019-04-13 21:24 | Inpatient (IN) | payer MEDICARE ==
[2019-04-13] MEDS ORDERED: Magnesium Hydroxide LIQ* 30 ML UDC PO PRN (21:29)
[2019-04-13] MEDS ORDERED: Docusate CAP* 100 MG PO PRN (21:44)
[2019-04-13] MEDS ORDERED: Senna TAB 8.6 mg* TAB PO PRN (21:57)
[2019-04-13] MEDS ORDERED: Zosyn per Pharmacy* NOTE FOLLOW UP SCH (22:00)
[2019-04-13] MEDS ORDERED: Piperacillin/Tazobac ADVAN(*) 3.375 GM in NS 0.9% 100 ML* 100 ML IVPB ONE (23:30)
[2019-04-14] MEDS ORDERED: LEVORPHANOL 2 MG PO SCH (00:45)
[2019-04-14] MEDS: Doxazosin TAB* 2 MG PO SCH ×2 (00:47→20:57)
[2019-04-14] MEDS: Carvedilol TAB* 25 MG PO SCH ×2 (00:47→09:08)
[2019-04-14] MEDS: Pantoprazole TAB * 40 MG TAB PO SCH ×3 (00:48→20:59)
[2019-04-14] MEDS: hydrALAZINE TAB* 25 MG PO SCH ×3 (00:48→14:19)
[2019-04-14] MEDS: Pregabalin CAP(*) 50 MG PO SCH ×4 (00:49→20:58)
[2019-04-14] MEDS: Heparin VIAL(*) 5000 UNITS/ML VIAL (FIVE THOUSAND) SUBCUT SCH ×4 (00:49→22:19)
[2019-04-14] MEDS: NS 0.9% 1000 ML** 1,000 ML IV SCH ×2 (00:57→18:25)
--- NOTE | 2019-04-14 01:26 | HP ---
CC: Dr. Yassine Castro, [facility]; Dr. Molly Griffiths * HISTORY AND PHYSICAL: DATE OF ADMISSION: 04/13/19 ATTENDING PHYSICIAN: Dr. Ashley Harper.* (DICTATED BY DIA BESS NP) PRIMARY CARE PROVIDER: Dr. Molly Griffiths. CHIEF COMPLAINT: Hypotension and fever while doing rehab in [facility]. HISTORY OF PRESENT ILLNESS: Mr. 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 He also has seizures, chronic kidney disease, anemia, chronic pain, and a recent diagnosis of sepsis and PRES out at [facility]. The patient was at [facility] for approximately 42 days, being treated for sepsis and had a very complicated course and then was transferred to [facility] for rehab. Please see notes from Dr. Castro for his [facility] course, but in short, he had been in [facility] from 04/09/19 up until today; however, on 04/11/19 in the evening, there was an overhead CAT call for the patient having fever, rigors, and an increased temperature. In that occasion, the patient also had some hypotension. He received a fluid bolus of 1 L of normal saline and some Tylenol. He was pancultured, lactic acid was drawn, which was not elevated. The patient responded favorably to food bolus. His temperature came down very quickly. His blood pressure came up very quickly and he overall improved in a very short period of time. We continued to follow Mr. Merino while he was in [facility]; however , over the next 24 hours, he still began to have increasing fevers and then ultimately his urine did show klebsiella and also pseudomonas. 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 He does have a chronic indwelling Fischer catheter secondary to his paraplegia. Given the constellation of symptoms, his fever and urinary tract infection, at this time, after much discussion with Dr. Castro, we felt it would be better for the patient to reside in the inpatient medical unit rather in [facility] as this current urinary tract infection and fever are inhibiting the patient's ability to participate in the vigorous physical rehab portion of his program in [facility]. He was seen earlier in the day by Dr. Harper. He was quite sleepy this morning, but he is otherwise mentating appropriately and in no acute distress. Plan is for the patient to be transferred to [address] [place] [address] for IV antibiotics, fluids, and continued medical management. PAST MEDICAL HISTORY: As noted above is complex and includes: Ependymoma; lower extremity paralysis; neurogenic bladder with chronic Fischer; PRES; seizure disorder; obstructive sleep apnea; chronic non-healing sacral wound, status post recent debridement; hypertension secondary to PRES; chronic kidney disease , stage 3; chronic anemia; chronic pain syndrome; coronary artery disease. HOME MEDICATIONS: Include: 1. Tylenol 650 mg p.o. q.6 hours as needed. 2. Amlodipine 10 mg p.o. daily. 3. Aspirin 81 mg daily. 4. Carvedilol 25 mg p.o. b.i.d. 5. Vitamin D3 1000 units p.o. daily. 6. Collagenase 250 units to his wound topical daily. 7. Cranberry extract 1 tablet daily. 8. Vitamin B12 1000 mcg daily. 9. Docusate 100 mg p.o. b.i.d. 10. Doxazosin 2 mg p.o. at bedtime. 11. Ferrous gluconate 324 mg p.o. daily. 12. Folic acid 0.5 mg p.o. daily. 13. Furosemide 40 mg p.o. daily. 14. Isosorbide dinitrate 10 mg p.o. 3 times a day. 15. Levorphanol 1 mg p.o. q.12 hours, titrated down from 2 mg p.o. q.8 hours. 16. Omeprazole 40 mg p.o. daily. 17. Pantoprazole 40 mg p.o. b.i.d. 18. Lyrica 200 mg p.o. 3 times daily. 19. Valsartan/hydrochlorothiazide 1 tab p.o. daily. 20. Amlodipine 10 mg p.o. daily. 21. Keppra 500 mg p.o. b.i.d. ALLERGIES: Include STATINS. SOCIAL HISTORY: The patient does live with his , who is his healthcare proxy. She is currently at the bedside. Denies any alcohol use. He does not use tobacco products and there is no illicit drug use. REVIEW OF SYSTEMS: The patient denies any shortness of breath or chest pain. He does endorse some flushed fever and chills. He is endorsing some fatigue. No nausea, no vomiting. He does have chronic generalized pain, which is currently well controlled and no further constitutional complaints. PHYSICAL EXAMINATION GENERAL: He is an older gentleman in no acute distress. VITAL SIGNS: Blood pressure 140/52, temperature 100.8, heart rate 92, O2 saturation 96% on 2 L nasal cannula with respiratory rate of 18. HEENT: The patient is atraumatic, normocephalic. PERRLA. Nonicteric sclerae. Oral mucosa is moist. Tongue is midline. NECK: Supple, nontender. No JVD noted. No carotid bruits auscultated. LUNGS: Clear bilaterally to auscultation with no wheezing, rhonchi, or rales. CARDIOVASCULAR: Rate and rhythm are regular. No murmurs, gallops, or rubs noted. Positive S1, S2. ABDOMEN: Soft, nontender, nondistended. Positive bowel sounds in all 4 quadrants. He does have a colostomy, which shows medium brown stool. There is no clubbing and no cyanosis. NEUROLOGIC: He does appear fatigued and sleepy, but he is arousable, alert, and oriented x3 and appropriate. SKIN: He does have chronic wounds, which are currently dressed, I did not take down the dressings on the sacral area. DIAGNOSTIC STUDIES/LAB DATA: There are no current labs at the time of transfer , but he did have laboratories drawn in [facility] showed a leukocytosis with white count of 12.9, hemoglobin of 7.7, hematocrit of 39%, platelets of 241. Sodium of 138, potassium 5.4, CO2 24, chloride 108, BUN 84, and creatinine of 2.27, which is currently the patient's baseline. Urinalysis did not appear to be acutely infected when it was drawn on 04/12/19, with 3+ leukocyte esterase, 3+ wbc's, negative for nitrites. Microbiology, however, is showing pseudomonas and klebsiella with colony counts of 75,000 to 100,000. Chest x-ray dated 04/12/19 shows no evidence for any active cardiopulmonary disease. IMPRESSION: Mr. Merino is a gentleman with a very complex medical history, who is residing in [facility] for physical rehab and then presented with lethargy and fever, now being transferred to Inpatient Medical for symptomatic urinary tract infection and possible sepsis. DIAGNOSES: 1. Lethargy. This is difficult to say whether his lethargy is secondary to recurrent urinary tract infection or restarting his pain medications. The patient had been off his pain meds for significant period of time when he was in [place]. His medications have been titrated down by Dr. Castro. We will continue to monitor his mental status. His levorphanol and Lyrica had been titrated down and this will continue to be monitored closely. 2. Systemic inflammatory response syndrome versus sepsis. The patient is not having hypotensive right now. He is still mounting fevers, however. He has been pancultured. Blood cultures are negative at this time. He did receive vancomycin and Zosyn. At this time, we will keep him on Zosyn. This will cover him for klebsiella and pseudomonas and continue to monitor his susceptibilities in his urine. The urine is likely a catheter-associated urinary tract infection. His catheter is set to be changed on Sunday of this week. It is unclear whether this is colonization versus active infection; however, this does seem to be the most likely source given that his chest x-ray is negative and his blood cultures are also negative, also the wound bed on his sacral wound does appear to be cleaned. 3. 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 The patient was on significantly larger doses of blood pressure meds before being admitted to [facility] now coming to the inpatient side. These have been titrated somewhat, we will continue to monitor the patient's blood pressure and titrate medications down or up as needed. 4. Seizure disorder. He is currently on Keppra, supposedly he has had a seizure after taking an antibiotic that he had a reaction to. He is on 500 Keppra 2 times a day. This will be continued. If he has any further focal neuro deficits, we would may consider having Neurology see the patient. He did have some shaking in his arm, today of his left arm, yesterday was his right arm. It is unclear whether this is representing any new seizure activity, again this will be monitored closely. 5. History of chronic kidney disease, stage 3. His renal function appears to be at his baseline. 6. Anemia, which is secondary to chronic disease. We will continue to monitor his renal function. 7. Chronic pressure wounds, stage 3. The patient was debrided at [facility]. Wound bed does appear to be cleaned. He was seen by Cony Medrano, who had made wound care recommendations. We will continue his Santyl and daily dressing changes. 8. Chronic pain. Pain medications and titration as noted above. 9. History of coronary artery disease. He will be continued on aspirin, isosorbide dinitrate, and his Coreg. 10. Paraplegia secondary to spinal tumor. I have placed consultation for Physical Therapy when the patient is feeling a bit stronger from this infection. He can work with PT. 11. DVT prophylaxis will be with heparin subcu q.8 hours. 12. Diet. Regular diet as tolerated. 13. Activity. Out of bed to chair as tolerated with PT evaluation. The rest of the patient's course will be determined by further diagnostics, laboratories, and any other input from other providers as warranted during this admission. This plan of care has been discussed with Dr. Harper, the attending on this admission, she is in agreement with plan of care. TIME SPENT: Seventy minutes on admission and transfer planning. DIA BESS NP [id number]/[facility] #: [id number] VALERI
[2019-04-14] MEDS: ZOSYN 3.375 GM Q8H per EXTENDED INFUSION IVPB SCH ×6 (05:51→20:54)
[2019-04-14 08:18] LABS: BUN/Creatinine Ratio 38.6 (8-20); Calcium 10.5 mg/dL (8.6-10.3); EGFR African American 38.3 (>60); EGFR Non-African American 31.6 (>60)
[2019-04-14 08:19] LABS: Potassium 5.5 mmol/L (3.5-5.0)
[2019-04-14 08:34] LABS: Hematocrit 23 % (42-52); Hemoglobin 7.4 g/dL (14.0-18.0); Mean Corpuscular HGB Conc 33 g/dL (31-36); Mean Corpuscular Hemoglobin 29 pg (27-31); Mean Corpuscular Volume 88 fL (80-94); Mean Platelet Volume 8.2 fL (7.4-10.4); Platelet Count 236 10^3/uL (150-450); Red Blood Count 2.56 10^6 /uL (4.18-5.48); Red Cell Distribution Width 23 % (10-15); White Blood Count 11.8 10^3/uL (3.5-10.8)
[2019-04-14 09:01] LABS: ABS Basophils 0.1 10^3/ul (0-0.2); ABS Eosinophils 0.4 10^3/ul (0-0.6); ABS Lymphocytes 1.3 10^3/ul (1.0-4.8); ABS Monocytes 1.5 10^3/ul (0-0.8); ABS Neutrophils 8.6 10^3/ul (1.5-7.7); Eosinophil % 3.1 %; Nucleated Red Blood Cells % 0.1
[2019-04-14] MEDS: LEVORPHANOL 2 MG PO SCH ×2 (09:02→22:19)
[2019-04-14] MEDS: amLODIPine TAB* 5 MG PO SCH (09:08)
[2019-04-14] MEDS: Aspirin 81 mg CHEW TAB* 81 MG TAB.CHEW PO SCH (09:08)
[2019-04-14] MEDS: Cyanocobalamin TAB* 500 MCG PO SCH (09:08)
[2019-04-14] MEDS: Cholecalciferol TAB* 1000 UNITS PO SCH (09:08)
[2019-04-14] MEDS: levETIRAcetam TAB* 500 MG PO SCH ×2 (09:08→20:57)
[2019-04-14] MEDS: Isosorbide Dinitrate TAB* 10 MG PO SCH ×3 (09:11→20:59)
[2019-04-14] MEDS: Collagenase 250 UNITS/GM OINT* 1 APPLIC OINT TOPICAL SCH (10:30)
--- NOTE | 2019-04-14 14:00 | CONS ---
CONSULTATION REPORT: DATE OF CONSULT: 04/14/19 REQUESTING PHYSICIAN: Dr. Tolentino. CONSULTING SERVICE: Infectious Disease. REASON FOR CONSULT: Catheter-associated urinary tract infection. IMPRESSION: 1. Chronic Fischer catheter in the setting of paraplegia, developed fever and leukocytosis over the weekend. The urine culture is growing greater than 100, 000 colonies of Pseudomonas aeruginosa and greater than 75,000 colonies of Klebsiella pneumoniae. He has had no fever since being treated with Zosyn. His white count was 13,000 on 04/12/19, was down to 11,000 today. His thinks he has been more comfortable, though he is still sleepy. 2. Paraplegia with neurogenic bladder and chronic Fischer catheter. 3. Left ischial decubitus ulcer, chronic, treated with debridement and long course of IV antibiotics at [facility] over the last couple of months. 4. History of seizure while on linezolid at [facility]. 5. Chronic kidney disease, stage 3. 6. Recent posterior reversible encephalopathy syndrome. RECOMMENDATIONS: 1. Continue Zosyn, as his white count is improving and the fever seemed to have resolved, we will await sensitivity data. 2. Continue wound care for his decubitus ulceration, which has been improving. HISTORY OF PRESENT ILLNESS: This is a 73-year-old man with paraplegia, chronic decubitus ulceration of the left ischium for which he has been followed at [facility] for about 7 weeks where he had debridement of the ulcer and was on linezolid, had a seizure, was intubated for about a week, had a prolonged convalescence there. He was transferred back here to the rehab unit and then over the weekend developed fever. His labs were checked and they found he had a leukocytosis as noted above. Urine cultures were taken and he was started on IV antibiotics, which he has tolerated well. His fevers have abated, his white count is coming down. His says he is no longer flushed and seems more comfortable. He cannot provide much of the details, which we obtained instead from discussion with his , review of the medical records and discussion with Dr. Tolentino. He has not had any dental issues; any sinus pain or pressure; any chest pain, cough, or shortness of breath. No abdominal pain. No diarrhea through his ostomy. PAST MEDICAL HISTORY: 1. Paraplegia with neurogenic bladder and chronic Fischer catheter. 2. Left ischial ulceration. 3. History of sacral decubitus ulcer, treated with a flap at [facility]. 4. PRES. 5. Seizure while on linezolid. 6. Obstructive sleep apnea. 7. Hypertension. 8. Stage 3 chronic kidney disease. 9. Anemia. 10. Chronic pain. 11. Coronary artery disease. ALLERGIES: STATIN and LINEZOLID. MEDICATIONS: 1. Tylenol. 2. Amlodipine. 3. Aspirin. 4. Coreg. 5. Cholecalciferol. 6. Collagenase topical. 7. Cyanocobalamin. 8. Docusate. 9. Doxazosin. 10. Heparin subcutaneous injection. 11. Hydralazine. 12. Imdur. 13. Keppra. 14. Levorphanol. 15. Magnesium hydroxide. 16. Zosyn 3.375 g IV every 8 hours by extended infusion. 17. Pregabalin. 18. Senna. SOCIAL HISTORY: He lives with his in [place], though in the last couple of months has been at [facility]. He is a nonsmoker. FAMILY HISTORY: No recurrent infections. REVIEW OF SYSTEMS: All negative except as noted above to a 12-point review. PHYSICAL EXAM: Vital Signs: Temperature 37, heart rate 77, respiratory rate 16 , blood pressure 101/35, oxygen saturation 92% on 3 L. In general, he is awake , but drowsy, answers most questions, follows commands, moves both upper extremities. HEENT: There is no conjunctival hemorrhage. Oropharynx without lesions. Neck is supple without mass. Heart is regular rate and rhythm without murmurs, rubs, or gallops. Lungs are clear to auscultation bilaterally. Abdomen is soft, nontender. There are bowel sounds present. There is a left lower quadrant ostomy with air and liquid stool. Skin: There is no rash or splinter hemorrhage. The left ischial bandage is not taken down as it was just placed. Musculoskeletal: There is no spine tenderness to palpation. There are no foot wounds. LABORATORY DATA: White blood cell count 11.8, hemoglobin 7.4, platelets 236. Creatinine is 2.07. Blood cultures are no growth after 24 hours. Please see impression and recommendations outlined above, which I discussed with Dr. Tolentino. Thanks for asking me to see Mr. Merino in consultation. [id number]/[facility] #: [id number] [facility]
--- NOTE | 2019-04-14 14:27 | PN ---
Subjective Date of Service: 04/14/19 Interval History: Tmax 100.8 at 7pm, HR to 115. Both resolved. "had been doing really well" at [facility] with rehab initially per [place]- would be able to sit on side of bed briefly. Prior to admission 8 weeks ago he was able to transfer independently to , cook for himself. having chronic pains in legs. denies chest pain, abdominal pain, chills, subjective fevers. His mentation has waxed and waned since [place] admission but generally improving trajectory per . son also at bedside. Objective Active Medications: Acetaminophen (Tylenol Tab*) 650 mg PO Q6H PRN PRN Reason: MILD PAIN or TEMP > 100.4 Amlodipine Besylate (Norvasc Tab*) 10 mg PO DAILY [facility] Last Admin: 04/14/19 09:08 Dose: 10 mg Aspirin (Aspirin 81 Mg Chew Tab*) 81 mg PO DAILY [facility] Last Admin: 04/14/19 09:08 Dose: 81 mg Carvedilol (Coreg Tab*) 12.5 mg PO BID [facility] Cholecalciferol (Vitamin D Tab*) 1,000 units PO DAILY [facility] Last Admin: 04/14/19 09:08 Dose: 1,000 units Collagenase (Santyl 250 Units/Gm Oint*) 1 applic TOPICAL DAILY [facility] Last Admin: 04/14/19 10:30 Dose: 1 applic Cyanocobalamin (Vitamin B12 Tab*) 1,000 mcg PO DAILY [facility] Last Admin: 04/14/19 09:08 Dose: 1,000 mcg Docusate Sodium (Colace Cap*) 100 mg PO BID PRN PRN Reason: CONSTIPATION Doxazosin Mesylate (Cardura Tab*) 2 mg PO BEDTIME [facility] Last Admin: 04/14/19 00:47 Dose: 2 mg Heparin Sodium (Porcine) (Heparin Vial(*)) 5,000 units SUBCUT Q8HR [facility] Last Admin: 04/14/19 13:35 Dose: 5,000 units Sodium Chloride (Ns 0.9% 1000 Ml) 1,000 mls @ 75 mls/hr IV PER RATE [facility] Last Admin: 04/14/19 00:57 Dose: 75 mls/hr Piperacillin Sod/Tazobactam (Sod 3.375 gm/ Sodium Chloride) 100 mls @ 25 mls/ hr IVPB Q8H [facility] Last Admin: 04/14/19 13:34 Dose: 25 mls/hr Isosorbide Dinitrate (Isordil Tab*) 10 mg PO TID [facility] Last Admin: 04/14/19 13:35 Dose: 10 mg Levetiracetam (Keppra Tab*) 500 mg PO BID [facility] Last Admin: 04/14/19 09:08 Dose: 500 mg Levorphanol Tartrate (Levorphanol 2 Mg (Nf)) 1 mg PO Q12HR [facility] Last Admin: 04/14/19 09:02 Dose: 1 mg Magnesium Hydroxide (Milk Of Magnesia Liq*) 30 ml PO Q6H PRN PRN Reason: CONSTIPATION Pantoprazole Sodium (Protonix Tab*) 40 mg PO BID [facility] Last Admin: 04/14/19 09:08 Dose: 40 mg Pharmacy Consult (Zosyn Per Pharmacy*) 1 note FOLLOW UP .ZOSYN PER PHARMACY [facility] Pregabalin (Lyrica Cap(*)) 50 mg PO TID [facility] Last Admin: 04/14/19 13:35 Dose: 50 mg Senna (Senokot 8.6 Mg Tab*) 2 tab PO BEDTIME PRN PRN Reason: CONSTIPATION Vital Signs - 8 hr 04/14/19 04/14/19 04/14/19 07:35 08:00 09:02 Temperature 97.3 F Pulse Rate 74 Respiratory 18 18 18 Rate Blood Pressure 121/49 (mmHg) O2 Sat by Pulse 95 Oximetry 04/14/19 04/14/19 04/14/19 11:04 11:15 13:35 Temperature 98.4 F Pulse Rate 77 Respiratory 16 22 20 Rate Blood Pressure 101/35 (mmHg) O2 Sat by Pulse 92 Oximetry Oxygen Devices in Use Now: Nasal Cannula Appearance: NAD, fatigued appearing. chronically ill. Eyes: No Scleral Icterus, PERRLA Ears/Nose/Mouth/Throat: NL Teeth, Lips, Gums Neck: NL Appearance and Movements; NL JVP Respiratory: Symmetrical Chest Expansion and Respiratory Effort, Clear to Auscultation Cardiovascular: NL Sounds; No Murmurs; No JVD, RRR, No Edema Abdominal: NL Sounds; No Tenderness; No Distention, - - opaque colostomy Extremities: No Edema Skin: No Rash or Ulcers, - - reported improving pressure ulcer on left ischium Neurological: - - Thinks at [facility] [place][Note 2], oriented to situation. paraplegia Lines/Tubes/Other Access: Clean, Dry and Intact Fishcer Nutrition: Taking PO's - Nutrition: Malnutrition Diagnosis/Plan Malnutrition Assessment by Registered Dietitian: Malnutrition Assessment Clinical Characteristics Acute,Severe Malnutrition Assessment: Moderate muscle/fat loss Criteria Severe acute weight loss (15.9% over 1 1/2 months) Severe deficit in energy intake (<50% - essentially just 1 to 2 servings Boost per day) Malnutrition Assessment: Ensure enlive 3 times daily (350 kcals, 20 gms Interventions protein each) [place] diet (regular at present) Selection of menu to maximize tolerance/ acceptance Malnutrition Assessment: Goals 1. Improved oral intake to >75% to support wound healing, maintenance of lean body mass, adequate hydration w/o contributing to undesirable weight gain. 2. Improvement of K levels to WNL. 3. Evidence of wound healing and no new areas of skin breakdown. Result Diagrams: 04/14/19 07:26 04/14/19 07:26 Additional Lab and Data: Laboratory Results - last 24 hr 04/14/19 04/14/19 04/14/19 07:26 07:26 16:20 WBC 11.8 H RBC 2.56 L Hgb 7.4 L Hct 23 L MCV 88 MCH 29 MCHC 33 RDW 23 H Plt Count 236 MPV 8.2 Neut % (Auto) 72.6 Lymph % (Auto) 11.0 [place] % (Auto) 12.4 Eos % (Auto) 3.1 Baso % (Auto) 0.9 Absolute Neuts (auto) 8.6 H Absolute Lymphs (auto) 1.3 Absolute Monos (auto) 1.5 H Absolute Eos (auto) 0.4 Absolute Basos (auto) 0.1 Absolute Nucleated RBC 0.0 Nucleated RBC % 0.1 Hem Pathologist Commnt Sodium 140 Potassium 5.5 H Chloride 111 Carbon Dioxide 21 L Anion Gap 8 BUN 80 H Creatinine 2.07 H Est GFR ( Amer) 38.3 Est GFR (Non-Af Amer) 31.6 BUN/Creatinine Ratio 38.6 H Glucose 102 H Calcium 10.5 H C-Reactive Protein 226.12 H B-Natriuretic Peptide Urine Color Yellow Urine Appearance Cloudy Urine pH 5.0 Ur Specific [place] 1.016 Urine Protein Negative Urine Ketones Negative Urine Blood 2+ A Urine Nitrate Negative Urine Bilirubin Negative Urine Urobilinogen Negative Ur Leukocyte Esterase 3+ A Urine WBC (Auto) 3+(>20/hpf) A Urine RBC (Auto) 3+(>10/hpf) A Urine Bacteria 1+ A Urine Glucose Negative 04/14/19 16:24 WBC RBC Hgb Hct MCV MCH MCHC RDW Plt Count MPV Neut % (Auto) Lymph % (Auto) [place] % (Auto) Eos % (Auto) Baso % (Auto) Absolute Neuts (auto) Absolute Lymphs (auto) Absolute Monos (auto) Absolute Eos (auto) Absolute Basos (auto) Absolute Nucleated RBC Nucleated RBC % Hem Pathologist Commnt Sodium Potassium Chloride Carbon Dioxide Anion Gap BUN Creatinine Est GFR ( Amer) Est GFR (Non-Af Amer) BUN/Creatinine Ratio Glucose Calcium C-Reactive Protein B-Natriuretic Peptide 258 H Urine Color Urine Appearance Urine pH Ur Specific [place] Urine Protein Urine Ketones Urine Blood Urine Nitrate Urine Bilirubin Urine Urobilinogen Ur Leukocyte Esterase Urine WBC (Auto) Urine RBC (Auto) Urine Bacteria Urine Glucose Assess/Plan/Problems-Billing Assessment: 73 yo male [facility] 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 Transferred from [facility] 04/13 for sepsis 2/2 klebsieall/PSDA CAUTI. - Patient Problems (1) Sepsis Current Visit: No Status: Acute Comment: Likely 2/2 Klebsiella/PSDA CAUTI. Appreciate ID recs. Continue zosyn for now and await sensitivites. Improving. ( SIRS criteria: Fever, tachycardia, leukocytosis) (2) Catheter-associated urinary tract infection Current Visit: No Status: Acute Code(s): T83.511A - I/I REACT D/T INDWELLING URETHRAL CATHETER, INIT; N39.0 - URINARY TRACT INFECTION, SITE NOT SPECIFIED SNOMED Code(s): 189654480 Comment: Urine culture positive for pseudomonas and klebsiella- 75,000-100, 000 CFU. Continue zosyn for now. Catheter was changed almost 1 month ago and will change today. (3) Chronic pain Current Visit: No Status: Acute Code(s): G89.29 - OTHER CHRONIC PAIN SNOMED Code(s): 29356584 Comment: - Continue levorphanol (4) Lethargy Current Visit: No Status: Acute Code(s): R53.83 - OTHER FATIGUE SNOMED Code(s): 554441162 Comment: ? secondary to UTI vs re-instating lyrica, levorphanol. Doses were reduced by Dr. Castro to reduce the likelihood is secondary to medications. (5) Pressure ulcer of sacral region, stage 3 Current Visit: No Status: Acute Code(s): L89.153 - PRESSURE ULCER OF SACRAL REGION, STAGE 3 SNOMED Code(s): 414023985 Comment: Pressure ulcer over ischium. Overall improving per report. He was initially hospitalized in [place] secondary to infected decubitus. (6) Seizures Current Visit: No Status: Acute Code(s): R56.9 - UNSPECIFIED CONVULSIONS SNOMED Code(s): 12511737 Comment: Pt diganosed with seizures during admission in [place]-? secondary to linezolid. Tapering off antiepileptics. no observed arm shaking today. Continue to monitor. May need neuro evaluation if any concerns for seizure. (7) Anemia Current Visit: No Status: Chronic Code(s): D64.9 - ANEMIA, UNSPECIFIED SNOMED Code(s): 179631603 Comment: H/H much lower than in 01/2019 but stable over the last 3 days. Likely anemia related to his severe acute illness over the last 2 months. Add iron panel/ferritin as RDW quite elevated. (8) HTN (hypertension) Current Visit: No Status: Chronic Code(s): I10 - ESSENTIAL (PRIMARY) HYPERTENSION SNOMED Code(s): 57502440 Comment: Pt diagnosed with PRES during hospitalization in [place]. BP has been stable to hypotensive today in setting of sepsis. Continue amlodipine cut coreg to 12.5mg BID continue cardura continue isordil stop hydralazine. Status and Disposition: medicine inpatient. Likely dispo back to PMRU once improved enough to resume rehabilitation.
[2019-04-14 14:42] LABS: C Reactive Protein 226.12 mg/L (<8.01)
[2019-04-14] MEDS: Carvedilol TAB* 6.25 MG PO SCH (20:57)
[2019-04-14 22:05] LABS: Urine Appearance Cloudy; Urine Bacteria 1+ (Absent); Urine Bilirubin Negative (Negative); Urine Blood 2+ (Negative); Urine Color Yellow; Urine Glucose Negative (Negative); Urine Ketones Negative (Negative); Urine Nitrite Negative (Negative); Urine Protein Negative (Negative); Urine Red Blood Cell 3+(>10/hpf) (Absent); Urine Specific Gravity 1.016 (1.010-1.030); Urine Urobilinogen Negative (Negative); Urine White Blood Cell 3+(>20/hpf) (Absent)
[2019-04-15] MEDS: ZOSYN 3.375 GM Q8H per EXTENDED INFUSION IVPB SCH ×6 (05:07→23:22)
[2019-04-15] MEDS: Heparin VIAL(*) 5000 UNITS/ML VIAL (FIVE THOUSAND) SUBCUT SCH ×3 (05:55→23:11)
[2019-04-15 06:51] LABS: ABS Basophils 0.1 10^3/ul (0-0.2); ABS Eosinophils 0.2 10^3/ul (0-0.6); ABS Lymphocytes 1.7 10^3/ul (1.0-4.8); ABS Monocytes 1.3 10^3/ul (0-0.8); ABS Neutrophils 7.6 10^3/ul (1.5-7.7); Eosinophil % 1.8 %; Hematocrit 21 % (42-52); Hemoglobin 7.2 g/dL (14.0-18.0); Lymphocyte % 15.3 %; Mean Corpuscular HGB Conc 34 g/dL (31-36); Mean Corpuscular Hemoglobin 29 pg (27-31); Mean Corpuscular Volume 85 fL (80-94); Mean Platelet Volume 7.6 fL (7.4-10.4); Platelet Count 231 10^3/uL (150-450); Red Cell Distribution Width 22 % (10-15); White Blood Count 10.8 10^3/uL (3.5-10.8)
[2019-04-15 07:01] LABS: Anion Gap 6 mmol/L (2-11); CO2 Carbon Dioxide 23 mmol/L (22-32); Calcium 10.4 mg/dL (8.6-10.3); Chloride 113 mmol/L (101-111); Potassium 5.6 mmol/L (3.5-5.0); Sodium 142 mmol/L (135-145)
[2019-04-15 07:06] LABS: BUN/Creatinine Ratio 38.5 (8-20); Blood Urea Nitrogen 70 mg/dL (6-24); EGFR African American 44.4 (>60); EGFR Non-African American 36.7 (>60); Glucose 108 mg/dL (70-100)
[2019-04-15 07:13] LABS: % Iron Saturation 15 % (15-55); Iron 24 ug/dL (50-212); Total Iron Binding Capacity 162 mcg/dL (250-450); Transferrin 116 mg/dL (203-362)
[2019-04-15 07:42] LABS: Ferritin 507.6 ng/mL (24-336)
[2019-04-15] MEDS: Pregabalin CAP(*) 50 MG PO SCH ×3 (08:18→23:09)
[2019-04-15] MEDS: Cholecalciferol TAB* 1000 UNITS PO SCH (08:18)
[2019-04-15] MEDS: Aspirin 81 mg CHEW TAB* 81 MG TAB.CHEW PO SCH (08:18)
[2019-04-15] MEDS: Pantoprazole TAB * 40 MG TAB PO SCH ×2 (08:18→23:06)
[2019-04-15] MEDS: LEVORPHANOL 2 MG PO SCH ×2 (08:18→23:05)
[2019-04-15] MEDS: Isosorbide Dinitrate TAB* 10 MG PO SCH ×3 (08:18→23:07)
[2019-04-15] MEDS: levETIRAcetam TAB* 500 MG PO SCH ×2 (08:19→23:08)
[2019-04-15] MEDS: Carvedilol TAB* 6.25 MG PO SCH ×2 (08:19→23:10)
[2019-04-15] MEDS: Cyanocobalamin TAB* 500 MCG PO SCH (08:19)
[2019-04-15] MEDS: amLODIPine TAB* 5 MG PO SCH (08:19)
[2019-04-15] MEDS ORDERED: Patiromer POWDER* 8.4 GM PAK PO SCH (09:00)
[2019-04-15] MEDS: Collagenase 250 UNITS/GM OINT* 1 APPLIC OINT TOPICAL SCH (13:00)
--- NOTE | 2019-04-15 17:35 | PN ---
Subjective Date of Service: 04/15/19 Interval History: Pt is very somnolent during my evaluation. See with by the bedside. As per , he ate a good breakfast and lunch, but still low PO fluids intake Objective Active Medications: Acetaminophen (Tylenol Tab*) 650 mg PO Q6H PRN PRN Reason: MILD PAIN or TEMP > 100.4 Amlodipine Besylate (Norvasc Tab*) 10 mg PO DAILY [facility] Last Admin: 04/15/19 08:19 Dose: 10 mg Aspirin (Aspirin 81 Mg Chew Tab*) 81 mg PO DAILY [facility] Last Admin: 04/15/19 08:18 Dose: 81 mg Carvedilol (Coreg Tab*) 12.5 mg PO BID [facility] Last Admin: 04/15/19 08:19 Dose: 12.5 mg Cholecalciferol (Vitamin D Tab*) 1,000 units PO DAILY [facility] Last Admin: 04/15/19 08:18 Dose: 1,000 units Collagenase (Santyl 250 Units/Gm Oint*) 1 applic TOPICAL DAILY [facility] Last Admin: 04/15/19 13:00 Dose: 1 applic Cyanocobalamin (Vitamin B12 Tab*) 1,000 mcg PO DAILY [facility] Last Admin: 04/15/19 08:19 Dose: 1,000 mcg Docusate Sodium (Colace Cap*) 100 mg PO BID PRN PRN Reason: CONSTIPATION Doxazosin Mesylate (Cardura Tab*) 2 mg PO BEDTIME [facility] Last Admin: 04/14/19 20:57 Dose: 2 mg Heparin Sodium (Porcine) (Heparin Vial(*)) 5,000 units SUBCUT Q8HR [facility] Last Admin: 04/15/19 13:34 Dose: 5,000 units Piperacillin Sod/Tazobactam (Sod 3.375 gm/ Sodium Chloride) 100 mls @ 25 mls/ hr IVPB Q8H [facility] Last Admin: 04/15/19 13:33 Dose: 25 mls/hr Isosorbide Dinitrate (Isordil Tab*) 10 mg PO TID [facility] Last Admin: 04/15/19 13:34 Dose: 10 mg Levetiracetam (Keppra Tab*) 500 mg PO BID [facility] Last Admin: 04/15/19 08:19 Dose: 500 mg Levorphanol Tartrate (Levorphanol 2 Mg (Nf)) 1 mg PO Q12HR [facility] Last Admin: 04/15/19 08:18 Dose: 1 mg Magnesium Hydroxide (Milk Of Magnesia Liq*) 30 ml PO Q6H PRN PRN Reason: CONSTIPATION Pantoprazole Sodium (Protonix Tab*) 40 mg PO BID [facility] Last Admin: 04/15/19 08:18 Dose: 40 mg Patiromer (Veltassa Powder*) 8.4 gm PO DAILY [facility] Stop: 04/15/19 23:59 Last Admin: 04/15/19 10:38 Dose: 8.4 gm Pharmacy Consult (Zosyn Per Pharmacy*) 1 note FOLLOW UP .ZOSYN PER PHARMACY [facility] Pregabalin (Lyrica Cap(*)) 50 mg PO TID [facility] Last Admin: 04/15/19 13:33 Dose: 50 mg Senna (Senokot 8.6 Mg Tab*) 2 tab PO BEDTIME PRN PRN Reason: CONSTIPATION Vital Signs - 8 hr 04/15/19 04/15/19 04/15/19 10:20 11:47 13:33 Temperature 98.4 F Pulse Rate 79 Respiratory 16 18 16 Rate Blood Pressure 114/44 (mmHg) O2 Sat by Pulse 94 Oximetry 04/15/19 04/15/19 15:30 15:31 Temperature 98.1 F Pulse Rate 80 Respiratory 14 14 Rate Blood Pressure 110/37 (mmHg) O2 Sat by Pulse 96 Oximetry Oxygen Devices in Use Now: Nasal Cannula Appearance: 73 yo M in nAD, aAOx2 Eyes: No Scleral Icterus, PERRLA Ears/Nose/Mouth/Throat: NL Teeth, Lips, Gums, Mucous Membranes Moist Neck: NL Appearance and Movements; NL JVP, Trachea Midline Respiratory: Symmetrical Chest Expansion and Respiratory Effort, Clear to Auscultation Cardiovascular: NL Sounds; No Murmurs; No JVD, RRR Abdominal: NL Sounds; No Tenderness; No Distention, - - colostomy in place Lymphatic: No Cervical Adenopathy Extremities: No Edema, No Clubbing, Cyanosis Skin: - - b/l heels ulcer-shallow, covered with eschar, R lateral malleolus ulcer at 2 cm stage 1-2, L ischial region , deep unstageable ulcer with packing in place -tunnel like with 3 cm in diam, no discharge noted Neurological: - - paraplegia, somnolence noted, but oriented x 2 - Nutrition: Malnutrition Diagnosis/Plan Malnutrition Assessment by Registered Dietitian: Malnutrition Assessment Clinical Characteristics Acute,Severe Malnutrition Assessment: Moderate muscle/fat loss Criteria Severe acute weight loss (15.9% over 1 1/2 months) Severe deficit in energy intake (<50% - essentially just 1 to 2 servings Boost per day) Malnutrition Assessment: Ensure enlive 3 times daily (350 kcals, 20 gms Interventions protein each) [place] diet (regular at present) Selection of menu to maximize tolerance/ acceptance Malnutrition Assessment: Goals 1. Improved oral intake to >75% to support wound healing, maintenance of lean body mass, adequate hydration w/o contributing to undesirable weight gain. 2. Improvement of K levels to WNL. 3. Evidence of wound healing and no new areas of skin breakdown. Result Diagrams: 04/15/19 06:38 04/15/19 06:38 Additional Lab and Data: Laboratory Results - last 24 hr 04/14/19 04/14/19 04/14/19 07:26 07:26 16:20 WBC 11.8 H RBC 2.56 L Hgb 7.4 L Hct 23 L MCV 88 MCH 29 MCHC 33 RDW 23 H Plt Count 236 MPV 8.2 Neut % (Auto) 72.6 Lymph % (Auto) 11.0 [place] % (Auto) 12.4 Eos % (Auto) 3.1 Baso % (Auto) 0.9 Absolute Neuts (auto) 8.6 H Absolute Lymphs (auto) 1.3 Absolute Monos (auto) 1.5 H Absolute Eos (auto) 0.4 Absolute Basos (auto) 0.1 Absolute Nucleated RBC 0.0 Nucleated RBC % 0.1 Hem Pathologist Commnt Sodium 140 Potassium 5.5 H Chloride 111 Carbon Dioxide 21 L Anion Gap 8 BUN 80 H Creatinine 2.07 H Est GFR ( Amer) 38.3 Est GFR (Non-Af Amer) 31.6 BUN/Creatinine Ratio 38.6 H Glucose 102 H Calcium 10.5 H C-Reactive Protein 226.12 H B-Natriuretic Peptide Urine Color Yellow Urine Appearance Cloudy Urine pH 5.0 Ur Specific [place] 1.016 Urine Protein Negative Urine Ketones Negative Urine Blood 2+ A Urine Nitrate Negative Urine Bilirubin Negative Urine Urobilinogen Negative Ur Leukocyte Esterase 3+ A Urine WBC (Auto) 3+(>20/hpf) A Urine RBC (Auto) 3+(>10/hpf) A Urine Bacteria 1+ A Urine Glucose Negative 04/14/19 16:24 WBC RBC Hgb Hct MCV MCH MCHC RDW Plt Count MPV Neut % (Auto) Lymph % (Auto) [place] % (Auto) Eos % (Auto) Baso % (Auto) Absolute Neuts (auto) Absolute Lymphs (auto) Absolute Monos (auto) Absolute Eos (auto) Absolute Basos (auto) Absolute Nucleated RBC Nucleated RBC % Hem Pathologist Commnt Sodium Potassium Chloride Carbon Dioxide Anion Gap BUN Creatinine Est GFR ( Amer) Est GFR (Non-Af Amer) BUN/Creatinine Ratio Glucose Calcium C-Reactive Protein B-Natriuretic Peptide 258 H Urine Color Urine Appearance Urine pH Ur Specific [place] Urine Protein Urine Ketones Urine Blood Urine Nitrate Urine Bilirubin Urine Urobilinogen Ur Leukocyte Esterase Urine WBC (Auto) Urine RBC (Auto) Urine Bacteria Urine Glucose Assess/Plan/Problems-Billing Assessment: 73 yo male [facility] 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 Transferred from [facility] 04/13 for sepsis 2/2 klebsiella CAUTI. - Patient Problems (1) Catheter-associated urinary tract infection Comment: Urine culture positive for pseudomonas and klebsiella- 75,000-100,000 CFU. Continue zosyn for now. Catheter was changed 04/14/19. appreciate ID consult sepsis at admission-resolved (2) Chronic pain Comment: - Continue levorphanol (3) Pressure ulcer of sacral region, stage 3 Comment: Pressure ulcer over ischium. Overall improving per report. He was initially hospitalized in [place] secondary to infected decubitus. wound care consult appreciated (4) Seizures Current Visit: No Comment: Pt diganosed with seizures during admission in [place]-? secondary to linezolid. Tapering off antiepileptics. no observed seizures Continue to monitor. May need neuro evaluation if any concerns for seizure. (5) Anemia Comment: H/H much lower than in 01/2019 but stable over the last 3 days. Likely anemia related to his severe acute illness over the last 2 months and iron studies consistent wioth ACD. (6) CKD (chronic kidney disease), stage III Comment: Baseline creatinine difficult to determine but likely around 1.5. Now elevated (likely secondary to severe acute illness over last 2 months) but very slowly trending down. K elevated . will tx with patiromer. (7) HTN (hypertension) Comment: Pt diagnosed with PRESS during hospitalization in [place]. BP has been stable Continue amlodipine cut coreg to 12.5mg BID continue cardura continue isordil stop hydralazine. (8) Neurogenic bladder Comment: - Fischer care; Fischer changed due to UTI this hospital stay (9) DVT prophylaxis Comment: HSQ Status and Disposition: medicine inpatient. Likely dispo back to PMRU once improved enough to resume rehabilitation.
--- NOTE | 2019-04-15 18:15 | CONSULT ---
Subjective Date of Service: 04/15/19 Interval History: Mr. 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 He presented to [facility] on 02/23/19 with complaints of fever for 3 days and concerns of an infected pressure injury and consult with Dr. Yassine Blankenship ( previously performed flap reconstruction). He was admitted to [facility] for a sacral pressure injury and underwent debridement (by Dr. Vonnie Virk ) and ABX. He developed Posterior Reversible Encephalopathy Syndrome (PRES) and was intubated, and also found to have seizures. He stayed at [place] for a total of 44 days. He was felt to require rehab and was admitted to [facility] on 04/09/19. Over the weekend he developed sepsis secondary to a UTI and was admitted to the inpatient unit. Patient presented to [facility] from [facility] with multiple pressure injuries including; bilateral heels, left ischium, right hip, sacrum. Also noted to have ecchymosis to the right ankle. He has developed deep tissue injuries to the right heel and buttocks with some shearing injury to the buttocks. Patient seen and examined at bedside. Family History: Unchanged from Admission Social History: Unchanged from Admission Past Medical History: Unchanged from Admission Review of Systems - Measurements Intake and Output: Intake and Output Last 24 Hours 04/13/19 04/14/19 04/15/19 04/16/19 06:59 06:59 06:59 06:59 Intake Total 550 3461 590 Output Total 0 2000 1250 Balance 550 1461 -660 Weight 217 lb Intake: IV Fluids 1203 NS (0.9%) 1203 IVPB 110 110 ABX - ZOSYN 110 110 Medicated IV 218 Piperacillin 218 Oral 550 1930 480 Output: Urine 0 1000 Fischer 1000 1250 Other: Estimated Void Large # Bowel Movements 0 0 # Voids 1 - Review of Systems Constitutional Symptoms: Negative: Fever, Other - Chills Dermatology: Positive: Other - Multiple wounds Objective Active Medications: Acetaminophen (Tylenol Tab*) 650 mg PO Q6H PRN Reason: MILD PAIN or TEMP > 100.4 Amlodipine Besylate (Norvasc Tab*) 10 mg PO DAILY [facility] Aspirin (Aspirin 81 Mg Chew Tab*) 81 mg PO DAILY [facility] Carvedilol (Coreg Tab*) 12.5 mg PO BID [facility] Cholecalciferol (Vitamin D Tab*) 1,000 units PO DAILY [facility] Collagenase (Santyl 250 Units/Gm Oint*) 1 applic TOPICAL DAILY [facility] Cyanocobalamin (Vitamin B12 Tab*) 1,000 mcg PO DAILY [facility] Docusate Sodium (Colace Cap*) 100 mg PO BID PRN Reason: CONSTIPATION Doxazosin Mesylate (Cardura Tab*) 2 mg PO BEDTIME [facility] Heparin Sodium (Porcine) (Heparin Vial(*)) 5,000 units SUBCUT Q8HR [facility] Piperacillin Sod/Tazobactam (Sod 3.375 gm/ Sodium Chloride) 100 mls @ 25 mls/ hr IVPB Q8H [facility] Isosorbide Dinitrate (Isordil Tab*) 10 mg PO TID [facility] Levetiracetam (Keppra Tab*) 500 mg PO BID [facility] Levorphanol Tartrate (Levorphanol 2 Mg (Nf)) 1 mg PO Q12HR [facility] Magnesium Hydroxide (Milk Of Magnesia Liq*) 30 ml PO Q6H PRN Reason: CONSTIPATION Pantoprazole Sodium (Protonix Tab*) 40 mg PO BID [facility] Patiromer (Veltassa Powder*) 8.4 gm PO DAILY [facility] Stop: 04/15/19 23:59 Pharmacy Consult (Zosyn Per Pharmacy*) 1 note FOLLOW UP .ZOSYN PER PHARMACY [facility] Pregabalin (Lyrica Cap(*)) 50 mg PO TID [facility] Senna (Senokot 8.6 Mg Tab*) 2 tab PO BEDTIME PRN Reason: CONSTIPATION Vital Signs 04/15/19 04/15/19 15:30 15:31 Temperature 98.1 F Pulse Rate 80 Respiratory 14 14 Rate Blood Pressure 110/37 (mmHg) O2 Sat by Pulse 96 Oximetry Oxygen Devices in Use Now: Nasal Cannula Appearance: NAD, laying in bed Ears/Nose/Mouth/Throat: Mucous Membranes Moist Respiratory: Symmetrical Chest Expansion and Respiratory Effort Skin: - - See skin note below Neurological: Alert and Oriented x 3 - Nutrition: Malnutrition Diagnosis/Plan Malnutrition Assessment by Registered Dietitian: Malnutrition Assessment Clinical Characteristics Acute,Severe Malnutrition Assessment: Moderate muscle/fat loss Criteria Severe acute weight loss (15.9% over 1 1/2 months) Severe deficit in energy intake (<50% - essentially just 1 to 2 servings Boost per day) Malnutrition Assessment: Ensure enlive 3 times daily (350 kcals, 20 gms Interventions protein each) [place] diet (regular at present) Selection of menu to maximize tolerance/ acceptance Malnutrition Assessment: Goals 1. Improved oral intake to >75% to support wound healing, maintenance of lean body mass, adequate hydration w/o contributing to undesirable weight gain. 2. Improvement of K levels to WNL. 3. Evidence of wound healing and no new areas of skin breakdown. Result Diagrams: 04/20/19 07:35 04/20/19 07:35 Additional Lab and Data: Above labs were pulled into the chart when edited prior to signing, please see below for labs from the day of wound consultation. Laboratory Tests 04/14/19 04/15/19 04/15/19 07:26 06:38 06:38 WBC 10.8 Hgb 7.2 L Hct 21 L Plt Count 231 Sodium 142 Potassium 5.6 H Chloride 113 H Carbon Dioxide 23 BUN 70 H Creatinine 1.82 H Glucose 108 H C-Reactive Protein 226.12 H Laboratory Tests 01/24/19 16:25 Prealbumin 22 Diagnostic Imagin. Exam Date: 02/11/19 - VL ANK/BRACHIAL INDICES FINDINGS: The ankle brachial index on the right was 0.39 and on the left was 0.80. The ankle-brachial indices on the prior study were 0.93 and 0.91 respectively. There is monophasic flow within the right posterior tibial artery and monophasic flow within the right dorsalis pedis artery. There is biphasic flow within the left posterior tibial artery and biphasic flow within the left dorsalis pedis artery. IMPRESSION: SIGNIFICANTLY REDUCED ANKLE-BRACHIAL INDICES AND WAVEFORMS MORE SEVERE IN THE RIGHT LOWER EXTREMITY. CONSIDER A CT ANGIOGRAM OF THE AORTA AND LOWER EXTREMITIES FOR FURTHER EVALUATION. 2. Exam Date: 02/11/19 - MRI LOWER EXTREMITY RIGHT W/O IMPRESSION: SOFT TISSUE SWELLING AND SOFT TISSUE ULCER, NO SPECIFIC EVIDENCE FOR OSTEOMYELITIS. Skin Deviation Note - Skin Deviation Findings Left lateral heel - There is a wound, measures 2 cm x 1.5 cm x 0.1 cm. The wound base with area of slough, and small amount of pink granulation tissue. The surrounding skin is intact. No drainage noted. Right medial heel - No open area. There is an area of dark purplish discoloration, measures 1.5 cm x 3 cm. The surrounding skin is intact with blanchable erythema. Right lateral heel - There is a blister with dark discoloration, measures 2 cm x 2.2 cm. The surrounding skin with slight blanchable erythema. The surrounding skin is intact. Right lateral ankle - There is an area of discoloration, measures 7.5 cm x 2 cm. There is a small area at the distal aspect that is fluctuation, measures 1 cm x 1.3 cm. Right lateral hip - Wound measures 1.2 cm x 1.2 cm, the wound base is 100% yellow slough. The periwound with slight erythema. The surrounding skin is intact. No drainage noted. Lower back, upper sacrum - White exudate present in the natural cleft in the back. There is blanchable erythema. There is a natural "divot" that measures 1 cm x 0.4 cm x 0.2 cm, this doesn't have any open skin. There is erythema surrounding, measures 4 cm x 3.5 cm. Left ischium - Wound measures 4.2 cm x 4.5 cm x 2 cm. The wound base is beefy red granulation tissue. The periwound with slight maceration. The wounding skin is intact. Serous drainage noted on old dressing. Buttocks - There is a superficial open area to the left upper buttock, measures 1.5 cm x 2.5 cm x 0.1 cm. The wound base is red granulation tissue, the surrounding skin is intact. There is a line of dark purple discoloration, total area measures 16 cm x 4 cm. There is a small superficial open area at about 11 o 'clock from the anus, measures 1 cm x 1.3 cm x 0.1 cm. Right buttock/sacrum - Dark purplish discoloration, measures 2.5 cm x 3 cm. The surrounding skin is intact. Wound Problem/Plan Assessment: Mr. 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 He presented to [facility] on 02/23/19 with complaints of fever for 3 days and concerns of an infected pressure injury and consult with Dr. Yassine Blankenship ( previously performed flap reconstruction). He was admitted to [facility] for a sacral pressure injury and underwent debridement (by Dr. Vonnie Virk ) and ABX. He developed Posterior Reversible Encephalopathy Syndrome (PRES) and was intubated, and also found to have seizures. He stayed at [place] for a total of 44 days. He was felt to require rehab and was admitted to [facility] on 04/09/19. Over the weekend he developed sepsis and was admitted to the inpatient unit. Patient presented to [facility] from [facility] with multiple pressure injuries including; bilateral heels, left ischium, right hip, sacrum. Also noted to have ecchymosis to the right ankle. He has developed deep tissue injuries to the right heel and buttocks. 1. Right medial heel stage 3 pressure injury, healed with new deep tissue injury. This has been present since November 2018, he started to follow with the [facility] for this wound in January 2019. Underwent ABIs in February showing reduced ABIs right > left. Also had an MRI of the foot in February 2019, showing no sign of osteomyelitis. He was suppose to have a CTA with runoff and referral to Dr. Mckinley, but it appears that was neither were ever completed. While in [facility] this wound was being treated with a border foam dressing. The wound is healing when compared to initial measurements from 01/24/19, at which time the wound measured 1.7 cm x 3 cm x 0.1 cm. Recommend applying a border foam dressing (Optifoam), and change every 3 days or as needed for drainage. Keep the heels elevated off the bed. Consider checking a prealbumin to evaluate nutritional status. Consider referral to Vascular outpatient as previously recommended. 2. Right lateral ankle and right posterior/lateral heel. There is an area of discoloration, this appears to be ecchymosis, suspect this represents deep tissue injuries. While in [facility] the right lateral ankle was being treated with a border foam dressing. The right posterior/lateral heel deep tissue injury has developed over the past week. Recommend using a border foam dressing (Optifoam) to protect the area, but could consider leaving open to air as there is no open areas. 3. Left medial heel unstageable pressure injury. Unclear how long this has been present. Ms. Merino reports this has been present since January, but was not previously documented by the [facility] in January and February when he was seen there last. See LINA results above. While in [facility] this wound was being treated with Medihoney and a border foam dressing and being changed every other day. Recommend Medihoney alginate followed by a border foam dressing (Optifoam), and change every other day or as needed for drainage. Keep the heels elevated off the bed. Consider checking a prealbumin to evaluate nutritional status. Consider referral to Vascular outpatient. If wound continues to be present and not healing, should consider MRI to evaluate for Osteomyelitis. 4. Left ischium stage 3 pressure injury. This has been present since November 2018, he started to follow with the [facility] for this wound in January 2019. While in [facility] this wound was being treated with a wound vac, and then changed to Santyl BID with wet to dry dressing at the time of discharge. This is reported to have wound cultures with MRSA and VRE while in [place]. He was treated with Linezolid and Zosyn, unclear for how long. Recommend gently packing the wound with calcium alginate rope, and cover with a border foam gauze (Optifoam) and change daily or as needed for drainage. Frequent turning and repositioning. Do not sit up in a chair for more than 1-2 hours at a time if possible. Use Roho cushion in wheel chair when up OOB. Consider checking a prealbumin to evaluate nutritional status. Should be referred back to the [facility] (or wound clinic of choice ) at discharge. 5. Sacral/lower back stage 2 pressure injury, healed. Unclear how long this has been present, but Ms. Merino reports new since January 2019. While at 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 Fracture of the L3 vertebral body. There is perhaps slightly marrow signal abnormality within the posterior elements of the sacrum at the level of S3, which is nonspecific and may be reactive secondary to the adjacent mass, however early/mild changes related to osteomyelitis cannot be entirely excluded". The wound has healed, and there is excoriated skin. Recommend applying barrier cream (orange top) as needed. If the area appears to have a fungal infection recommend discontinuing barrier cream and use Nystatin powder twice daily. Frequent turning and repositioning. Consider checking a prealbumin to evaluate nutritional status. 6. Right hip unstageble pressure injury. Unclear how long this has been present , but developed after last seen at the wound clinic in February as not documented at that time (02/13/19). While at [facility] this was being treated with Santyl and a border foam dressing. Recommend applying Santyl to the wound base once daily, followed by a border foam dressing (Optifoam) and change daily or as needed for drainage. Frequent turning and repositioning. Do not sit up in a chair for more than 1-2 hours at a time if possible. Use Roho cushion in wheel chair when up OOB. Consider checking a prealbumin to evaluate nutritional status. 7. Anterior urethral injury; acquired latrogenic hypospadias. human factors advisor lead related pressure injury to the penis secondary to the urinary catheter. This is not new and has been documented by Urology in the past. Use caution to keep pressure off the urinary catheter tube to prevent further breakdown. 8. Paraplegia secondary to spinal ependymoma. With neurogenic bladder and a chronic indwelling urinary catheter. 9. Diet. Regular diet. 10. Code Status. DNR 11. Disposition. Inpatient, disposition per Primary team. Is Patient a Wound Clinic Patient: Yes Counseling and/or Coordination of Care Minutes: 50 Points of Discussion: TIME SPENT: Time for this wound consultation was 50 minutes and 40 minutes was spent at bedside with the patient and discussing events of the past week; removing dressings; assessing, measuring, and photographing the wounds; and reapplying new dressings Attending: Carin Anthony
[2019-04-15] MEDS: Doxazosin TAB* 2 MG PO SCH (23:06)
[2019-04-16] MEDS: ZOSYN 3.375 GM Q8H per EXTENDED INFUSION IVPB SCH ×6 (03:58→21:18)
[2019-04-16] MEDS: Heparin VIAL(*) 5000 UNITS/ML VIAL (FIVE THOUSAND) SUBCUT SCH ×3 (06:14→21:28)
[2019-04-16 06:51] LABS: ABS Basophils 0.1 10^3/ul (0-0.2); ABS Eosinophils 0.4 10^3/ul (0-0.6); ABS Neutrophils 4.2 10^3/ul (1.5-7.7); Eosinophil % 4.9 %; Hematocrit 20 % (42-52); Hemoglobin 6.7 g/dL (14.0-18.0); Mean Corpuscular HGB Conc 34 g/dL (31-36); Mean Corpuscular Hemoglobin 29 pg (27-31); Mean Corpuscular Volume 86 fL (80-94); Mean Platelet Volume 8.1 fL (7.4-10.4); Platelet Count 214 10^3/uL (150-450); Red Blood Count 2.34 10^6 /uL (4.18-5.48); Red Cell Distribution Width 22 % (10-15); White Blood Count 7.6 10^3/uL (3.5-10.8)
[2019-04-16 07:09] LABS: BUN/Creatinine Ratio 36.8 (8-20); Calcium 10.2 mg/dL (8.6-10.3); EGFR African American 53.4 (>60); EGFR Non-African American 44.2 (>60)
[2019-04-16 07:35] LABS: Potassium 5.5 mmol/L (3.5-5.0)
[2019-04-16] MEDS: LEVORPHANOL 2 MG PO SCH ×2 (10:28→21:25)
[2019-04-16] MEDS: Carvedilol TAB* 6.25 MG PO SCH ×2 (10:29→21:27)
[2019-04-16] MEDS: Pregabalin CAP(*) 50 MG PO SCH ×3 (10:30→21:26)
[2019-04-16] MEDS: levETIRAcetam TAB* 500 MG PO SCH ×2 (10:32→21:28)
[2019-04-16] MEDS: Isosorbide Dinitrate TAB* 10 MG PO SCH ×3 (10:33→22:22)
[2019-04-16] MEDS: amLODIPine TAB* 5 MG PO SCH (10:33)
[2019-04-16] MEDS: Cyanocobalamin TAB* 500 MCG PO SCH ×2 (10:34→10:35)
[2019-04-16] MEDS: Pantoprazole TAB * 40 MG TAB PO SCH ×2 (10:35→21:27)
[2019-04-16] MEDS: Aspirin 81 mg CHEW TAB* 81 MG TAB.CHEW PO SCH (10:35)
[2019-04-16] MEDS: Cholecalciferol TAB* 1000 UNITS PO SCH (11:17)
[2019-04-16] MEDS: Collagenase 250 UNITS/GM OINT* 1 APPLIC OINT TOPICAL SCH (11:23)
--- NOTE | 2019-04-16 12:12 | PN ---
Subjective Date of Service: 04/16/19 Interval History: Pt see with by the bedside. Much more awake and interactive today. no complaints Family History: Unchanged from Admission Social History: Unchanged from Admission Past Medical History: Unchanged from Admission Objective Active Medications: Acetaminophen (Tylenol Tab*) 650 mg PO Q6H PRN PRN Reason: MILD PAIN or TEMP > 100.4 Amlodipine Besylate (Norvasc Tab*) 10 mg PO DAILY [facility] Last Admin: 04/16/19 10:33 Dose: 10 mg Aspirin (Aspirin 81 Mg Chew Tab*) 81 mg PO DAILY [facility] Last Admin: 04/16/19 10:35 Dose: 81 mg Carvedilol (Coreg Tab*) 12.5 mg PO BID [facility] Last Admin: 04/16/19 10:29 Dose: 12.5 mg Cholecalciferol (Vitamin D Tab*) 1,000 units PO DAILY [facility] Last Admin: 04/16/19 11:17 Dose: 1,000 units Collagenase (Santyl 250 Units/Gm Oint*) 1 applic TOPICAL DAILY [facility] Last Admin: 04/16/19 11:23 Dose: Not Given Cyanocobalamin (Vitamin B12 Tab*) 1,000 mcg PO DAILY [facility] Last Admin: 04/16/19 10:35 Dose: 1,000 mcg Docusate Sodium (Colace Cap*) 100 mg PO BID PRN PRN Reason: CONSTIPATION Doxazosin Mesylate (Cardura Tab*) 2 mg PO BEDTIME [facility] Last Admin: 04/15/19 23:06 Dose: 2 mg Heparin Sodium (Porcine) (Heparin Vial(*)) 5,000 units SUBCUT Q8HR [facility] Last Admin: 04/16/19 06:14 Dose: 5,000 units Piperacillin Sod/Tazobactam (Sod 3.375 gm/ Sodium Chloride) 100 mls @ 25 mls/ hr IVPB Q8H [facility] Last Admin: 04/16/19 03:58 Dose: 25 mls/hr Isosorbide Dinitrate (Isordil Tab*) 10 mg PO TID [facility] Last Admin: 04/16/19 10:33 Dose: 10 mg Levetiracetam (Keppra Tab*) 500 mg PO BID [facility] Last Admin: 04/16/19 10:32 Dose: 500 mg Levorphanol Tartrate (Levorphanol 2 Mg (Nf)) 1 mg PO Q12HR [facility] Last Admin: 04/16/19 10:28 Dose: 1 mg Magnesium Hydroxide (Milk Of Magnesia Liq*) 30 ml PO Q6H PRN PRN Reason: CONSTIPATION Pantoprazole Sodium (Protonix Tab*) 40 mg PO BID [facility] Last Admin: 04/16/19 10:35 Dose: 40 mg Pharmacy Consult (Zosyn Per Pharmacy*) 1 note FOLLOW UP .ZOSYN PER PHARMACY [facility] Pregabalin (Lyrica Cap(*)) 50 mg PO TID [facility] Last Admin: 04/16/19 10:30 Dose: 50 mg Senna (Senokot 8.6 Mg Tab*) 2 tab PO BEDTIME PRN PRN Reason: CONSTIPATION Vital Signs - 8 hr 04/16/19 04/16/19 04/16/19 04:21 08:00 10:30 Temperature 97.3 F 98.4 F Pulse Rate 65 70 Respiratory 19 12 16 Rate Blood Pressure 132/48 128/58 (mmHg) O2 Sat by Pulse 96 99 Oximetry 04/16/19 12:00 Temperature 98.5 F Pulse Rate 77 Respiratory 12 Rate Blood Pressure 128/55 (mmHg) O2 Sat by Pulse 99 Oximetry Oxygen Devices in Use Now: Nasal Cannula Appearance: 73 yo m in nAD, aAOx2 Eyes: No Scleral Icterus, PERRLA Ears/Nose/Mouth/Throat: NL Teeth, Lips, Gums, Mucous Membranes Moist Neck: NL Appearance and Movements; NL JVP, Trachea Midline Respiratory: Symmetrical Chest Expansion and Respiratory Effort, Clear to Auscultation Cardiovascular: NL Sounds; No Murmurs; No JVD, RRR Abdominal: NL Sounds; No Tenderness; No Distention, - - colostomy in place Lymphatic: No Cervical Adenopathy Extremities: No Edema Skin: No Nodules or Sclerosis, - - muliple decubiti on sacrum and b/l ischial region, stage 1-2 measuring 2-3 cm. On deep tunnel like on left ischium-stage 3 , with packing in place. b/l heel decubiti unchanged Neurological: - - paraplegia at baseline, speech clear - Nutrition: Malnutrition Diagnosis/Plan Malnutrition Assessment by Registered Dietitian: Malnutrition Assessment Clinical Characteristics Acute,Severe Malnutrition Assessment: Moderate muscle/fat loss Criteria Severe acute weight loss (15.9% over 1 1/2 months) Severe deficit in energy intake (<50% - essentially just 1 to 2 servings Boost per day) Malnutrition Assessment: Ensure enlive 3 times daily (350 kcals, 20 gms Interventions protein each) [place] diet (regular at present) Selection of menu to maximize tolerance/ acceptance Malnutrition Assessment: Goals 1. Improved oral intake to >75% to support wound healing, maintenance of lean body mass, adequate hydration w/o contributing to undesirable weight gain. 2. Improvement of K levels to WNL. 3. Evidence of wound healing and no new areas of skin breakdown. Result Diagrams: 04/16/19 05:36 04/16/19 05:36 Additional Lab and Data: Laboratory Results - last 24 hr 04/14/19 04/14/19 04/14/19 07:26 07:26 16:20 WBC 11.8 H RBC 2.56 L Hgb 7.4 L Hct 23 L MCV 88 MCH 29 MCHC 33 RDW 23 H Plt Count 236 MPV 8.2 Neut % (Auto) 72.6 Lymph % (Auto) 11.0 [place] % (Auto) 12.4 Eos % (Auto) 3.1 Baso % (Auto) 0.9 Absolute Neuts (auto) 8.6 H Absolute Lymphs (auto) 1.3 Absolute Monos (auto) 1.5 H Absolute Eos (auto) 0.4 Absolute Basos (auto) 0.1 Absolute Nucleated RBC 0.0 Nucleated RBC % 0.1 Hem Pathologist Commnt Sodium 140 Potassium 5.5 H Chloride 111 Carbon Dioxide 21 L Anion Gap 8 BUN 80 H Creatinine 2.07 H Est GFR ( Amer) 38.3 Est GFR (Non-Af Amer) 31.6 BUN/Creatinine Ratio 38.6 H Glucose 102 H Calcium 10.5 H C-Reactive Protein 226.12 H B-Natriuretic Peptide Urine Color Yellow Urine Appearance Cloudy Urine pH 5.0 Ur Specific [place] 1.016 Urine Protein Negative Urine Ketones Negative Urine Blood 2+ A Urine Nitrate Negative Urine Bilirubin Negative Urine Urobilinogen Negative Ur Leukocyte Esterase 3+ A Urine WBC (Auto) 3+(>20/hpf) A Urine RBC (Auto) 3+(>10/hpf) A Urine Bacteria 1+ A Urine Glucose Negative 04/14/19 16:24 WBC RBC Hgb Hct MCV MCH MCHC RDW Plt Count MPV Neut % (Auto) Lymph % (Auto) [place] % (Auto) Eos % (Auto) Baso % (Auto) Absolute Neuts (auto) Absolute Lymphs (auto) Absolute Monos (auto) Absolute Eos (auto) Absolute Basos (auto) Absolute Nucleated RBC Nucleated RBC % Hem Pathologist Commnt Sodium Potassium Chloride Carbon Dioxide Anion Gap BUN Creatinine Est GFR ( Amer) Est GFR (Non-Af Amer) BUN/Creatinine Ratio Glucose Calcium C-Reactive Protein B-Natriuretic Peptide 258 H Urine Color Urine Appearance Urine pH Ur Specific [place] Urine Protein Urine Ketones Urine Blood Urine Nitrate Urine Bilirubin Urine Urobilinogen Ur Leukocyte Esterase Urine WBC (Auto) Urine RBC (Auto) Urine Bacteria Urine Glucose Diagnostic Imagin. Exam Date: 02/11/19 - VL ANK/BRACHIAL INDICES FINDINGS: The ankle brachial index on the right was 0.39 and on the left was 0.80. The ankle-brachial indices on the prior study were 0.93 and 0.91 respectively. There is monophasic flow within the right posterior tibial artery and monophasic flow within the right dorsalis pedis artery. There is biphasic flow within the left posterior tibial artery and biphasic flow within the left dorsalis pedis artery. IMPRESSION: SIGNIFICANTLY REDUCED ANKLE-BRACHIAL INDICES AND WAVEFORMS MORE SEVERE IN THE RIGHT LOWER EXTREMITY. CONSIDER A CT ANGIOGRAM OF THE AORTA AND LOWER EXTREMITIES FOR FURTHER EVALUATION. 2. Exam Date: 02/11/19 - MRI LOWER EXTREMITY RIGHT W/O IMPRESSION: SOFT TISSUE SWELLING AND SOFT TISSUE ULCER, NO SPECIFIC EVIDENCE FOR OSTEOMYELITIS. Assess/Plan/Problems-Billing Assessment: 73 yo male [facility] 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 Transferred from [facility] 04/13 for sepsis 2/2 klebsiella CAUTI. - Patient Problems (1) Catheter-associated urinary tract infection Comment: Urine culture positive for pseudomonas and klebsiella- 75,000-100,000 CFU. Continue zosyn for now. Catheter was changed 04/14/19. appreciate ID consult sepsis at admission-resolved (2) Chronic pain Comment: - Continue levorphanol (3) Pressure ulcer of sacral region, stage 3 Comment: Pressure ulcer over ischium. Overall improving per report. He was initially hospitalized in [place] secondary to infected decubitus. wound care consult appreciated (4) Seizures Comment: Pt diagnosed with seizures during admission in [place]-? secondary to linezolid. Tapering off antiepileptics. no observed seizures Continue to monitor. May need neuro evaluation if any concerns for seizure. (5) Anemia Comment: H/H much lower than in 01/2019 . Likely anemia related to his severe acute illness over the last 2 months and iron studies consistent with ACD. today Hb <7, will transfuse 1 u PRBC (6) CKD (chronic kidney disease), stage III Comment: Baseline creatinine difficult to determine but likely around 1.5. Now elevated (likely secondary to severe acute illness over last 2 months) but very slowly trending down. K elevated . Patiromer did not change the potassium level significantly. will place pt on K low diet. (7) HTN (hypertension) Comment: Pt diagnosed with PRESS during hospitalization in [place]. BP has been stable Continue amlodipine coreg 12.5mg BID continue cardura continue isordil (8) Neurogenic bladder Comment: - Fischer care; Fischer changed due to UTI this hospital stay (9) DVT prophylaxis Comment: HSQ Status and Disposition: medicine inpatient. awaiting PMRU eval for possible transfer back
[2019-04-16] MEDS: Doxazosin TAB* 2 MG PO SCH (21:26)
[2019-04-17] MEDS: ZOSYN 3.375 GM Q8H per EXTENDED INFUSION IVPB SCH ×6 (04:55→21:30)
[2019-04-17 06:02] LABS: ABS Basophils 0.1 10^3/ul (0-0.2); ABS Eosinophils 0.4 10^3/ul (0-0.6); ABS Monocytes 0.9 10^3/ul (0-0.8); Eosinophil % 5.3 %; Hematocrit 24 % (42-52); Hemoglobin 7.9 g/dL (14.0-18.0); Lymphocyte % 26.7 %; Mean Corpuscular HGB Conc 33 g/dL (31-36); Mean Corpuscular Hemoglobin 28 pg (27-31); Mean Corpuscular Volume 85 fL (80-94); Mean Platelet Volume 7.7 fL (7.4-10.4); Platelet Count 219 10^3/uL (150-450); Red Blood Count 2.81 10^6 /uL (4.18-5.48); Red Cell Distribution Width 21 % (10-15); White Blood Count 7.4 10^3/uL (3.5-10.8)
[2019-04-17] MEDS: Heparin VIAL(*) 5000 UNITS/ML VIAL (FIVE THOUSAND) SUBCUT SCH ×3 (06:12→21:31)
[2019-04-17 06:28] LABS: Calcium 10.2 mg/dL (8.6-10.3); EGFR African American 60.6 (>60); EGFR Non-African American 50.1 (>60)
[2019-04-17 06:42] LABS: Potassium 5.1 mmol/L (3.5-5.0)
[2019-04-17] MEDS: LEVORPHANOL 2 MG PO SCH ×2 (08:57→21:45)
[2019-04-17] MEDS: Carvedilol TAB* 6.25 MG PO SCH ×2 (08:58→21:31)
[2019-04-17] MEDS: Cholecalciferol TAB* 1000 UNITS PO SCH (08:58)
[2019-04-17] MEDS: amLODIPine TAB* 5 MG PO SCH (08:59)
[2019-04-17] MEDS: Isosorbide Dinitrate TAB* 10 MG PO SCH ×3 (08:59→21:31)
[2019-04-17] MEDS: Aspirin 81 mg CHEW TAB* 81 MG TAB.CHEW PO SCH (09:00)
[2019-04-17] MEDS: Pregabalin CAP(*) 50 MG PO SCH ×3 (09:00→21:31)
[2019-04-17] MEDS: Pantoprazole TAB * 40 MG TAB PO SCH ×2 (09:00→21:31)
[2019-04-17] MEDS: levETIRAcetam TAB* 500 MG PO SCH ×2 (09:00→21:31)
[2019-04-17] MEDS: Collagenase 250 UNITS/GM OINT* 1 APPLIC OINT TOPICAL SCH (09:03)
--- NOTE | 2019-04-17 16:10 | PN ---
Subjective Date of Service: 04/17/19 Interval History: Pt is more awake today. As per d/w : able to eat by himself. No new complaints Family History: Unchanged from Admission Social History: Unchanged from Admission Past Medical History: Unchanged from Admission Objective Active Medications: Acetaminophen (Tylenol Tab*) 650 mg PO Q6H PRN PRN Reason: MILD PAIN or TEMP > 100.4 Amlodipine Besylate (Norvasc Tab*) 10 mg PO DAILY [facility] Last Admin: 04/17/19 08:59 Dose: 10 mg Aspirin (Aspirin 81 Mg Chew Tab*) 81 mg PO DAILY [facility] Last Admin: 04/17/19 09:00 Dose: 81 mg Carvedilol (Coreg Tab*) 12.5 mg PO BID [facility] Last Admin: 04/17/19 08:58 Dose: 12.5 mg Cholecalciferol (Vitamin D Tab*) 1,000 units PO DAILY [facility] Last Admin: 04/17/19 08:58 Dose: 1,000 units Collagenase (Santyl 250 Units/Gm Oint*) 1 applic TOPICAL DAILY [facility] Last Admin: 04/17/19 09:03 Dose: 1 applic Cyanocobalamin (Vitamin B12 Tab*) 1,000 mcg PO DAILY [facility] Last Admin: 04/16/19 10:35 Dose: 1,000 mcg Docusate Sodium (Colace Cap*) 100 mg PO BID PRN PRN Reason: CONSTIPATION Doxazosin Mesylate (Cardura Tab*) 2 mg PO BEDTIME [facility] Last Admin: 04/16/19 21:26 Dose: 2 mg Heparin Sodium (Porcine) (Heparin Vial(*)) 5,000 units SUBCUT Q8HR [facility] Last Admin: 04/17/19 14:26 Dose: 5,000 units Piperacillin Sod/Tazobactam (Sod 3.375 gm/ Sodium Chloride) 100 mls @ 25 mls/ hr IVPB Q8H [facility] Last Admin: 04/17/19 12:21 Dose: 25 mls/hr Isosorbide Dinitrate (Isordil Tab*) 10 mg PO TID [facility] Last Admin: 04/17/19 14:26 Dose: 10 mg Levetiracetam (Keppra Tab*) 500 mg PO BID [facility] Last Admin: 04/17/19 09:00 Dose: 500 mg Levorphanol Tartrate (Levorphanol 2 Mg (Nf)) 1 mg PO Q12HR [facility] Last Admin: 04/17/19 08:57 Dose: 1 mg Magnesium Hydroxide (Milk Of Magnesia Liq*) 30 ml PO Q6H PRN PRN Reason: CONSTIPATION Pantoprazole Sodium (Protonix Tab*) 40 mg PO BID [facility] Last Admin: 04/17/19 09:00 Dose: 40 mg Pharmacy Consult (Zosyn Per Pharmacy*) 1 note FOLLOW UP .ZOSYN PER PHARMACY [facility] Pregabalin (Lyrica Cap(*)) 50 mg PO TID [facility] Last Admin: 04/17/19 14:26 Dose: 50 mg Senna (Senokot 8.6 Mg Tab*) 2 tab PO BEDTIME PRN PRN Reason: CONSTIPATION Vital Signs - 8 hr 04/17/19 04/17/19 04/17/19 08:10 09:00 11:47 Temperature 97.3 F 98.2 F Pulse Rate 64 74 Respiratory 18 18 20 Rate Blood Pressure 125/41 120/54 (mmHg) O2 Sat by Pulse 99 96 Oximetry 04/17/19 04/17/19 12:09 14:26 Temperature Pulse Rate Respiratory 17 19 Rate Blood Pressure (mmHg) O2 Sat by Pulse Oximetry Oxygen Devices in Use Now: Nasal Cannula Appearance: 73 yo M in nAD, AAOx3 Eyes: No Scleral Icterus, PERRLA Ears/Nose/Mouth/Throat: NL Teeth, Lips, Gums, Mucous Membranes Moist Neck: NL Appearance and Movements; NL JVP, No Thyroid Enlargement, Masses Respiratory: Symmetrical Chest Expansion and Respiratory Effort, Clear to Auscultation Cardiovascular: NL Sounds; No Murmurs; No JVD, RRR Abdominal: NL Sounds; No Tenderness; No Distention, - - colostomy in place Extremities: - - heel decubiti unchanged Skin: - - secral and left ischial decubiti unchanged Neurological: - - paraplegia-chronic - Nutrition: Malnutrition Diagnosis/Plan Malnutrition Assessment by Registered Dietitian: Malnutrition Assessment Clinical Characteristics Acute,Severe Malnutrition Assessment: Moderate muscle/fat loss Criteria Severe acute weight loss (15.9% over 1 1/2 months) Severe deficit in energy intake (<50% - essentially just 1 to 2 servings Boost per day) Malnutrition Assessment: Ensure enlive 3 times daily (350 kcals, 20 gms Interventions protein each) [place] diet (regular at present) Selection of menu to maximize tolerance/ acceptance Malnutrition Assessment: Goals 1. Improved oral intake to >75% to support wound healing, maintenance of lean body mass, adequate hydration w/o contributing to undesirable weight gain. 2. Improvement of K levels to WNL. 3. Evidence of wound healing and no new areas of skin breakdown. Result Diagrams: 04/17/19 05:20 04/17/19 05:20 Additional Lab and Data: Laboratory Results - last 24 hr 04/14/19 04/14/19 04/14/19 07:26 07:26 16:20 WBC 11.8 H RBC 2.56 L Hgb 7.4 L Hct 23 L MCV 88 MCH 29 MCHC 33 RDW 23 H Plt Count 236 MPV 8.2 Neut % (Auto) 72.6 Lymph % (Auto) 11.0 [place] % (Auto) 12.4 Eos % (Auto) 3.1 Baso % (Auto) 0.9 Absolute Neuts (auto) 8.6 H Absolute Lymphs (auto) 1.3 Absolute Monos (auto) 1.5 H Absolute Eos (auto) 0.4 Absolute Basos (auto) 0.1 Absolute Nucleated RBC 0.0 Nucleated RBC % 0.1 Hem Pathologist Commnt Sodium 140 Potassium 5.5 H Chloride 111 Carbon Dioxide 21 L Anion Gap 8 BUN 80 H Creatinine 2.07 H Est GFR ( Amer) 38.3 Est GFR (Non-Af Amer) 31.6 BUN/Creatinine Ratio 38.6 H Glucose 102 H Calcium 10.5 H C-Reactive Protein 226.12 H B-Natriuretic Peptide Urine Color Yellow Urine Appearance Cloudy Urine pH 5.0 Ur Specific [place] 1.016 Urine Protein Negative Urine Ketones Negative Urine Blood 2+ A Urine Nitrate Negative Urine Bilirubin Negative Urine Urobilinogen Negative Ur Leukocyte Esterase 3+ A Urine WBC (Auto) 3+(>20/hpf) A Urine RBC (Auto) 3+(>10/hpf) A Urine Bacteria 1+ A Urine Glucose Negative 04/14/19 16:24 WBC RBC Hgb Hct MCV MCH MCHC RDW Plt Count MPV Neut % (Auto) Lymph % (Auto) [place] % (Auto) Eos % (Auto) Baso % (Auto) Absolute Neuts (auto) Absolute Lymphs (auto) Absolute Monos (auto) Absolute Eos (auto) Absolute Basos (auto) Absolute Nucleated RBC Nucleated RBC % Hem Pathologist Commnt Sodium Potassium Chloride Carbon Dioxide Anion Gap BUN Creatinine Est GFR ( Amer) Est GFR (Non-Af Amer) BUN/Creatinine Ratio Glucose Calcium C-Reactive Protein B-Natriuretic Peptide 258 H Urine Color Urine Appearance Urine pH Ur Specific [place] Urine Protein Urine Ketones Urine Blood Urine Nitrate Urine Bilirubin Urine Urobilinogen Ur Leukocyte Esterase Urine WBC (Auto) Urine RBC (Auto) Urine Bacteria Urine Glucose Microbiology and Other Data: Microbiology 04/14/19 16:20 Urine Culture - Final Urine Julissa Albicans Normal [place] Diagnostic Imagin. Exam Date: 02/11/19 - VL ANK/BRACHIAL INDICES FINDINGS: The ankle brachial index on the right was 0.39 and on the left was 0.80. The ankle-brachial indices on the prior study were 0.93 and 0.91 respectively. There is monophasic flow within the right posterior tibial artery and monophasic flow within the right dorsalis pedis artery. There is biphasic flow within the left posterior tibial artery and biphasic flow within the left dorsalis pedis artery. IMPRESSION: SIGNIFICANTLY REDUCED ANKLE-BRACHIAL INDICES AND WAVEFORMS MORE SEVERE IN THE RIGHT LOWER EXTREMITY. CONSIDER A CT ANGIOGRAM OF THE AORTA AND LOWER EXTREMITIES FOR FURTHER EVALUATION. 2. Exam Date: 02/11/19 - MRI LOWER EXTREMITY RIGHT W/O IMPRESSION: SOFT TISSUE SWELLING AND SOFT TISSUE ULCER, NO SPECIFIC EVIDENCE FOR OSTEOMYELITIS. Assess/Plan/Problems-Billing Assessment: 73 yo male [facility] 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 Transferred from [facility] 04/13 for sepsis 2/2 klebsiella CAUTI. - Patient Problems (1) Catheter-associated urinary tract infection Comment: Urine culture positive for pseudomonas and klebsiella- 75,000-100,000 CFU. Continue zosyn for next 2 days-as per d/w Dr. Hebert -last dose on Sat night Catheter was changed 04/14/19. appreciate ID consult sepsis at admission-resolved (2) Chronic pain Comment: - Continue levorphanol (3) Pressure ulcer of sacral region, stage 3 Comment: Pressure ulcer over ischium. Overall improving per report. He was initially hospitalized in [place] secondary to infected decubitus. wound care consult appreciated (4) Seizures Comment: Pt diagnosed with seizures during admission in [place]-? secondary to linezolid. Cont on antiepileptics. no observed seizures Continue to monitor. May need neuro evaluation if any concerns for seizure. (5) Anemia Comment: H/H much lower than in 01/2019 . Likely anemia related to his severe acute illness over the last 2 months and iron studies consistent with ACD. transfused 1 u PRBC on 04/16/19 will not do bloodwork tomorrow to minimize blood loss (6) CKD (chronic kidney disease), stage III Comment: Baseline creatinine difficult to determine but likely around 1.5. Elevated at admission (likely secondary to severe acute illness over last 2 months) but very slowly trending down. K elevated . Patiromer did not change the potassium level significantly. Placed pt on K low diet. (7) HTN (hypertension) Comment: Pt diagnosed with PRESS during hospitalization in [place]. BP has been stable Continue amlodipine coreg 12.5mg BID continue cardura continue isordil (8) Neurogenic bladder Comment: - Fischer care; Fischer changed due to UTI this hospital stay (9) DVT prophylaxis Comment: HSQ Status and Disposition: medicine inpatient. awaiting PMRU eval for possible transfer back
[2019-04-17] MEDS: Ferrous Gluconate TAB* 324 MG TAB PO SCH (16:53)
[2019-04-17] MEDS: Doxazosin TAB* 2 MG PO SCH (21:31)
[2019-04-18] MEDS: ZOSYN 3.375 GM Q8H per EXTENDED INFUSION IVPB SCH ×6 (06:26→20:48)
[2019-04-18] MEDS: Heparin VIAL(*) 5000 UNITS/ML VIAL (FIVE THOUSAND) SUBCUT SCH ×3 (06:28→20:46)
--- NOTE | 2019-04-18 07:44 | PN ---
Subjective Date of Service: 04/18/19 Interval History: HOSPITALIST PROGRESS NOTE Patient seen and examined at bedside. Care reviewed and d/w Family History: Unchanged from Admission Social History: Unchanged from Admission Past Medical History: Unchanged from Admission Objective Active Medications: Acetaminophen (Tylenol Tab*) 650 mg PO Q6H PRN PRN Reason: MILD PAIN or TEMP > 100.4 Amlodipine Besylate (Norvasc Tab*) 10 mg PO DAILY [facility] Last Admin: 04/17/19 08:59 Dose: 10 mg Aspirin (Aspirin 81 Mg Chew Tab*) 81 mg PO DAILY [facility] Last Admin: 04/17/19 09:00 Dose: 81 mg Carvedilol (Coreg Tab*) 12.5 mg PO BID [facility] Last Admin: 04/17/19 21:31 Dose: 12.5 mg Cholecalciferol (Vitamin D Tab*) 1,000 units PO DAILY [facility] Last Admin: 04/17/19 08:58 Dose: 1,000 units Collagenase (Santyl 250 Units/Gm Oint*) 1 applic TOPICAL DAILY [facility] Last Admin: 04/17/19 09:03 Dose: 1 applic Cyanocobalamin (Vitamin B12 Tab*) 1,000 mcg PO DAILY [facility] Last Admin: 04/16/19 10:35 Dose: 1,000 mcg Docusate Sodium (Colace Cap*) 100 mg PO BID PRN PRN Reason: CONSTIPATION Doxazosin Mesylate (Cardura Tab*) 2 mg PO BEDTIME [facility] Last Admin: 04/17/19 21:31 Dose: 2 mg Ferrous Gluconate (Fergon Tab*) 324 mg PO DAILY [facility] Last Admin: 04/17/19 16:53 Dose: 324 mg Heparin Sodium (Porcine) (Heparin Vial(*)) 5,000 units SUBCUT Q8HR [facility] Last Admin: 04/18/19 06:28 Dose: 5,000 units Piperacillin Sod/Tazobactam (Sod 3.375 gm/ Sodium Chloride) 100 mls @ 25 mls/ hr IVPB Q8H [facility] Stop: 04/19/19 23:59 Last Admin: 04/18/19 06:26 Dose: 25 mls/hr Isosorbide Dinitrate (Isordil Tab*) 10 mg PO TID [facility] Last Admin: 04/17/19 21:31 Dose: 10 mg Levetiracetam (Keppra Tab*) 500 mg PO BID [facility] Last Admin: 04/17/19 21:31 Dose: 500 mg Levorphanol Tartrate (Levorphanol 2 Mg (Nf)) 1 mg PO Q12HR [facility] Last Admin: 04/17/19 21:45 Dose: 1 mg Magnesium Hydroxide (Milk Of Magnesia Liq*) 30 ml PO Q6H PRN PRN Reason: CONSTIPATION Pantoprazole Sodium (Protonix Tab*) 40 mg PO BID [facility] Last Admin: 04/17/19 21:31 Dose: 40 mg Pharmacy Consult (Zosyn Per Pharmacy*) 1 note FOLLOW UP .ZOSYN PER PHARMACY [facility] Pregabalin (Lyrica Cap(*)) 50 mg PO TID [facility] Last Admin: 04/17/19 21:31 Dose: 50 mg Senna (Senokot 8.6 Mg Tab*) 2 tab PO BEDTIME PRN PRN Reason: CONSTIPATION Vital Signs - 8 hr 04/18/19 04/18/19 03:33 07:20 Temperature 97.5 F 98.4 F Pulse Rate 72 65 Respiratory 18 16 Rate Blood Pressure 138/54 129/58 (mmHg) O2 Sat by Pulse 97 97 Oximetry Oxygen Devices in Use Now: Nasal Cannula - Nutrition: Malnutrition Diagnosis/Plan Malnutrition Assessment by Registered Dietitian: Malnutrition Assessment Clinical Characteristics Acute,Severe Malnutrition Assessment: Moderate muscle/fat loss Criteria Severe acute weight loss (15.9% over 1 1/2 months) Severe deficit in energy intake (<50% - essentially just 1 to 2 servings Boost per day) Malnutrition Assessment: Ensure enlive 3 times daily (350 kcals, 20 gms Interventions protein each) [place] diet (regular at present) Selection of menu to maximize tolerance/ acceptance Malnutrition Assessment: Goals 1. Improved oral intake to >75% to support wound healing, maintenance of lean body mass, adequate hydration w/o contributing to undesirable weight gain. 2. Improvement of K levels to WNL. 3. Evidence of wound healing and no new areas of skin breakdown. Result Diagrams: 04/17/19 05:20 04/17/19 05:20 Additional Lab and Data: Laboratory Results - last 24 hr 04/14/19 04/14/19 04/14/19 07:26 07:26 16:20 WBC 11.8 H RBC 2.56 L Hgb 7.4 L Hct 23 L MCV 88 MCH 29 MCHC 33 RDW 23 H Plt Count 236 MPV 8.2 Neut % (Auto) 72.6 Lymph % (Auto) 11.0 [place] % (Auto) 12.4 Eos % (Auto) 3.1 Baso % (Auto) 0.9 Absolute Neuts (auto) 8.6 H Absolute Lymphs (auto) 1.3 Absolute Monos (auto) 1.5 H Absolute Eos (auto) 0.4 Absolute Basos (auto) 0.1 Absolute Nucleated RBC 0.0 Nucleated RBC % 0.1 Hem Pathologist Commnt Sodium 140 Potassium 5.5 H Chloride 111 Carbon Dioxide 21 L Anion Gap 8 BUN 80 H Creatinine 2.07 H Est GFR ( Amer) 38.3 Est GFR (Non-Af Amer) 31.6 BUN/Creatinine Ratio 38.6 H Glucose 102 H Calcium 10.5 H C-Reactive Protein 226.12 H B-Natriuretic Peptide Urine Color Yellow Urine Appearance Cloudy Urine pH 5.0 Ur Specific [place] 1.016 Urine Protein Negative Urine Ketones Negative Urine Blood 2+ A Urine Nitrate Negative Urine Bilirubin Negative Urine Urobilinogen Negative Ur Leukocyte Esterase 3+ A Urine WBC (Auto) 3+(>20/hpf) A Urine RBC (Auto) 3+(>10/hpf) A Urine Bacteria 1+ A Urine Glucose Negative 04/14/19 16:24 WBC RBC Hgb Hct MCV MCH MCHC RDW Plt Count MPV Neut % (Auto) Lymph % (Auto) [place] % (Auto) Eos % (Auto) Baso % (Auto) Absolute Neuts (auto) Absolute Lymphs (auto) Absolute Monos (auto) Absolute Eos (auto) Absolute Basos (auto) Absolute Nucleated RBC Nucleated RBC % Hem Pathologist Commnt Sodium Potassium Chloride Carbon Dioxide Anion Gap BUN Creatinine Est GFR ( Amer) Est GFR (Non-Af Amer) BUN/Creatinine Ratio Glucose Calcium C-Reactive Protein B-Natriuretic Peptide 258 H Urine Color Urine Appearance Urine pH Ur Specific [place] Urine Protein Urine Ketones Urine Blood Urine Nitrate Urine Bilirubin Urine Urobilinogen Ur Leukocyte Esterase Urine WBC (Auto) Urine RBC (Auto) Urine Bacteria Urine Glucose Microbiology and Other Data: Microbiology 04/14/19 16:20 Urine Culture - Final Urine Julissa Albicans Normal Fabby Diagnostic Imagin. Exam Date: 02/11/19 - VL ANK/BRACHIAL INDICES FINDINGS: The ankle brachial index on the right was 0.39 and on the left was 0.80. The ankle-brachial indices on the prior study were 0.93 and 0.91 respectively. There is monophasic flow within the right posterior tibial artery and monophasic flow within the right dorsalis pedis artery. There is biphasic flow within the left posterior tibial artery and biphasic flow within the left dorsalis pedis artery. IMPRESSION: SIGNIFICANTLY REDUCED ANKLE-BRACHIAL INDICES AND WAVEFORMS MORE SEVERE IN THE RIGHT LOWER EXTREMITY. CONSIDER A CT ANGIOGRAM OF THE AORTA AND LOWER EXTREMITIES FOR FURTHER EVALUATION. 2. Exam Date: 02/11/19 - MRI LOWER EXTREMITY RIGHT W/O IMPRESSION: SOFT TISSUE SWELLING AND SOFT TISSUE ULCER, NO SPECIFIC EVIDENCE FOR OSTEOMYELITIS. Assess/Plan/Problems-Billing Assessment: 73 yo male PMH 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 Transferred from [facility] 04/13 for sepsis 2/2 klebsiella CAUTI. - Patient Problems (1) Catheter-associated urinary tract infection Current Visit: No Status: Acute Code(s): T83.511A - I/I REACT D/T INDWELLING URETHRAL CATHETER, INIT; N39.0 - URINARY TRACT INFECTION, SITE NOT SPECIFIED SNOMED Code(s): 392319944 Comment: Urine culture positive for pseudomonas and klebsiella- 75,000-100, 000 CFU. Continue zosyn for next 2 days-as per d/w Dr. Hebert -last dose on 04/19/19 night Catheter was changed 04/14/19. appreciate ID consult sepsis at admission-resolved (2) Chronic pain Current Visit: No Status: Acute Code(s): G89.29 - OTHER CHRONIC PAIN SNOMED Code(s): 01673494 Comment: - Continue levorphanol (3) DNR (do not resuscitate) Current Visit: No Status: Acute (4) DVT prophylaxis Current Visit: No Status: Acute Code(s): BNO0374 - SNOMED Code(s): 474825797 Comment: HSQ (5) Pressure ulcer of sacral region, stage 3 Current Visit: No Status: Acute Code(s): L89.153 - PRESSURE ULCER OF SACRAL REGION, STAGE 3 SNOMED Code(s): 169375938 Comment: Pressure ulcer over ischium. Overall improving per report. He was initially hospitalized in [place] secondary to infected decubitus. wound care consult appreciated (6) Seizures Current Visit: No Status: Acute Code(s): R56.9 - UNSPECIFIED CONVULSIONS SNOMED Code(s): 02316079 Comment: Pt diagnosed with seizures during admission in [place]-? secondary to linezolid. Cont on antiepileptics. no observed seizures Continue to monitor. May need neuro evaluation if any concerns for seizure. (7) Anemia Current Visit: No Status: Chronic Code(s): D64.9 - ANEMIA, UNSPECIFIED SNOMED Code(s): 043794402 Comment: H/H much lower than in 01/2019 . Likely anemia related to his severe acute illness over the last 2 months and iron studies consistent with ACD. transfused 1 u PRBC on 04/16/19 will not do bloodwork tomorrow to minimize blood loss (8) CKD (chronic kidney disease), stage III Current Visit: No Status: Chronic Priority: High Code(s): N18.3 - CHRONIC KIDNEY DISEASE, STAGE 3 (MODERATE) SNOMED Code(s): 996322974 Comment: Baseline creatinine difficult to determine but likely around 1.5. Elevated at admission (likely secondary to severe acute illness over last 2 months) but very slowly trending down. K elevated . Patiromer did not change the potassium level significantly. Placed pt on K low diet. (9) HTN (hypertension) Current Visit: No Status: Chronic Code(s): I10 - ESSENTIAL (PRIMARY) HYPERTENSION SNOMED Code(s): 28459555 Comment: Pt diagnosed with PRESS during hospitalization in [place]. BP has been stable Continue amlodipine coreg 12.5mg BID continue cardura continue isordil (10) Neurogenic bladder Current Visit: No Status: Chronic Priority: High Code(s): N31.9 - NEUROMUSCULAR DYSFUNCTION OF BLADDER, UNSPECIFIED SNOMED Code(s): 492301199 Comment: - Fischer care; Fischer changed due to UTI this hospital stay Status and Disposition: medicine inpatient. awaiting PMRU eval for possible transfer back
--- NOTE | 2019-04-18 08:45 | PN ---
Subjective Date of Service: 04/18/19 Interval History: HD 5 on 04/18 73 M PMH paraplegia from lumbar ependymoma tumor/resections, neurogenic bladder , chronic sacral wounds, s/p colostomy for fecal incontinence, CAD, CKDIII, with recent 7 week hospitalization at [place] for infected ischium wound c/b seizures (attributed to linezolid), PRES and ARF, sent to [facility] for rehab but readmitted to hospital 04/13 for sepsis 2/2 klebsiella CAUTI. VSS overnight, no acute issues This morning: Sleepy but pleasant, at bedside, c/o "total body pain" and reports his home medications were lowered. Otherwise eager to trial eating , willing to work with PT. Family History: Unchanged from Admission Social History: Unchanged from Admission Past Medical History: Unchanged from Admission Objective Active Medications: Acetaminophen (Tylenol Tab*) 650 mg PO Q6H PRN PRN Reason: MILD PAIN or TEMP > 100.4 Amlodipine Besylate (Norvasc Tab*) 10 mg PO DAILY [facility] Last Admin: 04/17/19 08:59 Dose: 10 mg Aspirin (Aspirin 81 Mg Chew Tab*) 81 mg PO DAILY [facility] Last Admin: 04/17/19 09:00 Dose: 81 mg Carvedilol (Coreg Tab*) 12.5 mg PO BID [facility] Last Admin: 04/17/19 21:31 Dose: 12.5 mg Cholecalciferol (Vitamin D Tab*) 1,000 units PO DAILY [facility] Last Admin: 04/17/19 08:58 Dose: 1,000 units Collagenase (Santyl 250 Units/Gm Oint*) 1 applic TOPICAL DAILY [facility] Last Admin: 04/17/19 09:03 Dose: 1 applic Cyanocobalamin (Vitamin B12 Tab*) 1,000 mcg PO DAILY [facility] Last Admin: 04/16/19 10:35 Dose: 1,000 mcg Docusate Sodium (Colace Cap*) 100 mg PO BID PRN PRN Reason: CONSTIPATION Doxazosin Mesylate (Cardura Tab*) 2 mg PO BEDTIME [facility] Last Admin: 04/17/19 21:31 Dose: 2 mg Ferrous Gluconate (Fergon Tab*) 324 mg PO DAILY [facility] Last Admin: 04/17/19 16:53 Dose: 324 mg Heparin Sodium (Porcine) (Heparin Vial(*)) 5,000 units SUBCUT Q8HR [facility] Last Admin: 04/18/19 06:28 Dose: 5,000 units Piperacillin Sod/Tazobactam (Sod 3.375 gm/ Sodium Chloride) 100 mls @ 25 mls/ hr IVPB Q8H [facility] Stop: 04/19/19 23:59 Last Admin: 04/18/19 06:26 Dose: 25 mls/hr Isosorbide Dinitrate (Isordil Tab*) 10 mg PO TID [facility] Last Admin: 04/17/19 21:31 Dose: 10 mg Levetiracetam (Keppra Tab*) 500 mg PO BID [facility] Last Admin: 04/17/19 21:31 Dose: 500 mg Levorphanol Tartrate (Levorphanol 2 Mg (Nf)) 1 mg PO Q12HR [facility] Last Admin: 04/17/19 21:45 Dose: 1 mg Magnesium Hydroxide (Milk Of Magnesia Liq*) 30 ml PO Q6H PRN PRN Reason: CONSTIPATION Pantoprazole Sodium (Protonix Tab*) 40 mg PO BID [facility] Last Admin: 04/17/19 21:31 Dose: 40 mg Pharmacy Consult (Zosyn Per Pharmacy*) 1 note FOLLOW UP .ZOSYN PER PHARMACY [facility] Pregabalin (Lyrica Cap(*)) 50 mg PO TID [facility] Last Admin: 04/17/19 21:31 Dose: 50 mg Senna (Senokot 8.6 Mg Tab*) 2 tab PO BEDTIME PRN PRN Reason: CONSTIPATION Vital Signs - 8 hr 04/18/19 04/18/19 03:33 07:20 Temperature 97.5 F 98.4 F Pulse Rate 72 65 Respiratory 18 16 Rate Blood Pressure 138/54 129/58 (mmHg) O2 Sat by Pulse 97 97 Oximetry Oxygen Devices in Use Now: Nasal Cannula Appearance: Pleasant man, sleepy, sitting up in bed Eyes: No Scleral Icterus, PERRLA Ears/Nose/Mouth/Throat: NL Teeth, Lips, Gums Respiratory: Symmetrical Chest Expansion and Respiratory Effort, Clear to Auscultation Cardiovascular: NL Sounds; No Murmurs; No JVD, RRR Abdominal: NL Sounds; No Tenderness; No Distention, - - Ostomy Lymphatic: No Cervical Adenopathy Extremities: No Edema, - - Wounds wrapped Skin: No Rash or Ulcers Neurological: Alert and Oriented x 3, - - sleepy Lines/Tubes/Other Access: Clean, Dry and Intact Fischer - Nutrition: Malnutrition Diagnosis/Plan Malnutrition Assessment by Registered Dietitian: Malnutrition Assessment Clinical Characteristics Acute,Severe Malnutrition Assessment: Moderate muscle/fat loss Criteria Severe acute weight loss (15.9% over 1 1/2 months) Severe deficit in energy intake (<50% - essentially just 1 to 2 servings Boost per day) Malnutrition Assessment: Ensure enlive 3 times daily (350 kcals, 20 gms Interventions protein each) [place] diet (regular at present) Selection of menu to maximize tolerance/ acceptance Malnutrition Assessment: Goals 1. Improved oral intake to >75% to support wound healing, maintenance of lean body mass, adequate hydration w/o contributing to undesirable weight gain. 2. Improvement of K levels to WNL. 3. Evidence of wound healing and no new areas of skin breakdown. Result Diagrams: 04/17/19 05:20 04/17/19 05:20 Microbiology and Other Data: Microbiology 04/14/19 16:20 Urine Culture - Final Urine Julissa Albicans Normal Fabby Assess/Plan/Problems-Billing Assessment: 73 M PM paraplegia from lumbar ependymoma tumor/resections, neurogenic bladder , chronic sacral wounds, s/p colostomy for fecal incontinence, CAD, CKDIII, with recent 7 week hospitalization at [place] for infected ischium wound c/b seizures (attributed to linezolid), PRES and ARF, sent to [facility] for rehab but readmitted to hospital 04/13 for sepsis 2/2 klebsiella CAUTI. - Patient Problems (1) Catheter-associated urinary tract infection Current Visit: No Status: Acute Code(s): T83.511A - I/I REACT D/T INDWELLING URETHRAL CATHETER, INIT; N39.0 - URINARY TRACT INFECTION, SITE NOT SPECIFIED SNOMED Code(s): 434938381 Comment: - Urine culture positive for pseudomonas and klebsiella- 75,000-100,000 CFU. - Continue zosyn per d/w Dr. Hebert -last dose on 04/19/19 night - Catheter was changed 04/14/19. - Sepsis resolved (2) Anemia Current Visit: No Status: Chronic Code(s): D64.9 - ANEMIA, UNSPECIFIED SNOMED Code(s): 921369566 Comment: - H/H much lower than in 01/2019 . Likely anemia related to his severe acute illness over the last 2 months and iron studies consistent with ACD. - Transfused 1 u PRBC on 04/16/19 - will not do bloodwork tomorrow to minimize blood loss (3) Seizures Current Visit: No Status: Acute Code(s): R56.9 - UNSPECIFIED CONVULSIONS SNOMED Code(s): 76441481 Comment: - Pt diagnosed with seizures during admission in [place]-? secondary to linezolid. Cont on antiepileptics. - No observed seizures - Continue to monitor. May need neuro evaluation if any concerns for seizure. (4) HTN (hypertension) Current Visit: No Status: Chronic Code(s): I10 - ESSENTIAL (PRIMARY) HYPERTENSION SNOMED Code(s): 71566547 Comment: - Pt diagnosed with PRESS during hospitalization in [place]. BP has been stable - Continue amlodipine 10, Cardura, Coreg 12.5 BID, Isordil (5) Pressure ulcer of sacral region, stage 3 Current Visit: No Status: Acute Code(s): L89.153 - PRESSURE ULCER OF SACRAL REGION, STAGE 3 SNOMED Code(s): 934846320 Comment: - Pressure ulcer over ischium. Overall improving per report. He was initially hospitalized in [place] secondary to infected decubitus. - Wound care consult appreciated (6) CAD (coronary artery disease) Current Visit: No Status: Chronic Code(s): I25.10 - ATHSCL HEART DISEASE OF [place] CORONARY ARTERY W/O ANG PCTRS SNOMED Code(s): 49906478 Comment: - Continue ASA, coreg and isordil. (7) CKD (chronic kidney disease), stage III Current Visit: No Status: Chronic Priority: High Code(s): N18.3 - CHRONIC KIDNEY DISEASE, STAGE 3 (MODERATE) SNOMED Code(s): 292644197 Comment: - Baseline creatinine difficult to determine but likely around 1.5. - Elevated at admission (likely secondary to severe acute illness over last 2 months) but very slowly trending down. K elevated not responsive to patiromer - Low K diet (8) Chronic back pain Current Visit: No Status: Chronic Code(s): M54.9 - DORSALGIA, UNSPECIFIED; G89.29 - OTHER CHRONIC PAIN SNOMED Code(s): 445107064 Comment: - Secondary to ependymoma. - Continue reduced dose lyrica and increase levorphanol. (9) MATY (obstructive sleep apnea) Current Visit: No Status: Chronic Code(s): G47.33 - OBSTRUCTIVE SLEEP APNEA (ADULT) (PEDIATRIC) SNOMED Code(s): 92365895 Comment: - Home BIPAP (10) Paraplegia Current Visit: No Status: Chronic Code(s): G82.20 - PARAPLEGIA, UNSPECIFIED SNOMED Code(s): 36512631 Comment: - 2/2 to Ependyoma (dx in his 20s) - PT/OT, working with home care coord to get home hospital bed and PMRU for home teaching s/p d/c (11) DVT prophylaxis Current Visit: No Status: Acute Code(s): CZV4877 - SNOMED Code(s): 218642591 Comment: - HSQ (12) DNR (do not resuscitate) Current Visit: No Status: Acute Status and Disposition: Possibly to PMRU on Saturday 04/21
[2019-04-18] MEDS: Cholecalciferol TAB* 1000 UNITS PO SCH (10:43)
[2019-04-18] MEDS: Carvedilol TAB* 6.25 MG PO SCH ×2 (10:43→20:47)
[2019-04-18] MEDS: Pantoprazole TAB * 40 MG TAB PO SCH ×2 (10:43→20:47)
[2019-04-18] MEDS: amLODIPine TAB* 5 MG PO SCH (10:44)
[2019-04-18] MEDS: Cyanocobalamin TAB* 500 MCG PO SCH (10:44)
[2019-04-18] MEDS: Ferrous Gluconate TAB* 324 MG TAB PO SCH (10:44)
[2019-04-18] MEDS: Pregabalin CAP(*) 50 MG PO SCH ×3 (10:45→20:48)
[2019-04-18] MEDS: Isosorbide Dinitrate TAB* 10 MG PO SCH ×3 (10:45→20:47)
[2019-04-18] MEDS: levETIRAcetam TAB* 500 MG PO SCH ×2 (10:45→20:46)
[2019-04-18] MEDS: Aspirin 81 mg CHEW TAB* 81 MG TAB.CHEW PO SCH (10:45)
[2019-04-18] MEDS: LEVORPHANOL 2 MG PO SCH ×3 (11:53→20:46)
[2019-04-18] MEDS: Collagenase 250 UNITS/GM OINT* 1 APPLIC OINT TOPICAL SCH (16:20)
[2019-04-18] MEDS: Acetaminophen TAB* 325 MG PO PRN (16:49)
[2019-04-18] MEDS: Doxazosin TAB* 2 MG PO SCH (20:46)
[2019-04-19] MEDS: ZOSYN 3.375 GM Q8H per EXTENDED INFUSION IVPB SCH ×6 (04:43→23:03)
[2019-04-19] MEDS: Heparin VIAL(*) 5000 UNITS/ML VIAL (FIVE THOUSAND) SUBCUT SCH ×3 (05:34→21:50)
--- NOTE | 2019-04-19 06:44 | PN ---
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 VSS overnight, no acute issues Labs: None This morning, sleeping in bed, spoke with at bedside, she felt pain still a big issue throughout the day, we discuss trading off pain control with wakefulness and she is aware he may be more sleepy if we increase his pain meds and she feels worth the trade off. Pt is resting at this time, easily rouses during my exam, with no complaints. Tolerating diet, some diarrhea in ostomy, clear urine in arriaga bag from [facility]. Family History: Unchanged from Admission Social History: Unchanged from Admission Past Medical History: Unchanged from Admission Objective Active Medications: Acetaminophen (Tylenol Tab*) 650 mg PO Q6H PRN PRN Reason: MILD PAIN or TEMP > 100.4 Last Admin: 04/18/19 16:49 Dose: 650 mg Amlodipine Besylate (Norvasc Tab*) 10 mg PO DAILY [facility] Last Admin: 04/18/19 10:44 Dose: 10 mg Aspirin (Aspirin 81 Mg Chew Tab*) 81 mg PO DAILY [facility] Last Admin: 04/18/19 10:45 Dose: 81 mg Carvedilol (Coreg Tab*) 12.5 mg PO BID [facility] Last Admin: 04/18/19 20:47 Dose: 12.5 mg Cholecalciferol (Vitamin D Tab*) 1,000 units PO DAILY [facility] Last Admin: 04/18/19 10:43 Dose: 1,000 units Collagenase (Santyl 250 Units/Gm Oint*) 1 applic TOPICAL DAILY [facility] Last Admin: 04/18/19 16:20 Dose: 1 applic Cyanocobalamin (Vitamin B12 Tab*) 1,000 mcg PO DAILY [facility] Last Admin: 04/18/19 10:44 Dose: 1,000 mcg Docusate Sodium (Colace Cap*) 100 mg PO BID PRN PRN Reason: CONSTIPATION Doxazosin Mesylate (Cardura Tab*) 2 mg PO BEDTIME [facility] Last Admin: 04/18/19 20:46 Dose: 2 mg Ferrous Gluconate (Fergon Tab*) 324 mg PO DAILY [facility] Last Admin: 04/18/19 10:44 Dose: 324 mg Heparin Sodium (Porcine) (Heparin Vial(*)) 5,000 units SUBCUT Q8HR [facility] Last Admin: 04/19/19 05:34 Dose: 5,000 units Piperacillin Sod/Tazobactam (Sod 3.375 gm/ Sodium Chloride) 100 mls @ 25 mls/ hr IVPB Q8H [facility] Stop: 04/19/19 23:59 Last Admin: 04/19/19 04:43 Dose: 25 mls/hr Isosorbide Dinitrate (Isordil Tab*) 10 mg PO TID [facility] Last Admin: 04/18/19 20:47 Dose: 10 mg Levetiracetam (Keppra Tab*) 500 mg PO BID [facility] Last Admin: 04/18/19 20:46 Dose: 500 mg Levorphanol Tartrate (Levorphanol 2 Mg (Nf)) 2 mg PO Q12HR [facility] Last Admin: 04/18/19 20:46 Dose: 2 mg Magnesium Hydroxide (Milk Of Magnesia Liq*) 30 ml PO Q6H PRN PRN Reason: CONSTIPATION Pantoprazole Sodium (Protonix Tab*) 40 mg PO BID [facility] Last Admin: 04/18/19 20:47 Dose: 40 mg Pharmacy Consult (Zosyn Per Pharmacy*) 1 note FOLLOW UP .ZOSYN PER PHARMACY [facility] Pregabalin (Lyrica Cap(*)) 50 mg PO TID [facility] Last Admin: 04/18/19 20:48 Dose: 50 mg Senna (Senokot 8.6 Mg Tab*) 2 tab PO BEDTIME PRN PRN Reason: CONSTIPATION Vital Signs - 8 hr 04/18/19 04/18/19 04/19/19 22:57 23:00 03:00 Temperature 98.7 F 97.9 F Pulse Rate 74 66 Respiratory 14 16 18 Rate Blood Pressure 132/50 128/49 (mmHg) O2 Sat by Pulse 96 97 Oximetry Oxygen Devices in Use Now: Nasal Cannula Appearance: Resting man in NAD Eyes: No Scleral Icterus, PERRLA Ears/Nose/Mouth/Throat: NL Teeth, Lips, Gums Neck: NL Appearance and Movements; NL JVP Respiratory: Symmetrical Chest Expansion and Respiratory Effort, Clear to Auscultation Cardiovascular: RRR Abdominal: NL Sounds; No Tenderness; No Distention, No Hepatosplenomegaly, - - Ostomy CDI Lymphatic: No Cervical Adenopathy Extremities: No Edema Skin: No Rash or Ulcers Neurological: - - Sleeping, rouses but no formal orientation done Lines/Tubes/Other Access: Clean, Dry and Intact Arriaga - SP - Nutrition: Malnutrition Diagnosis/Plan Malnutrition Assessment by Registered Dietitian: Malnutrition Assessment See prior notes Result Diagrams: 04/17/19 05:20 04/17/19 05:20 Microbiology and Other Data: Microbiology 04/14/19 16:20 Urine Culture - Final Urine Julissa Albicans Normal Fabby Assess/Plan/Problems-Billing Assessment: 73 M PMH paraplegia from lumbar ependymoma tumor/resections, neurogenic bladder , chronic sacral wounds, s/p colostomy for fecal incontinence, CAD, CKDIII, with recent 7 week hospitalization at [place] for infected ischium wound c/b seizures (attributed to linezolid), PRES and ARF, sent to [facility] for rehab but readmitted to hospital 04/13 for sepsis 2/2 klebsiella CAUTI. - Patient Problems (1) Catheter-associated urinary tract infection Current Visit: No Status: Acute Code(s): T83.511A - I/I REACT D/T INDWELLING URETHRAL CATHETER, INIT; N39.0 - URINARY TRACT INFECTION, SITE NOT SPECIFIED SNOMED Code(s): 014622529 Comment: - Urine culture positive for pseudomonas and klebsiella- 75,000-100,000 CFU. - Continue zosyn per d/w Dr. Hebert -last dose on 04/19/19 night - Catheter was changed 04/14/19. - Sepsis resolved (2) Anemia Current Visit: No Status: Chronic Code(s): D64.9 - ANEMIA, UNSPECIFIED SNOMED Code(s): 505745787 Comment: - H/H much lower than in 01/2019 . Likely anemia related to his severe acute illness over the last 2 months and iron studies consistent with ACD. - Transfused 1 u PRBC on 04/16/19 - will not do bloodwork tomorrow to minimize blood loss (3) Seizures Current Visit: No Status: Acute Code(s): R56.9 - UNSPECIFIED CONVULSIONS SNOMED Code(s): 87712217 Comment: - Pt diagnosed with seizures during admission in [place]-? secondary to linezolid. Cont on antiepileptics. - No observed seizures - Continue to monitor. May need neuro evaluation if any concerns for seizure. (4) HTN (hypertension) Current Visit: No Status: Chronic Code(s): I10 - ESSENTIAL (PRIMARY) HYPERTENSION SNOMED Code(s): 68347803 Comment: - Pt diagnosed with PRESS during hospitalization in [place]. BP has been stable - Continue amlodipine 10, Cardura, Coreg 12.5 BID, Isordil (5) Pressure ulcer of sacral region, stage 3 Current Visit: No Status: Acute Code(s): L89.153 - PRESSURE ULCER OF SACRAL REGION, STAGE 3 SNOMED Code(s): 029371719 Comment: - Pressure ulcer over ischium. Overall improving per report. He was initially hospitalized in [place] secondary to infected decubitus. - Wound care consult appreciated (6) CAD (coronary artery disease) Current Visit: No Status: Chronic Code(s): I25.10 - ATHSCL HEART DISEASE OF [place] CORONARY ARTERY W/O ANG PCTRS SNOMED Code(s): 27013546 Comment: - Continue ASA, coreg and isordil. (7) CKD (chronic kidney disease), stage III Current Visit: No Status: Chronic Priority: High Code(s): N18.3 - CHRONIC KIDNEY DISEASE, STAGE 3 (MODERATE) SNOMED Code(s): 568877970 Comment: - Baseline creatinine difficult to determine but likely around 1.5. - Elevated at admission (likely secondary to severe acute illness over last 2 months) but very slowly trending down. K elevated not responsive to patiromer - Low K diet (8) Chronic back pain Current Visit: No Status: Chronic Code(s): M54.9 - DORSALGIA, UNSPECIFIED; G89.29 - OTHER CHRONIC PAIN SNOMED Code(s): 001981243 Comment: - Secondary to ependymoma. - Continue lyrica 50 TID and increase levorphanol to home dose of 2mg q 8 hr (9) MATY (obstructive sleep apnea) Current Visit: No Status: Chronic Code(s): G47.33 - OBSTRUCTIVE SLEEP APNEA (ADULT) (PEDIATRIC) SNOMED Code(s): 41663183 Comment: - Home BIPAP (10) Paraplegia Current Visit: No Status: Chronic Code(s): G82.20 - PARAPLEGIA, UNSPECIFIED SNOMED Code(s): 66448248 Comment: - 2/2 to Ependyoma (dx in his 20s) - PT/OT, working with home care coord to get home hospital bed and PMRU for home teaching s/p d/c (11) DVT prophylaxis Current Visit: No Status: Acute Code(s): EIT5231 - SNOMED Code(s): 544535117 Comment: - HSQ (12) DNR (do not resuscitate) Current Visit: No Status: Acute Status and Disposition: Possibly to PMRU on Saturday 04/21
[2019-04-19] MEDS: Carvedilol TAB* 6.25 MG PO SCH ×2 (09:33→21:47)
[2019-04-19] MEDS: Isosorbide Dinitrate TAB* 10 MG PO SCH ×4 (09:34→21:48)
[2019-04-19] MEDS: Pregabalin CAP(*) 50 MG PO SCH ×4 (09:34→21:49)
[2019-04-19] MEDS: LEVORPHANOL 2 MG PO SCH ×4 (09:34→21:48)
[2019-04-19] MEDS: amLODIPine TAB* 5 MG PO SCH (09:35)
[2019-04-19] MEDS: Cyanocobalamin TAB* 500 MCG PO SCH (09:35)
[2019-04-19] MEDS: Ferrous Gluconate TAB* 324 MG TAB PO SCH (09:36)
[2019-04-19] MEDS: Cholecalciferol TAB* 1000 UNITS PO SCH (09:36)
[2019-04-19] MEDS: Pantoprazole TAB * 40 MG TAB PO SCH ×2 (09:36→21:48)
[2019-04-19] MEDS: Aspirin 81 mg CHEW TAB* 81 MG TAB.CHEW PO SCH (09:36)
[2019-04-19] MEDS: levETIRAcetam TAB* 500 MG PO SCH ×2 (09:37→21:49)
[2019-04-19] MEDS: Collagenase 250 UNITS/GM OINT* 1 APPLIC OINT TOPICAL SCH (12:40)
[2019-04-19] MEDS: Doxazosin TAB* 2 MG PO SCH (21:48)
[2019-04-20] MEDS: Heparin VIAL(*) 5000 UNITS/ML VIAL (FIVE THOUSAND) SUBCUT SCH ×3 (06:16→20:32)
[2019-04-20] MEDS: LEVORPHANOL 2 MG PO SCH ×3 (06:16→21:01)
--- NOTE | 2019-04-20 07:24 | PN ---
Subjective Date of Service: 04/20/19 Interval History: HD 8 on 04/20 73 M PMH paraplegia from lumbar ependymoma tumor/resections, neurogenic bladder , chronic sacral wounds, s/p colostomy for fecal incontinence, CAD, CKDIII, with recent 7 week hospitalization at [place] for infected ischium wound c/b seizures (attributed to linezolid), PRES and ARF, sent to [facility] for rehab but readmitted to hospital 04/13 for sepsis 2/2 klebsiella CAUTI. VSS overnight no acute events Labs stable This morning, some leaking from urinary tube but no other symptoms, reports pain better controlled compared to yesterday. No other complaints, did eat a large breakfast. Otherwise pleasant and well, looking forward to PMRU tomorrow. Family History: Unchanged from Admission Social History: Unchanged from Admission Past Medical History: Unchanged from Admission Objective Active Medications: Acetaminophen (Tylenol Tab*) 650 mg PO Q6H PRN PRN Reason: MILD PAIN or TEMP > 100.4 Last Admin: 04/18/19 16:49 Dose: 650 mg Amlodipine Besylate (Norvasc Tab*) 10 mg PO DAILY [facility] Last Admin: 04/19/19 09:35 Dose: 10 mg Aspirin (Aspirin 81 Mg Chew Tab*) 81 mg PO DAILY [facility] Last Admin: 04/19/19 09:36 Dose: 81 mg Carvedilol (Coreg Tab*) 12.5 mg PO BID [facility] Last Admin: 04/19/19 21:47 Dose: 12.5 mg Cholecalciferol (Vitamin D Tab*) 1,000 units PO DAILY [facility] Last Admin: 04/19/19 09:36 Dose: 1,000 units Collagenase (Santyl 250 Units/Gm Oint*) 1 applic TOPICAL DAILY [facility] Last Admin: 04/19/19 12:40 Dose: 1 applic Cyanocobalamin (Vitamin B12 Tab*) 1,000 mcg PO DAILY [facility] Last Admin: 04/19/19 09:35 Dose: 1,000 mcg Docusate Sodium (Colace Cap*) 100 mg PO BID PRN PRN Reason: CONSTIPATION Doxazosin Mesylate (Cardura Tab*) 2 mg PO BEDTIME [facility] Last Admin: 04/19/19 21:48 Dose: 2 mg Ferrous Gluconate (Fergon Tab*) 324 mg PO DAILY [facility] Last Admin: 04/19/19 09:36 Dose: 324 mg Heparin Sodium (Porcine) (Heparin Vial(*)) 5,000 units SUBCUT Q8HR [facility] Last Admin: 04/20/19 06:16 Dose: 5,000 units Isosorbide Dinitrate (Isordil Tab*) 10 mg PO TID [facility] Last Admin: 04/19/19 21:48 Dose: 10 mg Levetiracetam (Keppra Tab*) 500 mg PO BID [facility] Last Admin: 04/19/19 21:49 Dose: 500 mg Levorphanol Tartrate (Levorphanol 2 Mg (Nf)) 2 mg PO Q8HR [facility] Last Admin: 04/20/19 06:16 Dose: 2 mg Magnesium Hydroxide (Milk Of Magnesia Liq*) 30 ml PO Q6H PRN PRN Reason: CONSTIPATION Pantoprazole Sodium (Protonix Tab*) 40 mg PO BID [facility] Last Admin: 04/19/19 21:48 Dose: 40 mg Pharmacy Consult (Zosyn Per Pharmacy*) 1 note FOLLOW UP .ZOSYN PER PHARMACY [facility] Pregabalin (Lyrica Cap(*)) 50 mg PO TID [facility] Last Admin: 04/19/19 21:49 Dose: 50 mg Senna (Senokot 8.6 Mg Tab*) 2 tab PO BEDTIME PRN PRN Reason: CONSTIPATION Vital Signs - 8 hr 04/19/19 04/20/19 23:50 03:08 Temperature 97.8 F Pulse Rate 65 Respiratory 20 18 Rate Blood Pressure 137/54 (mmHg) O2 Sat by Pulse 97 Oximetry Oxygen Devices in Use Now: Nasal Cannula Appearance: No acute distress Eyes: No Scleral Icterus, PERRLA Neck: NL Appearance and Movements; NL JVP Respiratory: Symmetrical Chest Expansion and Respiratory Effort, Clear to Auscultation Cardiovascular: NL Sounds; No Murmurs; No JVD, RRR Abdominal: NL Sounds; No Tenderness; No Distention, No Hepatosplenomegaly, - - Ostomy Lymphatic: No Cervical Adenopathy Extremities: No Edema Skin: No Rash or Ulcers Neurological: Alert and Oriented x 3 Lines/Tubes/Other Access: Clean, Dry and Intact Fischer Result Diagrams: 04/20/19 07:35 04/20/19 07:35 Microbiology and Other Data: Microbiology 04/14/19 16:20 Urine Culture - Final Urine Julissa Albicans Normal Fabby Assess/Plan/Problems-Billing Assessment: 73 M PMH paraplegia from lumbar ependymoma tumor/resections, neurogenic bladder , chronic sacral wounds, s/p colostomy for fecal incontinence, CAD, CKDIII, with recent 7 week hospitalization at [place] for infected ischium wound c/b seizures (attributed to linezolid), PRES and ARF, sent to [facility] for rehab but readmitted to hospital 04/13 for sepsis 2/2 klebsiella CAUTI. - Patient Problems (1) Catheter-associated urinary tract infection Current Visit: No Status: Acute Code(s): T83.511A - I/I REACT D/T INDWELLING URETHRAL CATHETER, INIT; N39.0 - URINARY TRACT INFECTION, SITE NOT SPECIFIED SNOMED Code(s): 143011923 Comment: - Urine culture positive for pseudomonas and klebsiella- 75,000-100,000 CFU. - Completed Zosyn -last dose on 04/19/19 night - Catheter was changed 04/14/19. - Sepsis resolved (2) Anemia Current Visit: No Status: Chronic Code(s): D64.9 - ANEMIA, UNSPECIFIED SNOMED Code(s): 191457064 Comment: - H/H much lower than in 01/2019 . Likely anemia related to his severe acute illness over the last 2 months and iron studies consistent with ACD. - Transfused 1 u PRBC on 04/16/19 - Stable on 04/20 (3) Seizures Current Visit: No Status: Acute Code(s): R56.9 - UNSPECIFIED CONVULSIONS SNOMED Code(s): 77887489 Comment: - Pt diagnosed with seizures during admission in [place]-? secondary to linezolid or PRES. Pt has been being tapered and can be tapered further, in PRES can be tapered within one to two weeks, will go to 250mg for afternoon dose and then 250 BID x 1 week, then 250 QDay x1 week then stop - No observed seizures - Continue to monitor. May need neuro evaluation if any concerns for seizure. (4) HTN (hypertension) Current Visit: No Status: Chronic Code(s): I10 - ESSENTIAL (PRIMARY) HYPERTENSION SNOMED Code(s): 76612113 Comment: - Pt diagnosed with PRESS during hospitalization in [place]. BP has been stable - AED taper as above - Continue amlodipine 10, Cardura, Coreg 12.5 BID, Isordil (5) Pressure ulcer of sacral region, stage 3 Current Visit: No Status: Acute Code(s): L89.153 - PRESSURE ULCER OF SACRAL REGION, STAGE 3 SNOMED Code(s): 690753276 Comment: - Pressure ulcer over ischium. Overall improving per report. He was initially hospitalized in [place] secondary to infected decubitus. - Wound care consult appreciated (6) CAD (coronary artery disease) Current Visit: No Status: Chronic Code(s): I25.10 - ATHSCL HEART DISEASE OF [place] CORONARY ARTERY W/O ANG PCTRS SNOMED Code(s): 46503673 Comment: - Continue ASA, coreg and isordil. (7) CKD (chronic kidney disease), stage III Current Visit: No Status: Chronic Priority: High Code(s): N18.3 - CHRONIC KIDNEY DISEASE, STAGE 3 (MODERATE) SNOMED Code(s): 965853427 Comment: - Baseline creatinine difficult to determine but likely around 1.5. - Elevated at admission (likely secondary to severe acute illness over last 2 months) but very slowly trending down. K elevated not responsive to patiromer - Low K diet (8) Chronic back pain Current Visit: No Status: Chronic Code(s): M54.9 - DORSALGIA, UNSPECIFIED; G89.29 - OTHER CHRONIC PAIN SNOMED Code(s): 173350519 Comment: - Secondary to ependymoma. - Continue lyrica 50 TID and levorphanol at home dose of 2mg q 8 hr (9) MATY (obstructive sleep apnea) Current Visit: No Status: Chronic Code(s): G47.33 - OBSTRUCTIVE SLEEP APNEA (ADULT) (PEDIATRIC) SNOMED Code(s): 92154564 Comment: - Home BIPAP (10) Paraplegia Current Visit: No Status: Chronic Code(s): G82.20 - PARAPLEGIA, UNSPECIFIED SNOMED Code(s): 91460290 Comment: - 2/2 to Ependyoma (dx in his 20s) - PT/OT, working with home care coord to get home hospital bed and PMRU for home teaching s/p d/c (11) DVT prophylaxis Current Visit: No Status: Acute Code(s): UKB0433 - SNOMED Code(s): 267777666 Comment: - HSQ (12) DNR (do not resuscitate) Current Visit: No Status: Acute Status and Disposition: PMRU on Saturday 04/21
[2019-04-20 07:44] LABS: Hematocrit 25 % (42-52); Hemoglobin 8.2 g/dL (14.0-18.0); Mean Corpuscular HGB Conc 34 g/dL (31-36); Mean Corpuscular Hemoglobin 29 pg (27-31); Mean Corpuscular Volume 85 fL (80-94); Mean Platelet Volume 7.1 fL (7.4-10.4); Platelet Count 231 10^3/uL (150-450); Red Blood Count 2.87 10^6 /uL (4.18-5.48); Red Cell Distribution Width 21 % (10-15); White Blood Count 10.1 10^3/uL (3.5-10.8)
[2019-04-20 08:05] LABS: BUN/Creatinine Ratio 24.4 (8-20); Calcium 9.9 mg/dL (8.6-10.3); EGFR African American 62.7 (>60); EGFR Non-African American 51.8 (>60); Potassium 4.4 mmol/L (3.5-5.0)
[2019-04-20] MEDS: Cyanocobalamin TAB* 500 MCG PO SCH (10:25)
[2019-04-20] MEDS: Aspirin 81 mg CHEW TAB* 81 MG TAB.CHEW PO SCH (10:25)
[2019-04-20] MEDS: Ferrous Gluconate TAB* 324 MG TAB PO SCH (10:25)
[2019-04-20] MEDS: Pregabalin CAP(*) 50 MG PO SCH ×3 (10:26→20:32)
[2019-04-20] MEDS: Carvedilol TAB* 6.25 MG PO SCH ×2 (10:27→20:33)
[2019-04-20] MEDS: amLODIPine TAB* 5 MG PO SCH (10:27)
[2019-04-20] MEDS: Pantoprazole TAB * 40 MG TAB PO SCH ×2 (10:27→20:32)
[2019-04-20] MEDS: Cholecalciferol TAB* 1000 UNITS PO SCH (10:27)
[2019-04-20] MEDS: levETIRAcetam TAB* 500 MG PO SCH ×2 (10:27→20:33)
[2019-04-20] MEDS: Collagenase 250 UNITS/GM OINT* 1 APPLIC OINT TOPICAL SCH (10:29)
[2019-04-20] MEDS: Acetaminophen TAB* 325 MG PO PRN ×2 (10:41→19:59)
[2019-04-20] MEDS: Isosorbide Dinitrate TAB* 10 MG PO SCH ×3 (13:27→20:33)
--- NOTE | 2019-04-20 18:55 | DS ---
CC: Dr. Molly Griffiths * DISCHARGE SUMMARY: DATE OF ADMISSION: 04/13/19 ANTICIPATED DATE OF DISCHARGE: 04/21/19 PRIMARY CARE PROVIDER: Dr. Molly Griffiths, who the patient to follow up with in 1 to 2 weeks DISPOSITION AT THE TIME OF DISCHARGE: Stable to be discharged to [facility] unit. PRIMARY DIAGNOSES: Catheter-associated urinary tract infection and sepsis, resolved. SECONDARY DIAGNOSES: 1. 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 2. Neurogenic bladder and bowel, status post ostomy and Fischer catheter. 3. Chronic sacral, hip and heel wounds. 4. Coronary artery disease. 5. Chronic kidney disease stage 3. 6. Chronic pain. 7. Hypertension, recently complicated by posterior reversible encephalopathy or PRES. 8. Obstructive sleep apnea, on BiPAP. 9. Recent diagnosis of seizure disorder thought to be secondary to posterior reversible encephalopathy syndrome or medication related, currently on titrating down doses of Keppra. 10. Anemia. 11. Recent 7-week hospitalization prior to this hospitalization at [facility] for infected ischium wound complicated by seizures attributed to linezolid versus posterior reversible encephalopathy syndrome and acute renal failure, admitted to [facility] on 04/09/19 and readmitted to hospital on 04/13/19 for CAUTI. MEDICATIONS AT THE TIME OF DISCHARGE: 1. Acetaminophen 650 mg p.o. q.6 hours p.r.n. for pain. 2. Amlodipine 10 mg p.o. daily. 3. Aspirin 81 mg p.o. daily. 4. Carvedilol 12.5 mg p.o. b.i.d. 5. Vitamin D 1000 units p.o. daily. 6. Santyl ointment application topically as per wound care recommendations included in this packet. 7. Cyanocobalamin 1000 mg p.o. daily. 8. Docusate 100 mg p.o. b.i.d. 9. Doxazosin 2 mg p.o. q.h.s. 10. Ferrous gluconate 324 mg p.o. daily. 11. Isordil 10 mg p.o. t.i.d. 12. Keppra 250 mg p.o. b.i.d. for an additional 6 days status post discharge, then 250 mg daily for an additional 7 days after that, then stop. 13. Levorphanol 2 mg p.o. q.8 hours. 14. Lyrica 50 mg p.o. t.i.d. 15. Pantoprazole 40 mg p.o. b.i.d. 16. Senna 2 tabs p.o. q.h.s. 17. Cranberry tablet 1 tab p.o. daily. 18. Folic acid 0.5 mg p.o. daily. Medication changes on this hospitalization: Include the taper of Keppra has included per above, otherwise these medications reflect his recent discharge medications from [facility] when he was admitted to [facility] on 04/09/19. HISTORY OF PRESENT ILLNESS AND HOSPITAL COURSE: This is a 73-year-old male with a complex past medical history and as per above, but briefly paraplegic at baseline complicated by neurogenic bladder and bowel status post colostomy and Fischer catheter, not currently with suprapubic catheter as well as chronic wound , obstructive sleep apnea requiring nightly CPAP/BiPAP, CKD, CAD, recently hospitalized at [facility] for 7 weeks, being treated for sepsis with a complicated hospital course consisting of PRES and seizures thought to be from linezolid and worsening acute renal failure. The patient rehabbed enough to discharge to [facility] although his course in [facility] was complicated by fever, lethargy , and chills and thus he was referred back to the emergency room on 04/13/19 after he had fever, rigors and hypotension. In the ER, he was mildly febrile, but normotensive and tachycardic was determined to have a urinary tract infection and thought to have sepsis secondary to this and he was admitted to the hospital from 04/13/19 to 04/21/19, being treated for catheter-associated urinary tract infection and his hospital course by problem is as follows: 1. Sepsis. The patient was given fluid bolus and was treated broadly initially with vanc and Zosyn while urine cultures were pending, blood cultures were drawn and chest x-ray was done, although all culture data was negative with the exception of Klebsiella and Pseudomonas in urinary tract. 2. CAUTI. The patient was seen by Infectious Disease who recommended coverage with Zosyn for Pseudomonas and Klebsiella urinary tract infection associated with catheterization and treatment was completed on the evening of 04/19/19. The patient did very well and catheter was exchanged on 04/14/19. Blood cultures from 04/12/19 remained with no growth to date. 3. Recently diagnosed posterior reversible encephalopathy syndrome with hypertension. The patient is on significantly higher doses of blood pressure medications since his hospitalization at [facility] compared to when he initially had presented 8 weeks prior. His medications were continued and not adjusted and on discharge he should go on medications that he was currently being given in the hospital as he remained normotensive in the systolic 130s at goal. 4. Possible seizure disorder. This was thought to be secondary to PRES or linezolid as diagnosed by team at [facility] for PRES and seizure disorder as a drug side effect. It is appropriate to begin to taper Keppra, he is on 500 mg p.o. b.i.d. on admission and this was lowered to 250 mg b.i.d. on 04/20/19, a taper schedule is left as per guideline. 5. History of CKD. His renal function over the course of his hospitalization appears to be returning to baseline. He had no complications during this hospitalization. His medications are currently renally dosed. 6. CAD. His home medications aspirin and statin were continued. He is optimized from a secondary prevention standpoint. 7. Anemia. This is thought to be secondary to chronic disease and actually improved over the course of this hospitalization. He has no evidence of active or acute bleed. 8. Chronic pain. His levorphanol was lowered initially given his lethargy and sepsis, this was increased on 04/19/19 with good effect. The patient and his feel he is returning to baseline. 9. Chronic pressure wounds. Wound Care was consulted during this hospitalization and made specific recommendations, which are included in this packet under wound care. 10. Paraplegia status. The patient is to return to [facility] for several days of home teaching while the patient and his family prepare to take him home, they understand this has been a deviation from his baseline functioning status and that they will need increased help at home along with equipment such as a hospital bed and possible Laila lift, which can be arranged for them by [facility] care management. This plan was discussed with Case Management on 04/18/19 and plan is to return to [facility] on 04/21/19 for a brief education on how to use home equipment and to anticipate goals of care as he returns to home after his complicated hospital stays at both [facility] and [facility]. 11. DVT prophylaxis. The patient was placed on heparin subcu. 12. Diet. The patient is placed on low potassium diet given his acute renal failure and mildly high potassium on admission, it has resolved, although the patient continued to be counseled on low potassium foods given borderline renal function with known CKD at baseline. LABS AND STUDIES DONE DURING THIS HOSPITALIZATION: Labs on 04/20/19 show white blood cell count of 10.1, hemoglobin of 8.2, hematocrit of 25, and platelets of 231. BMP on 04/20/19 shows sodium 139, potassium 4.4, chloride 111, carbon dioxide 24, BUN 33, creatinine 1.35. Imaging was none. CONSULTANTS: Included Infectious Disease and Wound Care. ITEMS TO FOLLOW UP ON STATUS POST DISCHARGE: 1. Recently diagnosed seizure disorder, thought to be medication side effect versus PRES, please titrate down Keppra as per discharge summary instructions and informed the family this titration can be done safely at home as Keppra has a long half-life. 2. Medication reconciliation. The patient's medications appear to have changed drastically as a result of his hospitalization at [facility], ensure the patient and family have new prescriptions and old prescriptions were cancelled out. His current medications given in hospital have kept blood pressure within goal and he has been afebrile with improving labs. Plan of care was discussed with patient and family who agreed to return to [facility] on 04/21/19 for home teaching and while preparations are being made in the home for patient to continue his extensive rehabilitation from complicated stay at [facility]. They have no further questions and are in agreeance with the plan. This discharge summary is a distillation of a 8-day hospitalization. If there are any specific questions, please refer to the medical chart directly or reach out to me, my cell phone is [phone]. A physical exam is done on 04/20/19. TIME SPENT: 60 minutes was spent on planning of this discharge with over half of that spent directly at the bedside of patient providing direct patient care. On day of discharge, the patient is tolerating diet and voiding freely, he and family have no further questions. [id number]/[facility] #: [id number] VALERI
[2019-04-20] MEDS: Doxazosin TAB* 2 MG PO SCH (20:33)
[2019-04-21] MEDS: LEVORPHANOL 2 MG PO SCH ×3 (05:42→21:49)
[2019-04-21] MEDS: Heparin VIAL(*) 5000 UNITS/ML VIAL (FIVE THOUSAND) SUBCUT SCH ×3 (05:42→20:31)
[2019-04-21] MEDS: Cholecalciferol TAB* 1000 UNITS PO SCH (07:59)
[2019-04-21] MEDS: Pantoprazole TAB * 40 MG TAB PO SCH ×2 (07:59→20:26)
[2019-04-21] MEDS: Cyanocobalamin TAB* 500 MCG PO SCH (08:00)
[2019-04-21] MEDS: Ferrous Gluconate TAB* 324 MG TAB PO SCH (08:01)
[2019-04-21] MEDS: Carvedilol TAB* 6.25 MG PO SCH ×2 (08:01→20:26)
[2019-04-21] MEDS: levETIRAcetam TAB* 500 MG PO SCH ×2 (08:02→20:26)
[2019-04-21] MEDS: amLODIPine TAB* 5 MG PO SCH (08:02)
[2019-04-21] MEDS: Pregabalin CAP(*) 50 MG PO SCH ×3 (08:04→20:27)
[2019-04-21] MEDS: Aspirin 81 mg CHEW TAB* 81 MG TAB.CHEW PO SCH (08:04)
[2019-04-21] MEDS: Isosorbide Dinitrate TAB* 10 MG PO SCH ×3 (08:04→20:27)
[2019-04-21] MEDS: Collagenase 250 UNITS/GM OINT* 1 APPLIC OINT TOPICAL SCH ×2 (14:54→14:55)
--- NOTE | 2019-04-21 15:22 | PN ---
Subjective Date of Service: 04/21/19 Interval History: reports arriaga leaking continuously around tubing for 3 days. She is concerned that UTI is returning. Dr. Castaneda is patient's urologist. declines having arriaga changed to larger size by nurse. Eating well, otherwise ready to return to rehab. Family History: Unchanged from Admission Social History: Unchanged from Admission Past Medical History: Unchanged from Admission Objective Active Medications: Acetaminophen (Tylenol Tab*) 650 mg PO Q6H PRN PRN Reason: MILD PAIN or TEMP > 100.4 Last Admin: 04/20/19 19:59 Dose: 650 mg Amlodipine Besylate (Norvasc Tab*) 10 mg PO DAILY [facility] Last Admin: 04/21/19 08:02 Dose: 10 mg Aspirin (Aspirin 81 Mg Chew Tab*) 81 mg PO DAILY [facility] Last Admin: 04/21/19 08:04 Dose: 81 mg Carvedilol (Coreg Tab*) 12.5 mg PO BID [facility] Last Admin: 04/21/19 08:01 Dose: 12.5 mg Cholecalciferol (Vitamin D Tab*) 1,000 units PO DAILY [facility] Last Admin: 04/21/19 07:59 Dose: 1,000 units Collagenase (Santyl 250 Units/Gm Oint*) 1 applic TOPICAL DAILY [facility] Last Admin: 04/21/19 14:55 Dose: 1 applic Cyanocobalamin (Vitamin B12 Tab*) 1,000 mcg PO DAILY [facility] Last Admin: 04/21/19 08:00 Dose: 1,000 mcg Docusate Sodium (Colace Cap*) 100 mg PO BID PRN PRN Reason: CONSTIPATION Doxazosin Mesylate (Cardura Tab*) 2 mg PO BEDTIME [facility] Last Admin: 04/20/19 20:33 Dose: 2 mg Ferrous Gluconate (Fergon Tab*) 324 mg PO DAILY [facility] Last Admin: 04/21/19 08:01 Dose: 324 mg Heparin Sodium (Porcine) (Heparin Vial(*)) 5,000 units SUBCUT Q8HR [facility] Last Admin: 04/21/19 15:16 Dose: 5,000 units Isosorbide Dinitrate (Isordil Tab*) 10 mg PO TID [facility] Last Admin: 04/21/19 08:04 Dose: 10 mg Levetiracetam (Keppra Tab*) 250 mg PO BID [facility] Last Admin: 04/21/19 08:02 Dose: 250 mg Levorphanol Tartrate (Levorphanol 2 Mg (Nf)) 2 mg PO Q8HR [facility] Last Admin: 04/21/19 15:16 Dose: 2 mg Magnesium Hydroxide (Milk Of Magnesia Liq*) 30 ml PO Q6H PRN PRN Reason: CONSTIPATION Pantoprazole Sodium (Protonix Tab*) 40 mg PO BID [facility] Last Admin: 04/21/19 07:59 Dose: 40 mg Pregabalin (Lyrica Cap(*)) 50 mg PO TID [facility] Last Admin: 04/21/19 15:16 Dose: 50 mg Senna (Senokot 8.6 Mg Tab*) 2 tab PO BEDTIME PRN PRN Reason: CONSTIPATION Vital Signs - 8 hr 04/21/19 04/21/19 04/21/19 08:00 08:04 10:52 Temperature 36.6 C Pulse Rate 81 Respiratory 16 20 18 Rate Blood Pressure 138/60 (mmHg) O2 Sat by Pulse 93 Oximetry 04/21/19 04/21/19 12:00 15:16 Temperature 36.4 C Pulse Rate 65 Respiratory 16 20 Rate Blood Pressure 121/59 (mmHg) O2 Sat by Pulse 96 Oximetry Oxygen Devices in Use Now: Nasal Cannula Appearance: alert, no distress Neck: NL Appearance and Movements; NL JVP Respiratory: Symmetrical Chest Expansion and Respiratory Effort, Clear to Auscultation Cardiovascular: NL Sounds; No Murmurs; No JVD Abdominal: NL Sounds; No Tenderness; No Distention, - - : catheter present, has chronically eroded ventral aspect of glans, and eroded to LT, leaking clear/ yellow urine Neurological: Alert and Oriented x 3 Lines/Tubes/Other Access: Clean, Dry and Intact Peripheral IV Nutrition: Taking PO's - Nutrition: Malnutrition Diagnosis/Plan Malnutrition Assessment by Registered Dietitian: Malnutrition Assessment Clinical Characteristics Acute,Severe Malnutrition Assessment: Moderate muscle/fat loss Criteria Severe acute weight loss (15.9% over 1 1/2 months) Severe deficit in energy intake (<50% - essentially just 1 to 2 servings Boost per day) Malnutrition Assessment: Ensure enlive 3 times daily (350 kcals, 20 gms Interventions protein each) [place] diet (regular at present) Selection of menu to maximize tolerance/ acceptance Malnutrition Assessment: Goals 1. Improved oral intake to >75% to support wound healing, maintenance of lean body mass, adequate hydration w/o contributing to undesirable weight gain. 2. Improvement of K levels to WNL. 3. Evidence of wound healing and no new areas of skin breakdown. Result Diagrams: 04/20/19 07:35 04/20/19 07:35 Microbiology and Other Data: Microbiology 04/14/19 16:20 Urine Culture - Final Urine Julissa Albicans Normal Fabby Assess/Plan/Problems-Billing Assessment: 73 M PMH paraplegia from lumbar ependymoma tumor/resections, neurogenic bladder , chronic sacral wounds, s/p colostomy for fecal incontinence, CAD, CKDIII, with recent 7 week hospitalization at [place] for infected ischium wound c/b seizures (attributed to linezolid), PRES and ARF, sent to [facility] for rehab but readmitted to hospital 04/13 for sepsis 2/2 klebsiella CAUTI. - Patient Problems (1) Catheter-associated urinary tract infection Current Visit: Yes Status: Acute Priority: High Code(s): T83.511A - I/I REACT D/T INDWELLING URETHRAL CATHETER, INIT; N39.0 - URINARY TRACT INFECTION, SITE NOT SPECIFIED SNOMED Code(s): 217827385 Comment: - Completed Zosyn -last dose on 04/19/19 night for klebseilla and pseudomonas - Catheter will be assessed due to leakage by Dr. Castaneda - Sepsis resolved (2) Pressure ulcer of sacral region, stage 3 Current Visit: Yes Status: Acute Priority: Medium Code(s): L89.153 - PRESSURE ULCER OF SACRAL REGION, STAGE 3 SNOMED Code(s): 078042084 Comment: - Pressure ulcer over ischium. Overall improving per report. He was initially hospitalized in [place] secondary to infected decubitus. - Wound care consult appreciated (3) Seizures Current Visit: No Status: Acute Priority: High Code(s): R56.9 - UNSPECIFIED CONVULSIONS SNOMED Code(s): 92951797 Comment: - New onset seizures secondary to linezolid or PRES. - Will taper, as cause likely reversible, within one to two weeks, will go to 250mg for afternoon dose and then 250 BID x 1 week, then 250 QDay x1 week then stop - No observed seizures - Will need neuro evaluation if any concerns for recurrent seizure. (4) DNR (do not resuscitate) Current Visit: Yes Status: Acute Priority: Low Comment: -appropriate end of live decision-making (5) DVT prophylaxis Current Visit: Yes Status: Acute Priority: Medium Code(s): CXV6291 - SNOMED Code(s): 807936033 Comment: - SC heparin Status and Disposition: PMRU on Sunday 04/22
--- NOTE | 2019-04-21 19:16 | CONS ---
CONSULTATION NOTE: DATE OF CONSULT: 04/21/19 HISTORY OF PRESENT ILLNESS: Mr. 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 The patient was previously managed with intermittent self catheterizations; however, with the worsening of his medical condition and of his neurological condition, he has been on chronic catheter drainage. The patient had diverting colostomy in the left lower quadrant performed to avoid contamination of recurrent decubitus ulcers of the buttocks and sacral areas. Because of recurrent urinary tract infections, development of iatrogenic hypospadias from the chronic Fischer catheter, and because of some difficulty replacing his Fischer catheter, the plan in the summer was to attempt to place a suprapubic catheter. Two months ago, I took him to the operating room where he underwent a cystoscopy. There was no urethral stricture, no prostate enlargement, and the bladder neck was wide open. A suprapubic catheter could not be placed because the patient could not hold more than 75 cc in his bladder. Whenever the bladder was distended, there was pericatheter leakage. Because of that, it would have been difficult to place a percutaneous suprapubic catheter and the other concern was even if the catheter is placed he will continue to have urinary incontinence considering that he had a small capacity and by cystoscopy poor sphincteric function. Another concern was potential contamination of the suprapubic tract because of its close proximity to the colostomy. The patient had a recent episode of urinary tract infection requiring IV antibiotics. His Fischer catheter was replaced 6 days ago. consultation was obtained today because of pericatheter leakage. Most of the urine was coming in diapers around the Fischer catheter. On examination today, he is lying comfortably in bed. He has a Fischer catheter that is draining small amount. An iatrogenic hypospadias was noted extending all the way into the perineum. There are wet pads underneath him. I repositioned the Fischer catheter so that the catheter will come below rather than above his leg, hopefully achieving a more dependent drainage. If that does not help with the incontinence, I will replace his Fischer catheter myself. If all of that is not successful, attempt should be made for suprapubic catheter placement, although I am a concerned because of the proximity of the site of the suprapubic catheter to the colostomy and the increased risk of having urinary infections contaminated by the colostomy bag. I discussed the above with Ms. Merino.I will recheck tomorrow morning on his condition. [id number]/[facility] #: [id number] MTDD
[2019-04-21] MEDS: Acetaminophen TAB* 325 MG PO PRN (20:25)
[2019-04-21] MEDS: Doxazosin TAB* 2 MG PO SCH (20:27)
[2019-04-22 04:18] VITALS: BP 124/53
[2019-04-22] MEDS: LEVORPHANOL 2 MG PO SCH (06:02)
[2019-04-22] MEDS: Heparin VIAL(*) 5000 UNITS/ML VIAL (FIVE THOUSAND) SUBCUT SCH (06:03)
[2019-04-22] MEDS: Pantoprazole TAB * 40 MG TAB PO SCH (07:43)
[2019-04-22] MEDS: Cyanocobalamin TAB* 500 MCG PO SCH (07:43)
[2019-04-22] MEDS: Cholecalciferol TAB* 1000 UNITS PO SCH (07:43)
[2019-04-22] MEDS: Pregabalin CAP(*) 50 MG PO SCH (07:43)
[2019-04-22] MEDS: Ferrous Gluconate TAB* 324 MG TAB PO SCH (07:44)
[2019-04-22] MEDS: levETIRAcetam TAB* 500 MG PO SCH (07:44)
[2019-04-22] MEDS: Carvedilol TAB* 6.25 MG PO SCH (07:44)
[2019-04-22] MEDS: amLODIPine TAB* 5 MG PO SCH (07:45)
[2019-04-22] MEDS: Aspirin 81 mg CHEW TAB* 81 MG TAB.CHEW PO SCH (07:46)
--- NOTE | 2019-04-22 09:44 | DS ---
CC: Dr. Castaneda; Dr. Griffiths * DISCHARGE SUMMARY: DATE OF ADMISSION: 04/13/19 DATE OF DISCHARGE: 04/22/19 ADDENDUM: HOSPITAL COURSE: The patient's planned discharge to [facility] on the 04/21/19 was delayed due to insurance questions. The patient also had leakage around the urinary catheter, which had been present for 3 days. He was of course admitted for sepsis with UTI and had a repeat urine culture on 04/14/19 that grew small amounts of Julissa albicans. Earlier urine culture from the [facility] stay grew Klebsiella and Pseudomonas. The patient completed a week of Zosyn prior to the planned discharge yesterday and because of leakage, possibility of infection was discussed with the patient's . Consultation was obtained with Dr. Castaneda, Urology regarding the leakage. He assessed the patient and stated that he had iatrogenic hypospadia as well as a neurogenic bladder, which was not easily distensible making him a poor candidate for suprapubic catheter. The patient has essentially no sphincter at the bladder outlet and so some leakage happen on the tubing. He replaced the Fischer on the morning of discharge and positioned it in a different angle to try to help the catheter catch more of the drainage. MEDICATION LIST: Unchanged. DISCHARGE DIAGNOSES: List to include, iatrogenic hypospadia as well as colostomy. DISPOSITION: To [facility]. CONDITION: Fair. STATUS: Inpatient. DIET: Low potassium. ACTIVITIES: Out of bed to chair as tolerated. [id number]/[facility] #: [id number] MTDD
== END 2019-04-22 08:30 | DRG 698 ==
LOC: SSU 21:24 → MED 21:36
PROVIDERS: ADMIT Nurse Practitioner Adult Health; ATTEND Internal Medicine
PROC: 30233N1 Transfusion of Nonautologous Red Blood Cells into Peripheral Vein, Percutaneous Approach (ICD-10-PCS; principal; 2019-04-16)
DX: T83.511A Infection and inflammatory reaction due to indwelling urethral catheter, initial encounter (principal); L89.223 Pressure ulcer of left hip, stage 3; A41.52 Sepsis due to Pseudomonas; A41.59 Other Gram-negative sepsis; G82.20 Paraplegia, unspecified; Y82.8 Other medical devices associated with adverse incidents; Y92.9 Unspecified place or not applicable; N39.0 Urinary tract infection, site not specified; N31.9 Neuromuscular dysfunction of bladder, unspecified; G40.909 Epilepsy, unspecified, not intractable, without status epilepticus; G47.33 Obstructive sleep apnea (adult) (pediatric); I12.9 Hypertensive chronic kidney disease with stage 1 through stage 4 chronic kidney disease, or unspecified chronic kidney disease; N18.3 Chronic kidney disease, stage 3 (moderate); G89.4 Chronic pain syndrome; I25.10 Atherosclerotic heart disease of native coronary artery without angina pectoris; Z88.8 Allergy status to other drugs, medicaments and biological substances; B96.5 Pseudomonas (aeruginosa) (mallei) (pseudomallei) as the cause of diseases classified elsewhere; B96.1 Klebsiella pneumoniae [K. pneumoniae] as the cause of diseases classified elsewhere; Z88.1 Allergy status to other antibiotic agents; J45.909 Unspecified asthma, uncomplicated; K21.9 Gastro-esophageal reflux disease without esophagitis; E78.5 Hyperlipidemia, unspecified; I72.9 Aneurysm of unspecified site; L89.612 Pressure ulcer of right heel, stage 2; L89.620 Pressure ulcer of left heel, unstageable; L89.152 Pressure ulcer of sacral region, stage 2; L89.210 Pressure ulcer of right hip, unstageable; Z66 Do not resuscitate; Z87.440 Personal history of urinary (tract) infections; D63.1 Anemia in chronic kidney disease; Z79.82 Long term (current) use of aspirin
CPT/HCPCS: 36415; 80048; 81003; 81015; 82728; 83540; 83550; 83880; 84134; 85025; 85027; 85060; 86140; 86850; 86900; 86901; 86922; 87086; 87106; A9270-GY; G8978-GP-CN; G8979-GP-CM; G8979-GP-CN; G8987-GO-CJ; G8987-GO-CK; G8988-GO-CI; J1644; J2543; P9040

== ENCOUNTER 2019-04-22 07:30 | Inpatient (IN) | payer MEDICARE ==
[2019-04-22] MEDS ORDERED: Acetaminophen TAB* 325 MG PO PRN (11:28)
--- NOTE | 2019-04-22 12:43 | PMRUTEAM ---
PMRU: Team Meeting Current Status: Physical Therapy: Current Status Current Rolling Status Dependent Current Supine <-> Sit Status Dependent Current Sit <-> Stand Status Not Applicable Current Bed <-> Chair Status Dependent Transfer/Bed Mobility Laila Lift Recommended Devices Current Picking Up Object Not attempted Status Current Car Transfer Status Not attempted Current Ambulation Assistance Not Applicable Status Manual Wheelchair Control/ Right UE Technique Current Wheelchair Propulsion Partial/Moderate Ability Status Wheelchair Distance (ft) 15 Current Stair Climbing Status Not Applicable Occupational Therapy: Current Status Current Upper Body Dressing Substantial/Maximal Status Current Lower Body Dressing Dependent Status Current Footwear Status Dependent Current Bathing Status Dependent Bathing Progress 2 max-totalA for rolling left and right in supine Current Toileting Status Dependent Toileting Progress totalA for hygiene, clothing management, emptying ostomy/arriaga Current Toilet Transfer Status Not Applicable Current Eating Status Setup or Clean-up Assist Nursing: Current Status Skin Deviations [Right Lateral Pressure Ulcer Hip] Skin Deviations [Sacrum] Wound Skin Deviations [Left Heel] Other Skin Deviations [Bilateral Other Ankle] Skin Deviation Description [ optifoam in place Right Lateral Hip] Skin Deviation Description [ optifoam in place Sacrum] Skin Deviation Description [ per report Stage 1 with Optifoam Left Heel] Skin Deviation Description [ per report stage 1 wiht Optifoam Bilateral Ankle] Bladder Current Status arriaga inserted by Dr. 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 is aware of RT Clinical Impression services. Pt. is engaged in leisure sessions. Goals: Physical Therapy: Goals Goals to Be Accomplished in ( 2 Days) Goal: Rolling Assistance Substantial/Maximal Goal Supine <-> Sit Status Dependent Goal Sit <-> Stand Status Not Applicable Goal Bed <-> Chair Status Dependent Transfer/Bed Mobility Laila Lift Recommended Devices Goal: Car Transfer Status Not attempted Goal: Ambulation Assistance Not Applicable Ambulation Assistive Devices Forearm Crutches Goal: Wheelchair Propulsion Partial/Moderate Ability Wheelchair Distance (ft) 50 Goal: Stairs Assistance Not Applicable Goal: Curb Assistance Not Applicable Goal: Home Exercise Program Partial/Moderate Assistance Occupational Therapy: Goals Goals to be Completed in (Days 2-3 ) Goal Upper Body Dressing Partial/Moderate Routine Goal Lower Body Dressing Dependent Routine Goal Footwear Status Dependent Goal Bathing Routine (OT) Dependent Goal Grooming Routine Setup or Clean-up Assist Goal Toilet Hygiene and Dependent Clothing Management Routine Goal Toilet Transfer Routine Not Applicable Goal Functional Transfers for Dependent ADL Goal Feeding Routine Setup or Clean-up Assist Nursing: Goals Bladder Goal indwelling at home with supervision Bowel Goal supervision Nutrition Goal consume 100% of all meals Medication Goal supervision Care Plan: Care Plan DVT Prophylaxis- Improve/Maintain Start: 04/22/19 11:30 Freq: DAILY@0700,1900 Status: Active Target: 04/23/19 Protocol: Activity Type Activity Date Activity User E-Sign Co-Sign Detail Recorded Client Recorded Date Recorded By Document 04/22/19 11:31 [id number] [email or web address] 04/22/19 11:34 [id number] 04/22/19 11:31 PMRU Outcome: DVT Prophylaxis Current DVT Outcome/Goals Remains Free of DVT Complies with DVT Prophylaxis /Treatment Demonstrates Knowledge of DVT Prevention/ Treatment Progression Toward Outcome/Goals Goal Initiation Discharge Planning - Improve/Maintain Start: 04/22/19 11:30 Freq: DAILY@07,190 Status: Active Target: 04/23/19 Protocol: Activity Type Activity Date Activity User E-Sign Co-Sign Detail Recorded Client Recorded Date Recorded By Document 04/22/19 11:31 [id number] [email or web address] 04/22/19 11:34 [id number] 04/22/19 11:31 PMRU Outcome: Discharge Planning Update Patient Family Yes Current Discharge Planning Outcome/Goals Demonstrates Understanding of Discharge Plan Homecare Referral - See Comment Progression Toward Outcome/Goals Goal Initiation Education-Improve/Maintain Start: 04/22/19 11:30 Freq: DAILY@07,1900 Status: Active Target: 04/23/19 Protocol: Activity Type Activity Date Activity User E-Sign Co-Sign Detail Recorded Client Recorded Date Recorded By Document 04/22/19 11:31 [id number] [email or web address] 04/22/19 11:34 [id number] 04/22/19 11:31 PMRU Outcome: Education Current Education Outcome/Goals Demonstrate/ Verbalize Understanding of Written Discharge Instructions Demonstrates Skills Encourage Questions Progression Toward Outcome/Goals Goal Initiation /GI-Improve/Maintain Start: 04/22/19 11:30 Freq: DAILY@0700,1900 Status: Active Target: 04/23/19 Protocol: Activity Type Activity Date Activity User E-Sign Co-Sign Detail Recorded Client Recorded Date Recorded By Document 04/22/19 11:31 [id number] [email or web address] 04/22/19 11:34 [id number] 04/22/19 11:31 PMRU Outcome: Genitourinary/ Gastrointestinal Current Gastrointestinal Outcome/Goals Maintain/ Achieve Bowel Regularity in Accordance with Pt's Baseline Remain Free of Emesis Prevent Constipation Laxatives as Ordered Progression Toward Outcome/Goals Goal Initiation Current Genitourinary Outcome/Goals Maintain/ Achieve Adequate Urinary Output Remain Free of Hospital- Acquired UTI Progression Toward Outcome/Goals Goal Initiation Medication Administration Start: 04/22/19 11:30 Freq: DAILY@0700,1900 Status: Active Target: 04/23/19 Protocol: Activity Type Activity Date Activity User E-Sign Co-Sign Detail Recorded Client Recorded Date Recorded By Document 04/22/19 11:31 [id number] [email or web address] 04/22/19 11:34 [id number] 04/22/19 11:31 PMRU Outcome: Medication Administration Assess Patient Knowledge/Teach Med Yes Education for all Meds Current Station Usher Outcome/Goals Family/ Caregiver Administer Medications at Home Demonstrates Understanding Progression Towards Outcome/Goals Goal Initiation Is Patient Going Home on Lovenox? No Neurological- Improve/Maintain Start: 04/22/19 11:30 Freq: DAILY@0700,1900 Status: Active Target: 04/23/19 Protocol: Activity Type Activity Date Activity User E-Sign Co-Sign Detail Recorded Client Recorded Date Recorded By Document 04/22/19 11:31 [id number] [email or web address] 04/22/19 11:34 [id number] 04/22/19 11:31 PMRU Outcome: Neurological Weakness/Aphasia Weakness Weakness/Aphasia Comment paraplegia Current Neurological Outcome/Goals Maintain/ Achieve Baseline Neurological Status Prevent Avoidable Neurological Decline Maintain/ Improve Strength/ROM Progression Toward Outcome/Goals Goal Initiation Nutrition/Swallowing- Improve/Maintain Start: 04/22/19 11:30 Freq: DAILY@0700,1900 Status: Active Target: 04/23/19 Protocol: Activity Type Activity Date Activity User E-Sign Co-Sign Detail Recorded Client Recorded Date Recorded By Document 04/22/19 11:31 [id number] [email or web address] 04/22/19 11:34 [id number] 04/22/19 11:31 PMRU Outcome: Nutrition/Swallowing Current Nutrition/Swallowing Outcome/ Demonstrates Goals Adequate Hydration/ Prevents Dehydration Maintain/ Improve Nutritional Status Progression Toward Outcome/Goals Goal Initiation Pain/Comfort- Improve/Maintain Start: 04/22/19 11:30 Freq: DAILY@0700,1900 Status: Active Target: 04/23/19 Protocol: Activity Type Activity Date Activity User E-Sign Co-Sign Detail Recorded Client Recorded Date Recorded By Document 04/22/19 11:31 [id number] [email or web address] 04/22/19 11:34 [id number] 04/22/19 11:31 PMRU Outcome: Pain/Comfort Current Pain/Comfort Outcome/Goals Demonstrates Knowledge and Use of Available Comfort Measures Achieves Acceptable Comfort/Pain Level as Determined by Patient/Condit Maintain Comfort Level Allowing Patient to Fully Participate in Rehab Progression Toward Outcome/Goals Goal Initiation Safety- Improve/Maintain Start: 04/22/19 09:08 Freq: DAILY@0700,1900 Status: Active Target: 04/23/19 Protocol: Activity Type Activity Date Activity User E-Sign Co-Sign Detail Recorded Client Recorded Date Recorded By Document 04/22/19 11:31 [id number] [email or web address] 04/22/19 11:34 [id number] 04/22/19 11:31 PMRU Outcome: Safety Current Safety Outcome/Goals Remain Free of Injury or Harm Cooperates with Safety Measures for Least Restrictive Environment Prevent Falls/ Injury Progression Toward Outcome/Goals Goal Initiation Skin- Improve/Maintain Start: 04/22/19 11:30 Freq: DAILY@0700,1900 Status: Active Target: 04/23/19 Protocol: Activity Type Activity Date Activity User E-Sign Co-Sign Detail Recorded Client Recorded Date Recorded By Document 04/22/19 11:31 [id number] [email or web address] 04/22/19 11:34 [id number] 04/22/19 11:31 PMRU Outcome: Skin Skin Risk Level Very High Risk Skin Orders Dressing Change Multipodus Boot Heels Off Bed Turn/Position q2hr While in Bed Other Skin Orders Comment patient in ICU bed. will need to teach drsg changes Current Skin Outcome/Goals Maintain/ Improve Skin Integrity Maintain/ Improve Wound Status Progression Toward Outcome/Goals Goal Initiation - Interdisciplinary Staff Present Front End Specialist/Social Work Staff Present: Kayli Meyer LMSW Nursing Staff Present: Carolyn Anguiano RN OT Staff Present: Shanta Holden PT Staff Present: Sahara Weiner Rec Therapy Staff Present: Darlene Aguilar Medicine Note: Length of Stay: 3 days Anticipated Discharge Destination: Home Tentative Discharge Date: 04/25/19 Discharged to: Home
[2019-04-22] MEDS: Pregabalin CAP(*) 50 MG PO SCH ×2 (14:15→20:49)
[2019-04-22] MEDS: Isosorbide Dinitrate TAB* 10 MG PO SCH ×2 (14:15→20:58)
[2019-04-22] MEDS: LEVORPHANOL 2 MG PO SCH ×2 (14:16→22:01)
[2019-04-22] MEDS: Heparin VIAL(*) 5000 UNITS/ML VIAL (FIVE THOUSAND) SUBCUT SCH ×2 (14:16→22:01)
--- NOTE | 2019-04-22 17:28 | CONSULT ---
Subjective Date of Service: 04/22/19 Interval History: Mr. 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 He presented to [facility] on 02/23/19 with complaints of fever for 3 days and concerns of an infected pressure injury and consult with Dr. Yassine Blankenship ( previously performed flap reconstruction). He was admitted to [facility] for a sacral pressure injury and underwent debridement (by Dr. Vonnie Virk ) and ABX. He developed Posterior Reversible Encephalopathy Syndrome (PRES) and seizures felt to be secondary to Linezolid, and was intubated for 1 week for acute respiratory failure. He stayed at [place] for a total of 44 days. He was felt to require rehab and was admitted to [facility] on 04/09/19. He developed sepsis secondary to a UTI and was transferred to the medical floor on 04/13/19, he was discharged back to [facility] today. Patient presented to [facility] from [facility] with multiple pressure injuries including; bilateral heels, left ischium, right hip, sacrum. Also noted to have ecchymosis to the right ankle. He has developed deep tissue injuries to the right heel, pressure injury to the right heel, and buttocks with some shearing and deep tissue injuries to the buttocks during his hospitalization. Patient seen and examined at bedside. Family History: Unchanged from Admission Social History: Unchanged from Admission Past Medical History: Unchanged from Admission Review of Systems - Measurements Intake and Output: Intake and Output Last 24 Hours 04/20/19 04/21/19 04/22/19 04/23/19 06:59 06:59 06:59 06:59 Output Total 550 Balance -550 Weight 217 lb Output: Fischer 450 Colostomy 100 Other: Estimated Stool Amount Medium - Review of Systems Constitutional Symptoms: Negative: Fever, Other - Chills Dermatology: Positive: Other - Multiple wounds Neurology: Positive: Other - Paraplegic Objective Active Medications: Acetaminophen (Tylenol Tab*) 650 mg PO Q6H PRN Reason: MILD PAIN or TEMP > 100.4 Amlodipine Besylate (Norvasc Tab*) 10 mg PO DAILY RADHA Aspirin (Aspirin Ec Tab*) 81 mg PO DAILY RADHA Carvedilol (Coreg Tab*) 12.5 mg PO BID RADHA Cholecalciferol (Vitamin D Tab*) 1,000 units PO DAILY RADHA Cyanocobalamin (Vitamin B12 Tab*) 1,000 mcg PO DAILY RADHA Doxazosin Mesylate (Cardura Tab*) 2 mg PO BEDTIME RADHA Ferrous Gluconate (Fergon Tab*) 324 mg PO DAILY RADHA Heparin Sodium (Porcine) (Heparin Vial(*)) 5,000 units SUBCUT Q8HR RADHA Isosorbide Dinitrate (Isordil Tab*) 10 mg PO TID RADHA Levetiracetam (Keppra Tab*) 250 mg PO BID RADHA Levorphanol Tartrate (Levorphanol 2 Mg (Nf)) 2 mg PO Q8H RADHA Pantoprazole Sodium (Protonix Tab*) 40 mg PO BID RADHA Pregabalin (Lyrica Cap(*)) 50 mg PO TID RADHA Vital Sign 04/22/19 09:08 Temperature 98.7 F Temperature Oral Source Pulse Rate 66 Respiratory 20 Rate Blood Pressure 131/41 (mmHg) O2 Sat by Pulse 95 Oximetry Oxygen Devices in Use Now: None Appearance: NAD, laying in bed Ears/Nose/Mouth/Throat: Mucous Membranes Moist Respiratory: Symmetrical Chest Expansion and Respiratory Effort Cardiovascular: No Edema Extremities: No Edema, - - Weak bilateral DP pulses Skin: - - See skin note below Neurological: Alert and Oriented x 3 Result Diagrams: 04/23/19 06:31 04/23/19 06:31 Additional Lab and Data: Above labs were pulled into the note, when the note was edited prior to signing. There were no labs from the day of the consultation. Diagnostic Imagin. Exam Date: 02/11/19 - VL ANK/BRACHIAL INDICES FINDINGS: The ankle brachial index on the right was 0.39 and on the left was 0.80. The ankle-brachial indices on the prior study were 0.93 and 0.91 respectively. There is monophasic flow within the right posterior tibial artery and monophasic flow within the right dorsalis pedis artery. There is biphasic flow within the left posterior tibial artery and biphasic flow within the left dorsalis pedis artery. IMPRESSION: SIGNIFICANTLY REDUCED ANKLE-BRACHIAL INDICES AND WAVEFORMS MORE SEVERE IN THE RIGHT LOWER EXTREMITY. CONSIDER A CT ANGIOGRAM OF THE AORTA AND LOWER EXTREMITIES FOR FURTHER EVALUATION. 2. Exam Date: 02/11/19 - MRI LOWER EXTREMITY RIGHT W/O IMPRESSION: SOFT TISSUE SWELLING AND SOFT TISSUE ULCER, NO SPECIFIC EVIDENCE FOR OSTEOMYELITIS. Skin Deviation Note - Skin Deviation Findings Right posterior/lateral heel (achilles) - There is an intact blister, measures 2.5 cm x 2.5 cm. There is purplish discoloration to the skin. The surrounding skin intact. No drainage. Right buttock/hip - There is a superficial open area, measures 2 cm x 1.5 cm x 0.1 cm. There is an area of dark discoloration (line going up towards the hip), measures 9 cm x 3.5 cm. The surrounding skin is intact. There is no drainage. See below for furhter documentation of the sacrum. Right lateral hip - There is a shallow wound, measures 1.4 cm x 1.2 cm x 0.1 cm. The wound base is mostly adherent yellow slough, with a small amount of red granulation tissue. The surrounding skin is intact. There is no drainage. Left buttocks/hip and sacrum - There is a large area of erythema, that is slightly blanchable. There is a superficial open area on the left that measures 8 cm x 4 cm x 0.1 cm. There is an area of dark purple discoloration at 12 o' clock above the anus. There is a small area of dark purplish discoloration just left of the midline back. The cleft above with slight blanchable erythema. There is a small amount of bloody drainage noted from the superficial open areas. The surrounding skin is intact. Left ischium - The wound measures 4 cm x 3 cm x 2 cm at 3 o'clock and 2.5 cm at 6 o'clock. The wound base initially had yellow slough present, this was easily removed with a cotton tipped applicator. The wound bed is beefy red granulation tissue. The periwound is slightly macerated. The surrounding skin with slight blanchable erythema. There is a small amount of clear drainage. No odor. Right medial 1st toe - The is a small u shaped area of dark purple discoloration , the skin is intact. This measures 1 cm x 1 cm. No drainage. The surrounding skin is intact. Right lateral ankle - There is an area of slight purplish discoloration, measures 2.5 cm x 2 cm. There is a small area of fluctuance, measures 1 cm x 1cm. The surrounding skin is intact, with some dry and flaky skin. No drainage. Left medial heel - There is a superficial open area, measures 0.9 cm x 0.6 cm x 0.1 cm. There is adherent white slough in the wound base and a small amount of pink granulation tissue. The surrounding skin is intact, pink and slightly blanchable. The heel is also boggy. Right medial heel - There is a wound that measures 3 cm x 2 cm x 0.1 cm. The wound base is adherent white slough. There is dark purplish discoloration in the wound base and to the intact skin towards the plantar aspect of the foot. The surrounding skin is intact. Not pictured: On the left upper medial thigh there is a candidiasis rash present. Wound Problem/Plan Assessment: Mr. 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 He presented to [facility] on 02/23/19 with complaints of fever for 3 days and concerns of an infected pressure injury and consult with Dr. Yassine Blankenship ( previously performed flap reconstruction). He was admitted to [facility] for a sacral pressure injury and underwent debridement (by Dr. Vonnie Virk ) and ABX. He was felt to require rehab and was admitted to [facility] on . He developed sepsis secondary to a UTI and was transferred to the medical floor on 04/13/19, he was discharged back to [facility] today. Patient presented to [facility] from [facility] with multiple pressure injuries including; bilateral heels, left ischium, right hip, sacrum. Also noted to have ecchymosis to the right ankle. He has developed deep tissue injuries to the right heel, pressure injury to the right heel, and buttocks with some shearing and deep tissue injuries to the buttocks during his hospitalization. 1. Right medial heel unstageable pressure injury, with associated deep tissue injury. The original wound has been present since November 2018, he started to follow with the [facility] for this wound in January 2019. Underwent ABIs in February showing reduced ABIs right > left. Also had an MRI of the foot in February 2019, showing no sign of osteomyelitis. He was suppose to have a CTA with runoff and referral to Dr. Mckinley, but it appears that was neither were ever completed. While in [facility] this wound was being treated with a border foam dressing. The initial wound had healed last week, but is now unstageable with an associated deep tissue injury. Recommend applying Santyl to the area of slough, followed by calcium alginate, and rolled gauze, and change daily or as needed for drainage. Keep the heels elevated off the bed, use multipodus boots and spankos. Will add a prealbumin to the last labs. Consider referral to Vascular outpatient as previously recommended. Should follow with wound clinic as outpatient. 2. Right lateral ankle and right posterior/lateral heel. There is an area of discoloration, this represents deep tissue injuries. While in [facility] the right lateral ankle was being treated with a border foam dressing. The right posterior/lateral heel deep tissue injury has developed over the past week. Recommend using a border foam dressing (Optifoam) to protect the area, but could consider leaving open to air as there are no open areas. Keep the heels elevated off the bed, use multipodus boots and spankos. Will add a prealbumin to the last labs. Consider referral to Vascular outpatient as previously recommended. Should follow with wound clinic as outpatient. 3. Left medial heel unstageable pressure injury. Unclear how long this has been present. Ms. Merino reports this has been present since January, but was not previously documented by the [facility] in January and February when he was seen there last. See LINA results above. While in [facility] this wound was being treated with Medihoney and a border foam dressing and being changed every other day. Recommend applying Santyl followed by calcium alginate, and rolled gauze, and change every day or as needed for drainage. Keep the heels elevated off the bed, use multipodus boots and spankos. Will add a prealbumin to the last labs. Consider referral to Vascular outpatient. If wound continues to be present and not healing, should consider MRI to evaluate for Osteomyelitis. 4. Left ischium stage 3 pressure injury. This has been present since November 2018, he started to follow with the [facility] for this wound in January 2019. While in [facility] this wound was being treated with a wound vac, and then changed to Santyl BID with wet to dry dressing at the time of discharge. This is reported to have wound cultures with MRSA and VRE while in [place]. He was treated with Linezolid and Zosyn, unclear for how long. Recommend gently packing the wound with calcium alginate rope, and cover with a border foam gauze (Optifoam) and change daily or as needed for drainage. Frequent turning and repositioning. Do not sit up in a chair for more than 1-2 hours at a time if possible. Use Roho cushion in wheel chair when up OOB. Will add on a prealbumin to evaluate nutritional status. Should be referred back to the [facility] (or wound clinic of choice) at discharge. 5. Sacral/lower back stage 2 pressure injury, healed. 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 Fracture of the L3 vertebral body. There is perhaps slightly marrow signal abnormality within the posterior elements of the sacrum at the level of S3, which is nonspecific and may be reactive secondary to the adjacent mass, however early/mild changes related to osteomyelitis cannot be entirely excluded". The wound has healed, and there is slight erythema to the skin in this area. Recommend applying barrier cream (orange top) as needed. If the area appears to have a fungal infection recommend discontinuing barrier cream and use Nystatin powder twice daily. Frequent turning and repositioning. Will add a prealbumin to the last labs. 6. Sacral/buttocks superficial wounds with deep tissue injury. These have been present since 04/12/19. Recommend using barrier cream as needed. Use a lifting device to move in bed. Frequent turning and repositioning. If he develops more shearing injuries, can consider using a large Opifoam to the area and change every 3 days or as needed for soiling. 7. Right hip unstageble pressure injury. Unclear how long this has been present , but developed after last seen at the wound clinic in February as not documented at that time (02/13/19). While at [facility] this was being treated with Santyl and a border foam dressing. Recommend applying Santyl to the wound base once daily, followed by a border foam dressing (Optifoam) and change daily or as needed for drainage. Frequent turning and repositioning. Do not sit up in a chair for more than 1-2 hours at a time if possible. Use Roho cushion in wheel chair when up OOB. Will add on a prealbumin to evaluate nutritional status. 8. Right 1st toe, deep tissue injury. Unclear what caused this injury, may have been a toe nail. Recommend protecting the area. 9. Left upper thigh rash. Suspect this is candidiasis. Recommend applying Nystatin powder to the area. 10. Anterior urethral injury; acquired latrogenic hypospadias. surgery nurse related pressure injury to the penis secondary to the urinary catheter. This is not new and has been documented by Urology in the past. Use caution to keep pressure off the urinary catheter tube to prevent further breakdown. 11. Paraplegia secondary to spinal ependymoma. With neurogenic bladder and a chronic indwelling urinary catheter. 12. Diet. Regular diet. 13. Code Status. DNR. 14. Disposition. Inpatient, disposition per Primary team. TIME SPENT: Time for this wound consultation was 100 minutes and 90 minutes was spent at bedside with the patient and discussing progression of wounds; removing old dressings; assessing, measuring, and photographing the wounds; reapplying new dressings. Is Patient a Wound Clinic Patient: [facility] Current Treatment: See skin note above for details. Attending: Carin Anthony
--- NOTE | 2019-04-22 18:57 | HP ---
ADMISSION HISTORY AND PHYSICAL: DATE OF ADMISSION: 04/22/19 REASON FOR ADMISSION: Paraplegia secondary to an ependymoma; recent admission for sepsis, and acute respiratory failure with posterior reversible encephalopathy syndrome. HISTORY OF PRESENT ILLNESS: Kavon Merino is a 73-year-old male. 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 He has had debulking surgeries and radiation treatment to the area. Radiation and chemotherapy were tried, but did not help. Since 1970, Obi has had increasing weakness in his legs accompanied by pain down both legs. When I first met him in 2011, he was able to ambulate with bilateral AFOs for short distances. He did require a wheelchair for long distances. At this time, he is now a complete paraplegic. I have followed him for his pain for many years. He has pain down both legs as a result of the tumor invading the lumbar vertebrae and the cauda equina. The pain significantly worsened over the course of the past 3-1/2 years. Most recently, we have had the patient on levorphanol 2 mg 3 times a day for his pain. This past December, he was brought to the emergency room with increasing back pain. He was originally diagnosed with a kidney stone, but then was transferred to [facility] to see a urologist and was diagnosed with a kink in his Fischer catheter. His catheter was changed and his back pain got better. Shortly thereafter, he developed a pressure ulcer over his left ischium. He has been treated in the wound clinic. In February, the wound began to worsen. On 02/23/19, he went back to [facility] because he had developed high temperatures. He was diagnosed with an infected pressure ulcer and was treated with Zosyn and Zyvox. He developed increasing confusion and mental status changes along with acute respiratory failure. He had to be intubated. He had a seizure, which was thought to be secondary to Zyvox. He was diagnosed with posterior reversible encephalopathy syndrome and his blood pressure was treated very aggressively. He was on the ventilator for 8 days. Following extubation, he had difficulty swallowing and difficulty with speaking, but that gradually improved. He was admitted to rehab initially 04/09/19 following that rehab stay. At that time, he had been tapering off his Keppra which he was on for the seizure, which had been blamed on Zyvox. The patient's blood pressures on the rehab unit were quite low and his antihypertensive doses which were quite high were cut back. The patient remained fatigued. On 04/12/19, the patient developed fevers and again mental status changes. A CAT team was called. The patient was started on IV antibiotics and given fluid resuscitation as his blood pressure was still low. The fevers continued and on 04/13/19 he was transferred to the acute medical service. He received treatment with IV Zosyn for a urinary tract infection, which grew out klebsiella and pseudomonas. He completed a week of Zosyn. He had difficulty with leaking around the Fischer catheter. Dr. Castaneda from Urology saw the patient. Dr. Castaneda felt he was a poor candidate for suprapubic catheter and changed his Fischer. He replaced it at a different angle. The patient is being transferred back to the rehab unit. His is going to undergo family training with Physical and Occupational Therapy so she might take the patient home at week's end. PAST MEDICAL HISTORY: Significant for the aforementioned ependymoma with paraplegia and chronic pain. He has a history of hypertension, sleep apnea, chronic kidney disease, coronary artery disease. CURRENT MEDICATIONS: Include: 1. Amlodipine. 2. Aspirin. 3. Coreg. 4. Cardura. 5. Heparin subcutaneously. 6. Isordil. 7. Keppra. 8. Levorphanol. 9. Protonix. 10. Lyrica. ALLERGIES: To STATIN drugs including ATORVASTATIN. SOCIAL HISTORY: He is a nonsmoker and nondrinker. [place] He has a son and [id number] living nearby. He also has another [id number] and son living not far from him. His is his healthcare proxy as well as his surrogate decision maker. REVIEW OF SYSTEMS: The patient reports no current chest pain or shortness of breath. He seems more alert than on his last visit. He is on Coreg because he had an episode of nonsustained V-tach up in [place]. PHYSICAL EXAMINATION VITAL SIGNS: The patient's temperature is 98.7, blood pressure is 131/41, pulse 66, respirations 20. HEENT: His extraocular movements appeared to be intact. He is able to open his eyes. LUNGS: Sounded clear to auscultation bilaterally. HEART: Sounds were regular. S1 and S2 were audible. ABDOMEN: Soft and nontender. GENITOURINARY: He had a Fischer catheter due to his neurogenic bladder. He has a colostomy present. EXTREMITIES: He had decreased tone in his lower extremities. He had ulcers over both heels, which will be described later. NEUROLOGIC: Sensation is very diminished below his waist as is movement. I detected no active movement in his legs. FUNCTIONAL EXAM: Transfers are dependent. SKIN: His skin was examined. He had a 2.5 x 2.5 cm ischial pressure ulcer over his left ischium, which was about 2 cm deep. The ulcer bed itself looks clean. He has ulcers over both heels. The right heel was about dime-sized, left heel was somewhat smaller. He had small skin abrasions over his left lateral foot. On his buttocks, he had small open areas, which had been seen at the time of his last discharge and actually looked better than when he was discharged. ASSESSMENT: 1. 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 2. Left ischial pressure ulcer. 3. Recent urinary tract infection. 4. Recent 48-day admission to [facility] for sepsis and respiratory failure. PLAN: Integrate him into a comprehensive and therapeutic rehab program with the following goals: 1. Physical Therapy will work with his and train him in transferring using a Laila lift as well as train Obi in wheelchair mobilities using his power wheelchair including teaching Obi how to do pressure relief using his power tilt mechanism. 2. Occupational Therapy will see the patient. They are going to work on training his in care in his activities of daily living including dressing and bathing. 3. A wound center consult to deal with his various pressure ulcers. We will follow their recommendations for local care. 4. Heparin for DVT prophylaxis. 5. Adequate analgesia using levorphanol and Lyrica. 6. His bowels will be regulated. 7. We will watch his blood pressure, which appears to have improved. His mental status is clearly better than it was at the time of his last admission. 8. environmental services lead will be closely involved to make sure that all the equipment and services are in place prior to discharge. 9. Training other members of the family as appropriate. 10. Home with appropriate services. ESTIMATED LENGTH OF STAY: 1 week. [id number]/[facility] #: [id number] VALERI
[2019-04-22] MEDS: levETIRAcetam TAB* 500 MG PO SCH (20:50)
[2019-04-22] MEDS: Pantoprazole TAB * 40 MG TAB PO SCH (20:56)
[2019-04-22] MEDS: Carvedilol TAB* 6.25 MG PO SCH (20:57)
[2019-04-22] MEDS: Doxazosin TAB* 2 MG PO SCH (20:58)
[2019-04-22] MEDS: Nystatin TOP POWDER* 15 GM BTL TOPICAL SCH (21:00)
--- NOTE | 2019-04-22 21:01 | CONS ---
CONSULTATION NOTE: DATE OF CONSULT: 04/22/19 The patient now is in the rehab unit. PROCEDURE: Complex placement of coude ureteral catheter. SUMMARY: This is a follow-up note on my visit and consultation on Mr. Merino yesterday. He has a chronic Fischer catheter and the catheter has been draining minimally and there was a large amount of pericatheter leakage. Yesterday, I repositioned his drainage bag. I checked on him this morning and he continues to have the same degree of pericatheter leakage. Decided to replace his Fischer. I placed an 18 [place] coude catheter. There was slight resistance at the bladder neck, but successfully introduced the catheter all the way inside his bladder. A total of about 100 cc of clear urine was then drained promptly. With the idea of checking if he would be a candidate for suprapubic catheter placement, I wanted to measure his bladder capacity. The bladder was filled by gravity and he could not hold more than 75 cc. With bladder capacity only 75 cc it would not be safe enough to preform percutaneous suprapubic catheter placement. He was kept on catheter drainage. I checked back later on in the afternoon after he was transferred to the Rehab. Unit. The Fischer catheter has been draining well clear urine, and there has not been any recurrence of the pericatheter drainage. He has been dry. The plan is to keep the present Fischer until it is time to replace it in a few weeks. Will hold off on the attempt of placing the suprapubic catheter at this time. [id number]/[facility] #: [id number] VALERI
[2019-04-23] MEDS: Heparin VIAL(*) 5000 UNITS/ML VIAL (FIVE THOUSAND) SUBCUT SCH ×3 (05:38→21:13)
[2019-04-23 06:37] LABS: ABS Basophils 0.1 10^3/ul (0-0.2); ABS Eosinophils 0.6 10^3/ul (0-0.6); ABS Lymphocytes 2.8 10^3/ul (1.0-4.8); ABS Neutrophils 5.4 10^3/ul (1.5-7.7); Eosinophil % 5.5 %; Hematocrit 27 % (42-52); Hemoglobin 9.4 g/dL (14.0-18.0); Lymphocyte % 28.5 %; Mean Corpuscular HGB Conc 34 g/dL (31-36); Mean Corpuscular Hemoglobin 29 pg (27-31); Mean Corpuscular Volume 85 fL (80-94); Mean Platelet Volume 7.1 fL (7.4-10.4); Platelet Count 285 10^3/uL (150-450); Red Blood Count 3.22 10^6 /uL (4.18-5.48); Red Cell Distribution Width 21 % (10-15); White Blood Count 9.9 10^3/uL (3.5-10.8)
[2019-04-23 06:57] LABS: Albumin 2.9 g/dL (3.2-5.2); BUN/Creatinine Ratio 26.4 (8-20); Calcium 10.1 mg/dL (8.6-10.3); EGFR African American 82.9 (>60); EGFR Non-African American 68.5 (>60); Potassium 4.3 mmol/L (3.5-5.0); Total Bilirubin 0.3 mg/dL (0.2-1.0); Total Protein 5.9 g/dL (6.4-8.9)
[2019-04-23] MEDS: LEVORPHANOL 2 MG PO SCH ×3 (07:15→21:13)
[2019-04-23] MEDS: amLODIPine TAB* 5 MG PO SCH (11:01)
[2019-04-23] MEDS: Aspirin EC TAB* 81 MG TAB.EC PO SCH (11:01)
[2019-04-23] MEDS: Carvedilol TAB* 6.25 MG PO SCH ×2 (11:01→20:15)
[2019-04-23] MEDS: Isosorbide Dinitrate TAB* 10 MG PO SCH ×3 (11:02→20:15)
[2019-04-23] MEDS: Ferrous Gluconate TAB* 324 MG TAB PO SCH (11:02)
[2019-04-23] MEDS: Cyanocobalamin TAB* 500 MCG PO SCH (11:02)
[2019-04-23] MEDS: Cholecalciferol TAB* 1000 UNITS PO SCH (11:02)
[2019-04-23] MEDS: levETIRAcetam TAB* 500 MG PO SCH ×2 (11:03→20:14)
[2019-04-23] MEDS: Nystatin TOP POWDER* 15 GM BTL TOPICAL SCH ×2 (11:04→20:44)
[2019-04-23] MEDS: Pregabalin CAP(*) 50 MG PO SCH ×3 (11:04→20:15)
[2019-04-23] MEDS: Pantoprazole TAB * 40 MG TAB PO SCH ×2 (11:04→20:15)
--- NOTE | 2019-04-23 16:25 | PN ---
Progress Note Date of Service: 04/23/19 Note: CARLOTA MONTIEL was visited. Therapy notes read and reviewed. Training is going fairly well. He is more aware but tires easily but able to stay awake for longer periods of time. Current Medications: Active Medications Generic Name Dose Route Start Last Admin Trade Name Freq PRN Reason Stop Dose Admin Acetaminophen 650 mg 04/22/19 11:28 Tylenol Tab* PO Q6H PRN MILD PAIN or TEMP > 100.4 Amlodipine Besylate 10 mg 04/23/19 09:00 04/23/19 11:01 Norvasc Tab* PO 10 mg DAILY RADHA Administration Aspirin 81 mg 04/23/19 09:00 04/23/19 11:01 Aspirin Ec Tab* PO 81 mg DAILY RADHA Administration Carvedilol 12.5 mg 04/22/19 21:00 04/23/19 11:01 Coreg Tab* PO 12.5 mg BID RADHA Administration Cholecalciferol 1,000 units 04/23/19 09:00 04/23/19 11:02 Vitamin D Tab* PO 1,000 units DAILY RADHA Administration Cyanocobalamin 1,000 mcg 04/23/19 09:00 04/23/19 11:02 Vitamin B12 Tab* PO 1,000 mcg DAILY RADHA Administration Doxazosin Mesylate 2 mg 04/22/19 21:00 04/22/19 20:58 Cardura Tab* PO 2 mg BEDTIME RADHA Administration Ferrous Gluconate 324 mg 04/23/19 09:00 04/23/19 11:02 Fergon Tab* PO 324 mg DAILY RADHA Administration Heparin Sodium (Porcine) 5,000 units 04/22/19 14:00 04/23/19 14:45 Heparin Vial(*) SUBCUT 5,000 units Q8HR RADHA Administration Isosorbide Dinitrate 10 mg 04/22/19 14:00 04/23/19 14:44 Isordil Tab* PO 10 mg TID RADHA Administration Levetiracetam 250 mg 04/22/19 21:00 04/23/19 11:03 Keppra Tab* PO 250 mg BID RADHA Administration Levorphanol Tartrate 2 mg 04/22/19 14:00 04/23/19 14:44 Levorphanol 2 Mg (Nf) PO 2 mg Q8H RADHA Administration Nystatin 1 applic 04/22/19 21:00 04/23/19 11:04 Nystatin Top Powder* TOPICAL 1 applic BID RADHA Administration Pantoprazole Sodium 40 mg 04/22/19 21:00 04/23/19 11:04 Protonix Tab* PO 40 mg BID RADHA Administration Pregabalin 50 mg 04/22/19 14:00 04/23/19 14:44 Lyrica Cap(*) PO 50 mg TID RADHA Administration Vital Signs: Vital Signs Temp Pulse Resp BP Pulse Ox 98.4 F 66 16 142/57 96 04/23/19 05:06 04/23/19 05:06 04/23/19 15:33 04/23/19 05:06 04/23/19 08:00 Lab Results: Laboratory Results - last 24 hr 04/23/19 04/23/19 06:31 06:31 WBC 9.9 RBC 3.22 L Hgb 9.4 L Hct 27 L MCV 85 MCH 29 MCHC 34 RDW 21 H Plt Count 285 MPV 7.1 L Neut % (Auto) 54.7 Lymph % (Auto) 28.5 [place] % (Auto) 9.9 Eos % (Auto) 5.5 Baso % (Auto) 1.4 Absolute Neuts (auto) 5.4 Absolute Lymphs (auto) 2.8 Absolute Monos (auto) 1.0 H Absolute Eos (auto) 0.6 Absolute Basos (auto) 0.1 Absolute Nucleated RBC 0.0 Nucleated RBC % 0.0 Sodium 138 Potassium 4.3 Chloride 110 Carbon Dioxide 22 Anion Gap 6 BUN 28 H Creatinine 1.06 Est GFR ( Amer) 82.9 Est GFR (Non-Af Amer) 68.5 BUN/Creatinine Ratio 26.4 H Glucose 78 Calcium 10.1 Total Bilirubin 0.30 AST 17 ALT 31 Alkaline Phosphatase 188 H Total Protein 5.9 L Albumin 2.9 L Globulin 3.0 Albumin/Globulin Ratio 1.0 Exam: HEENT: EOMI LUNGS: Clear anteriorly HEART: Reg rhythm ABDOMEN: Soft, +BS EXTREMITIES: tone decreased in LEs NEUROLOGIC: Greatly diminished sensation below waist, no active movement in legs SKIN: Left ischial ulcer about the same. Assessment/Plan: 1. Ependymoma with paraplegia: PT/OT. Family training 2. Acute on chronic renal failure: Cr 1.06 3. Anemia of chronic disease: Hb 9.4 4. Pressure ulcers: Local care outlined by wound team. Cannot have angiogram until sitting tolerance improves 5. Seizure on Zyvox: Tapering Keppra 6. Chronic Pain: Levorphanol 2 mg Q8. Lyrica 50 TID, may increase to 100 7. PRES: BP being monitored on Amlodipine/Coreg/Isordil 8. History of NSVT: Coreg 04/23/19 16:22 04/23/19 16:23 04/23/19 16:25 04/23/19 16:26
[2019-04-23] MEDS: Doxazosin TAB* 2 MG PO SCH (20:15)
[2019-04-24] MEDS: Heparin VIAL(*) 5000 UNITS/ML VIAL (FIVE THOUSAND) SUBCUT SCH ×3 (05:37→21:28)
[2019-04-24] MEDS: LEVORPHANOL 2 MG PO SCH ×2 (05:37→14:05)
[2019-04-24] MEDS: Nystatin TOP POWDER* 15 GM BTL TOPICAL SCH ×2 (09:51→21:47)
[2019-04-24] MEDS: Carvedilol TAB* 6.25 MG PO SCH ×2 (09:52→21:28)
[2019-04-24] MEDS: Cholecalciferol TAB* 1000 UNITS PO SCH (09:52)
[2019-04-24] MEDS: Aspirin EC TAB* 81 MG TAB.EC PO SCH (09:52)
[2019-04-24] MEDS: Ferrous Gluconate TAB* 324 MG TAB PO SCH (09:52)
[2019-04-24] MEDS: Pantoprazole TAB * 40 MG TAB PO SCH ×2 (09:53→21:28)
[2019-04-24] MEDS: amLODIPine TAB* 5 MG PO SCH (09:53)
[2019-04-24] MEDS: Cyanocobalamin TAB* 500 MCG PO SCH (09:54)
[2019-04-24] MEDS: Isosorbide Dinitrate TAB* 10 MG PO SCH ×3 (09:54→21:28)
[2019-04-24] MEDS: levETIRAcetam TAB* 500 MG PO SCH ×2 (09:54→21:28)
[2019-04-24] MEDS: Pregabalin CAP(*) 50 MG PO SCH ×3 (09:55→21:28)
--- NOTE | 2019-04-24 19:56 | PN ---
Progress Note Date of Service: 04/24/19 Note: CARLOTA MONTIEL was visited. Therapy notes read and reviewed. His family training has gone okay but his family is having trouble with getting a power shellie lift. He cannot go home without it. Current Medications: Active Medications Generic Name Dose Route Start Last Admin Trade Name Freq PRN Reason Stop Dose Admin Acetaminophen 650 mg 04/22/19 11:28 Tylenol Tab* PO Q6H PRN MILD PAIN or TEMP > 100.4 Amlodipine Besylate 10 mg 04/23/19 09:00 04/24/19 09:53 Norvasc Tab* PO 10 mg DAILY RADHA Administration Aspirin 81 mg 04/23/19 09:00 04/24/19 09:52 Aspirin Ec Tab* PO 81 mg DAILY RADHA Administration Carvedilol 12.5 mg 04/22/19 21:00 04/24/19 09:52 Coreg Tab* PO 12.5 mg BID RADHA Administration Cholecalciferol 1,000 units 04/23/19 09:00 04/24/19 09:52 Vitamin D Tab* PO 1,000 units DAILY RADHA Administration Cyanocobalamin 1,000 mcg 04/23/19 09:00 04/24/19 09:54 Vitamin B12 Tab* PO 1,000 mcg DAILY RADHA Administration Doxazosin Mesylate 2 mg 04/22/19 21:00 04/23/19 20:15 Cardura Tab* PO 2 mg BEDTIME RADHA Administration Ferrous Gluconate 324 mg 04/23/19 09:00 04/24/19 09:52 Fergon Tab* PO 324 mg DAILY RADHA Administration Heparin Sodium (Porcine) 5,000 units 04/22/19 14:00 04/24/19 14:01 Heparin Vial(*) SUBCUT 5,000 units Q8HR RADHA Administration Isosorbide Dinitrate 10 mg 04/22/19 14:00 04/24/19 14:04 Isordil Tab* PO 10 mg TID RADHA Administration Levetiracetam 250 mg 04/22/19 21:00 04/24/19 09:54 Keppra Tab* PO 250 mg BID RADHA Administration Levorphanol Tartrate 2 mg 04/24/19 22:00 Levorphanol 2 Mg (Nf) PO Q8H RADHA Nystatin 1 applic 04/22/19 21:00 04/24/19 09:51 Nystatin Top Powder* TOPICAL 1 applic BID RADHA Administration Pantoprazole Sodium 40 mg 04/22/19 21:00 04/24/19 09:53 Protonix Tab* PO 40 mg BID RADHA Administration Pregabalin 50 mg 04/22/19 14:00 04/24/19 14:04 Lyrica Cap(*) PO 50 mg TID RADHA Administration Vital Signs: Vital Signs Temp Pulse Resp BP Pulse Ox 98.3 F 75 18 139/52 95 04/24/19 16:21 04/24/19 16:21 04/24/19 16:34 04/24/19 16:21 04/24/19 16:35 Exam: HEENT: EOMI LUNGS: Clear anteriorly HEART: Reg rhythm ABDOMEN: Soft, +BS EXTREMITIES: tone decreased in LEs NEUROLOGIC: Greatly diminished sensation below waist, no active movement in legs SKIN: Left ischial ulcer about the same. Assessment/Plan: 1. Ependymoma with paraplegia: PT/OT. Family training 2. Acute on chronic renal failure: Cr 1.06 3. Anemia of chronic disease: Hb 9.4 4. Pressure ulcers: Local care outlined by wound team. Cannot have angiogram until sitting tolerance improves 5. Seizure on Zyvox: Tapering Keppra will d/c after tomorrow's last dose 6. Chronic Pain: Levorphanol 2 mg Q8. Lyrica 50 TID, may increase to 100 7. PRES: BP being monitored on Amlodipine/Coreg/Isordil 8. History of NSVT: Coreg 04/24/19 19:56
[2019-04-24] MEDS ORDERED: LEVORPHANOL 2 MG PO SCH ×2 (21:00→22:00)
[2019-04-24] MEDS: Doxazosin TAB* 2 MG PO SCH (21:28)
[2019-04-25] MEDS: Heparin VIAL(*) 5000 UNITS/ML VIAL (FIVE THOUSAND) SUBCUT SCH ×2 (05:56→13:43)
[2019-04-25 06:30] VITALS: BP 126/52
[2019-04-25] MEDS: Carvedilol TAB* 6.25 MG PO SCH (09:21)
[2019-04-25] MEDS: Cholecalciferol TAB* 1000 UNITS PO SCH (09:21)
[2019-04-25] MEDS: amLODIPine TAB* 5 MG PO SCH (09:21)
[2019-04-25] MEDS: Cyanocobalamin TAB* 500 MCG PO SCH (09:21)
[2019-04-25] MEDS: Aspirin EC TAB* 81 MG TAB.EC PO SCH (09:21)
[2019-04-25] MEDS: levETIRAcetam TAB* 500 MG PO SCH (09:22)
[2019-04-25] MEDS: Isosorbide Dinitrate TAB* 10 MG PO SCH ×2 (09:22→13:42)
[2019-04-25] MEDS: Ferrous Gluconate TAB* 324 MG TAB PO SCH (09:22)
[2019-04-25] MEDS: Pregabalin CAP(*) 50 MG PO SCH ×2 (09:23→13:56)
[2019-04-25] MEDS: LEVORPHANOL 2 MG PO SCH ×2 (09:26→13:43)
[2019-04-25] MEDS: Pantoprazole TAB * 40 MG TAB PO SCH (09:26)
[2019-04-25] MEDS: Nystatin TOP POWDER* 15 GM BTL TOPICAL SCH (10:27)
--- NOTE | 2019-05-18 02:27 | DS ---
DISCHARGE SUMMARY: DATE OF ADMISSION: 04/22/19 DATE OF DISCHARGE: 04/25/19 DISCHARGE DIAGNOSES: 1. 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 2. Pressure ulcer, left ischium. 3. Urinary tract infection. 4. Hypertension. 5. Sleep apnea. 6. Chronic kidney disease. 7. Coronary artery disease. 8. Neurogenic bladder. 9. Seizure secondary to Zyvox. 10. Posterior reversible encephalopathy syndrome. 11. History of non-sustained ventricular tachycardia. HISTORY OF ILLNESS AND HOSPITAL COURSE: For complete history of the events leading up to his rehab stay, please see the history and physical dictated by me on 04/22/19. While on the rehab unit, the patient underwent family training with his , Deedee. On a daily basis, the patient was seen by physical and occupational therapy with his training him on how to transfer from the bed to the wheelchair and she was also trained in how to use a Laila. Unfortunately , we could not get a power Laila to send the patient home with. The patient is being transferred to the swing bed status to continue rehab on a slightly slower scale until he is able return home with his power Laila. DISCHARGE DIET: Regular. [place]POSITION[place] [facility] CONDITION AT DISCHARGE: Stable DISCHARGE MEDICATIONS: 1. Coreg 12.5 mg twice daily. 2. Cardura 2 mg at bedtime. 3. Heparin 5000 units subcutaneously every 8 hours. 4. Isordil 10 mg 3 times a day. 5. Keppra 250 mg at bedtime tonight, then stopping. 6. Levorphanol 2 mg every 8 hours scheduled. 7. Aspirin 81 mg daily. 8. Norvasc 10 mg daily. 9. The patient will have ongoing family training with Physical Therapy and Occupational Therapy. FOLLOWUP: The patient will follow up with his pain doctor, Dr. Castro as well as his urologist, Dr. Castaneda as well as his primary care provider, Dr. Griffiths after discharge. [id number]/[facility] #: [id number] VALERI
== END 2019-04-25 16:15 | disposition swing bed (61) | DRG 52 ==
LOC: UNDOADMIN 08:32 → PMRU 08:32
PROVIDERS: ADMIT Physical Medicine & Rehabilitation; ATTEND Physical Medicine & Rehabilitation
PROC: F07Z5ZZ Bed Mobility Treatment (ICD-10-PCS; principal; 2019-04-22)
PROC: F07Z9ZZ Gait Training/Functional Ambulation Treatment (ICD-10-PCS; 2019-04-22)
PROC: F07Z8ZZ Transfer Training Treatment (ICD-10-PCS; 2019-04-22)
PROC: F07Z4ZZ Wheelchair Mobility Treatment (ICD-10-PCS; 2019-04-22)
PROC: F08Z0ZZ Bathing/Showering Techniques Treatment (ICD-10-PCS; 2019-04-22)
PROC: F08Z1ZZ Dressing Techniques Treatment (ICD-10-PCS; 2019-04-22)
PROC: F08Z3ZZ Feeding/Eating Treatment (ICD-10-PCS; 2019-04-22)
PROC: 0T9B70Z Drainage of Bladder with Drainage Device, Via Natural or Artificial Opening (ICD-10-PCS; 2019-04-22)
DX: G82.21 Paraplegia, complete (principal); L89.223 Pressure ulcer of left hip, stage 3; I67.83 Posterior reversible encephalopathy syndrome; C70.1 Malignant neoplasm of spinal meninges; I47.2 Ventricular tachycardia; N17.9 Acute kidney failure, unspecified; L89.229 Pressure ulcer of left hip, unspecified stage; L89.210 Pressure ulcer of right hip, unstageable; L89.156 Pressure-induced deep tissue damage of sacral region; L89.326 Pressure-induced deep tissue damage of left buttock; L89.626 Pressure-induced deep tissue damage of left heel; L89.616 Pressure-induced deep tissue damage of right heel; L89.896 Pressure-induced deep tissue damage of other site; D63.1 Anemia in chronic kidney disease; N18.3 Chronic kidney disease, stage 3 (moderate); G47.33 Obstructive sleep apnea (adult) (pediatric); G40.909 Epilepsy, unspecified, not intractable, without status epilepticus; G89.29 Other chronic pain; B37.2 Candidiasis of skin and nail; I12.9 Hypertensive chronic kidney disease with stage 1 through stage 4 chronic kidney disease, or unspecified chronic kidney disease; N31.9 Neuromuscular dysfunction of bladder, unspecified; I25.10 Atherosclerotic heart disease of native coronary artery without angina pectoris; Z79.82 Long term (current) use of aspirin; Z79.899 Other long term (current) drug therapy; Z88.8 Allergy status to other drugs, medicaments and biological substances; Z93.3 Colostomy status
CPT/HCPCS: 36415; 80053; 85025; A9270-GY; J1644

== ENCOUNTER 2019-04-25 17:49 | Inpatient (IN) | payer MEDICARE ==
[2019-04-25] MEDS ORDERED: Acetaminophen TAB* 325 MG PO PRN (17:52)
[2019-04-25] MEDS ORDERED: Ondansetron INJ* 2 MG/ML VIAL IV PRN (17:52)
[2019-04-25] MEDS ORDERED: Enoxaparin(*) 40 MG/0.4 ML SYR SUBCUT SCH (18:00)
--- NOTE | 2019-04-25 20:24 | HP ---
CC: Dr. Molly Griffiths * ADMISSION HISTORY AND PHYSICAL: DATE OF ADMISSION: 04/25/19 PRIMARY CARE PROVIDER: Dr. Molly Griffiths. MY ATTENDING WHILE IN THE HOSPITAL: Dr. Alma Alexandra.* (DICTATED BY MELANIE MARX) CHIEF COMPLAINT: Ambulatory function, swing status. HISTORY OF PRESENT ILLNESS: Mr. Merino is a 73-year-old male with past medical history significant for ependymoma with lower extremity paralysis and chronic nonhealing sacral wounds for which he has been hospitalized for many months over the past several years as well as chronic pain and recent diagnosis of PRES with seizures, who has been initially in [facility] for several months on antibiotics related to his infection of his sacral wound. During that time, he had very high blood pressure, seizures and was started on Keppra. This was believed to have been possibly related to an adverse linezolid effect. The patient was in [facility] for several months. During that time, he was started on several blood pressure medications and his blood pressure has remained in the normal range. He was transferred to the PMR unit at [facility] where he was undergoing physical and occupational therapy. While there, he developed urosepsis related to a catheter and spent 8 days on the medical unit and was treated with Zosyn for pseudomonas and klebsiella, which grew in his urine. He returned to his baseline after that and was able to go back down to [facility]. During that time, he continued to progress with physical therapy and was deemed ready to return home with the assistance of only his ; however, she needs an electrically powered mechanical Laila lift to make this happen, which is currently on order and is being delivered from [employer]. Due to being unsafe for the patient to be returned home, the patient was transferred back up to the medical floor for swing status. The patient is currently asymptomatic and his pain is under good control with a combination of levorphanol, Lyrica and his dorsal spinal stimulator. PAST MEDICAL HISTORY: Ependymoma; lower extremity paralysis; neurogenic bladder , chronic Fischer catheter; numerous catheter-associated urinary tract infections ; history of PRES; seizures, possible drug effect; obstructive sleep apnea; chronic nonhealing sacral wounds; hypertension; chronic kidney disease; anemia of chronic disease; chronic pain; history of carotid artery stenosis; possible coronary artery disease. PAST SURGICAL HISTORY: Multiple spinal surgeries, colostomy placement, muscular flap of his sacral wound, multiple debridements of his sacral wound. MEDICATIONS: Given on the PMR unit: 1. Tylenol 650 mg p.o. q.6 hours as needed. 2. Amlodipine 10 mg p.o. daily. 3. Aspirin 81 mg p.o. daily. 4. Carvedilol 12.5 mg p.o. b.i.d. 5. Vitamin D3 1000 units p.o. daily. 6. Vitamin B12 1000 mcg p.o. daily. 7. Doxazosin 2 mg p.o. at bedtime. 8. Ferrous gluconate 325 mg p.o. at bedtime. 9. Heparin vial 5000 units subcutaneous daily. 10. Isosorbide dinitrate 10 mg p.o. t.i.d. 11. Keppra 250 mg p.o. b.i.d., last dose 04/25/19. 12. Levorphanol 2 mg p.o. t.i.d. 13. Nystatin topical powder 1 application topical b.i.d. 14. Pantoprazole 40 mg p.o. daily. 15. Pregabalin 50 mg p.o. t.i.d. ALLERGIES: STATINS. FAMILY HISTORY: The patient's father of Parkinson's. The patient's mother recently near 100 of old age. SOCIAL HISTORY: The patient lives with his , who is his healthcare proxy and primary caregiver. 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 The patient denies any alcohol abuse, tobacco abuse, or drug abuse. The patient's surrogate decision maker will be his , Lacho Merino. REVIEW OF SYSTEMS: A 10-point review of systems was reviewed and is negative except as above in the HPI. PHYSICAL EXAMINATION GENERAL: The patient is a 73-year-old male, who appears stated age and sitting comfortably in bed, in no acute distress. VITAL SIGNS: At the time of evaluation, temperature 98.0, pulse rate 61, respiratory rate 12, oxygen saturation 95% on room air, blood pressure 126/52. HEENT: Head: Normocephalic, atraumatic. Sclerae anicteric. No conjunctival injection. Nasal mucosa moist. Oral mucosa moist. No pharyngeal erythema, discharge, or exudate. NECK: Supple, nontender. No lymphadenopathy. No carotid bruits auscultated. No JVD. RESPIRATORY: Clear to auscultation bilaterally. No wheezes, rales, or rhonchi. Good air exchange bilaterally. CARDIAC: Regular rate and rhythm. No clicks, murmurs, gallops, or rubs. Pulses are 2+ in the bilateral dorsalis pedis, posterior tibialis, and radial areas. Trace bilateral lower extremity edema noted. ABDOMEN: Soft, nontender, nondistended. Bowel sounds present and normoactive in all 4 quadrants. No hepatosplenomegaly. No abdominal bruits auscultated. Colostomy in place draining formed brown stool. GENITOURINARY: No suprapubic or CVA tenderness. Fischer in place draining clear yellow urine. NEURO: No feeling below the waist consistent with prior exams. Strength 4/5 in bilateral upper extremities. Cranial nerves II through XII intact. Alert and oriented x3. PSYCHIATRIC: Pleasant and cooperative. LABORATORY DATA: Most recent laboratory data: White blood cell count 9.9, hemoglobin 9.4, platelet count 285. Sodium 138, potassium 4.3, chloride 110, carbon dioxide 22, anion gap 6, BUN 28, creatinine 1.06, glucose 78. AST 17, ALT 31, alkaline phosphatase 188. Protein 5.9, albumin 3.9, globulin 3.0. ASSESSMENT AND PLAN: Impression: Mr. Merino is a 73-year-old male with a long complex past medical history mainly stemming from complications of an ependymoma leaving him with bilateral lower extremity paralysis. 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 The patient has been undergoing rehab and is improving, but is in need of a Laila lift, which will be delivered next Sunday which is and until that time he will be monitored on swing status on the medical unit. 1. Debility related to chronic long-term hospitalization. The patient is improving, but is still needing Laila lift for transfers, which will be delivered to his home next week. The patient has been on PMR unit and has been progressing. The patient has lost much of his upper body strength. The goal is for him to be able to return home to continue to work towards being able to transfer on a slide board which he is not able to do, until that time he will need a Laila lift as above. 2. Ependymoma with chronic pain syndrome. Continue the patient's levorphanol, Lyrica and dorsal spinal stimulator, which worked to control his pain down to approximately a 4. Without these interventions or with alternative interventions, the patient's pain can go up to a 10 or the patient gets significantly more sedated leading to worsening in his sacral wounds. The patient should follow up outpatient with the wound clinic. 3. Neurogenic bladder. Continue the patient's indwelling Fischer catheter. Monitor closely for catheter-assisted urinary tract infections with frequent vital signs. 4. Seizure disorder. The patient is being discontinued on his Keppra after tonight's dose. This is believed to be a medication side effect in combination with posterior reversible encephalopathy syndrome. The patient's blood pressure is currently very well controlled. The patient's mental state is approximately back to where it was previously. 5. Chronic lower extremity wounds. Appreciate Wound Care consult. Continue dressing changes as previously elucidated on PMRU. 6. Chronic kidney disease, at baseline. Check labs in the morning. 7. Coronary artery disease/carotid artery disease. The patient is currently being treated with aspirin and Coreg for secondary prevention. The patient has a STATIN allergy. 8. Neurogenic bowel. Due to concerns about healing of his sacral wound, the patient previously had a colostomy placed which is functioning. 9. Hypertension. The patient has a history of posterior reversible encephalopathy syndrome. Continue the patient's amlodipine, doxazosin, isosorbide dinitrate, and carvedilol. 10. Anemia of chronic disease. Check labs in the morning. The patient's hemoglobin has been increasing since he has been in the hospital. Continue the patient's ferrous gluconate, though this is likely of limited utility. 11. FEN: The patient will have a regular unrestricted diet. The patient has no indications for fluids at this time. 12. DVT prophylaxis: Lovenox subcu. 13. Disposition: Swing status. TIME SPENT: Approximately 60 minutes was spent on the admission of this patient , 30 of which was spent [id number] with the patient obtaining history and physical and discussing treatment plan. This plan was discussed with my attending, Dr. Alma Alexandra, and she is in agreement. MELANIE MARX [id number]/[facility] #: [id number] VALERI
[2019-04-25] MEDS: Pregabalin CAP(*) 50 MG PO SCH (20:33)
[2019-04-25] MEDS ORDERED: levETIRAcetam TAB* 500 MG PO ONE (21:00)
[2019-04-25] MEDS: Isosorbide Dinitrate TAB* 10 MG PO SCH (21:48)
[2019-04-25] MEDS: LEVORPHANOL 2 MG PO SCH (21:48)
[2019-04-25] MEDS: Carvedilol TAB* 6.25 MG PO SCH (21:49)
[2019-04-25] MEDS: Doxazosin TAB* 2 MG PO SCH (21:49)
[2019-04-25] MEDS: Pantoprazole TAB * 40 MG TAB PO SCH (21:50)
[2019-04-25] MEDS: Enoxaparin(*) 40 MG/0.4 ML SYR SUBCUT SCH (21:51)
[2019-04-25] MEDS: Nystatin TOP POWDER* 15 GM BTL TOPICAL SCH (21:51)
[2019-04-26 06:03] LABS: ABS Basophils 0.1 10^3/ul (0-0.2); ABS Eosinophils 0.5 10^3/ul (0-0.6); ABS Lymphocytes 3.1 10^3/ul (1.0-4.8); Eosinophil % 6.1 %; Hematocrit 26 % (42-52); Hemoglobin 8.8 g/dL (14.0-18.0); Lymphocyte % 35.7 %; Mean Corpuscular HGB Conc 34 g/dL (31-36); Mean Corpuscular Hemoglobin 29 pg (27-31); Mean Corpuscular Volume 85 fL (80-94); Mean Platelet Volume 6.9 fL (7.4-10.4); Nucleated Red Blood Cells % 0.1; Platelet Count 313 10^3/uL (150-450); Red Blood Count 3.03 10^6 /uL (4.18-5.48); Red Cell Distribution Width 21 % (10-15); White Blood Count 8.8 10^3/uL (3.5-10.8)
[2019-04-26 06:15] LABS: BUN/Creatinine Ratio 31.5 (8-20); Calcium 10.3 mg/dL (8.6-10.3); EGFR African American 81.1 (>60); Magnesium 1.9 mg/dL (1.9-2.7); Potassium 4.3 mmol/L (3.5-5.0)
[2019-04-26] MEDS: Collagenase 250 UNITS/GM OINT* 1 APPLIC OINT TOPICAL SCH (09:35)
[2019-04-26] MEDS: Carvedilol TAB* 6.25 MG PO SCH ×2 (09:57→19:39)
[2019-04-26] MEDS: Cholecalciferol TAB* 1000 UNITS PO SCH (09:57)
[2019-04-26] MEDS: Ferrous Gluconate TAB* 324 MG TAB PO SCH (09:57)
[2019-04-26] MEDS: Aspirin EC TAB* 81 MG TAB.EC PO SCH (09:57)
[2019-04-26] MEDS: LEVORPHANOL 2 MG PO SCH ×3 (09:57→19:40)
[2019-04-26] MEDS: amLODIPine TAB* 5 MG PO SCH (09:57)
[2019-04-26] MEDS: Isosorbide Dinitrate TAB* 10 MG PO SCH ×3 (09:58→19:39)
[2019-04-26] MEDS: Pregabalin CAP(*) 50 MG PO SCH ×3 (09:58→19:38)
[2019-04-26] MEDS: Pantoprazole TAB * 40 MG TAB PO SCH ×2 (09:58→19:38)
[2019-04-26] MEDS: Cyanocobalamin TAB* 500 MCG PO SCH (09:58)
[2019-04-26] MEDS: Nystatin TOP POWDER* 15 GM BTL TOPICAL SCH ×2 (10:01→19:41)
[2019-04-26] MEDS: Enoxaparin(*) 40 MG/0.4 ML SYR SUBCUT SCH (19:40)
[2019-04-26] MEDS: Doxazosin TAB* 2 MG PO SCH (19:40)
[2019-04-27] MEDS: Cyanocobalamin TAB* 500 MCG PO SCH (09:05)
[2019-04-27] MEDS: Carvedilol TAB* 6.25 MG PO SCH ×2 (09:05→20:33)
[2019-04-27] MEDS: Aspirin EC TAB* 81 MG TAB.EC PO SCH (09:05)
[2019-04-27] MEDS: Cholecalciferol TAB* 1000 UNITS PO SCH (09:05)
[2019-04-27] MEDS: Pregabalin CAP(*) 50 MG PO SCH ×3 (09:05→20:33)
[2019-04-27] MEDS: Pantoprazole TAB * 40 MG TAB PO SCH ×2 (09:05→20:33)
[2019-04-27] MEDS: Ferrous Gluconate TAB* 324 MG TAB PO SCH (09:05)
[2019-04-27] MEDS: LEVORPHANOL 2 MG PO SCH ×3 (09:05→20:33)
[2019-04-27] MEDS: amLODIPine TAB* 5 MG PO SCH (09:05)
[2019-04-27] MEDS: Nystatin TOP POWDER* 15 GM BTL TOPICAL SCH ×2 (09:06→20:41)
[2019-04-27] MEDS: Isosorbide Dinitrate TAB* 10 MG PO SCH ×3 (09:06→20:33)
[2019-04-27] MEDS: Collagenase 250 UNITS/GM OINT* 1 APPLIC OINT TOPICAL SCH (14:06)
[2019-04-27] MEDS: Doxazosin TAB* 2 MG PO SCH (20:33)
[2019-04-27] MEDS: Enoxaparin(*) 40 MG/0.4 ML SYR SUBCUT SCH (20:35)
[2019-04-28] MEDS: Aspirin EC TAB* 81 MG TAB.EC PO SCH (08:53)
[2019-04-28] MEDS: LEVORPHANOL 2 MG PO SCH ×3 (08:53→20:48)
[2019-04-28] MEDS: amLODIPine TAB* 5 MG PO SCH (08:53)
[2019-04-28] MEDS: Carvedilol TAB* 6.25 MG PO SCH ×2 (08:54→20:48)
[2019-04-28] MEDS: Isosorbide Dinitrate TAB* 10 MG PO SCH ×3 (08:55→20:50)
[2019-04-28] MEDS: Pantoprazole TAB * 40 MG TAB PO SCH ×2 (08:55→20:49)
[2019-04-28] MEDS: Cholecalciferol TAB* 1000 UNITS PO SCH (08:55)
[2019-04-28] MEDS: Ferrous Gluconate TAB* 324 MG TAB PO SCH (08:55)
[2019-04-28] MEDS: Pregabalin CAP(*) 50 MG PO SCH ×3 (08:56→20:49)
[2019-04-28] MEDS: Cyanocobalamin TAB* 500 MCG PO SCH (08:56)
[2019-04-28] MEDS: Nystatin TOP POWDER* 15 GM BTL TOPICAL SCH ×2 (09:06→20:53)
[2019-04-28] MEDS: Collagenase 250 UNITS/GM OINT* 1 APPLIC OINT TOPICAL SCH (09:06)
[2019-04-28] MEDS: Doxazosin TAB* 2 MG PO SCH (20:49)
[2019-04-28] MEDS: Enoxaparin(*) 40 MG/0.4 ML SYR SUBCUT SCH (20:51)
[2019-04-29] MEDS: Isosorbide Dinitrate TAB* 10 MG PO SCH ×3 (10:13→20:36)
[2019-04-29] MEDS: Carvedilol TAB* 6.25 MG PO SCH ×2 (10:13→20:36)
[2019-04-29] MEDS: Aspirin EC TAB* 81 MG TAB.EC PO SCH (10:13)
[2019-04-29] MEDS: LEVORPHANOL 2 MG PO SCH ×3 (10:13→20:36)
[2019-04-29] MEDS: Cholecalciferol TAB* 1000 UNITS PO SCH (10:13)
[2019-04-29] MEDS: Ferrous Gluconate TAB* 324 MG TAB PO SCH (10:14)
[2019-04-29] MEDS: Pregabalin CAP(*) 50 MG PO SCH ×3 (10:14→20:36)
[2019-04-29] MEDS: Pantoprazole TAB * 40 MG TAB PO SCH ×2 (10:14→20:36)
[2019-04-29] MEDS: amLODIPine TAB* 5 MG PO SCH (10:14)
[2019-04-29] MEDS: Collagenase 250 UNITS/GM OINT* 1 APPLIC OINT TOPICAL SCH (10:18)
[2019-04-29] MEDS: Nystatin TOP POWDER* 15 GM BTL TOPICAL SCH ×2 (10:21→20:37)
[2019-04-29] MEDS: Cyanocobalamin TAB* 500 MCG PO SCH (15:15)
--- NOTE | 2019-04-29 16:28 | CONSULT ---
Subjective Date of Service: 04/29/19 Interval History: Mr. 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 He presented to [facility] on 02/23/19 with complaints of fever for 3 days and concerns of an infected pressure injury and consult with Dr. Yassine Blankenship ( previously performed flap reconstruction). He was admitted to [facility] for a sacral pressure injury and underwent debridement (by Dr. Vonnie Virk ) and ABX. He developed Posterior Reversible Encephalopathy Syndrome (PRES) and seizures felt to be secondary to Linezolid, and was intubated for 1 week for acute respiratory failure. He stayed at [place] for over 40 days. He was felt to require rehab and was admitted to [facility] on 04/09/19. He developed sepsis secondary to a UTI and was transferred to the medical floor on 04/13/19, he was discharged back to 04/22/19. He was discharged from [facility] to Swing status on . Patient presented to [facility] from [facility] with multiple pressure injuries including; bilateral heels, left ischium, right hip, sacrum. Also noted to have ecchymosis to the right ankle. He has developed deep tissue injuries to the right heel, pressure injury to the right heel, and buttocks with some shearing and deep tissue injuries to the buttocks during his hospitalization. Patient seen and examined at bedside. Family History: Unchanged from Admission Social History: Unchanged from Admission Past Medical History: Unchanged from Admission Review of Systems - Measurements Intake and Output: Intake and Output Last 24 Hours 04/27/19 04/28/19 04/29/19 04/30/19 06:59 06:59 06:59 06:59 Intake Total 0449 392 0656 710 Output Total 1890 1400 2025 300 Balance -560 -1160 -825 410 Intake: Oral 6284 092 3927 710 Output: Urine 350 Fischer 0 1400 1275 300 Colostomy 0 400 Other: Estimated Void Small Medium Date of Last Bowel [id number] Movement # Bowel Movements 1 Estimated Stool Amount Medium # Voids 1 - Review of Systems Constitutional Symptoms: Positive: Other - Chills Negative: Fever Dermatology: Positive: Other - Multiple skin issues Objective Active Medications: Acetaminophen (Tylenol Tab*) 650 mg PO Q6H PRN Reason: MILD PAIN or TEMP > 100.4 Amlodipine Besylate (Norvasc Tab*) 10 mg PO DAILY [facility] Aspirin (Aspirin Ec Tab*) 81 mg PO DAILY [facility] Carvedilol (Coreg Tab*) 12.5 mg PO BID [facility] Cholecalciferol (Vitamin D Tab*) 1,000 units PO DAILY [facility] Collagenase (Santyl 250 Units/Gm Oint*) 1 applic TOPICAL DAILY [facility] Cyanocobalamin (Vitamin B12 Tab*) 1,000 mcg PO DAILY [facility] Doxazosin Mesylate (Cardura Tab*) 2 mg PO BEDTIME [facility] Enoxaparin Sodium (Lovenox(*)) 40 mg SUBCUT 2100 [facility] Ferrous Gluconate (Fergon Tab*) 324 mg PO DAILY [facility] Influenza Virus Vaccine (Fluarix Quad 0354-2042 Syr) 0.5 ml IM .ONCE ONE Isosorbide Dinitrate (Isordil Tab*) 10 mg PO TID [facility] Levorphanol Tartrate (Levorphanol 2 Mg (Nf)) 2 mg PO TID [facility] Nystatin (Nystatin Top Powder*) 1 applic TOPICAL BID [facility] Ondansetron HCl (Zofran Inj*) 4 mg IV Q6H PRN Reason: NAUSEA Pantoprazole Sodium (Protonix Tab*) 40 mg PO BID [facility] Pregabalin (Lyrica Cap(*)) 100 mg PO TID [facility] Vital Signs 04/29/19 07:00 Temperature 98.3 F Temperature Oral Source Pulse Rate 58 Respiratory 18 Rate Blood Pressure 123/58 (mmHg) Blood Pressure 79 Mean O2 Sat by Pulse 95 Oximetry Patient on Room Yes Air Oxygen Devices in Use Now: None Appearance: NAD, laying in bed Ears/Nose/Mouth/Throat: Mucous Membranes Moist Respiratory: Symmetrical Chest Expansion and Respiratory Effort Extremities: No Edema Skin: - - See skin note below Neurological: Alert and Oriented x 3 Result Diagrams: 05/04/19 06:19 05/04/19 06:19 Additional Lab and Data: Laboratory Tests 04/20/19 07:35 Prealbumin 28 Diagnostic Imagin. Exam Date: 02/11/19 - VL ANK/BRACHIAL INDICES FINDINGS: The ankle brachial index on the right was 0.39 and on the left was 0.80. The ankle-brachial indices on the prior study were 0.93 and 0.91 respectively. There is monophasic flow within the right posterior tibial artery and monophasic flow within the right dorsalis pedis artery. There is biphasic flow within the left posterior tibial artery and biphasic flow within the left dorsalis pedis artery. IMPRESSION: SIGNIFICANTLY REDUCED ANKLE-BRACHIAL INDICES AND WAVEFORMS MORE SEVERE IN THE RIGHT LOWER EXTREMITY. CONSIDER A CT ANGIOGRAM OF THE AORTA AND LOWER EXTREMITIES FOR FURTHER EVALUATION. 2. Exam Date: 02/11/19 - MRI LOWER EXTREMITY RIGHT W/O IMPRESSION: SOFT TISSUE SWELLING AND SOFT TISSUE ULCER, NO SPECIFIC EVIDENCE FOR OSTEOMYELITIS. Skin Deviation Note - Skin Deviation Findings Left medial heel (please note that the picture is incorrectly labeled right heel ) - There is a superficial open area, measures 1 cm x 0.6 cm x 0.1 cm. There is adherent white slough in the wound base and a small amount of pink granulation tissue. The surrounding skin is intact, pink and slightly blanchable. The heel is also boggy. Right medial heel - There is a wound that measures 2.2 cm x 2.7 cm x 0.1 cm. The wound base is mostly pink granulation tissue. There is a small area of honey colored slough (in the darker area). There is dark purplish discoloration in the wound base and to the intact skin towards the plantar aspect of the foot. The surrounding skin is intact. Right medial 1st toe - The is a small u shaped area of dark purple discoloration , the skin is intact. This measures 0.8 cm x 0.9 cm. No drainage. The surrounding skin is intact. Right posterior/lateral heel (achilles) - There is an intact blister, measures 2.5 cm x 2.5 cm. There is purplish discoloration to the skin. In the center of this is a white/faria area that is fluctulant, measures 1.4 cm x 1.2 cm. The surrounding skin intact. No drainage. Right lateral ankle - There is an area of slight purplish discoloration, measures 2.5 cm x 2 cm. There is a small area of fluctuance, measures 0.5 cm x 0.5 cm. The surrounding skin is intact, with some dry and flaky skin. No drainage. Right lateral hip - There is a shallow wound, measures 1.2 cm x 1.2 cm x 0.1 cm. The wound base is mostly pink granulation tissue, with a small amount of adherent yellow slough. The surrounding skin is intact. There is no drainage. Buttocks - The total areas of erythema measures 7 cm x 31 cm. There is a superficial open areas, the area near midline is 4. cm x 2.2 cm x 0.1 cm. The wound base is red granulation tissue. The area on the right measures, 1 cm x 2 cm. measures 2 cm x 1.5 cm x 0.1 cm. The wound bed with red granulation tissue. The surrounding skin is intact, but with erythema. and macerated. There is a small amount of serous drainage. Sacrum/lower back - There is mild erythema that is blanchable in the cleft that is present, this area measures 6 cm x 4 cm. The skin is intact. No drainage. Left ischium - The wound measures 2 cm x 4 cm x 2 cm. The wound base initially had yellow slough present, this was easily removed with a cotton tipped applicator. The wound bed is beefy red granulation tissue. The periwound is macerated. The surrounding skin with slight blanchable erythema. There is a small amount of clear drainage. No odor. Wound Problem/Plan Assessment: Mr. 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 He presented to [facility] on 02/23/19 with complaints of fever for 3 days and concerns of an infected pressure injury and consult with Dr. Yassine Blankenship ( previously performed flap reconstruction). He was admitted to [facility] for a sacral pressure injury and underwent debridement (by Dr. Vonnie Virk ) and ABX. He developed Posterior Reversible Encephalopathy Syndrome (PRES) and seizures felt to be secondary to Linezolid, and was intubated for 1 week for acute respiratory failure. He stayed at [place] for over 40 days. He was felt to require rehab and was admitted to [facility] on 04/09/19. He developed sepsis secondary to a UTI and was transferred to the medical floor on 04/13/19, he was discharged back to 04/22/19. He was discharged from [facility] to Swing status on . He has multiple areas of skin breakdown. 1. Right medial heel unstageable pressure injury, with associated deep tissue injury. The original wound has been present since November 2018, he started to follow with the [facility] for this wound in January 2019. Underwent ABIs in February showing reduced ABIs right > left. Also had an MRI of the foot in February 2019, showing no sign of osteomyelitis. He was suppose to have a CTA with runoff and referral to Dr. Mckinley, but it appears that was neither were ever completed. The initial wound had healed last week, but is now unstageable with an associated deep tissue injury. Recommend applying Santyl to the area of slough, followed by calcium alginate, and rolled gauze, and change daily or as needed for drainage. Keep the heels elevated off the bed, use multipodus boots and spankos. Consider referral to Vascular outpatient as previously recommended. Should follow with wound clinic as outpatient. 2. Right lateral ankle and right posterior/lateral heel. There is an area of discoloration, this represents deep tissue injuries. The right posterior/ lateral heel deep tissue injury has developed 1-2 weeks ago. Recommend leaving open to air as there are no open areas or cover with rolled gauze from the heel dressing. Keep the heels elevated off the bed, use multipodus boots and spankos. Consider referral to Vascular outpatient as previously recommended. Should follow with wound clinic as outpatient. 3. Left medial heel unstageable pressure injury. Unclear how long this has been present. Ms. Merino reports this has been present since January, but was not previously documented by the [facility] in January and February when he was seen there last. See LINA results above. Recommend applying Santyl followed by calcium alginate, and rolled gauze, and change every day or as needed for drainage. Keep the heels elevated off the bed, use multipodus boots and spankos. Consider referral to Vascular outpatient. If wound continues to be present and not healing, should consider MRI to evaluate for Osteomyelitis. 4. Left ischium stage 3 pressure injury. This has been present since November 2018, he started to follow with the [facility] for this wound in January 2019. This is reported to have wound cultures with MRSA and VRE while in [place]. He was treated with Linezolid and Zosyn, unclear for how long. The surrounding skin is slightly macerated today. Recommend gently packing the wound with calcium alginate rope, and cover with a border foam gauze (Optifoam) and change daily or as needed for drainage. The the surrounding skin remains macerated, change to ABD pad dressing in place of border gauze. Frequent turning and repositioning. Do not sit up in a chair for more than 1-2 hours at a time if possible. Use Roho cushion in wheel chair when up OOB. Should be referred back to the [facility] (or wound clinic of choice ) at discharge. 5. Sacral/lower back stage 2 pressure injury, healed. The wound has healed, and there is slight erythema to the skin in this area. Recommend applying barrier cream (orange top) as needed. If the area appears to have a fungal infection recommend discontinuing barrier cream and use Nystatin powder twice daily. Frequent turning and repositioning. 6. Sacral/buttocks superficial wounds with deep tissue injury. Secondary to pressure, shearing, and moisture. These have been present since 04/12/19. Prealbumin 28 on 04/20/19. Recommend using barrier cream as needed. Do NOT use a border foam gauze (Optifoam) in this area, if there is a large amount of drainage from the wound use an ABD pad and set over the wound, avoid use of tape if possible. Use a lifting device to move in bed to prevent further shearing or friction injuries. Frequent turning and repositioning. 7. Right hip unstageble pressure injury. Unclear how long this has been present , but developed after last seen at the wound clinic in February as not documented at that time (02/13/19). Recommend applying Santyl to the wound base once daily, followed by a border foam dressing (Optifoam) and change daily or as needed for drainage. Discontinue Santyl once the slough is gone and cover with a border foam gauze (Optifoam) and change every every day or as needed. Frequent turning and repositioning. Do not sit up in a chair for more than 1-2 hours at a time if possible. Use Roho cushion in wheel chair when up OOB. 8. Right 1st toe, deep tissue injury. Suspect injury is secondary to the metal clip attached to his bed controls. Recommend protecting the area. 9. Anterior urethral injury; acquired latrogenic hypospadias. bisque grader related pressure injury to the penis secondary to the urinary catheter. This is not new and has been documented by Urology in the past. Use caution to keep pressure off the urinary catheter tube to prevent further breakdown. 10. Paraplegia secondary to spinal ependymoma. With neurogenic bladder and a chronic indwelling urinary catheter. Colostomy present. 11. Diet. Regular diet. 12. Code Status. DNR. 13. Disposition. Inpatient, Swing status, disposition per Primary team. TIME SPENT: Time for this wound consultation was 70 minutes and 60 minutes was spent at bedside with the patient and discussing progression of wounds; removing old dressings; assessing, measuring, and photographing the wounds; reapplying new dressings. Is Patient a Wound Clinic Patient: Yes Attending: Carin Anthony
[2019-04-29] MEDS: Doxazosin TAB* 2 MG PO SCH (20:36)
[2019-04-29] MEDS: Enoxaparin(*) 40 MG/0.4 ML SYR SUBCUT SCH (20:36)
[2019-04-30] MEDS ORDERED: Influenza VAC *QUAD* 2019-20* 0.5 ML SYRINGE IM ONE (09:00)
[2019-04-30] MEDS: Carvedilol TAB* 6.25 MG PO SCH ×2 (10:00→21:31)
[2019-04-30] MEDS: amLODIPine TAB* 5 MG PO SCH (10:00)
[2019-04-30] MEDS: Aspirin EC TAB* 81 MG TAB.EC PO SCH (10:00)
[2019-04-30] MEDS: Ferrous Gluconate TAB* 324 MG TAB PO SCH (10:00)
[2019-04-30] MEDS: Cholecalciferol TAB* 1000 UNITS PO SCH (10:00)
[2019-04-30] MEDS: Isosorbide Dinitrate TAB* 10 MG PO SCH ×3 (10:01→21:31)
[2019-04-30] MEDS: Pantoprazole TAB * 40 MG TAB PO SCH ×2 (10:01→21:31)
[2019-04-30] MEDS: Pregabalin CAP(*) 50 MG PO SCH ×3 (10:01→21:29)
[2019-04-30] MEDS: Cyanocobalamin TAB* 500 MCG PO SCH (10:02)
[2019-04-30] MEDS: LEVORPHANOL 2 MG PO SCH ×3 (10:27→21:31)
[2019-04-30] MEDS: Nystatin TOP POWDER* 15 GM BTL TOPICAL SCH ×2 (13:59→21:31)
[2019-04-30] MEDS: Collagenase 250 UNITS/GM OINT* 1 APPLIC OINT TOPICAL SCH (15:36)
[2019-04-30] MEDS: Doxazosin TAB* 2 MG PO SCH (21:31)
[2019-04-30] MEDS: Enoxaparin(*) 40 MG/0.4 ML SYR SUBCUT SCH (21:31)
[2019-05-01] MEDS: Pregabalin CAP(*) 50 MG PO SCH ×3 (08:52→20:58)
[2019-05-01] MEDS: Carvedilol TAB* 6.25 MG PO SCH ×2 (08:53→20:59)
[2019-05-01] MEDS: LEVORPHANOL 2 MG PO SCH ×3 (08:53→20:58)
[2019-05-01] MEDS: Cyanocobalamin TAB* 500 MCG PO SCH (08:53)
[2019-05-01] MEDS: Cholecalciferol TAB* 1000 UNITS PO SCH (08:53)
[2019-05-01] MEDS: Aspirin EC TAB* 81 MG TAB.EC PO SCH (08:54)
[2019-05-01] MEDS: Pantoprazole TAB * 40 MG TAB PO SCH ×2 (08:54→20:59)
[2019-05-01] MEDS: Ferrous Gluconate TAB* 324 MG TAB PO SCH (08:54)
[2019-05-01] MEDS: Isosorbide Dinitrate TAB* 10 MG PO SCH ×3 (08:54→20:59)
[2019-05-01] MEDS: amLODIPine TAB* 5 MG PO SCH (08:54)
[2019-05-01] MEDS: Collagenase 250 UNITS/GM OINT* 1 APPLIC OINT TOPICAL SCH (10:39)
[2019-05-01] MEDS: Nystatin TOP POWDER* 15 GM BTL TOPICAL SCH ×2 (10:39→21:18)
[2019-05-01] MEDS: Enoxaparin(*) 40 MG/0.4 ML SYR SUBCUT SCH (20:59)
[2019-05-01] MEDS: Doxazosin TAB* 2 MG PO SCH (20:59)
[2019-05-02] MEDS: Isosorbide Dinitrate TAB* 10 MG PO SCH ×3 (09:20→22:43)
[2019-05-02] MEDS: Pregabalin CAP(*) 50 MG PO SCH ×3 (09:20→22:41)
[2019-05-02] MEDS: Carvedilol TAB* 6.25 MG PO SCH ×2 (09:20→22:43)
[2019-05-02] MEDS: Cholecalciferol TAB* 1000 UNITS PO SCH (09:20)
[2019-05-02] MEDS: Pantoprazole TAB * 40 MG TAB PO SCH ×2 (09:21→22:43)
[2019-05-02] MEDS: Aspirin EC TAB* 81 MG TAB.EC PO SCH (09:21)
[2019-05-02] MEDS: LEVORPHANOL 2 MG PO SCH ×3 (09:21→22:43)
[2019-05-02] MEDS: Ferrous Gluconate TAB* 324 MG TAB PO SCH (09:21)
[2019-05-02] MEDS: amLODIPine TAB* 5 MG PO SCH (09:21)
[2019-05-02] MEDS: Cyanocobalamin TAB* 500 MCG PO SCH (09:26)
[2019-05-02] MEDS: Nystatin TOP POWDER* 15 GM BTL TOPICAL SCH ×2 (10:39→22:44)
[2019-05-02] MEDS: Collagenase 250 UNITS/GM OINT* 1 APPLIC OINT TOPICAL SCH (11:38)
[2019-05-02] MEDS: Doxazosin TAB* 2 MG PO SCH (22:42)
[2019-05-02] MEDS: Enoxaparin(*) 40 MG/0.4 ML SYR SUBCUT SCH (22:43)
[2019-05-03] MEDS: LEVORPHANOL 2 MG PO SCH ×3 (10:17→21:14)
[2019-05-03] MEDS: Carvedilol TAB* 6.25 MG PO SCH ×2 (10:17→21:14)
[2019-05-03] MEDS: Aspirin EC TAB* 81 MG TAB.EC PO SCH (10:17)
[2019-05-03] MEDS: amLODIPine TAB* 5 MG PO SCH (10:17)
[2019-05-03] MEDS: Isosorbide Dinitrate TAB* 10 MG PO SCH ×3 (10:17→21:14)
[2019-05-03] MEDS: Ferrous Gluconate TAB* 324 MG TAB PO SCH (10:17)
[2019-05-03] MEDS: Cholecalciferol TAB* 1000 UNITS PO SCH (10:17)
[2019-05-03] MEDS: Pregabalin CAP(*) 50 MG PO SCH ×3 (10:17→21:14)
[2019-05-03] MEDS: Nystatin TOP POWDER* 15 GM BTL TOPICAL SCH ×2 (10:18→23:01)
[2019-05-03] MEDS: Cyanocobalamin TAB* 500 MCG PO SCH (10:18)
[2019-05-03] MEDS: Collagenase 250 UNITS/GM OINT* 1 APPLIC OINT TOPICAL SCH (10:18)
[2019-05-03] MEDS: Pantoprazole TAB * 40 MG TAB PO SCH ×2 (10:18→21:14)
--- NOTE | 2019-05-03 12:08 | PN ---
Subjective Date of Service: 05/03/19 Interval History: Laila lift was delivered to wrong address. Hopefully will arrive at patient's home sometime next week. Obi tolerated breakfast well. Denies pain, fevers, chills, SOB. Two days ago, Dr. Castro increased pregabalin to 150mg tid - pt tolerating well. Objective Active Medications: Acetaminophen (Tylenol Tab*) 650 mg PO Q6H PRN PRN Reason: MILD PAIN or TEMP > 100.4 Last Admin: 04/28/19 19:44 Dose: 650 mg Amlodipine Besylate (Norvasc Tab*) 10 mg PO DAILY [facility] Last Admin: 05/03/19 10:17 Dose: 10 mg Aspirin (Aspirin Ec Tab*) 81 mg PO DAILY [facility] Last Admin: 05/03/19 10:17 Dose: 81 mg Carvedilol (Coreg Tab*) 12.5 mg PO BID [facility] Last Admin: 05/03/19 10:17 Dose: 12.5 mg Cholecalciferol (Vitamin D Tab*) 1,000 units PO DAILY [facility] Last Admin: 05/03/19 10:17 Dose: 1,000 units Collagenase (Santyl 250 Units/Gm Oint*) 1 applic TOPICAL DAILY [facility] Last Admin: 05/03/19 10:18 Dose: 1 applic Cyanocobalamin (Vitamin B12 Tab*) 1,000 mcg PO DAILY [facility] Last Admin: 05/03/19 10:18 Dose: 1,000 mcg Doxazosin Mesylate (Cardura Tab*) 2 mg PO BEDTIME [facility] Last Admin: 05/02/19 22:42 Dose: 2 mg Enoxaparin Sodium (Lovenox(*)) 40 mg SUBCUT 2100 [facility] Last Admin: 05/02/19 22:43 Dose: 40 mg Ferrous Gluconate (Fergon Tab*) 324 mg PO DAILY [facility] Last Admin: 05/03/19 10:17 Dose: 324 mg Isosorbide Dinitrate (Isordil Tab*) 10 mg PO TID [facility] Last Admin: 05/03/19 10:17 Dose: 10 mg Levorphanol Tartrate (Levorphanol 2 Mg (Nf)) 2 mg PO TID [facility] Stop: 05/09/19 20:59 Last Admin: 05/03/19 10:17 Dose: 2 mg Nystatin (Nystatin Top Powder*) 1 applic TOPICAL BID [facility] Last Admin: 05/03/19 10:18 Dose: 1 applic Ondansetron HCl (Zofran Inj*) 4 mg IV Q6H PRN PRN Reason: NAUSEA Pantoprazole Sodium (Protonix Tab*) 40 mg PO BID [facility] Last Admin: 05/03/19 10:18 Dose: 40 mg Pregabalin (Lyrica Cap(*)) 150 mg PO TID [facility] Last Admin: 05/03/19 10:17 Dose: 150 mg Vital Signs - 8 hr 05/03/19 05/03/19 07:00 10:17 Temperature 98.3 F Pulse Rate 61 Respiratory 18 17 Rate Blood Pressure 132/61 (mmHg) O2 Sat by Pulse 98 Oximetry Oxygen Devices in Use Now: None Appearance: comfortable appearing, alert and interactive Eyes: No Scleral Icterus Ears/Nose/Mouth/Throat: Clear Oropharnyx, Mucous Membranes Moist Neck: NL Appearance and Movements; NL JVP, Trachea Midline Respiratory: Symmetrical Chest Expansion and Respiratory Effort, Clear to Auscultation - anteriorly Cardiovascular: NL Sounds; No Murmurs; No JVD, RRR Abdominal: NL Sounds; No Tenderness; No Distention, No Hepatosplenomegaly, - - colostomy bag with semi-formed brown stool and gas Extremities: - - 1+ edema over LEs; superficial abrasion to posterior L heel; wound over R heel with granulation tissue and without malodor or drainage Skin: - - sacral erythema improving, open area with granulation tissue obscured by topical cream Neurological: Alert and Oriented x 3, - - nearly absent sensation and absent strength of LEs Result Diagrams: 04/26/19 05:44 04/26/19 05:44 Additional Lab and Data: Laboratory Tests 04/20/19 07:35 Prealbumin 28 Diagnostic Imagin. Exam Date: 02/11/19 - VL ANK/BRACHIAL INDICES FINDINGS: The ankle brachial index on the right was 0.39 and on the left was 0.80. The ankle-brachial indices on the prior study were 0.93 and 0.91 respectively. There is monophasic flow within the right posterior tibial artery and monophasic flow within the right dorsalis pedis artery. There is biphasic flow within the left posterior tibial artery and biphasic flow within the left dorsalis pedis artery. IMPRESSION: SIGNIFICANTLY REDUCED ANKLE-BRACHIAL INDICES AND WAVEFORMS MORE SEVERE IN THE RIGHT LOWER EXTREMITY. CONSIDER A CT ANGIOGRAM OF THE AORTA AND LOWER EXTREMITIES FOR FURTHER EVALUATION. 2. Exam Date: 02/11/19 - MRI LOWER EXTREMITY RIGHT W/O IMPRESSION: SOFT TISSUE SWELLING AND SOFT TISSUE ULCER, NO SPECIFIC EVIDENCE FOR OSTEOMYELITIS. Assess/Plan/Problems-Billing Assessment: 73M with ependymoma c/b paraplegia, neurogenic bladder, and stage 4 pressure injury s/p flap reconstruction and diverting colostomy, CAD, CKD, GERD, HTN, and asthma, with recent hospitalization at [facility] for sepsis due to sacral ulcer c/b PRES likely from linezolid, discharged to [facility], now admitted under swing status pending Laila delivery to home. - Patient Problems (1) Paraplegia Comment: Secondary to Ependyoma (dx in his 20s) - pending delivery of Laila lift at home - swing status for now - PT/OT (2) Pressure ulcer of sacral region, stage 3 Comment: s/p flap, diverting colostomy. He recently hospitalized in [place] secondary to infected decubitus. - Wound care consult appreciated (3) Chronic back pain Comment: Secondary to ependymoma. - Continue Lyrica 150 TID and levorphanol at home dose of 2mg q 8 hr - Dr. Castro is longtime pain management provider, slowly increasing pregabalin dosing (4) CAD (coronary artery disease) Current Visit: No Status: Chronic Code(s): I25.10 - ATHSCL HEART DISEASE OF [place] CORONARY ARTERY W/O ANG PCTRS SNOMED Code(s): 93786837 Comment: - Continue ASA, coreg and isordil. (5) HTN (hypertension) Comment: Pt diagnosed with PRESS during hospitalization in [place]. BP has been stable - continue amlodipine 10mg qd, doxazosin 2mg qhs, carvedilol 12.5 q12h, isosorbide dinatrate 10mg tid (6) DVT prophylaxis Comment: - enoxaparin subq
[2019-05-03] MEDS: Doxazosin TAB* 2 MG PO SCH (21:14)
[2019-05-03] MEDS: Enoxaparin(*) 40 MG/0.4 ML SYR SUBCUT SCH (21:14)
[2019-05-04 06:47] LABS: Hematocrit 30 % (42-52); Mean Platelet Volume 7.4 fL (7.4-10.4); Platelet Count 269 10^3/uL (150-450)
[2019-05-04 07:06] LABS: EGFR Non-African American 67.7 (>60)
[2019-05-04] MEDS: Aspirin EC TAB* 81 MG TAB.EC PO SCH (09:08)
[2019-05-04] MEDS: Pregabalin CAP(*) 50 MG PO SCH ×3 (09:08→20:30)
[2019-05-04] MEDS: Ferrous Gluconate TAB* 324 MG TAB PO SCH (09:08)
[2019-05-04] MEDS: Carvedilol TAB* 6.25 MG PO SCH ×2 (09:08→20:30)
[2019-05-04] MEDS: Cholecalciferol TAB* 1000 UNITS PO SCH (09:08)
[2019-05-04] MEDS: amLODIPine TAB* 5 MG PO SCH (09:09)
[2019-05-04] MEDS: Cyanocobalamin TAB* 500 MCG PO SCH (09:10)
[2019-05-04] MEDS: LEVORPHANOL 2 MG PO SCH ×3 (09:10→20:31)
[2019-05-04] MEDS: Pantoprazole TAB * 40 MG TAB PO SCH ×2 (09:10→20:31)
[2019-05-04] MEDS: Nystatin TOP POWDER* 15 GM BTL TOPICAL SCH ×2 (09:11→20:30)
[2019-05-04] MEDS: Collagenase 250 UNITS/GM OINT* 1 APPLIC OINT TOPICAL SCH (10:20)
[2019-05-04] MEDS: Isosorbide Dinitrate TAB* 10 MG PO SCH ×3 (11:11→20:30)
[2019-05-04] MEDS: Doxazosin TAB* 2 MG PO SCH (20:31)
[2019-05-04] MEDS: Enoxaparin(*) 40 MG/0.4 ML SYR SUBCUT SCH (20:32)
[2019-05-05 06:11] VITALS: BP 112/40
[2019-05-05] MEDS: Cholecalciferol TAB* 1000 UNITS PO SCH (10:12)
[2019-05-05] MEDS: Cyanocobalamin TAB* 500 MCG PO SCH (10:13)
[2019-05-05] MEDS: Pregabalin CAP(*) 50 MG PO SCH ×2 (10:13→14:43)
[2019-05-05] MEDS: Pantoprazole TAB * 40 MG TAB PO SCH (10:13)
[2019-05-05] MEDS: amLODIPine TAB* 5 MG PO SCH (10:14)
[2019-05-05] MEDS: LEVORPHANOL 2 MG PO SCH ×2 (10:14→14:43)
[2019-05-05] MEDS: Carvedilol TAB* 6.25 MG PO SCH (10:14)
[2019-05-05] MEDS: Aspirin EC TAB* 81 MG TAB.EC PO SCH (10:14)
[2019-05-05] MEDS: Ferrous Gluconate TAB* 324 MG TAB PO SCH (10:14)
[2019-05-05] MEDS: Isosorbide Dinitrate TAB* 10 MG PO SCH ×2 (10:14→14:43)
[2019-05-05] MEDS: Nystatin TOP POWDER* 15 GM BTL TOPICAL SCH (10:15)
[2019-05-05] MEDS: Collagenase 250 UNITS/GM OINT* 1 APPLIC OINT TOPICAL SCH (10:15)
== END 2019-05-05 16:00 | disposition home or self-care (01) | DRG 542 ==
LOC: MED 18:29
PROVIDERS: ADMIT Internal Medicine; ATTEND Internal Medicine
DX: C41.2 Malignant neoplasm of vertebral column (principal); L89.153 Pressure ulcer of sacral region, stage 3; I67.83 Posterior reversible encephalopathy syndrome; G82.20 Paraplegia, unspecified; K59.2 Neurogenic bowel, not elsewhere classified; L89.626 Pressure-induced deep tissue damage of left heel; L89.616 Pressure-induced deep tissue damage of right heel; L89.516 Pressure-induced deep tissue damage of right ankle; L89.226 Pressure-induced deep tissue damage of left hip; L89.216 Pressure-induced deep tissue damage of right hip; Z66 Do not resuscitate; Z75.1 Person awaiting admission to adequate facility elsewhere; D63.1 Anemia in chronic kidney disease; N31.9 Neuromuscular dysfunction of bladder, unspecified; G40.909 Epilepsy, unspecified, not intractable, without status epilepticus; G47.33 Obstructive sleep apnea (adult) (pediatric); I12.9 Hypertensive chronic kidney disease with stage 1 through stage 4 chronic kidney disease, or unspecified chronic kidney disease; N18.9 Chronic kidney disease, unspecified; G89.29 Other chronic pain; E78.5 Hyperlipidemia, unspecified; I25.10 Atherosclerotic heart disease of native coronary artery without angina pectoris; I65.29 Occlusion and stenosis of unspecified carotid artery; T83.098D Other mechanical complication of other urinary catheter, subsequent encounter; Z93.3 Colostomy status; Z82.0 Family history of epilepsy and other diseases of the nervous system
CPT/HCPCS: 36415; 80048; 82565; 83735; 85014; 85018; 85025; 85049; A9270-GY; G8978-GP-CM; G8978-GP-CN; G8979-GP-CM; J1650